=== PATIENT | male | born 1955 | race Caucasian/White ===

== ENCOUNTER 2024-07-12 10:14 | Inpatient (IN) ==
[2024-07-12 11:24] LABS: Basophils # (auto) 0.02 K/uL (0.00-0.20); Basophils % (auto) 0.1 %; Hematocrit (blood only) 36.1 % (42.0-52.0); Hemoglobin 12.1 g/dl (14.0-18.0); Immature Granulocytes # (auto) 0.14 K/uL (0.01-0.20); Lymphocytes # (auto) 0.85 K/uL (1.20-3.40); Lymphocytes % (auto) 6.2 %; Mean Corpuscular Hemoglobin 30.3 pg (25.0-34.0); Mean Corpuscular Hgb Conc 33.5 g/dL (32.0-36.0); Mean Corpuscular Volume 90.3 fL (80.0-100.0); Mean Platelet Volume 11.8 fL (9.4-12.4); Monocytes # (auto) 1.06 K/uL (0.11-0.59); Monocytes % (auto) 7.7 %; Neutrophils # (auto) 11.68 K/uL (1.40-6.50); Platelet Count 155 K/uL (130-400); RDW Standard Deviation 49.1 fL (36.4-46.3); White Blood Count 13.75 K/ul (4.8-10.8)
[2024-07-12 11:42] LABS: Albumin Level 3.4 gm/dl (3.4-5.0); BUN Creatinine Ratio 21.2 (10-20); Bilirubin Direct 0.6 mg/dl (0-0.2); Bilirubin,Total 1.3 mg/dl (0.2-1.0); Calcium 9.4 mg/dl (8.6-10.3); Creatinine Clr Calc Pharmacy 37.2 ml/min; Total Protein 5.8 gm/dl (6.0-8.3)
[2024-07-12 11:47] LABS: INR 1.1 (0.9-1.1); Partial Thromboplastin Ratio 0.9; Partial Thromboplastin Time 24 Seconds (21-31)
--- NOTE | 2024-07-12 11:47 | Emergency Department Note ---
History of Present Illness General Chief complaint: Flu Like Symptoms Stated complaint: WEEZING, COUGH, CONGESTION, DIARRHEA Time Seen by Provider: 07/12/24 10:37 History of Present Illness Provider Complaint: + nausea, + diarrhea and + abdominal pain Onset (ago): month(s) (2) Description of Vomiting: no bilious, no blood-streaked, no bloody or no coffee grounds Description of Diarrhea: no bloody (bright red) Associated Abdominal Pain: Yes Location of pain: + epigastric Severity: mild Maximum Pain Intensity: 3 Quality: + aching and + dull Pain Consistency: + intermittent Relieved By: + none Exacerbated By: + none Context: + recent antibiotic use; no alcohol abuse, no anticoagulant use or no marijuana use Associated symptoms: + cough; no myalgias, no chest pain, no dysuria, no syncope or no decreased urine output HPI Narrative: Patient reports that his symptoms have been going on since . He reports recently started wheezing also. Patient states he went to [facility] where they did tests but they have all come back negative. Home Medications Medication Instructions Recorded Confirmed Type betamethasone dipropionate 0.05 % 1 applic topical BID PRN skin 08/03/21 07/12/24 Rx topical cream irritation #45 grams carvedilol 25 mg tablet 25 mg PO BID #60 tabs 08/03/21 07/12/24 Rx nifedipine 60 mg tablet,extended 60 mg PO BID #30 tabs 08/03/21 07/12/24 Rx release triamcinolone acetonide 0.1 % 1 applic topical BID PRN Dry 08/03/21 07/12/24 Rx topical cream scaling areas #15 grams fexofenadine 180 mg tablet 180 mg PO QAM PRN Allergies 07/04/23 07/12/24 History finasteride 5 mg tablet 5 mg PO DAILY #90 tabs 08/13/23 07/12/24 Rx rosuvastatin 40 mg tablet 40 mg PO QPM #90 tabs 11/04/23 07/12/24 Rx empagliflozin 25 mg tablet 25 mg PO QAM #90 tabs 03/31/24 07/12/24 Rx sildenafil (pulm.hypertension) 20 40 mg (2 x 20 mg) PO 3XWK #90 tabs 04/01/24 07/12/24 Rx mg tablet (Revatio) tamsulosin 0.4 mg capsule 0.8 mg (2 x 0.4 mg) PO QPM #180 04/01/24 07/12/24 Rx caps lisinopril 40 mg tablet 40 mg PO QAM #90 tabs 06/19/24 07/12/24 Rx fluticasone 55 mcg-salmeterol 14 1 inh inhalation BID 07/12/24 07/12/24 History mcg/actuation breath activated powder lansoprazole 30 mg capsule,delayed 30 mg PO DAILY PRN heart burn 07/12/24 07/12/24 History release meloxicam 15 mg tablet 15 mg PO DAILY PRN Pain 07/12/24 07/12/24 History Allergies Allergy/AdvReac Type Severity Reaction Status Date / Time No Known Allergies Allergy Verified 05/14/24 10:40 Past Med/Surg History Problem List (Updated 07/12/24 @ 14:40 by Sebastien Johns MD) Transaminitis (Acute) Acute hypokalemia (Acute) Metastatic primary lung cancer (Acute) Diabetes Osteoarthritis Chronic Kidney Disease Hyperlipidemia BPH (benign prostatic hyperplasia) Tobacco dependence due to cigarettes Hypertension Medical History Full thickness rotator cuff tear History of COVID-19 2020, mild symptoms Surgical History History of arthroscopy of right shoulder 18 years ago History of colonoscopy Hx of LASIK bilateral Family History Son Kidney disease Social History Smoking Status: Current every day smoker Tobacco Type: Cigarettes Age Started Using Tobacco: 19; packs per day: 1.5; Cigarettes Per Day: 1.5 packs per day/50 years; Second Hand Exposure: Yes (childhood); Do You Dip or Chew Tobacco: No; Hx Alcohol Use: Yes Alcohol type: hard liquor Alcohol Intake Frequency: 2-4 x/Month Hx Substance Use: No Preferred Language: Belgian 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 Beliefs That Will Affect Care: None marital status: marital status details: but still living together Current Living Situation: Spouse current occupational status: retired How many Children do You have: 2 Feels Safe at Home: Yes Childhood Exposure to Second-Hand Smoke: Yes Diet: regular caffeine: Yes Dental Care, Regularly: Yes Physical Activity Frequency: Other Physical Activity Frequency Comment: Outside work Seatbelt Use: sometimes Sunscreen Use: Yes Assistive Devices: None Physical Exam 2 Vital Signs: Vital Signs - 24 hr 07/12/24 10:29 07/12/24 11:30 07/12/24 11:30 Temperature 36.5 C Temperature Source Temporal Artery Sc an Pulse Rate 87 82 Pulse Rate from Sp O2 Sensor 82 Respiratory Rate 20 14 Blood Pressure 115/67 133/67 Blood Pressure Candice n 83 88 Pulse Oximetry 94 94 Oxygen Delivery Me thod Room Air Sepsis Recent Feve r Within 48 Hours No Sepsis New/Unexpla ined Change in Men francisco Status N/A Sepsis Action Take n by Nursing No Action Required 07/12/24 11:36 07/12/24 12:00 07/12/24 12:48 Temperature Temperature Source Pulse Rate 81 86 Pulse Rate from Sp O2 Sensor 81 85 Respiratory Rate 18 17 Blood Pressure 137/80 Blood Pressure Candice n 106 Pulse Oximetry 93 94 Oxygen Delivery Me thod Sepsis Recent Feve r Within 48 Hours Sepsis New/Unexpla ined Change in Men francisco Status Sepsis Action Take n by Nursing 07/12/24 12:50 07/12/24 12:54 07/12/24 13:00 Temperature Temperature Source Pulse Rate 85 88 Pulse Rate from Sp O2 Sensor 87 Respiratory Rate 24 Blood Pressure 127/71 Blood Pressure Candice n 79 Pulse Oximetry 95 Oxygen Delivery Me thod Sepsis Recent Feve r Within 48 Hours Sepsis New/Unexpla ined Change in Men francisco Status Sepsis Action Take n by Nursing 07/12/24 13:03 07/12/24 13:30 07/12/24 13:30 Temperature Temperature Source Pulse Rate 88 85 Pulse Rate from Sp O2 Sensor 85 Respiratory Rate 19 Blood Pressure 123/76 Blood Pressure Candice n 77 Pulse Oximetry 93 Oxygen Delivery Me thod Sepsis Recent Feve r Within 48 Hours Sepsis New/Unexpla ined Change in Men francisco Status Sepsis Action Take n by Nursing 07/12/24 14:00 07/12/24 14:00 07/12/24 14:00 Temperature Temperature Source Pulse Rate 82 Pulse Rate from Sp O2 Sensor 82 Respiratory Rate 20 Blood Pressure 129/69 129/69 Blood Pressure Candice n 85 85 Pulse Oximetry 93 Oxygen Delivery Me thod Sepsis Recent Feve r Within 48 Hours Sepsis New/Unexpla ined Change in Men francisco Status Sepsis Action Take n by Nursing Physical Exam: Physical Exam GENERAL: oriented to person, place, and time. appears well-developed and well- nourished. She does not appear distressed. HENT: Exam performed. -Head: Normocephalic and atraumatic. -Right Ear: External ear normal. No mastoid erythema -Left Ear: External ear normal. No mastoid erythema -Mouth/Throat: The oropharynx is clear and moist. No trismus in the jaw. No dental abscesses or uvula swelling. No oropharyngeal exudate or tonsillar abscesses. EYES: Conjunctivae and EOM are normal.Right eye exhibits no discharge. Left eye exhibits no discharge. No scleral icterus. NECK: Normal range of motion. Neck supple. No JVD present. No tracheal deviation and normal range of motion present. CV: Normal rate, regular rhythm, normal heart sounds and intact distal pulses. There is no peripheral edema. Palpable radial pulses bue. PULM/CHEST: Effort normal and breath sounds normal. No respiratory distress. No stridor. no wheezes.no rales. -Chest Wall: no tenderness to palpation ABD: The abdomen is soft. Bowel sounds are normal. no distension. No mass is present. There is tenderness to palpation of the right upper quadrant. Mild hepatomegaly. There is no rebound, no guarding, no Rodriguez's sign and no tenderness at McBurney's point. Rovsig negative MUSC/SKEL: Normal range of motion. There is no peripheral edema, tenderness or deformity. NEURO: Motor and sensation grossly intact. SKIN: Skin is warm and dry. not diaphoretic. PSYCH: normal mood and affect. Behavior is normal. Judgment and thought content normal. Course Course 1037: The patient was evaluated in room C2. A complete history and physical exam was performed Cardiac monitoring: An order was placed for continuous cardiac monitoring. The monitor shows a rate of 90 with sinus rhythm interpreted by me 1300: Vital signs stable. Labs show leukocytosis of 13.75 hemoglobin 12.1 platelet count 155. Coagulation studies unremarkable. Labs show a potassium of 3. Creatinine of 1.79. BUN 38. Total bilirubin 1.3 direct bilirubin 0.6 AST 116 ALT 138 alkaline phosphatase 368. Potassium will be repleted. Ultrasound shows heterogeneous liver which may be thought to be due to liver disease or metastasis. A CT of the abdomen with IV contrast was recommended. Patient has an elevated creatinine and a GFR of 40. Discussed with Dr. Vieira from radiology who reviewed the patient's chest x-ray is now saying a lesion on his chest x-ray that is concerning for cancer. He recommended CT of the chest abdomen pelvis without contrast. 1348:Vital signs stable. CT of the chest abdomen pelvis without contrast showed a left upper lobe mass with mediastinal lymphadenopathy concerning for central lung malignancy such as small cell carcinoma. There was associated innumerable hepatic metastasis and a possible left adrenal met with a L3 met also. A pulmonology consultation was recommended. I discussed the case with Dr. Gonzalez who reviewed the patient's CT of the chest and he recommended admission for further diagnostic workup. 1439: [facility] under Dr. Hill. Medical Decision Making Laboratory Data Attestation: I reviewed the patient's lab results. 07/12/24 11:05 07/12/24 11:05 Lab Results 07/12/24 07/12/24 Range/Units 11:03 11:05 WBC 13.75 H (4.8-10.8) K/ul RBC 4.00 L (4.70-6.10) M/uL Hgb 12.1 L (14.0-18.0) g/dl Hct 36.1 L (42.0-52.0) % MCV 90.3 (80.0-100.0) fL MCH 30.3 (25.0-34.0) pg MCHC 33.5 (32.0-36.0) g/dL RDW Std Deviation 49.1 H (36.4-46.3) fL RDW Coeff of [place] 15.0 H (11.5-14.5) % Plt Count 155 (130-400) K/uL MPV 11.8 (9.4-12.4) fL Immature Gran % (Auto) 1.0 % Neut % (Auto) 85.0 % Lymph % (Auto) 6.2 % [place] % (Auto) 7.7 % Eos % (Auto) 0.0 % Baso % (Auto) 0.1 % Neut # (Auto) 11.68 H (1.40-6.50) K/uL Lymph # (Auto) 0.85 L (1.20-3.40) K/uL [place] # (Auto) 1.06 H (0.11-0.59) K/uL Eos # (Auto) 0.00 (0.00-0.50) K/uL Baso # (Auto) 0.02 (0.00-0.20) K/uL Immature Gran # (Auto) 0.14 (0.01-0.20) K/uL PT 12.0 (9.0-12.0) Seconds INR 1.1 (0.9-1.1) APTT 24 (21-31) Seconds PTT Ratio 0.9 Sodium 144 (136-145) mmol/L Potassium 3.0 L (3.5-5.1) mmol/L Chloride 108 H (98-107) mmol/L Carbon Dioxide 27 (21-32) mmol/L Anion Gap 9 (3-11) BUN 38 H (6-23) mg/dl Creatinine 1.79 H (0.6-1.4) mg/dl Est Cr Clr Drug Dosing 37.2 ml/min eGFR 40.26 BUN/Creatinine Ratio 21.2 H (10-20) Glucose 177 H (70-99(Fasting)) mg/dl Calcium 9.4 (8.6-10.3) mg/dl Magnesium 2.0 (1.7-2.4) mg/dl Total Bilirubin 1.3 H (0.2-1.0) mg/dl Direct Bilirubin 0.6 H (0-0.2) mg/dl AST 116 H (13-39) U/L ALT 138 H (7-52) U/L Alkaline Phosphatase 368 H (34-104) U/L Total Protein 5.8 L (6.0-8.3) gm/dl Albumin 3.4 (3.4-5.0) gm/dl Lipase 77 (11-82) U/L Adenovirus (PCR) Not Detected (NotDetected) B. pertussis DNA (PCR) Not Detected (NotDetected) B.parapertussis DNA PCR Not Detected (NotDetected) C. pneumoniae DNA (PCR) Not Detected (NotDetected) Coronavirus OC43 (PCR) Not Detected (NotDetected) Coronavirus HKU1 (PCR) Not Detected (NotDetected) Coronavirus 229E (PCR) Not Detected (NotDetected) SARS-CoV-2 (PCR) Not Detected (NotDetected) Coronavirus NL63 (PCR) Not Detected (NotDetected) Human Metapneumovir PCR Not Detected (NotDetected) Influenza Type A (PCR) Not Detected (NotDetected) Influenza Type B (PCR) Not Detected (NotDetected) M. pneumoniae (PCR) Not Detected (NotDetected) Parainfluenza 1 (PCR) Not Detected (NotDetected) Parainfluenza 2 (PCR) Not Detected (NotDetected) Parainfluenza 3 (PCR) Not Detected (NotDetected) Parainfluenza 4 (PCR) Not Detected (NotDetected) RSV (PCR) Not Detected (NotDetected) Entero/Rhino (PCR) Not Detected (NotDetected) Imaging Data Radiologist's Impression: Chest/Abdomen X-ray 07/12/24 10:45 PA CHEST RADIOGRAPH AND UPRIGHT AND SUPINE AP RADIOGRAPHS OF THE ABDOMEN CLINICAL HISTORY: Epigastric pain. COMPARISON STUDY: Chest radiograph May 14, 2024. FINDINGS: There is no pneumothorax or pleural effusion. A 5.1 cm left hilar mass-like density is noted. Abnormal left mediastinal contours also noted within the expected location of the AP window. No consolidation is present to suggest pneumonia. There is no evidence for pulmonary edema. Mild reticulonodular interstitial thickening is present. IMPRESSION: 1. 5.1 cm left hilar mass-like density. This is suspicious for a lung neoplasm or left hilar adenopathy. A CT of the chest is recommended for further evaluation. 2. Abnormal left mediastinal contour suggestive of lymphadenopathy. 3. Mild reticulonodular interstitial thickening within the lungs. This could be due to tiny pulmonary nodules. ACT 112: Positive. There are findings on this exam that require communication between the performing entity and the patient following Patient Test Result Information Act ([place] Act 112) guidelines. Electronically signed by: Cheo Vieira M.D. 07/12/2024 12:46 PM Gallbladder Ultrasound 07/12/24 10:45 US gallbladder CLINICAL HISTORY: Epigastric pain. COMPARISON STUDY: No previous studies for comparison. FINDINGS: The liver is enlarged, measuring 23 cm in maximal dimension. The liver parenchyma is markedly heterogeneous. There is suggestion of innumerable echogenic foci within the liver. A 1.4 cm left hepatic lobe septated cyst is present. There is no biliary ductal dilatation. The gallbladder is contracted. No gallstones are identified. There is no gallbladder wall thickening. The pancreas is largely obscured. There is no right hydronephrosis. Several right renal cysts measure up to 7.5 cm. IMPRESSION: 1. Enlarged, markedly heterogeneous liver. This heterogeneity may be due to diffuse liver disease. However, metastatic disease could appear similar. A CT of the abdomen with IV contrast is recommended to exclude liver lesions. 2. No gallstones or biliary ductal dilatation. 3. Obscured pancreas. ACT 112: Negative or not required by law. Electronically signed by: Cheo Vieira M.D. 07/12/2024 12:34 PM Abdomen/Pelvis CT 07/12/24 12:53 CT OF THE ABDOMEN AND PELVIS WITHOUT CONTRAST CLINICAL HISTORY: Evaluate for liver metastases. COMPARISON STUDY: Right upper ultrasound performed earlier today. TECHNIQUE: Axial images of the abdomen and pelvis were obtained without IV contrast. Images were reviewed in the axial, sagittal, and coronal planes. Automated exposure control was utilized for the study. A dose lowering technique was utilized adhering to the principles of ALARA. FINDINGS: No pneumatosis, free air or portal venous gas is present. The liver is enlarged and contains innumerable hypodense hepatic lesions. Index right lobe lesion on image 116 measures 7.1 cm. The liver surface is lobulated. A left adrenal nodule measures 2.6 cm. Spleen, right adrenal gland, left kidney and pancreas are unremarkable. Water attenuation right renal lesions favor cysts. There is a small amount of fluid within the abdomen and pelvis. There is no evidence for a bowel obstruction. There is colonic diverticulosis without evidence for acute diverticulitis. There is a possible lytic lesion within the right aspect of the L3 vertebral body which measures approximately 2.5 cm. No enlarged abdominal or pelvic lymph nodes are identified. There is trace pericholecystic fluid. IMPRESSION: 1. Enlarged liver with innumerable hepatic lesions consistent with metastatic disease. Possible underlying cirrhosis. 2. 2.6 cm left adrenal nodule which is suspicious for a metastasis. 3. Possible L3 vertebral body metastasis. 4. Small amount of ascites. 5. No bowel obstruction. ACT 112: Negative or not required by law. Electronically signed by: Cheo Vieira M.D. 07/12/2024 1:[address] 07/12/24 12:53 CT OF THE CHEST WITHOUT IV CONTRAST CLINICAL HISTORY: Evaluate for lung mass. COMPARISON STUDY: Chest radiograph performed earlier today. CT DOSE: 896.28 mGy.cm TECHNIQUE: Axial images of the chest were obtained without IV contrast. Images were reviewed in the axial, sagittal, and coronal planes. IV contrast was not administered for this examination. Automated exposure control was utilized for the study. A dose lowering technique was utilized adhering to the principles of ALARA. FINDINGS: Extensive mediastinal and left hilar lymphadenopathy is noted. A 4.1 x 3.9 cm anterior left hilar mass on image 120 of 257 appears to be necrotic. There is an adjacent left upper lobe lesion which measures approximately 3.9 x 3 cm. AP window lymph node measures 4.9 x 3.1 cm. Index prevascular node measures 3 x 2.2 cm. A left supraclavicular/level 4 cervical lymph node measures 1.5 x 0.9 cm. There is no pericardial effusion. Trace left pleural effusion is present. There is no pneumothorax. Moderate left upper lobe alveolar opacities are present with interlobular septal thickening. There is no pneumothorax. Numerous small lucencies within the right scapular tip are noted. The abdomen and pelvis CT will be reported separately. The liver is enlarged and contains innumerable hypodense lesions. 2.6 cm left adrenal nodule is present. IMPRESSION: 1. Left upper lobe mass-like opacity and left hilar and mediastinal lymphadenopathy, as detailed above. The findings suggest a central lung malignancy such as small cell carcinoma. Pulmonary consultation is recommended. 2. Associated left upper lobe airspace opacity with interlobular septal thickening. This may reflect postobstructive change. Lymphangitic tumor could appear similar. 3. Extensive hepatic metastases. Probable left adrenal metastasis. 4. Numerous small lucencies within the right scapular tip suspicious for skeletal metastases. 5. Trace left pleural effusion. ACT 112: Negative or not required by law. Electronically signed by: Cheo Vieira M.D. 07/12/2024 1:37 PM ECG Data Attestation: I personally reviewed and interpreted this ECG as follows: Rate (beats per minute): 86 Rhythm: normal sinus Findings: + PVC and + RBBB; no ST depression, no ST elevation or no prolonged QT MDM Narrative 1037: The patient was evaluated in room C2. A complete history and physical exam was performed Cardiac monitoring: An order was placed for continuous cardiac monitoring. The monitor shows a rate of 90 with sinus rhythm interpreted by me 1300: Vital signs stable. Labs show leukocytosis of 13.75 hemoglobin 12.1 platelet count 155. Coagulation studies unremarkable. Labs show a potassium of 3. Creatinine of 1.79. BUN 38. Total bilirubin 1.3 direct bilirubin 0.6 AST 116 ALT 138 alkaline phosphatase 368. Potassium will be repleted. Ultrasound shows heterogeneous liver which may be thought to be due to liver disease or metastasis. A CT of the abdomen with IV contrast was recommended. Patient has an elevated creatinine and a GFR of 40. Discussed with Dr. Vieira from radiology who reviewed the patient's chest x-ray is now saying a lesion on his chest x-ray that is concerning for cancer. He recommended CT of the chest abdomen pelvis without contrast. 1348:Vital signs stable. CT of the chest abdomen pelvis without contrast showed a left upper lobe mass with mediastinal lymphadenopathy concerning for central lung malignancy such as small cell carcinoma. There was associated innumerable hepatic metastasis and a possible left adrenal met with a L3 met also. A pulmonology consultation was recommended. I discussed the case with Dr. Gonzalez who reviewed the patient's CT of the chest and he recommended admission for further diagnostic workup. 1439: Spoke with Ayaan Melissa [facility] [address] hospitalist and patient will be admitted under Dr. Hill. Impression & Plan Metastatic primary lung cancer, Acute hypokalemia, Transaminitis Discharge Plan Visit Data Chief Complaint: Flu Like Symptoms Stated Complaint: WEEZING, COUGH, CONGESTION, DIARRHEA ED Provider: Sebastein Johns Discharge Problem: Metastatic primary lung cancer, Acute hypokalemia, Transaminitis Patient Disposition: Admitted As Inpatient Forms Stand Alone Forms: My [facility] Prescriptions Prescriptions: No Action rosuvastatin 40 mg tablet 40 mg PO QPM Qty: 90 3RF Rx Instructions: every evening tamsulosin 0.4 mg capsule 0.8 mg PO QPM Qty: 180 3RF sildenafil (pulm.hypertension) [Revatio] 20 mg tablet 40 mg PO 3XWK Qty: 90 2RF lisinopril 40 mg tablet 40 mg PO QAM Qty: 90 3RF finasteride 5 mg tablet 5 mg PO DAILY Qty: 90 2RF betamethasone dipropionate 0.05 % cream 1 applic topical BID PRN (Reason: skin irritation) Qty: 45 0RF carvedilol 25 mg tablet 25 mg PO BID Qty: 60 2RF Rx Instructions: must administer with a meal/food nifedipine 60 mg tablet extended release 60 mg PO BID Qty: 30 2RF triamcinolone acetonide 0.1 % cream 1 applic topical BID PRN (Reason: Dry scaling areas) Qty: 15 0RF empagliflozin 25 mg tablet 25 mg PO QAM Qty: 90 3RF fexofenadine 180 mg tablet 180 mg PO QAM PRN (Reason: Allergies) meloxicam 15 mg tablet 15 mg PO DAILY PRN (Reason: Pain) lansoprazole 30 mg capsule,delayed release(DR/EC) 30 mg PO DAILY PRN (Reason: heart burn) fluticasone propion-salmeterol 55-14 mcg/actuation aerosol powdr breath activated 1 inh INHALATION BID Referrals Referrals: Harinder Cardenas DO [Primary Care Provider] -
[2024-07-12 12:14] LABS: Adenovirus PCR Not Detected (NotDetected); Bordetella parapertussis PCR Not Detected (NotDetected); Bordetella pertussis PCR Not Detected (NotDetected); Chlamydia pneumoniae PCR Not Detected (NotDetected); Coronavirus 229E PCR Not Detected (NotDetected); Coronavirus CoV-2 (COVID19)PCR Not Detected (NotDetected); Coronavirus HKU1 PCR Not Detected (NotDetected); Coronavirus NL63 PCR Not Detected (NotDetected); Coronavirus OC43PCR Not Detected (NotDetected); Human Metapneumovirus PCR Not Detected (NotDetected); Influenza A PCR Not Detected (NotDetected); Influenza B PCR Not Detected (NotDetected); Mycoplasma pneumoniae PCR Not Detected (NotDetected); Parainfluenza Virus 1 PCR Not Detected (NotDetected); Parainfluenza Virus 2 PCR Not Detected (NotDetected); Parainfluenza Virus 3 PCR Not Detected (NotDetected); Parainfluenza Virus 4 PCR Not Detected (NotDetected); Respiratory Syncytial VirusPCR Not Detected (NotDetected); Rhinovirus/Enterovirus PCR Not Detected (NotDetected)
--- NOTE | 2024-07-12 12:36 | Ultrasound Report ---
US gallbladder CLINICAL HISTORY: Epigastric pain. COMPARISON STUDY: No previous studies for comparison. FINDINGS: The liver is enlarged, measuring 23 cm in maximal dimension. The liver parenchyma is marked ly heterogeneous. There is suggestion of innumerable echogenic foci within the liver. A 1.4 cm left h epatic lobe septated cyst is present. There is no biliary ductal dilatation. The gallbladder is contr acted. No gallstones are identified. There is no gallbladder wall thickening. The pancreas is largely obscured. There is no right hydronephrosis. Several right renal cysts measure up to 7.5 cm. IMPRESSION: 1. Enlarged, markedly heterogeneous liver. This heterogeneity may be due to diffuse liver disease. H owever, metastatic disease could appear similar. A CT of the abdomen with IV contrast is recommended to exclude liver lesions. 2. No gallstones or biliary ductal dilatation. 3. Obscured pancreas. ACT 112: Negative or not required by law. Electronically signed by: Cheo Vieira M.D. 07/12/2024 12:34 PM
--- NOTE | 2024-07-12 12:48 | XRay Report ---
PA CHEST RADIOGRAPH AND UPRIGHT AND SUPINE AP RADIOGRAPHS OF THE ABDOMEN CLINICAL HISTORY: Epigastric pain. COMPARISON STUDY: Chest radiograph May 14, 2024. FINDINGS: There is no pneumothorax or pleural effusion. A 5.1 cm left hilar mass-like density is not ed. Abnormal left mediastinal contours also noted within the expected location of the AP window. No c onsolidation is present to suggest pneumonia. There is no evidence for pulmonary edema. Mild reticulo nodular interstitial thickening is present. IMPRESSION: 1. 5.1 cm left hilar mass-like density. This is suspicious for a lung neoplasm or left hilar adenopat hy. A CT of the chest is recommended for further evaluation. 2. Abnormal left mediastinal contour suggestive of lymphadenopathy. 3. Mild reticulonodular interstitial thickening within the lungs. This could be due to tiny pulmonary nodules. ACT 112: Positive. There are findings on this exam that require communication between the performing entity and the patient following Patient Test Result Information Act ([place] Act 112) guidelines. Electronically signed by: Cheo Vieira M.D. 07/12/2024 12:46 PM
--- NOTE | 2024-07-12 13:40 | CT Scan Report ---
CT OF THE CHEST WITHOUT IV CONTRAST CLINICAL HISTORY: Evaluate for lung mass. COMPARISON STUDY: Chest radiograph performed earlier today. CT DOSE: 896.28 mGy.cm TECHNIQUE: Axial images of the chest were obtained without IV contrast. Images were reviewed in the axial, sagittal, and coronal planes. IV contrast was not administered for this examination. Automat ed exposure control was utilized for the study. A dose lowering technique was utilized adhering to t he principles of ALARA. FINDINGS: Extensive mediastinal and left hilar lymphadenopathy is noted. A 4.1 x 3.9 cm anterior lef t hilar mass on image 120 of 257 appears to be necrotic. There is an adjacent left upper lobe lesion which measures approximately 3.9 x 3 cm. AP window lymph node measures 4.9 x 3.1 cm. Index prevascula r node measures 3 x 2.2 cm. A left supraclavicular/level 4 cervical lymph node measures 1.5 x 0.9 cm. There is no pericardial effusion. Trace left pleural effusion is present. There is no pneumothorax. Moderate left upper lobe alveolar opacities are present with interlobular septal thickening. There is no pneumothorax. Numerous small lucencies within the right scapular tip are noted. The abdomen and p maria luisa CT will be reported separately. The liver is enlarged and contains innumerable hypodense lesion s. 2.6 cm left adrenal nodule is present. IMPRESSION: 1. Left upper lobe mass-like opacity and left hilar and mediastinal lymphadenopathy, as detailed abov e. The findings suggest a central lung malignancy such as small cell carcinoma. Pulmonary consultatio n is recommended. 2. Associated left upper lobe airspace opacity with interlobular septal thickening. This may reflect postobstructive change. Lymphangitic tumor could appear similar. 3. Extensive hepatic metastases. Probable left adrenal metastasis. 4. Numerous small lucencies within the right scapular tip suspicious for skeletal metastases. 5. Trace left pleural effusion. ACT 112: Negative or not required by law. Electronically signed by: Cheo Vieira M.D. 07/12/2024 1:37 PM
--- NOTE | 2024-07-12 13:57 | CT Scan Report ---
CT OF THE ABDOMEN AND PELVIS WITHOUT CONTRAST CLINICAL HISTORY: Evaluate for liver metastases. COMPARISON STUDY: Right upper ultrasound performed earlier today. TECHNIQUE: Axial images of the abdomen and pelvis were obtained without IV contrast. Images were revi ewed in the axial, sagittal, and coronal planes. Automated exposure control was utilized for the rhonda dy. A dose lowering technique was utilized adhering to the principles of ALARA. FINDINGS: No pneumatosis, free air or portal venous gas is present. The liver is enlarged and contain s innumerable hypodense hepatic lesions. Index right lobe lesion on image 116 measures 7.1 cm. The li becki surface is lobulated. A left adrenal nodule measures 2.6 cm. Spleen, right adrenal gland, left ki dney and pancreas are unremarkable. Water attenuation right renal lesions favor cysts. There is a sma ll amount of fluid within the abdomen and pelvis. There is no evidence for a bowel obstruction. There is colonic diverticulosis without evidence for acute diverticulitis. There is a possible lytic lesio n within the right aspect of the L3 vertebral body which measures approximately 2.5 cm. No enlarged a bdominal or pelvic lymph nodes are identified. There is trace pericholecystic fluid. IMPRESSION: 1. Enlarged liver with innumerable hepatic lesions consistent with metastatic disease. Possible under lying cirrhosis. 2. 2.6 cm left adrenal nodule which is suspicious for a metastasis. 3. Possible L3 vertebral body metastasis. 4. Small amount of ascites. 5. No bowel obstruction. ACT 112: Negative or not required by law. Electronically signed by: Cheo Vieira M.D. 07/12/2024 1:55 PM
[2024-07-12] MEDS: POTASSIUM CHLORIDE 10 MEQ TABCR PO STA (14:40)
--- NOTE | 2024-07-12 16:02 | History & Physical Report ---
Date of Service July 12, 2024 Assessment & Plan (1) Metastatic primary lung cancer: Plan: Although not proven with diagnostic tissue, imaging supports likely diagnosis of left upper lobe malignancy with metastasis to the left adrenal gland and liver. There is a questionable lesion at the L3 vertebrae. Patient reports that this was identified several years ago. Long discussion with patient and family regarding probable course of diagnostics and treatment Will consult pulmonary for consideration of robotic navigation bronchoscopy versus EBUS for tissue diagnosis of the lung Patient to be made n.p.o. at midnight. Hold meloxicam. Avoid NSAIDs to avoid bleeding risk Avoid Tylenol due to elevated LFTs Patient agrees to low-dose oxycodone as needed for pain at this time Further workup and management per pulmonary team (2) Transaminitis: Plan: Labs from 05/14/2024 within normal target range Imaging shows multiple hepatic implants consistent with metastatic disease At this time we will follow LFTs serially. No indication for high-volume fluids to treat transaminitis as it is most likely secondary to malignancy (3) Acute hypokalemia: Plan: Potassium is 3.0 Patient received 40 mill equivalents of potassium chloride by mouth in the emergency department Check repeat labs at 20:00 tonight and then serial labs in the a.m. Magnesium level 2.0 (4) Diabetes: Plan: Yxe-jccdtry-mxtimhurs Continue home medications Hemoglobin A1c 6.3% on 05/14/2024 (5) Chronic Kidney Disease: Plan: Follows with Dr. Dunn from [facility] in the [facility] Creatinine slightly elevated above normal and currently 1.79 Check serial labs in the morning (6) Tobacco dependence due to cigarettes: Plan: Greater than [id number] smoking history Currently smokes 1-1/2 packs/day No interest in smoking cessation at this time Will offer patient nicotine patch while inpatient (7) BPH (benign prostatic hyperplasia): Plan: Patient does get up during the night to urinate but has no pain and no hematuria Continue regular home meds (8) Hypertension: Plan: Blood pressure currently controlled at 129/81 Continue lisinopril 40 mg p.o. daily, carvedilol 25 mg p.o. twice daily, nifedipine 60 mg p.o. twice daily Continue rosuvastatin for hyperlipidemia (9) Pulmonary hypertension: Plan: Although I do not see pulmonary pressures on an echocardiogram, I did review cardiology note from 02/22/2022 at that time, patient was on sildenafil. Will continue at this time Further management with outpatient cardiology Plan Will hold anticoagulation at this time pending pulmonary workup SCDs as well as knee-high teds have been ordered Consider chemical prophylaxis after biopsies are completed Anticipate discharge home with family History of Present Illness Chief Complaint: Abdominal pain Primary Care Provider: Harinder Cardenas DO Attending: Dr. Kapoor This is a 69-year-old male with a past medical history of diabetes mellitus (khs-iitbokv-ffmdiuhod), BPH, CKD, hypertension, pulmonary hypertension on sildenafil, ongoing tobacco abuse. Patient presented to the emergency department for evaluation secondary to abdominal pain. He was found to have elevated LFTs. An ultrasound the abdomen was completed and showed multiple liver implants. Patient then received a CT chest abdomen pelvis (without contrast secondary to elevated creatinine) which revealed left upper lobe mass as well as possible metastatic implants to the L3 vertebrae and multiple scattered areas on the liver, and a 2.6 cm left adrenal nodule. Patient is being admitted for control of abdominal pain as well as workup for probable small cell carcinoma of the lung. 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 He does report that he smokes approximately 1-1/2 packs/day and has smoked for the past 60 years. No prior history of malignancy. Patient lives in the [facility] and follows with Dr. Daniel Dunn for chronic kidney disease. Creatinine is slightly elevated today at 1.79. BUN is 38. Patient denies any nausea or vomiting. He does have some diarrhea but this morning had a solid stool. He denies any hematochezia or melena. Patient does report history of hemorrhoids. ECG reveals normal sinus rhythm with PACs. There is also a right bundle branch block with a QTc of 512 ms. Potassium level is decreased at 3.0. Magnesium level is 2.0. LFTs are elevated with a total bilirubin of 1.3 and a direct bilirubin 0.6. AST 116, ALT 138, alkaline phosphatase 368, total protein 5.8, albumin 3.4, lipase 77. Patient did have labs on 05/14/2024. At that time LFTs were within target range. Patient does have a history of pulmonary hypertension and is currently being treated with sildenafil. No previous echocardiogram in [facility]. Cardiology note from 02/22/2022 reviewed. * Echocardiogram September 2019: Left ventricular ejection fraction 60%. AoR 2.8 cm. Mild TR. Thickened mitral valve. Trileaflet aortic valve. MAC, normal DF * Stress echocardiogram September 2020: Mario for: 5 1, 7 METS, 104% MPHR, study within normal limits * Carotid study February 2021: Mild less than 50% stenosis bilaterally * No mention of pulmonary hypertension in that note. However med list was reviewed and patient was on sildenafil (Revatio) 40 mg by mouth 3 times weekly. Patient reports to he has had back pain for greater than 20 years and was told that he had an area on the L3 vertebrae at that time. He is currently on meloxicam daily. This will be held pending biopsies. Patient denies any fever, chills, sweats, rigors. Pain is generally controlled at this time. We did discuss pain management and he agrees to trials of oxycodone so that we can avoid acetaminophen due to elevated LFTs and avoid NSAIDs to decrease risk of bleeding during procedures. Allergies Allergy/AdvReac Type Severity Reaction Status Date / Time No Known Allergies Allergy Verified 05/14/24 10:40 Home Medications Medication Instructions Recorded Confirmed Type betamethasone dipropionate 0.05 % 1 applic topical BID PRN skin 08/03/21 07/12/24 Rx topical cream irritation #45 grams carvedilol 25 mg tablet 25 mg PO BID #60 tabs 08/03/21 07/12/24 Rx nifedipine 60 mg tablet,extended 60 mg PO BID #30 tabs 08/03/21 07/12/24 Rx release triamcinolone acetonide 0.1 % 1 applic topical BID PRN Dry 08/03/21 07/12/24 Rx topical cream scaling areas #15 grams fexofenadine 180 mg tablet 180 mg PO QAM PRN Allergies 07/04/23 07/12/24 History finasteride 5 mg tablet 5 mg PO DAILY #90 tabs 08/13/23 07/12/24 Rx rosuvastatin 40 mg tablet 40 mg PO QPM #90 tabs 11/04/23 07/12/24 Rx empagliflozin 25 mg tablet 25 mg PO QAM #90 tabs 03/31/24 07/12/24 Rx sildenafil (pulm.hypertension) 20 40 mg (2 x 20 mg) PO 3XWK #90 tabs 04/01/24 07/12/24 Rx mg tablet (Revatio) tamsulosin 0.4 mg capsule 0.8 mg (2 x 0.4 mg) PO QPM #180 04/01/24 07/12/24 Rx caps lisinopril 40 mg tablet 40 mg PO QAM #90 tabs 06/19/24 07/12/24 Rx fluticasone 55 mcg-salmeterol 14 1 inh inhalation BID 07/12/24 07/12/24 History mcg/actuation breath activated powder lansoprazole 30 mg capsule,delayed 30 mg PO DAILY PRN heart burn 07/12/24 07/12/24 History release meloxicam 15 mg tablet 15 mg PO DAILY PRN Pain 07/12/24 07/12/24 History Past Med/Surg History Problem List (Updated 07/12/24 @ 18:39 by Beckie Gonzalez MD, [facility]) Metastasis to liver LAD (lymphadenopathy), mediastinal Lung mass Chronic bronchitis COPD with emphysema Pulmonary hypertension Transaminitis (Acute) Acute hypokalemia (Acute) Metastatic primary lung cancer (Acute) Diabetes Osteoarthritis Chronic Kidney Disease Hyperlipidemia BPH (benign prostatic hyperplasia) Tobacco dependence due to cigarettes Hypertension Medical History Full thickness rotator cuff tear History of COVID-2019, mild symptoms Surgical History History of arthroscopy of right shoulder 18 years ago History of colonoscopy Hx of LASIK bilateral Family History Son Kidney disease Social History Smoking Status: Current every day smoker Tobacco Type: Cigarettes Age Started Using Tobacco: 19; packs per day: 1.5; Cigarettes Per Day: 1.5 packs per day/50 years; Second Hand Exposure: Yes (childhood); Do You Dip or Chew Tobacco: No; Hx Alcohol Use: Yes Alcohol type: hard liquor Alcohol Intake Frequency: 2-4 x/Month Hx Substance Use: No Preferred Language: Japanese Systems Qa Analyst Required: No Beliefs That Will Affect Care: None marital status: marital status details: but still living together Current Living Situation: Spouse current occupational status: retired How many Children do You have: 2 Feels Safe at Home: Yes Childhood Exposure to Second-Hand Smoke: Yes Diet: regular caffeine: Yes Dental Care, Regularly: Yes Physical Activity Frequency: Other Physical Activity Frequency Comment: Outside work Seatbelt Use: sometimes Sunscreen Use: Yes Assistive Devices: None Review of Systems 2 Review of Systems: A total of 10 systems was reviewed and is negative other than as listed in the HPI Physical Exam 2 Physical Exam: GENERAL : No acute distress EYES: No icterus, gaze conjugate NOSE: No evidence of epistaxis MOUTH: No lesions or candidiasis NECK: Supple LUNGS: Rales and rhonchi on the left posterior upper and lower lombardi. Right lung lombardi are clear to auscultation. Good inspirational effort HEART: Regular, rate controlled ABDOMEN: Soft, BS Present. Patient did have pain in the midepigastric region with light palpation. He also had guarding and some pain present in the right upper quadrant. Limited pain in the left upper quadrant. No pain in the right or left lower quadrants. No appreciation of abdominal bruit. EXTREMITIES: No LE edema, pedal pulses intact and equal bilaterally NEURO: A&OX3. Pupils equal round and reactive to light. Tongue is midline. No facial droop. Brachial radialis, bicep tendon, and patellar tendons 2/4 bilaterally. Strength is equal and appropriate bilaterally. Cerebellar function is intact with rapid alternating movements, [id number], [id number]. Toes are downgoing bilaterally. Sensation is equal and appropriate bilaterally to lower extremities. No slurred speech. No apparent cognitive deficits. Results & Data Results & Data Vital Signs (Past 12 Hours) Vital Signs Temp Pulse Resp BP Pulse Ox O2 Del Method 07/12/24 14:36 99 H 18 93 07/12/24 14:30 129/81 07/12/24 14:12 94 H 21 94 07/12/24 14:00 129/69 07/12/24 14:00 129/69 07/12/24 14:00 129/69 07/12/24 14:00 82 20 93 07/12/24 13:30 85 19 93 07/12/24 13:30 123/76 07/12/24 13:03 88 07/12/24 13:00 127/71 07/12/24 12:54 88 24 95 07/12/24 12:50 85 07/12/24 12:48 86 17 94 07/12/24 12:00 137/80 07/12/24 11:36 81 18 93 07/12/24 11:30 82 14 94 07/12/24 11:30 133/67 07/12/24 10:45 95 Room Air 07/12/24 10:29 36.5 C 87 20 115/67 94 Room Air Laboratory Results 07/12/24 11:05 07/12/24 11:05 Laboratory Tests 07/12/24 11:05 Magnesium 2.0 Laboratory Tests 07/12/24 11:05 Total Bilirubin 1.3 H Direct Bilirubin 0.6 H AST 116 H ALT 138 H Alkaline Phosphatase 368 H Total Protein 5.8 L Albumin 3.4 Lipase 77 Diagnostic Findings Chest/Abdomen X-ray 07/12/24 10:45 PA CHEST RADIOGRAPH AND UPRIGHT AND SUPINE AP RADIOGRAPHS OF THE ABDOMEN CLINICAL HISTORY: Epigastric pain. COMPARISON STUDY: Chest radiograph May 14, 2024. FINDINGS: There is no pneumothorax or pleural effusion. A 5.1 cm left hilar mass-like density is noted. Abnormal left mediastinal contours also noted within the expected location of the AP window. No consolidation is present to suggest pneumonia. There is no evidence for pulmonary edema. Mild reticulonodular interstitial thickening is present. IMPRESSION: 1. 5.1 cm left hilar mass-like density. This is suspicious for a lung neoplasm or left hilar adenopathy. A CT of the chest is recommended for further evaluation. 2. Abnormal left mediastinal contour suggestive of lymphadenopathy. 3. Mild reticulonodular interstitial thickening within the lungs. This could be due to tiny pulmonary nodules. ACT 112: Positive. There are findings on this exam that require communication between the performing entity and the patient following Patient Test Result Information Act ([place] Act 112) guidelines. Electronically signed by: Cheo Vieira M.D. 07/12/2024 12:46 PM Gallbladder Ultrasound 07/12/24 10:45 US gallbladder CLINICAL HISTORY: Epigastric pain. COMPARISON STUDY: No previous studies for comparison. FINDINGS: The liver is enlarged, measuring 23 cm in maximal dimension. The liver parenchyma is markedly heterogeneous. There is suggestion of innumerable echogenic foci within the liver. A 1.4 cm left hepatic lobe septated cyst is present. There is no biliary ductal dilatation. The gallbladder is contracted. No gallstones are identified. There is no gallbladder wall thickening. The pancreas is largely obscured. There is no right hydronephrosis. Several right renal cysts measure up to 7.5 cm. IMPRESSION: 1. Enlarged, markedly heterogeneous liver. This heterogeneity may be due to diffuse liver disease. However, metastatic disease could appear similar. A CT of the abdomen with IV contrast is recommended to exclude liver lesions. 2. No gallstones or biliary ductal dilatation. 3. Obscured pancreas. ACT 112: Negative or not required by law. Electronically signed by: Cheo Vieira M.D. 07/12/2024 12:34 PM Abdomen/Pelvis CT 07/12/24 12:53 CT OF THE ABDOMEN AND PELVIS WITHOUT CONTRAST CLINICAL HISTORY: Evaluate for liver metastases. COMPARISON STUDY: Right upper ultrasound performed earlier today. TECHNIQUE: Axial images of the abdomen and pelvis were obtained without IV contrast. Images were reviewed in the axial, sagittal, and coronal planes. Automated exposure control was utilized for the study. A dose lowering technique was utilized adhering to the principles of ALARA. FINDINGS: No pneumatosis, free air or portal venous gas is present. The liver is enlarged and contains innumerable hypodense hepatic lesions. Index right lobe lesion on image 116 measures 7.1 cm. The liver surface is lobulated. A left adrenal nodule measures 2.6 cm. Spleen, right adrenal gland, left kidney and pancreas are unremarkable. Water attenuation right renal lesions favor cysts. There is a small amount of fluid within the abdomen and pelvis. There is no evidence for a bowel obstruction. There is colonic diverticulosis without evidence for acute diverticulitis. There is a possible lytic lesion within the right aspect of the L3 vertebral body which measures approximately 2.5 cm. No enlarged abdominal or pelvic lymph nodes are identified. There is trace pericholecystic fluid. IMPRESSION: 1. Enlarged liver with innumerable hepatic lesions consistent with metastatic disease. Possible underlying cirrhosis. 2. 2.6 cm left adrenal nodule which is suspicious for a metastasis. 3. Possible L3 vertebral body metastasis. 4. Small amount of ascites. 5. No bowel obstruction. ACT 112: Negative or not required by law. Electronically signed by: Cheo Vieira M.D. 07/12/2024 1:[address] 07/12/24 12:53 CT OF THE CHEST WITHOUT IV CONTRAST CLINICAL HISTORY: Evaluate for lung mass. COMPARISON STUDY: Chest radiograph performed earlier today. CT DOSE: 896.28 mGy.cm TECHNIQUE: Axial images of the chest were obtained without IV contrast. Images were reviewed in the axial, sagittal, and coronal planes. IV contrast was not administered for this examination. Automated exposure control was utilized for the study. A dose lowering technique was utilized adhering to the principles of ALARA. FINDINGS: Extensive mediastinal and left hilar lymphadenopathy is noted. A 4.1 x 3.9 cm anterior left hilar mass on image 120 of 257 appears to be necrotic. There is an adjacent left upper lobe lesion which measures approximately 3.9 x 3 cm. AP window lymph node measures 4.9 x 3.1 cm. Index prevascular node measures 3 x 2.2 cm. A left supraclavicular/level 4 cervical lymph node measures 1.5 x 0.9 cm. There is no pericardial effusion. Trace left pleural effusion is present. There is no pneumothorax. Moderate left upper lobe alveolar opacities are present with interlobular septal thickening. There is no pneumothorax. Numerous small lucencies within the right scapular tip are noted. The abdomen and pelvis CT will be reported separately. The liver is enlarged and contains innumerable hypodense lesions. 2.6 cm left adrenal nodule is present. IMPRESSION: 1. Left upper lobe mass-like opacity and left hilar and mediastinal lymphadenopathy, as detailed above. The findings suggest a central lung malignancy such as small cell carcinoma. Pulmonary consultation is recommended. 2. Associated left upper lobe airspace opacity with interlobular septal thickening. This may reflect postobstructive change. Lymphangitic tumor could appear similar. 3. Extensive hepatic metastases. Probable left adrenal metastasis. 4. Numerous small lucencies within the right scapular tip suspicious for skeletal metastases. 5. Trace left pleural effusion. ACT 112: Negative or not required by law. Electronically signed by: Cheo Vieira M.D. 07/12/2024 1:37 PM ECG Additional Comments: Code Status & VTE Plan Code Status Full resuscitation VTE Prophylaxis Plan VTE Prophylaxis will be ordered: Yes Supervising Physician Co-Signing Physician Notes I personally examined the patient and verified all funes points of history and exam, discussed case, and agree with decision making with Carlene BOWMAN abdominal pain. diagnostics noted. extensive d/w pt and family and answered all questions to the best of my ability. vitals noted nad heent nc at mmm breathing unlabored no accessory muscles good effort skin no rashes no pallor or icterus neuro no focal deficits new dx lung ca w liver mets - MRI brain, biopsy. outpt PET. pain control. outpt oncology and ongoing PCP f/u. discussed critical importance of getting enough nutrition when going through cancer/treatments - consult catapult and arresting gear officer to emphasize this and explain in different terms as well. otherwise as above PG Care Time/CCT Total # of Minutes Spent Total Time Spent with Patient: Total time spent is greater than 50% in coordination of care (as documented) at patient's floor/unit and/or counseling patient: 60 minutes wand-gs-vnel with patient, , daughter. Additional 15 minutes in discussion with attending physician. Coding Level of Care Code 21154 INT INP/OBS CARE 3/75MIN Diagnoses Metastatic primary lung cancer C34.90 Transaminitis R74.01 Acute hypokalemia E87.6 Diabetes E11.9 Chronic Kidney Disease N18.9 Tobacco dependence due to cigarettes F17.210 BPH (benign prostatic hyperplasia) N40.0 Hypertension I10 Pulmonary hypertension I27.20 Time Spent (min) 75
--- NOTE | 2024-07-12 17:18 | Pulmonary Consultation ---
Date of Consultation July 12, 2024 Assessment & Plan (1) Tobacco dependence due to cigarettes: (2) COPD with emphysema: (3) Chronic bronchitis: (4) Lung mass: (5) LAD (lymphadenopathy), mediastinal: (6) Metastasis to liver: Plan CT chest 07/12/2024 personally reviewed: Centrilobular emphysema appreciated bilaterally Left hilar mass with significant mediastinal lymphadenopathy -- Left hilar mass with significant mediastinal lymphadenopathy Metastasis to the liver With the bulky lymphadenopathy, small cell cancer is high in differential -- COPD with emphysema with chronic bronchitis On Advair HFA 55 at home Respiratory BioFire negative for everything on 07/12/2024 Recommend Spiriva or Incruse to be added to patient's regimen on discharge Plan: Given the significant liver metastasis, IR guided biopsy of the liver lesion will give us a diagnosis as well as staging IR consult has been placed Recommend MRI of the brain if not already ordered Mucinex and flutter valve for bronchitis and chest congestion All questions inquiries of the patient and patient's family were answered in depth Please note the above document was generated using voice recognition software. It may contain grammatical, syntax or spelling errors.Any formal questions or concerns about the content, text or information contained within the body of this dictation should be directly addressed to the provider for clarification. History of Present Illness History of Present Illness 69-year-old male present to the hospital for abdominal pain Past medical history: Diabetes, CKD, hypertension, BPH Pulmonary consulted for abnormal chest CT Case was discussed with Dr. Johns and brief signout was given from them in the ER At the time of examination patient's family was in the room. Patient was saturating 93-94% on room air. Heart rate was in the high 80s to low 90s He was not in any respiratory distress. Respiratory rate was in the high teens. The reason patient came to the hospital was abdominal pain. He denied any issues with his breathing He is compliant with his inhaler and uses on a regular basis He does have occasional cough, does have chest congestion and difficulty bringing up the phlegm. Denies any nausea or vomiting Does have some difficulty swallowing on and off. Denies any night sweats, no unintentional weight loss Denies any unusual headache. Does have chronic blurry vision Please make note patient was frustrated and upset. He did curse around as he initially thought that he was going to have bronchoscopy and I told him that it is better to do liver biopsy In the end of the encounter he did apologize. Social history: Greater than 67-fqwx-nlkj smoking history, currently smoking up to a pack a day. 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 Allergies Allergy/AdvReac Type Severity Reaction Status Date / Time No Known Allergies Allergy Verified 05/14/24 10:40 Home Medications Medication Instructions Recorded Confirmed Type betamethasone dipropionate 0.05 % 1 applic topical BID PRN skin 08/03/21 07/12/24 Rx topical cream irritation #45 grams carvedilol 25 mg tablet 25 mg PO BID #60 tabs 08/03/21 07/12/24 Rx nifedipine 60 mg tablet,extended 60 mg PO BID #30 tabs 08/03/21 07/12/24 Rx release triamcinolone acetonide 0.1 % 1 applic topical BID PRN Dry 08/03/21 07/12/24 Rx topical cream scaling areas #15 grams fexofenadine 180 mg tablet 180 mg PO QAM PRN Allergies 07/04/23 07/12/24 History finasteride 5 mg tablet 5 mg PO DAILY #90 tabs 08/13/23 07/12/24 Rx rosuvastatin 40 mg tablet 40 mg PO QPM #90 tabs 11/04/23 07/12/24 Rx empagliflozin 25 mg tablet 25 mg PO QAM #90 tabs 03/31/24 07/12/24 Rx sildenafil (pulm.hypertension) 20 40 mg (2 x 20 mg) PO 3XWK #90 tabs 04/01/24 07/12/24 Rx mg tablet (Revatio) tamsulosin 0.4 mg capsule 0.8 mg (2 x 0.4 mg) PO QPM #180 04/01/24 07/12/24 Rx caps lisinopril 40 mg tablet 40 mg PO QAM #90 tabs 06/19/24 07/12/24 Rx fluticasone 55 mcg-salmeterol 14 1 inh inhalation BID 07/12/24 07/12/24 History mcg/actuation breath activated powder lansoprazole 30 mg capsule,delayed 30 mg PO DAILY PRN heart burn 07/12/24 07/12/24 History release meloxicam 15 mg tablet 15 mg PO DAILY PRN Pain 07/12/24 07/12/24 History Patient History Medical History Full thickness rotator cuff tear History of COVID-19 2020, mild symptoms Surgical History History of arthroscopy of right shoulder 18 years ago History of colonoscopy Hx of LASIK bilateral Family History Son Kidney disease Social History Smoking Status: Current every day smoker Tobacco Type: Cigarettes Age Started Using Tobacco: 19; packs per day: 1.5; Cigarettes Per Day: 1.5 packs per day/50 years; Second Hand Exposure: Yes (childhood); Do You Dip or Chew Tobacco: No; Hx Alcohol Use: Yes Alcohol type: hard liquor Alcohol Intake Frequency: 2-4 x/Month Hx Substance Use: No Preferred Language: [place] Collections Technician Required: No Beliefs That Will Affect Care: None marital status: marital status details: but still living together Current Living Situation: Spouse current occupational status: retired How many Children do You have: 2 Feels Safe at Home: Yes Childhood Exposure to Second-Hand Smoke: Yes Diet: regular caffeine: Yes Dental Care, Regularly: Yes Physical Activity Frequency: Other Physical Activity Frequency Comment: Outside work Seatbelt Use: sometimes Sunscreen Use: Yes Assistive Devices: None Review of Systems 2 Review of Systems: All systems reviewed & are unremarkable except as noted in HPI & below Physical Exam 2 Physical Exam: Constitutional: No acute distress HEENT: EOMI, PERRLA Respiratory system: Decreased air entry bilaterally, no wheeze, mild crackles bilateral lower lobes, positive rhonchi CVS: S1-S2 positive, no murmurs or gallops Abdomen: Soft, nontender, nondistended, positive bowel sounds x4 Extremities: +2 pulses bilaterally radialis/ dorsalis pedis, no cyanosis, no edema Neuro: Awake alert oriented x3 Psych: Normal mood and affect G/U: No Shultz Skin: no rashes, warm and dry Lymphatic: no cervical or axillary lymphadenopathy Results & Data Results & Data Vital Signs (Past 12 Hours) Vital Signs Temp Pulse Pulse Resp BP BP Pulse Ox 07/12/24 14:36 99 H 18 93 07/12/24 14:30 92 H 16 129/81 94 07/12/24 14:30 129/81 07/12/24 14:12 94 H 21 94 07/12/24 14:00 129/69 07/12/24 14:00 129/69 07/12/24 14:00 129/69 07/12/24 14:00 82 20 93 07/12/24 13:30 85 19 93 07/12/24 13:30 123/76 07/12/24 13:03 88 07/12/24 13:00 127/71 07/12/24 12:54 88 24 95 07/12/24 12:50 85 07/12/24 12:48 86 17 94 07/12/24 12:00 137/80 07/12/24 11:36 81 18 93 07/12/24 11:30 82 14 94 07/12/24 11:30 133/67 07/12/24 10:45 95 07/12/24 10:29 36.5 C 87 20 115/67 94 O2 Del Method 07/12/24 14:36 07/12/24 14:30 Room Air 07/12/24 14:30 07/12/24 14:12 07/12/24 14:00 07/12/24 14:00 07/12/24 14:00 07/12/24 14:00 07/12/24 13:30 07/12/24 13:30 07/12/24 13:03 07/12/24 13:00 07/12/24 12:54 07/12/24 12:50 07/12/24 12:48 07/12/24 12:00 07/12/24 11:36 07/12/24 11:30 07/12/24 11:30 07/12/24 10:45 Room Air 07/12/24 10:29 Room Air Laboratory Results 07/12/24 11:05 07/12/24 11:05 PG Care Time/CCT Total # of Minutes Spent Total Time Spent with Patient: Total time spent is greater than 50% in coordination of care (as documented) at patient's floor/unit and/or counseling patient: Coding Level of Care Code 78899 INT INP/OBS CARE 3/75MIN Diagnoses Tobacco dependence due to cigarettes F17.210 COPD with emphysema J43.9 Chronic bronchitis J42 Lung mass R91.8 LAD (lymphadenopathy), mediastinal R59.0 Metastasis to liver C78.7
[2024-07-12] MEDS: GADOBUTROL 65ML VIAL IV ONE (17:46)
[2024-07-12] MEDS ORDERED: TRIAMCINOLONE ACET 0.1% CR 15 GM TUBE TOP PRN (18:07)
[2024-07-12] MEDS ORDERED: POLYETHYLENE (MIRALAX) 17 GM PACK PO PRN (18:07)
[2024-07-12] MEDS ORDERED: MAGNESIUM HYDROXIDE SUSP 30 ML UDC PO PRN (18:07)
[2024-07-12] MEDS ORDERED: FEXOFENADINE HCL 180 MG TAB PO PRN (18:07)
[2024-07-12] MEDS ORDERED: PANTOprazole 40 MG TAB PO PRN (18:25)
[2024-07-12] MEDS: NICOTINE 21 MG/24 HR TDSY TD ONE (18:31)
[2024-07-12] MEDS ORDERED: BETAMETHASONE DIP AUG (DIPROLENE) 0.05% CR 15 GM TUBE EXT PRN (18:32)
[2024-07-12] MEDS: NICOTINE 21 MG/24 HR TDSY TD SCH (18:32)
--- NOTE | 2024-07-12 18:41 | Magnetic Resonance Report ---
MRI of the brain performed with and without IV contrast History: Lung cancer Comparison: None Technique: Multiplanar T1 weighted, axial T2/FLAIR, and susceptibility images were obtained without intravenous contrast. Following intravenous gadolinium based contrast administration, axial T2 weighted, diffusion, and T1-weighted images were obtained. 7.3 cc Gadavist Findings: No evidence for intracranial mass lesion, mass-effect, midline shift, or abnormal extra-axial fluid collection. Postcontrast images demonstrate no abnormal intracranial enhancement. The orbits are grossly unremarkable. Marked cerebral atrophy. Mild high signal intensity change in the white matter on T2/FLAIR, consistent with chronic small vessel ischemic disease. No abnormally reduced diffusion or evidence for acute infarct. Normal intravascular flow voids. Impression: No evidence for metastatic disease of the head Electronically signed by Pipo Celeste 07-12-2024 6:41 PM
[2024-07-12] MEDS: TAMSULOSIN HCL 0.4 MG CAP PO SCH (21:34)
[2024-07-12] MEDS: ROSUVASTATIN CALCIUM 20 MG TAB PO SCH (21:34)
[2024-07-12] MEDS: NIFEdipine EXTENDED REL 30 MG TABCR PO SCH (21:34)
[2024-07-12] MEDS: carvediloL 25 MG TAB PO SCH (22:27)
[2024-07-12] MEDS: ALUMINUM/MAGNESIUM SUSP 30 ML UDC PO PRN (23:32)
[2024-07-12] MEDS: FLUTICASONE/VILANTEROL 100/25MCG 14 PUFFS/INHALER INH SCH (23:36)
[2024-07-13] MEDS: oxyCODONE HCL IR 5 MG TAB (IMMEDIATE RELEASE) PO PRN (03:38)
[2024-07-13 04:40] LABS: Adenovirus F 40/41 PCR Not Detected (NotDetected); Astrovirus PCR Not Detected (NotDetected); Campylobacter PCR Not Detected (NotDetected); Cryptosporidium PCR Not Detected (NotDetected); Cyclospora cayetanensis PCR Not Detected (NotDetected); Entamoeba histolytica PCR Not Detected (NotDetected); Enteroaggregative E.coli(EAEC) Not Detected (NotDetected); Enteropathogenic E.coli (EPEC) Not Detected (NotDetected); Enterotoxigenic E.coli (ETEC) Not Detected (NotDetected); Giardia lamblia PCR Not Detected (NotDetected); Norovirus GI/GII PCR Not Detected (NotDetected); Plesiomonas shigelloides PCR Not Detected (NotDetected); Rotavirus A PCR Not Detected (NotDetected); Salmonella PCR Not Detected (NotDetected); Sapovirus PCR Not Detected (NotDetected); Shiga-like Toxin E.coli (STEC) Not Detected (NotDetected); Shigella/Enteroinvasive E.coli Not Detected (NotDetected); Vibrio cholerae PCR Not Detected (NotDetected); Vibrio species PCR Not Detected (NotDetected); Yersinia enterocolitica PCR Not Detected (NotDetected)
--- NOTE | 2024-07-13 06:52 | Hospitalist Progress Note ---
Date of Service July 13, 2024 Assessment & Plan (1) Lesion of lung: (2) Transaminitis: (3) Acute hypokalemia: (4) Diabetes: (5) Chronic Kidney Disease: (6) Tobacco dependence due to cigarettes: (7) BPH (benign prostatic hyperplasia): (8) Hypertension: (9) Pulmonary hypertension: Plan # Lung lesion Likely dx of CHATO malignancy with metastasis to the left adrenal gland and liver( Histopath awaiting). Pulm: Recs IR guided Liver biopsy( done today). Hold meloxicam. Avoid NSAIDs to avoid bleeding risk. Avoid Tylenol due to elevated LFTs Low-dose oxycodone as needed for pain. MRI brain: No e/o Mets. #Transaminitis AST/ALT/ALP: 115/126/356(stable from yesterday) Labs from 05/14/2024 within normal target range CT AP : multiple hepatic implants consistent with metastatic disease. Liver Biopsy Obtained today #Acute hypokalemia: Corrected : Potassium is 3.4 #Chronic Kidney Disease: Creatinine: 2.03 today, elevated from yesterday. NPO vs Contrast yesterday--- will trend AM labs. 500 ml bolus Isotonic given today. Follows with Dr. Dunn from [facility] [place] in the [facility] #Tobacco dependence due to cigarettes: Greater than 92-[id number]-lvpf smoking history Currently smokes 1-1/2 packs/day Not interested in smoking cessation at this time Under Nicotine patch at admission #COPD with emphysema with chronic bronchitis Respi on board: appreciate recs; On Advair HFA 55 at home Respiratory BioFire negative for everything on 07/12/2024 Recommend Spiriva or Incruse to be added to patient's regimen on discharge Other chronic #Diabetes: Tsm-htownlt-xukximxcz/ Recent HA1c 6.3% #Chronic Kidney Disease: #BPH (benign prostatic hyperplasia): Continue home meds, Notcturia noted. #Hypertension: BP currently controlled at 116/66/ Continue home med. #Pulmonary hypertension: Sildenafil continue. Plan Will hold anticoagulation at this time pending pulmonary workup SCDs as well as knee-high teds have been ordered Consider chemical prophylaxis after biopsies are completed Discharge home with family Admission and Anticipated Discharge Date Admission Date: July 12, 2024 Supervising Physician Co-Signing Physician Notes Attending Physician Supervision Note: I independently interviewed and examined the patient and verified the funes history and physical, reviewed labs and image studies and agree with findings and care plan noted above. Underwent liver biopsy today. Comfortable. Abdominal fullness symptoms persistent. Denies any change in his appetite or ora l intake. vitals noted nad heent nc at mmm breathing unlabored no accessory muscles good effort skin no rashes no pallor or icterus neuro no focal deficits Abdomen soft, distended. New Lung mass with likely metastatic lesions in liver, adrenals, adrenals, small ascites - s/p Liver biopsy. MRI brain neg. Monitor overnight. If renal function stays stable - home to have outpt PET, pain control, outpt oncology and ongoing PCP f/u. AVE - No change in PO intake. Likely due to hepato-renal syndrome d/t extensive liver mets and possible cirrhosis (per CT) or ATN from tumor load. -monitor renal fx - recheck in am. Likely to decompensate quickly if renal function worsens. Will have palliative care team see him before he leaves. otherwise as above Subjective Mr. Arcos seems overall frustrated but calmed this AM, when I saw him. He expressed frustration that he is not able to shower, he is not aware of IV fluid management ongoing. Explained him about this and reassured he can shower after biopsy procedure today. Otherwise he seems stable. Review of Systems Review of Systems: As per HPI Physical Exam Physical Exam: Constitutional: Well appearing, No acute distress, PILCCOD: Negative HEENT: Atraumatic, Normocephalic, No conjunctival injection CVS: S1 S2 no murmur, Regular Rhythm, no LE edema Respiratory: BL decreased air entry with PVBS. Diffuse rhonchi and some wheeze but No increased work of breathing GI: Soft, Nondistended, Nontender, Normal Bowel sounds + MSK: No gross deformities noted Skin: Warm, Dry, No rashes Neuro: Alert, Oriented to TPP, No Focal deficit Psych: Mood and Affect congruent, Cooperative on exam Results & Data Results & Data Vital Signs (Past 12 Hours) Vital Signs Temp Pulse Pulse Resp BP BP Pulse Ox 07/13/24 03:30 36.7 C 77 16 123/58 L 94 07/12/24 23:45 36.5 C 91 H 16 140/69 91 07/12/24 21:27 94 H 20 137/75 94 01/05/25 19:09 89 22 140/68 O2 Del Method 07/13/24 03:30 Room Air 07/12/24 23:45 Room Air 07/12/24 21:27 07/12/24 19:09 Resident Activity Tracking Resident Involvement: Resident Care Provided Care Provided: Adult Hospital Medicine
[2024-07-13 07:07] LABS: Basophils # (auto) 0.01 K/uL (0.00-0.20); Basophils % (auto) 0.1 %; Eosinophils # (auto) 0.01 K/uL (0.00-0.50); Eosinophils % (auto) 0.1 %; Hematocrit (blood only) 34.3 % (42.0-52.0); Hemoglobin 11.2 g/dl (14.0-18.0); Immature Granulocytes # (auto) 0.12 K/uL (0.01-0.20); Immature Granulocytes % (auto) 0.9 %; Lymphocytes % (auto) 6.3 %; Mean Corpuscular Hemoglobin 29.4 pg (25.0-34.0); Mean Corpuscular Hgb Conc 32.7 g/dL (32.0-36.0); Mean Platelet Volume 11.9 fL (9.4-12.4); Monocytes # (auto) 0.98 K/uL (0.11-0.59); Monocytes % (auto) 7.7 %; Neutrophils # (auto) 10.81 K/uL (1.40-6.50); Neutrophils % (auto) 84.9 %; Platelet Count 145 K/uL (130-400); RDW Coefficient of Variation 15.1 % (11.5-14.5); RDW Standard Deviation 49.6 fL (36.4-46.3); Red Blood Count 3.81 M/uL (4.70-6.10); White Blood Count 12.73 K/ul (4.8-10.8)
[2024-07-13 07:26] LABS: Albumin Globulin Ratio 1.4 (0.9-2); Albumin Level 3.1 gm/dl (3.4-5.0); BUN Creatinine Ratio 19.7 (10-20); Bilirubin,Total 1.4 mg/dl (0.2-1.0); Calcium 9.3 mg/dl (8.6-10.3); Creatinine Clr Calc Pharmacy 32.8 ml/min; Globulin 2.2 gm/dl (2.5-4.0); Magnesium 2.1 mg/dl (1.7-2.4); Potassium 3.4 mmol/L (3.5-5.1); Total Protein 5.3 gm/dl (6.0-8.3)
[2024-07-13] MEDS: SILDENAFIL CITRATE 20 MG TABLET PO SCH (07:35)
[2024-07-13] MEDS: lisinopril 40 MG TAB PO SCH (07:36)
[2024-07-13] MEDS: FINASTERIDE 5 MG TAB PO SCH (07:36)
[2024-07-13] MEDS: POTASSIUM CHLORIDE / WTR 10 MEQ/100 ML PLCT IV SCH (08:39)
[2024-07-13] MEDS: PLASMA-LYTE A 1,000 ML IV ONE (08:49)
[2024-07-13] MEDS ORDERED: FLUTICASONE/VILANTEROL 100/25MCG 14 PUFFS/INHALER INH SCH (09:00)
[2024-07-13] MEDS ORDERED: Nursing to Pharmacy Communication SCH (11:00)
[2024-07-13] MEDS: GELATIN SPONGE 12-7MM ONE (11:58)
[2024-07-13] MEDS: fentaNYL citrate PF 100 MCG/2 ML VIAL ONE (11:58)
--- NOTE | 2024-07-13 14:16 | Ultrasound Report ---
ULTRASOUND GUIDED LIVER LESION CORE BIOPSY INDICATION: Right lobe liver lesion; lung mass PROCEDURE: Procedure and risks were explained. Informed consent was obtained. A final timeout was com pleted. The abdomen was prepped and draped in sterile fashion. 1% lidocaine was utilized for skin ane sthesia. Utilizing ultrasound guidance, a 17-gauge coaxial needle was advanced into the right lobe liver lesio n. Ultrasound images were obtained. An 18-gauge core biopsy needle was advanced, and 2 cores were obt ained and given to the pathologist for review. The coaxial needle was removed after injecting a Gelfo am slurry and Band-Aid applied. The patient tolerated the procedure well. Vital signs will be monitor ed postprocedure. IMPRESSION: Right lobe liver lesion core biopsy as above. Performed, dictated, and signed by Dominik Kessler PA-C; to be co-signed by Dr. Julito Nguyen. Electronically signed by: Julito Nguyen M.D. 07/13/2024 2:21 PM
--- NOTE | 2024-07-14 06:19 | Electrocardiogram Report ---
Test Reason : Blood Pressure : */* mmHG Vent. Rate : 86 BPM Atrial Rate : 86 BPM P-R Int : 126 ms QRS Dur : 166 ms QT Int : 428 ms P-R-T Axes : 79 81 -5 degrees QTcB Int : 512 ms Sinus rhythm with Premature atrial complexes with Aberrant conduction Possible Left atrial enlargement Right bundle branch block T wave abnormality, consider inferior ischemia Abnormal ECG When compared with ECG of 12-Jul-2023 09:30, Aberrant conduction is now Present Right bundle branch block has replaced Incomplete right bundle branch block Confirmed by Bobby Hernadez ([id number]) on 07/14/2024 6:18:55 AM Referred By: REFERRED SELF Confirmed By: Bobby Hernadez
--- NOTE | 2024-07-14 06:37 | Electrocardiogram Report ---
Test Reason : Blood Pressure : */* mmHG Vent. Rate : 91 BPM Atrial Rate : 91 BPM P-R Int : 124 ms QRS Dur : 166 ms QT Int : 430 ms P-R-T Axes : 62 73 -7 degrees QTcB Int : 528 ms Poor data quality, interpretation may be adversely affected Sinus rhythm with occasional Premature ventricular complexes and Premature atrial complexes Possible Left atrial enlargement Right bundle branch block Abnormal ECG When compared with ECG of 12-Jul-2024 11:02, (unconfirmed) Premature ventricular complexes are now Present Confirmed by Bobby Hernadez ([id number]) on 07/14/2024 6:37:03 AM Referred By: REFERRED SELF Confirmed By: Bobby Hernadez
[2024-07-14 06:52] LABS: Basophils # (auto) 0.02 K/uL (0.00-0.20); Basophils % (auto) 0.1 %; Hematocrit (blood only) 35.8 % (42.0-52.0); Hemoglobin 11.8 g/dl (14.0-18.0); Immature Granulocytes # (auto) 0.11 K/uL (0.01-0.20); Immature Granulocytes % (auto) 0.7 %; Mean Corpuscular Hemoglobin 29.9 pg (25.0-34.0); Mean Corpuscular Volume 90.6 fL (80.0-100.0); Mean Platelet Volume 11.8 fL (9.4-12.4); Monocytes # (auto) 1.07 K/uL (0.11-0.59); Monocytes % (auto) 6.7 %; Neutrophils # (auto) 13.96 K/uL (1.40-6.50); Neutrophils % (auto) 87.5 %; Platelet Count 151 K/uL (130-400); RDW Coefficient of Variation 15.3 % (11.5-14.5); RDW Standard Deviation 50.4 fL (36.4-46.3); Red Blood Count 3.95 M/uL (4.70-6.10); White Blood Count 15.96 K/ul (4.8-10.8)
[2024-07-14 07:13] LABS: Albumin Globulin Ratio 1.4 (0.9-2); Albumin Level 3.3 gm/dl (3.4-5.0); BUN Creatinine Ratio 19.8 (10-20); Bilirubin,Total 1.3 mg/dl (0.2-1.0); Calcium 9.4 mg/dl (8.6-10.3); Creatinine Clr Calc Pharmacy 26.4 ml/min; Globulin 2.3 gm/dl (2.5-4.0); Potassium 3.8 mmol/L (3.5-5.1); Total Protein 5.6 gm/dl (6.0-8.3)
[2024-07-14] MEDS: ALBUT/IPRATROP 3MG/0.5MG NEB 3 ML VIAL NEB STA (08:35)
--- NOTE | 2024-07-14 09:33 | XRay Report ---
XR chest 2V PA/lateral CLINICAL HISTORY: Desat post procedure R/O collapse, some rales too TECHNIQUE: 2 views of the chest were obtained. Comparison: Comparison is made to chest and abdomen radiographs 07/12/2024 FINDINGS: No lines and tubes are seen. Calcified aortic knob is seen. There is an airspace opacity in the anter ior aspect of the left lower lung with bronchial wall thickening. No evidence of pleural effusion or pneumothorax. IMPRESSION: Airspace opacity in the anterior aspect of the left lower lung which may represent atelectasis, altho ugh aspiration/pneumonia cannot be excluded. Bronchial wall thickening suggestive of infectious/infla mmatory airways disease. ACT 112: Negative or not required by law. Electronically signed by: Jaziel Molina M.D. 07/14/2024 9:30 AM
[2024-07-14] MEDS: EMPAGLIFLOZIN 25 MG PO SCH (09:41)
[2024-07-14] MEDS: UMECLIDINIUM BROMIDE 62.5MCG/BLISTER 7 PUFFS/INHALER INH SCH (09:41)
--- NOTE | 2024-07-14 09:47 | Hospitalist Progress Note ---
Date of Service July 14, 2024 Assessment & Plan (1) Small cell lung cancer: (2) Transaminitis: (3) Acute hypokalemia: (4) Diabetes: (5) Chronic Kidney Disease: (6) Tobacco dependence due to cigarettes: (7) BPH (benign prostatic hyperplasia): (8) Hypertension: (9) Pulmonary hypertension: (10) Pneumonia: Plan # Lung Cancer: HPE: Small cell lung ca mets to liver. Discussion with pulm and oncology: Recs Chemotherapy due to advanced disease. Hold meloxicam. Avoid NSAIDs to avoid bleeding risk. Avoid Tylenol due to elevated LFTs Low-dose oxycodone as needed for pain. #Transaminitis AST/ALT/ALP: Elevated but stable from yesterday. CT AP : multiple hepatic implants consistent with metastatic disease. Biopsy confirmed SCC mets from Lung. #Possible Tumor lysis: Rapidly growing/ spreading tumor per history and investigation. Uric acid: 11.9, Creatinine: 2.8( increasing despite Fluids and oral intake) Allopurinol started per protocol: Allopurinol 600 PO x 1 day 300 BID for 2-3 days 300 OD #Chronic Kidney Disease: Creatinine: 2.5- 2.8 today, elevated from yesterday. NPO vs Contrast vs Tumor lysis syndrome vs worsening intrinsic Kidney function Uric acid: 11.9, Creatinine: 2.8( increasing despite Fluids and oral intake) Nephrology consult ordered today. Follows with Dr. Dunn from [facility] [place] in the [facility] #PNA: - Newly developed PNE on LLL. - Ceftriaxone and Azithro started. - Sputum C/S sent. #Tobacco dependence due to cigarettes: Greater than 84-hzft-hzzr smoking history Currently smokes 1-1/2 packs/day Not interested in smoking cessation at this time Under Nicotine patch at admission #COPD with emphysema with chronic bronchitis Respi on board: appreciate recs On Advair HFA 55 at home BioFire negative(07/12) Added Spiriva. Other chronic #Diabetes: Gjp-frhtwcd-unexdzctc/ Recent HA1c 6.3% #Chronic Kidney Disease: #BPH (benign prostatic hyperplasia): Continue home meds, Notcturia noted. #Hypertension: BP currently controlled at 116/66/ Continue home med. #Pulmonary hypertension: Sildenafil continue. Plan Discharge home with family once ready DVT: Mechanical SCDs. Admission and Anticipated Discharge Date Admission Date: July 12, 2024 Supervising Physician Co-Signing Physician Notes Attending Physician Supervision Note: I independently interviewed and examined the patient and verified the funes history and physical, reviewed labs and image studies and agree with findings and care plan noted above. Reported feeling short of breath and cough. No fever. Abdominal fullness symptoms persistent. vitals noted nad heent nc at mmm breathing unlabored no accessory muscles good effort skin no rashes no pallor or icterus neuro no focal deficits. left lower crackles present. AVE - No change in PO intake. ?hepato-renal syndrome d/t extensive liver mets and possible cirrhosis (per CT)/ ATN from tumor load. Worsening - -Uric acid elevated. Electrolytes normal. -consult nephro. -adding allopurinol. New Lung mass with likely metastatic lesions in liver, adrenals, adrenals, small ascites - s/p Liver biopsy - prelim report - small cell ca. MRI brain neg. -consult oncology. -planning to start chemo in 48hrs after abx. Carboplatin/Etoposide with G- CSF -Will need Mediport placement- consult general surgery in am -TLS labs -Outpatient PET -Pul input appreciated Questionable Left lower lung pneumonia -Resp biofire negative. -sputum culture ordered. -Augmentin for concern of aspiration. COPD - No PFT. continue inhalers. Hypoxia - continue O2 supplementation otherwise as above Subjective This AM Mr. Arcos still seems little frustrated. His most concerning issue today is chest congestion and not able to cough. He said he slept well with Oxygen though. Have been feeling more tired in past couple days. I tried to answer his all queries about his management. Talked to his family on second round. Her daughter RN herself was concerned. She expressed her father wants treatment started ALLEN and whole family supprt that. She was concerned about his creatinine level and I explained our workup plan. Review of Systems Review of Systems: As per HPI Physical Exam Physical Exam: Constitutional: Well appearing, No acute distress, PILCCOD: Negative HEENT: Atraumatic, Normocephalic, No conjunctival injection CVS: S1 S2 no murmur, Regular Rhythm, no LE edema Respiratory: BL decreased air entry with PVBS. Occasional rales on LLL. No increased work of breathing GI: Soft, Nondistended, Nontender, Normal Bowel sounds + MSK: No gross deformities noted Skin: Warm, Dry, No rashes Neuro: Alert, Oriented to TPP, No Focal deficit Psych: Mood and Affect congruent, Cooperative on exam Results & Data Results & Data Vital Signs (Past 12 Hours) Vital Signs Temp Pulse Pulse Resp BP Pulse Ox O2 Del Method 07/14/24 08:40 90 18 90 Room Air 07/14/24 07:33 36.5 C 83 18 119/60 91 Nasal Cannula 07/14/24 06:35 36.8 C 93 H 18 122/62 91 Nasal Cannula O2 Flow Rate 07/14/24 08:40 07/14/24 07:33 3 07/14/24 06:35 3 Resident Activity Tracking Resident Involvement: Resident Care Provided Care Provided: Adult Hospital Medicine
--- NOTE | 2024-07-14 11:40 | XCELERA ---
[id number] \\[email or web address]\[id number]}[id number]
[2024-07-14] MEDS: PLASMA-LYTE A 1,000 ML IV SCH (13:14)
[2024-07-14] MEDS: cefTRIAXone SODIUM 2,000 MG/50 ML BAG IV SCH (13:17)
[2024-07-14] MEDS: AZITHROMYCIN 250 MG TAB PO ONE (13:17)
[2024-07-14] MEDS: ALBUT/IPRATROP 3MG/0.5MG NEB 3 ML VIAL NEB PRN (13:27)
[2024-07-14] MEDS: BENZONATATE 100 MG CAPSULE PO SCH (13:30)
--- NOTE | 2024-07-14 14:48 | Pulmonology Progress Note ---
Date of Service July 14, 2024 Assessment & Plan (1) Small cell lung cancer: (2) Metastasis to liver: (3) COPD with emphysema: Plan Impression: 69-year-old male with extensive history of tobacco abuse presenting with shortness of breath found to have hilar mass with extensive metastatic involvement. Liver biopsy consistent with small cell lung cancer. Per patient and family plans are to initiate of systemic chemotherapy in the next 24 hours. Recommendations: 1. Small cell lung cancer: Extensive stage: Management per medical oncology. Patient asked extensively about prognosis. Advised him that without treatment prognosis would be measured in months. With treatment, median survival is anywhere between 8 and 20 months. Patient is at risk for complications associated with chemotherapy given his renal dysfunction. 2. COPD: The patient is not bronchospastic currently. No PFTs available. Agree with Flovent/Anoro. 3. Hypoxemia: Agree with supplemental oxygen titrated to keep saturations at or above 90%. 4. Importance of smoking cessation was recommended to the patient. He expressed understanding. 5. Questionable pneumonia: The patient does have an elevated white blood cell count which is nonspecific. He is coughing and chest x-ray does demonstrate a patchy infiltrate present within the left lower lobe. Agree with antibiotics. Aspiration would be a concern so anaerobic coverage would be appropriate. Augmentin should be adequate. Total of 30 minutes was spent at bedside. Answered all questions to the patient's and family satisfaction. Would be happy to see this patient back if needed but at this point in time his care can be dictated by his primary admitting service and medical oncology Admission and Anticipated Discharge Date Admission Date: July 12, 2024 Subjective Patient seen and examined. EMR reviewed. Reviewed slides with pathology and discussed with family at bedside. Patient reports he is doing okay. He is intermittently on and off oxygen. He coughed up a small amount of blood-tinged phlegm earlier today. Chest x-ray revealed some opacification within the left lower lobe and the patient has been started on antibiotics Review of Systems 2 Review of Systems: All systems reviewed & are unremarkable except as noted in Subjective Physical Exam 2 Constitutional: WD/WN, vitals as above Neck: trachea midline, no thyromegaly Respiratory: no respiratory distress, no labored breathing, no cough and not tachypneic Auscultation: + rhonchi; no wheezes Cardiovascular: RRR, no murmur, no edema Gastrointestinal (Abdomen): normal bowel sounds, soft, nontender, no hepatosplenomegaly Musculoskeletal: Extremities: extremities normal to inspection Skin: no rashes, warm and dry Neurologic: Nonfocal exam Lymphatic: no cervical lymphadenopathy Results & Data Results & Data Vital Signs (Past 12 Hours) Vital Signs Temp Pulse Pulse Pulse Resp BP Pulse Ox 07/14/24 13:50 36.5 C 77 16 102/51 L 92 07/14/24 13:27 85 18 94 07/14/24 08:40 90 18 90 07/14/24 07:33 36.5 C 83 18 119/60 91 07/14/24 06:35 36.8 C 93 H 18 122/62 91 O2 Del Method O2 Flow Rate 07/14/24 13:50 Nasal Cannula 3 07/14/24 13:27 Nasal Cannula 3 07/14/24 08:40 Room Air 07/14/24 07:33 Nasal Cannula 3 07/14/24 06:35 Nasal Cannula 3 Laboratory Results 07/14/24 05:49 Liver biopsy consistent with small cell carcinoma Diagnostic Findings No new imaging PG Care Time/CCT Total # of Minutes Spent Total Time Spent with Patient: Total time spent is greater than 50% in coordination of care (as documented) at patient's floor/unit and/or counseling patient: Coding Level of Care Code 73811 SUB INP/OBS CARE 2/35MIN Diagnoses Small cell lung cancer C34.90 Metastasis to liver C78.7 COPD with emphysema J43.9
[2024-07-14 15:00] LABS: Calcium 9.2 mg/dl (8.6-10.3); Creatinine Clr Calc Pharmacy 23.5 ml/min; Phosphorus 3.5 mg/dl (2.5-4.9); Potassium 3.7 mmol/L (3.5-5.1); Uric Acid 11.9 mg/dl (2.6-7.2)
[2024-07-14] MEDS: AMOXICILLIN/CLAVULANATE 500 MG TAB PO SCH (16:22)
[2024-07-14] MEDS: PHENYLEPHRINE 0.25% SUPP 1 EA PR PRN (16:22)
--- NOTE | 2024-07-14 17:20 | Oncology Consultation ---
Date of Consultation July 14, 2024 Assessment & Plan (1) Small cell lung cancer: (2) Pneumonia: Plan Gentleman with extensive stage small cell lung cancer. Was diagnosed with pneumonia today and is currently on IV antibiotics. Ideally, would like to start him on treatment ALLEN however would recommend at least 48 hours of antibiotics before starting treatment. Plan to treat with carboplatin day 1, etoposide day 1-3, plus atezolizumab day 1 IV q. 21 days x 4 cycles followed by maintenance atezolizumab if he has good response to treatment. Would ideally need to get PET/CT outpatient prior to starting treatment. However, since patient would likely received first cycle of treatment inpatient, we will plan to obtain PET/CT upon discharge from hospital.Patient and his family had multiple questions which indicated were answered to their satisfaction -Continue treatment for pneumonia. Will not start chemotherapy treatment until he has received at least 48 hours of antibiotics -Plan for inpatient chemotherapy with carboplatin/etoposide with G-CSF support after at least 48 hours of antibiotics -Consider Mediport placement. This can be obtained either inpatient/outpatient -Obtain TLS labs in the setting of worsening renal function -Plan to obtain outpatient PET/CT Thank you for this consult. Oncology will continue following patient while he is in the hospital. Please feel free to call if you have any further questions. History of Present Illness Reason for Consultation: Metastatic small cell lung cancer Attending Physician: Priscila Juárez MD History of Present Illness 69-year-old gentleman who presented to the ER with abdominal pain and elevated LFTs seen on outpatient labs. CT abdomen and pelvis on 07/12/2024 revealed enlarged liver with innumerable hepatic lesions consistent with metastatic disease, possible underlying cirrhosis, 2.6 cm left adrenal nodule suspicious for metastasis and possible L3 vertebral body metastasis. CT chest also on 07/12/2024 revealed left upper lobe masslike opacity and left hilar mediastinal lymphadenopathy suggestive of central lung malignancy such as small cell carcinoma, associated left upper lobe airspace opacity with interlobular septal thickening, extensive hepatic metastasis, probable left adrenal metastasis and numerous small lucencies within right scapular tip suspicious for skeletal metastasis. He endorses about [id number] history of smoking. Complains of early satiety, abdominal pain, bloating and weight loss Brain MRI obtained on 07/12/2024 was negative for metastasis. IR guided liver biopsy obtained on 07/13/2024 was consistent with metastatic small cell lung cancer. Chest x-ray obtained today revealed airspace opacity in anterior aspect of left lower lung which may represent atelectasis, although aspiration/pneumonia cannot be excluded, bronchial wall thickening suggestive of infectious/inflammatory airway. Labs obtained today showed leukocytosis with white count of 15.96. Due to concern for pneumonia, he was started on antibiotics today. Allergies Allergy/AdvReac Type Severity Reaction Status Date / Time No Known Allergies Allergy Verified 05/14/24 10:40 Home Medications Medication Instructions Recorded Confirmed Type betamethasone dipropionate 0.05 % 1 applic topical BID PRN skin 08/03/21 07/12/24 Rx topical cream irritation #45 grams carvedilol 25 mg tablet 25 mg PO BID #60 tabs 08/03/21 07/12/24 Rx nifedipine 60 mg tablet,extended 60 mg PO BID #30 tabs 08/03/21 07/12/24 Rx release triamcinolone acetonide 0.1 % 1 applic topical BID PRN Dry 08/03/21 07/12/24 Rx topical cream scaling areas #15 grams fexofenadine 180 mg tablet 180 mg PO QAM PRN Allergies 07/04/23 07/12/24 History finasteride 5 mg tablet 5 mg PO DAILY #90 tabs 08/13/23 07/12/24 Rx rosuvastatin 40 mg tablet 40 mg PO QPM #90 tabs 11/04/23 07/12/24 Rx empagliflozin 25 mg tablet 25 mg PO QAM #90 tabs 03/31/24 07/12/24 Rx sildenafil (pulm.hypertension) 20 40 mg (2 x 20 mg) PO 3XWK #90 tabs 04/01/24 07/12/24 Rx mg tablet (Revatio) tamsulosin 0.4 mg capsule 0.8 mg (2 x 0.4 mg) PO QPM #180 04/01/24 07/12/24 Rx caps lisinopril 40 mg tablet 40 mg PO QAM #90 tabs 06/19/24 07/12/24 Rx fluticasone 55 mcg-salmeterol 14 1 inh inhalation BID 07/12/24 07/12/24 History mcg/actuation breath activated powder lansoprazole 30 mg capsule,delayed 30 mg PO DAILY PRN heart burn 07/12/24 07/12/24 History release meloxicam 15 mg tablet 15 mg PO DAILY PRN Pain 07/12/24 07/12/24 History Patient History Medical History Full thickness rotator cuff tear History of COVID-19 2020, mild symptoms Surgical History History of arthroscopy of right shoulder 18 years ago History of colonoscopy Hx of LASIK bilateral Family History Son Kidney disease Social History Smoking Status: Current every day smoker Tobacco Type: Cigarettes Age Started Using Tobacco: 19; packs per day: 1.5; Cigarettes Per Day: 30; Second Hand Exposure: Yes (childhood); Do You Dip or Chew Tobacco: No; Hx Alcohol Use: No Hx Substance Use: No Preferred Language: Sudanese Communication Ability: Effective Loader Required: No Beliefs That Will Affect Care: None marital status: marital status details: but still living together Current Living Situation: Spouse current occupational status: retired How many Children do You have: 2 Feels Safe at Home: Yes Childhood Exposure to Second-Hand Smoke: Yes Diet: regular caffeine: Yes Dental Care, Regularly: Yes Physical Activity Frequency: Other Physical Activity Frequency Comment: Outside work Seatbelt Use: sometimes Sunscreen Use: Yes Assistive Devices: None Results & Data Vital Signs (Past 12 Hours) Vital Signs Temp Pulse Pulse Pulse Resp BP Pulse Ox 07/14/24 13:50 36.5 C 77 16 102/51 L 92 07/14/24 13:27 85 18 94 07/14/24 09:35 07/14/24 08:40 90 18 90 07/14/24 07:33 36.5 C 83 18 119/60 91 07/14/24 06:35 36.8 C 93 H 18 122/62 91 O2 Del Method O2 Flow Rate 07/14/24 13:50 Nasal Cannula 3 07/14/24 13:27 Nasal Cannula 3 07/14/24 09:35 Nasal Cannula 3 07/14/24 08:40 Room Air 07/14/24 07:33 Nasal Cannula 3 07/14/24 06:35 Nasal Cannula 3
[2024-07-14] MEDS: SODIUM CHLORIDE 0.9% 1,000 ML IV SCH (17:32)
--- NOTE | 2024-07-14 18:14 | Nephrology Consultation ---
Date of Consultation July 14, 2024 Assessment & Plan (1) Acute kidney injury: (2) Tumor lysis syndrome: (3) Pneumonia: (4) Small cell lung cancer: (5) Metastasis to liver: (6) Diabetes: (7) Hypertension: Plan 69-year-old man with stage IIIa CKD baseline creatinine around 1.6 mg/dl with history of hypertension, diabetes and extensive history of smoking, presented to the hospital with abdominal pain and abnormal LFT. Imaging showed left lung mass with extensive skeletal and liver metastasis. Liver biopsy on 07/13/2024 consistent with metastatic small cell lung cancer. Admission lab was notable for AVE, creatinine was 1.8 with rapid worsening of kidney function over 2 days and creatinine up to 2.8 this afternoon associated with hyper uricemia but normal serum calcium, potassium and phosphorus. AVE with tumor lysis syndrome and possible urate nephropathy. --Start on rasburicase --Continue on IV normal saline --hold Jardiance, consider insulin SS --No acute indication for dialysis at this time, continue close monitoring of kidney function, electrolyte, intake and output Thank you for allowing me to participate in your patient's care. It was a pleasure to see Emmett. History of Present Illness Reason for Consultation: AVE, TLS Attending Physician: Priscila Juárez MD History of Present Illness Mr. Emmett Arcos is a 69-year-old gentleman with past medical history significant for stage IIIa CKD, hypertension, diabetes, extensive history of smoking admitted with metastatic lung cancer and pneumonia. Nephrology consult requested for management of AVE with possible tumor lysis syndrome. EMR records were reviewed in detail during patient's visit. Anayeli was at bedside and PAYAM was on telephone. Emmett presented to the ER on 07/12/24 with abdominal pain and elevated LFTs seen on outpatient labs. Has been noticing some weight loss recently associated with poor appetite and abdominal bloating. Initial x-ray of the abdomen was concerning for left lung nodule and had CT chest, abdomen and pelvis without contrast on 07/12/2024 revealed left upper lobe mass and left hilar mediastinal lymphadenopathy, associated left upper lobe airspace opacity with interlobular septal thickening, extensive hepatic metastasis, probable left adrenal metastasis and numerous small lucencies within right scapular tip suspicious for skeletal metastasis. MRI brain was negative for metastasis. IR guided liver biopsy on 07/13/2024 was consistent with metastatic small cell lung cancer. Evalu ated by oncology and plan to start on chemotherapy after being on antibiotic for 48 hours for pneumonia. Lab on admission showed creatinine 1.8 mg/dl with baseline creatinine around 1.6 mg/dl. Kidney function rapidly worsen over last 2 days and last lab this afternoon showed creatinine of 2.8 mg/dl. Electrolyte including potassium, calcium and phosphorus normal but uric acid was elevated at 11.5. Prior urinalysis was notable for moderate degree proteinuria with history of diabetes. Renal imaging showed bilateral otherwise normal size kidney with simple cyst. Current active smoker and history of more than 60 years of heavy smoking. Lab this afternoon was notable for rapidly worsening kidney function, creatinine 2.8, uric acid 11.5 suggestive of tumor lysis syndrome. Blood pressure relatively low. Has decent urine output. Allergies Allergy/AdvReac Type Severity Reaction Status Date / Time No Known Allergies Allergy Verified 05/14/24 10:40 Home Medications Medication Instructions Recorded Confirmed Type betamethasone dipropionate 0.05 % 1 applic topical BID PRN skin 08/03/21 07/12/24 Rx topical cream irritation #45 grams carvedilol 25 mg tablet 25 mg PO BID #60 tabs 08/03/21 07/12/24 Rx nifedipine 60 mg tablet,extended 60 mg PO BID #30 tabs 08/03/21 07/12/24 Rx release triamcinolone acetonide 0.1 % 1 applic topical BID PRN Dry 08/03/21 07/12/24 Rx topical cream scaling areas #15 grams fexofenadine 180 mg tablet 180 mg PO QAM PRN Allergies 07/04/23 07/12/24 History finasteride 5 mg tablet 5 mg PO DAILY #90 tabs 08/13/23 07/12/24 Rx rosuvastatin 40 mg tablet 40 mg PO QPM #90 tabs 11/04/23 07/12/24 Rx empagliflozin 25 mg tablet 25 mg PO QAM #90 tabs 03/31/24 07/12/24 Rx sildenafil (pulm.hypertension) 20 40 mg (2 x 20 mg) PO 3XWK #90 tabs 04/01/24 07/12/24 Rx mg tablet (Revatio) tamsulosin 0.4 mg capsule 0.8 mg (2 x 0.4 mg) PO QPM #180 04/01/24 07/12/24 Rx caps lisinopril 40 mg tablet 40 mg PO QAM #90 tabs 06/19/24 07/12/24 Rx fluticasone 55 mcg-salmeterol 14 1 inh inhalation BID 07/12/24 07/12/24 History mcg/actuation breath activated powder lansoprazole 30 mg capsule,delayed 30 mg PO DAILY PRN heart burn 07/12/24 07/12/24 History release meloxicam 15 mg tablet 15 mg PO DAILY PRN Pain 07/12/24 07/12/24 History Patient History Medical History Full thickness rotator cuff tear History of COVID-19 2019, mild symptoms Surgical History History of arthroscopy of right shoulder 18 years ago History of colonoscopy Hx of LASIK bilateral Family History Son Kidney disease Social History Smoking Status: Current every day smoker Tobacco Type: Cigarettes Age Started Using Tobacco: 19; packs per day: 1.5; Cigarettes Per Day: 30; Second Hand Exposure: Yes (childhood); Do You Dip or Chew Tobacco: No; Hx Alcohol Use: No Hx Substance Use: No Preferred Language: Djiboutian Communication Ability: Effective Grain Commodity Manager Required: No Beliefs That Will Affect Care: None marital status: marital status details: but still living together Current Living Situation: Spouse current occupational status: retired How many Children do You have: 2 Feels Safe at Home: Yes Childhood Exposure to Second-Hand Smoke: Yes Diet: regular caffeine: Yes Dental Care, Regularly: Yes Physical Activity Frequency: Other Physical Activity Frequency Comment: Outside work Seatbelt Use: sometimes Sunscreen Use: Yes Assistive Devices: None Review of Systems Review of Systems: All systems reviewed & are unremarkable except as noted in HPI & below Physical Exam Constitutional: WD/WN, vitals as above + ill appearing; no acute distress Eyes: + anicteric sclerae Neck: normal visual inspection Cardiovascular: Rate/Rhythm: regular rate and regular rhythm Heart Sounds: normal S1 and normal S2 Extremities: + edema Gastrointestinal (Abdomen): Inspection/Auscultation: + abdomen distended Percussion/Palpation: + hepatomegaly and + abdomen firm; abdomen nontender Musculoskeletal: Extremities: extremities normal to inspection Skin: no rashes, warm and dry Neurologic: no focal motor deficits Psychiatric: Orientation: alert and oriented x 3 Affect: euthymic affect Results & Data Vital Signs (Past 12 Hours) Vital Signs Temp Pulse Pulse Pulse Resp BP Pulse Ox 07/14/24 13:50 36.5 C 77 16 102/51 L 92 07/14/24 13:27 85 18 94 07/14/24 09:35 07/14/24 08:40 90 18 90 07/14/24 07:33 36.5 C 83 18 119/60 91 07/14/24 06:35 36.8 C 93 H 18 122/62 91 O2 Del Method O2 Flow Rate 07/14/24 13:50 Nasal Cannula 3 07/14/24 13:27 Nasal Cannula 3 07/14/24 09:35 Nasal Cannula 3 07/14/24 08:40 Room Air 07/14/24 07:33 Nasal Cannula 3 07/14/24 06:35 Nasal Cannula 3 PG Care Time/CCT Total # of Minutes Spent Total Time Spent with Patient: Total time spent is greater than 50% in coordination of care (as documented) at patient's floor/unit and/or counseling patient: Coding Level of Care Code 11622 INT INP/OBS CARE 3/75MIN Diagnoses Acute kidney injury N17.9 Tumor lysis syndrome E88.3 Pneumonia J18.9 Small cell lung cancer C34.90 Metastasis to liver C78.7 Diabetes E11.9 Hypertension I10
[2024-07-14] MEDS: allopurinoL 300 MG TAB PO ONE ×2 (18:42→19:39)
[2024-07-14] MEDS: RASBURICASE IV ONE (19:29)
[2024-07-14] MEDS: SODIUM CHLORIDE 0.9% IV ONE (19:29)
[2024-07-14] MEDS: guaiFENesin 600 MG TABCR PO SCH (19:39)
[2024-07-14 23:51] LABS: BUN Creatinine Ratio 18.4 (10-20); Calcium 8.7 mg/dl (8.6-10.3); Creatinine Clr Calc Pharmacy 21.1 ml/min; Potassium 3.8 mmol/L (3.5-5.1)
[2024-07-15 00:08] LABS: Magnesium 2.2 mg/dl (1.7-2.4); Phosphorus 4.1 mg/dl (2.5-4.9)
--- NOTE | 2024-07-15 07:30 | Hospitalist Progress Note ---
Date of Service July 15, 2024 Assessment & Plan (1) Small cell lung cancer: (2) Transaminitis: (3) Acute hypokalemia: (4) Diabetes: (5) Chronic Kidney Disease: (6) Tobacco dependence due to cigarettes: (7) BPH (benign prostatic hyperplasia): (8) Hypertension: (9) Pulmonary hypertension: (10) Pneumonia: Plan # Lung Cancer: HPE: Small cell lung ca mets to liver. Discussion with pulm and oncology: Recs Chemotherapy due to advanced disease. Hold meloxicam. Avoid NSAIDs to avoid bleeding risk. Avoid Tylenol due to elevated LFTs Low-dose oxycodone as needed for pain. # Tumor lysis Syndrome: Rapidly growing/ spreading tumor per history and investigation. Uric acid: 11.9 Creatinine: Rising trend; 3.41---3.14 LDH: Increasing trend too (1349- 1414) #Transaminitis AST/ALT/ALP: Elevated but stable CT AP : multiple hepatic implants consistent with metastatic disease. Biopsy confirmed SCC mets from Lung. #AVE with baseline Chronic Kidney Disease: D/T tumor lysis . Creatinine: 3.24 today, elevated from yesterday. Uric acid: downtrending today(11.9--- 7.0, Creatinine: 2.8( increasing despite Fluids and oral intake) Nephrology consult ordered today. Follows with Dr. Dunn from [facility] in the [facility] #PNA: - Newly developed PNE on LLL. - Ceftriaxone and Azithro started. - Sputum C/S sent. #Tobacco dependence due to cigarettes: Greater than 60-lhfe-unbb smoking history Currently smokes 1-1/2 packs/day Not interested in smoking cessation at this time Under Nicotine patch at admission #COPD with emphysema with chronic bronchitis Respi on board: appreciate recs On Advair HFA 55 at home BioFire negative(07/12) Added Spiriva. Other chronic #Diabetes: [id number]-bhnodackb/ Recent HA1c 6.3% #Chronic Kidney Disease: #BPH (benign prostatic hyperplasia): Continue home meds, Notcturia noted. #Hypertension: BP currently controlled at 116/66/ Continue home med. #Pulmonary hypertension: Sildenafil continue. Plan Discharge home with family once ready DVT: Mechanical SCDs. Admission and Anticipated Discharge Date Admission Date: July 12, 2024 Supervising Physician Co-Signing Physician Notes Attending Physician Supervision Note: I independently interviewed and examined the patient and verified the funes history and physical, reviewed labs and image studies and agree with findings and care plan noted above. Breathing better. Cough+ Had moments of not wanting anything done. Family around - supportive. vitals noted nad heent nc at mmm breathing unlabored no accessory muscles good effort skin no rashes no pallor or icterus neuro no focal deficits. Bilateral rhonchi + AVE with TLS and urate nephropathy - normal electrolytes. CKD 3a Worsening - -s/p Rasburicase 07/14 -NSS -BP running low - see below. Small cell ca lung with metastatic lesions in liver, adrenals, adrenals, small ascites - s/p Liver biopsy. MRI brain neg. -oncology. -planning to start chemo in 48hrs after abx. Carboplatin/Etoposide with G- CSF -Will need Mediport placement -Outpatient PET -Pul input appreciated Questionable Left lower lung pneumonia -Resp biofire negative and sputum culture negative. -Augmentin for concern of aspiration. HTN- now running low. Hold nifedipine, lisinopril. continue coreg. COPD - No PFT. continue inhalers. Hypoxia - continue O2 supplementation otherwise as above Subjective Today Mr. Arcos was sitting on his bed in comfortable position. He feels better than yesterday, coughing still but feels less congested. No SOB. Chest pain. Feels tired, fatigues more than usual. Answered his and his 's question today. Review of Systems Review of Systems: As per HPI Physical Exam Physical Exam: Constitutional: Well appearing, No acute distress. HEENT: Atraumatic, Normocephalic, No conjunctival injection CVS: S1 S2 no murmur, Regular Rhythm, no LE edema Respiratory: BL decreased air entry with PVBS. Occasional rales on LLL. No increased work of breathing GI: Soft, Nondistended, Nontender, Normal Bowel sounds + MSK: No gross deformities noted Skin: Warm, Dry, No rashes Neuro: Alert, Oriented to TPP, No Focal deficit Psych: Mood and Affect congruent, Cooperative on exam Results & Data Results & Data Vital Signs (Past 12 Hours) Vital Signs Temp Pulse Resp BP Pulse Ox O2 Del Method O2 Flow Rate 07/14/24 19:48 36.6 C 79 16 110/62 92 Nasal Cannula 2 Resident Activity Tracking Resident Involvement: Resident Care Provided Care Provided: Adult [facility] Medicine
[2024-07-15 07:46] LABS: BUN Creatinine Ratio 19.6 (10-20); Calcium 8.6 mg/dl (8.6-10.3); Creatinine Clr Calc Pharmacy 19.5 ml/min; Magnesium 2.2 mg/dl (1.7-2.4); Potassium 3.8 mmol/L (3.5-5.1)
[2024-07-15] MEDS: allopurinoL 300 MG TAB PO SCH (08:00)
[2024-07-15 08:28] LABS: Basophils # (auto) 0.02 K/uL (0.00-0.20); Basophils % (auto) 0.1 %; Hematocrit (blood only) 32.4 % (42.0-52.0); Hemoglobin 10.7 g/dl (14.0-18.0); Immature Granulocytes # (auto) 0.07 K/uL (0.01-0.20); Immature Granulocytes % (auto) 0.5 %; Lymphocytes # (auto) 0.73 K/uL (1.20-3.40); Lymphocytes % (auto) 5.3 %; Mean Corpuscular Hemoglobin 30.3 pg (25.0-34.0); Mean Corpuscular Volume 91.8 fL (80.0-100.0); Mean Platelet Volume 12.5 fL (9.4-12.4); Monocytes # (auto) 0.79 K/uL (0.11-0.59); Monocytes % (auto) 5.7 %; Neutrophils % (auto) 88.4 %; Platelet Count 146 K/uL (130-400); RDW Coefficient of Variation 15.5 % (11.5-14.5); RDW Standard Deviation 51.4 fL (36.4-46.3); Red Blood Count 3.53 M/uL (4.70-6.10); White Blood Count 13.81 K/ul (4.8-10.8)
[2024-07-15] MEDS ORDERED: AZITHROMYCIN 250 MG TAB PO SCH (09:00)
--- NOTE | 2024-07-15 09:49 | Nephrology Progress Note ---
Date of Service July 15, 2024 Assessment & Plan (1) Acute kidney injury: (2) Tumor lysis syndrome: (3) Pneumonia: (4) Small cell lung cancer: (5) Metastasis to liver: (6) Diabetes: (7) Hypertension: Plan 69-year-old man with stage IIIa CKD baseline creatinine around 1.6 mg/dl with history of hypertension, diabetes and extensive history of smoking, presented to the hospital with abdominal pain and abnormal LFT. Imaging showed left lung mass with extensive skeletal and liver metastasis. Liver biopsy on 07/13/2024 consistent with metastatic small cell lung cancer. Admission lab was notable for AVE, creatinine was 1.8 with rapid worsening of kidney function over 2 days and creatinine up to 2.8 this afternoon associated with hyperuricemia but normal serum calcium, potassium and phosphorus. AVE with tumor lysis syndrome and possible urate nephropathy. Received rasburicase on 07/14/2024. Progressive worsening of kidney function noted with creatinine up to 3.4 this morning but potassium 3.8, serum calcium normal and phosphorus mildly elevated at 5.0. Uric acid improved to 7 but LDH elevated. Volume status slightly improved and reports decent urine output. Blood pressure relatively low. --Hold Norvasc as blood pressure has been low --Continue on IV normal saline --No acute indication for dialysis at this time, continue close monitoring of kidney function, electrolyte, intake and output -- Patient and family had a lot of question and quite frustrated with the fact that there is delay in starting on chemotherapy, answered all the questions and explained the reasoning why chemotherapy is being delayed with his underlying possible pneumonia and rapid progressive worsening of kidney function. Admission and Anticipated Discharge Date Admission Date: July 12, 2024 Veronica Christine was seen and evaluated with and daughter at bedside. He reports overall feeling slightly better, was able to sleep at night although feels tired. Appetite decent. Blood pressure has been variable but mostly low. Urine output unmeasured but he reports decent urine output. Kidney function worsened further, creatinine up to 3.4 associated with mild hyperphosphatemia but potassium and serum calcium normal. Uric acid dropped down to 7 from 11.9 yesterday with rasburicase and IV fluid. Review of Systems Review of Systems: All systems reviewed & are unremarkable except as noted in Subjective Physical Exam Constitutional: WD/WN, vitals as above + ill appearing; no acute distress Eyes: + anicteric sclerae Neck: normal visual inspection Cardiovascular: Rate/Rhythm: regular rate and regular rhythm Heart Sounds: normal S1 and normal S2 Extremities: + edema Gastrointestinal (Abdomen): Inspection/Auscultation: + abdomen distended Percussion/Palpation: + hepatomegaly and + abdomen firm; abdomen nontender Musculoskeletal: Extremities: extremities normal to inspection Skin: no rashes, warm and dry Neurologic: no focal motor deficits Psychiatric: Orientation: alert and oriented x 3 Affect: euthymic affect Results & Data Vital Signs (Past 12 Hours) Vital Signs Temp Pulse Resp BP Pulse Ox O2 Del Method 07/15/24 07:36 36.3 C L 83 16 93/50 L 92 Room Air PG Care Time/CCT Total # of Minutes Spent Total Time Spent with Patient: Total time spent is greater than 50% in coordination of care (as documented) at patient's floor/unit and/or counseling patient: Coding Level of Care Code 76430 SUB INP/OBS CARE 3/50MIN Diagnoses Acute kidney injury N17.9 Tumor lysis syndrome E88.3 Pneumonia J18.9 Small cell lung cancer C34.90 Metastasis to liver C78.7 Diabetes E11.9 Hypertension I10
[2024-07-15 10:46] LABS: Appearance Urine Cloudy (Clear); Bacteria Urine Automated None Seen (None Seen); Bilirubin Urine Negative (Negative); Blood Urine 1+ (Negative); Color Urine Yellow; Glucose Urine UA 2+ (Negative); Granular Casts Urine Present /lpf (None Prsent); Ketones Urine Negative (Negative); Leukocyte Esterase Urine Negative (Negative); Nitrite Urine Negative (Negative); Protein Urine 3+ (Negative); RBC Urine Automated 0-2 /hpf (0-2); Specific Gravity Urine 1.013 (1.000-1.030); Urobilinogen Urine Negative (Negative); WBC Urine Automated 0-5 /hpf (0-5)
--- NOTE | 2024-07-15 13:22 | Hematology/Oncology Prog Note ---
Date of Service July 15, 2024 Assessment & Plan (1) Small cell lung cancer: (2) Pneumonia: (3) Acute kidney injury: (4) Tumor lysis syndrome: Plan -WBC improving with antibiotics. Plan to start chemotherapy tomorrow with carboplatin day 1, etoposide day 1-3 with G-CSF support. Will renally dose etoposide for current creatinine clearance. Informed consent obtained from patient today and chemotherapy orders given to pharmacy. -Has TLS in the setting of aggressive small cell lung cancer as demonstrated by LDH of greater than 1000. He is s/p rasburicase.Repeat uric acid level was 7. Unclear if it was checked on ice. If it was not, recommend rechecking uric acid level on ice to prevent falsely low level. If uric acid level still elevated, he may require retreatment with rasburicase Admission and Anticipated Discharge Date Admission Date: July 12, 2024 Subjective WBC improving with antibiotics. Received Rasburicase yesterday for TLS Results & Data Vital Signs (Past 12 Hours) Vital Signs Temp Pulse Pulse Resp BP Pulse Ox O2 Del Method 07/15/24 12:51 73 16 90 Nasal Cannula 07/15/24 07:36 36.3 C L 83 16 93/50 L 92 Room Air 07/15/24 07:30 Room Air O2 Flow Rate 07/15/24 12:51 2 07/15/24 07:36 07/15/24 07:30
[2024-07-15 15:28] LABS: Creatinine Clr Calc Pharmacy 16.6 ml/min; Magnesium 2.2 mg/dl (1.7-2.4); Phosphorus 4.6 mg/dl (2.5-4.9); Potassium 3.5 mmol/L (3.5-5.1)
[2024-07-15 23:47] LABS: BUN Creatinine Ratio 17.8 (10-20); Calcium 8.3 mg/dl (8.6-10.3); Creatinine Clr Calc Pharmacy 15.8 ml/min; Magnesium 2.2 mg/dl (1.7-2.4); Phosphorus 5.2 mg/dl (2.5-4.9); Potassium 3.8 mmol/L (3.5-5.1)
[2024-07-16 06:10] LABS: Basophils # (auto) 0.02 K/uL (0.00-0.20); Basophils % (auto) 0.1 %; Hematocrit (blood only) 33.6 % (42.0-52.0); Hemoglobin 10.9 g/dl (14.0-18.0); Immature Granulocytes # (auto) 0.16 K/uL (0.01-0.20); Immature Granulocytes % (auto) 1.2 %; Lymphocytes # (auto) 0.64 K/uL (1.20-3.40); Lymphocytes % (auto) 4.7 %; Mean Corpuscular Hemoglobin 29.9 pg (25.0-34.0); Mean Corpuscular Hgb Conc 32.4 g/dL (32.0-36.0); Mean Corpuscular Volume 92.1 fL (80.0-100.0); Mean Platelet Volume 11.9 fL (9.4-12.4); Monocytes # (auto) 0.93 K/uL (0.11-0.59); Monocytes % (auto) 6.8 %; Neutrophils # (auto) 11.87 K/uL (1.40-6.50); Neutrophils % (auto) 87.2 %; Platelet Count 151 K/uL (130-400); RDW Coefficient of Variation 15.4 % (11.5-14.5); RDW Standard Deviation 52.2 fL (36.4-46.3); Red Blood Count 3.65 M/uL (4.70-6.10); White Blood Count 13.62 K/ul (4.8-10.8)
[2024-07-16 06:32] LABS: BUN Creatinine Ratio 16.4 (10-20); Calcium 8.5 mg/dl (8.6-10.3); Creatinine Clr Calc Pharmacy 13.9 ml/min; Phosphorus 6.3 mg/dl (2.5-4.9); Potassium 3.9 mmol/L (3.5-5.1)
[2024-07-16 06:41] LABS: Magnesium 2.2 mg/dl (1.7-2.4); Phosphorus 6.5 mg/dl (2.5-4.9)
[2024-07-16] MEDS: FOSAPREPITANT DIMEGLUMINE 150 MG in SODIUM CHLORIDE 0.9% 145 ML IV SCH (10:05)
--- NOTE | 2024-07-16 10:08 | Hospitalist Progress Note ---
Date of Service July 16, 2024 Assessment & Plan (1) Small cell lung cancer: (2) Transaminitis: (3) Acute hypokalemia: (4) Diabetes: (5) Chronic Kidney Disease: (6) Tobacco dependence due to cigarettes: (7) BPH (benign prostatic hyperplasia): (8) Hypertension: (9) Pulmonary hypertension: (10) Pneumonia: Plan # Lung Cancer: HPE: Small cell lung ca mets to liver. Discussion with pulm and oncology: Chemotherapy started today( 1st cycle). Hold meloxicam. Avoid NSAIDs to avoid bleeding risk. Avoid Tylenol due to elevated LFTs Low-dose oxycodone as needed for pain. # Tumor lysis Syndrome: Rapidly growing/ spreading tumor per history and investigation. Uric acid: Improving, recent 3.6 , no more need of Rasburicase given UA value. Creatinine: Rising trend; 3.41-->-3.14-->4.77 today LDH: Increasing trend too (1349- 1414--->1753) Possible need of HD-- will follow nephro #Transaminitis AST/ALT/ALP: Elevated but stable CT AP : multiple hepatic implants consistent with metastatic disease. Biopsy confirmed SCC mets from Lung. #AVE with baseline Chronic Kidney Disease: D/T tumor lysis syndrome. Creatinine: Up-trending, 4.77 today. Anticipate HD; will follow nephro. #PNA: - Newly developed PNE on LLL. - Augmentin D3. - Sputum C/S : Normal renny #Tobacco dependence due to cigarettes: Greater than [id number] smoking history Currently smokes 1-1/2 packs/day Not interested in smoking cessation at this time Under Nicotine patch at admission Other chronic #COPD: stable, continue inhaler. #Diabetes: [id number]/ Recent HA1c 6.3% #Chronic Kidney Disease: #BPH (benign prostatic hyperplasia): Continue home meds, Notcturia noted. #Hypertension: BP currently controlled at 116/66/ Continue home med. #Pulmonary hypertension: Sildenafil continue. Plan Chemo started today HD planned for tomorrow. DVT: Mechanical SCDs. Admission and Anticipated Discharge Date Admission Date: July 12, 2024 Supervising Physician Co-Signing Physician Notes Attending Physician Supervision Note: I independently interviewed and examined the patient and verified the funes history and physical, reviewed labs and image studies and agree with findings and care plan noted above. Walked in hallway this am. cough and breathing improving. vitals noted nad heent nc at mmm breathing unlabored no accessory muscles good effort skin no rashes no pallor or icterus neuro no focal deficits. CTA, leg edema bilateral. AVE with TLS and urate nephropathy CKD 3a Worsening - -s/p Rasburicase 07/14 -s/p IVF NSS -Planning HD - tunnel cath placement in am. Small cell ca lung with metastatic lesions in liver, adrenals, small ascites - s/p Liver biopsy. MRI brain neg. -oncology. -started chemo 07/16. Carboplatin/Etoposide with G-CSF -Will need Mediport placement -Outpatient PET -Pul input appreciated Questionable Left lower lung pneumonia -Resp biofire negative and sputum culture negative. -Finish course of Augmentin for concern of aspiration. HTN- Holding nifedipine, lisinopril. continue coreg. COPD - No PFT. continue inhalers. Hypoxia - resolved otherwise as above Subjective This AM Mr. Arcos expressed he's very anxious for he is starting chemotherapy today. Otherwise he seems doing better in terms of congestion and cough. Passing more sputum, likely because of mucinex ans explained him it useful. Counselled him my best, offered him medical management of anxiety, denied for now. Breathing well, no new SOB or CP. No leg pain, swelling, able to walk around. In facr his Oxygen is better when he walks around per his . Daughter Monalisa and at bedside, explained them ongoing management and anticipation of dialysis given trend of rising creatinine. Explained to son in phone as well. Offered them family meeting if everyone wants to sit and discuss together, they plan to be aorund 4 pm today. Review of Systems Review of Systems: As per HPI Physical Exam Physical Exam: Constitutional: Well appearing, No acute distress. HEENT: Atraumatic, Normocephalic, No conjunctival injection CVS: S1 S2 no murmur, Regular Rhythm, no LE edema Respiratory: BL decreased air entry with PVBS. BL rattles heard, Occasional rales on LLL. No increased work of breathing GI: Soft, Nondistended, Nontender, Normal Bowel sounds + MSK: No gross deformities noted Skin: Warm, Dry, No rashes Neuro: Alert, Oriented to TPP, No Focal deficit Psych: Mood and Affect congruent, Cooperative on exam Results & Data Results & Data Vital Signs (Past 12 Hours) Vital Signs Temp Pulse Resp BP Pulse Ox O2 Del Method O2 Flow Rate 07/16/24 07:15 36.3 C L 100 H 18 120/60 93 Room Air 07/16/24 06:10 101 H 18 95 Nasal Cannula 2 Resident Activity Tracking Resident Involvement: Resident Care Provided Care Provided: Adult Hospital Medicine
[2024-07-16] MEDS: PALONOSETRON 0.25 MG, dexAMETHasone 12 MG in DEXTROSE 5% 50 ML IV SCH (10:15)
--- NOTE | 2024-07-16 10:29 | Nephrology Progress Note ---
Date of Service July 16, 2024 Assessment & Plan (1) Acute kidney injury: (2) Tumor lysis syndrome: (3) Pneumonia: (4) Small cell lung cancer: (5) Metastasis to liver: (6) Diabetes: (7) Hypertension: Plan 69-year-old man with stage IIIa CKD baseline creatinine around 1.6 mg/dl with history of hypertension, diabetes and extensive history of smoking, presented to the hospital with abdominal pain and abnormal LFT. Imaging showed left lung mass with extensive skeletal and liver metastasis. Liver biopsy on 07/13/2024 consistent with metastatic small cell lung cancer. Admission lab was notable for AVE, creatinine was 1.8 with rapid worsening of kidney function over 2 days and creatinine up to 2.8 this afternoon associated with hyperuricemia but normal serum calcium, potassium and phosphorus. AVE with tumor lysis syndrome and possible urate nephropathy. Received rasburicase on 07/14/2024. Progressive worsening of kidney function noted with creatinine up to 4.8 this morning associated with multiple electrolyte abnormality including metabolic acidosis and hyperphosphatemia. Uric acid improved to 3.6 but LDH elevated. Volume status slightly improved and reports decent urine output. Blood pressure stable. --Discussed in detail with patient and family that with rapid worsening of kidney function and abnormal electrolyte, recommend to start hemodialysis will continue to monitor for renal recovery as he will be started on chemotherapy. After detailed discussion patient and family decided to go ahead with dialysis. Appreciate vascular surgery help with tunneled dialysis catheter, plan for tunneled dialysis catheter tomorrow morning and after that first dialysis treatment for 3 hours. Tomorrow chemotherapy can be given 2 hours after the completion of dialysis as per discussion with Dr. Werner. -- Dose medication for eGFR less than 10 --Left nephrology precaution for vascular access in future if kidney function does not recover Admission and Anticipated Discharge Date Admission Date: July 12, 2024 Veronica Christine was seen and evaluated with , son and daughter at bedside. He reports overall feeling about the same. Blood pressure stable. Urine output unmeasured but he reports decent urine output. Kidney function continues to worsen rapidly, creatinine up to 4.8 mg/dl associated with hyperphosphatemia and metabolic acidosis but potassium and serum calcium normal. Uric acid dropped down to 3.6 from 11.9 with rasburicase and IV fluid. Review of Systems Review of Systems: All systems reviewed & are unremarkable except as noted in Subjective Physical Exam Constitutional: WD/WN, vitals as above + ill appearing; no acute distress Eyes: + anicteric sclerae Cardiovascular: Rate/Rhythm: regular rate and regular rhythm Heart Sounds: normal S1 and normal S2 Extremities: + edema Gastrointestinal (Abdomen): Inspection/Auscultation: + abdomen distended Percussion/Palpation: + hepatomegaly; abdomen nontender Musculoskeletal: Extremities: extremities normal to inspection Skin: no rashes, warm and dry Neurologic: no focal motor deficits Psychiatric: Orientation: alert and oriented x 3 Affect: euthymic affect Results & Data Vital Signs (Past 12 Hours) Vital Signs Temp Pulse Resp BP Pulse Ox O2 Del Method O2 Flow Rate 07/16/24 07:15 36.3 C L 100 H 18 120/60 93 Room Air 07/16/24 06:10 101 H 18 95 Nasal Cannula 2 PG Care Time/CCT Total # of Minutes Spent Total Time Spent with Patient: Total time spent is greater than 50% in coordination of care (as documented) at patient's floor/unit and/or counseling patient: Coding Level of Care Code 04516 SUB INP/OBS CARE 3/50MIN Diagnoses Acute kidney injury N17.9 Tumor lysis syndrome E88.3 Pneumonia J18.9 Small cell lung cancer C34.90 Metastasis to liver C78.7 Diabetes E11.9 Hypertension I10
[2024-07-16] MEDS: SODIUM CHLORIDE 0.9% IV SCH ×2 (11:21→12:06)
[2024-07-16] MEDS: CARBOPLATIN IV SCH (11:21)
[2024-07-16] MEDS: ETOPOSIDE IV SCH (12:06)
--- NOTE | 2024-07-16 12:38 | Hematology/Oncology Prog Note ---
Date of Service July 16, 2024 Assessment & Plan (1) Small cell lung cancer: (2) Tumor lysis syndrome: (3) Acute kidney injury: Plan -Proceed with cycle 1, day 1 of treatment today with carboplatin plus etoposide. -He will receive day 2 of treatment tomorrow with single agent etoposide and day 3 of treatment on 07/18/2024. This to be followed by G-CSF 24 hours after day 3 of treatment. -Treatment has been renally dosed. -Okay to proceed with hemodialysis 2 hours after etoposide chemotherapy tomorrow Admission and Anticipated Discharge Date Admission Date: July 12, 2024 Subjective Scheduled to receive cycle 1, day 1 of treatment today. Renal function continues to worsen despite normal uric acid level. Plan for dialysis tomorrow. Results & Data Vital Signs (Past 12 Hours) Vital Signs Temp Pulse Resp BP Pulse Ox O2 Del Method O2 Flow Rate 07/16/24 12:11 36.6 C 91 H 18 112/66 94 Room Air 07/16/24 07:15 36.3 C L 100 H 18 120/60 93 Room Air 07/16/24 06:10 101 H 18 95 Nasal Cannula 2
[2024-07-16] MEDS: ONDANSETRON INJ 2 MG/ML 2 ML VIAL IV PRN (13:38)
[2024-07-16] MEDS: PROMETHAZINE HCL 25 MG TAB PO PRN (15:55)
[2024-07-16] MEDS: MELATONIN 3 MG TAB PO SCH (20:18)
[2024-07-17 06:05] LABS: Hematocrit (blood only) 32.2 % (42.0-52.0); Hemoglobin 10.3 g/dl (14.0-18.0); Mean Corpuscular Hemoglobin 29.8 pg (25.0-34.0); Mean Corpuscular Volume 93.1 fL (80.0-100.0); Mean Platelet Volume 11.8 fL (9.4-12.4); Platelet Count 144 K/uL (130-400); RDW Coefficient of Variation 15.9 % (11.5-14.5); RDW Standard Deviation 54.4 fL (36.4-46.3); Red Blood Count 3.46 M/uL (4.70-6.10); White Blood Count 11.21 K/ul (4.8-10.8)
[2024-07-17 06:30] LABS: Basophils # (auto) 0.01 K/uL (0.00-0.20); Basophils % (auto) 0.1 %; Immature Granulocytes # (auto) 0.14 K/uL (0.01-0.20); Immature Granulocytes % (auto) 1.2 %; Lymphocytes # (auto) 0.34 K/uL (1.20-3.40); Monocytes # (auto) 0.52 K/uL (0.11-0.59); Monocytes % (auto) 4.6 %; Neutrophils % (auto) 91.1 %
[2024-07-17 06:41] LABS: Albumin Level 2.8 gm/dl (3.4-5.0); BUN Creatinine Ratio 17.4 (10-20); Calcium 7.7 mg/dl (8.6-10.3); Creatinine Clr Calc Pharmacy 11.5 ml/min; Phosphorus 9.9 mg/dl (2.5-4.9); Potassium 4.6 mmol/L (3.5-5.1)
--- NOTE | 2024-07-17 07:08 | Hospitalist Progress Note ---
Date of Service July 17, 2024 Assessment & Plan (1) Small cell lung cancer: (2) Transaminitis: (3) Acute hypokalemia: (4) Diabetes: (5) Chronic Kidney Disease: (6) Tobacco dependence due to cigarettes: (7) BPH (benign prostatic hyperplasia): (8) Hypertension: (9) Pulmonary hypertension: (10) Pneumonia: Plan # Lung Cancer: HPE: Small cell lung ca mets to liver. Discussion with pulm and oncology: Chemotherapy started 07/17-> day 2/3 today Hold meloxicam. Avoid NSAIDs to avoid bleeding risk. Avoid Tylenol due to elevated LFTs Low-dose oxycodone as needed for pain. # Tumor lysis Syndrome: Rapidly growing/ spreading tumor per history and investigation. Uric acid: Improving, recent 3.6 , no need for further treatment with Rasburicase given UA value. Creatinine: Rising trend; 5.8 07/17 LDH: Increasing trend too (1349- 1414--->1753) S/p first session of HD 07/17 #Transaminitis AST/ALT/ALP: Elevated but stable CT AP : multiple hepatic implants consistent with metastatic disease. Biopsy confirmed SCC mets from Lung. #AVE with baseline Chronic Kidney Disease: D/T tumor lysis syndrome. Creatinine: Up-trending S/p 1 st session of HD on 07/17 #PNA: - Newly developed PNE on LLL. - Augmentin with coverage for aspiration PNA - Sputum C/S : Normal renny #Tobacco dependence due to cigarettes: Greater than 90-corp-[id number] smoking history Currently smokes 1-1/2 packs/day Not interested in smoking cessation at this time Under Nicotine patch at admission #HTN - Jardiance, lisinopril, nifedipine on hold due to hypotension/kidney function Other chronic #COPD: stable, continue inhaler. #Diabetes: [id number]/ Recent HA1c 6.3% #Chronic Kidney Disease: #BPH (benign prostatic hyperplasia): Continue home meds, Notcturia noted. #Pulmonary hypertension: Sildenafil continue. DVT: Mechanical SCDs. Admission and Anticipated Discharge Date Admission Date: July 12, 2024 Supervising Physician Co-Signing Physician Notes I personally examined the patient and verified funes points of history and exam, discussed case, and agree with decision making and plan documented by Dr. Ch. Evaluated patient at bedside alongside his family after his first dialysis session today. Patient was fatigued. He noted superficial pain where his PermCath was placed. Patient had first chemotherapy treatment for his aggressive small cell lung cancer yesterday. Patient required rasburicase for elevated uric acid level in the setting of tumor lysis and possible urate associated nephropathy. Continue Augmentin therapy for possible pneumonia. Subjective Pt seen at bedside afetr dialysis this afternoon. Some complaints for pain with swallowing after PermCath placement. Tolerated dialysis today ok. Family is present at bedside Review of Systems Review of Systems: As per above Physical Exam Physical Exam: Constitutional: well-appearing, no acute distress HEENT: NCAT, no conjunctival injection CV: extremities well-perfused, + LE edema Resp: minimal breath sounds B/L, no increased work of breathing GI: soft, nondistended, nontender MSK: no gross deformities appreciated Skin: warm, dry, no rash appreciated Neuro: alert, oriented, no focal neurologic deficit appreciated Results & Data Results & Data Vital Signs (Past 12 Hours) Vital Signs Temp Pulse Resp BP Pulse Ox O2 Del Method O2 Flow Rate 07/16/24 20:20 Nasal Cannula 2 07/16/24 19:24 36.3 C L 100 H 22 123/64 91 Room Air Resident Activity Tracking Resident Involvement: Resident Care Provided Care Provided: Adult Hospital Medicine
--- NOTE | 2024-07-17 08:45 | Consultation ---
Date of Consultation July 17, 2024 Assessment & Plan (1) Acute kidney injury: Pt with AVE and needs HD. Planning on permcath insertion this AM. Procedure, risks, benefits, and alternatives discussed with pt by myself at Dr Gallegos's request. Pt expresses understanding and agreement to proceed. Patient was seen, examined, and chart reviewed. Agree with exam and treatment plan of the Vascular PA. History of Present Illness Reason for Consultation: AVE Attending Physician: America Brito DO History of Present Illness 69 yo m with hx of SCC with liver mets, CKD, COPD, BPH, HTN, hyperlipidemia, DMII, arthritis, admitted with worsening renal fxn, seen in consultation today for permcath insertion. Pt admits fatigue, malaise. Denies FUNG, fever, chest pain, SOB, abd pain, N/V, rest pain, claudication, other complaints. Allergies Allergy/AdvReac Type Severity Reaction Status Date / Time No Known Allergies Allergy Verified 05/14/24 10:40 Home Medications Medication Instructions Recorded Confirmed Type betamethasone dipropionate 0.05 % 1 applic topical BID PRN skin 08/03/21 07/12/24 Rx topical cream irritation #45 grams carvedilol 25 mg tablet 25 mg PO BID #60 tabs 08/03/21 07/12/24 Rx nifedipine 60 mg tablet,extended 60 mg PO BID #30 tabs 08/03/21 07/12/24 Rx release triamcinolone acetonide 0.1 % 1 applic topical BID PRN Dry 08/03/21 07/12/24 Rx topical cream scaling areas #15 grams fexofenadine 180 mg tablet 180 mg PO QAM PRN Allergies 07/04/23 07/12/24 History finasteride 5 mg tablet 5 mg PO DAILY #90 tabs 08/13/23 07/12/24 Rx rosuvastatin 40 mg tablet 40 mg PO QPM #90 tabs 11/04/23 07/12/24 Rx empagliflozin 25 mg tablet 25 mg PO QAM #90 tabs 03/31/24 07/12/24 Rx sildenafil (pulm.hypertension) 20 40 mg (2 x 20 mg) PO 3XWK #90 tabs 04/01/24 07/12/24 Rx mg tablet (Revatio) tamsulosin 0.4 mg capsule 0.8 mg (2 x 0.4 mg) PO QPM #180 04/01/24 07/12/24 Rx caps lisinopril 40 mg tablet 40 mg PO QAM #90 tabs 06/19/24 07/12/24 Rx fluticasone 55 mcg-salmeterol 14 1 inh inhalation BID 07/12/24 07/12/24 History mcg/actuation breath activated powder lansoprazole 30 mg capsule,delayed 30 mg PO DAILY PRN heart burn 07/12/24 07/12/24 History release meloxicam 15 mg tablet 15 mg PO DAILY PRN Pain 07/12/24 07/12/24 History Patient History Medical History Full thickness rotator cuff tear History of COVID-2019, mild symptoms Surgical History History of arthroscopy of right shoulder 18 years ago History of colonoscopy Hx of LASIK bilateral Family History Son Kidney disease Social History Smoking Status: Current every day smoker Tobacco Type: Cigarettes Age Started Using Tobacco: 19; packs per day: 1.5; Cigarettes Per Day: 30; Second Hand Exposure: Yes (childhood); Do You Dip or Chew Tobacco: No; Hx Alcohol Use: No Hx Substance Use: No Preferred Language: Fijian Communication Ability: Effective [employer] Required: No Beliefs That Will Affect Care: Cultural marital status: marital status details: but still living together Current Living Situation: Spouse current occupational status: retired How many Children do You have: 2 Feels Safe at Home: Yes Childhood Exposure to Second-Hand Smoke: Yes Diet: regular caffeine: Yes Dental Care, Regularly: Yes Physical Activity Frequency: Other Physical Activity Frequency Comment: Outside work Seatbelt Use: sometimes Sunscreen Use: Yes Assistive Devices: None Review of Systems Review of Systems: All systems reviewed & are unremarkable except as noted in HPI & below Physical Exam Constitutional: WD/WN, vitals as above + ill appearing Neck: trachea midline Respiratory: normal respiratory effort, lungs clear to auscultation Auscultation: + diminished lung sounds Cardiovascular: Rate/Rhythm: regular rate and regular rhythm Vessels: posterior tibial pulses present, dorsalis pedis pulses present and radial pulses present; + abnormal peripheral pulses Extremities: normal capillary refill Gastrointestinal (Abdomen): Inspection/Auscultation: abdomen normal to inspection and normal bowel sounds Percussion/Palpation: abdomen soft; abdomen nontender Musculoskeletal: no cyanosis or clubbing, extremities motor strength 5/5 Skin: no rashes, warm and dry Neurologic: moves all extremities and awake; no focal motor deficits and not confused Psychiatric: A+Ox3, euthymic affect Results & Data Vital Signs (Past 12 Hours) Vital Signs Pulse Resp BP Pulse Ox O2 Del Method O2 Flow Rate 07/17/24 08:12 94 H 16 117/54 L 94 Nasal Cannula 2
--- NOTE | 2024-07-17 08:50 | Pre Anesthesia Assessment ---
Date of Service July 17, 2024 Pre Sedation Assessment Vital Signs Temp Pulse Pulse Pulse Resp BP Pulse Ox 07/17/24 08:12 94 H 16 117/54 L 94 07/16/24 20:20 07/16/24 19:24 36.3 C L 100 H 22 123/64 91 07/16/24 13:19 36.5 C 90 18 126/64 93 07/16/24 12:11 36.6 C 91 H 18 112/66 94 O2 Del Method O2 Flow Rate 07/17/24 08:12 Nasal Cannula 2 07/16/24 20:20 Nasal Cannula 2 07/16/24 19:24 Room Air 07/16/24 13:19 Room Air 07/16/24 12:11 Room Air Cardiovascular RRR, no murmur, no edema Respiratory normal respiratory effort, lungs clear to auscultation Pre-Sedation Airway Assessment Smoking Status: Current every day smoker Hx Sleep Apnea: No Short, Thick Neck: No Thyromental Distance: > or= 3.5 Finger Breadths Oral Cavity: + WNL Mallampati Class: III ASA: ASA3 NPO Status Date of Last Intake of Fluids: 07/16/24 Time of Last Intake of Fluids: 21:00 Date of Last Intake of Solid Food: 07/16/24 Time of Last Intake of Solid Foods: 17:00 Procedure Planning Contraindications for Sedation: none Current Medications Reviewed: Yes Notes The planned sedation has been discussed with the patient. Informed Consent was obtained. I have identified the patient, determined the appropriateness of sedation and have assessed the patient immediately prior to the procedure. All medicine(s) and interventions are by my order.
[2024-07-17] MEDS: ceFAZolin 2000MG 2,000 MG/15 ML SYR IV ONE (08:52)
[2024-07-17] MEDS: allopurinoL 300 MG TAB PO SCH (09:15)
[2024-07-17] MEDS: fentaNYL citrate PF 100 MCG/2 ML VIAL ONE (09:20)
[2024-07-17] MEDS: MIDAZOLAM HCL 1 MG/ML 2ML VIAL ONE (09:20)
[2024-07-17] MEDS: LIDOCAINE 1% LOCAL 20 ML VIAL ONE (09:24)
[2024-07-17] MEDS: HEPARIN SOD (PORCINE) 5,000 UNITS/ML VIAL ONE ×2 (09:34→09:35)
--- NOTE | 2024-07-17 09:38 | Operative Report ---
Post Operative Report Pre & Post Diagnosis Operation Date: 07/17/24 08:50 Pre-Op Diagnosis: Acute Kidney Injury Post-Op Diagnosis: Acute Kidney Injury I identified the patient and participated in the time-out.: Yes Procedure Operation Date: 07/17/24 08:50 Actual Procedures p Insertion Perm Catheter,Right Internal Jugular Approach,Ultrasound Localization of Right Internal Jugular Vein,Fluoroscopy for Positioning,Moderate Sedation [id number](Right) - Riki Gallegos MD Surgeon Riki Gallegos MD Acute Care Nurse none Estimated Blood Loss 3 Findings Consistent with Post-Op Diagnosis Specimens none Anesthesia Type RN Sedation Complications none Disposition Accompanied Patient To Recovery: No Disposition: Recovery Room Indications This is 69-year-old gentleman with acute kidney injury in need of dialysis. Pe rmCath was recommended. I have discussed the risks options and benefits of the procedure with the patient. The patient understands the risks options and benefits and agrees to the procedure. Description of Procedure Patient was taken to the angio suite and placed in the supine position. The right side of the neck and chest wall were prepped and draped in a sterile manner. The patient was identified and a timeout performed. Local anesthesia was then administered to the appropriate areas of the neck and chest wall. Ultrasound was then used to locate the right internal jugular vein. The vein compressed easily, had no filing defects, and was patent. The vein was then punctured under direct ultrasound imaging. A guidewire was then passed centrally under fluoroscopic imaging. A stab wound was then made in the anterior chest wall and a 19 cm permcath was passed from the stab wound on the chest wall to the puncture site on the neck. The puncture site was then dilated till the 14Fr peel away sheath was inserted. The permcath was then inserted through the sheath to a central position in the distal superior vena cava. The peel away sheath was then removed. The catheter was then sutured in place using nylon sutures. The puncture was then closed using a 4-0 Vicryl subcuticular suture. Dermabond was used for a dressing on the puncture site. Both ports aspirated and flushed easily and were then packed with heparin. A sterile dressing was applied to the catheter. The patient left the operation room in satisfactory condition and tolerated the procedure well. All needle and sponge counts were correct at the end of the procedure. I attest to the content of the Intraoperative Record and any orders documented therein. Any exceptions are noted below.
--- NOTE | 2024-07-17 09:40 | Post Anesthesia Assessment ---
Date of Service July 17, 2024 Post Sedation Assessment Vital Signs Temp Pulse Pulse Pulse Pulse Resp BP 07/17/24 09:38 89 16 103/44 L 07/17/24 09:35 88 19 106/51 L 07/17/24 09:30 88 22 98/51 L 07/17/24 09:25 91 H 21 120/61 07/17/24 09:20 94 H 18 131/67 07/17/24 09:08 93 H 30 H 127/67 07/17/24 08:12 94 H 16 117/54 L 07/17/24 07:30 07/16/24 20:20 07/16/24 19:24 36.3 C L 100 H 22 123/64 07/16/24 13:19 36.5 C 90 18 126/64 07/16/24 12:11 36.6 C 91 H 18 112/66 Pulse Ox O2 Del Method O2 Flow Rate 07/17/24 09:38 95 Oxymask 5 07/17/24 09:35 95 Oxymask 5 07/17/24 09:30 95 Oxymask 5 07/17/24 09:25 95 Oxymask 5 07/17/24 09:20 96 Oxymask 5 07/17/24 09:08 94 Oxymask 4 07/17/24 08:12 94 Nasal Cannula 2 07/17/24 07:30 Nasal Cannula 2 07/16/24 20:20 Nasal Cannula 2 07/16/24 19:24 91 Room Air 07/16/24 13:19 93 Room Air 07/16/24 12:11 94 Room Air Recovery Score Activity: Moves 4 extremities Respiration: Deep Breath/Cough Circulation: +/-20% PreAnes Value Consciousness: Fully Awake Oxygen Saturation: > 92% On Room Air Post Anesthesia Score: 10 Discharge Sedation Level of Care: Fast Track Phase II Post Sedation Plan On clinical assessment, the patient appears to have tolerated the sedation without complications. Patient is recovering as anticipated. Patient will continue to be monitored by nursing and may be discharged when sedation discharge criteria are met per below protocol. Upon Completions of procedure up to 15 minutes continue every 5 minute vital signs and the P.A.R. score; then discharge to a Phase I or Fast Track to Phase II per the following guidelines: * Discharge Patient to appropriate Phase II area if PAR is 8 or greater or return to pre- procedure baseline. The post - procedure orders will be as directed. * If PAR score is less than 8 or not return to pre-procedure baseline then patient will follow Phase I monitoring till PAR is reached for Phase II. The Phase I may be done in procedure room or may call to secure a Phase I area. * If naloxone or flumazenil are used for reversal, hold in Phase I for continued monitoring from when last reversal dose was given for a minimum of 60 minutes or longer pending the nurse and/or physician discretion of patient condition before discharge to Phase II. Please call the Sedation Physician to re-evaluate and complete post-note for discharge to Phase II area. Do NOT discharge from procedure sedation or Phase 1 until post- sedation evaluation note is complete by procedure /sedation MD Sedation Discharge Instructions to be given to the patient at discharge to home.
--- NOTE | 2024-07-17 10:09 | Nephrology Progress Note ---
Date of Service July 17, 2024 Assessment & Plan (1) Acute kidney injury: (2) Tumor lysis syndrome: (3) Pneumonia: (4) Small cell lung cancer: (5) Metastasis to liver: (6) Diabetes: (7) Hypertension: Plan 69-year-old man with stage IIIa CKD baseline creatinine around 1.6 mg/dl with history of hypertension, diabetes and extensive history of smoking, presented to the hospital with abdominal pain and abnormal LFT. Imaging showed left lung mass with extensive skeletal and liver metastasis. Liver biopsy on 07/13/2024 consistent with metastatic small cell lung cancer. Admission lab was notable for AVE, creatinine was 1.8 with rapid worsening of kidney function over 2 days and creatinine up to 2.8 this afternoon associated with hyperuricemia but normal serum calcium, potassium and phosphorus. AVE with tumor lysis syndrome and possible urate nephropathy. Received rasburicase on 07/14/2024. Progressive worsening of kidney function noted with creatinine up to 4.8 this morning associated with multiple electrolyte abnormality including metabolic acidosis and hyperphosphatemia. Uric acid improved to 3.6 but LDH elevated. Volume status slightly improved and reports decent urine output. Blood pressure stable. Progressive worsening of kidney function noted with multiple electrolyte abnormality. Had dialysis catheter placed this morning. --Tolerating first dialysis treatment, plan for 3 hours treatment with minimum UF as volume status acceptable and blood pressure relatively low, chemotherapy can be given after the completion of dialysis. -- Dose medication for eGFR less than 10 --Left nephrology precaution for vascular access in future if kidney function does not recover Admission and Anticipated Discharge Date Admission Date: July 12, 2024 Veronica Christine was seen and evaluated during hemodialysis treatment this morning. Just had dialysis catheter placed and started on dialysis. Reports overall feeling well and denies any symptoms. Received first chemotherapy yesterday, tolerated well. Blood pressure slightly low. Review of Systems Review of Systems: detail review of system was done and pertinent positives and negatives are mentioned above. Physical Exam Constitutional: WD/WN, vitals as above + ill appearing; no acute distress Eyes: + anicteric sclerae Respiratory: Auscultation: + diminished lung sounds Cardiovascular: Rate/Rhythm: regular rate and regular rhythm Heart Sounds: normal S1 and normal S2 Extremities: + edema Gastrointestinal (Abdomen): Inspection/Auscultation: + abdomen distended Percussion/Palpation: + hepatomegaly; abdomen nontender Musculoskeletal: Extremities: extremities normal to inspection Skin: no rashes, warm and dry Neurologic: no focal motor deficits Psychiatric: Orientation: alert and oriented x 3 Affect: euthymic affect Results & Data Vital Signs (Past 12 Hours) Vital Signs Pulse Pulse Resp BP Pulse Ox O2 Del Method O2 Flow Rate 07/17/24 09:38 89 16 103/44 L 95 Oxymask 5 07/17/24 09:35 88 19 106/51 L 95 Oxymask 5 07/17/24 09:30 88 22 98/51 L 95 Oxymask 5 07/17/24 09:25 91 H 21 120/61 95 Oxymask 5 07/17/24 09:20 94 H 18 131/67 96 Oxymask 5 07/17/24 09:08 93 H 30 H 127/67 94 Oxymask 4 07/17/24 08:12 94 H 16 117/54 L 94 Nasal Cannula 2 07/17/24 07:30 Nasal Cannula 2 PG Care Time/CCT Total # of Minutes Spent Total Time Spent with Patient: Total time spent is greater than 50% in coordination of care (as documented) at patient's floor/unit and/or counseling patient: Coding Level of Care Code 09760 SUB INP/OBS CARE 2/35MIN Diagnoses Acute kidney injury N17.9 Tumor lysis syndrome E88.3 Pneumonia J18.9 Small cell lung cancer C34.90 Metastasis to liver C78.7 Diabetes E11.9 Hypertension I10
[2024-07-17 11:41] LABS: Hep B Surface Ag with confirm Negative (Negative)
[2024-07-17 11:50] LABS: Hepatitis B Surface Ab Quant 4.44 mIU/mL (>or=10mIU/mL Immune); Hepatitis B Surface Antibody Non-Immune
[2024-07-17] MEDS: SEVELAMER CARBONATE 800 MG TAB PO SCH (13:45)
[2024-07-17] MEDS: dexAMETHasone 4 MG TAB PO SCH (14:05)
[2024-07-17] MEDS: ceFAZolin 2,000 MG/15 ML IV PUSH IV ONE (15:32)
[2024-07-17] MEDS: HEPARIN SOD (PORCINE) 1000 UNIT/ML ONE (15:32)
[2024-07-18 06:45] LABS: Hematocrit (blood only) 30.4 % (42.0-52.0); Mean Corpuscular Hgb Conc 32.9 g/dL (32.0-36.0); Mean Corpuscular Volume 91.3 fL (80.0-100.0); Mean Platelet Volume 11.7 fL (9.4-12.4); Platelet Count 140 K/uL (130-400); RDW Coefficient of Variation 15.8 % (11.5-14.5); RDW Standard Deviation 52.6 fL (36.4-46.3); Red Blood Count 3.33 M/uL (4.70-6.10); White Blood Count 12.27 K/ul (4.8-10.8)
[2024-07-18 07:04] LABS: Basophils # (auto) 0.01 K/uL (0.00-0.20); Basophils % (auto) 0.1 %; Immature Granulocytes # (auto) 0.08 K/uL (0.01-0.20); Immature Granulocytes % (auto) 0.7 %; Lymphocytes # (auto) 0.18 K/uL (1.20-3.40); Lymphocytes % (auto) 1.5 %; Monocytes # (auto) 0.37 K/uL (0.11-0.59); Neutrophils # (auto) 11.63 K/uL (1.40-6.50); Neutrophils % (auto) 94.7 %
--- NOTE | 2024-07-18 07:14 | Hospitalist Progress Note ---
Date of Service July 18, 2024 Assessment & Plan (1) Small cell lung cancer: (2) Transaminitis: (3) Acute hypokalemia: (4) Diabetes: (5) Chronic Kidney Disease: (6) Tobacco dependence due to cigarettes: (7) BPH (benign prostatic hyperplasia): (8) Hypertension: (9) Pulmonary hypertension: (10) Pneumonia: Plan # Lung Cancer: HPE: Small cell lung ca mets to liver. Chemotherapy started 07/17-> day 09/07 today Hold meloxicam. Avoid NSAIDs to avoid bleeding risk. Avoid Tylenol due to elevated LFTs Low-dose oxycodone as needed for pain. # Side effects of chemo Dryness of mouth: Magic mouthwash, freq sips and water Nausea: Zofran PRN, helping Loss of appetite: Rec small portion meal more frequent Encourage ambulation # Tumor lysis Syndrome: Urate nephropathy Creatinine: Rising trend; 6.05 07/18-----<5.85 S/p first session of HD 07/17 S/P Rasburicase for TLS #Transaminitis AST/ALT/ALP: Elevated but stable CT AP : multiple hepatic implants consistent with metastatic disease. Biopsy confirmed SCC mets from Lung. #AVE with baseline Chronic Kidney Disease: D/T tumor lysis syndrome. Creatinine: Up-trending S/p 1 st session of HD on 07/17 Nephro F/U awaited #PNA: - Newly developed PNE on LLL. - Augmentin with coverage for aspiration PNA - Sputum C/S : Normal renny #Tobacco dependence due to cigarettes: Greater than [id number] smoking history Currently smokes 1-1/2 packs/day Not interested in smoking cessation at this time Refused nicotine patch. #HTN - Jardiance, lisinopril, nifedipine on hold due to hypotension/kidney function Other chronic #COPD: stable, continue inhaler. #Diabetes: [id number]/ Recent HA1c 6.3% #Chronic Kidney Disease: #BPH (benign prostatic hyperplasia): Continue home meds, Notcturia noted. #Pulmonary hypertension: Sildenafil continue. DVT: Lovenox 30 mg once daily (CrCl< 30) Admission and Anticipated Discharge Date Admission Date: July 12, 2024 Supervising Physician Co-Signing Physician Notes I personally examined the patient and verified funes points of history and exam, discussed case, and agree with decision making and plan documented by Dr. Ch. Evaluated patient with family at bedside. Patient sleeping after chemotherapy. Continue supportive measures. Subjective Pt seen at bedside, daughter Monalisa by his side. He seems more tired and endorses nausea, dryness of mouth and loose stool throughout night. No fever, feeling better in term of chest congestion, able to walk around. Next dose of chemo scheduled today. Zofran helped his nausea better. Nurse mentioned me about difficulty in swallowing. Review of Systems Review of Systems: As per above Physical Exam Physical Exam: Constitutional: Fatigued looking, No acute distress. HEENT: Atraumatic, Normocephalic, No conjunctival injection CVS: S1 S2 no murmur, Regular Rhythm, no LE edema Respiratory: BL decreased air entry with PVBS, however better than before.Coarse breath sound. No increased work of breathing GI: Soft, Nondistended, Nontender, Normal Bowel sounds + MSK: No gross deformities noted Skin: Warm, Dry, No rashes Neuro: Alert, Oriented to TPP, No Focal deficit Psych: Mood and Affect congruent, Cooperative on exam Results & Data Results & Data Vital Signs (Past 12 Hours) Vital Signs Temp Pulse Resp BP Pulse Ox O2 Del Method O2 Flow Rate 07/17/24 20:30 Nasal Cannula 2 07/17/24 20:28 36.4 C L 100 H 16 120/58 L 94 Nasal Cannula 3 Resident Activity Tracking Resident Involvement: Resident Care Provided Care Provided: Adult Hospital Medicine
[2024-07-18 07:24] LABS: Albumin Globulin Ratio 1.4 (0.9-2); Albumin Level 2.8 gm/dl (3.4-5.0); BUN Creatinine Ratio 15.9 (10-20); Calcium 6.8 mg/dl (8.6-10.3); Phosphorus 9.6 mg/dl (2.5-4.9); Potassium 4.8 mmol/L (3.5-5.1); Total Protein 4.8 gm/dl (6.0-8.3)
--- NOTE | 2024-07-18 07:30 | Hematology/Oncology Prog Note ---
Date of Service July 18, 2024 Assessment & Plan (1) Small cell lung cancer: (2) Pneumonia: (3) Acute kidney injury: (4) Tumor lysis syndrome: Plan Recommend stool studies and if negative for infection, can give Imodium for diarrhea Continue with Zofran for nausea Proceed with cycle 1, day 3 of treatment today. He will receive G-CSF tomorrow to reduce risk of neutropenia Admission and Anticipated Discharge Date Admission Date: July 12, 2024 Subjective He received cycle 1 day 1 of carbo, etoposide on 07/16/2024, cycle 1, day 2 of etoposide on 07/17/2024. Started hemodialysis yesterday. Complains of diarrhea and significant fatigue. Also had an episode of nausea which he states improved with Zofran. Results & Data Vital Signs (Past 12 Hours) Vital Signs Temp Pulse Pulse Resp BP BP Pulse Ox 07/18/24 07:25 92 H 18 134/65 92 07/17/24 20:30 07/17/24 20:28 36.4 C L 100 H 16 120/58 L 94 O2 Del Method O2 Flow Rate 07/18/24 07:25 Nasal Cannula 2 07/17/24 20:30 Nasal Cannula 2 07/17/24 20:28 Nasal Cannula 3
[2024-07-18] MEDS: PANTOprazole 40 MG TAB PO SCH (09:15)
[2024-07-18] MEDS: NEPHROCAPS PO SCH (10:24)
[2024-07-18] MEDS: PALONOSETRON 0.25 MG in SYRINGE 0 ML IV SCH (10:56)
--- NOTE | 2024-07-18 12:54 | Nephrology Progress Note ---
Date of Service July 18, 2024 Assessment & Plan (1) Acute kidney injury: Plan: AVE with tumor lysis syndrome and possible urate nephropathy. Received rasburicase on 07/14/2024. RIJ HD permcath placed 07/17/24. First HD treatment completed yesterday. Tolerate d treatment well with adequate UF. Electrolytes and volume status acceptable. Hold HD today. Document I/O's. Repeat metabolic profile tomorrow AM. Daily AM evaluation for HD will be provided. Possible treatment tomorrow AM. (2) Chronic Kidney Disease: Plan: CKD IIIa A2. 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 Medications appropriately dosed for kidney function. Limit rosuvastatin to 5-10 mg daily. (3) Tumor lysis syndrome: Plan: Low phosphorus diet. Repeat metabolic profile tomorrow AM. (4) Pneumonia: (5) Small cell lung cancer: Plan: Cycle 1, day 1 of carbo + etoposide on 07/16/2024. Cycle 1, day 3 today. (6) Diabetes: (7) Hypertension: Plan: BP acceptable. Continue to hold lisinopril. Avoid RAASi. Admission and Anticipated Discharge Date Admission Date: July 12, 2024 Subjective No acute events overnight. No complaints this AM. Emmett is resting in bed with his family at the bedside. Etoposide infusing. No fevers or chills. Breathing comfortably. Nausea persists. Noted loose stools. Family report cough productive of some blood tinged sputum. No significant abdominal pain at this time. Remains relatively oliguric. Review of Systems Review of Systems: All systems reviewed & are unremarkable except as noted in HPI & below Constitutional: + fatigue and + anorexia Gastrointestinal: + belching, + bloating, + nausea and + d iarrhea/loose stools Physical Exam Constitutional: no acute distress Eyes: + anicteric sclerae ENMT: Mouth: oral mucous membranes not dry Neck: normal visual inspection Respiratory: normal respiratory effort Auscultation: lungs clear to auscultation bilaterally Cardiovascular: Rate/Rhythm: regular rate Heart Sounds: normal S1 and normal S2 Extremities: + edema (1+ pitting to mid [place]. Some dependent edema in flanks) Musculoskeletal: Extremities: no cyanosis and no clubbing Skin: no jaundice Neurologic: Motor/Sensory: no tremor and no asterixis Psychiatric: Orientation: alert and oriented x 3 Results & Data Vital Signs (Past 12 Hours) Vital Signs Pulse Resp BP Pulse Ox O2 Del Method O2 Flow Rate 07/18/24 07:25 92 H 18 134/65 92 Nasal Cannula 2 Laboratory Results Laboratory Results - last 24 hr 07/17/24 07/17/24 07/18/24 16:36 20:27 05:57 WBC 12.27 H RBC 3.33 L Hgb 10.0 L Hct 30.4 L MCV 91.3 MCH 30.0 MCHC 32.9 RDW Std Deviation 52.6 H RDW Coeff of [place] 15.8 H Plt Count 140 MPV 11.7 Immature Gran % (Auto) 0.7 Neut % (Auto) 94.7 Lymph % (Auto) 1.5 [place] % (Auto) 3.0 Eos % (Auto) 0.0 Baso % (Auto) 0.1 Neut # (Auto) 11.63 H Lymph # (Auto) 0.18 L [place] # (Auto) 0.37 Eos # (Auto) 0.00 Baso # (Auto) 0.01 Immature Gran # (Auto) 0.08 Sodium 139 Potassium 4.8 Chloride 104 Carbon Dioxide 22 Anion Gap 13 H BUN 96 H Creatinine 6.05 H* Est Cr Clr Drug Dosing 11.0 eGFR 9.34 BUN/Creatinine Ratio 15.9 Glucose 138 H POC Glucose 146 H 144 H Calcium 6.8 L Phosphorus 9.6 H Total Bilirubin 1.0 AST 146 H ALT 75 H Alkaline Phosphatase 404 H Total Protein 4.8 L Albumin 2.8 L Globulin 2.0 L Albumin/Globulin Ratio 1.4 Stl C. diff Tox B Gene 07/18/24 07/18/24 07/18/24 07:53 08:11 11:38 WBC RBC Hgb Hct MCV MCH MCHC RDW Std Deviation RDW Coeff of [place] Plt Count MPV Immature Gran % (Auto) Neut % (Auto) Lymph % (Auto) [place] % (Auto) Eos % (Auto) Baso % (Auto) Neut # (Auto) Lymph # (Auto) [place] # (Auto) Eos # (Auto) Baso # (Auto) Immature Gran # (Auto) Sodium Potassium Chloride Carbon Dioxide Anion Gap BUN Creatinine Est Cr Clr Drug Dosing eGFR BUN/Creatinine Ratio Glucose POC Glucose 132 H 127 H Calcium Phosphorus Total Bilirubin AST ALT Alkaline Phosphatase Total Protein Albumin Globulin Albumin/Globulin Ratio Stl C. diff Tox B Gene Negative Cdiff Gene PG Care Time/CCT Total # of Minutes Spent Total Time Spent with Patient: Total time spent is greater than 50% in coordination of care (as documented) at patient's floor/unit and/or counseling patient: Coding Level of Care Code 27968 SUB INP/OBS CARE 3/50MIN Diagnoses Acute kidney injury N17.9 Chronic Kidney Disease N18.9 Tumor lysis syndrome E88.3 Pneumonia J18.9 Small cell lung cancer C34.90 Diabetes E11.9 Hypertension I10
[2024-07-18] MEDS: FIRST - Mouthwash BLM 5 ML UDP PO ONE (13:27)
[2024-07-18] MEDS: LOPERAMIDE HCL 2 MG CAP PO PRN (13:27)
[2024-07-18] MEDS: SODIUM CHLORIDE 0.65% NA SOLN 45 ML (OCEAN) ONE (17:01)
[2024-07-18] MEDS: ENOXAPARIN INJ 30 MG/0.3 ML SYR SQ SCH (17:01)
[2024-07-18] MEDS: ROSUVASTATIN CALCIUM 10 MG TAB PO SCH (20:06)
[2024-07-19] MEDS: PROMETHAZINE 6.25 MG/50.25 ML BAG IV PRN (00:17)
[2024-07-19] MEDS: FAMOTIDINE 20MG IV PUSH 20 MG/5 ML SYR IV ONE (06:16)
--- NOTE | 2024-07-19 07:09 | Hospitalist Progress Note ---
Date of Service July 19, 2024 Assessment & Plan (1) Small cell lung cancer: (2) Transaminitis: (3) Acute hypokalemia: (4) Diabetes: (5) Chronic Kidney Disease: (6) Tobacco dependence due to cigarettes: (7) BPH (benign prostatic hyperplasia): (8) Hypertension: (9) Pulmonary hypertension: (10) Pneumonia: Plan # Lung Cancer: HPE: Small cell lung ca mets to liver. Chemotherapy 1st cycle completed. Plan for filgrastim today. Low-dose oxycodone as needed for pain. Avoid nephrotoxic and hepatotoxic painkiller. # Side effects of chemo Explained his symptoms are expected coz of cumulative chemo, will wear off with time. Dryness of mouth: Magic mouthwash, freq sips and water Nausea: Zofran PRN Indigestion and Reflux: IV Protonix 40 mg OD to BID. Loss of appetite: Rec small portion meal more frequent. Encourage ambulation # Tumor lysis Syndrome: Urate nephropathy Creatinine: Rising trend; 7.43 07/19----<6.05 S/p first session of HD 07/17 S/P Rasburicase for TLS Nephro on board: appreciate recs #Transaminitis AST/ALT/ALP: Elevated but stable d/t Liver mets #AVE with baseline Chronic Kidney Disease: D/T tumor lysis syndrome. Creatinine: Up-trending( 7.43 today) S/p 1 st session of HD on 07/17 Nephro on board; possible 2nd session HD today. Strict I/O charting. #PNA: - Newly developed PNE on LLL. - Augmentin: will complete D5 today. - Sputum C/S : Normal renny #Tobacco dependence due to cigarettes: Greater than [id number] smoking history Refused nicotine patch on admission. #HTN - Jardiance, lisinopril, nifedipine on hold due to AVE. Monitor trend. Other chronic #COPD: stable, continue inhaler. #Diabetes: [id number]/ Recent HA1c 6.3% #Chronic Kidney Disease: #BPH (benign prostatic hyperplasia): Continue home Meds, Nocturia noted. #Pulmonary hypertension: Sildenafil continue. DVT: Lovenox 30 mg once daily (CrCl< 30) Admission and Anticipated Discharge Date Admission Date: July 12, 2024 Supervising Physician Co-Signing Physician Notes I personally examined the patient and verified funes points of history and exam, discussed case, and agree with decision making and plan documented by Dr. Rahman. Patient reports extreme fatigue and abdominal cramping with decreased appetite after cycle 1 of chemotherapy. Continue supportive measures. Possible HD tomorrow. at bedside. Subjective Today morning I saw Isrrael on bedside along with his , and daughter in law kishor on phone. He definitely feels worse this AM. Mentioned about indigestion and loss of appetite, feeling weaker than before. Congestion seems better, however chemo side effect seems bothering him. Discussed about rising creatinine level and possible hemodialysis by nephrology team. Answered their queries to my best. Review of Systems Review of Systems: As per above Physical Exam Physical Exam: Constitutional: Fatigued looking, lying on bed with O2 via nasal canula. CVS: S1 S2 no murmur, Regular Rhythm Respiratory: BL decreased air entry with PVBS, however better than before. No increased work of breathing GI: Soft, Nondistended, Nontender, Normal Bowel sounds + MSK: No gross deformities noted Skin: Warm, Dry, No rashes Neuro: Alert, Oriented to TPP, No Focal deficit Psych: Mood and Affect congruent, Cooperative on exam Results & Data Results & Data Vital Signs (Past 12 Hours) Vital Signs Temp Pulse Resp BP Pulse Ox O2 Del Method O2 Flow Rate 07/19/24 06:56 36.3 C L 79 16 115/60 93 Nasal Cannula 07/18/24 20:02 Nasal Cannula 2 07/18/24 19:57 36.3 C L 84 16 123/61 94 Nasal Cannula 2 Resident Activity Tracking Resident Involvement: Resident Care Provided Care Provided: Adult Hospital Medicine
[2024-07-19 07:22] LABS: Hematocrit (blood only) 32.9 % (42.0-52.0); Hemoglobin 10.5 g/dl (14.0-18.0); Mean Corpuscular Hemoglobin 29.2 pg (25.0-34.0); Mean Corpuscular Hgb Conc 31.9 g/dL (32.0-36.0); Mean Corpuscular Volume 91.4 fL (80.0-100.0); Platelet Count 131 K/uL (130-400); RDW Coefficient of Variation 15.9 % (11.5-14.5); RDW Standard Deviation 52.8 fL (36.4-46.3); White Blood Count 14.92 K/ul (4.8-10.8)
[2024-07-19 07:33] LABS: Albumin Globulin Ratio 1.4 (0.9-2); Albumin Level 2.9 gm/dl (3.4-5.0); BUN Creatinine Ratio 16.8 (10-20); Calcium 6.3 mg/dl (8.6-10.3); Globulin 2.1 gm/dl (2.5-4.0); Phosphorus 13.4 mg/dl (2.5-4.9); Uric Acid 3.4 mg/dl (2.6-7.2)
[2024-07-19 07:37] LABS: Basophils # (auto) 0.01 K/uL (0.00-0.20); Basophils % (auto) 0.1 %; Immature Granulocytes # (auto) 0.12 K/uL (0.01-0.20); Immature Granulocytes % (auto) 0.8 %; Lymphocytes # (auto) 0.32 K/uL (1.20-3.40); Lymphocytes % (auto) 2.1 %; Monocytes # (auto) 0.18 K/uL (0.11-0.59); Monocytes % (auto) 1.2 %; Neutrophils # (auto) 14.29 K/uL (1.40-6.50); Neutrophils % (auto) 95.8 %
[2024-07-19] MEDS: FIRST - Mouthwash BLM 5 ML UDP PO ONE (10:05)
--- NOTE | 2024-07-19 10:54 | Nephrology Progress Note ---
Date of Service July 19, 2024 Assessment & Plan (1) Acute kidney injury: Plan: AVE with tumor lysis syndrome, possible urate nephropathy, +ATN. RIJ HD permcath placed 07/17/24. First HD treatment completed 07/17/24. Tolerated treatment well. Orders for additional HD today were entered into the EHR and reviewed with the dailysis RN. Document I/O's. Repeat metabolic profile tomorrow AM. Daily AM evaluation for HD will be provided. Possible treatment tomorrow. Maintain low potassium diet. (2) Chronic Kidney Disease: Plan: CKD IIIa A2. Baseline creatinine ~1.6 mg/dL. 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 Medications appropriately dosed for kidney function. (3) Tumor lysis syndrome: Plan: Repeat labs tomorrow AM. (4) Pneumonia: (5) Small cell lung cancer: Plan: Cycle 1, day 1 of carbo + etoposide on 07/16/2024. Cycle 1, day 3 yesterday. (6) Diabetes: (7) Hypertension: Plan: BP acceptable. Continue to hold lisinopril. Avoid RAASi. Admission and Anticipated Discharge Date Admission Date: July 12, 2024 Subjective Mr. Arcos was seen and evaluated with his present this AM. I spoke with his [id number] by phone. Mr. Arcos was out of bed to bedside chair. He is very tired. He did not sleep well. Abdominal bloating and some discomfort persist. He continues to struggle with nausea. No bowel movements or loose stools overnight. Denies significant abdominal pain. No vomiting. Reports dryness and irritation on the inside of the mouth and nostrils. Appetite is poor. No fevers or chills. Remains relatively oliguric. No urinary complaints. Review of Systems Review of Systems: All systems reviewed & are unremarkable except as noted in HPI & below Physical Exam Constitutional: no acute distress Eyes: + anicteric sclerae ENMT: Mouth: oral mucous membranes not dry Neck: normal visual inspection Respiratory: normal respiratory effort Auscultation: lungs clear to auscultation bilaterally Cardiovascular: Rate/Rhythm: regular rate Heart Sounds: normal S1 and normal S2 Extremities: + edema (1+ pitting to mid [place]. Some dependent edema in flanks) Musculoskeletal: Extremities: no cyanosis and no clubbing Skin: no jaundice Neurologic: Motor/Sensory: no tremor and no asterixis Psychiatric: Orientation: alert and oriented x 3 Results & Data Vital Signs (Past 12 Hours) Vital Signs Temp Pulse Resp BP Pulse Ox O2 Del Method O2 Flow Rate 07/19/24 07:20 Nasal Cannula 2 07/19/24 06:56 36.3 C L 79 16 115/60 93 Nasal Cannula Laboratory Results Laboratory Results - last 24 hr 07/17/24 07/18/24 07/18/24 10:06 11:38 16:34 WBC RBC Hgb Hct MCV MCH MCHC RDW Std Deviation RDW Coeff of [place] Plt Count MPV Immature Gran % (Auto) Neut % (Auto) Lymph % (Auto) [place] % (Auto) Eos % (Auto) Baso % (Auto) Neut # (Auto) Lymph # (Auto) [place] # (Auto) Eos # (Auto) Baso # (Auto) Immature Gran # (Auto) Sodium Potassium Chloride Carbon Dioxide Anion Gap BUN Creatinine Est Cr Clr Drug Dosing eGFR BUN/Creatinine Ratio Glucose POC Glucose 127 H 141 H Uric Acid Calcium Phosphorus Total Bilirubin AST ALT Alkaline Phosphatase Total Protein Albumin Globulin Albumin/Globulin Ratio Hep B Core IgM Ab NON-REACTIVE 07/18/24 07/19/24 07/19/24 20:36 06:42 07:44 WBC 14.92 H RBC 3.60 L Hgb 10.5 L Hct 32.9 L MCV 91.4 MCH 29.2 MCHC 31.9 L RDW Std Deviation 52.8 H RDW Coeff of Iraida 15.9 H Plt Count 131 MPV 12.0 Immature Gran % (Auto) 0.8 Neut % (Auto) 95.8 Lymph % (Auto) 2.1 [place] % (Auto) 1.2 Eos % (Auto) 0.0 Baso % (Auto) 0.1 Neut # (Auto) 14.29 H Lymph # (Auto) 0.32 L [place] # (Auto) 0.18 Eos # (Auto) 0.00 Baso # (Auto) 0.01 Immature Gran # (Auto) 0.12 Sodium 138 Potassium 6.0 H D Chloride 103 Carbon Dioxide 21 Anion Gap 14 H BUN 125 H D Creatinine 7.43 H* D Est Cr Clr Drug Dosing 9.0 eGFR 7.30 BUN/Creatinine Ratio 16.8 Glucose 139 H POC Glucose 153 H 144 H Uric Acid 3.4 Calcium 6.3 L Phosphorus 13.4 H Total Bilirubin 1.0 AST 182 H ALT 49 Alkaline Phosphatase 394 H Total Protein 5.0 L Albumin 2.9 L Globulin 2.1 L Albumin/Globulin Ratio 1.4 Hep B Core IgM Ab PG Care Time/CCT Total # of Minutes Spent Total Time Spent with Patient: Total time spent is greater than 50% in coordination of care (as documented) at patient's floor/unit and/or counseling patient: Coding Level of Care Code 96514 SUB INP/OBS CARE 3/50MIN Diagnoses Acute kidney injury N17.9 Chronic Kidney Disease N18.9 Tumor lysis syndrome E88.3 Pneumonia J18.9 Small cell lung cancer C34.90 Diabetes E11.9 Hypertension I10
[2024-07-19] MEDS: SEVELAMER CARBONATE 800 MG TAB PO SCH (15:03)
[2024-07-19] MEDS: FILGRASTIM 480 MCG/1.6 ML VIAL SQ SCH (15:08)
[2024-07-19] MEDS: PANTOprazole 40 MG/10 ML SYR IV SCH ×2 (15:37→21:21)
[2024-07-19] MEDS ORDERED: SIMETHICONE 40 MG/0.6 ML 30ML PO PRN (20:39)
--- NOTE | 2024-07-19 20:41 | Communication Note ---
Date of Service: July 19, 2024 I was called by RN to evaluate patient due to concern of new tender mass/lump in anterior shoulder. On arrival to bedside, patient laying comfortably in bed on his left side. Patient states he does have history of rotator cuff tear that was surgically repaired and he is not sure if his current pain is related to that or due to other etiology, but does state that mass is new and patient's relative who was also at bedside does not recall seeing it there yesterday. ROM in right UE affected and patient needs to use left arm to lift his right one. To my evaluation, patient awake and alert, calm and laying comfortably. Does have a slightly firm palpable lump that was mildly tender to palpation. No skin changes noted around right IJ permcath. Patient currently in prophylactic dose of Lovenox but no other anticoagulants. Possible current presentation could be due to intramuscular hematoma versus tendon tear versus other. US ordered to evaluate. Also added Simethicone due to c/o gas pain. Resident Activity Tracking Resident Involvement: Resident Care Provided Care Provided: Adult Hospital Medicine
[2024-07-19] MEDS: SIMETHICONE 80 MG CHEW PO PRN (23:12)
--- NOTE | 2024-07-20 01:34 | Ultrasound Report ---
EXAM: US extremity non-vascular ltd CLINICAL HISTORY: New tender mass/bulge in RT's upper arm. Rt anterior shoulder/prox upper arm scanned in region of POI. Diffuse area of heterogeneity/hypoechoic fluid collection seen,? probable hematoma. TECHNIQUE: Ultrasound of the right upper arm was performed using a linear high-frequency probe and multiple images were obtained. COMPARISON: None. FINDINGS: A diffuse area of heterogeneity is noted in the subcutaneous tissue of the right shoulder in the region of the patient's interest showing hyperechoic fat lobules by hypoechoic fluid-filled areas, giving a "cobblestone" appearance suggestive of cellulitis or developing hematoma. A few tiny anechoic foci are noted in the subcutaneous fat probably tiny fluid collections. No solid mass is noted. Anechoic vessels are noted. IMPRESSION: 1. A diffuse area of heterogeneity in the subcutaneous tissue with hyperechoic fat lobules by hypoechoic fluid-filled areas, giving a "cobblestone" appearance suggestive of cellulitis or developing hematoma. 2. A few tiny anechoic foci are noted in the subcutaneous fat, probably tiny fluid collections. 3. Clinical correlation and follow-up is recommended. Electronically signed by Ro Ng 07-20-2024 01:33 AM
[2024-07-20 06:25] LABS: Albumin Level 2.8 gm/dl (3.4-5.0); Calcium 6.6 mg/dl (8.6-10.3); Potassium 5.2 mmol/L (3.5-5.1)
[2024-07-20 06:31] LABS: Hematocrit (blood only) 30.1 % (42.0-52.0); Hemoglobin 10.2 g/dl (14.0-18.0); Mean Corpuscular Hemoglobin 30.7 pg (25.0-34.0); Mean Corpuscular Hgb Conc 33.9 g/dL (32.0-36.0); Mean Corpuscular Volume 90.7 fL (80.0-100.0); Mean Platelet Volume 11.9 fL (9.4-12.4); Platelet Count 105 K/uL (130-400); RDW Coefficient of Variation 15.7 % (11.5-14.5); RDW Standard Deviation 51.4 fL (36.4-46.3); Red Blood Count 3.32 M/uL (4.70-6.10); White Blood Count 27.95 K/ul (4.8-10.8)
[2024-07-20 06:37] LABS: Albumin Globulin Ratio 1.6 (0.9-2); BUN Creatinine Ratio 14.3 (10-20); Creatinine Clr Calc Pharmacy 12.2 ml/min; Globulin 1.8 gm/dl (2.5-4.0); Phosphorus 10.7 mg/dl (2.5-4.9); Total Protein 4.6 gm/dl (6.0-8.3)
[2024-07-20 07:11] LABS: Basophils # (auto) 0.06 K/uL (0.00-0.20); Basophils % (auto) 0.2 %; Eosinophils # (auto) 0.05 K/uL (0.00-0.50); Eosinophils % (auto) 0.2 %; Immature Granulocytes % (auto) 6.1 %; Lymphocytes % (auto) 2.1 %; Monocytes # (auto) 0.08 K/uL (0.11-0.59); Monocytes % (auto) 0.3 %; Neutrophils # (auto) 25.46 K/uL (1.40-6.50); Neutrophils % (auto) 91.1 %
--- NOTE | 2024-07-20 07:24 | Hospitalist Progress Note ---
Date of Service July 20, 2024 Assessment & Plan (1) Small cell lung cancer: (2) Transaminitis: (3) Acute hypokalemia: (4) Diabetes: (5) Chronic Kidney Disease: (6) Tobacco dependence due to cigarettes: (7) BPH (benign prostatic hyperplasia): (8) Hypertension: (9) Pulmonary hypertension: (10) Pneumonia: Plan # Lung Cancer: HPE: Small cell lung ca mets to liver. Chemotherapy 1st cycle completed. Filgrastim ongoing/ Low-dose oxycodone as needed for pain. Avoid nephrotoxic and hepatotoxic painkiller. #Bruise on Right arm: - NO lump underneath. - Hold Enoxaparin. #Side effects of chemo Explained his symptoms are expected coz of cumulative chemo, will wear off with time. Dryness of mouth: Magic mouthwash, freq sips and water Nausea: Zofran PRN Indigestion and Reflux: IV Protonix 40 mg OD to BID. Loss of appetite: Rec small portion meal more frequent. Encourage ambulation Booster protein diet added today. #Tumor lysis Syndrome: Urate nephropathy; 3rd HD today Creatinine: 5.44( 07/20)---<7.43 07/19----<6.05 S/p 2nd session of HD 07/19 S/P Rasburicase for TLS Nephro on board: appreciate recs #Transaminitis AST/ALT/ALP: Elevated but stable d/t Liver mets #AVE with baseline Chronic Kidney Disease: D/T tumor lysis syndrome. Creatinine: elevated still ( 5.44 today) S/p 1 st session of HD on 07/17 Nephro on board; possible 2nd session HD today. Strict I/O charting. #PNA: Improved, D5 Abx yesterday. #Tobacco dependence due to cigarettes: Greater than [id number] smoking history Refused nicotine patch on admission. #HTN - Jardiance, lisinopril, nifedipine on hold due to AVE. Monitor trend. Other chronic #COPD: stable, continue inhaler. #Diabetes: [id number]/ Recent HA1c 6.3% #Chronic Kidney Disease: #BPH (benign prostatic hyperplasia): Continue home Meds, Nocturia noted. #Pulmonary hypertension: Sildenafil continue. DVT: Lovenox 30 mg once daily (CrCl< 30) Admission and Anticipated Discharge Date Admission Date: July 12, 2024 Supervising Physician Co-Signing Physician Notes I personally examined the patient and verified all funes points of history and exam, discussed case, and agree with decision making with Dr Rahman not able to eat very well. Feels bloated very quickly. Some diarrhea some loose stool. Vitals noted. In general he is awake and alert pleasant no distress. HEENT normocephalic atraumatic mucous membranes moist. Breathing unlabored no accessory muscle use. Abdomen moderately distended feeling quite gaseous distention and slightly tympanic, mild diffuse tenderness. No guarding rebound or rigidity. Poor p.o. intake/early satietydiscussed again the critical importance of adequate nutrition with patient given his cancer journey. Discussed that to a degree getting enough nutrition should be viewed as a "nonnegotiable" given the high probability of any irreparable decline if he gets behind nutritionally. At the same time, I am quite suspicious he has a degree of constipation leading to his easy bloating given his symptoms and exam. Since it would be slightly atypical, and he does have an abdominal process going on with the metastaseswill check a KUB to confirm stool and rule out catastrophe such as free air (doubtful)and then proceed with the bowel regimen. appreciate laila aleman input Otherwise as above Subjective This AM Mr Arcos is stable. No overnight issue except from 2 episodes of diarrhoea he had this AM. He was little frustrated with this fact that he is not able to control his bowel. no Fever, better in congestion, no SOB, CP. GI issues( basically gassy and pain) is bothering him as well, he doesnot feel simethicone is helping him at all, rather make him bloat. He is little better in his nutrition, ate some breakfast this AM. tolerated well. Discussed need of ? Cane, will rec PT/OT today. ?Leak from catheter site. No continuous leak though. Review of Systems Review of Systems: As per above Physical Exam Physical Exam: Constitutional: Fatigued looking, lying on bed with O2 via nasal canula. CVS: S1 S2 no murmur, Regular Rhythm Respiratory: BL decreased air entry with PVBS, however better than before. No increased work of breathing GI: Soft, Nondistended, Nontender, Normal Bowel sounds + MSK: No gross deformities noted. Bruises over right anteromedial arm. No lump palpable underneath. Skin: Warm, Dry, Bruises on Arm. Neuro: Alert, Oriented to TPP, No Focal deficit Psych: Mood and Affect congruent, Cooperative on exam Results & Data Results & Data Vital Signs (Past 12 Hours) Vital Signs Temp Pulse Resp BP Pulse Ox O2 Del Method O2 Flow Rate 07/19/24 20:17 Nasal Cannula 2 07/19/24 19:57 36.8 C 85 16 150/72 H 94 Oxymask FiO2 07/19/24 20:17 07/19/24 19:57 2 Resident Activity Tracking Resident Involvement: Resident Care Provided Care Provided: Adult Hospital Medicine
--- NOTE | 2024-07-20 11:27 | Nephrology Progress Note ---
Date of Service July 20, 2024 Assessment & Plan (1) Acute kidney injury: Plan: AVE with tumor lysis syndrome, urate nephropathy, +ATN. No signs of renal recovery. Plan to continued HD 3 x weekly for AVE with close monitoring. Orders for dialysis today were entered into the EHR and reviewed with the dairy farmworker. Pepe has been tolerating treatments well. RIJ HD permcath placed 07/17/24. First HD treatment completed 07/17/24. Tolerated treatment well. I spoke with [facility] today and the case maker at [facility]. We will make arrangements to continue dialysis at [facility] under my care post discharge. Document I/O's. Repeat metabolic profile tomorrow AM. Maintain low potassium diet. Medications are currently appropriately dosed for kidney dysfunction. (2) Chronic Kidney Disease: Plan: CKD IIIa A2. Baseline creatinine ~1.6 mg/dL. 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 Medications appropriately dosed for kidney function. (3) Pneumonia: (4) Small cell lung cancer: Plan: Cycle 1, day 1 of carbo + etoposide on 07/16/2024. Cycle 1, day 3 07/18/24. (5) Metastasis to liver: (6) Hypertension: Plan: BP acceptable. Continue to hold lisinopril. Avoid RAASi. Admission and Anticipated Discharge Date Admission Date: July 12, 2024 Subjective No acute events overnight. Noted hematoma in arm which has turned into tenderness with some bruising. Emmett also reported some leakage of blood from the HD permcath exit site. There is mild tenderness over the pocket. No erythema. He tolerated HD well yesterday. Abdominal bloating and discomfort persist. Appetite decreased (~25% of meals). No vomiting. Diarrhea improved. No abdominal pain. No fevers or chills. Emmett hopes to be discharged home soon. He believes that he would be more comfortable and sleep better at home. He is planning to continue HD at [facility] post discharge. Review of Systems Review of Systems: All systems reviewed & are unremarkable except as noted in HPI & below Physical Exam Constitutional: no acute distress Eyes: + anicteric sclerae ENMT: Mouth: oral mucous membranes not dry Neck: normal visual inspection Respiratory: normal respiratory effort Auscultation: lungs clear to auscultation bilaterally Cardiovascular: Rate/Rhythm: regular rate Heart Sounds: normal S1 and normal S2 Extremities: + edema (1+ pitting to mid [place]. Some dependent edema in flanks) Musculoskeletal: Extremities: no cyanosis and no clubbing Skin: no jaundice Neurologic: Motor/Sensory: no tremor and no asterixis Psychiatric: Orientation: alert and oriented x 3 Results & Data Vital Signs (Past 12 Hours) Vital Signs Temp Pulse Resp BP Pulse Ox O2 Del Method O2 Flow Rate 07/20/24 09:45 Room Air 07/20/24 07:25 36.7 C 73 16 127/62 93 Nasal Cannula 2 Laboratory Results Laboratory Results - last 24 hr 07/19/24 07/20/24 07/20/24 20:29 05:31 07:27 WBC 27.95 H D RBC 3.32 L Hgb 10.2 L Hct 30.1 L MCV 90.7 MCH 30.7 MCHC 33.9 RDW Std Deviation 51.4 H RDW Coeff of Iraida 15.7 H Plt Count 105 L MPV 11.9 Immature Gran % (Auto) 6.1 Neut % (Auto) 91.1 Lymph % (Auto) 2.1 [place] % (Auto) 0.3 Eos % (Auto) 0.2 Baso % (Auto) 0.2 Neut # (Auto) 25.46 H Lymph # (Auto) 0.60 L [place] # (Auto) 0.08 L Eos # (Auto) 0.05 Baso # (Auto) 0.06 Immature Gran # (Auto) 1.70 H Sodium 140 Potassium 5.2 H Chloride 104 Carbon Dioxide 26 Anion Gap 10 BUN 78 H D Creatinine 5.44 H* D Est Cr Clr Drug Dosing 12.2 eGFR 10.61 BUN/Creatinine Ratio 14.3 Glucose 90 POC Glucose 108 H 96 Uric Acid 3.0 Calcium 6.6 L Phosphorus 10.7 H Total Bilirubin 1.0 AST 223 H ALT 39 Alkaline Phosphatase 358 H Total Protein 4.6 L Albumin 2.8 L Globulin 1.8 L Albumin/Globulin Ratio 1.6 PG Care Time/CCT Total # of Minutes Spent Total Time Spent with Patient: Total time spent is greater than 50% in coordination of care (as documented) at patient's floor/unit and/or counseling patient: Coding Level of Care Code 93888 SUB INP/OBS CARE 3/50MIN Diagnoses Acute kidney injury N17.9 Chronic Kidney Disease N18.9 Pneumonia J18.9 Small cell lung cancer C34.90 Metastasis to liver C78.7 Hypertension I10
--- NOTE | 2024-07-20 13:49 | XRay Report ---
KUB CLINICAL HISTORY: Diarrhea. Constipation. COMPARISON STUDY: CT of the abdomen and pelvis July 12, 2024. FINDINGS: The bowel gas pattern is normal. Vascular calcification is incidentally noted. No urinary c alculi are identified. The amount of stool is within normal limits. IMPRESSION: 1. No evidence for a bowel obstruction. 2. Amount of stool within normal limits. ACT 112: Negative or not required by law. Electronically signed by: Cheo Vieira M.D. 07/20/2024 1:47 PM
--- NOTE | 2024-07-20 18:29 | Billing Data ---
Date of Service July 20, 2024 Coding Level of Care Code 28268 SUB INP/OBS CARE MIN
[2024-07-20] MEDS: POLYETHYLENE (MIRALAX) 17 GM PACK PO ONE (20:11)
[2024-07-21 07:35] LABS: Hematocrit (blood only) 30.7 % (42.0-52.0); Hemoglobin 10.3 g/dl (14.0-18.0); Mean Corpuscular Hemoglobin 29.9 pg (25.0-34.0); Mean Corpuscular Hgb Conc 33.6 g/dL (32.0-36.0); RDW Coefficient of Variation 15.3 % (11.5-14.5); RDW Standard Deviation 49.8 fL (36.4-46.3); Red Blood Count 3.45 M/uL (4.70-6.10); White Blood Count 20.02 K/ul (4.8-10.8)
[2024-07-21 07:43] LABS: Albumin Level 2.8 gm/dl (3.4-5.0); BUN Creatinine Ratio 13.4 (10-20); C Reactive Protein 4.24 mg/dl (0-0.5); Calcium 6.9 mg/dl (8.6-10.3); Creatinine Clr Calc Pharmacy 14.8 ml/min; Phosphorus 7.9 mg/dl (2.5-4.9); Potassium 4.5 mmol/L (3.5-5.1)
[2024-07-21 08:00] LABS: Mean Platelet Volume 12.4 fL (9.4-12.4); Platelet Count 69 K/uL (130-400)
[2024-07-21 08:20] LABS: ANC (manual) 19.42 K/uL (1.4-6.5); Dohle Bodies 1+; Lymphocytes % (manual) 3 %; Neutrophils # (manual) 19.42 K/uL (1.40-6.50); Neutrophils % (manual) 97 %
--- NOTE | 2024-07-21 11:08 | Nephrology Progress Note ---
Date of Service July 21, 2024 Assessment & Plan (1) Acute kidney injury: Plan: AVE with tumor lysis syndrome, urate nephropathy, +ATN. No signs of renal recovery. Plan to continued HD 3 x weekly for AVE with close monitoring. BP and volume status are acceptable. Electrolytes controlled. Next HD planned for tomorrow. If discharged, HD will be completed at [facility] at 2:30 tomorrow. Emmett is aware. RI HD permcath placed 07/17/24. First HD treatment completed 07/17/24. Maintain low potassium diet. Medications are currently appropriately dosed for kidney dysfunction. (2) Chronic Kidney Disease: Plan: CKD IIIa A2. Baseline creatinine ~1.6 mg/dL. 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 Medications appropriately dosed for kidney function. (3) Pneumonia: (4) Small cell lung cancer: Plan: Cycle 1, day 1 of carbo + etoposide on 07/16/2024. Cycle 1, day 3 07/18/24. (5) Metastasis to liver: (6) Hypertension: Plan: BP acceptable. Continue to hold lisinopril. Avoid RAASi. Admission and Anticipated Discharge Date Admission Date: July 12, 2024 Subjective No acute events overnight. Emmett was seen and evaluated with his son at the bedside. He feels reasonably well. Abdominal distention and discomfort are improving. 2 loose bowel movements overnight. No melena or hematochezia. Stool is more formed. Denies significant nausea. Out of bed this morning. Reports reasonable strength. Mild lightheadedness. Hopeful to be discharged home. Remains relatively oliguric. Tolerated HD well yesterday. No complications with treatment. Review of Systems Review of Systems: All systems reviewed & are unremarkable except as noted in HPI & below Physical Exam Constitutional: no acute distress Eyes: + anicteric sclerae ENMT: Mouth: oral mucous membranes not dry Neck: normal visual inspection Respiratory: normal respiratory effort Auscultation: lungs clear to auscultation bilaterally Cardiovascular: Rate/Rhythm: regular rate Heart Sounds: normal S1 and normal S2 Extremities: + edema (trace) Musculoskeletal: Extremities: no cyanosis and no clubbing Skin: no jaundice Neurologic: Motor/Sensory: no tremor and no asterixis Psychiatric: Orientation: alert and oriented x 3 Results & Data Vital Signs (Past 12 Hours) Vital Signs Temp Pulse Resp BP Pulse Ox O2 Del Method O2 Flow Rate 07/21/24 07:50 Room Air, Nasal Cannula 07/21/24 07:26 36.6 C 77 18 128/64 92 Room Air 07/21/24 07:19 78 20 91 Room Air 07/21/24 00:30 Nasal Cannula 2 Laboratory Results Laboratory Results - last 24 hr 07/20/24 07/20/24 07/20/24 11:33 17:55 20:40 WBC RBC Hgb Hct MCV MCH MCHC RDW Std Deviation RDW Coeff of [place] Plt Count MPV Neutrophils % (Manual) Lymphocytes % (Manual) Neutrophils # (Manual) Total Absolute Neuts Lymphocytes # (Manual) Total Abs Lymphocytes Dohle Bodies Sodium Potassium Chloride Carbon Dioxide Anion Gap BUN Creatinine Est Cr Clr Drug Dosing eGFR BUN/Creatinine Ratio Glucose POC Glucose 89 73 113 H Calcium Phosphorus C-Reactive Protein Albumin 07/21/24 07/21/24 06:22 07:24 WBC 20.02 H RBC 3.45 L Hgb 10.3 L Hct 30.7 L MCV 89.0 MCH 29.9 MCHC 33.6 RDW Std Deviation 49.8 H RDW Coeff of [place] 15.3 H Plt Count 69 L MPV 12.4 Neutrophils % (Manual) 97 Lymphocytes % (Manual) 3 Neutrophils # (Manual) 19.42 H Total Absolute Neuts 19.42 H Lymphocytes # (Manual) 0.60 L Total Abs Lymphocytes 0.60 L Dohle Bodies 1+ Sodium 139 Potassium 4.5 Chloride 102 Carbon Dioxide 27 Anion Gap 10 BUN 60 H Creatinine 4.48 H D Est Cr Clr Drug Dosing 14.8 eGFR 13.39 BUN/Creatinine Ratio 13.4 Glucose 83 POC Glucose 100 H Calcium 6.9 L Phosphorus 7.9 H C-Reactive Protein 4.24 H Albumin 2.8 L PG Care Time/CCT Total # of Minutes Spent Total Time Spent with Patient: Total time spent is greater than 50% in coordination of care (as documented) at patient's floor/unit and/or counseling patient: Coding Level of Care Code 76890 SUB INP/OBS CARE 3/50MIN Diagnoses Acute kidney injury N17.9 Chronic Kidney Disease N18.9 Pneumonia J18.9 Small cell lung cancer C34.90 Metastasis to liver C78.7 Hypertension I10
[2024-07-21 14:58] VITALS: BP 149/71; PULSE 78; TEMP 98.1
[2024-07-21 15:58] VITALS: RESP 20; O2SAT 91
--- NOTE | 2024-07-21 16:47 | Discharge Summary ---
Date of Service July 21, 2024 Admission HPI Per Admitting Provider This is a 69-year-old male with a past medical history of diabetes mellitus ([id number]), BPH, CKD, hypertension, pulmonary hypertension on sildenafil, ongoing tobacco abuse. Patient presented to the emergency department for evaluation secondary to abdominal pain. He was found to have elevated LFTs. An ultrasound the abdomen was completed and showed multiple liver implants. Patient then received a CT chest abdomen pelvis (without contrast secondary to elevated creatinine) which revealed left upper lobe mass as well as possible metastatic implants to the L3 vertebrae and multiple scatt ered areas on the liver, and a 2.6 cm left adrenal nodule. Patient is being admitted for control of abdominal pain as well as workup for probable small cell carcinoma of the lung. 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 He does report that he smokes approximately 1-1/2 packs/day and has smoked for the past 60 years. No prior history of malignancy. Patient lives in the [facility] and follows with Dr. Daniel Dunn for chronic kidney disease. Creatinine is slightly elevated today at 1.79. BUN is 38. Patient denies any nausea or vomiting. He does have some diarrhea but this morning had a solid stool. He denies any hematochezia or melena. Patient does report history of hemorrhoids. ECG reveals normal sinus rhythm with PACs. There is also a right bundle branch block with a QTc of 512 ms. Potassium level is decreased at 3.0. Magnesium level is 2.0. LFTs are elevated with a total bilirubin of 1.3 and a direct bilirubin 0.6. AST 116, ALT 138, alkaline phosphatase 368, total protein 5.8, albumin 3.4, lipase 77. Patient did have labs on 05/14/2024. At that time LFTs were within target range. Patient does have a history of pulmonary hypertension and is currently being treated with sildenafil. No previous echocardiogram in [facility]. Cardiology note from 02/22/2022 reviewed. * Echocardiogram September 2019: Left ventricular ejection fraction 60%. AoR 2.8 cm. Mild TR. Thickened mitral valve. Trileaflet aortic valve. MAC, normal DF * Stress echocardiogram September 2020: Mario for: 5 1, 7 METS, 104% MPHR, study within normal limits * Carotid study February 2021: Mild less than 50% stenosis bilaterally * No mention of pulmonary hypertension in that note. However med list was reviewed and patient was on sildenafil (Revatio) 40 mg by mouth 3 times weekly. Patient reports to he has had back pain for greater than 20 years and was told that he had an area on the L3 vertebrae at that time. He is currently on meloxicam daily. This will be held pending biopsies. Patient denies any fever, chills, sweats, rigors. Pain is generally controlled at this time. We did discuss pain management and he agrees to trials of oxycodone so that we can avoid acetaminophen due to elevated LFTs and avoid NSAIDs to decrease risk of bleeding during procedures. Admission Exam Per Admitting Provider GENERAL : No acute distress EYES: No icterus, gaze conjugate NOSE: No evidence of epistaxis MOUTH: No lesions or candidiasis NECK: Supple LUNGS: Rales and rhonchi on the left posterior upper and lower lombardi. Right lung lombardi are clear to auscultation. Good inspirational effort HEART: Regular, rate controlled ABDOMEN: Soft, BS Present. Patient did have pain in the midepigastric region with light palpation. He also had guarding and some pain present in the right upper quadrant. Limited pain in the left upper quadrant. No pain in the right or left lower quadrants. No appreciation of abdominal bruit. EXTREMITIES: No LE edema, pedal pulses intact and equal bilaterally NEURO: A&OX3. Pupils equal round and reactive to light. Tongue is midline. No facial droop. Brachial radialis, bicep tendon, and patellar tendons 2/4 bilaterally. Strength is equal and appropriate bilaterally. Cerebellar function is intact with rapid alternating movements, [id number], [id number]. Toes are downgoing bilaterally. Sensation is equal and appropriate bilaterally to lower extremities. No slurred speech. No apparent cognitive deficits. 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 Improved Pneumonia S/P 1st cycle chemo S/P 3 session HD Discharge Exam Constitutional: Fatigued looking, lying on bed with O2 via nasal canula. CVS: S1 S2 no murmur, Regular Rhythm Respiratory: BL decreased air entry with PVBS, however better than before. No increased work of breathing GI: Soft, Nondistended, Nontender, Normal Bowel sounds + MSK: No gross deformities noted. Bruises over right anteromedial arm. No lump palpable underneath. Skin: Warm, Dry, Bruises on Arm. Neuro: Alert, Oriented to TPP, No Focal deficit Psych: Mood and Affect congruent, Cooperative on exam Discharge Data Allergies Allergy/AdvReac Type Severity Reaction Status Date / Time No Known Allergies Allergy Verified 05/14/24 10:40 Consultations 07/12/24 14:02 ED Decision to Admit Stat 07/12/24 18:07 Consult Pulmonology Routine 07/14/24 11:17 Consult Oncology Routine 07/14/24 15:19 Consult Nephrology Routine 07/16/24 10:21 Consult Vascular Surgery Routine Procedures Performed Operation Date: 07/17/24 08:50 Actual Procedures p Insertion Perm Catheter,Right Internal Jugular Approach,Ultrasound Localization of Right Internal Jugular Vein,Fluoroscopy for Positioning,Moderate [id number] - Riki Gallegos MD Ordered Studies 07/12/24 10:45 US gallbladder Stat 07/12/24 12:53 CT abd pelvis wo con Stat CT chest diagnostic wo con Stat 07/12/24 15:59 MR brain wo/w con Stat 07/13/24 IR biopsy liver US Stat 07/17/24 07:30 EV cvc insrt tunnel wo prt/parks recreation coordinator Routine US EV guide vascular access Routine 07/20/24 US extremity non-vascular ltd Urgent Hospital Course (1) Small cell lung cancer: (2) Transaminitis: (3) Acute hypokalemia: (4) Diabetes: (5) Chronic Kidney Disease: (6) Tobacco dependence due to cigarettes: (7) BPH (benign prostatic hyperplasia): (8) Hypertension: (9) Pulmonary hypertension: (10) Pneumonia: Plan # Lung Cancer: HPE: Small cell lung ca mets to liver. Chemotherapy 1st cycle completed. #Tumor lysis Syndrome with AVE on CKD Urate nephropathy; 3rd session HD completed S/P rasburicase and allopurinol on admission Will follow nephro for regular HD. PhosLo rec as per prescription. #Transaminitis AST/ALT/ALP: Elevated but stable d/t Liver mets #PNA: Improved, treated with Augmentin for 5 days.. #Tobacco dependence due to cigarettes: Suggest Nicotine patch and abstinence. #HTN - Jardiance, lisinopril, nifedipine on hold due to AVE. Monitor BP at home, trend at hospital looks fair enough that I dont recommend any additional medicine at this point. If elevated on home BP; rec per PCP/Nephro. Other chronic #COPD: stable, continue inhaler. #Diabetes: [id number]-wjjqzhucz/ Recent HA1c 6.3% #Chronic Kidney Disease: #BPH (benign prostatic hyperplasia): Continue home Meds, Nocturia noted. #Pulmonary hypertension: Sildenafil continue. Total Time Total Time Spent Total Time Spent (In Minutes): See attending's attestation Discharge Plan Discharge Items Patient Disposition: Home - Self-Care Reason For Visit: PROBABLE SCLCA, TRANSAMINITIS, ABD PAIN Discharge Diagnosis: Small cell carcinoma of lung mets to liver S/P 1st cycle of chemo S/P Hemodialysis for AVE on CKD Tumor lysis syndrome Activity: Resume your previous activity Non-emergency contact: Primary Care Provider and Tile Inspector Call non-emergency contact if: your symptoms worsen and your pain is unusual for you Follow-up/Referrals: Harinder Cardenas, [Primary Care Provider] - Diet: Dialysis Renal Addtl Attending Provider Instructions: You were admitted to the hospital for lung mass ultimately diagnosed as small cell lung cancer. You also developed tumor lysis syndrome before starting chemotherapy because of excessive growth of tumor cells indicative of a highly aggressive cancer. You received Chemotherapy 1st cycle in the hospital. You developed some side effects like loss of appetite, diarrhea, and dry mouth. We anticipate slow gradual improvements in these symptoms as chemo will start wearing off from your system until you get next cycle. We also gave you some Miralax to clean your bowel as there was lot of stool impacted in your bowel on xray. You also developed pneumonia on admission, which was treated with 5 days of antibiotics called Augmentin- your lungs sound much better on discharge. You do not need further antibiotics of this at this time. Your care during hospital stay was taken by combined approach from Pulmonology, Oncology and Nephrology team. You kidney function worsened during this hospital stay likely due to multiple factors like tumor lysis, dehydration, and contrast. Hence you ended up going for hemodialysis. You will be followed up by your nephrology doctor's team for continuation of hemodialysis, by oncology team for continuation of Chemotherapy. Make sure to establish appointment with them as per their recommendation. Your most recent Appointment is for Hemodialysis i.e. tomorrow at [place] ([facility] at 2:30 tomorrow). Nutrition goal: Your nutrition is currently messed up because of chemotherapy, stress of everything you are going through. We understand it is not expected that you reach your nutritional goal at once, however try increasing your intake as much as you can. Anticipate to reach goal of 1800 Kcal, focus on what you like to eat first and see if you can prioritize healthy diet including protein/ veggies and fruits. Nutritional compromise could be one of the most potential cause for rapid worsening of your condition. A discharge summary will be sent to your primary care physician to ensure continuity of care. Please bring this discharge summary with you to your next office appointment so that your provider can review it at that time. You will receive call from Oncology office sometime soon; if you don't contact their office at ([address],[place] [address]) Medications: Your medication list has been reviewed and reconciled upon discharge to ensure accuracy and continuity of care. An updated list of all your medications is included with your hospital discharge paperwork. Please review this list closely and make note of any changes to your medications. 1. We have held two of your pills for high blood pressure i.e. Lisinopril and Nifedipine because your blood pressure was too low. Your blood pressure trend in the hospital was good- without high blood pressure. I recommend you to monitor blood pressure at home regularly and have follow up with kidney and primary care doctors. 2. We will send as needed prescription for nausea med; Zofran and Constipation med Miralax. 3. We have held your Jardiance for this is not safe for your kidney's as well. Your random blood sugar on hospital admission are fair range. Your appetite is compromised too. Hence I recommend to keep track of Glucose on follow ups and see if additional medication is needed. 4. We have sent your Phoslo 667mg which you are supposed to take 2 tabs before every meal. Follow up appointments: - Make a follow up appointment with your PCP( Dr. Cardenas) within the next week. It is very important that you follow up with them shortly after discharge from the hospital. - Keep track and make follow up appointment with your nephrology and oncology. It is very important that you follow up with them as there is ongoing plan for chemotherapy and hemodialysis. - Keep all of your follow up appointments as already scheduled. If you cannot make an appointment, notify your provider. CONTACT YOUR PRIMARY CARE PROVIDER if you experience any of the following: - Sudden swelling of your legs and abdomen. - Difficulty following your treatment plan - Difficulty taking any of your medications CALL 911 OR GO TO THE EMERGENCY DEPARTMENT if you experience any of the following: - Severe lightheadedness, severe nausea. - Sudden, severe abdominal pain or nausea/vomiting - Severe chest pain or chest pain that radiates to your jaw or arm - Sudden, severe shortness of breath or difficulty breathing Pending Studies at Discharge: No Stand-Alone Forms: My [facility] [employer], Smoking Cessation Medications and DC Order Prescriptions: New ondansetron 4 mg tablet,disintegrating 4 mg PO BID PRN (Reason: nausea and vomiting) Qty: 14 0RF polyethylene glycol 3350 [Miralax] 17 gram/dose powder 34 g PO DAILY PRN (Reason: constipation) 4 Days Qty: 136 0RF nicotine 21 mg/24 hr patch 24 hour 1 patch transdermal DAILY Qty: 7 0RF melatonin 3 mg capsule 3 mg PO HS Qty: 20 0RF guaifenesin [Mucinex] 600 mg tablet extended release 12hr 600 mg PO BID Qty: 10 0RF calcium acetate(phosphat bind) 667 mg tablet 1,334 mg PO .QAC 2 Days Qty: 30 0RF allopurinol 300 mg tablet 300 mg PO DAILY Qty: 14 0RF benzonatate 100 mg capsule 100 mg PO BID PRN (Reason: cough) Qty: 20 0RF Incruse Ellipta 62.5 mcg/actuation blister with device 1 inh inhalation DAILY Qty: 7 0RF Continued rosuvastatin 40 mg tablet 40 mg PO QPM Qty: 90 3RF Rx Instructions: every evening tamsulosin 0.4 mg capsule 0.8 mg PO QPM Qty: 180 3RF sildenafil (pulm.hypertension) [Revatio] 20 mg tablet 40 mg PO 3XWK Qty: 90 2RF finasteride 5 mg tablet 5 mg PO DAILY Qty: 90 2RF betamethasone dipropionate 0.05 % cream 1 applic topical BID PRN (Reason: skin irritation) Qty: 45 0RF carvedilol 25 mg tablet 25 mg PO BID Qty: 60 2RF Rx Instructions: must administer with a meal/food triamcinolone acetonide 0.1 % cream 1 applic topical BID PRN (Reason: Dry scaling areas) Qty: 15 0RF fexofenadine 180 mg tablet 180 mg PO QAM PRN (Reason: Allergies) lansoprazole 30 mg capsule,delayed release(DR/EC) 30 mg PO DAILY PRN (Reason: heart burn) fluticasone propion-salmeterol 55-14 mcg/actuation aerosol powdr breath activated 1 inh INHALATION BID Discontinued lisinopril 40 mg tablet 40 mg PO QAM Qty: 90 3RF nifedipine 60 mg tablet extended release 60 mg PO BID Qty: 30 2RF empagliflozin 25 mg tablet 25 mg PO QAM Qty: 90 3RF meloxicam 15 mg tablet 15 mg PO DAILY PRN (Reason: Pain) Discharge Orders: Discharge Order (Routine); Ordered 07/21/24 Ordered By: Terri Rahman Admission Data Admit Date/Time: 07/12/24 15:59 Attending Provider: Coy Kapoor Admit Provider: Coy Kapoor Primary Care Provider: Harinder Cardenas Other Providers: Trevin Castillo; Beckie Gonzalez; Monique Werner; Carlo Hastings; Preethi Pires; Daniel Dunn; Ellen Dunbar; Riki Gallegos Other Interventions: Discharge Summary Assessment (RN) Last Done: 07/21/24 16:56 Supervising Physician Co-Signing Physician Notes I personally examined the patient and verified all funes points of history and exam, discussed case, and agree with decision making with Dr Rahman Oral intake improving. Had a decent sized bowel movement. Feels like he will do okay at home. Would very much like to get out of the hospital. Answered all questions from patient, , and son (who was present via phone). Appreciate nephrology input. Vitals noted, in general he is awake and alert pleasant no distress. HEENT normocephalic atraumatic mucous membranes moist. Breathing unlabored no accessory muscle use good effort. Skin without rashes pallor or icterus. He was 87-88% on room air whenever I saw him. New diagnosis lung cancerhad first round of chemodue to tumor lysis/AVE. As it relates to the tumor lysis and AVE, he will have ongoing dialysis as an outpatient starting tomorrow. Outpatient oncology follow-up, ongoing chemo. We have discussed multiple times the critical importance of nutritiondiscussed that his bloating/etc. was almost certainly due to constipation given that it has improved with a bowel movementand discussed how to manage this at home. Also again recommended close and ongoing follow-up with his PCP to be able to focus on pain/nausea/nutrition/etc. with the PCP, with oncology focused predominantly on the cancer treatment. Hypoxia due to likely to both the mass and underlying COPDand does appear to benefit from oxygen with ambulation which was set up prior to discharge. Otherwise as above. Resident Activity Tracking Resident Involvement: Resident Care Provided Care Provided: Adult [facility] Medicine
--- NOTE | 2024-07-21 17:54 | Billing Data ---
Date of Service July 21, 2024 Coding Level of Care Code 87534 IN/OBS DISCH 30 MIN/LESS
[2024-07-24] MEDS ORDERED: ceFAZolin 2000MG 2,000 MG/15 ML SYR IV ONE (06:00)
== END 2024-07-21 18:33 | disposition home or self-care (01) | DRG 180 ==
LOC: ED 10:14 → EDINP 15:59 → SUATTDRO 15:59 → 2E 18:08 → 3E 07-13 11:57

== ENCOUNTER 2024-07-25 14:46 | Inpatient (IN) ==
--- NOTE | 2024-07-25 15:49 | Emergency Department Note ---
Impression & Plan Fever and neutropenia, Pneumonia, Thrombocytopenia, Anemia ED Provider Note NAME: EVELINA HUGHES AGE: 69 SEX: M : 1955 ARRIVES VIA: Walk-In INFORMANT: Patient, ED PROVIDER(S): Nicolas Bazzi DO CHIEF COMPLAINT: Fever HPI: Patient is a 69-year-old male who presented to the emergency department for evaluation of fever. The patient was feeling well until the last few days. The patient denies having chest pain but he has had a cough which is productive for sputum. He denies having any abdominal pain or vomiting. He was recently diagnosed with renal failure as well as cancer. He does have a port in his right chest was placed recently and he had dialysis yesterday. The patient denies having any dysuria. He denies having any severe back pain. ROS: See above HPI for pertinent positives & negatives. A total of 10 systems reviewed and were otherwise negative. PAST MEDICAL HISTORY: See Below PAST SURGICAL HISTORY: See Below FAMILY HISTORY: See Below SOCIAL HISTORY: See Below HOME MEDICATIONS: See Below ALLERGIES: See Below VITALS: See Below PHYSICAL EXAMINATION: GENERAL: Patient is awake alert in no acute distress patient is resting comfortably and showing no signs of anxiety EYES: The conjunctivae are clear. The pupils are round and reactive. EARS, NOSE, MOUTH AND THROAT: The nose is without any evidence of any deformity. NECK: The neck is nontender and supple. RESPIRATORY: Breath sounds are noted with rales in both lower lung lombardi. There was mild tachypnea noted. CARDIOVASCULAR: Regular rate and rhythm noted there no murmurs rubs or gallops normal S1 normal S2. GASTROINTESTINAL: The abdomen is soft. There was firmness to the liver in the right upper quadrant. MUSCULOSKELETAL/EXTREMITIES: There is no evidence of gross deformity full range of motion is noted in the hips and shoulders. SKIN: Pedal edema was noted bilaterally. Skin was warm and dry. NEUROLOGIC: Patient is awake alert and oriented x3 MEDICAL DECISION MAKING: The patient is a 69-year-old male who has a history of recently diagnosed cancer. The patient came to the emergency department today because of fever. The patient has not been feeling well. He says a productive cough. History and physical exam appear to be consistent with pneumonia. He was treated with IV antibiotics in emergency department. I discussed the patient's laboratory and radiographic studies with him. He was found to be neutropenic as well. Given his findings I am concerned the patient may be at risk for severe infection. [facility] agreed to evaluate the patient in the emergency department for further management and disposition. Triage Nursing notes reviewed. Prior medical records reviewed Vital Signs: reviewed and remarkable for blood pressure and fever. Differential diagnosis: Viral syndrome, otitis, pharyngitis, pneumonia, influenza, meningitis, urinary tract infection, sepsis, bacteremia, as well as other pathologies. ER treatment provided: See below Diagnostics interpreted by me: ECG: EKG was obtained in the emergency department. My interpretation is normal sinus rhythm at 77 bpm. Right bundle branch block pattern was noted. There was no ectopy. This was compared to a tracing from July 13, 2024. No changes were noted. Cardiac Monitoring: An order was placed for continuous cardiac monitoring. The monitor shows a rate of 76 bpm with sinus rhythm. Laboratory studies: As stated above and show below. Imaging studies: See below. Radiographic imaging was reviewed by myself Consultation(s): I discussed this case with Dr. Paris [facility] ED COURSE: Procedures: none Critical Care: I have personally spent greater than 45 minutes of critical care time in the direct management of this patient. This includes bedside care, interpretation of diagnostic studies, and testing, discussion with consultants, patient, and family members, and other required patient management activities. This 45 minutes is in excess of all separately billable procedures. Past Med/Surg History Problem List (Updated 07/25/24 @ 18:12 by Sudhir Rendon PA-C) Acute renal failure Sepsis Pancytopenia Neutropenic fever Tumor lysis syndrome Acute kidney injury Pneumonia Small cell lung cancer Lesion of lung Metastasis to liver LAD (lymphadenopathy), mediastinal Lung mass Chronic bronchitis COPD with emphysema Pulmonary hypertension Transaminitis (Acute) Acute hypokalemia (Acute) Metastatic primary lung cancer (Acute) Diabetes Osteoarthritis Chronic Kidney Disease Hyperlipidemia BPH (benign prostatic hyperplasia) Tobacco dependence due to cigarettes Hypertension Medical History Full thickness rotator cuff tear History of COVID-2019, mild symptoms Surgical History History of arthroscopy of right shoulder 18 years ago History of colonoscopy Hx of LASIK bilateral Family History Son Kidney disease Social History Smoking Status: Former smoker Tobacco Type: Cigarettes Age Started Using Tobacco: 19; packs per day: 1.5; Cigarettes Per Day: 30; Second Hand Exposure: Yes (childhood); Do You Dip or Chew Tobacco: No; Hx Alcohol Use: No Hx Substance Use: No Preferred Language: Maldivian Communication Ability: Effective Bottle House Quality Control Technician Required: No Beliefs That Will Affect Care: Spiritual marital status: marital status details: but still living together Current Living Situation: Spouse current occupational status: retired How many Children do You have: 2 Feels Safe at Home: Yes Childhood Exposure to Second-Hand Smoke: Yes Diet: regular caffeine: Yes Dental Care, Regularly: Yes Physical Activity Frequency: Other Physical Activity Frequency Comment: Outside work Seatbelt Use: sometimes Sunscreen Use: Yes Assistive Devices: None Allergies Allergies Allergy/AdvReac Type Severity Reaction Status Date / Time No Known Allergies Allergy Verified 05/14/24 10:40 Home Meds Home Medications Medication Instructions Recorded Confirmed lansoprazole 30 mg capsule,delayed 30 mg PO DAILY PRN heart burn 07/12/24 07/25/24 release calcium acetate 667 mg tablet 1,334 mg PO .with meals 07/23/24 07/25/24 olanzapine 2.5 mg tablet 2.5 mg PO DIRECTED 07/25/24 07/25/24 ondansetron 8 mg disintegrating 8 mg PO DIRECTED PRN n/v 07/25/24 07/25/24 tablet prochlorperazine maleate 10 mg 10 mg PO DIRECTED PRN n/v 07/25/24 07/25/24 tablet Previous Rx's Medication Instructions Recorded betamethasone dipropionate 0.05 % 1 applic topical BID PRN skin 08/03/21 topical cream irritation #45 grams carvedilol 25 mg tablet 25 mg PO BID #60 tabs 08/03/21 triamcinolone acetonide 0.1 % 1 applic topical BID PRN Dry 08/03/21 topical cream scaling areas #15 grams finasteride 5 mg tablet 5 mg PO DAILY #90 tabs 08/13/23 sildenafil (pulm.hypertension) 20 40 mg (2 x 20 mg) PO 3XWK #90 tabs 04/01/24 mg tablet (Revatio) allopurinol 300 mg tablet 300 mg PO DAILY #14 tabs 07/21/24 benzonatate 100 mg capsule 100 mg PO BID PRN cough #20 caps 07/21/24 blood-glucose meter (OneTouch #1 ea 07/21/24 Verio Flex Start kit) guaifenesin 600 mg tablet, 600 mg PO BID #10 tabs 07/21/24 extended release 12 hr (Mucinex) melatonin 3 mg capsule 3 mg PO HS #20 caps 07/21/24 ondansetron 4 mg disintegrating 4 mg PO BID PRN nausea and 07/21/24 tablet vomiting #14 tabs umeclidinium 62.5 mcg/actuation 1 inh inhalation DAILY #7 ea 07/21/24 blister powder for inhalation (Incruse Ellipta) blood-glucose meter (OneTouch #1 ea 07/22/24 Verio Flex Start kit) rosuvastatin 10 mg tablet 10 mg PO QPM #90 tabs 07/22/24 trazodone 50 mg tablet 50 mg PO .qhs #30 tabs 07/22/24 Results & Data (ED) Vital Signs Vital Signs - 24 hr 07/25/24 14:59 07/25/24 15:40 07/25/24 15:40 Temperature 37.8 C H Temperature Source Temporal Artery Scan Pulse Rate 76 77 Pulse Rate from SpO2 Sensor Pulse Rhythm Regular Regular Pulse Strength Normal Respiratory Rate 20 23 Respiratory Effort / Characteristics Non-Labored Spontaneous Respiratory Depth Normal Respiratory Pattern Regular Blood Pressure 168/74 H Blood Pressure Mean 105 Blood Pressure Position Sitting Pulse Oximetry 92 93 Oxygen Delivery Method Room Air Room Air Room Air Sepsis Recent Fever Within 48 Hours No Sepsis New/Unexplained Change in Mental Status No Sepsis Action Taken by Nursing No Action Required 07/25/24 15:42 07/25/24 15:45 07/25/24 16:00 Temperature Temperature Source Pulse Rate 79 76 77 Pulse Rate from SpO2 Sensor 78 76 Pulse Rhythm Regular Pulse Strength Respiratory Rate 21 22 22 Respiratory Effort / Characteristics Respiratory Depth Respiratory Pattern Blood Pressure 167/89 H 171/81 H Blood Pressure Mean 115 111 Blood Pressure Position Pulse Oximetry 92 93 92 Oxygen Delivery Method Room Air Room Air Room Air Sepsis Recent Fever Within 48 Hours Sepsis New/Unexplained Change in Mental Status Sepsis Action Taken by Nursing 07/25/24 16:03 Temperature Temperature Source Pulse Rate 76 Pulse Rate from SpO2 Sensor Pulse Rhythm Pulse Strength Respiratory Rate Respiratory Effort / Characteristics Respiratory Depth Respiratory Pattern Blood Pressure Blood Pressure Mean Blood Pressure Position Pulse Oximetry Oxygen Delivery Method Sepsis Recent Fever Within 48 Hours Sepsis New/Unexplained Change in Mental Status Sepsis Action Taken by [facility] Medications Current Medication List: was personally reviewed by me Laboratory Data Attestation: I reviewed the patient's lab results. 07/25/24 17:05 07/25/24 16:00 Lab Results 07/25/24 07/25/24 07/25/24 Range/Units 15:45 15:51 16:00 WBC Cancelled RBC Cancelled Hgb Cancelled Hct Cancelled MCV Cancelled MCH Cancelled MCHC Cancelled RDW Std Deviation Cancelled RDW Coeff of Iraida Cancelled Plt Count Cancelled MPV Cancelled Immature Gran % (Auto) Cancelled Neut % (Auto) Cancelled Lymph % (Auto) Cancelled Mingo % (Auto) Cancelled Eos % (Auto) Cancelled Baso % (Auto) Cancelled Neut # (Auto) Cancelled Lymph # (Auto) Cancelled Mingo # (Auto) Cancelled Eos # (Auto) Cancelled Baso # (Auto) Cancelled Immature Gran # (Auto) Cancelled Absolute Nucleated RBC Cancelled Nucleated RBC % (auto) Cancelled Neutrophils % (Manual) Cancelled Band Neutrophils % Cancelled Lymphocytes % (Manual) Cancelled Prolymphocyte % Cancelled Reactive Lymphs % (Man) Cancelled Monocytes % (Manual) Cancelled Eosinophils % (Manual) Cancelled Basophils % (Manual) Cancelled Metamyelocytes % (Man) Cancelled Myelocytes % (Man) Cancelled Promyelocytes % (Man) Cancelled Blast Cells % (Manual) Cancelled Plasma Cell % (Manual) Cancelled Other Cells % Cancelled Nucleated RBC % Cancelled Neutrophils # (Manual) Cancelled Band Neutrophils # Cancelled Total Absolute Neuts Cancelled Lymphocytes # (Manual) Cancelled Prolymphocyte # Cancelled Reactive Lymphs # Cancelled Total Abs Lymphocytes Cancelled Monocytes # (Manual) Cancelled Eosinophils # (Manual) Cancelled Basophils # (Manual) Cancelled Metamyelocytes # (Man) Cancelled Myelocytes # (Manual) Cancelled Promyelocytes # (Man) Cancelled Blast Cells # (Man) Cancelled Plasma Cell # (Manual) Cancelled Other Cells # Cancelled Nucleated RBCs # (Man) Cancelled Hypersegmented Neuts Cancelled Hyposegmented Neuts Cancelled Hypogranular Neuts Cancelled Large Granular Lymphs Cancelled # Lrg Granular Lymphs Cancelled Hairy Cells Cancelled Smudge Cells Cancelled Toxic Granulation Cancelled Toxic Vacuolation Cancelled Dohle Bodies Cancelled Grecia Rods Cancelled Platelet Estimate Cancelled Hypogranular Platelets Cancelled Giant Platelets Cancelled Platelet Satelliting Cancelled RBC Morphology Cancelled Polychromasia Cancelled Hypochromasia Cancelled Poikilocytosis Cancelled Basophilic Stippling Cancelled Anisocytosis Cancelled Microcytosis Cancelled Macrocytosis Cancelled Spherocytes Cancelled Pappenheimer Bodies Cancelled Sickle Cells Cancelled Target Cells Cancelled Tear Drop Cells Cancelled Ovalocytes Cancelled Stomatocytes Cancelled Friedman-Lewellen Bodies Cancelled Echinocytes Cancelled Acanthocytes (Spur) Cancelled Rouleaux Cancelled RBC Agglutinates Cancelled Schistocytes Cancelled Sezary Cell Cancelled PT 11.2 (9.0-12.0) Seconds INR 1.0 (0.9-1.1) APTT 29 (21-31) Seconds PTT Ratio 1.1 VBG pH (7.36-7.41) VBG pCO2 (38-50) mmHg VBG pO2 mmHg VBG HCO3 mmol/L VBG O2 Saturation % VBG Base Excess mEq/L Sodium 139 (136-145) mmol/L Potassium (3.5-5.1) mmol/L Chloride (98-107) mmol/L Carbon Dioxide (21-32) mmol/L Anion Gap (3-11) BUN (6-23) mg/dl Creatinine (0.6-1.4) mg/dl Est Cr Clr Drug Dosing ml/min eGFR BUN/Creatinine Ratio (10-20) Glucose (70-99(Fasting)) mg/dl Lactate 1.7 (0.4-2.0) mmol/L Calcium (8.6-10.3) mg/dl Magnesium (1.7-2.4) mg/dl Total Bilirubin (0.2-1.0) mg/dl Direct Bilirubin (0-0.2) mg/dl AST (13-39) U/L ALT (7-52) U/L Alkaline Phosphatase (34-104) U/L Troponin I High Sens (0-20) pg/ml Total Protein (6.0-8.3) gm/dl Albumin (3.4-5.0) gm/dl Globulin (2.5-4.0) gm/dl Albumin/Globulin Ratio (0.9-2) Procalcitonin (0-0.5) ng/ml SARS-CoV-2 (PCR) NEGATIVE (Negative) Influenza Type A (PCR) Negative (Neg) Influenza Type B (PCR) Negative (Neg) RSV (RT-PCR) Negative (Neg) Blood Parasites ID 07/25/24 07/25/24 07/25/24 Range/Units 16:00 16:00 16:00 WBC RBC Hgb Hct MCV MCH MCHC RDW Std Deviation RDW Coeff of Iraida Plt Count MPV Immature Gran % (Auto) Neut % (Auto) Lymph % (Auto) Mingo % (Auto) Eos % (Auto) Baso % (Auto) Neut # (Auto) Lymph # (Auto) Mingo # (Auto) Eos # (Auto) Baso # (Auto) Immature Gran # (Auto) Absolute Nucleated RBC Nucleated RBC % (auto) Neutrophils % (Manual) Band Neutrophils % Lymphocytes % (Manual) Prolymphocyte % Reactive Lymphs % (Man) Monocytes % (Manual) Eosinophils % (Manual) Basophils % (Manual) Metamyelocytes % (Man) Myelocytes % (Man) Promyelocytes % (Man) Blast Cells % (Manual) Plasma Cell % (Manual) Other Cells % Nucleated RBC % Neutrophils # (Manual) Band Neutrophils # Total Absolute Neuts Lymphocytes # (Manual) Prolymphocyte # Reactive Lymphs # Total Abs Lymphocytes Monocytes # (Manual) Eosinophils # (Manual) Basophils # (Manual) Metamyelocytes # (Man) Myelocytes # (Manual) Promyelocytes # (Man) Blast Cells # (Man) Plasma Cell # (Manual) Other Cells # Nucleated RBCs # (Man) Hypersegmented Neuts Hyposegmented Neuts Hypogranular Neuts Large Granular Lymphs # Lrg Granular Lymphs Hairy Cells Smudge Cells Toxic Granulation Toxic Vacuolation Dohle Bodies Grecia Rods Platelet Estimate Hypogranular Platelets Giant Platelets Platelet Satelliting RBC Morphology Polychromasia Hypochromasia Poikilocytosis Basophilic Stippling Anisocytosis Microcytosis Macrocytosis Spherocytes Pappenheimer Bodies Sickle Cells Target Cells Tear Drop Cells Ovalocytes Stomatocytes Friedman-Lewellen Bodies Echinocytes Acanthocytes (Spur) Rouleaux RBC Agglutinates Schistocytes Sezary Cell PT (9.0-12.0) Seconds INR (0.9-1.1) APTT (21-31) Seconds PTT Ratio VBG pH (7.36-7.41) VBG pCO2 (38-50) mmHg VBG pO2 mmHg VBG HCO3 mmol/L VBG O2 Saturation % VBG Base Excess mEq/L Sodium Cancelled (136-145) mmol/L Potassium 4.2 Cancelled (3.5-5.1) mmol/L Chloride 101 Cancelled (98-107) mmol/L Carbon Dioxide 30 (21-32) mmol/L Anion Gap (3-11) BUN (6-23) mg/dl Creatinine (0.6-1.4) mg/dl Est Cr Clr Drug Dosing ml/min eGFR BUN/Creatinine Ratio (10-20) Glucose (70-99(Fasting)) mg/dl Lactate (0.4-2.0) mmol/L Calcium (8.6-10.3) mg/dl Magnesium (1.7-2.4) mg/dl Total Bilirubin (0.2-1.0) mg/dl Direct Bilirubin (0-0.2) mg/dl AST (13-39) U/L ALT (7-52) U/L Alkaline Phosphatase (34-104) U/L Troponin I High Sens (0-20) pg/ml Total Protein (6.0-8.3) gm/dl Albumin (3.4-5.0) gm/dl Globulin (2.5-4.0) gm/dl Albumin/Globulin Ratio (0.9-2) Procalcitonin (0-0.5) ng/ml SARS-CoV-2 (PCR) (Negative) Influenza Type A (PCR) (Neg) Influenza Type B (PCR) (Neg) RSV (RT-PCR) (Neg) Blood Parasites ID 07/25/24 07/25/24 07/25/24 Range/Units 16:00 16:00 16:00 WBC RBC Hgb Hct MCV MCH MCHC RDW Std Deviation RDW Coeff of Iraida Plt Count MPV Immature Gran % (Auto) Neut % (Auto) Lymph % (Auto) Mingo % (Auto) Eos % (Auto) Baso % (Auto) Neut # (Auto) Lymph # (Auto) Mingo # (Auto) Eos # (Auto) Baso # (Auto) Immature Gran # (Auto) Absolute Nucleated RBC Nucleated RBC % (auto) Neutrophils % (Manual) Band Neutrophils % Lymphocytes % (Manual) Prolymphocyte % Reactive Lymphs % (Man) Monocytes % (Manual) Eosinophils % (Manual) Basophils % (Manual) Metamyelocytes % (Man) Myelocytes % (Man) Promyelocytes % (Man) Blast Cells % (Manual) Plasma Cell % (Manual) Other Cells % Nucleated RBC % Neutrophils # (Manual) Band Neutrophils # Total Absolute Neuts Lymphocytes # (Manual) Prolymphocyte # Reactive Lymphs # Total Abs Lymphocytes Monocytes # (Manual) Eosinophils # (Manual) Basophils # (Manual) Metamyelocytes # (Man) Myelocytes # (Manual) Promyelocytes # (Man) Blast Cells # (Man) Plasma Cell # (Manual) Other Cells # Nucleated RBCs # (Man) Hypersegmented Neuts Hyposegmented Neuts Hypogranular Neuts Large Granular Lymphs # Lrg Granular Lymphs Hairy Cells Smudge Cells Toxic Granulation Toxic Vacuolation Dohle Bodies Grecia Rods Platelet Estimate Hypogranular Platelets Giant Platelets Platelet Satelliting RBC Morphology Polychromasia Hypochromasia Poikilocytosis Basophilic Stippling Anisocytosis Microcytosis Macrocytosis Spherocytes Pappenheimer Bodies Sickle Cells Target Cells Tear Drop Cells Ovalocytes Stomatocytes Friedman-Lewellen Bodies Echinocytes Acanthocytes (Spur) Rouleaux RBC Agglutinates Schistocytes Sezary Cell PT (9.0-12.0) Seconds INR (0.9-1.1) APTT (21-31) Seconds PTT Ratio VBG pH (7.36-7.41) VBG pCO2 (38-50) mmHg VBG pO2 mmHg VBG HCO3 mmol/L VBG O2 Saturation % VBG Base Excess mEq/L Sodium (136-145) mmol/L Potassium (3.5-5.1) mmol/L Chloride (98-107) mmol/L Carbon Dioxide Cancelled (21-32) mmol/L Anion Gap 8 Cancelled (3-11) BUN 61 H Cancelled (6-23) mg/dl Creatinine 4.27 H (0.6-1.4) mg/dl Est Cr Clr Drug Dosing ml/min eGFR BUN/Creatinine Ratio (10-20) Glucose (70-99(Fasting)) mg/dl Lactate (0.4-2.0) mmol/L Calcium (8.6-10.3) mg/dl Magnesium (1.7-2.4) mg/dl Total Bilirubin (0.2-1.0) mg/dl Direct Bilirubin (0-0.2) mg/dl AST (13-39) U/L ALT (7-52) U/L Alkaline Phosphatase (34-104) U/L Troponin I High Sens (0-20) pg/ml Total Protein (6.0-8.3) gm/dl Albumin (3.4-5.0) gm/dl Globulin (2.5-4.0) gm/dl Albumin/Globulin Ratio (0.9-2) Procalcitonin (0-0.5) ng/ml SARS-CoV-2 (PCR) (Negative) Influenza Type A (PCR) (Neg) Influenza Type B (PCR) (Neg) RSV (RT-PCR) (Neg) Blood Parasites ID 07/25/24 07/25/24 07/25/24 Range/Units 16:00 16:00 16:00 WBC RBC Hgb Hct MCV MCH MCHC RDW Std Deviation RDW Coeff of Iraida Plt Count MPV Immature Gran % (Auto) Neut % (Auto) Lymph % (Auto) Mingo % (Auto) Eos % (Auto) Baso % (Auto) Neut # (Auto) Lymph # (Auto) Mingo # (Auto) Eos # (Auto) Baso # (Auto) Immature Gran # (Auto) Absolute Nucleated RBC Nucleated RBC % (auto) Neutrophils % (Manual) Band Neutrophils % Lymphocytes % (Manual) Prolymphocyte % Reactive Lymphs % (Man) Monocytes % (Manual) Eosinophils % (Manual) Basophils % (Manual) Metamyelocytes % (Man) Myelocytes % (Man) Promyelocytes % (Man) Blast Cells % (Manual) Plasma Cell % (Manual) Other Cells % Nucleated RBC % Neutrophils # (Manual) Band Neutrophils # Total Absolute Neuts Lymphocytes # (Manual) Prolymphocyte # Reactive Lymphs # Total Abs Lymphocytes Monocytes # (Manual) Eosinophils # (Manual) Basophils # (Manual) Metamyelocytes # (Man) Myelocytes # (Manual) Promyelocytes # (Man) Blast Cells # (Man) Plasma Cell # (Manual) Other Cells # Nucleated RBCs # (Man) Hypersegmented Neuts Hyposegmented Neuts Hypogranular Neuts Large Granular Lymphs # Lrg Granular Lymphs Hairy Cells Smudge Cells Toxic Granulation Toxic Vacuolation Dohle Bodies Grecia Rods Platelet Estimate Hypogranular Platelets Giant Platelets Platelet Satelliting RBC Morphology Polychromasia Hypochromasia Poikilocytosis Basophilic Stippling Anisocytosis Microcytosis Macrocytosis Spherocytes Pappenheimer Bodies Sickle Cells Target Cells Tear Drop Cells Ovalocytes Stomatocytes Friedman-Lewellen Bodies Echinocytes Acanthocytes (Spur) Rouleaux RBC Agglutinates Schistocytes Sezary Cell PT (9.0-12.0) Seconds INR (0.9-1.1) APTT (21-31) Seconds PTT Ratio VBG pH (7.36-7.41) VBG pCO2 (38-50) mmHg VBG pO2 mmHg VBG HCO3 mmol/L VBG O2 Saturation % VBG Base Excess mEq/L Sodium (136-145) mmol/L Potassium (3.5-5.1) mmol/L Chloride (98-107) mmol/L Carbon Dioxide (21-32) mmol/L Anion Gap (3-11) BUN (6-23) mg/dl Creatinine Cancelled (0.6-1.4) mg/dl Est Cr Clr Drug Dosing 15.6 Cancelled ml/min eGFR 14.18 Cancelled BUN/Creatinine Ratio 14.3 (10-20) Glucose (70-99(Fasting)) mg/dl Lactate (0.4-2.0) mmol/L Calcium (8.6-10.3) mg/dl Magnesium (1.7-2.4) mg/dl Total Bilirubin (0.2-1.0) mg/dl Direct Bilirubin (0-0.2) mg/dl AST (13-39) U/L ALT (7-52) U/L Alkaline Phosphatase (34-104) U/L Troponin I High Sens (0-20) pg/ml Total Protein (6.0-8.3) gm/dl Albumin (3.4-5.0) gm/dl Globulin (2.5-4.0) gm/dl Albumin/Globulin Ratio (0.9-2) Procalcitonin (0-0.5) ng/ml SARS-CoV-2 (PCR) (Negative) Influenza Type A (PCR) (Neg) Influenza Type B (PCR) (Neg) RSV (RT-PCR) (Neg) Blood Parasites ID 07/25/24 07/25/24 07/25/24 Range/Units 16:00 16:00 16:00 WBC RBC Hgb Hct MCV MCH MCHC RDW Std Deviation RDW Coeff of Iraida Plt Count MPV Immature Gran % (Auto) Neut % (Auto) Lymph % (Auto) Mingo % (Auto) Eos % (Auto) Baso % (Auto) Neut # (Auto) Lymph # (Auto) Mingo # (Auto) Eos # (Auto) Baso # (Auto) Immature Gran # (Auto) Absolute Nucleated RBC Nucleated RBC % (auto) Neutrophils % (Manual) Band Neutrophils % Lymphocytes % (Manual) Prolymphocyte % Reactive Lymphs % (Man) Monocytes % (Manual) Eosinophils % (Manual) Basophils % (Manual) Metamyelocytes % (Man) Myelocytes % (Man) Promyelocytes % (Man) Blast Cells % (Manual) Plasma Cell % (Manual) Other Cells % Nucleated RBC % Neutrophils # (Manual) Band Neutrophils # Total Absolute Neuts Lymphocytes # (Manual) Prolymphocyte # Reactive Lymphs # Total Abs Lymphocytes Monocytes # (Manual) Eosinophils # (Manual) Basophils # (Manual) Metamyelocytes # (Man) Myelocytes # (Manual) Promyelocytes # (Man) Blast Cells # (Man) Plasma Cell # (Manual) Other Cells # Nucleated RBCs # (Man) Hypersegmented Neuts Hyposegmented Neuts Hypogranular Neuts Large Granular Lymphs # Lrg Granular Lymphs Hairy Cells Smudge Cells Toxic Granulation Toxic Vacuolation Dohle Bodies Grecia Rods Platelet Estimate Hypogranular Platelets Giant Platelets Platelet Satelliting RBC Morphology Polychromasia Hypochromasia Poikilocytosis Basophilic Stippling Anisocytosis Microcytosis Macrocytosis Spherocytes Pappenheimer Bodies Sickle Cells Target Cells Tear Drop Cells Ovalocytes Stomatocytes Friedman-Lewellen Bodies Echinocytes Acanthocytes (Spur) Rouleaux RBC Agglutinates Schistocytes Sezary Cell PT (9.0-12.0) Seconds INR (0.9-1.1) APTT (21-31) Seconds PTT Ratio VBG pH (7.36-7.41) VBG pCO2 (38-50) mmHg VBG pO2 mmHg VBG HCO3 mmol/L VBG O2 Saturation % VBG Base Excess mEq/L Sodium (136-145) mmol/L Potassium (3.5-5.1) mmol/L Chloride (98-107) mmol/L Carbon Dioxide (21-32) mmol/L Anion Gap (3-11) BUN (6-23) mg/dl Creatinine (0.6-1.4) mg/dl Est Cr Clr Drug Dosing ml/min eGFR BUN/Creatinine Ratio Cancelled (10-20) Glucose 166 H Cancelled (70-99(Fasting)) mg/dl Lactate (0.4-2.0) mmol/L Calcium 7.6 L Cancelled (8.6-10.3) mg/dl Magnesium 1.7 (1.7-2.4) mg/dl Total Bilirubin (0.2-1.0) mg/dl Direct Bilirubin (0-0.2) mg/dl AST (13-39) U/L ALT (7-52) U/L Alkaline Phosphatase (34-104) U/L Troponin I High Sens (0-20) pg/ml Total Protein (6.0-8.3) gm/dl Albumin (3.4-5.0) gm/dl Globulin (2.5-4.0) gm/dl Albumin/Globulin Ratio (0.9-2) Procalcitonin (0-0.5) ng/ml SARS-CoV-2 (PCR) (Negative) Influenza Type A (PCR) (Neg) Influenza Type B (PCR) (Neg) RSV (RT-PCR) (Neg) Blood Parasites ID 07/25/24 07/25/24 07/25/24 Range/Units 16:00 16:00 16:00 WBC RBC Hgb Hct MCV MCH MCHC RDW Std Deviation RDW Coeff of Iraida Plt Count MPV Immature Gran % (Auto) Neut % (Auto) Lymph % (Auto) [place] % (Auto) Eos % (Auto) Baso % (Auto) Neut # (Auto) Lymph # (Auto) [place] # (Auto) Eos # (Auto) Baso # (Auto) Immature Gran # (Auto) Absolute Nucleated RBC Nucleated RBC % (auto) Neutrophils % (Manual) Band Neutrophils % Lymphocytes % (Manual) Prolymphocyte % Reactive Lymphs % (Man) Monocytes % (Manual) Eosinophils % (Manual) Basophils % (Manual) Metamyelocytes % (Man) Myelocytes % (Man) Promyelocytes % (Man) Blast Cells % (Manual) Plasma Cell % (Manual) Other Cells % Nucleated RBC % Neutrophils # (Manual) Band Neutrophils # Total Absolute Neuts Lymphocytes # (Manual) Prolymphocyte # Reactive Lymphs # Total Abs Lymphocytes Monocytes # (Manual) Eosinophils # (Manual) Basophils # (Manual) Metamyelocytes # (Man) Myelocytes # (Manual) Promyelocytes # (Man) Blast Cells # (Man) Plasma Cell # (Manual) Other Cells # Nucleated RBCs # (Man) Hypersegmented Neuts Hyposegmented Neuts Hypogranular Neuts Large Granular Lymphs # Lrg Granular Lymphs Hairy Cells Smudge Cells Toxic Granulation Toxic Vacuolation Dohle Bodies Grecia Rods Platelet Estimate Hypogranular Platelets Giant Platelets Platelet Satelliting RBC Morphology Polychromasia Hypochromasia Poikilocytosis Basophilic Stippling Anisocytosis Microcytosis Macrocytosis Spherocytes Pappenheimer Bodies Sickle Cells Target Cells Tear Drop Cells Ovalocytes Stomatocytes Friedman-Lewellen Bodies Echinocytes Acanthocytes (Spur) Rouleaux RBC Agglutinates Schistocytes Sezary Cell PT (9.0-12.0) Seconds INR (0.9-1.1) APTT (21-31) Seconds PTT Ratio VBG pH (7.36-7.41) VBG pCO2 (38-50) mmHg VBG pO2 mmHg VBG HCO3 mmol/L VBG O2 Saturation % VBG Base Excess mEq/L Sodium (136-145) mmol/L Potassium (3.5-5.1) mmol/L Chloride (98-107) mmol/L Carbon Dioxide (21-32) mmol/L Anion Gap (3-11) BUN (6-23) mg/dl Creatinine (0.6-1.4) mg/dl Est Cr Clr Drug Dosing ml/min eGFR BUN/Creatinine Ratio (10-20) Glucose (70-99(Fasting)) mg/dl Lactate (0.4-2.0) mmol/L Calcium (8.6-10.3) mg/dl Magnesium Cancelled (1.7-2.4) mg/dl Total Bilirubin 1.3 H Cancelled (0.2-1.0) mg/dl Direct Bilirubin 0.6 H Cancelled (0-0.2) mg/dl AST 119 H (13-39) U/L ALT (7-52) U/L Alkaline Phosphatase (34-104) U/L Troponin I High Sens (0-20) pg/ml Total Protein (6.0-8.3) gm/dl Albumin (3.4-5.0) gm/dl Globulin (2.5-4.0) gm/dl Albumin/Globulin Ratio (0.9-2) Procalcitonin (0-0.5) ng/ml SARS-CoV-2 (PCR) (Negative) Influenza Type A (PCR) (Neg) Influenza Type B (PCR) (Neg) RSV (RT-PCR) (Neg) Blood Parasites ID 07/25/24 07/25/24 07/25/24 Range/Units 16:00 16:00 16:00 WBC RBC Hgb Hct MCV MCH MCHC RDW Std Deviation RDW Coeff of [place] Plt Count MPV Immature Gran % (Auto) Neut % (Auto) Lymph % (Auto) [place] % (Auto) Eos % (Auto) Baso % (Auto) Neut # (Auto) Lymph # (Auto) [place] # (Auto) Eos # (Auto) Baso # (Auto) Immature Gran # (Auto) Absolute Nucleated RBC Nucleated RBC % (auto) Neutrophils % (Manual) Band Neutrophils % Lymphocytes % (Manual) Prolymphocyte % Reactive Lymphs % (Man) Monocytes % (Manual) Eosinophils % (Manual) Basophils % (Manual) Metamyelocytes % (Man) Myelocytes % (Man) Promyelocytes % (Man) Blast Cells % (Manual) Plasma Cell % (Manual) Other Cells % Nucleated RBC % Neutrophils # (Manual) Band Neutrophils # Total Absolute Neuts Lymphocytes # (Manual) Prolymphocyte # Reactive Lymphs # Total Abs Lymphocytes Monocytes # (Manual) Eosinophils # (Manual) Basophils # (Manual) Metamyelocytes # (Man) Myelocytes # (Manual) Promyelocytes # (Man) Blast Cells # (Man) Plasma Cell # (Manual) Other Cells # Nucleated RBCs # (Man) Hypersegmented Neuts Hyposegmented Neuts Hypogranular Neuts Large Granular Lymphs # Lrg Granular Lymphs Hairy Cells Smudge Cells Toxic Granulation Toxic Vacuolation Dohle Bodies Grecia Rods Platelet Estimate Hypogranular Platelets Giant Platelets Platelet Satelliting RBC Morphology Polychromasia Hypochromasia Poikilocytosis Basophilic Stippling Anisocytosis Microcytosis Macrocytosis Spherocytes Pappenheimer Bodies Sickle Cells Target Cells Tear Drop Cells Ovalocytes Stomatocytes Friedman-Lewellen Bodies Echinocytes Acanthocytes (Spur) Rouleaux RBC Agglutinates Schistocytes Sezary Cell PT (9.0-12.0) Seconds INR (0.9-1.1) APTT (21-31) Seconds PTT Ratio VBG pH (7.36-7.41) VBG pCO2 (38-50) mmHg VBG pO2 mmHg VBG HCO3 mmol/L VBG O2 Saturation % VBG Base Excess mEq/L Sodium (136-145) mmol/L Potassium (3.5-5.1) mmol/L Chloride (98-107) mmol/L Carbon Dioxide (21-32) mmol/L Anion Gap (3-11) BUN (6-23) mg/dl Creatinine (0.6-1.4) mg/dl Est Cr Clr Drug Dosing ml/min eGFR BUN/Creatinine Ratio (10-20) Glucose (70-99(Fasting)) mg/dl Lactate (0.4-2.0) mmol/L Calcium (8.6-10.3) mg/dl Magnesium (1.7-2.4) mg/dl Total Bilirubin (0.2-1.0) mg/dl Direct Bilirubin (0-0.2) mg/dl AST Cancelled (13-39) U/L ALT 79 H Cancelled (7-52) U/L Alkaline Phosphatase 530 H Cancelled (34-104) U/L Troponin I High Sens 61.6 H* (0-20) pg/ml Total Protein (6.0-8.3) gm/dl Albumin (3.4-5.0) gm/dl Globulin (2.5-4.0) gm/dl Albumin/Globulin Ratio (0.9-2) Procalcitonin (0-0.5) ng/ml SARS-CoV-2 (PCR) (Negative) Influenza Type A (PCR) (Neg) Influenza Type B (PCR) (Neg) RSV (RT-PCR) (Neg) Blood Parasites ID 07/25/24 07/25/24 07/25/24 Range/Units 16:00 16:00 16:00 WBC RBC Hgb Hct MCV MCH MCHC RDW Std Deviation RDW Coeff of [place] Plt Count MPV Immature Gran % (Auto) Neut % (Auto) Lymph % (Auto) [place] % (Auto) Eos % (Auto) Baso % (Auto) Neut # (Auto) Lymph # (Auto) [place] # (Auto) Eos # (Auto) Baso # (Auto) Immature Gran # (Auto) Absolute Nucleated RBC Nucleated RBC % (auto) Neutrophils % (Manual) Band Neutrophils % Lymphocytes % (Manual) Prolymphocyte % Reactive Lymphs % (Man) Monocytes % (Manual) Eosinophils % (Manual) Basophils % (Manual) Metamyelocytes % (Man) Myelocytes % (Man) Promyelocytes % (Man) Blast Cells % (Manual) Plasma Cell % (Manual) Other Cells % Nucleated RBC % Neutrophils # (Manual) Band Neutrophils # Total Absolute Neuts Lymphocytes # (Manual) Prolymphocyte # Reactive Lymphs # Total Abs Lymphocytes Monocytes # (Manual) Eosinophils # (Manual) Basophils # (Manual) Metamyelocytes # (Man) Myelocytes # (Manual) Promyelocytes # (Man) Blast Cells # (Man) Plasma Cell # (Manual) Other Cells # Nucleated RBCs # (Man) Hypersegmented Neuts Hyposegmented Neuts Hypogranular Neuts Large Granular Lymphs # Lrg Granular Lymphs Hairy Cells Smudge Cells Toxic Granulation Toxic Vacuolation Dohle Bodies Grecia Rods Platelet Estimate Hypogranular Platelets Giant Platelets Platelet Satelliting RBC Morphology Polychromasia Hypochromasia Poikilocytosis Basophilic Stippling Anisocytosis Microcytosis Macrocytosis Spherocytes Pappenheimer Bodies Sickle Cells Target Cells Tear Drop Cells Ovalocytes Stomatocytes Friedman-Lewellen Bodies Echinocytes Acanthocytes (Spur) Rouleaux RBC Agglutinates Schistocytes Sezary Cell PT (9.0-12.0) Seconds INR (0.9-1.1) APTT (21-31) Seconds PTT Ratio VBG pH (7.36-7.41) VBG pCO2 (38-50) mmHg VBG pO2 mmHg VBG HCO3 mmol/L VBG O2 Saturation % VBG Base Excess mEq/L Sodium (136-145) mmol/L Potassium (3.5-5.1) mmol/L Chloride (98-107) mmol/L Carbon Dioxide (21-32) mmol/L Anion Gap (3-11) BUN (6-23) mg/dl Creatinine (0.6-1.4) mg/dl Est Cr Clr Drug Dosing ml/min eGFR BUN/Creatinine Ratio (10-20) Glucose (70-99(Fasting)) mg/dl Lactate (0.4-2.0) mmol/L Calcium (8.6-10.3) mg/dl Magnesium (1.7-2.4) mg/dl Total Bilirubin (0.2-1.0) mg/dl Direct Bilirubin (0-0.2) mg/dl AST (13-39) U/L ALT (7-52) U/L Alkaline Phosphatase (34-104) U/L Troponin I High Sens Cancelled (0-20) pg/ml Total Protein 5.1 L Cancelled (6.0-8.3) gm/dl Albumin 2.8 L Cancelled (3.4-5.0) gm/dl Globulin 2.3 L (2.5-4.0) gm/dl Albumin/Globulin Ratio 1.2 (0.9-2) Procalcitonin 99.90 H (0-0.5) ng/ml SARS-CoV-2 (PCR) (Negative) Influenza Type A (PCR) (Neg) Influenza Type B (PCR) (Neg) RSV (RT-PCR) (Neg) Blood Parasites ID Cancelled 07/25/24 07/25/24 Range/Units 16:17 17:05 WBC 0.60 L* RBC 3.06 L Hgb 9.0 L Hct 27.6 L MCV 90.2 MCH 29.4 MCHC 32.6 RDW Std Deviation 48.5 H RDW Coeff of [place] 14.6 H Plt Count 18 L* MPV 11.1 Immature Gran % (Auto) Neut % (Auto) Lymph % (Auto) [place] % (Auto) Eos % (Auto) Baso % (Auto) Neut # (Auto) Lymph # (Auto) [place] # (Auto) Eos # (Auto) Baso # (Auto) Immature Gran # (Auto) Absolute Nucleated RBC Nucleated RBC % (auto) Neutrophils % (Manual) 15 Band Neutrophils % Lymphocytes % (Manual) 81 Prolymphocyte % Reactive Lymphs % (Man) Monocytes % (Manual) 1 Eosinophils % (Manual) 3 Basophils % (Manual) Metamyelocytes % (Man) Myelocytes % (Man) Promyelocytes % (Man) Blast Cells % (Manual) Plasma Cell % (Manual) Other Cells % Nucleated RBC % Neutrophils # (Manual) 0.09 L Band Neutrophils # Total Absolute Neuts 0.09 L* Lymphocytes # (Manual) 0.49 L Prolymphocyte # Reactive Lymphs # Total Abs Lymphocytes 0.49 L Monocytes # (Manual) 0.01 L Eosinophils # (Manual) 0.02 Basophils # (Manual) Metamyelocytes # (Man) Myelocytes # (Manual) Promyelocytes # (Man) Blast Cells # (Man) Plasma Cell # (Manual) Other Cells # Nucleated RBCs # (Man) Hypersegmented Neuts Hyposegmented Neuts Hypogranular Neuts Large Granular Lymphs # Lrg Granular Lymphs Hairy Cells Smudge Cells Toxic Granulation Toxic Vacuolation Dohle Bodies Grecia Rods Platelet Estimate Hypogranular Platelets Giant Platelets Platelet Satelliting RBC Morphology Unremarkable Polychromasia Hypochromasia Poikilocytosis Basophilic Stippling Anisocytosis Microcytosis Macrocytosis Spherocytes Pappenheimer Bodies Sickle Cells Target Cells Tear Drop Cells Ovalocytes Stomatocytes Rfiedman-Lewellen Bodies Echinocytes Acanthocytes (Spur) Rouleaux RBC Agglutinates Schistocytes Sezary Cell PT (9.0-12.0) Seconds INR (0.9-1.1) APTT (21-31) Seconds PTT Ratio VBG pH 7.46 H (7.36-7.41) VBG pCO2 39 (38-50) mmHg VBG pO2 59 mmHg VBG HCO3 28 mmol/L VBG O2 Saturation 92.5 % VBG Base Excess 3.7 mEq/L Sodium (136-145) mmol/L Potassium (3.5-5.1) mmol/L Chloride (98-107) mmol/L Carbon Dioxide (21-32) mmol/L Anion Gap (3-11) BUN (6-23) mg/dl Creatinine (0.6-1.4) mg/dl Est Cr Clr Drug Dosing ml/min eGFR BUN/Creatinine Ratio (10-20) Glucose (70-99(Fasting)) mg/dl Lactate (0.4-2.0) mmol/L Calcium (8.6-10.3) mg/dl Magnesium (1.7-2.4) mg/dl Total Bilirubin (0.2-1.0) mg/dl Direct Bilirubin (0-0.2) mg/dl AST (13-39) U/L ALT (7-52) U/L Alkaline Phosphatase (34-104) U/L Troponin I High Sens (0-20) pg/ml Total Protein (6.0-8.3) gm/dl Albumin (3.4-5.0) gm/dl Globulin (2.5-4.0) gm/dl Albumin/Globulin Ratio (0.9-2) Procalcitonin (0-0.5) ng/ml SARS-CoV-2 (PCR) (Negative) Influenza Type A (PCR) (Neg) Influenza Type B (PCR) (Neg) RSV (RT-PCR) (Neg) Blood Parasites ID Administered Medications Discontinued Medications Sodium Chloride (Nss) 500 mls @ 999 mls/hr IV .Q31M ONE Stop: 07/25/24 18:07 Last Admin: 07/25/24 18:07 Dose: 999 mls/hr Documented By: NISHANT Cefepime HCl (Maxipime 2000mg) 2,000 mg in 20 mls @ 5 mls/min IV NOW STA; Protocol Stop: 07/25/24 17:40 Last Admin: 07/25/24 18:07 Dose: 5 mls/min Documented By: NISHANT Imaging Data Attestation: I personally reviewed and interpreted this imaging study as follows: My Impression: 1 view chest x-ray was obtained in the emergency department. My interpretation is no free air, there is any left-sided infiltrate noted, final report below. Radiologist's Impression: Chest X-Ray 07/25/24 15:45 EXAM: Radiograph of the Chest 1 View INDICATION: Chest pain. TECHNIQUE: Frontal view of the chest. COMPARISON: 07/14/2024 FINDINGS: Lungs and pleural spaces: No change left perihilar mass. Increased thickening of the bronchovascular and interstitial markings. There is new patchy airspace disease in the left lung base and new trace left pleural effusion. No pneumothorax. Heart: Stable prominent cardiac shadow. Mediastinum: Normal contour. Bones/joints: No fracture, erosion or dislocation. Soft tissues: No abnormality noted. No radiopaque foreign body noted. Tubes, lines and devices: Right internal jugular central venous catheter tip in the distal superior vena cava. Upper abdomen: No abnormality noted. IMPRESSION: 1. New left basilar atelectasis or pneumonia and trace left pleural effusion. 2. Stable left hilar mass. 3. Increased interstitial markings typical of pneumonitis or vascular congestion. Aspiration not excluded. ACT 112: Negative or not required by law. Electronically signed by Kristi Larson 07-25-2024 4:26 PM Discharge Plan Visit Data Chief Complaint: Fever Stated Complaint: FEVER ED Provider: Nicolas Bazzi Discharge Problem: Fever and neutropenia, Pneumonia, Thrombocytopenia, Anemia Patient Disposition: Being Evaluated by Hospitalist Forms Stand Alone Forms: My [facility] Prescriptions Prescriptions: No Action sildenafil (pulm.hypertension) [Revatio] 20 mg tablet 40 mg PO 3XWK Qty: 90 2RF trazodone 50 mg tablet 50 mg PO .qhs Qty: 30 2RF rosuvastatin 10 mg tablet 10 mg PO QPM Qty: 90 3RF Rx Instructions: every evening finasteride 5 mg tablet 5 mg PO DAILY Qty: 90 2RF betamethasone dipropionate 0.05 % cream 1 applic topical BID PRN (Reason: skin irritation) Qty: 45 0RF carvedilol 25 mg tablet 25 mg PO BID Qty: 60 2RF Rx Instructions: must administer with a meal/food triamcinolone acetonide 0.1 % cream 1 applic topical BID PRN (Reason: Dry scaling areas) Qty: 15 0RF calcium acetate 667 mg tablet 1,334 mg PO .with meals lansoprazole 30 mg capsule,delayed release(DR/EC) 30 mg PO DAILY PRN (Reason: heart burn) ondansetron 4 mg tablet,disintegrating 4 mg PO BID PRN (Reason: nausea and vomiting) Qty: 14 0RF melatonin 3 mg capsule 3 mg PO HS Qty: 20 0RF guaifenesin [Mucinex] 600 mg tablet extended release 12hr 600 mg PO BID Qty: 10 0RF allopurinol 300 mg tablet 300 mg PO DAILY Qty: 14 0RF benzonatate 100 mg capsule 100 mg PO BID PRN (Reason: cough) Qty: 20 0RF Incruse Ellipta 62.5 mcg/actuation blister with device 1 inh inhalation DAILY Qty: 7 0RF (DME) blood-glucose meter [Leversense Verio Flex Start] Kit See Rx Instructions .Route Qty: 1 0RF Rx Instructions: Checked fasting blood sugar in AM; discuss further diabetes management with PCP (DME) blood-glucose meter [OneTouch Verio Flex Start] Kit See Rx Instructions .Route Qty: 1 0RF Rx Instructions: As directed prochlorperazine maleate 10 mg tablet 10 mg PO DIRECTED PRN (Reason: n/v) Rx Instructions: filled 07/23 25 day supply olanzapine 2.5 mg tablet 2.5 mg PO DIRECTED Rx Instructions: filled 07/23 16 day supply ondansetron 8 mg tablet,disintegrating 8 mg PO DIRECTED PRN (Reason: n/v) Rx Instructions: filled 07/23 30 day supply Referrals Referrals: Harinder Cardenas DO [Primary Care Provider] -
--- NOTE | 2024-07-25 16:26 | XRay Report ---
EXAM: Radiograph of the Chest 1 View INDICATION: Chest pain. TECHNIQUE: Frontal view of the chest. COMPARISON: 07/14/2024 FINDINGS: Lungs and pleural spaces: No change left perihilar mass. Increased thickening of the bronchovascular and interstitial markings. There is new patchy airspace disease in the left lung base and new trace left pleural effusion. No pneumothorax. Heart: Stable prominent cardiac shadow. Mediastinum: Normal contour. Bones/joints: No fracture, erosion or dislocation. Soft tissues: No abnormality noted. No radiopaque foreign body noted. Tubes, lines and devices: Right internal jugular central venous catheter tip in the distal superior vena cava. Upper abdomen: No abnormality noted. IMPRESSION: 1. New left basilar atelectasis or pneumonia and trace left pleural effusion. 2. Stable left hilar mass. 3. Increased interstitial markings typical of pneumonitis or vascular congestion. Aspiration not excluded. ACT 112: Negative or not required by law. Electronically signed by Kristi Larson 07-25-2024 4:26 PM
[2024-07-25 16:35] LABS: Base Excess VBG 3.7 mEq/L; HCO3 VBG 28 mmol/L; Oxygen Saturation VBG 92.5 %; PCO2 VBG 39 mmHg (38-50); PO2 VBG 59 mmHg; pH VBG 7.46 (7.36-7.41)
[2024-07-25 16:45] LABS: Influenza A virus by PCR Negative (Neg); Influenza B virus by PCR Negative (Neg); RSV by PCR Negative (Neg); SARS CoV2 RNA(COVID-19) Ceph NEGATIVE (Negative)
[2024-07-25 16:57] LABS: Albumin Globulin Ratio 1.2 (0.9-2); Albumin Level 2.8 gm/dl (3.4-5.0); BUN Creatinine Ratio 14.3 (10-20); Bilirubin Direct 0.6 mg/dl (0-0.2); Bilirubin,Total 1.3 mg/dl (0.2-1.0); Calcium 7.6 mg/dl (8.6-10.3); Creatinine Clr Calc Pharmacy 15.6 ml/min; Globulin 2.3 gm/dl (2.5-4.0); Magnesium 1.7 mg/dl (1.7-2.4); Potassium 4.2 mmol/L (3.5-5.1); Total Protein 5.1 gm/dl (6.0-8.3)
[2024-07-25 17:10] LABS: Troponin I High Sensitivity 61.6 pg/ml (0-20)
[2024-07-25 17:12] LABS: Partial Thromboplastin Ratio 1.1; Partial Thromboplastin Time 29 Seconds (21-31); Prothrombin Time 11.2 Seconds (9.0-12.0)
[2024-07-25 17:27] LABS: Hematocrit (blood only) 27.6 % (42.0-52.0); Mean Corpuscular Hemoglobin 29.4 pg (25.0-34.0); Mean Corpuscular Hgb Conc 32.6 g/dL (32.0-36.0); Mean Corpuscular Volume 90.2 fL (80.0-100.0); Mean Platelet Volume 11.1 fL (9.4-12.4); Platelet Count 18 K/uL (130-400); RDW Coefficient of Variation 14.6 % (11.5-14.5); RDW Standard Deviation 48.5 fL (36.4-46.3); Red Blood Count 3.06 M/uL (4.70-6.10)
--- NOTE | 2024-07-25 18:00 | History & Physical Report ---
Date of Service July 25, 2024 Assessment & Plan (1) Neutropenic fever: Plan: Emmett is a 69-year-old male with PMH of small cell lung cancer with mets, tumor lysis syndrome, lung mass, dialysis M/W/F, COPD with emphysema, diabetes, HLD, BPH, and HTN. He presented on 07/25 for acute onset of fever and cough. Patient's is at bedside and reports that his fever started last night just before bed. She took his temperature and it was up to 103 F. He took 2 T ylenol, and was okay until the morning. His fever then returned around 12:30 PM, he took 2 additional Tylenol and went to the hospital. Neutropenic fever Fever first developed the evening of 07/24 -Febrile at 37.8 C on arrival Leukopenic cell count 0.60 Oncology consulted Filgrastim daily for up to 3 days ordered. May hold if ANC greater than 1000 Neutropenic precautions Suspected due to pneumonia treated as below. CTA/P with liver enlarged 23 cm and multiple ill-defined low-density mass lesions largest of 5.3 likely representing diffuse metastasis. Mild diverticulosis without evidence of inflammatory change, small amount of likely reactive free fluid in the pelvis. No pneumoperitoneum or abscess. Trace right and small left layering pleural effusions are noted. Nonspecific stable 2.5 cm left adrenal nodule Pneumonia Chest x-ray with left basilar pneumonia, or social markings suspicious for pneumonitis BioFire is negative Continue Rocephin IV every 8 until clinically progressing, expanded coverage due to immunocompromise MRSA nares negative Sputum culture pending Patient with fever, leukopenia and hypoxia although no tachycardia, tachypnea on admission. Lactate was normal. Procalcitonin markedly elevated suspicious for bacteremia Diarrhea CTA/P without acute abdominal infectious/inflammatory pathology Sepsissuspect due to combination of chemotherapy and antibiotics C. difficile testing is confirmed is negative. May use Imodium symptomatically but must monitor carefully for C. difficile risk due to immune compromise and antibiotic treatment New skin breakdown zinc oxide barrier cream ordered If not successful with symptomatic treatment of diarrhea we will switch to [facility] Oncology following Recently completed inpatient chemo complicated by tumor lysis syndrome, treated with hemodialysis for urate nephropathy which she continues Saturday Receiving G-CSF as noted, no other acute change in management at this time ARF Due to tumor lysis syndrome with urate nephropathy Nephrology consulted to continue routine dialysis Volume status, electrolytes acceptable. No indication for acute dialysis at this time Troponin elevation Minimally elevated troponin without exponential rise. Likely due to demand versus impaired clearance with renal disease EKG sinus without territorial ischemia Abdominal pain CTAP without acute infectious findings. Multiple liver mets are noted likely with some pain from capsular stretch. Some reactive free fluid is noted DM2 Glucose checks AC/at bedtime A1c well-controlled 6.3% Continue diet control. If outside of goal 180 then add SSI Chronic stable issues: Hypertension: Continue carvedilol Disposition: Admit to PCU telemetry Full code T2DM, dialysis renal, low K diet VTE PPx: Hold chemical DVT PPx in the setting of thrombocytopenia (platelet count 18 on arrival); SCDs (2) Pneumonia: (3) Sepsis: (4) Metastatic primary lung cancer: (5) Acute renal failure: (6) Pulmonary hypertension: (7) Abdominal pain: (8) Diarrhea: (9) Hypertension: (10) Diabetes: (11) Pancytopenia: (12) Transaminitis: (13) Tobacco dependence due to cigarettes: History of Present Illness Chief Complaint: Neutropenic fever Primary Care Provider: Harinder Cardenas DO Emmett is a 69-year-old male with PMH of small cell lung cancer with mets, tumor lysis syndrome, lung mass, dialysis M/W/F, COPD with emphysema, diabetes, HLD, BPH, and HTN. He presented on 07/25 for acute onset of fever and cough. Patient's is at bedside and reports that his fever started last night just before bed. She took his temperature and it was up to 103 F. He took 2 Tylenol, and was okay until the morning. His fever then returned around 12:30 PM, he took 2 additional Tylenol and went to the hospital. Patient reports he has had a productive cough (yellow sputum production) which started during his most recent hospitalization. Recently hospitalized at [facility] from 07/12 to 07/21 for new metastatic cancer diagnosis (lung primary), as well as tumor lysis syndrome. Patient reports he has had SOB when he lays on his right side. No SOB at rest while laying on the left side. Patient is currently on supplemental oxygen at home (2L NC at night). NKDA. He took his regular morning medicine today. Patient is a former tobacco cigarette smoker, but quit on 07/12 after his cancer diagnosis. No prior history of DVT/PEs. He is currently following with [facility] nephrology for dialysis M//. Last dialysis session was on Monday 07/24, and he reports no problems with this session. Patient is still producing urine. Additionally, he has been having lower back pain and pain around his buttocks; has been applying Desitin. reports that he has had loose stool over the past couple days. Brown in color. Liquidy. Not malodorous. No reported blood in his stool. Patient is febrile at 37.8 C on arrival; SpO2 92% on RA; HTN at 171/81. ED course: Cefepime 2000 mg IV NSS 500 mL IV ROS: Patient endorses lightheadedness, fever, productive cough (yellow sputum production) since being in the hospital, hemoptysis, nose bleeds, SOB when laying on the right side, pleuritic CP, low/transfers abdominal pain that developed in the ED, lower back pain from swelling, and swelling/pain in the legs. Patient denies night-sweats, chills, syncope, headache, chest pain, chest palpitations, dysuria, burning with urination, and blood in the urine/stool. Per nursing staff, patient's SpO2 dropped to 86% when he lied flat on his back on RA. Placed on 2L NC humidified oxygen supplementation and subsequently returned to 94%. Allergies Allergy/AdvReac Type Severity Reaction Status Date / Time No Known Allergies Allergy Verified 05/14/24 10:40 Home Medications Medication Instructions Recorded Confirmed Type betamethasone dipropionate 0.05 % 1 applic topical BID PRN skin 08/03/21 07/25/24 Rx topical cream irritation #45 grams carvedilol 25 mg tablet 25 mg PO BID #60 tabs 08/03/21 07/25/24 Rx triamcinolone acetonide 0.1 % 1 applic topical BID PRN Dry 08/03/21 07/25/24 Rx topical cream scaling areas #15 grams finasteride 5 mg tablet 5 mg PO DAILY #90 tabs 08/13/23 07/25/24 Rx sildenafil (pulm.hypertension) 20 40 mg (2 x 20 mg) PO 3XWK #90 tabs 04/01/24 07/25/24 Rx mg tablet (Revatio) lansoprazole 30 mg capsule,delayed 30 mg PO DAILY PRN heart burn 07/12/24 07/25/24 History release allopurinol 300 mg tablet 300 mg PO DAILY #14 tabs 07/21/24 07/25/24 Rx benzonatate 100 mg capsule 100 mg PO BID PRN cough #20 caps 07/21/24 07/25/24 Rx blood-glucose meter (OneTouch #1 ea 07/21/24 07/23/24 Rx Verio Flex Start kit) guaifenesin 600 mg tablet, 600 mg PO BID #10 tabs 07/21/24 07/25/24 Rx extended release 12 hr (Mucinex) melatonin 3 mg capsule 3 mg PO HS #20 caps 07/21/24 07/25/24 Rx ondansetron 4 mg disintegrating 4 mg PO BID PRN nausea and 07/21/24 07/25/24 Rx tablet vomiting #14 tabs umeclidinium 62.5 mcg/actuation 1 inh inhalation DAILY #7 ea 07/21/24 07/25/24 Rx blister powder for inhalation (Incruse Ellipta) blood-glucose meter (OneTouch #1 ea 07/22/24 07/23/24 Rx Verio Flex Start kit) rosuvastatin 10 mg tablet 10 mg PO QPM #90 tabs 07/22/24 07/25/24 Rx trazodone 50 mg tablet 50 mg PO .qhs #30 tabs 07/22/24 07/25/24 Rx calcium acetate 667 mg tablet 1,334 mg PO .with meals 07/23/24 07/25/24 History olanzapine 2.5 mg tablet 2.5 mg PO DIRECTED 07/25/24 07/25/24 History ondansetron 8 mg disintegrating 8 mg PO DIRECTED PRN n/v 07/25/24 07/25/24 History tablet prochlorperazine maleate 10 mg 10 mg PO DIRECTED PRN n/v 07/25/24 07/25/24 History tablet Past Med/Surg History Problem List Abdominal pain Transaminitis Diarrhea Acute renal failure Sepsis Pancytopenia Neutropenic fever Tumor lysis syndrome Acute kidney injury Pneumonia Small cell lung cancer Lesion of lung Metastasis to liver LAD (lymphadenopathy), mediastinal Lung mass Chronic bronchitis COPD with emphysema Pulmonary hypertension Transaminitis (Acute) Acute hypokalemia (Acute) Metastatic primary lung cancer (Acute) Diabetes Osteoarthritis Chronic Kidney Disease Hyperlipidemia BPH (benign prostatic hyperplasia) Tobacco dependence due to cigarettes Hypertension Medical History Full thickness rotator cuff tear History of COVID-2019, mild symptoms Surgical History History of arthroscopy of right shoulder 18 years ago History of colonoscopy Hx of LASIK bilateral Family History Son Kidney disease Social History Smoking Status: Former smoker Tobacco Type: Cigarettes Age Started Using Tobacco: 19; packs per day: 1.5; Cigarettes Per Day: 30; Smoking End Date: 07/12/2024; Second Hand Exposure: Yes (childhood); Do You Dip or Chew Tobacco: No; Hx Alcohol Use: No Hx Substance Use: No Preferred Language: [place]er Communication Ability: Effective Billing Analyst Required: No Beliefs That Will Affect Care: None marital status: marital status details: but still living together Current Living Situation: Spouse current occupational status: retired How many Children do You have: 2 Other Information That Helps Us Care for You: No Feels Safe at Home: Yes Safety Concerns: Feels Safe At This Time Childhood Exposure to Second-Hand Smoke: Yes Diet: regular caffeine: Yes Dental Care, Regularly: Yes Physical Activity Frequency: Other Physical Activity Frequency Comment: Outside work Seatbelt Use: sometimes Sunscreen Use: Yes Assistive Devices: Cane Assistive Devices Comment: cane Review of Systems Review of Systems: See HPI above Physical Exam Physical Exam: General: Mild respiratory distress; at bedside; non-toxic appearing; frail appearing; cooperative; SpO2 94% on 2L NC HEENT: normocephalic, atraumatic; no scleral icterus; PERRLA w/ EOMs intact; vision and hearing grossly intact Neck: supple; trachea midline Skin: warm, dry without signs of tenting; no cyanosis; no rashes, bruising, lesions, or erythema noted CV: chest wall NTP; HD port noted to have dried blood, without signs of erythema, purulent drainage, swelling, or infection; RRR; S1/S2 normal; no murmurs/rubs/gallops; pulses intact and symmetric at radial, DP, and PT Lungs: Mild respiratory distress; conversational dyspnea; symmetrical chest wall expansion; bibasilar crackles auscultated in the lower lung lombardi ABD: Soft; patient does note mild tenderness to palpation in lower quadrants paul aterally; BS present; no rebound/guarding; no distention Back: Upper and lower spine is NTP; no pressure ulcer noted, but patient does exhibit superficial erythema around the anus MSK: no tics or fasciculations; lower extremities are edematous bilaterally (nonpitting edema), but not erythematous; NTP Neuro: A&Ox3; normal mood and affect; fluent speech; no focal deficits; sensation intact and symmetric in lower EXTR bilaterally Results & Data Results & Data Vital Signs (Past 12 Hours) Vital Signs Temp Pulse Resp BP Pulse Ox O2 Del Method 07/25/24 16:03 76 07/25/24 16:00 77 22 171/81 H 92 Room Air 07/25/24 15:45 76 22 93 Room Air 07/25/24 15:42 79 21 167/89 H 92 Room Air 07/25/24 15:40 77 23 93 Room Air 07/25/24 15:40 Room Air 07/25/24 14:59 37.8 C H 76 20 168/74 H 92 Room Air Laboratory Results Abnormal lab results 07/25/24 07/25/24 07/25/24 Range/Units 16:00 16:17 17:05 WBC 0.60 L* (4.8-10.8) K/ul RBC 3.06 L (4.70-6.10) M/uL Hgb 9.0 L (14.0-18.0) g/dl Hct 27.6 L (42.0-52.0) % RDW Std Deviation 48.5 H (36.4-46.3) fL RDW Coeff of Iraida 14.6 H (11.5-14.5) % Plt Count 18 L* (130-400) K/uL VBG pH 7.46 H (7.36-7.41) BUN 61 H (6-23) mg/dl Creatinine 4.27 H (0.6-1.4) mg/dl Glucose 166 H (70-99(Fasting)) mg/dl Calcium 7.6 L (8.6-10.3) mg/dl Total Bilirubin 1.3 H (0.2-1.0) mg/dl Direct Bilirubin 0.6 H (0-0.2) mg/dl AST 119 H (13-39) U/L ALT 79 H (7-52) U/L Alkaline Phosphatase 530 H (34-104) U/L Troponin I High Sens 61.6 H* (0-20) pg/ml Total Protein 5.1 L (6.0-8.3) gm/dl Albumin 2.8 L (3.4-5.0) gm/dl Globulin 2.3 L (2.5-4.0) gm/dl Procalcitonin 99.90 H (0-0.5) ng/ml Diagnostic Findings Chest X-Ray 07/25/24 15:45 EXAM: Radiograph of the Chest 1 View INDICATION: Chest pain. TECHNIQUE: Frontal view of the chest. COMPARISON: 07/14/2024 FINDINGS: Lungs and pleural spaces: No change left perihilar mass. Increased thickening of the bronchovascular and interstitial markings. There is new patchy airspace disease in the left lung base and new trace left pleural effusion. No pneumothorax. Heart: Stable prominent cardiac shadow. Mediastinum: Normal contour. Bones/joints: No fracture, erosion or dislocation. Soft tissues: No abnormality noted. No radiopaque foreign body noted. Tubes, lines and devices: Right internal jugular central venous catheter tip in the distal superior vena cava. Upper abdomen: No abnormality noted. IMPRESSION: 1. New left basilar atelectasis or pneumonia and trace left pleural effusion. 2. Stable left hilar mass. 3. Increased interstitial markings typical of pneumonitis or vascular congestion. Aspiration not excluded. ACT 112: Negative or not required by law. Electronically signed by Kristi Larson 07-25-2024 4:26 PM ECG Additional Comments: ECG revealed NSR at 77 bpm; QTc 479 Code Status & VTE Plan Code Status Full code VTE Prophylaxis Plan VTE Prophylaxis will be ordered: Yes Supervising Physician Co-Signing Physician Notes Patient seen and examined, chart reviewed, case discussed with Sudhir Cuadra and I agree with the assessment and plan as above except as otherwise noted above. PG Care Time/CCT Total # of Minutes Spent Total Time Spent with Patient: Total time spent is greater than 50% in coordination of care (as documented) at patient's floor/unit and/or counseling patient: [place] [address] INT INP/OBS CARE 3/75MIN Patient Type Established Medical Decision Making High Complexity Diagnoses Neutropenic fever D70.9; R50.81 Pneumonia J18.9 Sepsis A41.9 Metastatic primary lung cancer C34.90 Acute renal failure N17.9 Pulmonary hypertension I27.20 Abdominal pain R10.9 Diarrhea R19.7 Hypertension I10 Diabetes E11.9 Pancytopenia D61.818 Transaminitis R74.01 Tobacco dependence due to cigarettes F17.210
[2024-07-25] MEDS: CEFEPIME 2000MG 2,000 MG/20 ML SYR IV STA (18:07)
[2024-07-25] MEDS: SODIUM CHLORIDE 0.9% 500 ML IV ONE (18:07)
[2024-07-25 18:11] LABS: ALC (manual) 0.49 K/uL (1.2-3.4); ANC (manual) 0.09 K/uL (1.4-6.5); Eosinophils # (manual) 0.02 K/uL (0-0.50); Eosinophils % (manual) 3 %; Lymphocytes # (manual) 0.49 K/uL (1.2-3.4); Lymphocytes % (manual) 81 %; Monocytes # (manual) 0.01 K/uL (0.11-0.59); Monocytes % (manual) 1 %; Neutrophils # (manual) 0.09 K/uL (1.40-6.50); Neutrophils % (manual) 15 %; RBC Morphology Unremarkable
--- NOTE | 2024-07-25 20:04 | CT Scan Report ---
Exam(s): CT ABDOMEN + PELVIS Without Contrast EXAM: CT Abdomen and Pelvis Without Intravenous Contrast CLINICAL HISTORY: Reason for exam: neutropenic fever, abdominal pain. TECHNIQUE: Axial computed tomography images of the abdomen and pelvis without intravenous contrast. CTDI is 26.25 mGy and DLP is 1215.35 mGy-cm. Automated exposure control was utilized for the study. A dose lowering technique was utilized adhering to the principles of ALARA. COMPARISON: July 12, 2024 FINDINGS: Lung bases: Unremarkable. No mass. No consolidation. Pleural space: Trace right and small left pleural effusions layering posteriorly measuring up to 4 cm on the left. ABDOMEN: Liver: The liver is enlarged measuring 23 cm craniocaudad the multiple ill-defined low-density mass lesions throughout the entire liver. The largest discrete mass measures 5.3 cm. Gallbladder and bile ducts: Unremarkable. No calcified stones. No ductal dilation. Pancreas: Unremarkable. No ductal dilation. Spleen: Unremarkable. No splenomegaly. Adrenals: 2.5 cm left adrenal nodule is nonspecific. Kidneys and ureters: Smooth oval 8 cm simple cysts in the right kidney. No follow-up is required. Smooth oval 2.7 cm simple cyst in the right kidney. No follow-up is required. No obstructing stones. No hydronephrosis. Stomach and bowel: See below. PELVIS: Appendix: The appendix is normal. Bowel loops are nondilated. No acute inflammatory changes are seen involving the bowel. There is mild diverticulosis of the colon. There is a small amount of free fluid in the pelvis. No pneumoperitoneum or abscess. Bladder: Unremarkable. No stones. Reproductive: Unremarkable as visualized. ABDOMEN and PELVIS: Intraperitoneal space: See above. Bones/joints: Moderate degenerative changes in the spine. No acute fracture or subluxation is seen. 8 mm inferior endplate defect at L3 could represent Schmorl's node. Moderate multilevel degenerative changes throughout the spine. No acute fracture or subluxation is seen. Soft tissues: Unremarkable. Vasculature: The abdominal aorta is severely calcified but nondilated. This is a noncontrast study. Lymph nodes: Unremarkable. No enlarged lymph nodes. IMPRESSION: 1. The liver is enlarged measuring 23 cm craniocaudad the multiple ill- defined low-density mass lesions throughout the entire liver. The largest discrete mass measures 5.3 cm. Likely diffuse metastasis. 2. The appendix is normal. Bowel loops are nondilated. No acute inflammatory changes are seen involving the bowel. There is mild diverticulosis of the colon. There is a small amount of free fluid in the pelvis. No pneumoperitoneum or abscess. 3. Moderate degenerative changes in the spine. No acute fracture or subluxation is seen. 8 mm inferior endplate defect at L3 could represent Schmorl's node. Consider bone scan to rule out metastasis. 4. Trace right and small left pleural effusions layering posteriorly measuring up to 4 cm on the left. 5. 2.5 cm left adrenal nodule is nonspecific, unchanged. Electronically signed by: Mt Underwood MD 07/25/24 20:03 PM
[2024-07-25 20:05] LABS: Appearance Urine Clear (Clear); Bacteria Urine Automated None Seen (None Seen); Bilirubin Urine Negative (Negative); Blood Urine 1+ (Negative); Cast Urine Automated 0-2 /lpf (0-2); Color Urine Yellow; Epithelial Cell Urine Auto 0-2 /hpf (0-2); Glucose Urine UA Negative (Negative); Ketones Urine Negative (Negative); Leukocyte Esterase Urine Negative (Negative); Nitrite Urine Negative (Negative); Protein Urine 2+ (Negative); Specific Gravity Urine 1.011 (1.000-1.030); Urobilinogen Urine Negative (Negative); WBC Urine Automated 0-5 /hpf (0-5)
[2024-07-25] MEDS ORDERED: CARBOHYDRATES FOR HYPOGLYCEMIA PO PRN (20:32)
[2024-07-25] MEDS ORDERED: DEXTROSE 50% 50 ML SYRINGE IV PRN (20:32)
[2024-07-25] MEDS ORDERED: GLUCOSE 40% GEL 15 GM TUBE PO PRN (20:32)
[2024-07-25] MEDS ORDERED: GLUCOSE 10 TAB/TUBE PO PRN (20:32)
[2024-07-25] MEDS ORDERED: BENZONATATE 100 MG CAPSULE PO PRN (20:32)
[2024-07-25] MEDS ORDERED: ONDANSETRON INJ 2 MG/ML 2 ML VIAL IV PRN (20:32)
[2024-07-25] MEDS ORDERED: GLUCAGON FOR INJ 1 MG VIAL SQ PRN (20:32)
[2024-07-25] MEDS: FILGRASTIM 480 MCG/1.6 ML VIAL SC STA (21:21)
[2024-07-25] MEDS: MELATONIN 3 MG TAB PO SCH (21:21)
[2024-07-25] MEDS: carvediloL 25 MG TAB PO SCH (21:21)
[2024-07-25] MEDS: ROSUVASTATIN CALCIUM 10 MG TAB PO SCH (21:22)
[2024-07-25] MEDS: CALCIUM ACETATE 667 MG CAP/TAB PO SCH (21:22)
[2024-07-25] MEDS: guaiFENesin 600 MG TABCR PO SCH (21:23)
[2024-07-25] MEDS: traZODone HCL 50 MG TAB PO SCH (21:23)
[2024-07-26 00:39] LABS: Adenovirus PCR Not Detected (NotDetected); Bordetella parapertussis PCR Not Detected (NotDetected); Bordetella pertussis PCR Not Detected (NotDetected); Chlamydia pneumoniae PCR Not Detected (NotDetected); Coronavirus 229E PCR Not Detected (NotDetected); Coronavirus CoV-2 (COVID19)PCR Not Detected (NotDetected); Coronavirus HKU1 PCR Not Detected (NotDetected); Coronavirus NL63 PCR Not Detected (NotDetected); Coronavirus OC43PCR Not Detected (NotDetected); Human Metapneumovirus PCR Not Detected (NotDetected); Influenza A PCR Not Detected (NotDetected); Influenza B PCR Not Detected (NotDetected); Mycoplasma pneumoniae PCR Not Detected (NotDetected); Parainfluenza Virus 1 PCR Not Detected (NotDetected); Parainfluenza Virus 2 PCR Not Detected (NotDetected); Parainfluenza Virus 3 PCR Not Detected (NotDetected); Parainfluenza Virus 4 PCR Not Detected (NotDetected); Respiratory Syncytial VirusPCR Not Detected (NotDetected); Rhinovirus/Enterovirus PCR Not Detected (NotDetected)
[2024-07-26] MEDS: CEFEPIME 1000MG 1,000 MG/10 ML SYR IV SCH (05:53)
[2024-07-26 07:59] LABS: Hematocrit (blood only) 26.2 % (42.0-52.0); Hemoglobin 8.6 g/dl (14.0-18.0); Mean Corpuscular Hemoglobin 29.9 pg (25.0-34.0); Mean Corpuscular Hgb Conc 32.8 g/dL (32.0-36.0); Mean Platelet Volume 12.5 fL (9.4-12.4); Platelet Count 20 K/uL (130-400); RDW Coefficient of Variation 14.7 % (11.5-14.5); RDW Standard Deviation 49.2 fL (36.4-46.3); Red Blood Count 2.88 M/uL (4.70-6.10); White Blood Count 0.62 K/ul (4.8-10.8)
[2024-07-26 08:24] LABS: Albumin Globulin Ratio 1.4 (0.9-2); Albumin Level 2.9 gm/dl (3.4-5.0); BUN Creatinine Ratio 14.7 (10-20); Bilirubin,Total 1.8 mg/dl (0.2-1.0); Calcium 7.9 mg/dl (8.6-10.3); Creatinine Clr Calc Pharmacy 13.9 ml/min; Globulin 2.1 gm/dl (2.5-4.0); Magnesium 1.7 mg/dl (1.7-2.4); Potassium 4.7 mmol/L (3.5-5.1)
[2024-07-26 08:39] LABS: A calco-baum cmplx NotReported Not Detected (NotDetected); Bact fragilis Not Reported Not Detected (NotDetected); Blood Culture Id Panel See PCR Comment (NotDetected); C auris Not Reported Not Detected (NotDetected); CTX-M Resistant Gene Not Detected (NotDetected); Calbicans Not Reported Not Detected (NotDetected); Candida glabrata Not Reported Not Detected (NotDetected); Candida krusei Not Reported Not Detected (NotDetected); Cneoformans/gatti Not Reported Not Detected (NotDetected); Cparapsilosis Not Reported Not Detected (NotDetected); E cloacae compx Not Reported Not Detected (NotDetected); Efaecalis Not Reported Not Detected (NotDetected); Efaecium Not Reported Not Detected (NotDetected); Enterobacterales Not Reported Not Detected (NotDetected); Escherichia coli Not Reported Not Detected (NotDetected); H influenzae Not Reported Not Detected (NotDetected); IMP Resistant Gene Not Detected (NotDetected); K aerogenes Not Reported Not Detected (NotDetected); KPC Resistant Gene Not Detected (NotDetected); Koxytoca Not Reported Not Detected (NotDetected); Kpneumoniae grp Not Reported Not Detected (NotDetected); Lmonocyt Not Reported Not Detected (NotDetected); N meningitidis Not Reported Not Detected (NotDetected); NDM Resistant Gene Not Detected (NotDetected); Proteus spp Not Reported Not Detected (NotDetected); Pseudomonas aeruginosa DETECTED (NotDetected); Salmonella spp Not Reported Not Detected (NotDetected); Staph lugdunensis Not Reported Not Detected (NotDetected); Staph spp. Not Reported Not Detected (NotDetected); Staphaureus Not Reported Not Detected (NotDetected); Staphepi Not Reported Not Detected (NotDetected); Stenmaltophilia Not Reported Not Detected (NotDetected); Strep agal(GrpB) Not Reported Not Detected (NotDetected); Strep pneum Not Reported Not Detected (NotDetected); Strep pyog (GrpA) Not Reported Not Detected (NotDetected); Strep spp Not Reported Not Detected (NotDetected); VIM Resistant Gene Not Detected (NotDetected)
[2024-07-26 08:45] LABS: P aeruginosa Not Reported DETECTED (NotDetected)
[2024-07-26] MEDS: allopurinoL 300 MG TAB PO SCH (08:47)
[2024-07-26] MEDS: FINASTERIDE 5 MG TAB PO SCH (08:47)
[2024-07-26] MEDS: UMECLIDINIUM BROMIDE 62.5MCG/BLISTER 7 PUFFS/INHALER INH SCH (08:47)
[2024-07-26] MEDS: FILGRASTIM 480 MCG/1.6 ML VIAL SC SCH (09:01)
--- NOTE | 2024-07-26 09:03 | Nephrology Consultation ---
Date of Consultation July 26, 2024 Assessment & Plan (1) Acute renal failure: * AVE due to TLS * No evidence of recovery at this time. Creatinine remains elevated in between dialysis treatments * Patient is clinically euvolemic. Electrolyte balance is acceptable. No acute indication for AUTOMOTIVE UPHOLSTERER therapy today. * Will plan for HD tomorrow (2) Chronic Kidney Disease: * CKD stage G3a/A3 (moderate impairment). Baseline Cr 1.5 w/ EGFR 48 cc/minute. Renal impairment has been attributed to DKD, hypertensive nephrosclerosis (3) Neutropenic fever: * G-CSF as per oncology (4) Sepsis: * Pseudomonas sepsis. Possible pulmonary, urinary or catheter related source * On cefepime therapy * Consider transition to Zosyn or ertapenem due to AKID (5) Tumor lysis syndrome: * Has received rasburicase * 07/20/2024 uric acid 3.0. Dialysis is also helping to keep this within acceptable limits (6) Small cell lung cancer: * Chemotherapy as per oncology * Poor prognosis. Consider consultation w/ palliative care to discuss GOC/expectations (7) Pneumonia: History of Present Illness Reason for Consultation: ESKD-D Attending Physician: Jeyson Garcia MD History of Present Illness Mr. Arcos is a 69-year-old white male who is seen at the request of the [facility] hospitalist service to provide inpatient hemodialysis and assist with medical management. Information for the HPI is obtained from direct patient interview and review of the EMR. HPI summarized as follows: Mr. Arcos has a history of CKD. He has undergone outpatient nephrology evaluation by Dr. Dunn. His baseline creatinine has been 1.5 w/ EGFR 48 cc/minute. The renal impairment has been attributed to DKD, hypertensive nephrosclerosis. Unfortunately Mr. Arcos has been a long-term smoker. He was hospitalized 07/12/2024 - 07/21/2024 for evaluation of a newly diagnosed left lung lesion. CT revealed a mass in the upper lobe of the left lung as well as mediastinal lymphadenopathy and evidence of hepatic metastases. There is also a lesion involving the right scapula which was suggestive of skeletal metastases. 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 Patient was started on chemotherapy consisting of carboplatin and etoposide. This was complicated by TLS and AVE. He received treatment with rasburicase but required initiation of AUTOMOTIVE UPHOLSTERER. On 07/17/2024 R IJ TCC was placed and HD initiated. Following discharge from the hospital Mr. Arcos received outpatient dialysis at [facility] on a MWF basis. He was subsequently readmitted to [facility] 07/25/2024 with neutropenic fever. Oncology has provided Neupogen. CXR shows possible left lower lobe pneumonia. Urinalysis/culture has not yet been completed. Blood cultures positive for gram-negative krunal. PCR is positive for Pseudomonas. Patient has been started on cefepime therapy. Nephrology consultation has been requested to provide dialysis support throughout patient's hospitalization. Allergies Allergy/AdvReac Type Severity Reaction Status Date / Time No Known Allergies Allergy Verified 05/14/24 10:40 Home Medications Medication Instructions Recorded Confirmed Type betamethasone dipropionate 0.05 % 1 applic topical BID PRN skin 08/03/21 07/25/24 Rx topical cream irritation #45 grams carvedilol 25 mg tablet 25 mg PO BID #60 tabs 08/03/21 07/25/24 Rx triamcinolone acetonide 0.1 % 1 applic topical BID PRN Dry 08/03/21 07/25/24 Rx topical cream scaling areas #15 grams finasteride 5 mg tablet 5 mg PO DAILY #90 tabs 08/13/23 07/25/24 Rx sildenafil (pulm.hypertension) 20 40 mg (2 x 20 mg) PO 3XWK #90 tabs 04/01/24 07/25/24 Rx mg tablet (Revatio) lansoprazole 30 mg capsule,delayed 30 mg PO DAILY PRN heart burn 07/12/24 07/25/24 History release allopurinol 300 mg tablet 300 mg PO DAILY #14 tabs 07/21/24 07/25/24 Rx benzonatate 100 mg capsule 100 mg PO BID PRN cough #20 caps 07/21/24 07/25/24 Rx blood-glucose meter (OneTouch #1 ea 07/21/24 07/23/24 Rx Verio Flex Start kit) guaifenesin 600 mg tablet, 600 mg PO BID #10 tabs 07/21/24 07/25/24 Rx extended release 12 hr (Mucinex) melatonin 3 mg capsule 3 mg PO HS #20 caps 07/21/24 07/25/24 Rx ondansetron 4 mg disintegrating 4 mg PO BID PRN nausea and 07/21/24 07/25/24 Rx tablet vomiting #14 tabs umeclidinium 62.5 mcg/actuation 1 inh inhalation DAILY #7 ea 07/21/24 07/25/24 Rx blister powder for inhalation (Incruse Ellipta) blood-glucose meter (OneTouch #1 ea 07/22/24 07/23/24 Rx Verio Flex Start kit) rosuvastatin 10 mg tablet 10 mg PO QPM #90 tabs 07/22/24 07/25/24 Rx trazodone 50 mg tablet 50 mg PO .qhs #30 tabs 07/22/24 07/25/24 Rx calcium acetate 667 mg tablet 1,334 mg PO .with meals 07/23/24 07/25/24 History olanzapine 2.5 mg tablet 2.5 mg PO DIRECTED 07/25/24 07/25/24 History ondansetron 8 mg disintegrating 8 mg PO DIRECTED PRN n/v 07/25/24 07/25/24 History tablet prochlorperazine maleate 10 mg 10 mg PO DIRECTED PRN n/v 07/25/24 07/25/24 History tablet Patient History Medical History Full thickness rotator cuff tear History of COVID-2019, mild symptoms Surgical History History of arthroscopy of right shoulder 18 years ago History of colonoscopy Hx of LASIK bilateral Family History Son Kidney disease Social History Smoking Status: Former smoker Tobacco Type: Cigarettes Age Started Using Tobacco: 19; packs per day: 1.5; Cigarettes Per Day: 30; Smoking End Date: 07/12/2024; Second Hand Exposure: Yes (childhood); Do You Dip or Chew Tobacco: No; Hx Alcohol Use: No Hx Substance Use: No Preferred Language: Irish Communication Ability: Effective Settlement Clerk Required: No Beliefs That Will Affect Care: None marital status: marital status details: but still living together Current Living Situation: Spouse current occupational status: retired How many Children do You have: 2 Other Information That Helps Us Care for You: No Feels Safe at Home: Yes Safety Concerns: Feels Safe At This Time Childhood Exposure to Second-Hand Smoke: Yes Diet: regular caffeine: Yes Dental Care, Regularly: Yes Physical Activity Frequency: Other Physical Activity Frequency Comment: Outside work Seatbelt Use: sometimes Sunscreen Use: Yes Assistive Devices: Cane Assistive Devices Comment: cane Review of Systems Constitutional: + fever Eyes: no problem reported Ear, Nose, Mouth, Throat: no problem reported Respiratory: no cough and no dyspnea Cardiovascular: no chest pain Gastrointestinal: no nausea, no vomiting and no diarrhea/loose stools Genitourinary: no dysuria Integumentary: no rash Physical Exam Constitutional: + ill appearing Eyes: PERRL, conjunctivae normal, anicteric sclerae ENMT: external ear and nose normal, oropharynx normal Neck: trachea midline, no thyromegaly R IJ TCC with clean dry dressing in place Respiratory: normal respiratory effort, lungs clear to auscultation Cardiovascular: RRR, no murmur, no edema Gastrointestinal (Abdomen): normal bowel sounds, soft, nontender, no hepatosplenomegaly Skin: no rashes, warm and dry Neurologic: Speech / Cognition: normal speech and normal cognition Results & Data Vital Signs (Past 12 Hours) Vital Signs Temp Pulse Resp BP BP Pulse Ox O2 Del Method 07/26/24 08:17 36.3 C L 66 18 188/90 H 96 Nasal Cannula 07/26/24 04:59 36.4 C L 76 18 176/81 H 95 Nasal Cannula 07/25/24 23:27 36.5 C 82 16 171/78 H 94 Nasal Cannula O2 Flow Rate 07/26/24 08:17 2 07/26/24 04:59 2 07/25/24 23:27 2 Laboratory Results Laboratory Results - last 24 hr 07/25/24 07/25/24 07/25/24 15:45 15:51 16:00 WBC Cancelled RBC Cancelled Hgb Cancelled Hct Cancelled MCV Cancelled MCH Cancelled MCHC Cancelled RDW Std Deviation Cancelled RDW Coeff of Iraida Cancelled Plt Count Cancelled MPV Cancelled Immature Gran % (Auto) Cancelled Neut % (Auto) Cancelled Lymph % (Auto) Cancelled [place] % (Auto) Cancelled Eos % (Auto) Cancelled Baso % (Auto) Cancelled Neut # (Auto) Cancelled Lymph # (Auto) Cancelled [place] # (Auto) Cancelled Eos # (Auto) Cancelled Baso # (Auto) Cancelled Immature Gran # (Auto) Cancelled Absolute Nucleated RBC Cancelled Nucleated RBC % (auto) Cancelled Neutrophils % (Manual) Cancelled Band Neutrophils % Cancelled Lymphocytes % (Manual) Cancelled Prolymphocyte % Cancelled Reactive Lymphs % (Man) Cancelled Monocytes % (Manual) Cancelled Eosinophils % (Manual) Cancelled Basophils % (Manual) Cancelled Metamyelocytes % (Man) Cancelled Myelocytes % (Man) Cancelled Promyelocytes % (Man) Cancelled Blast Cells % (Manual) Cancelled Plasma Cell % (Manual) Cancelled Other Cells % Cancelled Nucleated RBC % Cancelled Neutrophils # (Manual) Cancelled Band Neutrophils # Cancelled Total Absolute Neuts Cancelled Lymphocytes # (Manual) Cancelled Prolymphocyte # Cancelled Reactive Lymphs # Cancelled Total Abs Lymphocytes Cancelled Monocytes # (Manual) Cancelled Eosinophils # (Manual) Cancelled Basophils # (Manual) Cancelled Metamyelocytes # (Man) Cancelled Myelocytes # (Manual) Cancelled Promyelocytes # (Man) Cancelled Blast Cells # (Man) Cancelled Plasma Cell # (Manual) Cancelled Other Cells # Cancelled Nucleated RBCs # (Man) Cancelled Hypersegmented Neuts Cancelled Hyposegmented Neuts Cancelled Hypogranular Neuts Cancelled Large Granular Lymphs Cancelled # Lrg Granular Lymphs Cancelled Hairy Cells Cancelled Smudge Cells Cancelled Toxic Granulation Cancelled Toxic Vacuolation Cancelled Dohle Bodies Cancelled Grecia Rods Cancelled Platelet Estimate Cancelled Hypogranular Platelets Cancelled Giant Platelets Cancelled Platelet Satelliting Cancelled RBC Morphology Cancelled Polychromasia Cancelled Hypochromasia Cancelled Poikilocytosis Cancelled Basophilic Stippling Cancelled Anisocytosis Cancelled Microcytosis Cancelled Macrocytosis Cancelled Spherocytes Cancelled Pappenheimer Bodies Cancelled Sickle Cells Cancelled Target Cells Cancelled Tear Drop Cells Cancelled Ovalocytes Cancelled Stomatocytes Cancelled Friedman-[place] Bodies Cancelled Echinocytes Cancelled Acanthocytes (Spur) Cancelled Rouleaux Cancelled RBC Agglutinates Cancelled Schistocytes Cancelled Sezary Cell Cancelled PT 11.2 INR 1.0 APTT 29 PTT Ratio 1.1 VBG pH VBG pCO2 VBG pO2 VBG HCO3 VBG O2 Saturation VBG Base Excess Sodium 139 Potassium Chloride Carbon Dioxide Anion Gap BUN Creatinine Est Cr Clr Drug Dosing eGFR BUN/Creatinine Ratio Glucose POC Glucose Lactate 1.7 Calcium Magnesium Total Bilirubin Direct Bilirubin AST ALT Alkaline Phosphatase Troponin I High Sens Total Protein Albumin Globulin Albumin/Globulin Ratio Procalcitonin Urine Color Urine Appearance Urine pH Ur Specific [place] Urine Protein Urine Glucose (UA) Urine Ketones Urine Blood Urine Nitrite Urine Bilirubin Urine Urobilinogen Ur Leukocyte Esterase Urine WBC (Auto) Urine RBC (Auto) U Hyaline Cast (Auto) U Epithel Cells (Auto) Urine Bacteria (Auto) Nasal Screen MRSA (PCR) Stl C. diff Tox B Gene Adenovirus (PCR) B. pertussis DNA (PCR) B.parapertussis DNA PCR C. pneumoniae DNA (PCR) Coronavirus OC43 (PCR) Coronavirus HKU1 (PCR) Coronavirus 229E (PCR) SARS-CoV-2 (PCR) NEGATIVE Coronavirus NL63 (PCR) Human Metapneumovir PCR Influenza Type A (PCR) Negative Influenza Type B (PCR) Negative M. pneumoniae (PCR) Parainfluenza 1 (PCR) Parainfluenza 2 (PCR) Parainfluenza 3 (PCR) Parainfluenza 4 (PCR) RSV (RT-PCR) Negative RSV (PCR) Entero/Rhino (PCR) P. aeruginosa (PCR) DETECTED A blaIMP Car res Gene PCR Not Detected KPC-Carbap Res Gene PCR Not Detected blaNDM Car Res Gene PCR Not Detected blaVIM Car Res Gene PCR Not Detected CTX-M Gene Resistance (PCR) Not Detected Bld Cult ID Panel PCR See PCR Comment Blood Parasites ID 07/25/24 07/25/24 07/25/24 16:00 16:00 16:00 WBC RBC Hgb Hct MCV MCH MCHC RDW Std Deviation RDW Coeff of [place] Plt Count MPV Immature Gran % (Auto) Neut % (Auto) Lymph % (Auto) [place] % (Auto) Eos % (Auto) Baso % (Auto) Neut # (Auto) Lymph # (Auto) [place] # (Auto) Eos # (Auto) Baso # (Auto) Immature Gran # (Auto) Absolute Nucleated RBC Nucleated RBC % (auto) Neutrophils % (Manual) Band Neutrophils % Lymphocytes % (Manual) Prolymphocyte % Reactive Lymphs % (Man) Monocytes % (Manual) Eosinophils % (Manual) Basophils % (Manual) Metamyelocytes % (Man) Myelocytes % (Man) Promyelocytes % (Man) Blast Cells % (Manual) Plasma Cell % (Manual) Other Cells % Nucleated RBC % Neutrophils # (Manual) Band Neutrophils # Total Absolute Neuts Lymphocytes # (Manual) Prolymphocyte # Reactive Lymphs # Total Abs Lymphocytes Monocytes # (Manual) Eosinophils # (Manual) Basophils # (Manual) Metamyelocytes # (Man) Myelocytes # (Manual) Promyelocytes # (Man) Blast Cells # (Man) Plasma Cell # (Manual) Other Cells # Nucleated RBCs # (Man) Hypersegmented Neuts Hyposegmented Neuts Hypogranular Neuts Large Granular Lymphs # Lrg Granular Lymphs Hairy Cells Smudge Cells Toxic Granulation Toxic Vacuolation Dohle Bodies Grecia Rods Platelet Estimate Hypogranular Platelets Giant Platelets Platelet Satelliting RBC Morphology Polychromasia Hypochromasia Poikilocytosis Basophilic Stippling Anisocytosis Microcytosis Macrocytosis Spherocytes Pappenheimer Bodies Sickle Cells Target Cells Tear Drop Cells Ovalocytes Stomatocytes Friedman-[place] Bodies Echinocytes Acanthocytes (Spur) Rouleaux RBC Agglutinates Schistocytes Sezary Cell PT INR APTT PTT Ratio VBG pH VBG pCO2 VBG pO2 VBG HCO3 VBG O2 Saturation VBG Base Excess Sodium Cancelled Potassium 4.2 Cancelled Chloride 101 Cancelled Carbon Dioxide 30 Anion Gap BUN Creatinine Est Cr Clr Drug Dosing eGFR BUN/Creatinine Ratio Glucose POC Glucose Lactate Calcium Magnesium Total Bilirubin Direct Bilirubin AST ALT Alkaline Phosphatase Troponin I High Sens Total Protein Albumin Globulin Albumin/Globulin Ratio Procalcitonin Urine Color Urine Appearance Urine pH Ur Specific [place] Urine Protein Urine Glucose (UA) Urine Ketones Urine Blood Urine Nitrite Urine Bilirubin Urine Urobilinogen Ur Leukocyte Esterase Urine WBC (Auto) Urine RBC (Auto) U Hyaline Cast (Auto) U Epithel Cells (Auto) Urine Bacteria (Auto) Nasal Screen MRSA (PCR) Stl C. diff Tox B Gene Adenovirus (PCR) B. pertussis DNA (PCR) B.parapertussis DNA PCR C. pneumoniae DNA (PCR) Coronavirus OC43 (PCR) Coronavirus HKU1 (PCR) Coronavirus 229E (PCR) SARS-CoV-2 (PCR) Coronavirus NL63 (PCR) Human Metapneumovir PCR Influenza Type A (PCR) Influenza Type B (PCR) M. pneumoniae (PCR) Parainfluenza 1 (PCR) Parainfluenza 2 (PCR) Parainfluenza 3 (PCR) Parainfluenza 4 (PCR) RSV (RT-PCR) RSV (PCR) Entero/Rhino (PCR) P. aeruginosa (PCR) blaIMP Car res Gene PCR KPC-Carbap Res Gene PCR blaNDM Car Res Gene PCR blaVIM Car Res Gene PCR CTX-M Gene Resistance (PCR) Bld Cult ID Panel PCR Blood Parasites ID 07/25/24 07/25/24 07/25/24 16:00 16:00 16:00 WBC RBC Hgb Hct MCV MCH MCHC RDW Std Deviation RDW Coeff of [place] Plt Count MPV Immature Gran % (Auto) Neut % (Auto) Lymph % (Auto) [place] % (Auto) Eos % (Auto) Baso % (Auto) Neut # (Auto) Lymph # (Auto) [place] # (Auto) Eos # (Auto) Baso # (Auto) Immature Gran # (Auto) Absolute Nucleated RBC Nucleated RBC % (auto) Neutrophils % (Manual) Band Neutrophils % Lymphocytes % (Manual) Prolymphocyte % Reactive Lymphs % (Man) Monocytes % (Manual) Eosinophils % (Manual) Basophils % (Manual) Metamyelocytes % (Man) Myelocytes % (Man) Promyelocytes % (Man) Blast Cells % (Manual) Plasma Cell % (Manual) Other Cells % Nucleated RBC % Neutrophils # (Manual) Band Neutrophils # Total Absolute Neuts Lymphocytes # (Manual) Prolymphocyte # Reactive Lymphs # Total Abs Lymphocytes Monocytes # (Manual) Eosinophils # (Manual) Basophils # (Manual) Metamyelocytes # (Man) Myelocytes # (Manual) Promyelocytes # (Man) Blast Cells # (Man) Plasma Cell # (Manual) Other Cells # Nucleated RBCs # (Man) Hypersegmented Neuts Hyposegmented Neuts Hypogranular Neuts Large Granular Lymphs # Lrg Granular Lymphs Hairy Cells Smudge Cells Toxic Granulation Toxic Vacuolation Dohle Bodies Grecia Rods Platelet Estimate Hypogranular Platelets Giant Platelets Platelet Satelliting RBC Morphology Polychromasia Hypochromasia Poikilocytosis Basophilic Stippling Anisocytosis Microcytosis Macrocytosis Spherocytes Pappenheimer Bodies Sickle Cells Target Cells Tear Drop Cells Ovalocytes Stomatocytes Friedman-[place] Bodies Echinocytes Acanthocytes (Spur) Rouleaux RBC Agglutinates Schistocytes Sezary Cell PT INR APTT PTT Ratio VBG pH VBG pCO2 VBG pO2 VBG HCO3 VBG O2 Saturation VBG Base Excess Sodium Potassium Chloride Carbon Dioxide Cancelled Anion Gap 8 Cancelled BUN 61 H Cancelled Creatinine 4.27 H Est Cr Clr Drug Dosing eGFR BUN/Creatinine Ratio Glucose POC Glucose Lactate Calcium Magnesium Total Bilirubin Direct Bilirubin AST ALT Alkaline Phosphatase Troponin I High Sens Total Protein Albumin Globulin Albumin/Globulin Ratio Procalcitonin Urine Color Urine Appearance Urine pH Ur Specific [place] Urine Protein Urine Glucose (UA) Urine Ketones Urine Blood Urine Nitrite Urine Bilirubin Urine Urobilinogen Ur Leukocyte Esterase Urine WBC (Auto) Urine RBC (Auto) U Hyaline Cast (Auto) U Epithel Cells (Auto) Urine Bacteria (Auto) Nasal Screen MRSA (PCR) Stl C. diff Tox B Gene Adenovirus (PCR) B. pertussis DNA (PCR) B.parapertussis DNA PCR C. pneumoniae DNA (PCR) Coronavirus OC43 (PCR) Coronavirus HKU1 (PCR) Coronavirus 229E (PCR) SARS-CoV-2 (PCR) Coronavirus NL63 (PCR) Human Metapneumovir PCR Influenza Type A (PCR) Influenza Type B (PCR) M. pneumoniae (PCR) Parainfluenza 1 (PCR) Parainfluenza 2 (PCR) Parainfluenza 3 (PCR) Parainfluenza 4 (PCR) RSV (RT-PCR) RSV (PCR) Entero/Rhino (PCR) P. aeruginosa (PCR) blaIMP Car res Gene PCR KPC-Carbap Res Gene PCR blaNDM Car Res Gene PCR blaVIM Car Res Gene PCR CTX-M Gene Resistance (PCR) Bld Cult ID Panel PCR Blood Parasites ID 07/25/24 07/25/24 07/25/24 16:00 16:00 16:00 WBC RBC Hgb Hct MCV MCH MCHC RDW Std Deviation RDW Coeff of [place] Plt Count MPV Immature Gran % (Auto) Neut % (Auto) Lymph % (Auto) [place] % (Auto) Eos % (Auto) Baso % (Auto) Neut # (Auto) Lymph # (Auto) [place] # (Auto) Eos # (Auto) Baso # (Auto) Immature Gran # (Auto) Absolute Nucleated RBC Nucleated RBC % (auto) Neutrophils % (Manual) Band Neutrophils % Lymphocytes % (Manual) Prolymphocyte % Reactive Lymphs % (Man) Monocytes % (Manual) Eosinophils % (Manual) Basophils % (Manual) Metamyelocytes % (Man) Myelocytes % (Man) Promyelocytes % (Man) Blast Cells % (Manual) Plasma Cell % (Manual) Other Cells % Nucleated RBC % Neutrophils # (Manual) Band Neutrophils # Total Absolute Neuts Lymphocytes # (Manual) Prolymphocyte # Reactive Lymphs # Total Abs Lymphocytes Monocytes # (Manual) Eosinophils # (Manual) Basophils # (Manual) Metamyelocytes # (Man) Myelocytes # (Manual) Promyelocytes # (Man) Blast Cells # (Man) Plasma Cell # (Manual) Other Cells # Nucleated RBCs # (Man) Hypersegmented Neuts Hyposegmented Neuts Hypogranular Neuts Large Granular Lymphs # Lrg Granular Lymphs Hairy Cells Smudge Cells Toxic Granulation Toxic Vacuolation Dohle Bodies Grecia Rods Platelet Estimate Hypogranular Platelets Giant Platelets Platelet Satelliting RBC Morphology Polychromasia Hypochromasia Poikilocytosis Basophilic Stippling Anisocytosis Microcytosis Macrocytosis Spherocytes Pappenheimer Bodies Sickle Cells Target Cells Tear Drop Cells Ovalocytes Stomatocytes Friedman-[place] Bodies Echinocytes Acanthocytes (Spur) Rouleaux RBC Agglutinates Schistocytes Sezary Cell PT INR APTT PTT Ratio VBG pH VBG pCO2 VBG pO2 VBG HCO3 VBG O2 Saturation VBG Base Excess Sodium Potassium Chloride Carbon Dioxide Anion Gap BUN Creatinine Cancelled Est Cr Clr Drug Dosing 15.6 Cancelled eGFR 14.18 Cancelled BUN/Creatinine Ratio 14.3 Glucose POC Glucose Lactate Calcium Magnesium Total Bilirubin Direct Bilirubin AST ALT Alkaline Phosphatase Troponin I High Sens Total Protein Albumin Globulin Albumin/Globulin Ratio Procalcitonin Urine Color Urine Appearance Urine pH Ur Specific [place] Urine Protein Urine Glucose (UA) Urine Ketones Urine Blood Urine Nitrite Urine Bilirubin Urine Urobilinogen Ur Leukocyte Esterase Urine WBC (Auto) Urine RBC (Auto) U Hyaline Cast (Auto) U Epithel Cells (Auto) Urine Bacteria (Auto) Nasal Screen MRSA (PCR) Stl C. diff Tox B Gene Adenovirus (PCR) B. pertussis DNA (PCR) B.parapertussis DNA PCR C. pneumoniae DNA (PCR) Coronavirus OC43 (PCR) Coronavirus HKU1 (PCR) Coronavirus 229E (PCR) SARS-CoV-2 (PCR) Coronavirus NL63 (PCR) Human Metapneumovir PCR Influenza Type A (PCR) Influenza Type B (PCR) M. pneumoniae (PCR) Parainfluenza 1 (PCR) Parainfluenza 2 (PCR) Parainfluenza 3 (PCR) Parainfluenza 4 (PCR) RSV (RT-PCR) RSV (PCR) Entero/Rhino (PCR) P. aeruginosa (PCR) blaIMP Car res Gene PCR KPC-Carbap Res Gene PCR blaNDM Car Res Gene PCR blaVIM Car Res Gene PCR CTX-M Gene Resistance (PCR) Bld Cult ID Panel PCR Blood Parasites ID 07/25/24 07/25/24 07/25/24 16:00 16:00 16:00 WBC RBC Hgb Hct MCV MCH MCHC RDW Std Deviation RDW Coeff of [place] Plt Count MPV Immature Gran % (Auto) Neut % (Auto) Lymph % (Auto) [place] % (Auto) Eos % (Auto) Baso % (Auto) Neut # (Auto) Lymph # (Auto) [place] # (Auto) Eos # (Auto) Baso # (Auto) Immature Gran # (Auto) Absolute Nucleated RBC Nucleated RBC % (auto) Neutrophils % (Manual) Band Neutrophils % Lymphocytes % (Manual) Prolymphocyte % Reactive Lymphs % (Man) Monocytes % (Manual) Eosinophils % (Manual) Basophils % (Manual) Metamyelocytes % (Man) Myelocytes % (Man) Promyelocytes % (Man) Blast Cells % (Manual) Plasma Cell % (Manual) Other Cells % Nucleated RBC % Neutrophils # (Manual) Band Neutrophils # Total Absolute Neuts Lymphocytes # (Manual) Prolymphocyte # Reactive Lymphs # Total Abs Lymphocytes Monocytes # (Manual) Eosinophils # (Manual) Basophils # (Manual) Metamyelocytes # (Man) Myelocytes # (Manual) Promyelocytes # (Man) Blast Cells # (Man) Plasma Cell # (Manual) Other Cells # Nucleated RBCs # (Man) Hypersegmented Neuts Hyposegmented Neuts Hypogranular Neuts Large Granular Lymphs # Lrg Granular Lymphs Hairy Cells Smudge Cells Toxic Granulation Toxic Vacuolation Dohle Bodies Grecia Rods Platelet Estimate Hypogranular Platelets Giant Platelets Platelet Satelliting RBC Morphology Polychromasia Hypochromasia Poikilocytosis Basophilic Stippling Anisocytosis Microcytosis Macrocytosis Spherocytes Pappenheimer Bodies Sickle Cells Target Cells Tear Drop Cells Ovalocytes Stomatocytes Friedman-[place] Bodies Echinocytes Acanthocytes (Spur) Rouleaux RBC Agglutinates Schistocytes Sezary Cell PT INR APTT PTT Ratio VBG pH VBG pCO2 VBG pO2 VBG HCO3 VBG O2 Saturation VBG Base Excess Sodium Potassium Chloride Carbon Dioxide Anion Gap BUN Creatinine Est Cr Clr Drug Dosing eGFR BUN/Creatinine Ratio Cancelled Glucose 166 H Cancelled POC Glucose Lactate Calcium 7.6 L Cancelled Magnesium 1.7 Total Bilirubin Direct Bilirubin AST ALT Alkaline Phosphatase Troponin I High Sens Total Protein Albumin Globulin Albumin/Globulin Ratio Procalcitonin Urine Color Urine Appearance Urine pH Ur Specific [place] Urine Protein Urine Glucose (UA) Urine Ketones Urine Blood Urine Nitrite Urine Bilirubin Urine Urobilinogen Ur Leukocyte Esterase Urine WBC (Auto) Urine RBC (Auto) U Hyaline Cast (Auto) U Epithel Cells (Auto) Urine Bacteria (Auto) Nasal Screen MRSA (PCR) Stl C. diff Tox B Gene Adenovirus (PCR) B. pertussis DNA (PCR) B.parapertussis DNA PCR C. pneumoniae DNA (PCR) Coronavirus OC43 (PCR) Coronavirus HKU1 (PCR) Coronavirus 229E (PCR) SARS-CoV-2 (PCR) Coronavirus NL63 (PCR) Human Metapneumovir PCR Influenza Type A (PCR) Influenza Type B (PCR) M. pneumoniae (PCR) Parainfluenza 1 (PCR) Parainfluenza 2 (PCR) Parainfluenza 3 (PCR) Parainfluenza 4 (PCR) RSV (RT-PCR) RSV (PCR) Entero/Rhino (PCR) P. aeruginosa (PCR) blaIMP Car res Gene PCR KPC-Carbap Res Gene PCR blaNDM Car Res Gene PCR blaVIM Car Res Gene PCR CTX-M Gene Resistance (PCR) Bld Cult ID Panel PCR Blood Parasites ID 07/25/24 07/25/24 07/25/24 16:00 16:00 16:00 WBC RBC Hgb Hct MCV MCH MCHC RDW Std Deviation RDW Coeff of [place] Plt Count MPV Immature Gran % (Auto) Neut % (Auto) Lymph % (Auto) [place] % (Auto) Eos % (Auto) Baso % (Auto) Neut # (Auto) Lymph # (Auto) [place] # (Auto) Eos # (Auto) Baso # (Auto) Immature Gran # (Auto) Absolute Nucleated RBC Nucleated RBC % (auto) Neutrophils % (Manual) Band Neutrophils % Lymphocytes % (Manual) Prolymphocyte % Reactive Lymphs % (Man) Monocytes % (Manual) Eosinophils % (Manual) Basophils % (Manual) Metamyelocytes % (Man) Myelocytes % (Man) Promyelocytes % (Man) Blast Cells % (Manual) Plasma Cell % (Manual) Other Cells % Nucleated RBC % Neutrophils # (Manual) Band Neutrophils # Total Absolute Neuts Lymphocytes # (Manual) Prolymphocyte # Reactive Lymphs # Total Abs Lymphocytes Monocytes # (Manual) Eosinophils # (Manual) Basophils # (Manual) Metamyelocytes # (Man) Myelocytes # (Manual) Promyelocytes # (Man) Blast Cells # (Man) Plasma Cell # (Manual) Other Cells # Nucleated RBCs # (Man) Hypersegmented Neuts Hyposegmented Neuts Hypogranular Neuts Large Granular Lymphs # Lrg Granular Lymphs Hairy Cells Smudge Cells Toxic Granulation Toxic Vacuolation Dohle Bodies [place] Rods Platelet Estimate Hypogranular Platelets Giant Platelets Platelet Satelliting RBC Morphology Polychromasia Hypochromasia Poikilocytosis Basophilic Stippling Anisocytosis Microcytosis Macrocytosis Spherocytes Pappenheimer Bodies Sickle Cells Target Cells Tear Drop Cells Ovalocytes Stomatocytes Friedman-[place] Bodies Echinocytes Acanthocytes (Spur) Rouleaux RBC Agglutinates Schistocytes Sezary Cell PT INR APTT PTT Ratio VBG pH VBG pCO2 VBG pO2 VBG HCO3 VBG O2 Saturation VBG Base Excess Sodium Potassium Chloride Carbon Dioxide Anion Gap BUN Creatinine Est Cr Clr Drug Dosing eGFR BUN/Creatinine Ratio Glucose POC Glucose Lactate Calcium Magnesium Cancelled Total Bilirubin 1.3 H Cancelled Direct Bilirubin 0.6 H Cancelled AST 119 H ALT Alkaline Phosphatase Troponin I High Sens Total Protein Albumin Globulin Albumin/Globulin Ratio Procalcitonin Urine Color Urine Appearance Urine pH Ur Specific [place] Urine Protein Urine Glucose (UA) Urine Ketones Urine Blood Urine Nitrite Urine Bilirubin Urine Urobilinogen Ur Leukocyte Esterase Urine WBC (Auto) Urine RBC (Auto) U Hyaline Cast (Auto) U Epithel Cells (Auto) Urine Bacteria (Auto) Nasal Screen MRSA (PCR) Stl C. diff Tox B Gene Adenovirus (PCR) B. pertussis DNA (PCR) B.parapertussis DNA PCR C. pneumoniae DNA (PCR) Coronavirus OC43 (PCR) Coronavirus HKU1 (PCR) Coronavirus 229E (PCR) SARS-CoV-2 (PCR) Coronavirus NL63 (PCR) Human Metapneumovir PCR Influenza Type A (PCR) Influenza Type B (PCR) M. pneumoniae (PCR) Parainfluenza 1 (PCR) Parainfluenza 2 (PCR) Parainfluenza 3 (PCR) Parainfluenza 4 (PCR) RSV (RT-PCR) RSV (PCR) Entero/Rhino (PCR) P. aeruginosa (PCR) blaIMP Car res Gene PCR KPC-Carbap Res Gene PCR blaNDM Car Res Gene PCR blaVIM Car Res Gene PCR CTX-M Gene Resistance (PCR) Bld Cult ID Panel PCR Blood Parasites ID 07/25/24 07/25/24 07/25/24 16:00 16:00 16:00 WBC RBC Hgb Hct MCV MCH MCHC RDW Std Deviation RDW Coeff of [place] Plt Count MPV Immature Gran % (Auto) Neut % (Auto) Lymph % (Auto) [place] % (Auto) Eos % (Auto) Baso % (Auto) Neut # (Auto) Lymph # (Auto) [place] # (Auto) Eos # (Auto) Baso # (Auto) Immature Gran # (Auto) Absolute Nucleated RBC Nucleated RBC % (auto) Neutrophils % (Manual) Band Neutrophils % Lymphocytes % (Manual) Prolymphocyte % Reactive Lymphs % (Man) Monocytes % (Manual) Eosinophils % (Manual) Basophils % (Manual) Metamyelocytes % (Man) Myelocytes % (Man) Promyelocytes % (Man) Blast Cells % (Manual) Plasma Cell % (Manual) Other Cells % Nucleated RBC % Neutrophils # (Manual) Band Neutrophils # Total Absolute Neuts Lymphocytes # (Manual) Prolymphocyte # Reactive Lymphs # Total Abs Lymphocytes Monocytes # (Manual) Eosinophils # (Manual) Basophils # (Manual) Metamyelocytes # (Man) Myelocytes # (Manual) Promyelocytes # (Man) Blast Cells # (Man) Plasma Cell # (Manual) Other Cells # Nucleated RBCs # (Man) Hypersegmented Neuts Hyposegmented Neuts Hypogranular Neuts Large Granular Lymphs # Lrg Granular Lymphs Hairy Cells Smudge Cells Toxic Granulation Toxic Vacuolation Dohle Bodies [place] Rods Platelet Estimate Hypogranular Platelets Giant Platelets Platelet Satelliting RBC Morphology Polychromasia Hypochromasia Poikilocytosis Basophilic Stippling Anisocytosis Microcytosis Macrocytosis Spherocytes Pappenheimer Bodies Sickle Cells Target Cells Tear Drop Cells Ovalocytes Stomatocytes Friedman-[place] Bodies Echinocytes Acanthocytes (Spur) Rouleaux RBC Agglutinates Schistocytes Sezary Cell PT INR APTT PTT Ratio VBG pH VBG pCO2 VBG pO2 VBG HCO3 VBG O2 Saturation VBG Base Excess Sodium Potassium Chloride Carbon Dioxide Anion Gap BUN Creatinine Est Cr Clr Drug Dosing eGFR BUN/Creatinine Ratio Glucose POC Glucose Lactate Calcium Magnesium Total Bilirubin Direct Bilirubin AST Cancelled ALT 79 H Cancelled Alkaline Phosphatase 530 H Cancelled Troponin I High Sens 61.6 H* Total Protein Albumin Globulin Albumin/Globulin Ratio Procalcitonin Urine Color Urine Appearance Urine pH Ur Specific [place] Urine Protein Urine Glucose (UA) Urine Ketones Urine Blood Urine Nitrite Urine Bilirubin Urine Urobilinogen Ur Leukocyte Esterase Urine WBC (Auto) Urine RBC (Auto) U Hyaline Cast (Auto) U Epithel Cells (Auto) Urine Bacteria (Auto) Nasal Screen MRSA (PCR) Stl C. diff Tox B Gene Adenovirus (PCR) B. pertussis DNA (PCR) B.parapertussis DNA PCR C. pneumoniae DNA (PCR) Coronavirus OC43 (PCR) Coronavirus HKU1 (PCR) Coronavirus 229E (PCR) SARS-CoV-2 (PCR) Coronavirus NL63 (PCR) Human Metapneumovir PCR Influenza Type A (PCR) Influenza Type B (PCR) M. pneumoniae (PCR) Parainfluenza 1 (PCR) Parainfluenza 2 (PCR) Parainfluenza 3 (PCR) Parainfluenza 4 (PCR) RSV (RT-PCR) RSV (PCR) Entero/Rhino (PCR) P. aeruginosa (PCR) blaIMP Car res Gene PCR KPC-Carbap Res Gene PCR blaNDM Car Res Gene PCR blaVIM Car Res Gene PCR CTX-M Gene Resistance (PCR) Bld Cult ID Panel PCR Blood Parasites ID 07/25/24 07/25/24 07/25/24 16:00 16:00 16:00 WBC RBC Hgb Hct MCV MCH MCHC RDW Std Deviation RDW Coeff of [place] Plt Count MPV Immature Gran % (Auto) Neut % (Auto) Lymph % (Auto) [place] % (Auto) Eos % (Auto) Baso % (Auto) Neut # (Auto) Lymph # (Auto) [place] # (Auto) Eos # (Auto) Baso # (Auto) Immature Gran # (Auto) Absolute Nucleated RBC Nucleated RBC % (auto) Neutrophils % (Manual) Band Neutrophils % Lymphocytes % (Manual) Prolymphocyte % Reactive Lymphs % (Man) Monocytes % (Manual) Eosinophils % (Manual) Basophils % (Manual) Metamyelocytes % (Man) Myelocytes % (Man) Promyelocytes % (Man) Blast Cells % (Manual) Plasma Cell % (Manual) Other Cells % Nucleated RBC % Neutrophils # (Manual) Band Neutrophils # Total Absolute Neuts Lymphocytes # (Manual) Prolymphocyte # Reactive Lymphs # Total Abs Lymphocytes Monocytes # (Manual) Eosinophils # (Manual) Basophils # (Manual) Metamyelocytes # (Man) Myelocytes # (Manual) Promyelocytes # (Man) Blast Cells # (Man) Plasma Cell # (Manual) Other Cells # Nucleated RBCs # (Man) Hypersegmented Neuts Hyposegmented Neuts Hypogranular Neuts Large Granular Lymphs # Lrg Granular Lymphs Hairy Cells Smudge Cells Toxic Granulation Toxic Vacuolation Dohle Bodies Grecia Rods Platelet Estimate Hypogranular Platelets Giant Platelets Platelet Satelliting RBC Morphology Polychromasia Hypochromasia Poikilocytosis Basophilic Stippling Anisocytosis Microcytosis Macrocytosis Spherocytes Pappenheimer Bodies Sickle Cells Target Cells Tear Drop Cells Ovalocytes Stomatocytes Friedman-[place] Bodies Echinocytes Acanthocytes (Spur) Rouleaux RBC Agglutinates Schistocytes Sezary Cell PT INR APTT PTT Ratio VBG pH VBG pCO2 VBG pO2 VBG HCO3 VBG O2 Saturation VBG Base Excess Sodium Potassium Chloride Carbon Dioxide Anion Gap BUN Creatinine Est Cr Clr Drug Dosing eGFR BUN/Creatinine Ratio Glucose POC Glucose Lactate Calcium Magnesium Total Bilirubin Direct Bilirubin AST ALT Alkaline Phosphatase Troponin I High Sens Cancelled Total Protein 5.1 L Cancelled Albumin 2.8 L Cancelled Globulin 2.3 L Albumin/Globulin Ratio 1.2 Procalcitonin 99.90 H Urine Color Urine Appearance Urine pH Ur Specific [place] Urine Protein Urine Glucose (UA) Urine Ketones Urine Blood Urine Nitrite Urine Bilirubin Urine Urobilinogen Ur Leukocyte Esterase Urine WBC (Auto) Urine RBC (Auto) U Hyaline Cast (Auto) U Epithel Cells (Auto) Urine Bacteria (Auto) Nasal Screen MRSA (PCR) Stl C. diff Tox B Gene Adenovirus (PCR) B. pertussis DNA (PCR) B.parapertussis DNA PCR C. pneumoniae DNA (PCR) Coronavirus OC43 (PCR) Coronavirus HKU1 (PCR) Coronavirus 229E (PCR) SARS-CoV-2 (PCR) Coronavirus NL63 (PCR) Human Metapneumovir PCR Influenza Type A (PCR) Influenza Type B (PCR) M. pneumoniae (PCR) Parainfluenza 1 (PCR) Parainfluenza 2 (PCR) Parainfluenza 3 (PCR) Parainfluenza 4 (PCR) RSV (RT-PCR) RSV (PCR) Entero/Rhino (PCR) P. aeruginosa (PCR) blaIMP Car res Gene PCR KPC-Carbap Res Gene PCR blaNDM Car Res Gene PCR blaVIM Car Res Gene PCR CTX-M Gene Resistance (PCR) Bld Cult ID Panel PCR Blood Parasites ID Cancelled 07/25/24 07/25/24 07/25/24 16:17 17:05 17:54 WBC 0.60 L* RBC 3.06 L Hgb 9.0 L Hct 27.6 L MCV 90.2 MCH 29.4 MCHC 32.6 RDW Std Deviation 48.5 H RDW Coeff of [place] 14.6 H Plt Count 18 L* MPV 11.1 Immature Gran % (Auto) Neut % (Auto) Lymph % (Auto) [place] % (Auto) Eos % (Auto) Baso % (Auto) Neut # (Auto) Lymph # (Auto) [place] # (Auto) Eos # (Auto) Baso # (Auto) Immature Gran # (Auto) Absolute Nucleated RBC Nucleated RBC % (auto) Neutrophils % (Manual) 15 Band Neutrophils % Lymphocytes % (Manual) 81 Prolymphocyte % Reactive Lymphs % (Man) Monocytes % (Manual) 1 Eosinophils % (Manual) 3 Basophils % (Manual) Metamyelocytes % (Man) Myelocytes % (Man) Promyelocytes % (Man) Blast Cells % (Manual) Plasma Cell % (Manual) Other Cells % Nucleated RBC % Neutrophils # (Manual) 0.09 L Band Neutrophils # Total Absolute Neuts 0.09 L* Lymphocytes # (Manual) 0.49 L Prolymphocyte # Reactive Lymphs # Total Abs Lymphocytes 0.49 L Monocytes # (Manual) 0.01 L Eosinophils # (Manual) 0.02 Basophils # (Manual) Metamyelocytes # (Man) Myelocytes # (Manual) Promyelocytes # (Man) Blast Cells # (Man) Plasma Cell # (Manual) Other Cells # Nucleated RBCs # (Man) Hypersegmented Neuts Hyposegmented Neuts Hypogranular Neuts Large Granular Lymphs # Lrg Granular Lymphs Hairy Cells Smudge Cells Toxic Granulation Toxic Vacuolation Dohle Bodies Grecia Rods Platelet Estimate Hypogranular Platelets Giant Platelets Platelet Satelliting RBC Morphology Unremarkable Polychromasia Hypochromasia Poikilocytosis Basophilic Stippling Anisocytosis Microcytosis Macrocytosis Spherocytes Pappenheimer Bodies Sickle Cells Target Cells Tear Drop Cells Ovalocytes Stomatocytes Friedman-[place] Bodies Echinocytes Acanthocytes (Spur) Rouleaux RBC Agglutinates Schistocytes Sezary Cell PT INR APTT PTT Ratio VBG pH 7.46 H VBG pCO2 39 VBG pO2 59 VBG HCO3 28 VBG O2 Saturation 92.5 VBG Base Excess 3.7 Sodium Potassium Chloride Carbon Dioxide Anion Gap BUN Creatinine Est Cr Clr Drug Dosing eGFR BUN/Creatinine Ratio Glucose POC Glucose Lactate Calcium Magnesium Total Bilirubin Direct Bilirubin AST ALT Alkaline Phosphatase Troponin I High Sens 61.2 H* Total Protein Albumin Globulin Albumin/Globulin Ratio Procalcitonin Urine Color Urine Appearance Urine pH Ur Specific [place] Urine Protein Urine Glucose (UA) Urine Ketones Urine Blood Urine Nitrite Urine Bilirubin Urine Urobilinogen Ur Leukocyte Esterase Urine WBC (Auto) Urine RBC (Auto) U Hyaline Cast (Auto) U Epithel Cells (Auto) Urine Bacteria (Auto) Nasal Screen MRSA (PCR) Stl C. diff Tox B Gene Adenovirus (PCR) B. pertussis DNA (PCR) B.parapertussis DNA PCR C. pneumoniae DNA (PCR) Coronavirus OC43 (PCR) Coronavirus HKU1 (PCR) Coronavirus 229E (PCR) SARS-CoV-2 (PCR) Coronavirus NL63 (PCR) Human Metapneumovir PCR Influenza Type A (PCR) Influenza Type B (PCR) M. pneumoniae (PCR) Parainfluenza 1 (PCR) Parainfluenza 2 (PCR) Parainfluenza 3 (PCR) Parainfluenza 4 (PCR) RSV (RT-PCR) RSV (PCR) Entero/Rhino (PCR) P. aeruginosa (PCR) blaIMP Car res Gene PCR KPC-Carbap Res Gene PCR blaNDM Car Res Gene PCR blaVIM Car Res Gene PCR CTX-M Gene Resistance (PCR) Bld Cult ID Panel PCR Blood Parasites ID 07/25/24 07/25/24 07/25/24 19:54 19:57 20:17 WBC RBC Hgb Hct MCV MCH MCHC RDW Std Deviation RDW Coeff of [place] Plt Count MPV Immature Gran % (Auto) Neut % (Auto) Lymph % (Auto) [place] % (Auto) Eos % (Auto) Baso % (Auto) Neut # (Auto) Lymph # (Auto) [place] # (Auto) Eos # (Auto) Baso # (Auto) Immature Gran # (Auto) Absolute Nucleated RBC Nucleated RBC % (auto) Neutrophils % (Manual) Band Neutrophils % Lymphocytes % (Manual) Prolymphocyte % Reactive Lymphs % (Man) Monocytes % (Manual) Eosinophils % (Manual) Basophils % (Manual) Metamyelocytes % (Man) Myelocytes % (Man) Promyelocytes % (Man) Blast Cells % (Manual) Plasma Cell % (Manual) Other Cells % Nucleated RBC % Neutrophils # (Manual) Band Neutrophils # Total Absolute Neuts Lymphocytes # (Manual) Prolymphocyte # Reactive Lymphs # Total Abs Lymphocytes Monocytes # (Manual) Eosinophils # (Manual) Basophils # (Manual) Metamyelocytes # (Man) Myelocytes # (Manual) Promyelocytes # (Man) Blast Cells # (Man) Plasma Cell # (Manual) Other Cells # Nucleated RBCs # (Man) Hypersegmented Neuts Hyposegmented Neuts Hypogranular Neuts Large Granular Lymphs # Lrg Granular Lymphs Hairy Cells Smudge Cells Toxic Granulation Toxic Vacuolation Dohle Bodies Grecia Rods Platelet Estimate Hypogranular Platelets Giant Platelets Platelet Satelliting RBC Morphology Polychromasia Hypochromasia Poikilocytosis Basophilic Stippling Anisocytosis Microcytosis Macrocytosis Spherocytes Pappenheimer Bodies Sickle Cells Target Cells Tear Drop Cells Ovalocytes Stomatocytes Friedman-[place] Bodies Echinocytes Acanthocytes (Spur) Rouleaux RBC Agglutinates Schistocytes Sezary Cell PT INR APTT PTT Ratio VBG pH VBG pCO2 VBG pO2 VBG HCO3 VBG O2 Saturation VBG Base Excess Sodium Potassium Chloride Carbon Dioxide Anion Gap BUN Creatinine Est Cr Clr Drug Dosing eGFR BUN/Creatinine Ratio Glucose POC Glucose 106 H Lactate Calcium Magnesium Total Bilirubin Direct Bilirubin AST ALT Alkaline Phosphatase Troponin I High Sens Total Protein Albumin Globulin Albumin/Globulin Ratio Procalcitonin Urine Color Yellow Urine Appearance Clear Urine pH 8.0 H Ur Specific [place] 1.011 Urine Protein 2+ H Urine Glucose (UA) Negative Urine Ketones Negative Urine Blood 1+ H Urine Nitrite Negative Urine Bilirubin Negative Urine Urobilinogen Negative Ur Leukocyte Esterase Negative Urine WBC (Auto) 0-5 Urine RBC (Auto) 3-5 H U Hyaline Cast (Auto) 0-2 U Epithel Cells (Auto) 0-2 Urine Bacteria (Auto) None Seen Nasal Screen MRSA (PCR) Negative Stl C. diff Tox B Gene Adenovirus (PCR) B. pertussis DNA (PCR) B.parapertussis DNA PCR C. pneumoniae DNA (PCR) Coronavirus OC43 (PCR) Coronavirus HKU1 (PCR) Coronavirus 229E (PCR) SARS-CoV-2 (PCR) Coronavirus NL63 (PCR) Human Metapneumovir PCR Influenza Type A (PCR) Influenza Type B (PCR) M. pneumoniae (PCR) Parainfluenza 1 (PCR) Parainfluenza 2 (PCR) Parainfluenza 3 (PCR) Parainfluenza 4 (PCR) RSV (RT-PCR) RSV (PCR) Entero/Rhino (PCR) P. aeruginosa (PCR) blaIMP Car res Gene PCR KPC-Carbap Res Gene PCR blaNDM Car Res Gene PCR blaVIM Car Res Gene PCR CTX-M Gene Resistance (PCR) Bld Cult ID Panel PCR Blood Parasites ID 07/25/24 07/25/24 07/26/24 21:06 23:15 06:32 WBC 0.62 L* RBC 2.88 L Hgb 8.6 L Hct 26.2 L MCV 91.0 MCH 29.9 MCHC 32.8 RDW Std Deviation 49.2 H RDW Coeff of [place] 14.7 H Plt Count 20 L* MPV 12.5 H Immature Gran % (Auto) Neut % (Auto) Lymph % (Auto) [place] % (Auto) Eos % (Auto) Baso % (Auto) Neut # (Auto) Lymph # (Auto) [place] # (Auto) Eos # (Auto) Baso # (Auto) Immature Gran # (Auto) Absolute Nucleated RBC Nucleated RBC % (auto) Neutrophils % (Manual) Band Neutrophils % Lymphocytes % (Manual) Prolymphocyte % Reactive Lymphs % (Man) Monocytes % (Manual) Eosinophils % (Manual) Basophils % (Manual) Metamyelocytes % (Man) Myelocytes % (Man) Promyelocytes % (Man) Blast Cells % (Manual) Plasma Cell % (Manual) Other Cells % Nucleated RBC % Neutrophils # (Manual) Band Neutrophils # Total Absolute Neuts Lymphocytes # (Manual) Prolymphocyte # Reactive Lymphs # Total Abs Lymphocytes Monocytes # (Manual) Eosinophils # (Manual) Basophils # (Manual) Metamyelocytes # (Man) Myelocytes # (Manual) Promyelocytes # (Man) Blast Cells # (Man) Plasma Cell # (Manual) Other Cells # Nucleated RBCs # (Man) Hypersegmented Neuts Hyposegmented Neuts Hypogranular Neuts Large Granular Lymphs # Lrg Granular Lymphs Hairy Cells Smudge Cells Toxic Granulation Toxic Vacuolation Dohle Bodies [place] Rods Platelet Estimate Hypogranular Platelets Giant Platelets Platelet Satelliting RBC Morphology Polychromasia Hypochromasia Poikilocytosis Basophilic Stippling Anisocytosis Microcytosis Macrocytosis Spherocytes Pappenheimer Bodies Sickle Cells Target Cells Tear Drop Cells Ovalocytes Stomatocytes Friedman-[place] Bodies Echinocytes Acanthocytes (Spur) Rouleaux RBC Agglutinates Schistocytes Sezary Cell PT INR APTT PTT Ratio VBG pH VBG pCO2 VBG pO2 VBG HCO3 VBG O2 Saturation VBG Base Excess Sodium 140 Potassium 4.7 Chloride 101 Carbon Dioxide 29 Anion Gap 10 BUN 70 H Creatinine 4.77 H* D Est Cr Clr Drug Dosing 13.9 eGFR 12.42 BUN/Creatinine Ratio 14.7 Glucose 99 POC Glucose Lactate Calcium 7.9 L Magnesium 1.7 Total Bilirubin 1.8 H Direct Bilirubin AST 84 H ALT 71 H Alkaline Phosphatase 437 H Troponin I High Sens Total Protein 5.0 L Albumin 2.9 L Globulin 2.1 L Albumin/Globulin Ratio 1.4 Procalcitonin Urine Color Urine Appearance Urine pH Ur Specific [place] Urine Protein Urine Glucose (UA) Urine Ketones Urine Blood Urine Nitrite Urine Bilirubin Urine Urobilinogen Ur Leukocyte Esterase Urine WBC (Auto) Urine RBC (Auto) U Hyaline Cast (Auto) U Epithel Cells (Auto) Urine Bacteria (Auto) Nasal Screen MRSA (PCR) Stl C. diff Tox B Gene Negative Cdiff Gene Adenovirus (PCR) Not Detected B. pertussis DNA (PCR) Not Detected B.parapertussis DNA PCR Not Detected C. pneumoniae DNA (PCR) Not Detected Coronavirus OC43 (PCR) Not Detected Coronavirus HKU1 (PCR) Not Detected Coronavirus 229E (PCR) Not Detected SARS-CoV-2 (PCR) Not Detected Coronavirus NL63 (PCR) Not Detected Human Metapneumovir PCR Not Detected Influenza Type A (PCR) Not Detected Influenza Type B (PCR) Not Detected M. pneumoniae (PCR) Not Detected Parainfluenza 1 (PCR) Not Detected Parainfluenza 2 (PCR) Not Detected Parainfluenza 3 (PCR) Not Detected Parainfluenza 4 (PCR) Not Detected RSV (RT-PCR) RSV (PCR) Not Detected Entero/Rhino (PCR) Not Detected P. aeruginosa (PCR) blaIMP Car res Gene PCR KPC-Carbap Res Gene PCR blaNDM Car Res Gene PCR blaVIM Car Res Gene PCR CTX-M Gene Resistance (PCR) Bld Cult ID Panel PCR Blood Parasites ID 07/26/24 07:34 WBC RBC Hgb Hct MCV MCH MCHC RDW Std Deviation RDW Coeff of [place] Plt Count MPV Immature Gran % (Auto) Neut % (Auto) Lymph % (Auto) [place] % (Auto) Eos % (Auto) Baso % (Auto) Neut # (Auto) Lymph # (Auto) [place] # (Auto) Eos # (Auto) Baso # (Auto) Immature Gran # (Auto) Absolute Nucleated RBC Nucleated RBC % (auto) Neutrophils % (Manual) Band Neutrophils % Lymphocytes % (Manual) Prolymphocyte % Reactive Lymphs % (Man) Monocytes % (Manual) Eosinophils % (Manual) Basophils % (Manual) Metamyelocytes % (Man) Myelocytes % (Man) Promyelocytes % (Man) Blast Cells % (Manual) Plasma Cell % (Manual) Other Cells % Nucleated RBC % Neutrophils # (Manual) Band Neutrophils # Total Absolute Neuts Lymphocytes # (Manual) Prolymphocyte # Reactive Lymphs # Total Abs Lymphocytes Monocytes # (Manual) Eosinophils # (Manual) Basophils # (Manual) Metamyelocytes # (Man) Myelocytes # (Manual) Promyelocytes # (Man) Blast Cells # (Man) Plasma Cell # (Manual) Other Cells # Nucleated RBCs # (Man) Hypersegmented Neuts Hyposegmented Neuts Hypogranular Neuts Large Granular Lymphs # Lrg Granular Lymphs Hairy Cells Smudge Cells Toxic Granulation Toxic Vacuolation Dohle Bodies [place] Rods Platelet Estimate Hypogranular Platelets Giant Platelets Platelet Satelliting RBC Morphology Polychromasia Hypochromasia Poikilocytosis Basophilic Stippling Anisocytosis Microcytosis Macrocytosis Spherocytes Pappenheimer Bodies Sickle Cells Target Cells Tear Drop Cells Ovalocytes Stomatocytes Friedman-[place] Bodies Echinocytes Acanthocytes (Spur) Rouleaux RBC Agglutinates Schistocytes Sezary Cell PT INR APTT PTT Ratio VBG pH VBG pCO2 VBG pO2 VBG HCO3 VBG O2 Saturation VBG Base Excess Sodium Potassium Chloride Carbon Dioxide Anion Gap BUN Creatinine Est Cr Clr Drug Dosing eGFR BUN/Creatinine Ratio Glucose POC Glucose 102 H Lactate Calcium Magnesium Total Bilirubin Direct Bilirubin AST ALT Alkaline Phosphatase Troponin I High Sens Total Protein Albumin Globulin Albumin/Globulin Ratio Procalcitonin Urine Color Urine Appearance Urine pH Ur Specific [place] Urine Protein Urine Glucose (UA) Urine Ketones Urine Blood Urine Nitrite Urine Bilirubin Urine Urobilinogen Ur Leukocyte Esterase Urine WBC (Auto) Urine RBC (Auto) U Hyaline Cast (Auto) U Epithel Cells (Auto) Urine Bacteria (Auto) Nasal Screen MRSA (PCR) Stl C. diff Tox B Gene Adenovirus (PCR) B. pertussis DNA (PCR) B.parapertussis DNA PCR C. pneumoniae DNA (PCR) Coronavirus OC43 (PCR) Coronavirus HKU1 (PCR) Coronavirus 229E (PCR) SARS-CoV-2 (PCR) Coronavirus NL63 (PCR) Human Metapneumovir PCR Influenza Type A (PCR) Influenza Type B (PCR) M. pneumoniae (PCR) Parainfluenza 1 (PCR) Parainfluenza 2 (PCR) Parainfluenza 3 (PCR) Parainfluenza 4 (PCR) RSV (RT-PCR) RSV (PCR) Entero/Rhino (PCR) P. aeruginosa (PCR) blaIMP Car res Gene PCR KPC-Carbap Res Gene PCR blaNDM Car Res Gene PCR blaVIM Car Res Gene PCR CTX-M Gene Resistance (PCR) Bld Cult ID Panel PCR Blood Parasites ID Laboratory Results WBC 0.62 K/ul (4.8-10.8) L* 07/26/24 06:32 RBC 2.88 M/uL (4.70-6.10) L 07/26/24 06:32 Hgb 8.6 g/dl (14.0-18.0) L 07/26/24 06:32 Hct 26.2 % (42.0-52.0) L 07/26/24 06:32 MCV 91.0 fL (80.0-100.0) 07/26/24 06:32 MCH 29.9 pg (25.0-34.0) 07/26/24 06:32 MCHC 32.8 g/dL (32.0-36.0) 07/26/24 06:32 RDW Std Deviation 49.2 fL (36.4-46.3) H 07/26/24 06:32 RDW Coeff of [place] 14.7 % (11.5-14.5) H 07/26/24 06:32 Plt Count 20 K/uL (130-400) L* 07/26/24 06:32 MPV 12.5 fL (9.4-12.4) H 07/26/24 06:32 Immature Gran % (Auto) Cancelled 07/25/24 16:00 Neut % (Auto) Cancelled 07/25/24 16:00 Lymph % (Auto) Cancelled 07/25/24 16:00 [place] % (Auto) Cancelled 07/25/24 16:00 Eos % (Auto) Cancelled 07/25/24 16:00 Baso % (Auto) Cancelled 07/25/24 16:00 Neut # (Auto) Cancelled 07/25/24 16:00 Lymph # (Auto) Cancelled 07/25/24 16:00 [place] # (Auto) Cancelled 07/25/24 16:00 Eos # (Auto) Cancelled 07/25/24 16:00 Baso # (Auto) Cancelled 07/25/24 16:00 Immature Gran # (Auto) Cancelled 07/25/24 16:00 Absolute Nucleated RBC Cancelled 07/25/24 16:00 Nucleated RBC % (auto) Cancelled 07/25/24 16:00 Neutrophils % (Manual) 15 % 07/25/24 17:05 Band Neutrophils % Cancelled 07/25/24 16:00 Lymphocytes % (Manual) 81 % 07/25/24 17:05 Prolymphocyte % Cancelled 07/25/24 16:00 Reactive Lymphs % (Man) Cancelled 07/25/24 16:00 Monocytes % (Manual) 1 % 07/25/24 17:05 Eosinophils % (Manual) 3 % 07/25/24 17:05 Basophils % (Manual) Cancelled 07/25/24 16:00 Metamyelocytes % (Man) Cancelled 07/25/24 16:00 Myelocytes % (Man) Cancelled 07/25/24 16:00 Promyelocytes % (Man) Cancelled 07/25/24 16:00 Blast Cells % (Manual) Cancelled 07/25/24 16:00 Plasma Cell % (Manual) Cancelled 07/25/24 16:00 Other Cells % Cancelled 07/25/24 16:00 Nucleated RBC % Cancelled 07/25/24 16:00 Neutrophils # (Manual) 0.09 K/uL (1.40-6.50) L 07/25/24 17:05 Band Neutrophils # Cancelled 07/25/24 16:00 Total Absolute Neuts 0.09 K/uL (1.4-6.5) L* 07/25/24 17:05 Lymphocytes # (Manual) 0.49 K/uL (1.2-3.4) L 07/25/24 17:05 Prolymphocyte # Cancelled 07/25/24 16:00 Reactive Lymphs # Cancelled 07/25/24 16:00 Total Abs Lymphocytes 0.49 K/uL (1.2-3.4) L 07/25/24 17:05 Monocytes # (Manual) 0.01 K/uL (0.11-0.59) L 07/25/24 17:05 Eosinophils # (Manual) 0.02 K/uL (0-0.50) 07/25/24 17:05 Basophils # (Manual) Cancelled 07/25/24 16:00 Metamyelocytes # (Man) Cancelled 07/25/24 16:00 Myelocytes # (Manual) Cancelled 07/25/24 16:00 Promyelocytes # (Man) Cancelled 07/25/24 16:00 Blast Cells # (Man) Cancelled 07/25/24 16:00 Plasma Cell # (Manual) Cancelled 07/25/24 16:00 Other Cells # Cancelled 07/25/24 16:00 Nucleated RBCs # (Man) Cancelled 07/25/24 16:00 Hypersegmented Neuts Cancelled 07/25/24 16:00 Hyposegmented Neuts Cancelled 07/25/24 16:00 Hypogranular Neuts Cancelled 07/25/24 16:00 Large Granular Lymphs Cancelled 07/25/24 16:00 # Lrg Granular Lymphs Cancelled 07/25/24 16:00 Hairy Cells Cancelled 07/25/24 16:00 Smudge Cells Cancelled 07/25/24 16:00 Toxic Granulation Cancelled 07/25/24 16:00 Toxic Vacuolation Cancelled 07/25/24 16:00 Dohle Bodies Cancelled 07/25/24 16:00 Grecia Rods Cancelled 07/25/24 16:00 Platelet Estimate Cancelled 07/25/24 16:00 Hypogranular Platelets Cancelled 07/25/24 16:00 Giant Platelets Cancelled 07/25/24 16:00 Platelet Satelliting Cancelled 07/25/24 16:00 RBC Morphology Unremarkable 07/25/24 17:05 Polychromasia Cancelled 07/25/24 16:00 Hypochromasia Cancelled 07/25/24 16:00 Poikilocytosis Cancelled 07/25/24 16:00 Basophilic Stippling Cancelled 07/25/24 16:00 Anisocytosis Cancelled 07/25/24 16:00 Microcytosis Cancelled 07/25/24 16:00 Macrocytosis Cancelled 07/25/24 16:00 Spherocytes Cancelled 07/25/24 16:00 Pappenheimer Bodies Cancelled 07/25/24 16:00 Sickle Cells Cancelled 07/25/24 16:00 Target Cells Cancelled 07/25/24 16:00 Tear Drop Cells Cancelled 07/25/24 16:00 Ovalocytes Cancelled 07/25/24 16:00 Stomatocytes Cancelled 07/25/24 16:00 Friedman-[place] Bodies Cancelled 07/25/24 16:00 Echinocytes Cancelled 07/25/24 16:00 Acanthocytes (Spur) Cancelled 07/25/24 16:00 Rouleaux Cancelled 07/25/24 16:00 RBC Agglutinates Cancelled 07/25/24 16:00 Schistocytes Cancelled 07/25/24 16:00 Sezary Cell Cancelled 07/25/24 16:00 PT 11.2 Seconds (9.0-12.0) 07/25/24 16:00 INR 1.0 (0.9-1.1) 07/25/24 16:00 APTT 29 Seconds (21-31) 07/25/24 16:00 PTT Ratio 1.1 07/25/24 16:00 VBG pH 7.46 (7.36-7.41) H 07/25/24 16:17 VBG pCO2 39 mmHg (38-50) 07/25/24 16:17 VBG pO2 59 mmHg 07/25/24 16:17 VBG HCO3 28 mmol/L 07/25/24 16:17 VBG O2 Saturation 92.5 % 07/25/24 16:17 VBG Base Excess 3.7 mEq/L 07/25/24 16:17 Sodium 140 mmol/L (136-145) 07/26/24 06:32 Potassium 4.7 mmol/L (3.5-5.1) 07/26/24 06:32 Chloride 101 mmol/L (98-107) 07/26/24 06:32 Carbon Dioxide 29 mmol/L (21-32) 07/26/24 06:32 Anion Gap 10 (3-11) 07/26/24 06:32 BUN 70 mg/dl (6-23) H 07/26/24 06:32 Creatinine 4.77 mg/dl (0.6-1.4) H* D 07/26/24 06:32 Est Cr Clr Drug Dosing 13.9 ml/min 07/26/24 06:32 eGFR 12.42 07/26/24 06:32 BUN/Creatinine Ratio 14.7 (10-20) 07/26/24 06:32 Glucose 99 mg/dl (70-99(Fasting)) 07/26/24 06:32 POC Glucose 102 mg/dl (70-99) H 07/26/24 07:34 Lactate 1.7 mmol/L (0.4-2.0) 07/25/24 15:51 Calcium 7.9 mg/dl (8.6-10.3) L 07/26/24 06:32 Magnesium 1.7 mg/dl (1.7-2.4) 07/26/24 06:32 Total Bilirubin 1.8 mg/dl (0.2-1.0) H 07/26/24 06:32 Direct Bilirubin 0.6 mg/dl (0-0.2) H 07/25/24 16:00 Direct Bilirubin Cancelled 07/25/24 16:00 AST 84 U/L (13-39) H 07/26/24 06:32 ALT 71 U/L (7-52) H 07/26/24 06:32 Alkaline Phosphatase 437 U/L (34-104) H 07/26/24 06:32 Troponin I High Sens 61.2 pg/ml (0-20) H* 07/25/24 17:54 Total Protein 5.0 gm/dl (6.0-8.3) L 07/26/24 06:32 Albumin 2.9 gm/dl (3.4-5.0) L 07/26/24 06:32 Globulin 2.1 gm/dl (2.5-4.0) L 07/26/24 06:32 Albumin/Globulin Ratio 1.4 (0.9-2) 07/26/24 06:32 Procalcitonin 99.90 ng/ml (0-0.5) H 07/25/24 16:00 Urine Color Yellow 07/25/24 19:54 Urine Appearance Clear (Clear) 07/25/24 19:54 Urine pH 8.0 (4.5-7.5) H 07/25/24 19:54 Ur Specific [place] 1.011 (1.000-1.030) 07/25/24 19:54 Urine Protein 2+ (Negative) H 07/25/24 19:54 Urine Glucose (UA) Negative (Negative) 07/25/24 19:54 Urine Ketones Negative (Negative) 07/25/24 19:54 Urine Blood 1+ (Negative) H 07/25/24 19:54 Urine Nitrite Negative (Negative) 07/25/24 19:54 Urine Bilirubin Negative (Negative) 07/25/24 19:54 Urine Urobilinogen Negative (Negative) 07/25/24 19:54 Ur Leukocyte Esterase Negative (Negative) 07/25/24 19:54 Urine WBC (Auto) 0-5 /hpf (0-5) 07/25/24 19:54 Urine RBC (Auto) 3-5 /hpf (0-2) H 07/25/24 19:54 U Hyaline Cast (Auto) 0-2 /lpf (0-2) 07/25/24 19:54 U Epithel Cells (Auto) 0-2 /hpf (0-2) 07/25/24 19:54 Urine Bacteria (Auto) None Seen (None Seen) 07/25/24 19:54 Nasal Screen MRSA (PCR) Negative (Negative) 07/25/24 19:57 Stl C. diff Tox B Gene Negative Cdiff Gene (Neg) 07/25/24 21:06 Adenovirus (PCR) Not Detected (NotDetected) 07/25/24 23:15 B. pertussis DNA (PCR) Not Detected (NotDetected) 07/25/24 23:15 B.parapertussis DNA PCR Not Detected (NotDetected) 07/25/24 23:15 C. pneumoniae DNA (PCR) Not Detected (NotDetected) 07/25/24 23:15 Coronavirus OC43 (PCR) Not Detected (NotDetected) 07/25/24 23:15 Coronavirus HKU1 (PCR) Not Detected (NotDetected) 07/25/24 23:15 Coronavirus 229E (PCR) Not Detected (NotDetected) 07/25/24 23:15 SARS-CoV-2 (PCR) Not Detected (NotDetected) 07/25/24 23:15 Coronavirus NL63 (PCR) Not Detected (NotDetected) 07/25/24 23:15 Human Metapneumovir PCR Not Detected (NotDetected) 07/25/24 23:15 Influenza Type A (PCR) Not Detected (NotDetected) 07/25/24 23:15 Influenza Type B (PCR) Not Detected (NotDetected) 07/25/24 23:15 M. pneumoniae (PCR) Not Detected (NotDetected) 07/25/24 23:15 Parainfluenza 1 (PCR) Not Detected (NotDetected) 07/25/24 23:15 Parainfluenza 2 (PCR) Not Detected (NotDetected) 07/25/24 23:15 Parainfluenza 3 (PCR) Not Detected (NotDetected) 07/25/24 23:15 Parainfluenza 4 (PCR) Not Detected (NotDetected) 07/25/24 23:15 RSV (RT-PCR) Negative (Neg) 07/25/24 15:45 RSV (PCR) Not Detected (NotDetected) 07/25/24 23:15 Entero/Rhino (PCR) Not Detected (NotDetected) 07/25/24 23:15 P. aeruginosa (PCR) DETECTED (NotDetected) A 07/25/24 15:51 blaIMP Car res Gene PCR Not Detected (NotDetected) 07/25/24 15:51 KPC-Carbap Res Gene PCR Not Detected (NotDetected) 07/25/24 15:51 blaNDM Car Res Gene PCR Not Detected (NotDetected) 07/25/24 15:51 blaVIM Car Res Gene PCR Not Detected (NotDetected) 07/25/24 15:51 CTX-M Gene Resistance (PCR) Not Detected (NotDetected) 07/25/24 15:51 Bld Cult ID Panel PCR See PCR Comment (NotDetected) 07/25/24 15:51 Blood Parasites ID Cancelled 07/25/24 16:00 Impressions Chest X-Ray 07/25/24 15:45 EXAM: Radiograph of the Chest 1 View INDICATION: Chest pain. TECHNIQUE: Frontal view of the chest. COMPARISON: 07/14/2024 FINDINGS: Lungs and pleural spaces: No change left perihilar mass. Increased thickening of the bronchovascular and interstitial markings. There is new patchy airspace disease in the left lung base and new trace left pleural effusion. No pneumothorax. Heart: Stable prominent cardiac shadow. Mediastinum: Normal contour. Bones/joints: No fracture, erosion or dislocation. Soft tissues: No abnormality noted. No radiopaque foreign body noted. Tubes, lines and devices: Right internal jugular central venous catheter tip in the distal superior vena cava. Upper abdomen: No abnormality noted. IMPRESSION: 1. New left basilar atelectasis or pneumonia and trace left pleural effusion. 2. Stable left hilar mass. 3. Increased interstitial markings typical of pneumonitis or vascular congestion. Aspiration not excluded. ACT 112: Negative or not required by law. Electronically signed by Kristi Larson 07-25-2024 4:26 PM Abdomen/Pelvis CT 07/25/24 18:33 Exam(s): CT ABDOMEN + PELVIS Without Contrast EXAM: CT Abdomen and Pelvis Without Intravenous Contrast CLINICAL HISTORY: Reason for exam: neutropenic fever, abdominal pain. TECHNIQUE: Axial computed tomography images of the abdomen and pelvis without intravenous contrast. CTDI is 26.25 mGy and DLP is 1215.35 mGy-cm. Automated exposure control was utilized for the study. A dose lowering technique was utilized adhering to the principles of ALARA. COMPARISON: July 12, 2024 FINDINGS: Lung bases: Unremarkable. No mass. No consolidation. Pleural space: Trace right and small left pleural effusions layering posteriorly measuring up to 4 cm on the left. ABDOMEN: Liver: The liver is enlarged measuring 23 cm craniocaudad the multiple ill-defined low-density mass lesions throughout the entire liver. The largest discrete mass measures 5.3 cm. Gallbladder and bile ducts: Unremarkable. No calcified stones. No ductal dilation. Pancreas: Unremarkable. No ductal dilation. Spleen: Unremarkable. No splenomegaly. Adrenals: 2.5 cm left adrenal nodule is nonspecific. Kidneys and ureters: Smooth oval 8 cm simple cysts in the right kidney. No follow-up is required. Smooth oval 2.7 cm simple cyst in the right kidney. No follow-up is required. No obstructing stones. No hydronephrosis. Stomach and bowel: See below. PELVIS: Appendix: The appendix is normal. Bowel loops are nondilated. No acute inflammatory changes are seen involving the bowel. There is mild diverticulosis of the colon. There is a small amount of free fluid in the pelvis. No pneumoperitoneum or abscess. Bladder: Unremarkable. No stones. Reproductive: Unremarkable as visualized. ABDOMEN and PELVIS: Intraperitoneal space: See above. Bones/joints: Moderate degenerative changes in the spine. No acute fracture or subluxation is seen. 8 mm inferior endplate defect at L3 could represent Schmorl's node. Moderate multilevel degenerative changes throughout the spine. No acute fracture or subluxation is seen. Soft tissues: Unremarkable. Vasculature: The abdominal aorta is severely calcified but nondilated. This is a noncontrast study. Lymph nodes: Unremarkable. No enlarged lymph nodes. IMPRESSION: 1. The liver is enlarged measuring 23 cm craniocaudad the multiple ill- defined low-density mass lesions throughout the entire liver. The largest discrete mass measures 5.3 cm. Likely diffuse metastasis. 2. The appendix is normal. Bowel loops are nondilated. No acute inflammatory changes are seen involving the bowel. There is mild diverticulosis of the colon. There is a small amount of free fluid in the pelvis. No pneumoperitoneum or abscess. 3. Moderate degenerative changes in the spine. No acute fracture or subluxation is seen. 8 mm inferior endplate defect at L3 could represent Schmorl's node. Consider bone scan to rule out metastasis. 4. Trace right and small left pleural effusions layering posteriorly measuring up to 4 cm on the left. 5. 2.5 cm left adrenal nodule is nonspecific, unchanged. Electronically signed by: Mt Underwood MD 07/25/24 20:03 PM Microbiology 07/25/24 16:17 Blood Aerobic Blood Culture - Preliminary Gram negative bacilli 07/25/24 15:51 Blood Aerobic Blood Culture - Preliminary Gram negative bacilli PG Care Time/CCT Total # of Minutes Spent Total Time Spent with Patient: Total time spent is greater than 50% in coordination of care (as documented) at patient's floor/unit and/or counseling patient: Coding Level of Care Code 25149 IN/OBS CONSULT LVL 5,80M Diagnoses Acute renal failure N17.9 Chronic Kidney Disease N18.9 Neutropenic fever D70.9; R50.81 Sepsis A41.9 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
[2024-07-26 09:06] LABS: Basophils # (auto) 0.01 K/uL (0.00-0.20); Basophils % (auto) 1.6 %; Eosinophils # (auto) 0.01 K/uL (0.00-0.50); Eosinophils % (auto) 1.6 %; Immature Granulocytes # (auto) 0.02 K/uL (0.01-0.20); Immature Granulocytes % (auto) 3.2 %; Lymphocytes # (auto) 0.44 K/uL (1.20-3.40); Monocytes # (auto) 0.09 K/uL (0.11-0.59); Monocytes % (auto) 14.5 %; Neutrophils # (auto) 0.05 K/uL (1.40-6.50); Neutrophils % (auto) 8.1 %
--- NOTE | 2024-07-26 09:41 | Electrocardiogram Report ---
Test Reason : Blood Pressure : */* mmHG Vent. Rate : 77 BPM Atrial Rate : 77 BPM P-R Int : 126 ms QRS Dur : 148 ms QT Int : 424 ms P-R-T Axes : 49 78 19 degrees QTcB Int : 479 ms Normal sinus rhythm Right bundle branch block Abnormal ECG When compared with ECG of 13-Jul-2024 05:21, Premature ventricular complexes are no longer Present Premature atrial complexes are no longer Present Confirmed by Pipo Muniz ([id number]) on 07/26/2024 9:41:09 AM Referred By: Monique Werner Confirmed By: Pipo Muniz
[2024-07-26] MEDS: LOPERAMIDE HCL 2 MG CAP PO PRN (10:22)
[2024-07-26] MEDS: amLODIPine BESYLATE 5 MG TAB PO SCH (11:58)
[2024-07-26] MEDS: 4.5GM X1 IV ONE (11:58)
[2024-07-26] MEDS: MENTHOL-ZINC OXIDE 360 APPLN/120 GM TUBE EXT PRN (11:59)
[2024-07-26 12:24] LABS: Appearance Urine Clear (Clear); Bacteria Urine Automated None Seen (None Seen); Bilirubin Urine Negative (Negative); Blood Urine 2+ (Negative); Color Urine Yellow; Epithelial Cell Urine Auto 0-2 /hpf (0-2); Glucose Urine UA Negative (Negative); Ketones Urine Negative (Negative); Leukocyte Esterase Urine Negative (Negative); Nitrite Urine Negative (Negative); Protein Urine 2+ (Negative); RBC Urine Automated 0-2 /hpf (0-2); Specific Gravity Urine 1.012 (1.000-1.030); Urobilinogen Urine Negative (Negative); WBC Urine Automated 0-5 /hpf (0-5); pH Urine 7.5 (4.5-7.5)
--- NOTE | 2024-07-26 13:06 | Hospitalist Progress Note ---
Date of Service July 26, 2024 Assessment & Plan (1) Neutropenic fever: Plan: Emmett is a 69-year-old male with PMH of small cell lung cancer with mets, tumor lysis syndrome, lung mass, dialysis M/W/F, COPD with emphysema, diabetes, HLD, BPH, and HTN. He presented on 07/25 for acute onset of fever and cough. Patient's is at bedside and reports that his fever started last night just before bed. She took his temperature and it was up to 103 F. He took 2 T ylenol, and was okay until the morning. His fever then returned around 12:30 PM, he took 2 additional Tylenol and went to the hospital. Neutropenic fever Fever first developed the evening of 07/24 -Febrile at 37.8 C on arrival Leukopenic cell count 0.60 Oncology consulted Filgrastim daily for up to 3 days ordered. May hold if ANC greater than 1000 Neutropenic precautions Suspected due to pneumonia treated as below. CTA/P with liver enlarged 23 cm and multiple ill-defined low-density mass lesions largest of 5.3 likely representing diffuse metastasis. Mild diverticulosis without evidence of inflammatory change, small amount of likely reactive free fluid in the pelvis. No pneumoperitoneum or abscess. Trace right and small left layering pleural effusions are noted. Nonspecific stable 2.5 cm left adrenal nodule Right dialysis catheter does not appear overtly infected. Serial blood cultures have been ordered. If these are persistently positive may need to consider catheter holiday/exchange. ID consulted Bruising/Thrombocytopenia - R arm bruising with Plt <30k. Non-life threatening bleeding at time of assessment. Discussed w/family, reasonable to xfuse plt 1 unit, goal >30. Recommend irradiated product due to severe immune compromise. Consent for blood products signed/on file Pseudomonal bacteremia, suspect pneumonia as source Chest x-ray with left basilar pneumonia BioFire is negative MRSA nares negative Sputum culture pending Patient with fever, leukopenia and hypoxia although no tachycardia, tachypnea on admission. Lactate was normal. Procalcitonin markedly elevated suspicious for bacteremia subsequently confirmed Switch from cefepime to Zosyn due to underlying renal dysfunction/dialysis. Appreciate nephrology recommendations Diarrhea CTA/P without acute abdominal infectious/inflammatory pathology Sepsissuspect due to combination of chemotherapy and antibiotics C. difficile testing is confirmed is negative. May use Imodium symptomatically but must monitor carefully for C. difficile risk due to immune compromise and antibiotic treatment New skin breakdown zinc oxide barrier cream ordered If not successful with symptomatic treatment of diarrhea we will switch to [facility] Oncology following Recently completed inpatient chemo complicated by tumor lysis syndrome, treated with hemodialysis for urate nephropathy which she continues Saturday Receiving G-CSF as noted, no other acute change in management at this time Remains with pancytopenia. Transfusion threshold for hemoglobin 8.6. Platelet count 20, patient with easy bruising but no evidence of hemodynamically significant bleeding. Will continue to trend. If bleeding ARF Due to tumor lysis syndrome with urate nephropathy Nephrology consulted to continue routine dialysis Volume status, electrolytes acceptable. No indication for acute dialysis at this time Troponin elevation Minimally elevated troponin without exponential rise. Likely due to demand versus impaired clearance with renal disease EKG sinus without territorial ischemia Abdominal pain CTAP without acute infectious findings. Multiple liver mets are noted likely with some pain from capsular stretch. Some reactive free fluid is noted DM2 Glucose checks AC/at bedtime A1c well-controlled 6.3% Continue diet control. If outside of goal 180 then add SSI Chronic stable issues: Hypertension: Continue carvedilol Disposition: Admit to PCU telemetry Full code T2DM, dialysis renal, low K diet VTE PPx: Hold chemical DVT PPx in the setting of thrombocytopenia (platelet count 18 on arrival); SCDs Admission and Anticipated Discharge Date Admission Date: July 25, 2024 Subjective Seen at the bedside, also discussed with family via phone. Greatly improved energy today. No fever/chills overnight. Is concerned about plan of care moving forward and has been hypertensive. No nausea/vomiting/abdominal pain. No dysuria. +easy bruising on R arm with thrombocytopenia. Physical Exam Physical Exam: General: A&Ox3. NAD. Cooperative. HEENT: Atraumatic, normocephalic. Thorax: Right dialysis catheter is without tenderness, swelling, erythema, or discharge Pulm: CTAB A&P. -wheezes, -rales, -rhonchi. Symmetrical chest rise. No increased work of breathing. No respiratory distress. Cardiac: RRR, -mrg. Radial pulses intact and symmetrical. Abdominal: Nontender, nondistended, soft. BS present. Extremities: Moves all extremities equally Results & Data Results & Data Vital Signs (Past 12 Hours) Vital Signs Temp Pulse Resp BP BP Pulse Ox O2 Del Method 07/26/24 11:53 36.5 C 74 20 152/72 H 92 Nasal Cannula 07/26/24 08:17 36.3 C L 66 18 188/90 H 96 Nasal Cannula 07/26/24 04:59 36.4 C L 76 18 176/81 H 95 Nasal Cannula O2 Flow Rate 07/26/24 11:53 2 07/26/24 08:17 2 07/26/24 04:59 2 PG Care Time/CCT Total # of Minutes Spent Total Time Spent with Patient: Total time spent is greater than 50% in coordination of care (as documented) at patient's floor/unit and/or counseling patient: Coding Level of Care Code 06588 SUB INP/OBS CARE 3/50MIN Diagnoses Neutropenic fever D70.9; R50.81
[2024-07-26] MEDS ORDERED: SODIUM CHLORIDE 0.9% 50 ML IV PRN (13:47)
[2024-07-26] MEDS ORDERED: SODIUM CHLORIDE 0.9% 100 ML IV PRN (13:47)
--- NOTE | 2024-07-26 13:54 | Oncology Consultation ---
Date of Consultation July 26, 2024 Assessment & Plan (1) Pancytopenia: Transfuse to maintain hemoglobin close to 8 g/dL given the multiple comorbidities including cardiorenal disease, diabetes. Currently the hemoglobin is where it should be. Pancytopenia is most likely secondary to recent chemotherapy induced myelosuppression. transfuse platelets in case of bleeding or if platelet count falls less than 30,000/mcL. Severe thrombocytopenia secondary to chemotherapy induced myelosuppression. Since the patient was having bruising platelet goal should be close to 30,000/mcL. (2) Neutropenic fever: Agree with Neupogen. Neupogen should be dosed per weight at 480 micro grams daily for 3 days. Hold Neupogen once ANC is consistently above 1000/mcL for 2 days or greater than 1500 mcL. Continue broad-spectrum antibiotics. Currently on Zosyn, agree with choice of antibiotics With my hospital internal medicine colleagues (3) Small cell lung cancer: Once the patient recovers from current event, we will resume oncology care on an outpatient basis. Reviewed the plan for carboplatin, etoposide, Tecentriq. Management per my colleague Dr. Werner Plan thank you for this interesting oncological plan.. A total of 60 minutes were spent in counseling, coordination of care, review of prior records. Medical oncology will continue to follow the patient make appropriate recommendations. History of Present Illness Reason for Consultation: Neutropenic fever small cell lung cancer status postchemotherapy Attending Physician: Jeyson Garcia MD History of Present Illness 69-year-old gentleman, being followed by my colleague Dr. Werner, Was recently diagnosed with extensive stage small cell lung cancer and received first cycle of carboplatin/etoposide, cycle 1 day 1 on 07/16/2024, cycle 1 day 2 on 07/17/2024. He is also on hemodialysis. He presented back to [facility] on for lightheadedness, fever, productive cough. He was noted to be severely neutropenic with an absolute neutrophil count of 50, he is also severely anemic and thrombocytopenic most likely secondary to chemotherapy- induced myelosuppression. LFTs continue to be elevated which are noted on previous admission as well. Medical oncology has been consulted to assist in management of this patient with recently diagnosed extensive stage small cell lung cancer, s/p cycle 1 of chemotherapy currently dealing with significant pancytopenia Allergies Allergy/AdvReac Type Severity Reaction Status Date / Time No Known Allergies Allergy Verified 05/14/24 10:40 Home Medications Medication Instructions Recorded Confirmed Type betamethasone dipropionate 0.05 % 1 applic topical BID PRN skin 08/03/21 07/25/24 Rx topical cream irritation #45 grams carvedilol 25 mg tablet 25 mg PO BID #60 tabs 08/03/21 07/25/24 Rx triamcinolone acetonide 0.1 % 1 applic topical BID PRN Dry 08/03/21 07/25/24 Rx topical cream scaling areas #15 grams finasteride 5 mg tablet 5 mg PO DAILY #90 tabs 08/13/23 07/25/24 Rx sildenafil (pulm.hypertension) 20 40 mg (2 x 20 mg) PO 3XWK #90 tabs 04/01/24 07/25/24 Rx mg tablet (Revatio) lansoprazole 30 mg capsule,delayed 30 mg PO DAILY PRN heart burn 07/12/24 07/25/24 History release allopurinol 300 mg tablet 300 mg PO DAILY #14 tabs 07/21/24 07/25/24 Rx benzonatate 100 mg capsule 100 mg PO BID PRN cough #20 caps 07/21/24 07/25/24 Rx blood-glucose meter (OneTouch #1 ea 07/21/24 07/23/24 Rx Verio Flex Start kit) guaifenesin 600 mg tablet, 600 mg PO BID #10 tabs 07/21/24 07/25/24 Rx extended release 12 hr (Mucinex) melatonin 3 mg capsule 3 mg PO HS #20 caps 07/21/24 07/25/24 Rx ondansetron 4 mg disintegrating 4 mg PO BID PRN nausea and 07/21/24 07/25/24 Rx tablet vomiting #14 tabs umeclidinium 62.5 mcg/actuation 1 inh inhalation DAILY #7 ea 07/21/24 07/25/24 Rx blister powder for inhalation (Incruse Ellipta) blood-glucose meter (OneTouch #1 ea 07/22/24 07/23/24 Rx Verio Flex Start kit) rosuvastatin 10 mg tablet 10 mg PO QPM #90 tabs 07/22/24 07/25/24 Rx trazodone 50 mg tablet 50 mg PO .qhs #30 tabs 07/22/24 07/25/24 Rx calcium acetate 667 mg tablet 1,334 mg PO .with meals 07/23/24 07/25/24 History olanzapine 2.5 mg tablet 2.5 mg PO DIRECTED 07/25/24 07/25/24 History ondansetron 8 mg disintegrating 8 mg PO DIRECTED PRN n/v 07/25/24 07/25/24 History tablet prochlorperazine maleate 10 mg 10 mg PO DIRECTED PRN n/v 07/25/24 07/25/24 History tablet Patient History Medical History Full thickness rotator cuff tear History of COVID-2019, mild symptoms Surgical History History of arthroscopy of right shoulder 18 years ago History of colonoscopy Hx of LASIK bilateral Family History Son Kidney disease Social History Smoking Status: Former smoker Tobacco Type: Cigarettes Age Started Using Tobacco: 19; packs per day: 1.5; Cigarettes Per Day: 30; Smoking End Date: 07/12/2024; Second Hand Exposure: Yes (childhood); Do You Dip or Chew Tobacco: No; Hx Alcohol Use: No Hx Substance Use: No Preferred Language: Armenian Communication Ability: Effective 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 And 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 Required: No Beliefs That Will Affect Care: None marital status: marital status details: but still living together Current Living Situation: Spouse current occupational status: retired How many Children do You have: 2 Other Information That Helps Us Care for You: No Feels Safe at Home: Yes Safety Concerns: Feels Safe At This Time Childhood Exposure to Second-Hand Smoke: Yes Diet: regular caffeine: Yes Dental Care, Regularly: Yes Physical Activity Frequency: Other Physical Activity Frequency Comment: Outside work Seatbelt Use: sometimes Sunscreen Use: Yes Assistive Devices: Cane Assistive Devices Comment: cane Review of Systems Review of Systems: All systems reviewed & are unremarkable except as noted in HPI & below Constitutional: as per Subjective / HPI Eyes: as per Subjective / HPI Ear, Nose, Mouth, Throat: as per Subjective / HPI Respiratory: as per Subjective / HPI Cardiovascular: as per Subjective / HPI Gastrointestinal: as per Subjective / HPI Genitourinary: + as per Subjective / HPI Musculoskeletal: as per Subjective / HPI Integumentary: as per Subjective / HPI Neurologic: as per Subjective / HPI Psychiatric: as per Subjective / HPI Physical Exam Constitutional: WD/WN, vitals as above Eyes: PERRL, conjunctivae normal, anicteric sclerae ENMT: external ear and nose normal, oropharynx normal Neck: trachea midline, no thyromegaly Respiratory: normal respiratory effort, lungs clear to auscultation Cardiovascular: RRR, no murmur, no edema Gastrointestinal (Abdomen): normal bowel sounds, soft, nontender, no h epatosplenomegaly Musculoskeletal: no cyanosis or clubbing, extremities motor strength 5/5 Skin: no rashes, warm and dry Neurologic: patellar DTR's 2+ bilat, sensation intact Psychiatric: A+Ox3, euthymic affect Results & Data Vital Signs (Past 12 Hours) Vital Signs Temp Pulse Pulse Resp BP BP Pulse Ox 07/26/24 11:53 36.5 C 74 20 152/72 H 92 07/26/24 08:20 07/26/24 08:17 36.3 C L 66 18 188/90 H 96 07/26/24 05:46 68 07/26/24 04:59 36.4 C L 76 18 176/81 H 95 O2 Del Method O2 Flow Rate 07/26/24 11:53 Nasal Cannula 2 07/26/24 08:20 Nasal Cannula 2 07/26/24 08:17 Nasal Cannula 2 07/26/24 05:46 07/26/24 04:59 Nasal Cannula 2
[2024-07-26] MEDS: PIPERACILLIN/TAZOBACTAM 4.5 GM/100 ML BAG IV SCH (20:27)
[2024-07-27 07:57] LABS: Albumin Globulin Ratio 1.4 (0.9-2); Albumin Level 2.8 gm/dl (3.4-5.0); BUN Creatinine Ratio 14.5 (10-20); Bilirubin,Total 1.2 mg/dl (0.2-1.0); Calcium 8.1 mg/dl (8.6-10.3); Creatinine Clr Calc Pharmacy 11.1 ml/min; Potassium 4.2 mmol/L (3.5-5.1); Total Protein 4.8 gm/dl (6.0-8.3)
[2024-07-27 08:06] LABS: Hematocrit (blood only) 25.7 % (42.0-52.0); Hemoglobin 8.4 g/dl (14.0-18.0); Mean Corpuscular Hemoglobin 29.4 pg (25.0-34.0); Mean Corpuscular Hgb Conc 32.7 g/dL (32.0-36.0); Mean Corpuscular Volume 89.9 fL (80.0-100.0); Mean Platelet Volume 12.8 fL (9.4-12.4); Nucleated RBC # (auto) 0.03 K/uL (0.00-0.12); Nucleated RBC % (auto) 2.2 %; Platelet Count 32 K/uL (130-400); RDW Coefficient of Variation 14.6 % (11.5-14.5); RDW Standard Deviation 47.8 fL (36.4-46.3); Red Blood Count 2.86 M/uL (4.70-6.10); White Blood Count 1.35 K/ul (4.8-10.8)
[2024-07-27 08:25] LABS: Dohle Bodies 2+; Eosinophils # (auto) 0.03 K/uL (0.00-0.50); Eosinophils % (auto) 2.2 %; Lymphocytes # (auto) 0.68 K/uL (1.20-3.40); Lymphocytes % (auto) 50.4 %; Monocytes # (auto) 0.32 K/uL (0.11-0.59); Monocytes % (auto) 23.7 %; Neutrophils # (auto) 0.32 K/uL (1.40-6.50); Neutrophils % (auto) 23.7 %; Toxic Granulation 2+
--- NOTE | 2024-07-27 08:39 | Hospitalist Progress Note ---
Date of Service July 27, 2024 Assessment & Plan (1) Neutropenic fever: Plan: Emmett is a 69-year-old male with PMH of small cell lung cancer with mets, tumor lysis syndrome, lung mass, dialysis M/W/F, COPD with emphysema, diabetes, HLD, BPH, and HTN. He presented on 07/25 for acute onset of fever and cough. Patient's is at bedside and reports that his fever started last night just before bed. She took his temperature and it was up to 103 F. He took 2 T ylenol, and was okay until the morning. His fever then returned around 12:30 PM, he took 2 additional Tylenol and went to the hospital. Neutropenic fever Fever first developed the evening of 07/24 -Febrile at 37.8 C on arrival, leukopenic at 0.6 Oncology consulted Neutropenic precautions Suspected due to pneumonia treated as below. CTA/P with liver enlarged 23 cm and multiple ill-defined low-density mass lesions largest of 5.3 likely representing diffuse metastasis. Mild diverticulosis without evidence of inflammatory change, small amount of likely reactive free fluid in the pelvis. No pneumoperitoneum or abscess. Trace right and small left layering pleural effusions are noted. Nonspecific stable 2.5 cm left adrenal nodule - Received 3 doses of G-CSF (07/25-07/27). ANC Count 07/27 320 Pseudomonal bacteremia, suspected pneumonia Chest x-ray with left basilar pneumonia, or social markings suspicious for pneumonitis BioFire is negative Continue Zosyn MRSA nares negative Sputum culture with moderate normal renny HD cath does not appear overtly infected however line infection is a concern. Surveillance cultures are pending, additional blood culture drawn from cath site is pending. Anticipate at least a 14-day course of antipseudomonal treatment given pseudomonal bacteremia and neutropenic patient, and counts are not yet recovered with ANC greater than 1000. ID is consulted, pending evaluation. Sensitivities are pending Diarrhea CTA/P without acute abdominal infectious/inflammatory pathology Sepsissuspect due to combination of chemotherapy and antibiotics C. difficile testing is confirmed is negative. May use Imodium symptomatically but must monitor carefully for C. difficile risk due to immune compromise and antibiotic treatment zinc oxide barrier cream ordered Primary SCLC Oncology following Recently completed inpatient chemo complicated by tumor lysis syndrome, treated with hemodialysis for urate nephropathy which she continues Saturday Hematology oncology following. Transfusion threshold 8 given multiple comorbidities, platelet threshold with minor bleeding 30,000. On 07/27 platelet count is 32K, hemoglobin 8.4 transfusion not currently indicated. Appreciate recommendation Will resume oncologic management on outpatient once recovered ARF Due to tumor lysis syndrome with urate nephropathy Nephrology consulted to continue routine dialysis Volume status, electrolytes acceptable. Troponin elevation Minimally elevated troponin without exponential rise. Likely due to demand versus impaired clearance with renal disease EKG sinus without territorial ischemia Abdominal pain CTAP without acute infectious findings. Multiple liver mets are noted likely with some pain from capsular stretch. Some reactive free fluid is noted DM2 Glucose checks AC/at bedtime A1c well-controlled 6.3% Continue diet control. Chronic stable issues: Hypertension: Continue carvedilol Disposition: Admit to PCU telemetry Full code T2DM, dialysis renal, low K diet VTE PPx: Hold chemical DVT PPx in the setting of thrombocytopenia (platelet count 18 on arrival); SCDs (2) Pneumonia: (3) Sepsis: (4) Metastatic primary lung cancer: (5) Acute renal failure: (6) Pulmonary hypertension: (7) Abdominal pain: (8) Diarrhea: (9) Hypertension: (10) Diabetes: (11) Pancytopenia: (12) Transaminitis: (13) Tobacco dependence due to cigarettes: Admission and Anticipated Discharge Date Admission Date: July 25, 2024 Subjective Seen the bedside. No fever chills or sweats. No pain overlying his port. Energy improved today. Reports he would like to get out of the hospital and near future, but also wants to make sure that he is well and has a safe plan p rior to doing so. No new bleeding. No additional concerns at time bedside assessment family. Physical Exam Physical Exam: General: A&Ox3. NAD. Cooperative. HEENT: Atraumatic, normocephalic. Thorax: Right dialysis catheter is without tenderness, swelling, erythema, or discharge Pulm: Symmetrical chest rise. No increased work of breathing. No respiratory distress. Cardiac: RRR, -mrg. Radial pulses intact and symmetrical. Abdominal: Nontender, nondistended, soft. BS present. Extremities: Moves all extremities equally Results & Data Results & Data Vital Signs (Past 12 Hours) Vital Signs Temp Pulse Pulse Resp BP Pulse Ox O2 Del Method 07/27/24 04:08 36.5 C 76 18 166/83 H 96 Oxymask 07/26/24 23:21 73 18 152/72 H 90 Oxymask 07/26/24 21:44 74 07/26/24 21:29 Oxymask O2 Flow Rate 07/27/24 04:08 2 07/26/24 23:21 2 07/26/24 21:44 07/26/24 21:29 2 PG Care Time/CCT Total # of Minutes Spent Total Time Spent with Patient: Total time spent is greater than 50% in coordination of care (as documented) at patient's floor/unit and/or counseling patient: Coding Level of Care Code 95469 SUB INP/OBS CARE 3/50MIN Diagnoses Neutropenic fever D70.9; R50.81 Pneumonia J18.9 Sepsis A41.9 Metastatic primary lung cancer C34.90 Acute renal failure N17.9 Pulmonary hypertension I27.20 Abdominal pain R10.9 Diarrhea R19.7 Hypertension I10 Diabetes E11.9 Pancytopenia D61.818 Transaminitis R74.01 Tobacco dependence due to cigarettes F17.210
--- NOTE | 2024-07-27 08:40 | Nephrology Progress Note ---
Date of Service July 27, 2024 Assessment & Plan (1) Acute renal failure: Plan: * AVE due to TLS * No evidence of recovery at this time. Creatinine remains elevated in between dialysis treatments * Will provide HD today for urea clearance and attempt 1 L UF. Orders have been placed in EMR and HD RN notified (2) Chronic Kidney Disease: Plan: * CKD stage G3a/A3 (moderate impairment). Baseline Cr 1.5 w/ EGFR 48 cc/minute. Renal impairment has been attributed to DKD, hypertensive nephrosclerosis (3) Neutropenic fever: Plan: * G-CSF as per oncology (4) Sepsis: Plan: * Pseudomonas sepsis. Possible pulmonary, urinary or catheter related source * On piperacillin/tazobactam therapy * Afebrile x24 hours, BP remains acceptable (5) Tumor lysis syndrome: Plan: * Has received rasburicase * 07/20/2024 uric acid 3.0. Dialysis is also helping to keep this within acceptable limits (6) Small cell lung cancer: Plan: * Chemotherapy as per oncology * Poor prognosis. Consider consultation w/ palliative care to discuss GOC/expectations (7) Pneumonia: Admission and Anticipated Discharge Date Admission Date: July 25, 2024 Subjective Mr. Arcos was evaluated in his hospital room this morning. He denied fever, dyspnea, productive cough, N/V/D. Review of Systems Constitutional: no fever Eyes: no problem reported Ear, Nose, Mouth, Throat: no problem reported Respiratory: no cough and no dyspnea Cardiovascular: no chest pain Gastrointestinal: no nausea, no vomiting and no diarrhea/loose stools Genitourinary: no dysuria Integumentary: no rash Physical Exam Constitutional: + ill appearing Eyes: PERRL, conjunctivae normal, anicteric sclerae ENMT: external ear and nose normal, oropharynx normal Neck: trachea midline, no thyromegaly Respiratory: normal respiratory effort, lungs clear to auscultation Cardiovascular: RRR, no murmur, no edema Gastrointestinal (Abdomen): normal bowel sounds, soft, nontender, no hepatosplenomegaly Skin: no rashes, warm and dry Neurologic: Speech / Cognition: normal speech and normal cognition Results & Data Vital Signs (Past 12 Hours) Vital Signs Temp Pulse Pulse Resp BP Pulse Ox O2 Del Method 07/27/24 04:08 36.5 C 76 18 166/83 H 96 Oxymask 07/26/24 23:21 73 18 152/72 H 90 Oxymask 07/26/24 21:44 74 07/26/24 21:29 Oxymask O2 Flow Rate 07/27/24 04:08 2 07/26/24 23:21 2 07/26/24 21:44 07/26/24 21:29 2 Laboratory Results Laboratory Results - last 24 hr 07/25/24 07/25/24 07/26/24 15:51 17:06 06:32 WBC RBC Hgb Hct MCV MCH MCHC RDW Std Deviation RDW Coeff of Iraida Plt Count MPV Immature Gran % (Auto) 3.2 Neut % (Auto) 8.1 Lymph % (Auto) 71.0 Quay % (Auto) 14.5 Eos % (Auto) 1.6 Baso % (Auto) 1.6 Neut # (Auto) 0.05 L* Lymph # (Auto) 0.44 L Quay # (Auto) 0.09 L Eos # (Auto) 0.01 Baso # (Auto) 0.01 Immature Gran # (Auto) 0.02 Absolute Nucleated RBC Nucleated RBC % (auto) Toxic Granulation Dohle Bodies Sodium Potassium Chloride Carbon Dioxide Anion Gap BUN Creatinine Est Cr Clr Drug Dosing eGFR BUN/Creatinine Ratio Glucose POC Glucose Calcium Total Bilirubin AST ALT Alkaline Phosphatase Total Protein Albumin Globulin Albumin/Globulin Ratio Urine Color Urine Appearance Urine pH Ur Specific [place] Urine Protein Urine Glucose (UA) Urine Ketones Urine Blood Urine Nitrite Urine Bilirubin Urine Urobilinogen Ur Leukocyte Esterase Urine WBC (Auto) Urine RBC (Auto) U Hyaline Cast (Auto) U Epithel Cells (Auto) Urine Bacteria (Auto) P. aeruginosa (PCR) DETECTED A blaIMP Car res Gene PCR Not Detected KPC-Carbap Res Gene PCR Not Detected blaNDM Car Res Gene PCR Not Detected blaVIM Car Res Gene PCR Not Detected CTX-M Gene Resistance (PCR) Not Detected Bld Cult ID Panel PCR See PCR Comment Blood Type O Positive Antibody Screen NEGATIVE 07/26/24 07/26/24 07/26/24 11:25 16:29 20:25 WBC RBC Hgb Hct MCV MCH MCHC RDW Std Deviation RDW Coeff of Iraida Plt Count MPV Immature Gran % (Auto) Neut % (Auto) Lymph % (Auto) Quay % (Auto) Eos % (Auto) Baso % (Auto) Neut # (Auto) Lymph # (Auto) Quay # (Auto) Eos # (Auto) Baso # (Auto) Immature Gran # (Auto) Absolute Nucleated RBC Nucleated RBC % (auto) Toxic Granulation Dohle Bodies Sodium Potassium Chloride Carbon Dioxide Anion Gap BUN Creatinine Est Cr Clr Drug Dosing eGFR BUN/Creatinine Ratio Glucose POC Glucose 143 H 170 H 119 H Calcium Total Bilirubin AST ALT Alkaline Phosphatase Total Protein Albumin Globulin Albumin/Globulin Ratio Urine Color Urine Appearance Urine pH Ur Specific [place] Urine Protein Urine Glucose (UA) Urine Ketones Urine Blood Urine Nitrite Urine Bilirubin Urine Urobilinogen Ur Leukocyte Esterase Urine WBC (Auto) Urine RBC (Auto) U Hyaline Cast (Auto) U Epithel Cells (Auto) Urine Bacteria (Auto) P. aeruginosa (PCR) blaIMP Car res Gene PCR KPC-Carbap Res Gene PCR blaNDM Car Res Gene PCR blaVIM Car Res Gene PCR CTX-M Gene Resistance (PCR) Bld Cult ID Panel PCR Blood Type Antibody Screen 07/26/24 07/27/24 07/27/24 Unknown 06:36 07:47 WBC 1.35 L RBC 2.86 L Hgb 8.4 L Hct 25.7 L MCV 89.9 MCH 29.4 MCHC 32.7 RDW Std Deviation 47.8 H RDW Coeff of Iraida 14.6 H Plt Count 32 L D MPV 12.8 H Immature Gran % (Auto) 0.0 Neut % (Auto) 23.7 Lymph % (Auto) 50.4 Quay % (Auto) 23.7 Eos % (Auto) 2.2 Baso % (Auto) 0.0 Neut # (Auto) 0.32 L* Lymph # (Auto) 0.68 L Quay # (Auto) 0.32 Eos # (Auto) 0.03 Baso # (Auto) 0.00 Immature Gran # (Auto) 0.00 L Absolute Nucleated RBC 0.03 Nucleated RBC % (auto) 2.2 Toxic Granulation 2+ Dohle Bodies 2+ Sodium 140 Potassium 4.2 Chloride 102 Carbon Dioxide 27 Anion Gap 11 BUN 87 H Creatinine 6.00 H* D Est Cr Clr Drug Dosing 11.1 eGFR 9.43 BUN/Creatinine Ratio 14.5 Glucose 98 POC Glucose 116 H Calcium 8.1 L Total Bilirubin 1.2 H AST 56 H ALT 61 H Alkaline Phosphatase 383 H Total Protein 4.8 L Albumin 2.8 L Globulin 2.0 L Albumin/Globulin Ratio 1.4 Urine Color Yellow Urine Appearance Clear Urine pH 7.5 Ur Specific [place] 1.012 Urine Protein 2+ H Urine Glucose (UA) Negative Urine Ketones Negative Urine Blood 2+ H Urine Nitrite Negative Urine Bilirubin Negative Urine Urobilinogen Negative Ur Leukocyte Esterase Negative Urine WBC (Auto) 0-5 Urine RBC (Auto) 0-2 U Hyaline Cast (Auto) 3-5 H U Epithel Cells (Auto) 0-2 Urine Bacteria (Auto) None Seen P. aeruginosa (PCR) blaIMP Car res Gene PCR KPC-Carbap Res Gene PCR blaNDM Car Res Gene PCR blaVIM Car Res Gene PCR CTX-M Gene Resistance (PCR) Bld Cult ID Panel PCR Blood Type Antibody Screen PG Care Time/CCT Total # of Minutes Spent Total Time Spent with Patient: Total time spent is greater than 50% in coordination of care (as documented) at patient's floor/unit and/or counseling patient: Coding Level of Care Code 30847 SUB INP/OBS CARE 3/50MIN Diagnoses Acute renal failure N17.9 Chronic Kidney Disease N18.9 Neutropenic fever D70.9; R50.81 Sepsis A41.9 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
[2024-07-27] MEDS: oxyCODONE HCL IR 5 MG TAB (IMMEDIATE RELEASE) PO PRN (08:50)
[2024-07-27] MEDS: SILDENAFIL CITRATE 20 MG TABLET PO SCH (08:51)
[2024-07-28] MEDS: ACETAMINOPHEN 325 MG TAB PO PRN (00:54)
[2024-07-28] MEDS: MELATONIN 3 MG TAB PO ONE (01:17)
[2024-07-28 07:17] LABS: Hematocrit (blood only) 26.4 % (42.0-52.0); Hemoglobin 8.5 g/dl (14.0-18.0); Mean Corpuscular Hemoglobin 29.3 pg (25.0-34.0); Mean Corpuscular Hgb Conc 32.2 g/dL (32.0-36.0); Mean Platelet Volume 12.7 fL (9.4-12.4); Nucleated RBC # (auto) 0.03 K/uL (0.00-0.12); Nucleated RBC % (auto) 0.5 %; Platelet Count 47 K/uL (130-400); RDW Coefficient of Variation 14.9 % (11.5-14.5); RDW Standard Deviation 49.6 fL (36.4-46.3); White Blood Count 6.07 K/ul (4.8-10.8)
--- NOTE | 2024-07-28 07:45 | Hospitalist Progress Note ---
Date of Service July 28, 2024 Assessment & Plan (1) Neutropenic fever: Plan: Emmett is a 69-year-old male with PMH of small cell lung cancer with mets, tumor lysis syndrome, lung mass, dialysis M/W/F, COPD with emphysema, diabetes, HLD, BPH, and HTN. He presented on 07/25 for acute onset of fever and cough. Patient's is at bedside and reports that his fever started last night just before bed. She took his temperature and it was up to 103 F. He took 2 T ylenol, and was okay until the morning. His fever then returned around 12:30 PM, he took 2 additional Tylenol and went to the hospital. Neutropenic fever Fever first developed the evening of 07/24 -Febrile at 37.8 C on arrival, leukopenic at 0.6 Oncology consulted Neutropenic precautions Suspected due to pneumonia treated as below. CLABSI is not excluded. CTA/P with liver enlarged 23 cm and multiple ill-defined low-density mass lesions largest of 5.3 likely representing diffuse metastasis. Mild diverticulosis without evidence of inflammatory change, small amount of likely reactive free fluid in the pelvis. No pneumoperitoneum or abscess. Trace right and small left layering pleural effusions are noted. Nonspecific stable 2.5 cm left adrenal nodule - Received 3 doses of G-CSF (07/25-07/27). 07/28 ANC had risen to 2910. Pseudomonal bacteremia, suspected pneumonia, ddx includes CLABSI Chest x-ray with left basilar pneumonia, or social markings suspicious for pneumonitis BioFire is negative Zosyn converted to Meropenem. BC+ for P. aeruginosa resistant to both cefepime and zosyn. Fluoroquinolone sensitive, however QTp is borderline prolonged. Switched to meropenem 500mg q24h HD dosing MRSA nares negative Sputum culture with moderate normal renny HD cath does not appear overtly infected however line infection remains concern. Reviewed with ID. Although surveillance cultures remain negative given unclear source of infection recommend removing line. Vascular surgery consulted and will see in the morning. Nephrology following. Anticipate dialysis in the morning and then hopefully can go without dialysis for a few days until a replacement permcath can be placed. If dialysis is needed sooner than temporary CVC will need to be placed at that time. Diarrhea CTA/P without acute abdominal infectious/inflammatory pathology Sepsissuspect due to combination of chemotherapy and antibiotics - Significant ongoing diarrhea with skin breakdown.Completely liquid. Likely 2/2 chemo + abx, will recheck C diff x1 and trial Questran Primary SCLC Oncology following Recently completed inpatient chemo complicated by tumor lysis syndrome, treated with hemodialysis for urate nephropathy which continues Saturday Hematology oncology following. - Hgb Transfusion threshold 8.0 given multiple comorbidities, platelet threshold with minor bleeding 30,000. Will resume oncologic management on outpatient once recovered. ARF Due to tumor lysis syndrome with urate nephropathy Nephrology consulted to continue routine dialysis. Anticipate HD 07/29 then holding between permcath removal and eventual replacement Volume status, electrolytes acceptable. Troponin elevation Minimally elevated troponin without exponential rise. Likely due to demand versus impaired clearance with renal disease EKG sinus without territorial ischemia Abdominal pain CTAP without acute infectious findings. Multiple liver mets are noted likely with some pain. Some reactive free fluid was noted DM2 Glucose checks AC/at bedtime A1c well-controlled 6.3% Continue diet control. Chronic stable issues: Hypertension: Continue carvedilol Disposition: Admit to PCU telemetry Full code T2DM, dialysis renal, low K diet VTE PPx: Hold chemical DVT PPx in the setting of thrombocytopenia; SCDs (2) Pneumonia: (3) Sepsis: (4) Metastatic primary lung cancer: (5) Acute renal failure: (6) Pulmonary hypertension: (7) Abdominal pain: (8) Diarrhea: (9) Hypertension: (10) Diabetes: (11) Pancytopenia: (12) Transaminitis: (13) Tobacco dependence due to cigarettes: Admission and Anticipated Discharge Date Admission Date: July 25, 2024 Subjective Seen at the bedside. Continues to have diarrhea, liquid, without blood/melena. biggest concern is diarrhea. Has been on No fevers or chills. Fatigued. Reviewed with ID and subsequent with family. Given unclear source of infection do recommend removing HD cath. Vascular surgery has been consulted for the morning, n.p.o. at midnight.. Cath site remains unchanged nontender and without warmth. Physical Exam Physical Exam: General: A&Ox3. NAD. Cooperative. HEENT: Atraumatic, normocephalic. Thorax: Right dialysis catheter is without tenderness, swelling, erythema, or discharge Pulm: Symmetrical chest rise. No increased work of breathing. No respiratory distress. Cardiac: RRR, -mrg. Radial pulses intact and symmetrical. Abdominal: Nontender, nondistended, soft. BS present. Extremities: Moves all extremities equally Results & Data Results & Data Vital Signs (Past 12 Hours) Vital Signs Temp Pulse Pulse Pulse Pulse Resp BP 07/28/24 07:10 36.8 C 70 18 07/28/24 04:26 36.9 C 80 18 07/27/24 23:00 37.1 C 81 16 133/65 07/27/24 21:46 80 07/27/24 21:30 07/27/24 20:17 36.7 C 77 18 126/63 BP Pulse Ox O2 Del Method O2 Flow Rate 07/28/24 07:10 155/67 H 90 Room Air 07/28/24 04:26 148/68 H 95 Room Air 07/27/24 23:00 90 Nasal Cannula 3 07/27/24 21:46 07/27/24 21:30 Oxymask 3 07/27/24 20:17 91 Room Air PG Care Time/CCT Total # of Minutes Spent Total Time Spent with Patient: Total time spent is greater than 50% in coordination of care (as documented) at patient's floor/unit and/or counseling patient: Coding Level of Care Code 63201 SUB INP/OBS CARE 3/50MIN Diagnoses Neutropenic fever D70.9; R50.81 Pneumonia J18.9 Sepsis A41.9 Metastatic primary lung cancer C34.90 Acute renal failure N17.9 Pulmonary hypertension I27.20 Abdominal pain R10.9 Diarrhea R19.7 Hypertension I10 Diabetes E11.9 Pancytopenia D61.818 Transaminitis R74.01 Tobacco dependence due to cigarettes F17.210
[2024-07-28 07:51] LABS: Albumin Globulin Ratio 1.3 (0.9-2); Albumin Level 2.8 gm/dl (3.4-5.0); BUN Creatinine Ratio 10.7 (10-20); Bilirubin,Total 1.1 mg/dl (0.2-1.0); Calcium 8.2 mg/dl (8.6-10.3); Creatinine Clr Calc Pharmacy 16.5 ml/min; Globulin 2.1 gm/dl (2.5-4.0); Phosphorus 2.6 mg/dl (2.5-4.9); Potassium 3.9 mmol/L (3.5-5.1); Total Protein 4.9 gm/dl (6.0-8.3)
[2024-07-28] MEDS: MEROPENEM 500 MG in SYRINGE 0 ML IV SCH (08:35)
--- NOTE | 2024-07-28 08:35 | Nephrology Progress Note ---
Date of Service July 28, 2024 Assessment & Plan (1) Acute renal failure: Plan: * AVE due to TLS * No evidence of recovery at this time. Creatinine remains elevated in between dialysis treatments * Will plan next HD for am (2) Chronic Kidney Disease: Plan: * CKD stage G3a/A3 (moderate impairment). Baseline Cr 1.5 w/ EGFR 48 cc/minute. Renal impairment has been attributed to DKD, hypertensive nephrosclerosis (3) Neutropenic fever: Plan: * G-CSF as per oncology (4) Sepsis: Plan: * Pseudomonas sepsis. Possible pulmonary, urinary or catheter related source * On piperacillin/tazobactam therapy * Afebrile x48 hours, BP remains acceptable * Blood cx from catheter 07/27/24 is pending (5) Tumor lysis syndrome: Plan: * Has received rasburicase * 07/20/2024 uric acid 3.0. Dialysis is also helping to keep this within acceptable limits (6) Small cell lung cancer: Plan: * Chemotherapy as per oncology * Poor prognosis. Consider consultation w/ palliative care to discuss GOC/expectations (7) Pneumonia: Admission and Anticipated Discharge Date Admission Date: July 25, 2024 Subjective Mr. Arcos was evaluated in his hospital room this morning. He denied fever, dyspnea, productive cough, N/V/D. He was dialyzed 07/27/23 for 3 L UF without complication Review of Systems Constitutional: no fever Eyes: no problem reported Ear, Nose, Mouth, Throat: no problem reported Respiratory: no cough and no dyspnea Cardiovascular: no chest pain Gastrointestinal: no nausea, no vomiting and no diarrhea/loose stools Genitourinary: no dysuria Integumentary: no rash Physical Exam Constitutional: + ill appearing Eyes: PERRL, conjunctivae normal, anicteric sclerae ENMT: external ear and nose normal, oropharynx normal Neck: trachea midline, no thyromegaly Respiratory: normal respiratory effort, lungs clear to auscultation Cardiovascular: RRR, no murmur, no edema Gastrointestinal (Abdomen): normal bowel sounds, soft, nontender, no hepatosplenomegaly Skin: no rashes, warm and dry Neurologic: Speech / Cognition: normal speech and normal cognition Results & Data Vital Signs (Past 12 Hours) Vital Signs Temp Pulse Pulse Pulse Pulse Resp BP 07/28/24 07:10 36.8 C 70 18 07/28/24 04:26 36.9 C 80 18 07/27/24 23:00 37.1 C 81 16 133/65 07/27/24 21:46 80 07/27/24 21:30 BP Pulse Ox O2 Del Method O2 Flow Rate 07/28/24 07:10 155/67 H 90 Room Air 07/28/24 04:26 148/68 H 95 Room Air 07/27/24 23:00 90 Nasal Cannula 3 07/27/24 21:46 07/27/24 21:30 Oxymask 3 Laboratory Results Laboratory Results - last 24 hr 07/27/24 07/28/24 07/28/24 11:25 05:51 07:13 WBC 6.07 RBC 2.90 L Hgb 8.5 L Hct 26.4 L MCV 91.0 MCH 29.3 MCHC 32.2 RDW Std Deviation 49.6 H RDW Coeff of Iraida 14.9 H Plt Count 47 L MPV 12.7 H Absolute Nucleated RBC 0.03 Nucleated RBC % (auto) 0.5 Blood Smear Review Pending Sodium 140 Potassium 3.9 Chloride 102 Carbon Dioxide 29 Anion Gap 9 BUN 43 H D Creatinine 4.03 H D Est Cr Clr Drug Dosing 16.5 eGFR 15.20 BUN/Creatinine Ratio 10.7 Glucose 78 POC Glucose 137 H 89 Calcium 8.2 L Phosphorus 2.6 Total Bilirubin 1.1 H AST 58 H ALT 62 H Alkaline Phosphatase 402 H Total Protein 4.9 L Albumin 2.8 L Globulin 2.1 L Albumin/Globulin Ratio 1.3 Microbiology 07/25/24 15:51 Aerobic Blood Culture - Preliminary Blood Pseudomonas aeruginosa Anaerobic Blood Culture - Preliminary No growth in Anaerobic bottle after 48 hours. 07/25/24 16:17 Aerobic Blood Culture - Preliminary Blood Pseudomonas aeruginosa Anaerobic Blood Culture - Preliminary No growth in Anaerobic bottle after 48 hours. 07/26/24 11:33 Aerobic Blood Culture - Preliminary Blood No growth in Aerobic bottle after 24 hours. Anaerobic Blood Culture - Preliminary No growth in Anaerobic bottle after 24 hours. 07/26/24 11:34 Aerobic Blood Culture - Preliminary Blood No growth in Aerobic bottle after 24 hours. Anaerobic Blood Culture - Preliminary No growth in Anaerobic bottle after 24 hours. 07/25/24 21:06 Gram Stain - Final Sputum, Expectorated Sputum Culture - Final Moderate normal renny. PG Care Time/CCT Total # of Minutes Spent Total Time Spent with Patient: Total time spent is greater than 50% in coordination of care (as documented) at patient's floor/unit and/or counseling patient: Coding Level of Care Code 75370 SUB INP/OBS CARE 3/50MIN Diagnoses Acute renal failure N17.9 Chronic Kidney Disease N18.9 Neutropenic fever D70.9; R50.81 Sepsis A41.9 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
[2024-07-28 08:50] LABS: ANC (manual) 2.91 K/uL (1.4-6.5); Basophils # (manual) 0.06 K/uL (0-0.2); Basophils % (manual) 1 %; Blast # (manual) 0.18 K/uL (0-0); Blast Cells % (manual) 3 %; Dohle Bodies 1+; Eosinophils # (manual) 0.12 K/uL (0-0.50); Eosinophils % (manual) 2 %; Lymphocytes % (manual) 23 %; Metamyelocytes # (manual) 0.24 K/uL (0-0); Metamyelocytes % (manual) 4 %; Monocytes # (manual) 0.91 K/uL (0.11-0.59); Monocytes % (manual) 15 %; Myelocytes # (manual) 0.18 K/uL (0-0); Myelocytes % (manual) 3 %; Neutrophils # (manual) 2.91 K/uL (1.40-6.50); Neutrophils % (manual) 48 %; Promyelocytes # (manual) 0.06 K/uL (0-0); Promyelocytes % (manual) 1 %; Toxic Granulation 1+
--- NOTE | 2024-07-28 09:27 | Infectious Disease Consult ---
Date of Consultation July 28, 2024 Assessment & Plan (1) Metastasis to liver: (2) Diarrhea: (3) Sepsis: (4) Pancytopenia: (5) Neutropenic fever: (6) Small cell lung cancer: Plan This is a 69-year-old man with a past medical history of small cell lung cancer with metastasis on chemotherapy-carboplatin/etoposide, (cycle 1 day 1 on 07/16/2024, cycle 1 day 2 on 07/17/2024), tumor lysis syndrome, lung mass, end- stage renal disease on HD Saturday/Saturday/Saturday, COPD with emphysema, presents on 07/25/2024 with fever, lightheadedness, mild cough. He has an HD catheter in place (placed 07/14/2024): Last dialysis on 07/24/2024. He denies sweats, chills, pain at catheter site, headache, new rash, changeurine habits. He complains of diarrhea for several days His is at bedside. Daughter is on the phone and provide additional history. In the ED, temperature 37.8, pulse 76, RR 20, blood pressure 168/74, O2 sats 92% on room air. Labs WBC 0.60, ANC 0.09, hemoglobin 9, hematocrit 27.6, platelets 18, BUN 61, creatinine 6.27. Procalcitonin 99.90. Urinalysis is 0-5 WBC. I nfluenza, RSV, COVID testing negative. Complete viral respiratory panel negative. Blood cultures growing Pseudomonas aeruginosa in 2 out of 4 bottles (resistant to cefepime, ceftazidime, Zosyn) C diff testing negative. CXR shows new left basilar atelectasis or pneumonia and trace left pleural effusion. Stable left hilar mass. Increased interstitial markings typical of pneumonitis or vascular congestion. CTAP shows an enlarged liver with multiple ill-defined low-density mass lesions throughout the entire liver; Likely diffuse metastasis. No acute inflammatory changes are seen involving the bowel. No pneumoperitoneum or abscess. he was initiallily on Zosyn but changed to Meropenem today. ID consulted for Pseudomonas bacteremia. Microbiology: Blood cultures bottles positive for Pseudomonas aeruginosa ( P aer[facility] M.[facility]. --- --------- Amikacin S <=16 Aztreonam R >16 Cefepime R >16 Ceftazidime R >16 Ciprofloxacin S <=0.25 Gentamicin S 4 Levofloxacin S <=0.5 Meropenem S <=1 Tobramycin S <=2 Pip/Tazo R >64 Sputum culture 07/25 few gram-negative rods, few GPC on Gram stain, normal moderate renny on culture. UA ne Blood culture 07/26 NGTD Blood culture 07/27 HD catheter line NGTD Antibiotics: Cefepime 07/25 Zosyn 07/26 - 07/27 Meropenem 07/28ongoing #Pancytopenia with neutropenia #MDR Pseudomonas Bacteremia #ESRD ON HD via R chest HD catheter #? Pneumonia # metastatic SCC of Lung on chemotherapy #B/L shoulder surgery with screws in place ( per his report) #Diarrhea #Febrile at home #Elevated procalcitonin Source of Pseudomonas bacteremia is not yet clear. Although he presents with cough there is no anupam infiltrates on lung imaging. His procalcitonin is markedly elevated, however this is hard to interpret in the setting of cancer aand end-stage renal disease requiring dialysis. He denies urinary symptoms. UA results not consistent with infection. He has diarrhea but would not expect a Pseudomonas to be the cause of this. His right chest HD catheter without signs of infection on exam, however in the setting of Pseudomonas bacteremia, line infection should be ruled out. He has no open wounds or rashes on exam. In setting of MDR Pseudomonas bacteremia, immunocompromised state and neutropenia, line should be removed if infected. Line removal is warranted in bacteremia with organisms such as pseudomonas , staph aureus and sae given their virulence. Recommendations -Continue Meropenem 1 gram Iv daily ( HD dosing) -Fu repeat BC07/26 from Peripheral and BC 07/27 from HD line -Consider HD line removal in setting of Pseudomonas bacteremia of unk etiology in immunocompromised and neutropenic patient. MDR Pseudomonas has a relatively high virulence and relatively low likelihood of treatment response of bacteremia with antibiotic therapy alone if potential source remains D/w hospitalist. Thank you for this consult. ID will continue to follow. Karen Fuchs MD, MPH Infectious Disease [facility], [facility] Call [phone] with questions Consultation Information Consultation was provided via telemedicine using two-way real-time interactive telecommunication between the patient and the telemedicine provider. For the duration of the visit, the provider was performing the assessment from a different facility than the patient. This includesuse of bluetooth stethoscope forauscultationperformed by the telepresenter that the telemedicine provider can hear if described in the physical exam. Party Plan Sales Host/Hostess contact information: Please call [facility] Call Center . (Phone Number For Physician Use Only) After establishing a telemedicine visit, patient was: Patient was verified with two unique identifiers Time Spent with Patient: Initial => 75 min History of Present Illness Reason for Consultation: Pseudomonas bacteremia and HD catheter in place Requesting Physician: Jeyson Garcia MD Attending Physician: Jeyson Garcia MD History of Present Illness This is a 69-year-old man with a past medical history of small cell lung cancer with metastasis on chemotherapy-carboplatin/etoposide, (cycle 1 day 1 on 07/16/2024, cycle 1 day 2 on 07/17/2024), tumor lysis syndrome, lung mass, end- stage renal disease on HD Saturday/Saturday/Saturday, COPD with emphysema, presents on 07/25/2024 with fever, lightheadedness, mild cough. He has an HD catheter in place (placed 07/14/2024): Last dialysis on 07/24/2024. He denies sweats, chills, pain at catheter site, headache, new rash, changeurine habits. He complains of diarrhea for several days His is at bedside. Daughter is on the phone and provide additional history. In the ED, temperature 37.8, pulse 76, RR 20, blood pressure 168/74, O2 sats 92% on room air. Labs WBC 0.60, ANC 0.09, hemoglobin 9, hematocrit 27.6, platelets 18, BUN 61, creatinine 6.27. Procalcitonin 99.90. Urinalysis is 0-5 WBC. Influenza, RSV, COVID testing negative. Complete viral respiratory panel negative. Blood cultures growing Pseudomonas aeruginosa in 2 out of 4 bottles (resistant to cefepime, ceftazidime, Zosyn) C diff testing negative. CXR shows new left basilar atelectasis or pneumonia and trace left pleural effusion. Stable left hilar mass. Increased interstitial markings typical of pneumonitis or vascular congestion. CTAP shows an enlarged liver with multiple ill-defined low-density mass lesions throughout the entire liver; Likely diffuse metastasis. No acute inflammatory changes are seen involving the bowel. No pneumoperitoneum or abscess. he was initiallily on Zosyn but changed to Meropenem today. ID consulted for Pseudomonas bacteremia. Allergies Allergy/AdvReac Type Severity Reaction Status Date / Time No Known Allergies Allergy Verified 05/14/24 10:40 Home Medications Medication Instructions Recorded Confirmed Type betamethasone dipropionate 0.05 % 1 applic topical BID PRN skin 08/03/21 07/25/24 Rx topical cream irritation #45 grams carvedilol 25 mg tablet 25 mg PO BID #60 tabs 08/03/21 07/25/24 Rx triamcinolone acetonide 0.1 % 1 applic topical BID PRN Dry 08/03/21 07/25/24 Rx topical cream scaling areas #15 grams finasteride 5 mg tablet 5 mg PO DAILY #90 tabs 08/13/23 07/25/24 Rx sildenafil (pulm.hypertension) 20 40 mg (2 x 20 mg) PO 3XWK #90 tabs 04/01/24 07/25/24 Rx mg tablet (Revatio) lansoprazole 30 mg capsule,delayed 30 mg PO DAILY PRN heart burn 07/12/24 07/25/24 History release allopurinol 300 mg tablet 300 mg PO DAILY #14 tabs 07/21/24 07/25/24 Rx benzonatate 100 mg capsule 100 mg PO BID PRN cough #20 caps 07/21/24 07/25/24 Rx blood-glucose meter (OneTouch #1 ea 07/21/24 07/23/24 Rx Verio Flex Start kit) guaifenesin 600 mg tablet, 600 mg PO BID #10 tabs 07/21/24 07/25/24 Rx extended release 12 hr (Mucinex) melatonin 3 mg capsule 3 mg PO HS #20 caps 07/21/24 07/25/24 Rx ondansetron 4 mg disintegrating 4 mg PO BID PRN nausea and 07/21/24 07/25/24 Rx tablet vomiting #14 tabs umeclidinium 62.5 mcg/actuation 1 inh inhalation DAILY #7 ea 07/21/24 07/25/24 Rx blister powder for inhalation (Incruse Ellipta) blood-glucose meter (OneTouch #1 ea 07/22/24 07/23/24 Rx Verio Flex Start kit) rosuvastatin 10 mg tablet 10 mg PO QPM #90 tabs 07/22/24 07/25/24 Rx trazodone 50 mg tablet 50 mg PO .qhs #30 tabs 07/22/24 07/25/24 Rx calcium acetate 667 mg tablet 1,334 mg PO .with meals 07/23/24 07/25/24 History olanzapine 2.5 mg tablet 2.5 mg PO DIRECTED 07/25/24 07/25/24 History ondansetron 8 mg disintegrating 8 mg PO DIRECTED PRN n/v 07/25/24 07/25/24 History tablet prochlorperazine maleate 10 mg 10 mg PO DIRECTED PRN n/v 07/25/24 07/25/24 History tablet Patient History Medical History Full thickness rotator cuff tear History of COVID-2019, mild symptoms Surgical History History of arthroscopy of right shoulder 18 years ago History of colonoscopy Hx of LASIK bilateral Family History Son Kidney disease Social History Smoking Status: Former smoker Tobacco Type: Cigarettes Age Started Using Tobacco: 19; packs per day: 1.5; Cigarettes Per Day: 30; Second Hand Exposure: Yes (childhood); Do You Dip or Chew Tobacco: No; Hx Alcohol Use: No Hx Substance Use: No Preferred Language: Albanian Communication Ability: Effective Impregnator Required: No Beliefs That Will Affect Care: None marital status: marital status details: but still living together Current Living Situation: Spouse current occupational status: retired How many Children do You have: 2 Feels Safe at Home: Yes Childhood Exposure to Second-Hand Smoke: Yes Diet: regular caffeine: Yes Dental Care, Regularly: Yes Physical Activity Frequency: Other Physical Activity Frequency Comment: Outside work Seatbelt Use: sometimes Sunscreen Use: Yes Assistive Devices: Cane Review of System A 10 point ROS obtained. Pertinent positives as per HPI Physical Exam Physical Exam: Gen- + pallor, NAD, on RA Neck- supple Lungs- Non labored breathing, On RA. Right Chest HD cath. Not tender, not warm, no surrounding erythema Abdomen- softly distended, not tender Extremities- BL LE edema - No cva or suprapubic tenderness. Neuro-AAO times 3 Psych-cooperative Skin- No rash or open wounds. Results & Data Vital Signs (Past 12 Hours) Vital Signs Temp Pulse Pulse Pulse Pulse Resp BP 07/28/24 07:10 36.8 C 70 18 07/28/24 04:26 36.9 C 80 18 07/27/24 23:00 37.1 C 81 16 133/65 07/27/24 21:46 80 07/27/24 21:30 BP Pulse Ox O2 Del Method O2 Flow Rate 07/28/24 07:10 155/67 H 90 Room Air 07/28/24 04:26 148/68 H 95 Room Air 07/27/24 23:00 90 Nasal Cannula 3 07/27/24 21:46 07/27/24 21:30 Oxymask 3 Laboratory Results Laboratory Results - last 48 hr 07/25/24 07/26/24 07/26/24 17:06 11:25 16:29 WBC RBC Hgb Hct MCV MCH MCHC RDW Std Deviation RDW Coeff of [place] Plt Count MPV Immature Gran % (Auto) Neut % (Auto) Lymph % (Auto) Emery % (Auto) Eos % (Auto) Baso % (Auto) Neut # (Auto) Lymph # (Auto) Emery # (Auto) Eos # (Auto) Baso # (Auto) Immature Gran # (Auto) Absolute Nucleated RBC Nucleated RBC % (auto) Neutrophils % (Manual) Lymphocytes % (Manual) Monocytes % (Manual) Eosinophils % (Manual) Basophils % (Manual) Metamyelocytes % (Man) Myelocytes % (Man) Promyelocytes % (Man) Blast Cells % (Manual) Neutrophils # (Manual) Total Absolute Neuts Lymphocytes # (Manual) Total Abs Lymphocytes Monocytes # (Manual) Eosinophils # (Manual) Basophils # (Manual) Metamyelocytes # (Man) Myelocytes # (Manual) Promyelocytes # (Man) Blast Cells # (Man) Toxic Granulation Dohle Bodies Sodium Potassium Chloride Carbon Dioxide Anion Gap BUN Creatinine Est Cr Clr Drug Dosing eGFR BUN/Creatinine Ratio Glucose POC Glucose 143 H 170 H Calcium Phosphorus Total Bilirubin AST ALT Alkaline Phosphatase Total Protein Albumin Globulin Albumin/Globulin Ratio Urine Color Urine Appearance Urine pH Ur Specific [place] Urine Protein Urine Glucose (UA) Urine Ketones Urine Blood Urine Nitrite Urine Bilirubin Urine Urobilinogen Ur Leukocyte Esterase Urine WBC (Auto) Urine RBC (Auto) U Hyaline Cast (Auto) U Epithel Cells (Auto) Urine Bacteria (Auto) Blood Type O Positive Antibody Screen NEGATIVE 07/26/24 07/26/24 07/27/24 20:25 Unknown 06:36 WBC 1.35 L RBC 2.86 L Hgb 8.4 L Hct 25.7 L MCV 89.9 MCH 29.4 MCHC 32.7 RDW Std Deviation 47.8 H RDW Coeff of [place] 14.6 H Plt Count 32 L D MPV 12.8 H Immature Gran % (Auto) 0.0 Neut % (Auto) 23.7 Lymph % (Auto) 50.4 Emery % (Auto) 23.7 Eos % (Auto) 2.2 Baso % (Auto) 0.0 Neut # (Auto) 0.32 L* Lymph # (Auto) 0.68 L Emery # (Auto) 0.32 Eos # (Auto) 0.03 Baso # (Auto) 0.00 Immature Gran # (Auto) 0.00 L Absolute Nucleated RBC 0.03 Nucleated RBC % (auto) 2.2 Neutrophils % (Manual) Lymphocytes % (Manual) Monocytes % (Manual) Eosinophils % (Manual) Basophils % (Manual) Metamyelocytes % (Man) Myelocytes % (Man) Promyelocytes % (Man) Blast Cells % (Manual) Neutrophils # (Manual) Total Absolute Neuts Lymphocytes # (Manual) Total Abs Lymphocytes Monocytes # (Manual) Eosinophils # (Manual) Basophils # (Manual) Metamyelocytes # (Man) Myelocytes # (Manual) Promyelocytes # (Man) Blast Cells # (Man) Toxic Granulation 2+ Dohle Bodies 2+ Sodium 140 Potassium 4.2 Chloride 102 Carbon Dioxide 27 Anion Gap 11 BUN 87 H Creatinine 6.00 H* D Est Cr Clr Drug Dosing 11.1 eGFR 9.43 BUN/Creatinine Ratio 14.5 Glucose 98 POC Glucose 119 H Calcium 8.1 L Phosphorus Total Bilirubin 1.2 H AST 56 H ALT 61 H Alkaline Phosphatase 383 H Total Protein 4.8 L Albumin 2.8 L Globulin 2.0 L Albumin/Globulin Ratio 1.4 Urine Color Yellow Urine Appearance Clear Urine pH 7.5 Ur Specific [place] 1.012 Urine Protein 2+ H Urine Glucose (UA) Negative Urine Ketones Negative Urine Blood 2+ H Urine Nitrite Negative Urine Bilirubin Negative Urine Urobilinogen Negative Ur Leukocyte Esterase Negative Urine WBC (Auto) 0-5 Urine RBC (Auto) 0-2 U Hyaline Cast (Auto) 3-5 H U Epithel Cells (Auto) 0-2 Urine Bacteria (Auto) None Seen Blood Type Antibody Screen 07/27/24 07/27/24 07/28/24 07:47 11:25 05:51 WBC 6.07 RBC 2.90 L Hgb 8.5 L Hct 26.4 L MCV 91.0 MCH 29.3 MCHC 32.2 RDW Std Deviation 49.6 H RDW Coeff of [place] 14.9 H Plt Count 47 L MPV 12.7 H Immature Gran % (Auto) Neut % (Auto) Lymph % (Auto) Emery % (Auto) Eos % (Auto) Baso % (Auto) Neut # (Auto) Lymph # (Auto) Emery # (Auto) Eos # (Auto) Baso # (Auto) Immature Gran # (Auto) Absolute Nucleated RBC 0.03 Nucleated RBC % (auto) 0.5 Neutrophils % (Manual) 48 Lymphocytes % (Manual) 23 Monocytes % (Manual) 15 Eosinophils % (Manual) 2 Basophils % (Manual) 1 Metamyelocytes % (Man) 4 Myelocytes % (Man) 3 Promyelocytes % (Man) 1 Blast Cells % (Manual) 3 Neutrophils # (Manual) 2.91 Total Absolute Neuts 2.91 Lymphocytes # (Manual) 1.40 Total Abs Lymphocytes 1.40 Monocytes # (Manual) 0.91 H Eosinophils # (Manual) 0.12 Basophils # (Manual) 0.06 Metamyelocytes # (Man) 0.24 H Myelocytes # (Manual) 0.18 H Promyelocytes # (Man) 0.06 H Blast Cells # (Man) 0.18 H Toxic Granulation 1+ Dohle Bodies 1+ Sodium 140 Potassium 3.9 Chloride 102 Carbon Dioxide 29 Anion Gap 9 BUN 43 H D Creatinine 4.03 H D Est Cr Clr Drug Dosing 16.5 eGFR 15.20 BUN/Creatinine Ratio 10.7 Glucose 78 POC Glucose 116 H 137 H Calcium 8.2 L Phosphorus 2.6 Total Bilirubin 1.1 H AST 58 H ALT 62 H Alkaline Phosphatase 402 H Total Protein 4.9 L Albumin 2.8 L Globulin 2.1 L Albumin/Globulin Ratio 1.3 Urine Color Urine Appearance Urine pH Ur Specific [place] Urine Protein Urine Glucose (UA) Urine Ketones Urine Blood Urine Nitrite Urine Bilirubin Urine Urobilinogen Ur Leukocyte Esterase Urine WBC (Auto) Urine RBC (Auto) U Hyaline Cast (Auto) U Epithel Cells (Auto) Urine Bacteria (Auto) Blood Type Antibody Screen 07/28/24 07:13 WBC RBC Hgb Hct MCV MCH MCHC RDW Std Deviation RDW Coeff of [place] Plt Count MPV Immature Gran % (Auto) Neut % (Auto) Lymph % (Auto) Emery % (Auto) Eos % (Auto) Baso % (Auto) Neut # (Auto) Lymph # (Auto) Emery # (Auto) Eos # (Auto) Baso # (Auto) Immature Gran # (Auto) Absolute Nucleated RBC Nucleated RBC % (auto) Neutrophils % (Manual) Lymphocytes % (Manual) Monocytes % (Manual) Eosinophils % (Manual) Basophils % (Manual) Metamyelocytes % (Man) Myelocytes % (Man) Promyelocytes % (Man) Blast Cells % (Manual) Neutrophils # (Manual) Total Absolute Neuts Lymphocytes # (Manual) Total Abs Lymphocytes Monocytes # (Manual) Eosinophils # (Manual) Basophils # (Manual) Metamyelocytes # (Man) Myelocytes # (Manual) Promyelocytes # (Man) Blast Cells # (Man) Toxic Granulation Dohle Bodies Sodium Potassium Chloride Carbon Dioxide Anion Gap BUN Creatinine Est Cr Clr Drug Dosing eGFR BUN/Creatinine Ratio Glucose POC Glucose 89 Calcium Phosphorus Total Bilirubin AST ALT Alkaline Phosphatase Total Protein Albumin Globulin Albumin/Globulin Ratio Urine Color Urine Appearance Urine pH Ur Specific [place] Urine Protein Urine Glucose (UA) Urine Ketones Urine Blood Urine Nitrite Urine Bilirubin Urine Urobilinogen Ur Leukocyte Esterase Urine WBC (Auto) Urine RBC (Auto) U Hyaline Cast (Auto) U Epithel Cells (Auto) Urine Bacteria (Auto) Blood Type Antibody Screen Diagnostic Findings Microbiology 07/25/24 15:51 Blood Aerobic Blood Culture - Preliminary Pseudomonas aeruginosa 07/25/24 15:51 Blood Anaerobic Blood Culture - Preliminary No growth in Anaerobic bottle after 48 hours. 07/25/24 16:17 Blood Aerobic Blood Culture - Preliminary Pseudomonas aeruginosa 07/25/24 16:17 Blood Anaerobic Blood Culture - Preliminary No growth in Anaerobic bottle after 48 hours. 07/26/24 11:33 Blood Aerobic Blood Culture - Preliminary No growth in Aerobic bottle after 24 hours. 07/26/24 11:33 Blood Anaerobic Blood Culture - Preliminary No growth in Anaerobic bottle after 24 hours. 07/26/24 11:34 Blood Aerobic Blood Culture - Preliminary No growth in Aerobic bottle after 24 hours. 07/26/24 11:34 Blood Anaerobic Blood Culture - Preliminary No growth in Anaerobic bottle after 24 hours. 07/25/24 21:06 Sputum, Expectorated Gram Stain - Final 07/25/24 21:06 Sputum, Expectorated Sputum Culture - Final Moderate normal renny. Chest X-Ray 07/25/24 15:45 EXAM: Radiograph of the Chest 1 View INDICATION: Chest pain. TECHNIQUE: Frontal view of the chest. COMPARISON: 07/14/2024 FINDINGS: Lungs and pleural spaces: No change left perihilar mass. Increased thickening of the bronchovascular and interstitial markings. There is new patchy airspace disease in the left lung base and new trace left pleural effusion. No pneumothorax. Heart: Stable prominent cardiac shadow. Mediastinum: Normal contour. Bones/joints: No fracture, erosion or dislocation. Soft tissues: No abnormality noted. No radiopaque foreign body noted. Tubes, lines and devices: Right internal jugular central venous catheter tip in the distal superior vena cava. Upper abdomen: No abnormality noted. IMPRESSION: 1. New left basilar atelectasis or pneumonia and trace left pleural effusion. 2. Stable left hilar mass. 3. Increased interstitial markings typical of pneumonitis or vascular congestion. Aspiration not excluded. ACT 112: Negative or not required by law. Electronically signed by Kristi Larson 07-25-2024 4:26 PM Abdomen/Pelvis CT 07/25/24 18:33 Exam(s): CT ABDOMEN + PELVIS Without Contrast EXAM: CT Abdomen and Pelvis Without Intravenous Contrast CLINICAL HISTORY: Reason for exam: neutropenic fever, abdominal pain. TECHNIQUE: Axial computed tomography images of the abdomen and pelvis without intravenous contrast. CTDI is 26.25 mGy and DLP is 1215.35 mGy-cm. Automated exposure control was utilized for the study. A dose lowering technique was utilized adhering to the principles of ALARA. COMPARISON: July 12, 2024 FINDINGS: Lung bases: Unremarkable. No mass. No consolidation. Pleural space: Trace right and small left pleural effusions layering posteriorly measuring up to 4 cm on the left. ABDOMEN: Liver: The liver is enlarged measuring 23 cm craniocaudad the multiple ill-defined low-density mass lesions throughout the entire liver. The largest discrete mass measures 5.3 cm. Gallbladder and bile ducts: Unremarkable. No calcified stones. No ductal dilation. Pancreas: Unremarkable. No ductal dilation. Spleen: Unremarkable. No splenomegaly. Adrenals: 2.5 cm left adrenal nodule is nonspecific. Kidneys and ureters: Smooth oval 8 cm simple cysts in the right kidney. No follow-up is required. Smooth oval 2.7 cm simple cyst in the right kidney. No follow-up is required. No obstructing stones. No hydronephrosis. Stomach and bowel: See below. PELVIS: Appendix: The appendix is normal. Bowel loops are nondilated. No acute inflammatory changes are seen involving the bowel. There is mild diverticulosis of the colon. There is a small amount of free fluid in the pelvis. No pneumoperitoneum or abscess. Bladder: Unremarkable. No stones. Reproductive: Unremarkable as visualized. ABDOMEN and PELVIS: Intraperitoneal space: See above. Bones/joints: Moderate degenerative changes in the spine. No acute fracture or subluxation is seen. 8 mm inferior endplate defect at L3 could represent Schmorl's node. Moderate multilevel degenerative changes throughout the spine. No acute fracture or subluxation is seen. Soft tissues: Unremarkable. Vasculature: The abdominal aorta is severely calcified but nondilated. This is a noncontrast study. Lymph nodes: Unremarkable. No enlarged lymph nodes. IMPRESSION: 1. The liver is enlarged measuring 23 cm craniocaudad the multiple ill- defined low-density mass lesions throughout the entire liver. The largest discrete mass measures 5.3 cm. Likely diffuse metastasis. 2. The appendix is normal. Bowel loops are nondilated. No acute inflammatory changes are seen involving the bowel. There is mild diverticulosis of the colon. There is a small amount of free fluid in the pelvis. No pneumoperitoneum or abscess. 3. Moderate degenerative changes in the spine. No acute fracture or subluxation is seen. 8 mm inferior endplate defect at L3 could represent Schmorl's node. Consider bone scan to rule out metastasis. 4. Trace right and small left pleural effusions layering posteriorly measuring up to 4 cm on the left. 5. 2.5 cm left adrenal nodule is nonspecific, unchanged. Electronically signed by: Mt Underwood MD 07/25/24 20:03 PM Medications Administered Home Medications Medication Instructions Recorded Confirmed Last Taken betamethasone dipropionate 0.05 % 1 applic topical BID PRN skin 08/03/21 07/25/24 Unknown topical cream irritation #45 grams carvedilol 25 mg tablet 25 mg PO BID #60 tabs 08/03/21 07/25/24 07/24/23 02:30 triamcinolone acetonide 0.1 % 1 applic topical BID PRN Dry 08/03/21 07/25/24 Unknown topical cream scaling areas #15 grams finasteride 5 mg tablet 5 mg PO DAILY #90 tabs 08/13/23 07/25/24 Unknown sildenafil (pulm.hypertension) 20 40 mg (2 x 20 mg) PO 3XWK #90 tabs 04/01/24 07/25/24 Unknown mg tablet (Revatio) lansoprazole 30 mg capsule,delayed 30 mg PO DAILY PRN heart burn 07/12/24 07/25/24 Unknown release allopurinol 300 mg tablet 300 mg PO DAILY #14 tabs 07/21/24 07/25/24 Unknown benzonatate 100 mg capsule 100 mg PO BID PRN cough #20 caps 07/21/24 07/25/24 Unknown blood-glucose meter (OneTouch #1 ea 07/21/24 07/23/24 Unknown Verio Flex Start kit) guaifenesin 600 mg tablet, 600 mg PO BID #10 tabs 07/21/24 07/25/24 Unknown extended release 12 hr (Mucinex) melatonin 3 mg capsule 3 mg PO HS #20 caps 07/21/24 07/25/24 Unknown ondansetron 4 mg disintegrating 4 mg PO BID PRN nausea and 07/21/24 07/25/24 Unknown tablet vomiting #14 tabs umeclidinium 62.5 mcg/actuation 1 inh inhalation DAILY #7 ea 07/21/24 07/25/24 Unknown blister powder for inhalation (Incruse Ellipta) blood-glucose meter (OneTouch #1 ea 07/22/24 07/23/24 Unknown Verio Flex Start kit) rosuvastatin 10 mg tablet 10 mg PO QPM #90 tabs 07/22/24 07/25/24 Unknown trazodone 50 mg tablet 50 mg PO .qhs #30 tabs 07/22/24 07/25/24 Unknown calcium acetate 667 mg tablet 1,334 mg PO .with meals 07/23/24 07/25/24 Unknown olanzapine 2.5 mg tablet 2.5 mg PO DIRECTED 07/25/24 07/25/24 Unknown ondansetron 8 mg disintegrating 8 mg PO DIRECTED PRN n/v 07/25/24 07/25/24 Unknown tablet prochlorperazine maleate 10 mg 10 mg PO DIRECTED PRN n/v 07/25/24 07/25/24 Unknown tablet Active Medications Generic Name Dose Route Start Last Admin Trade Name Freq PRN Reason Stop Dose Admin Acetaminophen 650 mg 07/25/24 20:32 07/28/24 00:54 Acetaminophen 325 Mg Tab PO 08/24/24 20:31 650 mg Q4H PRN Administration Fever/Mild Pain (Pain 1-5) Allopurinol 300 mg 07/26/24 09:00 07/28/24 08:36 Allopurinol 300 Mg Tab PO 08/25/24 08:59 300 mg DAILY IAM Administration Amlodipine Besylate 5 mg 07/26/24 11:15 07/28/24 08:36 Amlodipine Besylate 5 Mg Tab PO 08/25/24 11:14 5 mg QAM IAM Administration Calamine/Phenol 1 appln 07/26/24 08:33 07/26/24 11:59 Menthol-Zinc Oxide 360 Appln/120 Gm Tube EXT 08/25/24 08:59 1 appln QID PRN Administration skin protection Calcium Acetate 1,334 mg 07/25/24 21:00 07/28/24 08:36 Calcium Acetate 667 Mg Cap/Tab PO 08/24/24 20:59 1,334 mg TIDM IAM Administration Carvedilol 25 mg 07/25/24 21:00 07/28/24 08:37 Carvedilol 25 Mg Tab PO 08/24/24 20:59 25 mg BID IAM Administration Finasteride 5 mg 07/26/24 09:00 07/28/24 08:37 Finasteride 5 Mg Tab PO 08/25/24 08:59 5 mg DAILY IAM Administration Guaifenesin 600 mg 07/25/24 21:00 07/28/24 08:37 Guaifenesin 600 Mg Tabcr PO 08/24/24 20:59 600 mg BID IAM Administration Meropenem 500 mg/ Syringe 10 mls @ 2 mls/min 07/28/24 08:00 07/28/24 08:35 IV 08/11/24 07:59 2 mls/min Q24H IAM Administration Protocol Loperamide HCl 2 mg 07/26/24 08:33 07/28/24 08:40 Loperamide Hcl 2 Mg Cap PO 08/25/24 08:32 2 mg TID PRN Administration loose stool Melatonin 3 mg 07/25/24 21:00 07/27/24 21:21 Melatonin 3 Mg Tab PO 08/24/24 20:59 Not Given HS IAM Oxycodone HCl 5 mg 07/25/24 20:32 07/27/24 08:50 Oxycodone Hcl Ir 5 Mg Tab (Immediate Release) PO 08/08/24 20:31 5 mg Q6H PRN Administration Mod/severe Pain (6-10) on NRS Rosuvastatin Calcium 10 mg 07/25/24 21:00 07/27/24 21:21 Rosuvastatin Calcium 10 Mg Tab PO 08/24/24 20:59 10 mg QPM IAM Administration Sildenafil Citrate 40 mg 07/27/24 09:00 07/27/24 08:51 Sildenafil Citrate 20 Mg Tablet PO 08/26/24 08:59 40 mg MoWeFr@0900 IAM Administration Trazodone HCl 50 mg 07/25/24 21:00 07/27/24 21:20 Trazodone Hcl 50 Mg Tab PO 08/24/24 20:59 50 mg HS IAM Administration Umeclidinium [place] 1 puffs 07/26/24 09:00 07/28/24 08:37 Umeclidinium [place] 62.5mcg/Blister 7 Puffs/Inhaler INH 08/25/24 08:59 1 puffs DAILY IAM Administration
[2024-07-28] MEDS ORDERED: CHOLESTYRAMINE LIGHT 4 GM PKT PO PRN (14:44)
[2024-07-28] MEDS: CHOLESTYRAMINE LIGHT 4 GM PKT PO ONE ×2 (16:09→20:58)
[2024-07-29 07:17] LABS: Hematocrit (blood only) 25.8 % (42.0-52.0); Hemoglobin 8.4 g/dl (14.0-18.0); Mean Corpuscular Hemoglobin 30.1 pg (25.0-34.0); Mean Corpuscular Hgb Conc 32.6 g/dL (32.0-36.0); Mean Corpuscular Volume 92.5 fL (80.0-100.0); Mean Platelet Volume 12.4 fL (9.4-12.4); Nucleated RBC # (auto) 0.13 K/uL (0.00-0.12); Nucleated RBC % (auto) 0.5 %; Platelet Count 65 K/uL (130-400); RDW Coefficient of Variation 15.2 % (11.5-14.5); RDW Standard Deviation 51.3 fL (36.4-46.3); Red Blood Count 2.79 M/uL (4.70-6.10); White Blood Count 24.15 K/ul (4.8-10.8)
[2024-07-29 07:29] LABS: BUN Creatinine Ratio 10.4 (10-20); Calcium 8.3 mg/dl (8.6-10.3); Creatinine Clr Calc Pharmacy 12.4 ml/min; Potassium 4.1 mmol/L (3.5-5.1)
--- NOTE | 2024-07-29 08:17 | Hospitalist Progress Note ---
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 admitted with neutropenic fever and productive cough following chemotherapy # Neutropenic fever caused by MDR Pseudomonas bacteremia. Could be pneumonia, CLABSI, urinary source. # Possible pneumonia - L base on CXR, sputum culture normal renny, elevated procalcitonin, MRSA nares neg -GCSF x 3 days. WBC 6-->24 overnight. 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 Vascular surgery consulted regarding line replacement in a few days after line holiday # Diarrhea - sounds like acute on chronic (or subacute) - probably effect of chemo, antibiotics and exacerbation of lactose intolerance. Rare but can be atypical paraneoplastic syndrome. CTA/P without acute abdominal infectious/inflammatory pathology --continue questran bid, imodium made him feel funny so changed to lomotil --C. diff negative, stool biofire negative --lactose free diet # Primary SCLC, multiple liver metastases, possible L3 met vs Schmorl's node Oncology following Recently completed inpatient chemo complicated by tumor lysis syndrome, treated with hemodialysis for urate nephropathy which continues Saturday - Hgb Transfusion threshold 8.0 given multiple comorbidities, platelet threshold with minor bleeding 30,000. Will resume oncologic management on outpatient once recovered. # Troponin elevation Minimally elevated troponin without exponential rise. Likely due to myocardial demand ischemia and/or impaired clearance with renal disease EKG sinus without territorial ischemia # DM2 Glucose checks AC/at bedtime A1c well-controlled 6.3% Continue diet control. Chronic stable issues: Hypertension: Continue carvedilol VTE PPx: starting chemopx tonight low dose SQ heparin after line removal. Admission and Anticipated Discharge Date Admission Date: July 25, 2024 Subjective feeling well except for persistent diarrhea - exploded after dialysis despite being n.p.o. with copious watery diarrhea. He has noticed increased cramping and abdominal pain after drinking boost. He does have some baseline lactose intolerance Physical Exam 2 Physical Exam: PHYSICAL EXAMINATION Last 24h vital signs reviewed, see documentation in flowsheet General: comfortable appearing, no distress, sitting up in bed HEENT: Normocephalic, atraumatic, pupils round and equal, sclerae anicteric, no conjunctival injection, moist mucus membranes Lungs: Normal respiratory effort. Clear to auscultation bilaterally. No RRW Heart: Regular rate and rhythm, no murmurs. No JVD. hemodialysis catheter has been removed Abdomen: Soft, nontender, nondistended. bowel tones increased and frequency Extremities: Warm, dry, well-perfused. 1+ bilateral pitting lower extremity edema. Neuro: Alert and oriented x 4, face symmetric, moves 4 extremities well Psych: Normal affect and behavior Results & Data Results & Data Vital Signs (Past 12 Hours) Vital Signs Temp Pulse Pulse Resp BP BP Pulse Ox 07/29/24 07:23 97.9 F 77 18 167/80 H 91 07/29/24 03:44 98.4 F 85 18 152/76 H 97 07/28/24 23:28 98.8 F 82 18 152/71 H 93 07/28/24 21:44 81 07/28/24 20:15 98.4 F 93 H 18 164/76 H 91 07/28/24 20:10 O2 Del Method O2 Flow Rate 07/29/24 07:23 Room Air 07/29/24 03:44 Oxymask 07/28/24 23:28 Room Air 07/28/24 21:44 07/28/24 20:15 Room Air 07/28/24 20:10 Oxymask 2 Laboratory Results 07/29/24 06:42 07/29/24 06:42 WBC 6-->24 PG Care Time/CCT Total # of Minutes Spent Total Time Spent with Patient: Total time spent is greater than 50% in coordination of care (as documented) at patient's floor/unit and/or counseling patient: Coding Level of Care Code 97939 SUB INP/OBS CARE 3/50MIN Diagnoses Neutropenic fever D70.9; R50.81 Pneumonia J18.9 Metastatic primary lung cancer C34.90 Acute renal failure N17.9 Pulmonary hypertension I27.20 Diarrhea R19.7 Pancytopenia D61.818
--- NOTE | 2024-07-29 08:34 | Nephrology Progress Note ---
Date of Service July 29, 2024 Assessment & Plan (1) Acute renal failure: Plan: * AVE due to TLS * No evidence of recovery at this time. Creatinine remains elevated in between dialysis treatments * POC discussed w/ primary service and vascular surgery today. ID recommends IJ TCC removal due to Pseudomonas sepsis. Will provide HD this am. Vascular surgery plans removal of IJ TCC this afternoon with replacement on Saturday (2) Chronic Kidney Disease: Plan: * CKD stage G3a/A3 (moderate impairment). Baseline Cr 1.5 w/ EGFR 48 cc/minute. Renal impairment has been attributed to DKD, hypertensive nephrosclerosis (3) Neutropenic fever: Plan: * G-CSF as per oncology (4) Sepsis: Plan: * Pseudomonas sepsis. Possible pulmonary, urinary or catheter related source * On piperacillin/tazobactam therapy * Afebrile > 48 hours, BP remains acceptable * Blood cx from catheter 07/27/24 was negative (5) Tumor lysis syndrome: Plan: * Has received rasburicase * 07/20/2024 uric acid 3.0. Dialysis is also helping to keep this within acceptable limits (6) Small cell lung cancer: Plan: * Chemotherapy as per oncology * Poor prognosis. Consider consultation w/ palliative care to discuss GOC/expectations (7) Pneumonia: Admission and Anticipated Discharge Date Admission Date: July 25, 2024 Subjective Mr. Arcos was evaluated in his hospital room this morning. He denied fever, dyspnea, productive cough, N/V/D. Review of Systems Constitutional: no fever Eyes: no problem reported Ear, Nose, Mouth, Throat: no problem reported Respiratory: no cough and no dyspnea Cardiovascular: no chest pain Gastrointestinal: no nausea, no vomiting and no diarrhea/loose stools Genitourinary: no dysuria Integumentary: no rash Physical Exam Constitutional: no acute distress Eyes: PERRL, conjunctivae normal, anicteric sclerae ENMT: external ear and nose normal, oropharynx normal Neck: trachea midline, no thyromegaly Respiratory: normal respiratory effort, lungs clear to auscultation Cardiovascular: RRR, no murmur, no edema Gastrointestinal (Abdomen): normal bowel sounds, soft, nontender, no hepatosplenomegaly Skin: no rashes, warm and dry Neurologic: Speech / Cognition: normal speech and normal cognition Results & Data Vital Signs (Past 12 Hours) Vital Signs Temp Pulse Pulse Resp BP BP Pulse Ox 07/29/24 07:23 36.6 C 77 18 167/80 H 91 07/29/24 03:44 36.9 C 85 18 152/76 H 97 07/28/24 23:28 37.1 C 82 18 152/71 H 93 07/28/24 21:44 81 O2 Del Method 07/29/24 07:23 Room Air 07/29/24 03:44 Oxymask 07/28/24 23:28 Room Air 07/28/24 21:44 Laboratory Results Laboratory Results - last 24 hr 07/28/24 07/28/24 07/28/24 05:51 11:51 16:06 WBC RBC Hgb Hct MCV MCH MCHC RDW Std Deviation RDW Coeff of Iraida Plt Count MPV Absolute Nucleated RBC Nucleated RBC % (auto) Neutrophils % (Manual) 48 Lymphocytes % (Manual) 23 Monocytes % (Manual) 15 Eosinophils % (Manual) 2 Basophils % (Manual) 1 Metamyelocytes % (Man) 4 Myelocytes % (Man) 3 Promyelocytes % (Man) 1 Blast Cells % (Manual) 3 Neutrophils # (Manual) 2.91 Total Absolute Neuts 2.91 Lymphocytes # (Manual) 1.40 Total Abs Lymphocytes 1.40 Monocytes # (Manual) 0.91 H Eosinophils # (Manual) 0.12 Basophils # (Manual) 0.06 Metamyelocytes # (Man) 0.24 H Myelocytes # (Manual) 0.18 H Promyelocytes # (Man) 0.06 H Blast Cells # (Man) 0.18 H Blood Smear Review Toxic Granulation 1+ Dohle Bodies 1+ Sodium Potassium Chloride Carbon Dioxide Anion Gap BUN Creatinine Est Cr Clr Drug Dosing eGFR BUN/Creatinine Ratio Glucose POC Glucose 94 110 H Calcium Stl C. diff Tox B Gene 07/28/24 07/29/24 07/29/24 20:48 05:39 06:42 WBC 24.15 H RBC 2.79 L Hgb 8.4 L Hct 25.8 L MCV 92.5 MCH 30.1 MCHC 32.6 RDW Std Deviation 51.3 H RDW Coeff of [place] 15.2 H Plt Count 65 L MPV 12.4 Absolute Nucleated RBC 0.13 H Nucleated RBC % (auto) 0.5 Neutrophils % (Manual) Lymphocytes % (Manual) Monocytes % (Manual) Eosinophils % (Manual) Basophils % (Manual) Metamyelocytes % (Man) Myelocytes % (Man) Promyelocytes % (Man) Blast Cells % (Manual) Neutrophils # (Manual) Total Absolute Neuts Lymphocytes # (Manual) Total Abs Lymphocytes Monocytes # (Manual) Eosinophils # (Manual) Basophils # (Manual) Metamyelocytes # (Man) Myelocytes # (Manual) Promyelocytes # (Man) Blast Cells # (Man) Blood Smear Review Toxic Granulation Dohle Bodies Sodium 141 Potassium 4.1 Chloride 104 Carbon Dioxide 27 Anion Gap 10 BUN 56 H Creatinine 5.38 H* D Est Cr Clr Drug Dosing 12.4 eGFR 10.75 BUN/Creatinine Ratio 10.4 Glucose 82 POC Glucose 99 87 Calcium 8.3 L Stl C. diff Tox B Gene 07/29/24 Unknown WBC RBC Hgb Hct MCV MCH MCHC RDW Std Deviation RDW Coeff of [place] Plt Count MPV Absolute Nucleated RBC Nucleated RBC % (auto) Neutrophils % (Manual) Lymphocytes % (Manual) Monocytes % (Manual) Eosinophils % (Manual) Basophils % (Manual) Metamyelocytes % (Man) Myelocytes % (Man) Promyelocytes % (Man) Blast Cells % (Manual) Neutrophils # (Manual) Total Absolute Neuts Lymphocytes # (Manual) Total Abs Lymphocytes Monocytes # (Manual) Eosinophils # (Manual) Basophils # (Manual) Metamyelocytes # (Man) Myelocytes # (Manual) Promyelocytes # (Man) Blast Cells # (Man) Blood Smear Review Toxic Granulation Dohle Bodies Sodium Potassium Chloride Carbon Dioxide Anion Gap BUN Creatinine Est Cr Clr Drug Dosing eGFR BUN/Creatinine Ratio Glucose POC Glucose Calcium Stl C. diff Tox B Gene Negative Cdiff Gene Microbiology 07/27/24 13:59 Aerobic Blood Culture - Preliminary Blood No growth in Aerobic bottle after 24 hours. Anaerobic Blood Culture - Preliminary No growth in Anaerobic bottle after 24 hours. 07/26/24 11:33 Aerobic Blood Culture - Preliminary Blood No growth in Aerobic bottle after 48 hours. Anaerobic Blood Culture - Preliminary No growth in Anaerobic bottle after 48 hours. 07/26/24 11:34 Aerobic Blood Culture - Preliminary Blood No growth in Aerobic bottle after 48 hours. Anaerobic Blood Culture - Preliminary No growth in Anaerobic bottle after 48 hours. 07/25/24 15:51 Aerobic Blood Culture - Preliminary Blood Pseudomonas aeruginosa Anaerobic Blood Culture - Preliminary No growth in Anaerobic bottle after 48 hours. PG Care Time/CCT Total # of Minutes Spent Total Time Spent with Patient: Total time spent is greater than 50% in coordination of care (as documented) at patient's floor/unit and/or counseling patient: Coding Level of Care Code 56483 SUB INP/OBS CARE 3/50MIN Diagnoses Acute renal failure N17.9 Chronic Kidney Disease N18.9 Neutropenic fever D70.9; R50.81 Sepsis A41.9 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
--- NOTE | 2024-07-29 09:30 | Consultation ---
Date of Consultation July 29, 2024 Assessment & Plan (1) Bacteremia: Pt with pseudomonas bacteremia in setting of severe neutropenia, and still requiring HD. Agree with removal of permcath, line holiday, and eventual replacement. Planning on permcath removal today after HD. Procedure, risks, benefits, and alternatives discussed with pt by myself at Dr Gallegos's request. Pt expresses understanding and agreement to proceed. History of Present Illness Reason for Consultation: bacteremia Attending Physician: Denise Light MD History of Present Illness 69 yo m with hx of SCLC, pancytopenia, tumor lysis syndrome, COPD, pulmonary htn, DMII, osteoarthritis, BPH, HTN, hyperlipidemia, admitted with bacteremia, seen in consultation today for permcath removal. Pt underwent permcath insertion by Dr Gallegos on 07/17/24 d/t AVE, and has continued on HD without renal recovery. He developed fever at home and came back to [facility] for eval. Pt noted to have pseudomonas bacteremia on initial cultures and ID eval recommended permcath removal/holiday/placement to prevent seeding. Pt frustrated, but understands the need for multiple procedures. Pt admits fatigue/malaise. Denies FUNG, chest pain, SOB, abd pain, N/V, rest pain, claudication, other complaints. Allergies Allergy/AdvReac Type Severity Reaction Status Date / Time No Known Allergies Allergy Verified 05/14/24 10:40 Home Medications Medication Instructions Recorded Confirmed Type betamethasone dipropionate 0.05 % 1 applic topical BID PRN skin 08/03/21 07/25/24 Rx topical cream irritation #45 grams carvedilol 25 mg tablet 25 mg PO BID #60 tabs 08/03/21 07/25/24 Rx triamcinolone acetonide 0.1 % 1 applic topical BID PRN Dry 08/03/21 07/25/24 Rx topical cream scaling areas #15 grams finasteride 5 mg tablet 5 mg PO DAILY #90 tabs 08/13/23 07/25/24 Rx sildenafil (pulm.hypertension) 20 40 mg (2 x 20 mg) PO 3XWK #90 tabs 04/01/24 07/25/24 Rx mg tablet (Revatio) lansoprazole 30 mg capsule,delayed 30 mg PO DAILY PRN heart burn 07/12/24 07/25/24 History release allopurinol 300 mg tablet 300 mg PO DAILY #14 tabs 07/21/24 07/25/24 Rx benzonatate 100 mg capsule 100 mg PO BID PRN cough #20 caps 07/21/24 07/25/24 Rx blood-glucose meter (OneTouch #1 ea 07/21/24 07/23/24 Rx Verio Flex Start kit) guaifenesin 600 mg tablet, 600 mg PO BID #10 tabs 07/21/24 07/25/24 Rx extended release 12 hr (Mucinex) melatonin 3 mg capsule 3 mg PO HS #20 caps 07/21/24 07/25/24 Rx ondansetron 4 mg disintegrating 4 mg PO BID PRN nausea and 07/21/24 07/25/24 Rx tablet vomiting #14 tabs umeclidinium 62.5 mcg/actuation 1 inh inhalation DAILY #7 ea 07/21/24 07/25/24 Rx blister powder for inhalation (Incruse Ellipta) blood-glucose meter (OneTouch #1 ea 07/22/24 07/23/24 Rx Verio Flex Start kit) rosuvastatin 10 mg tablet 10 mg PO QPM #90 tabs 07/22/24 07/25/24 Rx trazodone 50 mg tablet 50 mg PO .qhs #30 tabs 07/22/24 07/25/24 Rx calcium acetate 667 mg tablet 1,334 mg PO .with meals 07/23/24 07/25/24 History olanzapine 2.5 mg tablet 2.5 mg PO DIRECTED 07/25/24 07/25/24 History ondansetron 8 mg disintegrating 8 mg PO DIRECTED PRN n/v 07/25/24 07/25/24 History tablet prochlorperazine maleate 10 mg 10 mg PO DIRECTED PRN n/v 07/25/24 07/25/24 History tablet Patient History Medical History Full thickness rotator cuff tear History of COVID-2019, mild symptoms Surgical History History of arthroscopy of right shoulder 18 years ago History of colonoscopy Hx of LASIK bilateral Family History Son Kidney disease Social History Smoking Status: Former smoker Tobacco Type: Cigarettes Age Started Using Tobacco: 19; packs per day: 1.5; Cigarettes Per Day: 30; Second Hand Exposure: Yes (childhood); Do You Dip or Chew Tobacco: No; Hx Alcohol Use: No Hx Substance Use: No Preferred Language: Tajik Communication Ability: Effective Goat Farmer Required: No Beliefs That Will Affect Care: None marital status: marital status details: but still living together Current Living Situation: Spouse current occupational status: retired How many Children do You have: 2 Feels Safe at Home: Yes Childhood Exposure to Second-Hand Smoke: Yes Diet: regular caffeine: Yes Dental Care, Regularly: Yes Physical Activity Frequency: Other Physical Activity Frequency Comment: Outside work Seatbelt Use: sometimes Sunscreen Use: Yes Assistive Devices: Cane Review of Systems Review of Systems: All systems reviewed & are unremarkable except as noted in HPI & below Physical Exam Constitutional: WD/WN, vitals as above + ill appearing, cooperative and comfortable; not in distress Neck: trachea midline Respiratory: normal respiratory effort, lungs clear to auscultation Auscultation: + diminished lung sounds Cardiovascular: Rate/Rhythm: regular rate and regular rhythm Vessels: posterior tibial pulses present, dorsalis pedis pulses present and radial pulses present; + abnormal peripheral pulses Extremities: normal capillary refill Chest (Breasts): Chest: + vascular access device or port (R IJ, no erythema) Gastrointestinal (Abdomen): Inspection/Auscultation: abdomen normal to inspection and normal bowel sounds Percussion/Palpation: abdomen soft; abdomen nontender Musculoskeletal: no cyanosis or clubbing, extremities motor strength 5/5 Skin: no rashes, warm and dry Neurologic: moves all extremities and awake; no focal motor deficits and not confused Psychiatric: A+Ox3, euthymic affect Results & Data Vital Signs (Past 12 Hours) Vital Signs Temp Pulse Pulse Resp BP BP Pulse Ox 07/29/24 07:23 36.6 C 77 18 167/80 H 91 07/29/24 03:44 36.9 C 85 18 152/76 H 97 07/28/24 23:28 37.1 C 82 18 152/71 H 93 07/28/24 21:44 81 O2 Del Method 07/29/24 07:23 Room Air 07/29/24 03:44 Oxymask 07/28/24 23:28 Room Air 07/28/24 21:44
--- NOTE | 2024-07-29 15:13 | Pre Anesthesia Assessment ---
Date of Service July 29, 2024 Pre Sedation Assessment Vital Signs Temp Pulse Pulse Pulse Resp BP BP 07/29/24 14:48 36.4 C L 75 16 07/29/24 13:49 68 07/29/24 13:38 36.8 C 70 138/70 07/29/24 13:00 69 133/67 07/29/24 12:30 69 132/67 07/29/24 12:00 69 137/65 07/29/24 11:30 70 126/66 07/29/24 11:00 69 129/66 07/29/24 10:45 70 07/29/24 10:30 72 135/69 07/29/24 10:23 36.8 C 77 07/29/24 08:00 07/29/24 07:23 36.6 C 77 18 167/80 H 07/29/24 03:44 36.9 C 85 18 07/28/24 23:28 37.1 C 82 18 07/28/24 21:44 81 07/28/24 20:15 36.9 C 93 H 18 07/28/24 20:10 07/28/24 16:12 83 BP Pulse Ox O2 Del Method O2 Flow Rate 07/29/24 14:48 151/71 H 94 Room Air 07/29/24 13:49 07/29/24 13:38 07/29/24 13:00 07/29/24 12:30 07/29/24 12:00 07/29/24 11:30 07/29/24 11:00 07/29/24 10:45 07/29/24 10:30 07/29/24 10:23 07/29/24 08:00 Room Air 07/29/24 07:23 91 Room Air 07/29/24 03:44 152/76 H 97 Oxymask 07/28/24 23:28 152/71 H 93 Room Air 07/28/24 21:44 07/28/24 20:15 164/76 H 91 Room Air 07/28/24 20:10 Oxymask 2 07/28/24 16:12 Cardiovascular RRR, no murmur, no edema Respiratory normal respiratory effort, lungs clear to auscultation Pre-Sedation Airway Assessment Smoking Status: Former smoker Hx Sleep Apnea: No Short, Thick Neck: No Thyromental Distance: > or= 3.5 Finger Breadths Oral Cavity: + WNL Mallampati Class: II ASA: ASA3 NPO Status Date of Last Intake of Fluids: 07/29/24 Time of Last Intake of Fluids: 08:00 Date of Last Intake of Solid Food: 07/28/24 Time of Last Intake of Solid Foods: 18:00 Procedure Planning Contraindications for Sedation: none Current Medications Reviewed: Yes Notes The planned sedation has been discussed with the patient. Informed Consent was obtained. I have identified the patient, determined the appropriateness of sedation and have assessed the patient immediately prior to the procedure. All medicine(s) and interventions are by my order.
--- NOTE | 2024-07-29 15:23 | Operative Report ---
Post Operative Report Pre & Post Diagnosis Operation Date: 07/29/24 15:00 <No data on this case meets the specified criteria> I identified the patient and participated in the time-out.: Yes Procedure Operation Date: 07/29/24 15:00 Actual Procedures p Perm Catheter Removal, Moderate Sedation [id number] - Riki Gallegos MD Surgeon Riki Gallegos MD Production Stage Manager none Estimated Blood Loss 0 Findings Consistent with Post-Op Diagnosis Specimens tip sent for culture Anesthesia Type RN Sedation Complications none Disposition Accompanied Patient To Recovery: No Disposition: Recovery Room Indications This is a 69-year-old gentleman a PermCath placed recently. He is now in with sepsis. With positive blood culture it was recommended removing the PermCath. I have discussed the risks options and benefits of the procedure with the patient. The patient understands the risks options and benefits and agrees to the procedure. Description of Procedure The patient was taken to the angio suite and placed in the supine position. The patient was identified and a timeout performed. The right side of the neck, chest wall and catheter were prepped and draped in a sterile manner. Moderate conscious sedation was then accomplished. The cuff of the permcath was freed up from the surrounding fibrous tissue. The permcath and cuff were completely removed. Pressure was then applied and adequate hemostasis was obtained. A sterile dressing was then applied. The patient left the operation room in satisfactory condition and tolerated the procedure well. All needle and sponge counts were correct at the end of the procedure. Tip of the PermCath was sent for culture. I attest to the content of the Intraoperative Record and any orders documented therein. Any exceptions are noted below.
--- NOTE | 2024-07-29 15:23 | Post Anesthesia Assessment ---
Date of Service July 29, 2024 Post Sedation Assessment Vital Signs Temp Pulse Pulse Pulse Resp BP BP 07/29/24 15:21 72 16 07/29/24 15:20 72 16 07/29/24 15:15 70 16 07/29/24 14:48 36.4 C L 75 16 07/29/24 13:49 68 07/29/24 13:38 36.8 C 70 138/70 07/29/24 13:00 69 133/67 07/29/24 12:30 69 132/67 07/29/24 12:00 69 137/65 07/29/24 11:30 70 126/66 07/29/24 11:00 69 129/66 07/29/24 10:45 70 07/29/24 10:30 72 135/69 07/29/24 10:23 36.8 C 77 07/29/24 08:00 07/29/24 07:23 36.6 C 77 18 167/80 H 07/29/24 03:44 36.9 C 85 18 07/28/24 23:28 37.1 C 82 18 07/28/24 21:44 81 07/28/24 20:15 36.9 C 93 H 18 07/28/24 20:10 07/28/24 16:12 83 BP Pulse Ox O2 Del Method O2 Flow Rate 07/29/24 15:21 155/70 H 94 Oxymask 4 07/29/24 15:20 155/70 H 94 Oxymask 4 07/29/24 15:15 147/75 H Room Air 07/29/24 14:48 151/71 H 94 Room Air 07/29/24 13:49 07/29/24 13:38 07/29/24 13:00 07/29/24 12:30 07/29/24 12:00 07/29/24 11:30 07/29/24 11:00 07/29/24 10:45 07/29/24 10:30 07/29/24 10:23 07/29/24 08:00 Room Air 07/29/24 07:23 91 Room Air 07/29/24 03:44 152/76 H 97 Oxymask 07/28/24 23:28 152/71 H 93 Room Air 07/28/24 21:44 07/28/24 20:15 164/76 H 91 Room Air 07/28/24 20:10 Oxymask 2 07/28/24 16:12 Recovery Score Activity: Moves 4 extremities Respiration: Deep Breath/Cough Circulation: +/-20% PreAnes Value Consciousness: Arouseable (by name) Oxygen Saturation: O2 needed for >90% Post Anesthesia Score: 8 Discharge Sedation Level of Care: Fast Track Phase II Post Sedation Plan On clinical assessment, the patient appears to have tolerated the sedation without complications. Patient is recovering as anticipated. Patient will continue to be monitored by nursing and may be discharged when sedation discharge criteria are met per below protocol. Upon Completions of procedure up to 15 minutes continue every 5 minute vital signs and the P.A.R. score; then discharge to a Phase I or Fast Track to Phase II per the following guidelines: * Discharge Patient to appropriate Phase II area if PAR is 8 or greater or return to pre- procedure baseline. The post - procedure orders will be as directed. * If PAR score is less than 8 or not return to pre-procedure baseline then patient will follow Phase I monitoring till PAR is reached for Phase II. The Phase I may be done in procedure room or may call to secure a Phase I area. * If naloxone or flumazenil are used for reversal, hold in Phase I for continued monitoring from when last reversal dose was given for a minimum of 60 minutes or longer pending the nurse and/or physician discretion of patient condition before discharge to Phase II. Please call the Sedation Physician to re-evaluate and complete post-note for discharge to Phase II area. Do NOT discharge from procedure sedation or Phase 1 until post- sedation evaluation note is complete by procedure /sedation MD Sedation Discharge Instructions to be given to the patient at discharge to home.
[2024-07-29] MEDS: fentaNYL citrate PF 100 MCG/2 ML VIAL ONE (15:25)
[2024-07-29] MEDS: MIDAZOLAM HCL 1 MG/ML 2ML VIAL ONE (15:25)
--- NOTE | 2024-07-29 15:45 | Infectious Disease Progress Nt ---
Date of Service July 29, 2024 Assessment & Plan (1) Metastasis to liver: (2) Diarrhea: (3) Sepsis: (4) Pancytopenia: (5) Neutropenic fever: (6) Small cell lung cancer: Plan This is a 69-year-old man with a past medical history of small cell lung cancer with metastasis on chemotherapy-carboplatin/etoposide, (cycle 1 day 1 on 07/16/2024, cycle 1 day 2 on 07/17/2024), tumor lysis syndrome, lung mass, end- stage renal disease on HD Saturday/Saturday/Saturday, COPD with emphysema, presents on 07/25/2024 with fever, lightheadedness, mild cough. He has an HD catheter in place (placed 07/14/2024): Last dialysis on 07/24/2024. He denies sweats, chills, pain at catheter site, headache, new rash, changeurine habits. He complains of diarrhea for several days His is at bedside. Daughter is on the phone and provide additional history. In the ED, temperature 37.8, pulse 76, RR 20, blood pressure 168/74, O2 sats 92% on room air. Labs WBC 0.60, ANC 0.09, hemoglobin 9, hematocrit 27.6, platelets 18, BUN 61, creatinine 6.27. Procalcitonin 99.90. Urinalysis is 0-5 WBC. Influenza, RSV, COVID testing negative. Complete viral respiratory panel negative. Blood cultures growing Pseudomonas aeruginosa in 2 out of 4 bottles (resistant to cefepime, ceftazidime, Zosyn) C diff testing negative. CXR shows new left basilar atelectasis or pneumonia and trace left pleural effusion. Stable left hilar mass. Increased interstitial markings typical of pneumonitis or vascular congestion. CTAP shows an enlarged liver with multiple ill-defined low-density mass lesions throughout the entire liver; Likely diffuse metastasis. No acute inflammatory changes are seen involving the bowel. No pneumoperitoneum or abscess. he was initiallily on Zosyn but changed to Meropenem today. ID consulted for Pseudomonas bacteremia. Microbiology: Blood cultures bottles positive for Pseudomonas aeruginosa ( [facility] --- --------- Amikacin S <=16 Aztreonam R >16 Cefepime R >16 Ceftazidime R >16 Ciprofloxacin S <=0.25 Gentamicin S 4 Levofloxacin S <=0.5 Meropenem S <=1 Tobramycin S <=2 Pip/Tazo R >64 Sputum culture 07/25 few gram-negative rods, few GPC on Gram stain, normal moderate renny on culture. UA ne Blood culture 07/26 NGTD Blood culture 07/27 HD catheter line NGTD Antibiotics: Cefepime 07/25 Zosyn 07/26 - 07/27 Meropenem 07/28ongoing #Pancytopenia with neutropenia #MDR Pseudomonas Bacteremia #ESRD ON HD via R chest HD catheter #? Pneumonia # metastatic SCC of Lung on chemotherapy #B/L shoulder surgery with screws in place ( per his report) #Diarrhea #Febrile at home #Elevated procalcitonin Source of Pseudomonas bacteremia is not yet clear. Although he presents with cough there is no anupam infiltrates on lung imaging. His procalcitonin is markedly elevated, however this is hard to interpret in the setting of cancer aand end-stage renal disease requiring dialysis. He denies urinary symptoms. UA results not consistent with infection. He has diarrhea but would not expect a Pseudomonas to be the cause of this. His right chest HD catheter without signs of infection on exam, however in the setting of Pseudomonas bacteremia, line infection should be ruled out. He has no open wounds or rashes on exam. In setting of MDR Pseudomonas bacteremia, immunocompromised state and neutropeni a, line should be removed if infected. Line removal is warranted in bacteremia with organisms such as pseudomonas , staph aureus and sae given their virulence. These orgs have a relatively high virulence and relatively low likelihood of treatment response of bacteremia with antibiotic therapy alone if potential source remains 07/29 WBC 24. underwent HD line removal in setting of MDR Pseudomonas bacteremia of unk etiology in immunocompromised and neutropenic patient. Recommendations -Continue Meropenem 1 gram Iv daily ( HD dosing) -Fu repeat BC 07/26 from Peripheral and BC 07/27 from HD line -Monitor WBC Plan for 2 weeks of therapy post line removal if repeat BC remain sterile. ID will continue to follow. Karen Fuchs MD, MPH Infectious Disease [facility] Call [phone] with questions Admission and Anticipated Discharge Date Admission Date: July 25, 2024 Subjective This patient recommendation is based on a telemedicine consult request which was completed asynchronously through chart review and information provided by the primary physician. The patient was not seen or examined today. The evaluation is consultative in nature and all patient care and treatment decisions can either be accepted or rejected by the patient's primary hospital-based treating physician using their own independent medical judgment for their patient. Time Spent Reviewing Chart: 21 - 30 minutes WBc Up to 24.15, HD line removed. Results & Data Vital Signs (Past 12 Hours) Vital Signs Temp Pulse Pulse Pulse Resp BP BP 07/29/24 15:37 36.8 C 78 17 144/66 H 07/29/24 15:25 75 16 07/29/24 15:21 72 16 07/29/24 15:20 72 16 07/29/24 15:15 70 16 07/29/24 14:48 36.4 C L 75 16 07/29/24 13:49 68 07/29/24 13:38 36.8 C 70 138/70 07/29/24 13:00 69 133/67 07/29/24 12:30 69 132/67 07/29/24 12:00 69 137/65 07/29/24 11:30 70 126/66 07/29/24 11:00 69 129/66 07/29/24 10:45 70 07/29/24 10:30 72 135/69 07/29/24 10:23 36.8 C 77 07/29/24 08:00 07/29/24 07:23 36.6 C 77 18 167/80 H 07/29/24 03:44 36.9 C 85 18 BP Pulse Ox O2 Del Method O2 Flow Rate 07/29/24 15:37 93 Room Air 07/29/24 15:25 141/73 H 94 Oxymask 4 07/29/24 15:21 155/70 H 94 Oxymask 4 07/29/24 15:20 155/70 H 94 Oxymask 4 07/29/24 15:15 147/75 H Room Air 07/29/24 14:48 151/71 H 94 Room Air 07/29/24 13:49 07/29/24 13:38 07/29/24 13:00 07/29/24 12:30 07/29/24 12:00 07/29/24 11:30 07/29/24 11:00 07/29/24 10:45 07/29/24 10:30 07/29/24 10:23 07/29/24 08:00 Room Air 07/29/24 07:23 91 Room Air 07/29/24 03:44 152/76 H 97 Oxymask Laboratory Results Short CBC 07/29/24 Range/Units 06:42 WBC 24.15 H (4.8-10.8) K/ul Hgb 8.4 L (14.0-18.0) g/dl Hct 25.8 L (42.0-52.0) % Plt Count 65 L (130-400) K/uL BMP 07/29/24 06:42 Sodium 141 Potassium 4.1 Chloride 104 Carbon Dioxide 27 BUN 56 H Creatinine 5.38 H* D Glucose 82 Calcium 8.3 L Diagnostic Findings Microbiology 07/27/24 13:59 Blood Aerobic Blood Culture - Preliminary No growth in Aerobic bottle after 48 hours. 07/27/24 13:59 Blood Anaerobic Blood Culture - Preliminary No growth in Anaerobic bottle after 48 hours. 07/26/24 11:33 Blood Aerobic Blood Culture - Preliminary No growth in Aerobic bottle after 48 hours. 07/26/24 11:33 Blood Anaerobic Blood Culture - Preliminary No growth in Anaerobic bottle after 48 hours. 07/26/24 11:34 Blood Aerobic Blood Culture - Preliminary No growth in Aerobic bottle after 48 hours. 07/26/24 11:34 Blood Anaerobic Blood Culture - Preliminary No growth in Anaerobic bottle after 48 hours. 07/25/24 15:51 Blood Aerobic Blood Culture - Preliminary Pseudomonas aeruginosa 07/25/24 15:51 Blood Anaerobic Blood Culture - Preliminary No growth in Anaerobic bottle after 48 hours. 07/25/24 16:17 Blood Aerobic Blood Culture - Preliminary Pseudomonas aeruginosa 07/25/24 16:17 Blood Anaerobic Blood Culture - Preliminary No growth in Anaerobic bottle after 48 hours. 07/25/24 21:06 Sputum, Expectorated Gram Stain - Final 07/25/24 21:06 Sputum, Expectorated Sputum Culture - Final Moderate normal renny. Medications Administered Home Medications Medication Instructions Recorded Confirmed Last Taken betamethasone dipropionate 0.05 % 1 applic topical BID PRN skin 08/03/21 07/25/24 Unknown topical cream irritation #45 grams carvedilol 25 mg tablet 25 mg PO BID #60 tabs 08/03/21 07/25/24 07/24/23 02:30 triamcinolone acetonide 0.1 % 1 applic topical BID PRN Dry 08/03/21 07/25/24 Unknown topical cream scaling areas #15 grams finasteride 5 mg tablet 5 mg PO DAILY #90 tabs 08/13/23 07/25/24 Unknown sildenafil (pulm.hypertension) 20 40 mg (2 x 20 mg) PO 3XWK #90 tabs 04/01/24 07/25/24 Unknown mg tablet (Revatio) lansoprazole 30 mg capsule,delayed 30 mg PO DAILY PRN heart burn 07/12/24 07/25/24 Unknown release allopurinol 300 mg tablet 300 mg PO DAILY #14 tabs 07/21/24 07/25/24 Unknown benzonatate 100 mg capsule 100 mg PO BID PRN cough #20 caps 07/21/24 07/25/24 Unknown blood-glucose meter (OneTouch #1 ea 07/21/24 07/23/24 Unknown Verio Flex Start kit) guaifenesin 600 mg tablet, 600 mg PO BID #10 tabs 07/21/24 07/25/24 Unknown extended release 12 hr (Mucinex) melatonin 3 mg capsule 3 mg PO HS #20 caps 07/21/24 07/25/24 Unknown ondansetron 4 mg disintegrating 4 mg PO BID PRN nausea and 07/21/24 07/25/24 Unknown tablet vomiting #14 tabs umeclidinium 62.5 mcg/actuation 1 inh inhalation DAILY #7 ea 07/21/24 07/25/24 Unknown blister powder for inhalation (Incruse Ellipta) blood-glucose meter (OneTouch #1 ea 07/22/24 07/23/24 Unknown Verio Flex Start kit) rosuvastatin 10 mg tablet 10 mg PO QPM #90 tabs 07/22/24 07/25/24 Unknown trazodone 50 mg tablet 50 mg PO .qhs #30 tabs 07/22/24 07/25/24 Unknown calcium acetate 667 mg tablet 1,334 mg PO .with meals 07/23/24 07/25/24 Unknown olanzapine 2.5 mg tablet 2.5 mg PO DIRECTED 07/25/24 07/25/24 Unknown ondansetron 8 mg disintegrating 8 mg PO DIRECTED PRN n/v 07/25/24 07/25/24 U nknown tablet prochlorperazine maleate 10 mg 10 mg PO DIRECTED PRN n/v 07/25/24 07/25/24 Unknown tablet Active Medications Generic Name Dose Route Start Last Admin Trade Name Freq PRN Reason Stop Dose Admin Acetaminophen 650 mg 07/25/24 20:32 07/28/24 00:54 Acetaminophen 325 Mg Tab PO 08/24/24 20:31 650 mg Q4H PRN Administration Fever/Mild Pain (Pain 1-5) Allopurinol 300 mg 07/26/24 09:00 07/29/24 09:10 Allopurinol 300 Mg Tab PO 08/25/24 08:59 300 mg DAILY IAM Administration Amlodipine Besylate 5 mg 07/26/24 11:15 07/29/24 09:56 Amlodipine Besylate 5 Mg Tab PO 08/25/24 11:14 5 mg QAM IAM Administration Calamine/Phenol 1 appln 07/26/24 08:33 07/26/24 11:59 Menthol-Zinc Oxide 360 Appln/120 Gm Tube EXT 08/25/24 08:59 1 appln QID PRN Administration skin protection Calcium Acetate 1,334 mg 07/25/24 21:00 07/29/24 12:27 Calcium Acetate 667 Mg Cap/Tab PO 08/24/24 20:59 Not Given TIDM IAM Carvedilol 25 mg 07/25/24 21:00 07/29/24 09:56 Carvedilol 25 Mg Tab PO 08/24/24 20:59 25 mg BID IAM Administration Finasteride 5 mg 07/26/24 09:00 07/29/24 09:13 Finasteride 5 Mg Tab PO 08/25/24 08:59 5 mg DAILY IAM Administration Guaifenesin 600 mg 07/25/24 21:00 07/29/24 09:11 Guaifenesin 600 Mg Tabcr PO 08/24/24 20:59 600 mg BID IAM Administration Melatonin 3 mg 07/25/24 21:00 07/28/24 20:04 Melatonin 3 Mg Tab PO 08/24/24 20:59 3 mg HS IAM Administration Oxycodone HCl 5 mg 07/25/24 20:32 07/28/24 20:10 Oxycodone Hcl Ir 5 Mg Tab (Immediate Release) PO 08/08/24 20:31 5 mg Q6H PRN Administration Mod/severe Pain (6-10) on NRS Rosuvastatin Calcium 10 mg 07/25/24 21:00 07/28/24 20:06 Rosuvastatin Calcium 10 Mg Tab PO 08/24/24 20:59 10 mg QPM IAM Administration Sildenafil Citrate 40 mg 07/27/24 09:00 07/29/24 09:10 Sildenafil Citrate 20 Mg Tablet PO 08/26/24 08:59 40 mg MoWeFr@[id number] IAM Administration Trazodone HCl 50 mg 07/25/24 21:00 07/28/24 20:06 Trazodone Hcl 50 Mg Tab PO 08/24/24 20:59 50 mg HS IAM Administration Umeclidinium House 1 puffs 07/26/24 09:00 07/29/24 09:11 Umeclidinium House 62.5mcg/Blister 7 Puffs/Inhaler INH 08/25/24 08:59 1 puffs DAILY IAM Administration
[2024-07-29] MEDS: ADVANCED PROBIOTIC 625 MG CAPSULE PO SCH (16:23)
[2024-07-29] MEDS: MEROPENEM 500 MG in SYRINGE 0 ML IV SCH (16:23)
[2024-07-29] MEDS: DIPHENOXYLATE/ATROPINE 2.5/0.025MG TAB PO PRN (16:49)
[2024-07-29] MEDS: HEPARIN SOD 5,000 UNIT/0.5 ML VIAL SQ SCH (21:29)
[2024-07-30 07:06] LABS: Hematocrit (blood only) 29.3 % (42.0-52.0); Hemoglobin 9.4 g/dl (14.0-18.0); Mean Corpuscular Hemoglobin 29.8 pg (25.0-34.0); Mean Corpuscular Hgb Conc 32.1 g/dL (32.0-36.0); Mean Platelet Volume 11.1 fL (9.4-12.4); Nucleated RBC # (auto) 0.24 K/uL (0.00-0.12); Nucleated RBC % (auto) 0.7 %; Platelet Count 89 K/uL (130-400); RDW Coefficient of Variation 15.7 % (11.5-14.5); RDW Standard Deviation 52.2 fL (36.4-46.3); Red Blood Count 3.15 M/uL (4.70-6.10); White Blood Count 33.36 K/ul (4.8-10.8)
[2024-07-30 07:10] LABS: BUN Creatinine Ratio 9.7 (10-20); Calcium 8.4 mg/dl (8.6-10.3); Creatinine Clr Calc Pharmacy 15.4 ml/min; Potassium 3.7 mmol/L (3.5-5.1)
--- NOTE | 2024-07-30 08:37 | Nephrology Progress Note ---
Date of Service July 30, 2024 Assessment & Plan (1) Acute renal failure: Plan: * AVE due to TLS * No evidence of recovery at this time. Creatinine remains elevated in between dialysis treatments * Vascular surgery plans new IJ TCC to be placed in am * Will provide HD following new IJ TCC insertion (2) Chronic Kidney Disease: Plan: * CKD stage G3a/A3 (moderate impairment). Baseline Cr 1.5 w/ EGFR 48 cc/minute. Renal impairment has been attributed to DKD, hypertensive nephrosclerosis (3) Neutropenic fever: Plan: * Resolved * GCSF administered (4) Sepsis: Plan: * Pseudomonas sepsis. Possible pulmonary, urinary or catheter related source * On piperacillin/tazobactam therapy * Afebrile > 48 hours, BP remains acceptable * Blood cx from catheter 07/27/24 was negative (5) Tumor lysis syndrome: Plan: * Has received rasburicase * 07/20/2024 uric acid 3.0. Dialysis is also helping to keep this within acceptable limits (6) Small cell lung cancer: Plan: * Chemotherapy as per oncology * Poor prognosis. Consider consultation w/ palliative care to discuss GOC/expectations (7) Pneumonia: Admission and Anticipated Discharge Date Admission Date: July 25, 2024 Subjective Mr. Arcos was evaluated in his hospital room this morning. He denied fever, dyspnea, productive cough, N/V/D. R IJ TCC was removed yesterday. Review of Systems Constitutional: no fever Eyes: no problem reported Ear, Nose, Mouth, Throat: no problem reported Respiratory: no cough and no dyspnea Cardiovascular: no chest pain Gastrointestinal: no nausea, no vomiting and no diarrhea/loose stools Genitourinary: no dysuria Integumentary: no rash Physical Exam Constitutional: no acute distress Eyes: PERRL, conjunctivae normal, anicteric sclerae ENMT: external ear and nose normal, oropharynx normal Neck: trachea midline, no thyromegaly Respiratory: normal respiratory effort, lungs clear to auscultation Cardiovascular: RRR, no murmur, no edema Gastrointestinal (Abdomen): normal bowel sounds, soft, nontender, no hepatosplenomegaly Skin: no rashes, warm and dry Neurologic: Speech / Cognition: normal speech and normal cognition Results & Data Vital Signs (Past 12 Hours) Vital Signs Temp Pulse Pulse Resp BP Pulse Ox O2 Del Method 07/30/24 07:36 36.7 C 66 16 170/77 H 92 Room Air 07/29/24 23:20 36.5 C 70 16 155/69 H 93 Oxymask 07/29/24 23:05 Oxymask 07/29/24 21:40 Oxymask O2 Flow Rate 07/30/24 07:36 07/29/24 23:20 2 07/29/24 23:05 2 07/29/24 21:40 2 Laboratory Results Laboratory Results - last 24 hr 07/29/24 07/29/24 07/29/24 14:55 16:50 20:13 WBC RBC Hgb Hct MCV MCH MCHC RDW Std Deviation RDW Coeff of Iraida Plt Count MPV Absolute Nucleated RBC Nucleated RBC % (auto) Sodium Potassium Chloride Carbon Dioxide Anion Gap BUN Creatinine Est Cr Clr Drug Dosing eGFR BUN/Creatinine Ratio Glucose POC Glucose 81 109 H 147 H Calcium 07/30/24 07/30/24 06:24 07:15 WBC 33.36 H* RBC 3.15 L Hgb 9.4 L Hct 29.3 L MCV 93.0 MCH 29.8 MCHC 32.1 RDW Std Deviation 52.2 H RDW Coeff of Iraida 15.7 H Plt Count 89 L MPV 11.1 Absolute Nucleated RBC 0.24 H Nucleated RBC % (auto) 0.7 Sodium 138 Potassium 3.7 Chloride 104 Carbon Dioxide 28 Anion Gap 6 BUN 42 H Creatinine 4.32 H D Est Cr Clr Drug Dosing 15.4 eGFR 13.99 BUN/Creatinine Ratio 9.7 L Glucose 101 H POC Glucose 104 H Calcium 8.4 L PG Care Time/CCT Total # of Minutes Spent Total Time Spent with Patient: Total time spent is greater than 50% in coordination of care (as documented) at patient's floor/unit and/or counseling patient: Coding Level of Care Code 08607 SUB INP/OBS CARE 3/50MIN Diagnoses Acute renal failure N17.9 Chronic Kidney Disease N18.9 Neutropenic fever D70.9; R50.81 Sepsis A41.9 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
--- NOTE | 2024-07-30 14:02 | Infectious Disease Progress Nt ---
Date of Service July 30, 2024 Assessment & Plan (1) Metastasis to liver: (2) Diarrhea: (3) Sepsis: (4) Pancytopenia: (5) Neutropenic fever: (6) Small cell lung cancer: Plan This is a 69-year-old man with a past medical history of small cell lung cancer with metastasis on chemotherapy-carboplatin/etoposide, (cycle 1 day 1 on 07/16/2024, cycle 1 day 2 on 07/17/2024), tumor lysis syndrome, lung mass, end- stage renal disease on HD Saturday/Saturday/Saturday, COPD with emphysema, presents on 07/25/2024 with fever, lightheadedness, mild cough. He has an HD catheter in place (placed 07/14/2024): Last dialysis on 07/24/2024. He denies sweats, chills, pain at catheter site, headache, new rash, changeurine habits. He complains of diarrhea for several days His is at bedside. Daughter is on the phone and provide additional history. In the ED, temperature 37.8, pulse 76, RR 20, blood pressure 168/74, O2 sats 92% on room air. Labs WBC 0.60, ANC 0.09, hemoglobin 9, hematocrit 27.6, platelets 18, BUN 61, creatinine 6.27. Procalcitonin 99.90. Urinalysis is 0-5 WBC. Influenza, RSV, COVID testing negative. Complete viral respiratory panel negative. Blood cultures growing Pseudomonas aeruginosa in 2 out of 4 bottles (resistant to cefepime, ceftazidime, Zosyn) C diff testing negative. CXR shows new left basilar atelectasis or pneumonia and trace left pleural effusion. Stable left hilar mass. Increased interstitial markings typical of pneumonitis or vascular congestion. CTAP shows an enlarged liver with multiple ill-defined low-density mass lesions throughout the entire liver; Likely diffuse metastasis. No acute inflammatory changes are seen involving the bowel. No pneumoperitoneum or abscess. he was initiallily on Zosyn but changed to Meropenem 07/28. ID consulted for Pseudomonas bacteremia. Microbiology: Blood cultures 07/25 2/4 bottles positive for Pseudomonas aeruginosa P aerugino RX M.I.C. --- --------- Amikacin S <=16 Aztreonam R >16 Cefepime R >16 Ceftazidime R >16 Ciprofloxacin S <=0.25 Gentamicin S 4 Levofloxacin S <=0.5 Meropenem S <=1 Tobramycin S <=2 Pip/Tazo R >64 Sputum culture 07/25 few gram-negative rods, few GPC on Gram stain, normal moderate renny on culture. Blood culture 07/26 NGTD Blood culture 07/27 HD catheter line NGTD Antibiotics: Cefepime 07/25 Zosyn 07/26 - 07/27 Meropenem 07/28ongoing #Pancytopenia with neutropenia, neutropenia resolved 07/28 #MDR Pseudomonas Bacteremia #ESRD ON HD via R chest HD catheter #? Pneumonia # metastatic SCC of Lung on chemotherapy #B/L shoulder surgery with screws in place ( per his report) #Diarrhea, cdiff neg #Febrile at home, afebrile since admission. #Elevated procalcitonin Source of Pseudomonas bacteremia is not clear. Although he presents with cough there is no anupam infiltrates on lung imaging. His procalcitonin is markedly elevated, however this is hard to interpret in the setting of cancer and end-stage renal disease requiring dialysis. He denies urinary symptoms. UA results not consistent with infection. He has diarrhea but would not expect Pseudomonas to be the cause of this. His right chest HD catheter is without signs of infection on exam. He has no open wounds or rashes on exam. Given Pseudomonas bacteremia and no other clear source, line infection should be ruled out. In setting of MDR Pseudomonas bacteremia, immunocompromised state , initial neutropenia, line should be removed if infected. Line removal is warranted in bacteremia with organisms such as pseudomonas , staph aureus and sae given their virulence. These organisms have relatively high virulence and relatively low likelihood of treatment response of bacteremia with antibiotic therapy alone if potential source remains 07/29: WBC 24. Underwent HD line removal, BCx obtained 07/26 and 07/09o NGTD 07/30: WBC 33.6, Was neutropenic on 07/27 with anc 0.32. He received 3 doses of G-CSF (07/25-07/27). Leukocytosis, may be secondary to this. No clear evidence of new or worsening infection. C diff gene ( + 07/25 and 07/29), on 2l, afebrile. Recommendations -Continue Meropenem 1 gram Iv daily ( HD dosing) -Fu repeat BC 07/26 from Peripheral and BC 07/27 from HD line -Monitor WBC ( likely filgrastim effect), if continues to increase, would repeat BC. - Plan for 2 weeks of therapy post line removal if repeat BC remain sterile. ID will continue to follow. Karen Fuchs MD, MPH Infectious Disease [facility], ID Division Call [phone] with questions Admission and Anticipated Discharge Date Admission Date: July 25, 2024 Subjective This patient recommendation is based on a telemedicine consult request which was completed asynchronously through chart review and information provided by the primary physician. The patient was not seen or examined today. The evaluation is consultative in nature and all patient care and treatment decisions can either be accepted or rejected by the patient's primary hospital-based treating physician using their own independent medical judgment for their patient. Time Spent Reviewing Chart: 21 - 30 minutes BC from 07/26 and NGTD WBC up to 33.36 Cr -4.32 Scheduled for line placement tomorrow Results & Data Vital Signs (Past 12 Hours) Vital Signs Temp Pulse Resp BP Pulse Ox O2 Del Method O2 Flow Rate 07/30/24 10:35 Nasal Cannula 2 07/30/24 07:36 36.7 C 66 16 170/77 H 92 Room Air Laboratory Results Short CBC 07/30/24 Range/Units 06:24 WBC 33.36 H* (4.8-10.8) K/ul Hgb 9.4 L (14.0-18.0) g/dl Hct 29.3 L (42.0-52.0) % Plt Count 89 L (130-400) K/uL BMP 07/30/24 06:24 Sodium 138 Potassium 3.7 Chloride 104 Carbon Dioxide 28 BUN 42 H Creatinine 4.32 H D Glucose 101 H Calcium 8.4 L Diagnostic Findings Microbiology 07/27/24 13:59 Blood Aerobic Blood Culture - Preliminary No growth in Aerobic bottle after 48 hours. 07/27/24 13:59 Blood Anaerobic Blood Culture - Preliminary No growth in Anaerobic bottle after 48 hours. 07/26/24 11:33 Blood Aerobic Blood Culture - Preliminary No growth in Aerobic bottle after 48 hours. 07/26/24 11:33 Blood Anaerobic Blood Culture - Preliminary No growth in Anaerobic bottle after 48 hours. 07/26/24 11:34 Blood Aerobic Blood Culture - Preliminary No growth in Aerobic bottle after 48 hours. 07/26/24 11:34 Blood Anaerobic Blood Culture - Preliminary No growth in Anaerobic bottle after 48 hours. 07/25/24 15:51 Blood Aerobic Blood Culture - Preliminary Pseudomonas aeruginosa 07/25/24 15:51 Blood Anaerobic Blood Culture - Preliminary No growth in Anaerobic bottle after 48 hours. 07/25/24 16:17 Blood Aerobic Blood Culture - Preliminary Pseudomonas aeruginosa 07/25/24 16:17 Blood Anaerobic Blood Culture - Preliminary No growth in Anaerobic bottle after 48 hours. 07/25/24 21:06 Sputum, Expectorated Gram Stain - Final 07/25/24 21:06 Sputum, Expectorated Sputum Culture - Final Moderate normal renny. Medications Administered Home Medications Medication Instructions Recorded Confirmed Last Taken betamethasone dipropionate 0.05 % 1 applic topical BID PRN skin 08/03/21 07/25/24 Unknown topical cream irritation #45 grams carvedilol 25 mg tablet 25 mg PO BID #60 tabs 08/03/21 07/25/24 07/24/23 02:30 triamcinolone acetonide 0.1 % 1 applic topical BID PRN Dry 08/03/21 07/25/24 Unknown topical cream scaling areas #15 grams finasteride 5 mg tablet 5 mg PO DAILY #90 tabs 08/13/23 07/25/24 Unknown sildenafil (pulm.hypertension) 20 40 mg (2 x 20 mg) PO 3XWK #90 tabs 04/01/24 07/25/24 Unknown mg tablet (Revatio) lansoprazole 30 mg capsule,delayed 30 mg PO DAILY PRN heart burn 07/12/24 07/25/24 Unknown release allopurinol 300 mg tablet 300 mg PO DAILY #14 tabs 07/21/24 07/25/24 Unknown benzonatate 100 mg capsule 100 mg PO BID PRN cough #20 caps 07/21/24 07/25/24 Unknown blood-glucose meter (OneTouch #1 ea 07/21/24 07/23/24 Unknown Verio Flex Start kit) guaifenesin 600 mg tablet, 600 mg PO BID #10 tabs 07/21/24 07/25/24 Unknown extended release 12 hr (Mucinex) melatonin 3 mg capsule 3 mg PO HS #20 caps 07/21/24 07/25/24 Unknown ondansetron 4 mg disintegrating 4 mg PO BID PRN nausea and 07/21/24 07/25/24 Unknown tablet vomiting #14 tabs umeclidinium 62.5 mcg/actuation 1 inh inhalation DAILY #7 ea 07/21/24 07/25/24 Unknown blister powder for inhalation (Incruse Ellipta) blood-glucose meter (OneTouch #1 ea 07/22/24 07/23/24 Unknown Verio Flex Start kit) rosuvastatin 10 mg tablet 10 mg PO QPM #90 tabs 07/22/24 07/25/24 Unknown trazodone 50 mg tablet 50 mg PO .qhs #30 tabs 07/22/24 07/25/24 Unknown calcium acetate 667 mg tablet 1,334 mg PO .with meals 07/23/24 07/25/24 Unknown olanzapine 2.5 mg tablet 2.5 mg PO DIRECTED 07/25/24 07/25/24 Unknown ondansetron 8 mg disintegrating 8 mg PO DIRECTED PRN n/v 07/25/24 07/25/24 Unknown tablet prochlorperazine maleate 10 mg 10 mg PO DIRECTED PRN n/v 07/25/24 07/25/24 Unknown tablet Active Medications Generic Name Dose Route Start Last Admin Trade Name Freq PRN Reason Stop Dose Admin Acetaminophen 650 mg 07/25/24 20:32 07/28/24 00:54 Acetaminophen 325 Mg Tab PO 08/24/24 20:31 650 mg Q4H PRN Administration Fever/Mild Pain (Pain 1-5) Allopurinol 300 mg 07/26/24 09:00 07/30/24 07:57 Allopurinol 300 Mg Tab PO 08/25/24 08:59 300 mg DAILY IAM Administration Amlodipine Besylate 5 mg 07/26/24 11:15 07/30/24 07:58 Amlodipine Besylate 5 Mg Tab PO 08/25/24 11:14 5 mg QAM IAM Administration Calamine/Phenol 1 appln 07/26/24 08:33 07/26/24 11:59 Menthol-Zinc Oxide 360 Appln/120 Gm Tube EXT 08/25/24 08:59 1 appln QID PRN Administration skin protection Calcium Acetate 1,334 mg 07/25/24 21:00 07/30/24 11:31 Calcium Acetate 667 Mg Cap/Tab PO 08/24/24 20:59 1,334 mg TIDM IAM Administration Carvedilol 25 mg 07/25/24 21:00 07/30/24 07:57 Carvedilol 25 Mg Tab PO 08/24/24 20:59 25 mg BID IAM Administration Diphenoxylate HCl/Atropine 1 tab 07/29/24 14:23 07/29/24 16:49 Diphenoxylate/Atropine 2.5/0.025mg Tab PO 08/28/24 14:22 1 tab QID PRN Administration Diarrhea Finasteride 5 mg 07/26/24 09:00 07/30/24 07:58 Finasteride 5 Mg Tab PO 08/25/24 08:59 5 mg DAILY IAM Administration Guaifenesin 600 mg 07/25/24 21:00 07/30/24 07:57 Guaifenesin 600 Mg Tabcr PO 08/24/24 20:59 600 mg BID IAM Administration Heparin Sodium (Porcine) 5,000 units 07/29/24 21:00 07/30/24 11:30 Heparin Sod 5,000 Unit/0.5 Ml Vial SQ 08/28/24 20:59 5,000 units Q12 IAM Administration Meropenem 500 mg/ Syringe 10 mls @ 2 mls/min 07/29/24 16:00 07/29/24 16:23 IV 08/12/24 15:59 2 mls/min Q24H IAM Administration Protocol Lactobacillus Acidophilus 1,250 mg 07/29/24 14:30 07/30/24 07:58 Advanced Probiotic 625 Mg Capsule PO 08/28/24 14:29 1,250 mg DAILY IAM Administration Melatonin 3 mg 07/25/24 21:00 07/29/24 21:27 Melatonin 3 Mg Tab PO 08/24/24 20:59 3 mg HS IAM Administration Oxycodone HCl 5 mg 07/25/24 20:32 07/29/24 21:27 Oxycodone Hcl Ir 5 Mg Tab (Immediate Release) PO 08/08/24 20:31 5 mg Q6H PRN Administration Mod/severe Pain (6-10) on NRS Rosuvastatin Calcium 10 mg 07/25/24 21:00 07/29/24 21:31 Rosuvastatin Calcium 10 Mg Tab PO 08/24/24 20:59 10 mg QPM IAM Administration Sildenafil Citrate 40 mg 07/27/24 09:00 07/29/24 09:10 Sildenafil Citrate 20 Mg Tablet PO 08/26/24 08:59 40 mg MoWeFr@0900 IAM Administration Trazodone HCl 50 mg 07/25/24 21:00 07/29/24 21:31 Trazodone Hcl 50 Mg Tab PO 08/24/24 20:59 50 mg HS IAM Administration Umeclidinium [place] 1 puffs 07/26/24 09:00 07/30/24 07:58 Umeclidinium [place] 62.5mcg/Blister 7 Puffs/Inhaler INH 08/25/24 08:59 1 puffs DAILY IAM Administration
--- NOTE | 2024-07-30 18:33 | Hospitalist Progress Note ---
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 admitted with neutropenic fever and productive cough following chemotherapy # Neutropenic fever caused by MDR Pseudomonas bacteremia. Could be pneumonia, CLABSI, urinary source. # Possible pneumonia - L base on CXR, sputum culture normal renny, elevated procalcitonin, MRSA nares neg # Pancytopenia due to antineoplastic chemotherapy - counts recovering, monitor CBC -GCSF x 3 days. WBC 23-->30s overnight. leukocytosis likely related to GCSF, discussed with ID - repeat blood cultures if continuing to rise -continue meropenem started 07/28 (cefepime 07/25, pip-tazo 07/26-07/27). 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 Vascular surgery plans replacement 07/31 # Diarrhea - sounds like acute on chronic (or subacute) - probably effect of chemo, antibiotics and exacerbation of lactose intolerance. Rare but can be atypical paraneoplastic syndrome. CTA/P without acute abdominal infectious/inflammatory pathology --continue questran bid prn, imodium made him feel funny so changed to lomotil --C. diff negative, stool biofire negative --lactose free diet --gassy today without pain or tenderness, monitor # Primary SCLC, multiple liver metastases, possible L3 met vs Schmorl's node Oncology following Recently completed inpatient chemo complicated by tumor lysis syndrome, treated with hemodialysis for urate nephropathy which continues Saturday - Hgb Transfusion threshold 8.0 given multiple comorbidities, platelet threshold with minor bleeding 30,000. Will resume oncologic management on outpatient once recovered. # Troponin elevation Minimally elevated troponin without exponential rise. Likely due to myocardial demand ischemia and/or impaired clearance with renal disease EKG sinus without territorial ischemia # DM2 Glucose checks AC/at bedtime A1c well-controlled 6.3% Continue diet control. Chronic stable issues: Hypertension: Continue carvedilol VTE PPx: starting chemopx low dose SQ heparin hold off until after HD line replacement, explained rationale to patient and his , platelets now adequate and rising I updated his at bedside 07/29, 07/30 Admission and Anticipated Discharge Date Admission Date: July 25, 2024 Subjective no diarrhea but bloating after meals, no abdominal pain no shortness of breath Physical Exam 2 Physical Exam: PHYSICAL EXAMINATION Last 24h vital signs reviewed, see documentation in flowsheet General: awake sitting in bed HEENT: Normocephalic, atraumatic, pupils round and equal, sclerae anicteric, no conjunctival injection, moist mucus membranes Lungs: Normal respiratory effort. Clear to auscultation bilaterally. No RRW Heart: Regular rate and rhythm, no murmurs. No JVD. hemodialysis catheter has been removed Abdomen: Soft, nontender, mildly distended and tympanic. bowel tones remain increased in frequency Extremities: Warm, dry, well-perfused. 1+ bilateral pitting lower extremity edema. Neuro: Alert and oriented x 4, face symmetric, moves 4 extremities well Psych: Normal affect and behavior Results & Data Results & Data Vital Signs (Past 12 Hours) Vital Signs Temp Pulse Resp BP Pulse Ox O2 Del Method O2 Flow Rate 07/30/24 16:39 98.2 F 82 16 176/76 H 91 Room Air 07/30/24 15:25 Nasal Cannula 2 07/30/24 10:35 Nasal Cannula 2 07/30/24 07:36 98.1 F 66 16 170/77 H 92 Room Air Laboratory Results 07/30/24 06:24 07/30/24 06:24 PG Care Time/CCT Total # of Minutes Spent Total Time Spent with Patient: Total time spent is greater than 50% in coordination of care (as documented) at patient's floor/unit and/or counseling patient: Coding Level of Care Code 02596 SUB INP/OBS CARE 2/35MIN Diagnoses Neutropenic fever D70.9; R50.81 Pneumonia J18.9 Metastatic primary lung cancer C34.90 Acute renal failure N17.9 Pulmonary hypertension I27.20 Diarrhea R19.7 Pancytopenia D61.818
[2024-07-31] MEDS ORDERED: Nursing to Pharmacy Communication SCH (05:00)
[2024-07-31 06:39] LABS: Hematocrit (blood only) 27.4 % (42.0-52.0); Hemoglobin 8.7 g/dl (14.0-18.0); Mean Corpuscular Hemoglobin 29.6 pg (25.0-34.0); Mean Corpuscular Hgb Conc 31.8 g/dL (32.0-36.0); Mean Corpuscular Volume 93.2 fL (80.0-100.0); Mean Platelet Volume 12.2 fL (9.4-12.4); Nucleated RBC # (auto) 0.11 K/uL (0.00-0.12); Nucleated RBC % (auto) 0.4 %; Platelet Count 109 K/uL (130-400); RDW Coefficient of Variation 15.7 % (11.5-14.5); Red Blood Count 2.94 M/uL (4.70-6.10); White Blood Count 30.47 K/ul (4.8-10.8)
[2024-07-31 06:52] LABS: Calcium 8.2 mg/dl (8.6-10.3); Creatinine Clr Calc Pharmacy 12.4 ml/min; Potassium 3.8 mmol/L (3.5-5.1)
--- NOTE | 2024-07-31 08:44 | Nephrology Progress Note ---
Date of Service July 31, 2024 Assessment & Plan (1) Acute renal failure: Plan: * AVE due to TLS * No evidence of recovery at this time. Creatinine remains elevated in between dialysis treatments * Vascular surgery plans new IJ TCC to be placed this morning * Will provide HD following new IJ TCC insertion. Orders have been entered into EMR. HD quality control checker RN has been notified. (2) Chronic Kidney Disease: Plan: * CKD stage G3a/A3 (moderate impairment). Baseline Cr 1.5 w/ EGFR 48 cc/minute. Renal impairment has been attributed to DKD, hypertensive nephrosclerosis (3) Neutropenic fever: Plan: * Resolved * GCSF administered (4) Sepsis: Plan: * Pseudomonas sepsis. Possible pulmonary, urinary or catheter related source * On piperacillin/tazobactam therapy * Afebrile > 48 hours, BP remains acceptable * Blood cx from catheter 07/27/24 was negative (5) Tumor lysis syndrome: Plan: * Has received rasburicase * 07/20/2024 uric acid 3.0. Dialysis is also helping to keep this within acceptable limits (6) Small cell lung cancer: Plan: * Chemotherapy as per oncology * Poor prognosis. Consider consultation w/ palliative care to discuss GOC/expectations (7) Pneumonia: Admission and Anticipated Discharge Date Admission Date: July 25, 2024 Subjective Mr. Arcos was evaluated in his hospital room this morning. He denied fever, dyspnea, productive cough, N/V/D. He is awaiting surgical placement of new IJ TCC this morning. Review of Systems Constitutional: no fever Eyes: no problem reported Ear, Nose, Mouth, Throat: no problem reported Respiratory: no cough and no dyspnea Cardiovascular: no chest pain Gastrointestinal: no nausea, no vomiting and no diarrhea/loose stools Genitourinary: no dysuria Integumentary: no rash Physical Exam Constitutional: no acute distress Eyes: PERRL, conjunctivae normal, anicteric sclerae ENMT: external ear and nose normal, oropharynx normal Neck: trachea midline, no thyromegaly Respiratory: normal respiratory effort, lungs clear to auscultation Cardiovascular: RRR, no murmur, no edema Gastrointestinal (Abdomen): normal bowel sounds, soft, nontender, no hepatosplenomegaly Skin: no rashes, warm and dry Neurologic: Speech / Cognition: normal speech and normal cognition Results & Data Vital Signs (Past 12 Hours) Vital Signs Temp Pulse Resp BP Pulse Ox O2 Del Method 07/31/24 07:42 36.2 C L 78 16 177/80 H 92 Room Air Laboratory Results Laboratory Results - last 24 hr 07/30/24 07/30/24 07/30/24 11:21 16:32 20:40 WBC RBC Hgb Hct MCV MCH MCHC RDW Std Deviation RDW Coeff of Iraida Plt Count MPV Absolute Nucleated RBC Nucleated RBC % (auto) Sodium Potassium Chloride Carbon Dioxide Anion Gap BUN Creatinine Est Cr Clr Drug Dosing eGFR BUN/Creatinine Ratio Glucose POC Glucose 158 H 121 H 149 H Calcium 07/31/24 07/31/24 07/31/24 00:02 05:59 06:01 WBC 30.47 H* RBC 2.94 L Hgb 8.7 L Hct 27.4 L MCV 93.2 MCH 29.6 MCHC 31.8 L RDW Std Deviation 52.0 H RDW Coeff of Iraida 15.7 H Plt Count 109 L MPV 12.2 Absolute Nucleated RBC 0.11 Nucleated RBC % (auto) 0.4 Sodium 139 Potassium 3.8 Chloride 105 Carbon Dioxide 28 Anion Gap 6 BUN 59 H Creatinine 5.38 H* D Est Cr Clr Drug Dosing 12.4 eGFR 10.75 BUN/Creatinine Ratio 11.0 Glucose 99 POC Glucose 115 H 105 H Calcium 8.2 L PG Care Time/CCT Total # of Minutes Spent Total Time Spent with Patient: Total time spent is greater than 50% in coordination of care (as documented) at patient's floor/unit and/or counseling patient: Coding Level of Care Code 29900 SUB INP/OBS CARE 3/50MIN Diagnoses Acute renal failure N17.9 Chronic Kidney Disease N18.9 Neutropenic fever D70.9; R50.81 Sepsis A41.9 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
--- NOTE | 2024-07-31 09:45 | History & Physical Bridge Note ---
Date of Service July 31, 2024 History & Physical Bridge Note Patient for permcath placement today. I have discussed the risks options and benefits of the procedure with the patient. The patient understands the risks options and benefits and agrees to the procedure. I have examined the patient, reviewed the History & Physical and in the interval since the performance of the History & Physical I have noted the following changes of clinical significance: no changes noted
[2024-07-31] MEDS: fentaNYL citrate PF 100 MCG/2 ML VIAL ONE (10:30)
[2024-07-31] MEDS: MIDAZOLAM HCL 1 MG/ML 2ML VIAL ONE (10:30)
[2024-07-31] MEDS: LIDOCAINE 1% LOCAL 20 ML VIAL ONE ×2 (10:36)
[2024-07-31] MEDS: HEPARIN SOD (PORCINE) 5,000 UNITS/ML VIAL ONE (10:37)
--- NOTE | 2024-07-31 10:43 | Pre Anesthesia Assessment ---
Date of Service July 31, 2024 Pre Sedation Assessment Vital Signs Temp Pulse Pulse Pulse Pulse Resp BP 07/31/24 10:40 85 28 H 132/62 07/31/24 10:35 74 21 163/94 H 07/31/24 10:30 98 H 27 H 142/81 H 07/31/24 10:21 72 21 150/79 H 07/31/24 09:02 36.9 C 78 20 149/75 H 07/31/24 07:42 36.2 C L 78 16 177/80 H 07/31/24 07:40 07/30/24 20:10 07/30/24 19:28 37.1 C 80 16 163/71 H 07/30/24 16:39 36.8 C 82 16 176/76 H 07/30/24 15:25 Pulse Ox O2 Del Method O2 Flow Rate 07/31/24 10:40 98 Oxymask 2 07/31/24 10:35 100 Oxymask 2 07/31/24 10:30 99 Oxymask 2 07/31/24 10:21 95 Oxymask 2 07/31/24 09:02 92 Room Air 07/31/24 07:42 92 Room Air 07/31/24 07:40 Room Air 07/30/24 20:10 Oxymask 2 07/30/24 19:28 93 Nasal Cannula 2 07/30/24 16:39 91 Room Air 07/30/24 15:25 Nasal Cannula 2 Cardiovascular RRR, no murmur, no edema Respiratory normal respiratory effort, lungs clear to auscultation Pre-Sedation Airway Assessment Smoking Status: Former smoker Hx Sleep Apnea: No Short, Thick Neck: No Thyromental Distance: > or= 3.5 Finger Breadths Oral Cavity: + WNL Mallampati Class: II ASA: ASA4 NPO Status Date of Last Intake of Fluids: 07/30/24 Time of Last Intake of Fluids: 23:00 Date of Last Intake of Solid Food: 07/30/24 Time of Last Intake of Solid Foods: 19:30 Procedure Planning Contraindications for Sedation: none Current Medications Reviewed: Yes Notes The planned sedation has been discussed with the patient. Informed Consent was obtained. I have identified the patient, determined the appropriateness of sedation and have assessed the patient immediately prior to the procedure. All medicine(s) and interventions are by my order.
--- NOTE | 2024-07-31 10:50 | Operative Report ---
Post Operative Report Pre & Post Diagnosis Operation Date: 07/31/24 10:20 Pre-Op Diagnosis: End Stage Renal Disease Post-Op Diagnosis: End Stage Renal Disease I identified the patient and participated in the time-out.: Yes Procedure Operation Date: 07/31/24 10:20 Actual Procedures p Perm Catheter Placement,Right Internal Jugular Approach,Ultrasound Localiztion of Right Internal Jugular Vein,Fluoroscopy for Positioning,Moderate Sedation [id number](Right) - Riki Gallegos MD Surgeon Riki Gallegos MD Screener Operator none Estimated Blood Loss 5 Findings Consistent with Post-Op Diagnosis Specimens None Anesthesia Type RN Sedation Complications none Disposition Accompanied Patient To Recovery: No Disposition: Recovery Room Indications This is a 69-year-old gentleman with a PermCath removed secondary to infection. He is now here for a new PermCath. His blood cultures have been negative. I have discussed the risks options and benefits of the procedure with the patient. The patient understands the risks options and benefits and agrees to the procedure. Description of Procedure Patient was taken to the angio suite and placed in the supine position. The right side of the neck and chest wall were prepped and draped in a sterile manner. The patient was identified and a timeout performed. Local anesthesia was then administered to the appropriate areas of the neck and chest wall. Ultrasound was then used to locate the right internal jugular vein. The vein compressed easily, had no filing defects, and was patent. The vein was then punctured under direct ultrasound imaging. A guidewire was then passed centrally under fluoroscopic imaging. A stab wound was then made in the anterior chest wall and a 19 cm permcath was passed from the stab wound on the chest wall to the puncture site on the neck. The puncture site was then dilated till the 14Fr peel away sheath was inserted. The permcath was then inserted through the sheath to a central position in the distal superior vena cava. The peel away sheath was then removed. The catheter was then sutured in place using nylon sutures. The puncture was then closed using a 4-0 Vicryl subcuticular suture. Dermabond was used for a dressing on the puncture site. Both ports aspirated and flushed easily and were then packed with heparin. A sterile dressing was applied to the catheter. The patient left the operation room in satisfactory condition and tolerated the procedure well. All needle and sponge counts were correct at the end of the procedure. I attest to the content of the Intraoperative Record and any orders documented therein. Any exceptions are noted below.
--- NOTE | 2024-07-31 10:51 | Post Anesthesia Assessment ---
Date of Service July 31, 2024 Post Sedation Assessment Vital Signs Temp Pulse Pulse Pulse Pulse Resp BP 07/31/24 10:49 73 25 H 120/66 07/31/24 10:44 71 29 H 132/62 07/31/24 10:40 85 28 H 132/62 07/31/24 10:35 74 21 163/94 H 07/31/24 10:30 98 H 27 H 142/81 H 07/31/24 10:21 72 21 150/79 H 07/31/24 09:02 36.9 C 78 20 149/75 H 07/31/24 07:42 36.2 C L 78 16 177/80 H 07/31/24 07:40 07/30/24 20:10 07/30/24 19:28 37.1 C 80 16 163/71 H 07/30/24 16:39 36.8 C 82 16 176/76 H 07/30/24 15:25 Pulse Ox O2 Del Method O2 Flow Rate 07/31/24 10:49 97 Oxymask 2 07/31/24 10:44 98 Oxymask 2 07/31/24 10:40 98 Oxymask 2 07/31/24 10:35 100 Oxymask 2 07/31/24 10:30 99 Oxymask 2 07/31/24 10:21 95 Oxymask 2 07/31/24 09:02 92 Room Air 07/31/24 07:42 92 Room Air 07/31/24 07:40 Room Air 07/30/24 20:10 Oxymask 2 07/30/24 19:28 93 Nasal Cannula 2 07/30/24 16:39 91 Room Air 07/30/24 15:25 Nasal Cannula 2 Recovery Score Activity: Moves 4 extremities Respiration: Deep Breath/Cough Circulation: +/-20% PreAnes Value Consciousness: Fully Awake Oxygen Saturation: > 92% On Room Air Post Anesthesia Score: 10 Discharge Sedation Level of Care: Fast Track Phase II Post Sedation Plan On clinical assessment, the patient appears to have tolerated the sedation without complications. Patient is recovering as anticipated. Patient will continue to be monitored by nursing and may be discharged when sedation discharge criteria are met per below protocol. Upon Completions of procedure up to 15 minutes continue every 5 minute vital signs and the P.A.R. score; then discharge to a Phase I or Fast Track to Phase II per the following guidelines: * Discharge Patient to appropriate Phase II area if PAR is 8 or greater or return to pre- procedure baseline. The post - procedure orders will be as directed. * If PAR score is less than 8 or not return to pre-procedure baseline then patient will follow Phase I monitoring till PAR is reached for Phase II. The Phase I may be done in procedure room or may call to secure a Phase I area. * If naloxone or flumazenil are used for reversal, hold in Phase I for continued monitoring from when last reversal dose was given for a minimum of 60 minutes or longer pending the nurse and/or physician discretion of patient condition before discharge to Phase II. Please call the Sedation Physician to re-evaluate and complete post-note for discharge to Phase II area. Do NOT discharge from procedure sedation or Phase 1 until post- sedation evaluation note is complete by procedure /sedation MD Sedation Discharge Instructions to be given to the patient at discharge to home.
--- NOTE | 2024-07-31 16:09 | Infectious Disease Progress Nt ---
Date of Service July 31, 2024 Assessment & Plan (1) Metastasis to liver: (2) Diarrhea: (3) Sepsis: (4) Pancytopenia: (5) Neutropenic fever: (6) Small cell lung cancer: Plan This is a 69-year-old man with a past medical history of small cell lung cancer with metastasis on chemotherapy-carboplatin/etoposide, (cycle 1 day 1 on 07/16/2024, cycle 1 day 2 on 07/17/2024), tumor lysis syndrome, lung mass, end- stage renal disease on HD Saturday/Saturday/Saturday, COPD with emphysema, presents on 07/25/2024 with fever, lightheadedness, mild cough. He has an HD catheter in place (placed 07/14/2024): Last dialysis on 07/24/2024. He denies sweats, chills, pain at catheter site, abdomimin pain, back , joint pain, headache, new rash, change urine habits. He complains of diarrhea for several days ( ? weeks per ) . Denies sick contacts. His is at bedside. Daughter is on the phone and provides additional history. In the ED, temperature 37.8, pulse 76, RR 20, blood pressure 168/74, O2 sats 92% on room air. Labs WBC 0.60, ANC 0.09, hemoglobin 9, hematocrit 27.6, platelets 18, BUN 61, creatinine 6.27. Procalcitonin 99.90. Urinalysis is 0-5 WBC. Influenza, RSV, COVID testing negative. Complete viral respiratory panel negative. Blood cultures growing Pseudomonas aeruginosa in 2 out of 4 bottles (resistant to cefepime, ceftazidime, Zosyn) C diff testing negative. CXR shows new left basilar atelectasis or pneumonia and trace left pleural effusion. Stable left hilar mass. Increased interstitial markings typical of pneumonitis or vascular congestion. CTAP shows an enlarged liver with multiple ill-defined low-density mass lesions throughout the entire liver; Likely diffuse metastasis. No acute inflammatory changes are seen involving the bowel. No pneumoperitoneum or abscess. he was initially on Zosyn but changed to Meropenem 07/28. ID consulted for Pseudomonas bacteremia. Microbiology: Blood cultures 07/25 2/4 bottles positive for Pseudomonas aeruginosa P aerugino RX M.I.C. --- --------- Amikacin S <=16 Aztreonam R >16 Cefepime R >16 Ceftazidime R >16 Ciprofloxacin S <=0.25 Gentamicin S 4 Levofloxacin S <=0.5 Meropenem S <=1 Tobramycin S <=2 Pip/Tazo R >64 Sputum culture 07/25 few gram-negative rods, few GPC on Gram stain, normal moderate renny on culture. Blood culture 07/26 NGTD Blood culture 07/27 HD catheter line NGTD CDiff gene 07/25 ad 07/27 negative Prior MICRO GI/Stool PCR panel 07/13/24 negative Antibiotics: Cefepime 07/25 Zosyn 07/26 - 07/27 Meropenem 07/28ongoing #Pancytopenia with neutropenia, neutropenia resolved 07/28 #MDR Pseudomonas Bacteremia #ESRD ON HD via R chest HD catheter #? Pneumonia # Metastatic SCC of Lung on chemotherapy #B/L shoulder surgery with screws in place ( per his report) #Diarrhea, cdiff neg* 2 this admission, norovirus neg 07/13 #Febrile at home, afebrile since admission. #Elevated procalcitonin Source of Pseudomonas bacteremia is not clear. Although he presents with cough there is no anupam infiltrates on lung imaging. His procalcitonin is markedly elevated, however this is hard to interpret in the setting of cancer and end-stage renal disease requiring dialysis. He denies urinary symptoms. UA results not consistent with infection. He has diarrhea but would not expect Pseudomonas to be the cause of this. Diarrhea ongoing for several weeks. GI panel negative 07/13. CDiff neg twice this admit. His right chest HD catheter is without signs of infection on exam. He has no open wounds or rashes on exam. NO spinal tenderness or joint pain. Given Pseudomonas bacteremia and no other clear source, line infection should be ruled out. In setting of MDR Pseudomonas bacteremia, immunocompromised state , initial neutropenia, line should be removed if infected. Line removal is warranted in bacteremia with organisms such as pseudomonas , staph aureus and sae given their virulence. These organisms have relatively high virulence and relatively low likelihood of treatment response of bacteremia with antibiotic therapy alone if potential source remains 07/29: WBC 24. Underwent HD line removal, BCx obtained 07/26 and 07/27 NGTD 07/30: WBC 33.6, Was neutropenic on 07/27 with anc 0.32. He received 3 doses of G-CSF (07/25-07/27). Leukocytosis, may be secondary to this. No clear evidence of new or worsening infection. C diff gene ( + 07/25 and 07/29), on 2l, afebrile. 07/31: WBC 30.47, creatinine 5.38. New HD catheter placed today. Recommendations -Continue Meropenem 1 gram Iv daily ( HD dosing). Anticipate 2 weeks of antibiotics post HD line removal. -Fu repeat BC 07/26 from Peripheral and BC 07/27 from HD line -Monitor WBC ( likely filgrastim effect), if continues to increase, would repeat BC. -Ordered Stool GI panel pcr panel for am -Check baseline TTE, none this admission . Although Pseudomonas not usually associated with endocarditis and BC cleared quickly. -Weekly cbc with diff, bmp, lft on IV abx -Check BC one week post completion of IV abx -Set Up care with local ID Plan for 2 weeks of therapy post line removal if repeat BC remain sterile ( 07/29-08/12). ID will sign off. Please call with questions or if TTE positive or repeat BC + . Karen Fuchs MD, MPH Infectious Disease [facility], ID Division Call [phone] with questions Admission and Anticipated Discharge Date Admission Date: July 25, 2024 Subjective This patient recommendation is based on a telemedicine consult request which was completed asynchronously through chart review and information provided by the primary physician. The patient was not seen or examined today. The evaluation is consultative in nature and all patient care and treatment decisions can either be accepted or rejected by the patient's primary hospital-based treating physician using their own independent medical judgment for their patient. Time Spent Reviewing Chart: 21 - 30 minutes WBC 30.47, creatinine 5.38. New HD catheter placed today. Results & Data Vital Signs (Past 12 Hours) Vital Signs Temp Pulse Pulse Pulse Pulse Resp BP 07/31/24 14:43 36.4 C L 71 20 07/31/24 14:25 36.8 C 65 07/31/24 14:00 63 142/70 H 07/31/24 13:30 69 138/60 07/31/24 13:00 74 131/78 07/31/24 12:30 73 144/81 H 07/31/24 12:15 72 140/63 07/31/24 12:00 72 135/71 07/31/24 11:45 72 109/71 07/31/24 11:30 71 122/68 07/31/24 11:08 72 144/77 H 07/31/24 10:58 36.6 C 79 07/31/24 10:49 73 25 H 07/31/24 10:44 71 29 H 07/31/24 10:40 85 28 H 07/31/24 10:35 74 21 07/31/24 10:30 98 H 27 H 07/31/24 10:21 72 21 07/31/24 09:02 36.9 C 78 20 07/31/24 07:42 36.2 C L 78 16 07/31/24 07:40 BP Pulse Ox O2 Del Method O2 Flow Rate 07/31/24 14:43 154/64 H 93 Room Air 07/31/24 14:25 151/70 H 07/31/24 14:00 07/31/24 13:30 07/31/24 13:00 07/31/24 12:30 07/31/24 12:15 07/31/24 12:00 07/31/24 11:45 07/31/24 11:30 07/31/24 11:08 07/31/24 10:58 07/31/24 10:49 120/66 97 Oxymask 2 07/31/24 10:44 132/62 98 Oxymask 2 07/31/24 10:40 132/62 98 Oxymask 2 07/31/24 10:35 163/94 H 100 Oxymask 2 07/31/24 10:30 142/81 H 99 Oxymask 2 07/31/24 10:21 150/79 H 95 Oxymask 2 07/31/24 09:02 149/75 H 92 Room Air 07/31/24 07:42 177/80 H 92 Room Air 07/31/24 07:40 Room Air Laboratory Results Short CBC 07/31/24 Range/Units 05:59 WBC 30.47 H* (4.8-10.8) K/ul Hgb 8.7 L (14.0-18.0) g/dl Hct 27.4 L (42.0-52.0) % Plt Count 109 L (130-400) K/uL BMP 07/31/24 05:59 Sodium 139 Potassium 3.8 Chloride 105 Carbon Dioxide 28 BUN 59 H Creatinine 5.38 H* D Glucose 99 Calcium 8.2 L Diagnostic Findings Microbiology 07/26/24 11:33 Blood Aerobic Blood Culture - Final No growth in Aerobic bottle after 5 days. 07/26/24 11:33 Blood Anaerobic Blood Culture - Final No growth in Anaerobic bottle after 5 days. 07/26/24 11:34 Blood Aerobic Blood Culture - Final No growth in Aerobic bottle after 5 days. 07/26/24 11:34 Blood Anaerobic Blood Culture - Final No growth in Anaerobic bottle after 5 days. 07/29/24 15:00 Catheter Tip, Perm Cathether Catheter Tip Culture - Prelimin [place] No growth to date. 07/25/24 16:17 Blood Aerobic Blood Culture - Preliminary Pseudomonas aeruginosa 07/25/24 16:17 Blood Anaerobic Blood Culture - Final No growth in Anaerobic bottle after 5 days. 07/25/24 15:51 Blood Aerobic Blood Culture - Preliminary Pseudomonas aeruginosa 07/25/24 15:51 Blood Anaerobic Blood Culture - Final No growth in Anaerobic bottle after 5 days. 07/27/24 13:59 Blood Aerobic Blood Culture - Preliminary No growth in Aerobic bottle after 48 hours. 07/27/24 13:59 Blood Anaerobic Blood Culture - Preliminary No growth in Anaerobic bottle after 48 hours. 07/25/24 21:06 Sputum, Expectorated Gram Stain - Final 07/25/24 21:06 Sputum, Expectorated Sputum Culture - Final Moderate normal renny. Medications Administered Home Medications Medication Instructions Recorded Confirmed Last Taken betamethasone dipropionate 0.05 % 1 applic topical BID PRN skin 08/03/21 07/25/24 Unknown topical cream irritation #45 grams carvedilol 25 mg tablet 25 mg PO BID #60 tabs 08/03/21 07/25/24 07/24/23 02:30 triamcinolone acetonide 0.1 % 1 applic topical BID PRN Dry 08/03/21 07/25/24 Unknown topical cream scaling areas #15 grams finasteride 5 mg tablet 5 mg PO DAILY #90 tabs 08/13/23 07/25/24 Unknown sildenafil (pulm.hypertension) 20 40 mg (2 x 20 mg) PO 3XWK #90 tabs 04/01/24 07/25/24 Unknown mg tablet (Revatio) lansoprazole 30 mg capsule,delayed 30 mg PO DAILY PRN heart burn 07/12/24 07/25/24 Unknown release allopurinol 300 mg tablet 300 mg PO DAILY #14 tabs 07/21/24 07/25/24 Unknown benzonatate 100 mg capsule 100 mg PO BID PRN cough #20 caps 07/21/24 07/25/24 Unknown blood-glucose meter (OneTouch #1 ea 07/21/24 07/23/24 Unknown Verio Flex Start kit) guaifenesin 600 mg tablet, 600 mg PO BID #10 tabs 07/21/24 07/25/24 Unknown extended release 12 hr (Mucinex) melatonin 3 mg capsule 3 mg PO HS #20 caps 07/21/24 07/25/24 Unknown ondansetron 4 mg disintegrating 4 mg PO BID PRN nausea and 07/21/24 07/25/24 Unknown tablet vomiting #14 tabs umeclidinium 62.5 mcg/actuation 1 inh inhalation DAILY #7 ea 07/21/24 07/25/24 Unknown blister powder for inhalation (Incruse Ellipta) blood-glucose meter (OneTouch #1 ea 07/22/24 07/23/24 Unknown Verio Flex Start kit) rosuvastatin 10 mg tablet 10 mg PO QPM #90 tabs 07/22/24 07/25/24 Unknown trazodone 50 mg tablet 50 mg PO .qhs #30 tabs 07/22/24 07/25/24 Unknown calcium acetate 667 mg tablet 1,334 mg PO .with meals 07/23/24 07/25/24 Unknown olanzapine 2.5 mg tablet 2.5 mg PO DIRECTED 07/25/24 07/25/24 Unknown ondansetron 8 mg disintegrating 8 mg PO DIRECTED PRN n/v 07/25/24 07/25/24 Unknown tablet prochlorperazine maleate 10 mg 10 mg PO DIRECTED PRN n/v 07/25/24 07/25/24 Unknown tablet Active Medications Generic Name Dose Route Start Last Admin Trade Name Freq PRN Reason Stop Dose Admin Acetaminophen 650 mg 07/25/24 20:32 07/28/24 00:54 Acetaminophen 325 Mg Tab PO 08/24/24 20:31 650 mg Q4H PRN Administration Fever/Mild Pain (Pain 1-5) Allopurinol 300 mg 07/26/24 09:00 07/31/24 08:33 Allopurinol 300 Mg Tab PO 08/25/24 08:59 300 mg DAILY IAM Administration Amlodipine Besylate 5 mg 07/26/24 11:15 07/31/24 08:35 Amlodipine Besylate 5 Mg Tab PO 08/25/24 11:14 5 mg QAM IAM Administration Calamine/Phenol 1 appln 07/26/24 08:33 07/26/24 11:59 Menthol-Zinc Oxide 360 Appln/120 Gm Tube EXT 08/25/24 08:59 1 appln QID PRN Administration skin protection Calcium Acetate 1,334 mg 07/25/24 21:00 07/31/24 14:57 Calcium Acetate 667 Mg Cap/Tab PO 08/24/24 20:59 1,334 mg TIDM IAM Administration Carvedilol 25 mg 07/25/24 21:00 07/31/24 08:35 Carvedilol 25 Mg Tab PO 08/24/24 20:59 25 mg BID IAM Administration Diphenoxylate HCl/Atropine 1 tab 07/29/24 14:23 07/31/24 15:50 Diphenoxylate/Atropine 2.5/0.025mg Tab PO 08/28/24 14:22 1 tab QID PRN Administration Diarrhea Finasteride 5 mg 07/26/24 09:00 07/31/24 08:34 Finasteride 5 Mg Tab PO 08/25/24 08:59 5 mg DAILY IAM Administration Guaifenesin 600 mg 07/25/24 21:00 07/31/24 08:34 Guaifenesin 600 Mg Tabcr PO 08/24/24 20:59 600 mg BID IAM Administration Heparin Sodium (Porcine) 5,000 units 07/29/24 21:00 07/30/24 11:30 Heparin Sod 5,000 Unit/0.5 Ml Vial SQ 08/28/24 20:59 5,000 units Q12 IAM Administration Lactobacillus Acidophilus 1,250 mg 07/29/24 14:30 07/31/24 08:34 Advanced Probiotic 625 Mg Capsule PO 08/28/24 14:29 1,250 mg DAILY IAM Administration Melatonin 3 mg 07/25/24 21:00 07/30/24 20:23 Melatonin 3 Mg Tab PO 08/24/24 20:59 3 mg HS IAM Administration Oxycodone HCl 5 mg 07/25/24 20:32 07/30/24 20:23 Oxycodone Hcl Ir 5 Mg Tab (Immediate Release) PO 08/08/24 20:31 5 mg Q6H PRN Administration Mod/severe Pain (6-10) on NRS Rosuvastatin Calcium 10 mg 07/25/24 21:00 07/30/24 20:23 Rosuvastatin Calcium 10 Mg Tab PO 08/24/24 20:59 10 mg QPM IAM Administration Sildenafil Citrate 40 mg 07/27/24 09:00 07/31/24 08:34 Sildenafil Citrate 20 Mg Tablet PO 08/26/24 08:59 40 mg MoWeFr@0900 IAM Administration Trazodone HCl 50 mg 07/25/24 21:00 07/30/24 20:23 Trazodone Hcl 50 Mg Tab PO 08/24/24 20:59 50 mg HS IAM Administration Umeclidinium [place] 1 puffs 07/26/24 09:00 07/31/24 08:48 Umeclidinium [place] 62.5mcg/Blister 7 Puffs/Inhaler INH 08/25/24 08:59 1 puffs DAILY IAM Administration
--- NOTE | 2024-07-31 16:24 | Hospitalist Progress Note ---
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 admitted with neutropenic fever and productive cough following chemotherapy # Neutropenic fever caused by MDR Pseudomonas bacteremia. Could be pneumonia, CLABSI, urinary source. # Possible pneumonia - L base on CXR, sputum culture normal renny, elevated procalcitonin, MRSA nares neg # Pancytopenia due to antineoplastic chemotherapy - counts recovering, monitor CBC -GCSF x 3 days. WBC 23-->33 now improved to 30. leukocytosis likely related to GCSF, discussed with ID - repeat blood cultures if continuing to rise -HD catheter removed 07/29, replaced by Dr. Gallegos 07/31 -continue meropenem started 07/28 (cefepime 07/25, pip-tazo 07/26-07/27). 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 Rare but can be atypical paraneoplastic syndrome. CTA/P without acute abdominal infectious/inflammatory pathology --continue questran bid prn, imodium made him feel funny so changed to lomotil which has been effective --C. diff negative, stool biofire negative --lactose free diet, probiotic (stop on discharge since will get chemo soon) --ongoing but significantly improved since admission # Primary SCLC, multiple liver metastases, possible L3 met vs Schmorl's node Oncology following - updated Dr. Werner Recently completed inpatient chemo complicated by tumor lysis syndrome, treated with hemodialysis for urate nephropathy which continues Saturday - Hgb Transfusion threshold 8.0 given multiple comorbidities, platelet threshold with minor bleeding 30,000. per oncologist will see him Saturday AM and decide at that time whether to start chemo cycle or delay # Troponin elevation Minimally elevated troponin without exponential rise. Likely due to myocardial demand ischemia and/or impaired clearance with renal disease EKG sinus without territorial ischemia # DM2 all BG checks have been normal, stop checks A1c well-controlled 6.3% Chronic stable issues: Hypertension: Continue carvedilol VTE PPx: starting chemopx low dose SQ heparin I updated his at bedside 07/31 Admission and Anticipated Discharge Date Admission Date: July 25, 2024 Subjective Got HD line replaced and HD session this AM. Diarrhea following dialysis. Overall diarrhea improved however and no abdominal pain or bloating today Physical Exam 2 Physical Exam: PHYSICAL EXAMINATION Last 24h vital signs reviewed, see documentation in flowsheet General: awake and alert HEENT: Normocephalic, atraumatic, pupils round and equal, sclerae anicteric, no conjunctival injection, moist mucus membranes Lungs: Normal respiratory effort. Clear to auscultation anteriorly. Some cough. No RRW Heart: Regular rate and rhythm, no murmurs. No JVD. hemodialysis catheter has been removed from R chest, new tunneled HD catheter in L chest, no bleeding observed Abdomen: Soft, nontender, nondistended, normal BT. Extremities: Warm, dry, well-perfused. 1+ bilateral pitting lower extremity edema - continues to improve. Neuro: Alert and oriented x 4, face symmetric, moves 4 extremities well Psych: Normal affect and behavior Results & Data Results & Data Vital Signs (Past 12 Hours) Vital Signs Temp Pulse Pulse Pulse Pulse Resp BP 07/31/24 14:43 97.5 F L 71 20 07/31/24 14:25 98.2 F 65 07/31/24 14:00 63 142/70 H 07/31/24 13:30 69 138/60 07/31/24 13:00 74 131/78 07/31/24 12:30 73 144/81 H 07/31/24 12:15 72 140/63 07/31/24 12:00 72 135/71 07/31/24 11:45 72 109/71 07/31/24 11:30 71 122/68 07/31/24 11:08 72 144/77 H 07/31/24 10:58 97.9 F 79 07/31/24 10:49 73 25 H 07/31/24 10:44 71 29 H 07/31/24 10:40 85 28 H 07/31/24 10:35 74 21 07/31/24 10:30 98 H 27 H 07/31/24 10:21 72 21 07/31/24 09:02 98.4 F 78 20 07/31/24 07:42 97.2 F L 78 16 07/31/24 07:40 BP Pulse Ox O2 Del Method O2 Flow Rate 07/31/24 14:43 154/64 H 93 Room Air 07/31/24 14:25 151/70 H 07/31/24 14:00 07/31/24 13:30 07/31/24 13:00 07/31/24 12:30 07/31/24 12:15 07/31/24 12:00 07/31/24 11:45 07/31/24 11:30 07/31/24 11:08 07/31/24 10:58 07/31/24 10:49 120/66 97 Oxymask 2 07/31/24 10:44 132/62 98 Oxymask 2 07/31/24 10:40 132/62 98 Oxymask 2 07/31/24 10:35 163/94 H 100 Oxymask 2 07/31/24 10:30 142/81 H 99 Oxymask 2 07/31/24 10:21 150/79 H 95 Oxymask 2 07/31/24 09:02 149/75 H 92 Room Air 07/31/24 07:42 177/80 H 92 Room Air 07/31/24 07:40 Room Air Laboratory Results 07/31/24 05:59 07/31/24 05:59 PG Care Time/CCT Total # of Minutes Spent Total Time Spent with Patient: Total time spent is greater than 50% in coordination of care (as documented) at patient's floor/unit and/or counseling patient: Coding Level of Care Code 28733 SUB INP/OBS CARE 3/50MIN Diagnoses Neutropenic fever D70.9; R50.81 Pneumonia J18.9 Metastatic primary lung cancer C34.90 Acute renal failure N17.9 Pulmonary hypertension I27.20 Diarrhea R19.7 Pancytopenia D61.818
[2024-07-31] MEDS: MEROPENEM 1,000 MG in SYRINGE 0 ML IV SCH (16:30)
[2024-08-01 07:03] LABS: Hematocrit (blood only) 28.6 % (42.0-52.0); Hemoglobin 9.4 g/dl (14.0-18.0); Mean Corpuscular Hemoglobin 30.5 pg (25.0-34.0); Mean Corpuscular Hgb Conc 32.9 g/dL (32.0-36.0); Mean Corpuscular Volume 92.9 fL (80.0-100.0); Mean Platelet Volume 12.4 fL (9.4-12.4); Nucleated RBC # (auto) 0.05 K/uL (0.00-0.12); Nucleated RBC % (auto) 0.2 %; Platelet Count 155 K/uL (130-400); RDW Coefficient of Variation 15.9 % (11.5-14.5); RDW Standard Deviation 51.8 fL (36.4-46.3); Red Blood Count 3.08 M/uL (4.70-6.10); White Blood Count 30.95 K/ul (4.8-10.8)
[2024-08-01 07:19] LABS: BUN Creatinine Ratio 10.3 (10-20); Calcium 8.5 mg/dl (8.6-10.3); Creatinine Clr Calc Pharmacy 14.9 ml/min; Potassium 4.2 mmol/L (3.5-5.1)
--- NOTE | 2024-08-01 11:57 | Nephrology Progress Note ---
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 Received rasburicase on 07/14/2024 but kidney function continued to worsen and he was started on dialysis during last hospitalization and also started on chemotherapy. He was admitted to the hospital this time with neutropenic fever and bacteremia with Pseudomonas. He had tunneled dialysis catheter removed on 07/29/2024 and had new dialysis catheter placed on 07/31/2024. Culture from catheter tip was negative but by the time it was done he was already on antibiotic. Had dialysis yesterday, currently volume status, electrolyte acceptable. Waiting for setting up at home antibiotic, on meropenem 1 g daily to be continued for 2 weeks from 07/29/2024. --Continue to monitor over the weekend and plan for next dialysis Saturday. -- Dose medication for eGFR less than 10 --Left nephrology precaution for vascular access in future -- Continue Nephrocaps, PhosLo with meals Admission and Anticipated Discharge Date Admission Date: July 25, 2024 Veronica Christine was seen and evaluated with family at bedside. Overall he is feeling better. Had dialysis yesterday. New tunneled catheter was placed on 07/31/2023. No active bleeding at the catheter site. Review of Systems Review of Systems: All systems reviewed & are unremarkable except as noted in Subjective Physical Exam Constitutional: WD/WN, vitals as above no acute distress Eyes: + anicteric sclerae Respiratory: Auscultation: + diminished lung sounds Cardiovascular: Rate/Rhythm: regular rate and regular rhythm Heart Sounds: normal S1 and normal S2 Extremities: no edema Gastrointestinal (Abdomen): Inspection/Auscultation: + abdomen distended Percussion/Palpation: + hepatomegaly; abdomen nontender Musculoskeletal: Extremities: extremities normal to inspection Skin: no rashes, warm and dry Neurologic: no focal motor deficits Psychiatric: Orientation: alert and oriented x 3 Affect: euthymic affect Results & Data Vital Signs (Past 12 Hours) Vital Signs Temp Pulse Resp BP Pulse Ox O2 Del Method 08/01/24 07:30 Room Air 08/01/24 07:14 36.6 C 74 16 172/81 H 93 Room Air PG Care Time/CCT Total # of Minutes Spent Total Time Spent with Patient: Total time spent is greater than 50% in coordination of care (as documented) at patient's floor/unit and/or counseling patient: Coding Level of Care Code 73347 SUB INP/OBS CARE 2/35MIN Diagnoses Tumor lysis syndrome E88.3 Pneumonia J18.9 Small cell lung cancer C34.90 Metastasis to liver C78.7 Diabetes E11.9 Hypertension I10 ESRD on hemodialysis N18.6; Z99.2
--- NOTE | 2024-08-01 18:10 | Hospitalist Progress Note ---
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 admitted with neutropenic fever and productive cough following chemotherapy. Found to have MDR pseudomonas bacteremia, ID consulted, treated with meropenem. Source unclear. Dialysis line removed, line holiday, tunnelled line replaced 07/31. After discussion with ID this am obtained TTE on 08/01, discussed with family services coordinator - anterior mitral valve vegetation, does not appear to compromise the valve function, mild MR. # MDR Pseudomonas endocarditis, bacteremia has cleared. Vegetation on anterior valve leaflet with preserved MV function # Neutropenic fever caused by the above. Could be pneumonia, CLABSI, urinary source, bowel source (acute on chronic diarrhea following chemo). # Possible pneumonia - L base on CXR, sputum culture normal renny, elevated procalcitonin, MRSA nares neg # Pancytopenia due to antineoplastic chemotherapy - counts recovering, monitor CBC -GCSF x 3 days. WBC 23-->33 now improved to 30. leukocytosis likely related to GCSF, discussed with ID - repeat blood cultures if continuing to rise -HD catheter removed 07/29, replaced by Dr. Gallegos 07/31 -continue meropenem started 07/28 (cefepime 07/25, pip-tazo 07/26-07/27). needs 6 weeks IV antibiotics after catheter removal 07/29 -repeat blood cultures 07/26 negative, 07/27 NGTD, cath tip culture negative. 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 Rare but can be atypical paraneoplastic syndrome. CTA/P without acute abdominal infectious/inflammatory pathology --continue questran bid prn, imodium made him feel funny so changed to lomotil which has been effective --C. diff negative, stool biofire negative --lactose free diet, probiotic (stop on discharge since will get chemo soon) --ongoing but significantly improved since admission # Primary SCLC, multiple liver metastases, possible L3 met vs Schmorl's node Oncology following - updated Dr. Werner 07/31, 08/01 Recently completed inpatient chemo, treated with hemodialysis for urate nephropathy which continues Saturday - Hgb Transfusion threshold 8.0 given multiple comorbidities, platelet threshold with minor bleeding 30,000. Dr. Werner perfers to continue chemo if stable on antibiotics, will discuss with ID # Troponin elevation Minimally elevated troponin without exponential rise. Likely due to myocardial demand ischemia and/or impaired clearance with renal disease EKG sinus without territorial ischemia # DM2 all BG checks have been normal, stop checks A1c well-controlled 6.3% Chronic stable issues: Hypertension: Continue carvedilol VTE PPx: chemopx low dose SQ heparin I updated his at bedside 07/31, and daughter 08/01 Admission and Anticipated Discharge Date Admission Date: July 25, 2024 Subjective I saw him after a walk. We had a long discussion with his family about the endocarditis Physical Exam 2 Physical Exam: PHYSICAL EXAMINATION Last 24h vital signs reviewed, see documentation in flowsheet General: awake and alert, seen walking in HW then sitting in bed HEENT: Normocephalic, atraumatic, pupils round and equal, sclerae anicteric, no conjunctival injection, moist mucus membranes Lungs: normal WOB Heart: hemodialysis catheter has been removed from R chest, new tunneled HD catheter in L chest, no bleeding observed Abdomen: nondistended Extremities: Warm, dry, well-perfused. minimal bilateral pitting lower extremity edema - continues to improve. Neuro: Alert and oriented x 4, face symmetric, moves 4 extremities well Psych: Normal affect and behavior Results & Data Results & Data Vital Signs (Past 12 Hours) Vital Signs Temp Pulse Resp BP Pulse Ox O2 Del Method 08/01/24 14:14 98.4 F 91 H 17 142/72 H 91 Room Air 08/01/24 07:30 Room Air 08/01/24 07:14 97.9 F 74 16 172/81 H 93 Room Air Laboratory Results 08/01/24 06:26 08/01/24 06:26 PG Care Time/CCT Total # of Minutes Spent Total Time Spent with Patient: I personally spent: 65 minutes today on clinical care activities including: reviewing chart notes and vital signs reviewing labs reviewing studies discussion with store consultant(s) examining and counseling the patient counseling the patient's family writing orders documentation Coding Level of Care Code 69336 SUB INP/OBS CARE 3/50MIN Diagnoses Infective endocarditis of mitral valve I33.0 Neutropenic fever D70.9; R50.81 Pneumonia J18.9 Metastatic primary lung cancer C34.90 Acute renal failure N17.9 Pulmonary hypertension I27.20 Pancytopenia D61.818
[2024-08-02 06:08] LABS: Hematocrit (blood only) 25.2 % (42.0-52.0); Hemoglobin 8.3 g/dl (14.0-18.0); Mean Corpuscular Hemoglobin 30.5 pg (25.0-34.0); Mean Corpuscular Hgb Conc 32.9 g/dL (32.0-36.0); Mean Corpuscular Volume 92.6 fL (80.0-100.0); Nucleated RBC # (auto) 0.02 K/uL (0.00-0.12); Nucleated RBC % (auto) 0.1 %; Platelet Count 184 K/uL (130-400); RDW Coefficient of Variation 15.7 % (11.5-14.5); RDW Standard Deviation 50.8 fL (36.4-46.3); Red Blood Count 2.72 M/uL (4.70-6.10); White Blood Count 28.81 K/ul (4.8-10.8)
[2024-08-02] MEDS: NEPHROCAPS PO SCH (08:08)
--- NOTE | 2024-08-02 11:16 | Nephrology Progress Note ---
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 Received rasburicase on 07/14/2024 but kidney function continued to worsen and he was started on dialysis during last hospitalization and also started on chemotherapy. He was admitted to the hospital this time with neutropenic fever and bacteremia with Pseudomonas. He had tunneled dialysis catheter removed on 07/29/2024 and had new dialysis catheter placed on 07/31/2024. Culture from catheter tip was negative but by the time it was done he was already on antibiotic. Echo on 08/01/2024 showed endocarditis with mitral valve vegetation. -- dialysis Saturday. -- Dose medication for eGFR less than 10 --Left nephrology precaution for vascular access in future -- Continue Nephrocaps, PhosLo with meals --Plan to continue antibiotic for 6 weeks Admission and Anticipated Discharge Date Admission Date: July 25, 2024 Veronica Christine was seen and evaluated this morning with family at bedside. Overall feels well, denies any symptoms. Review of Systems Review of Systems: All systems reviewed & are unremarkable except as noted in Subjective Physical Exam Constitutional: WD/WN, vitals as above no acute distress Eyes: + anicteric sclerae Respiratory: Auscultation: + diminished lung sounds Cardiovascular: Rate/Rhythm: regular rate and regular rhythm Heart Sounds: normal S1 and normal S2 Extremities: no edema Musculoskeletal: Extremities: extremities normal to inspection Skin: no rashes, warm and dry Neurologic: no focal motor deficits Psychiatric: Orientation: alert and oriented x 3 Affect: euthymic affect Results & Data Vital Signs (Past 12 Hours) Vital Signs Temp Pulse Resp BP Pulse Ox O2 Del Method 08/02/24 07:14 36.6 C 83 16 164/74 H 92 Room Air PG Care Time/CCT Total # of Minutes Spent Total Time Spent with Patient: Total time spent is greater than 50% in coordination of care (as documented) at patient's floor/unit and/or counseling patient: Coding Level of Care Code 32577 SUB INP/OBS CARE MIN Diagnoses ESRD on hemodialysis N18.6; Z99.2 Bacteremia R78.81 Infective endocarditis of mitral valve I33.0 Small cell lung cancer C34.90 Metastasis to liver C78.7 Diabetes E11.9 Hypertension I10
--- NOTE | 2024-08-02 18:56 | Hospitalist Progress Note ---
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 admitted with neutropenic fever and productive cough following chemotherapy. Found to have MDR pseudomonas bacteremia, ID consulted, treated with meropenem. Source unclear. Dialysis line removed, line holiday, tunnelled line replaced 07/31. After discussion with ID this am obtained # MDR Pseudomonas endocarditis, bacteremia has cleared. Vegetation on anterior valve leaflet with preserved MV function # Neutropenic fever caused by the above. Could be pneumonia, CLABSI, urinary source, bowel source (acute on chronic diarrhea following chemo). # Possible pneumonia - L base on CXR, sputum culture normal renny, elevated procalcitonin, MRSA nares neg # Pancytopenia due to antineoplastic chemotherapy - counts recovering, monitor CBC -GCSF x 3 days. WBC 23-->33 now improved to 30. leukocytosis likely related to GCSF, discussed with ID - repeat blood cultures if continuing to rise -HD catheter removed 07/29, replaced by Dr. Gallegos 07/31 -TTE on 08/01, discussed with cost specialist - anterior mitral valve vegetation, does not appear to compromise the valve function, mild MR. discussed with ID and his oncologist -continue meropenem started 07/28 (cefepime 07/25, pip-tazo 07/26-07/27). needs 6 weeks IV antibiotics after catheter removal 07/29 -repeat blood cultures 07/26 negative, 07/27 NGTD, cath tip culture negative. 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 Rare but can be atypical paraneoplastic syndrome. CTA/P without acute abdominal infectious/inflammatory pathology --continue questran bid prn, lomotil PRN --C. diff negative, stool biofire negative --lactose free diet, probiotic (stop on discharge since will get chemo soon) --significantly improved since admission # Primary SCLC, multiple liver metastases, possible L3 met vs Schmorl's node Oncology following - updated Dr. Werner 07/31, 08/01 Recently completed inpatient chemo, treated with hemodialysis for urate nephropathy which continues Saturday - Hgb Transfusion threshold 8.0 given multiple comorbidities, platelet threshold with minor bleeding 30,000. Dr. Werner perfers to continue chemo if stable on antibiotics, will discuss with ID # Troponin elevation Minimally elevated troponin without exponential rise. Likely due to myocardial demand ischemia and/or impaired clearance with renal disease EKG sinus without territorial ischemia # DM2 all BG checks have been normal, stop checks A1c well-controlled 6.3% Chronic stable issues: Hypertension: Continue carvedilol VTE PPx: chemopx low dose SQ heparin I updated his at bedside 07/31, and daughter 08/01, and son, DIL 08/02 Admission and Anticipated Discharge Date Admission Date: July 25, 2024 Subjective he is doing great today watching the [employer] game, has not had any more significant diarrhea, he said he is eating extremely well anything the gets put in front of him - which is a huge improvement Physical Exam 2 Physical Exam: PHYSICAL EXAMINATION Last 24h vital signs reviewed, see documentation in flowsheet General: sitting up in bed watching TV HEENT: Normocephalic, atraumatic, pupils round and equal, sclerae anicteric, no conjunctival injection, moist mucus membranes Lungs: normal WOB Heart: tunneled hemodialysis catheter right chest no bleeding or oozing dressing is intact Abdomen: nondistended Extremities: Warm, dry, well-perfused. minimal bilateral pitting lower extremity edema - continues to improve. Neuro: Alert and oriented x 4, face symmetric, moves 4 extremities well Psych: Normal affect and behavior Results & Data Results & Data Vital Signs (Past 12 Hours) Vital Signs Temp Pulse Resp BP Pulse Ox O2 Del Method 08/02/24 14:12 97.7 F 87 17 160/67 H 95 Room Air 08/02/24 07:14 97.9 F 83 16 164/74 H 92 Room Air Laboratory Results 08/02/24 05:34 08/01/24 06:26 PG Care Time/CCT Total # of Minutes Spent Total Time Spent with Patient: Total time spent is greater than 50% in coordination of care (as documented) at patient's floor/unit and/or counseling patient: Coding Level of Care Code 68862 SUB INP/OBS CARE 2/35MIN Diagnoses Infective endocarditis of mitral valve I33.0 Neutropenic fever D70.9; R50.81 Pneumonia J18.9 Metastatic primary lung cancer C34.90 Acute renal failure N17.9 Pulmonary hypertension I27.20 Pancytopenia D61.818
[2024-08-03 06:24] LABS: Hematocrit (blood only) 24.8 % (42.0-52.0); Mean Corpuscular Hemoglobin 29.9 pg (25.0-34.0); Mean Corpuscular Hgb Conc 32.3 g/dL (32.0-36.0); Mean Corpuscular Volume 92.5 fL (80.0-100.0); Mean Platelet Volume 11.5 fL (9.4-12.4); Nucleated RBC # (auto) 0.03 K/uL (0.00-0.12); Nucleated RBC % (auto) 0.1 %; Platelet Count 223 K/uL (130-400); RDW Standard Deviation 51.9 fL (36.4-46.3); Red Blood Count 2.68 M/uL (4.70-6.10); White Blood Count 27.17 K/ul (4.8-10.8)
[2024-08-03 06:58] LABS: Albumin Level 2.8 gm/dl (3.4-5.0); Calcium 8.5 mg/dl (8.6-10.3); Creatinine Clr Calc Pharmacy 9.4 ml/min; Phosphorus 4.8 mg/dl (2.5-4.9); Potassium 4.7 mmol/L (3.5-5.1)
[2024-08-03 07:12] VITALS: RESP 16; O2SAT 93
--- NOTE | 2024-08-03 10:20 | Nephrology Progress Note ---
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 Received rasburicase on 07/14/2024 but kidney function continued to worsen and he was started on dialysis during last hospitalization and also started on chemotherapy. He was admitted to the hospital this time with neutropenic fever and bacteremia with Pseudomonas. He had tunneled dialysis catheter removed on 07/29/2024 and had new dialysis catheter placed on 07/31/2024. Culture from catheter tip was negative but by the time it was done he was already on antibiotic. Echo on 08/01/2024 showed endocarditis with mitral valve vegetation. --Tolerating dialysis today, will continue on Saturday, Saturday, Saturday dialysis, as there is no sign of renal recovery and chances of getting slim for seeing any recovery in future. Hemoglobin -- Dose medication for eGFR less than 10 -- Ok to have PICC line in non dominant arm -- Continue Nephrocaps, PhosLo with meals --Plan to continue antibiotic for 6 weeks --Epogen 52819 units x 1 dos enow Admission and Anticipated Discharge Date Admission Date: July 25, 2024 Veronica Christine was seen and evaluated during dialysis. Overall feels well, denies any symptoms. He was inquiring about dialysis and AVF. Lab this morning was notable for sharp rise in creatinine off of dialysis over the weekend indicating no recovery of kidney function. Hemoglobin has been low 8.0 this morning. Physical Exam Constitutional: WD/WN, vitals as above no acute distress Eyes: + anicteric sclerae Respiratory: Auscultation: + diminished lung sounds Cardiovascular: Rate/Rhythm: regular rate and regular rhythm Heart Sounds: normal S1 and normal S2 Extremities: no edema Musculoskeletal: Extremities: extremities normal to inspection Skin: no rashes, warm and dry Neurologic: no focal motor deficits Psychiatric: Orientation: alert and oriented x 3 Affect: euthymic affect Results & Data Vital Signs (Past 12 Hours) Vital Signs Temp Pulse Pulse Resp BP BP Pulse Ox 08/03/24 09:00 79 117/65 01/27/25 08:45 83 122/69 08/03/24 08:39 36.6 C 83 08/03/24 07:10 36.6 C 83 16 157/78 H 93 O2 Del Method 08/03/24 09:00 08/03/24 08:45 08/03/24 08:39 08/03/24 07:10 Room Air PG Care Time/CCT Total # of Minutes Spent Total Time Spent with Patient: Total time spent is greater than 50% in coordination of care (as documented) at patient's floor/unit and/or counseling patient: Coding Level of Care Code 26464 SUB INP/OBS CARE 2/35MIN Diagnoses ESRD on hemodialysis N18.6; Z99.2 Bacteremia R78.81 Infective endocarditis of mitral valve I33.0 Small cell lung cancer C34.90 Metastasis to liver C78.7 Diabetes E11.9 Hypertension I10
[2024-08-03] MEDS: EPOETIN ALFA 20,000 UNITS/ML VIAL IV STA (10:25)
[2024-08-03 12:16] VITALS: BP 152/72; PULSE 74; TEMP 98.4
--- NOTE | 2024-08-03 12:36 | Infectious Disease Progress Nt ---
Date of Service August 03, 2024 Assessment & Plan (1) Metastasis to liver: (2) Diarrhea: (3) Sepsis: (4) Pancytopenia: (5) Neutropenic fever: (6) Small cell lung cancer: (7) Metastatic primary lung cancer: Plan This is a 69-year-old man with a past medical history of small cell lung cancer with metastasis on chemotherapy-carboplatin/etoposide, (cycle 1 day 1 on 07/16/2024, cycle 1 day 2 on 07/17/2024), tumor lysis syndrome, lung mass, end- stage renal disease on HD Saturday/Saturday/Saturday, COPD with emphysema, presents on 07/25/2024 with fever, lightheadedness, mild cough. He has an HD catheter in place (placed 07/14/2024): Last dialysis on 07/24/2024. He denies sweats, chills, pain at catheter site, abdomimin pain, back , joint pain, headache, new rash, change urine habits. He complains of diarrhea for several days ( ? weeks per ) . Denies sick contacts. His is at bedside. Daughter is on the phone and provides additional history. In the ED, temperature 37.8, pulse 76, RR 20, blood pressure 168/74, O2 sats 92% on room air. Labs WBC 0.60, ANC 0.09, hemoglobin 9, hematocrit 27.6, platelets 18, BUN 61, creatinine 6.27. Procalcitonin 99.90. Urinalysis is 0-5 WBC. Influenza, RSV, COVID testing negative. Complete viral respiratory panel negative. Blood cultures growing Pseudomonas aeruginosa in 2 out of 4 bottles (resistant to cefepime, ceftazidime, Zosyn) C diff testing negative. CXR shows new left basilar atelectasis or pneumonia and trace left pleural effusion. Stable left hilar mass. Increased interstitial markings typical of pneumonitis or vascular congestion. CTAP shows an enlarged liver with multiple ill-defined low-density mass lesions throughout the entire liver; Likely diffuse metastasis. No acute inflammatory changes are seen involving the bowel. No pneumoperitoneum or abscess. he was initially on Zosyn but changed to Meropenem 07/28. ID consulted for Pseudomonas bacteremia. Microbiology: Blood cultures 07/25 2/4 bottles positive for Pseudomonas aeruginosa P aerugino RX M.I.C. --- --------- Amikacin S <=16 Aztreonam R >16 Cefepime R >16 Ceftazidime R >16 Ciprofloxacin S <=0.25 Gentamicin S 4 Levofloxacin S <=0.5 Meropenem S <=1 Tobramycin S <=2 Pip/Tazo R >64 Sputum culture 07/25 few gram-negative rods, few GPC on Gram stain, normal moderate renny on culture. Blood culture 07/26 NG Blood culture 07/27 HD catheter line NG Blood culture 07/29 cath tip CDiff gene 07/25 ag 07/27 negative Blood culture 08/01 NGTD Prior MICRO GI/Stool PCR panel 07/13/24 negative Antibiotics: Cefepime 07/25 Zosyn 07/26 - 07/27 Meropenem 07/28ongoing #Pancytopenia with neutropenia, neutropenia resolved 07/28 #MDR Pseudomonas Bacteremia with MV endocarditis #ESRD ON HD via R chest HD catheter #? Pneumonia # Metastatic SCC of Lung on chemotherapy #B/L shoulder surgery with screws in place ( per his report) #Diarrhea, cdiff neg* 2 this admission, norovirus neg 07/13 #Febrile at home, afebrile since admission #Elevated procalcitonin Source of Pseudomonas bacteremia may be the line with resulting endocarditis.. Although he presents with cough there is no anupam infiltrates on lung imaging. His procalcitonin is markedly elevated, however this is hard to interpret in the setting of cancer and end-stage renal disease requiring dialysis. He denies urinary symptoms. UA results not consistent with infection. He has diarrhea but would not expect Pseudomonas to be the cause of this. Diarrhea ongoing for several weeks. GI panel negative 07/13. CDiff neg twice this admit. His right chest HD catheter is without signs of infection on exam. He has no open wounds or rashes on exam. NO spinal tenderness or joint pain. Given Pseudomonas bacteremia and no other clear source, line infection was entertained In setting of MDR Pseudomonas bacteremia, immunocompromised state , initial neutropenia, line was removed as PsA is relatively high virulence with relat ively low likelihood of treatment response of bacteremia with antibiotic therapy alone if potential source remains. TTE done of 08/01 show small Valve vegetation on MV without MR or valve compromise. TV veg can not be excluded. May have seeded valve from line or vice versa. GNR endocarditis is not common but does occur. Repeat BC 07/26, 07/27 NG and repeat BC 08/01 NGTD 07/29: WBC 24. Underwent HD line removal, BCx obtained 07/26 and 07/27 NGTD 07/30: WBC 33.6, Was neutropenic on 07/27 with anc 0.32. He received 3 doses of G-CSF (07/25-07/27). Leukocytosis, may be secondary to this. No clear evidence of new or worsening infection. C diff gene ( + 07/25 and 07/29), on 2l, afebrile. 07/31: WBC 30.47, creatinine 5.38. New HD catheter placed today. 08/03- weekend events reviewed. TTE shows a small area of suspected endocarditis on the posterior mitral valve and chordae tendon: does not appear to compromise the mitral valve. There is mild to moderate mitral annular calcification. There is mild mitral regurgitation. Tricuspid valve not well- visualized though endocarditis cannot be excluded. There is mild tricuspid regurgitation. No s urgical intervention per cards given size. Repeat BC since removal of line with NGTD Pt feels well, Picc placed. On RA. Recommendations Psa bacteremia possibly 2/2 line infection with seeding to MV or vice versa - Will treat as endocarditis. -Continue Meropenem 1 gram Iv daily ( HD dosing). Anticipate 6 weeks of antibiotics from sterile BC post HD line removal. -FU repeat BC 08/01 BC post New HD line -Monitor WBC ( likely filgrastim effect) -Weekly cbc with diff, bmp, lft on IV abx -Check BC one week post completion of IV abx -Set Up care with local ID Plan for 6 weeks of therapy from sterile BC post line removal (08/01/24- 09/12/24). Discussed plan with pt and his at bedside. Monitor closely for new fevers, pain/erythema at New HD site or PICC line. Discussed with team ID will sign off. Please call with questions or if BC from 08/01 positive Karen Fuchs MD, MPH Infectious Disease [facility] Call [phone] with questions Admission and Anticipated Discharge Date Admission Date: July 25, 2024 Subjective Subsequent visit was provided via telemedicine using two-way real-time interactive telecommunication between the patient and the telemedicine provider. For the duration of the visit, the provider was performing the assessment from a different facility than the patient. This includesuse of bluetooth stethoscope forauscultationperformed by the telepresenter that the telemedicine provider can hear if described in the physical exam. [employer] contact information: Please call [facility] Call Center . (Phone Number For Physician Use Only) After establishing a telemedicine visit, patient was: Patient was verified with two unique identifiers Time Spent with Patient: Subsequent => 35 min WBC remains elevated but trending down. WBC 27 Picc line placed this am in LUE No pain at new HD site Physical Exam Physical Exam: Gen- +less pallor, NAD, on RA Neck- supple Lungs- Non labored breathing, On RA. New R HD cath Abdomen- softly distended, not tender Extremities- BL LE edema , LUE Picc- just placed - No cva or suprapubic tenderness. Neuro-AAO times 3 Psych-cooperative Skin- No rash or open wounds. Results & Data Vital Signs (Past 12 Hours) Vital Signs Temp Pulse Pulse Resp BP BP Pulse Ox 08/03/24 11:58 36.9 C 74 152/72 H 08/03/24 11:30 83 127/68 08/03/24 11:00 72 138/69 08/03/24 10:30 73 131/75 08/03/24 10:00 78 141/76 H 08/03/24 09:30 73 134/69 08/03/24 09:00 79 117/65 08/03/24 08:45 83 122/69 08/03/24 08:39 36.6 C 83 08/03/24 07:10 36.6 C 83 16 157/78 H 93 O2 Del Method 08/03/24 11:58 08/03/24 11:30 08/03/24 11:00 08/03/24 10:30 08/03/24 10:00 08/03/24 09:30 08/03/24 09:00 08/03/24 08:45 08/03/24 08:39 08/03/24 07:10 Room Air Laboratory Results Short CBC 08/03/24 Range/Units 05:33 WBC 27.17 H (4.8-10.8) K/ul Hgb 8.0 L (14.0-18.0) g/dl Hct 24.8 L (42.0-52.0) % Plt Count 223 (130-400) K/uL BMP 08/03/24 05:33 Sodium 140 Potassium 4.7 Chloride 108 H Carbon Dioxide 25 BUN 78 H D Creatinine 7.10 H* D Glucose 89 Calcium 8.5 L Liver Function 08/03/24 Range/Units 05:33 Albumin 2.8 L (3.4-5.0) gm/dl Diagnostic Findings Microbiology 07/25/24 16:17 Blood Aerobic Blood Culture - Final Pseudomonas aeruginosa 07/25/24 16:17 Blood Anaerobic Blood Culture - Final No growth in Anaerobic bottle after 5 days. 07/25/24 15:51 Blood Aerobic Blood Culture - Final Pseudomonas aeruginosa 07/25/24 15:51 Blood Anaerobic Blood Culture - Final No growth in Anaerobic bottle after 5 days. 08/01/24 09:17 Blood Aerobic Blood Culture - Preliminary No growth in Aerobic bottle after 48 hours. 08/01/24 09:17 Blood Anaerobic Blood Culture - Preliminary No growth in Anaerobic bottle after 48 hours. 07/27/24 13:59 Blood Aerobic Blood Culture - Final No growth in Aerobic bottle after 5 days. 07/27/24 13:59 Blood Anaerobic Blood Culture - Final No growth in Anaerobic bottle after 5 days. 07/29/24 15:00 Catheter Tip, Perm Cathether Catheter Tip Culture - Final No growth 07/26/24 11:33 Blood Aerobic Blood Culture - Final No growth in Aerobic bottle after 5 days. 07/26/24 11:33 Blood Anaerobic Blood Culture - Final No growth in Anaerobic bottle after 5 days. 07/26/24 11:34 Blood Aerobic Blood Culture - Final No growth in Aerobic bottle after 5 days. 07/26/24 11:34 Blood Anaerobic Blood Culture - Final No growth in Anaerobic bottle after 5 days. 07/25/24 21:06 Sputum, Expectorated Gram Stain - Final 07/25/24 21:06 Sputum, Expectorated Sputum Culture - Final Moderate normal renny. Medications Administered Home Medications Medication Instructions Recorded Confirmed Last Taken betamethasone dipropionate 0.05 % 1 applic topical BID PRN skin 08/03/21 07/25/24 Unknown topical cream irritation #45 grams carvedilol 25 mg tablet 25 mg PO BID #60 tabs 08/03/21 07/25/24 07/24/23 02:30 triamcinolone acetonide 0.1 % 1 applic topical BID PRN Dry 08/03/21 07/25/24 Unknown topical cream scaling areas #15 grams finasteride 5 mg tablet 5 mg PO DAILY #90 tabs 08/13/23 07/25/24 Unknown sildenafil (pulm.hypertension) 20 40 mg (2 x 20 mg) PO 3XWK #90 tabs 04/01/24 07/25/24 Unknown mg tablet (Revatio) lansoprazole 30 mg capsule,delayed 30 mg PO DAILY PRN heart burn 07/12/24 07/25/24 Unknown release allopurinol 300 mg tablet 300 mg PO DAILY #14 tabs 07/21/24 07/25/24 Unknown benzonatate 100 mg capsule 100 mg PO BID PRN cough #20 caps 07/21/24 07/25/24 Unknown blood-glucose meter (OneTouch #1 ea 07/21/24 07/23/24 Unknown Verio Flex Start kit) guaifenesin 600 mg tablet, 600 mg PO BID #10 tabs 07/21/24 07/25/24 Unknown extended release 12 hr (Mucinex) melatonin 3 mg capsule 3 mg PO HS #20 caps 07/21/24 07/25/24 Unknown ondansetron 4 mg disintegrating 4 mg PO BID PRN nausea and 07/21/24 07/25/24 Unknown tablet vomiting #14 tabs umeclidinium 62.5 mcg/actuation 1 inh inhalation DAILY #7 ea 07/21/24 07/25/24 Unknown blister powder for inhalation (Incruse Ellipta) blood-glucose meter (OneTouch #1 ea 07/22/24 07/23/24 Unknown Verio Flex Start kit) rosuvastatin 10 mg tablet 10 mg PO QPM #90 tabs 07/22/24 07/25/24 Unknown trazodone 50 mg tablet 50 mg PO .qhs #30 tabs 07/22/24 07/25/24 Unknown calcium acetate 667 mg tablet 1,334 mg PO .with meals 07/23/24 07/25/24 Unknown olanzapine 2.5 mg tablet 2.5 mg PO DIRECTED 07/25/24 07/25/24 Unknown ondansetron 8 mg disintegrating 8 mg PO DIRECTED PRN n/v 07/25/24 07/25/24 Unknown tablet prochlorperazine maleate 10 mg 10 mg PO DIRECTED PRN n/v 07/25/24 07/25/24 Unknown tablet Active Medications Generic Name Dose Route Start Last Admin Trade Name Freq PRN Reason Stop Dose Admin Acetaminophen 650 mg 07/25/24 20:32 07/28/24 00:54 Acetaminophen 325 Mg Tab PO 08/24/24 20:31 650 mg Q4H PRN Administration Fever/Mild Pain (Pain 1-5) Allopurinol 300 mg 07/26/24 09:00 08/03/24 07:52 Allopurinol 300 Mg Tab PO 08/25/24 08:59 300 mg DAILY IAM Administration Amlodipine Besylate 5 mg 07/26/24 11:15 08/03/24 07:53 Amlodipine Besylate 5 Mg Tab PO 08/25/24 11:14 5 mg QAM IAM Administration Calamine/Phenol 1 appln 07/26/24 08:33 07/26/24 11:59 Menthol-Zinc Oxide 360 Appln/120 Gm Tube EXT 08/25/24 08:59 1 appln QID PRN Administration skin protection Calcium Acetate 1,334 mg 07/25/24 21:00 08/03/24 12:05 Calcium Acetate 667 Mg Cap/Tab PO 08/24/24 20:59 1,334 mg TIDM IAM Administration Carvedilol 25 mg 07/25/24 21:00 08/03/24 08:10 Carvedilol 25 Mg Tab PO 08/24/24 20:59 Not Given BID IAM Diphenoxylate HCl/Atropine 1 tab 07/29/24 14:23 07/31/24 15:50 Diphenoxylate/Atropine 2.5/0.025mg Tab PO 08/28/24 14:22 1 tab QID PRN Administration Diarrhea Finasteride 5 mg 07/26/24 09:00 08/03/24 07:50 Finasteride 5 Mg Tab PO 08/25/24 08:59 5 mg DAILY IAM Administration Guaifenesin 600 mg 07/25/24 21:00 08/03/24 07:52 Guaifenesin 600 Mg Tabcr PO 08/24/24 20:59 600 mg BID IAM Administration Heparin Sodium (Porcine) 5,000 units 07/29/24 21:00 08/03/24 07:50 Heparin Sod 5,000 Unit/0.5 Ml Vial SQ 08/28/24 20:59 Not Given Q12 IAM Meropenem 1,000 mg/ Syringe 20 mls @ 4 mls/min 07/31/24 16:00 08/02/24 16:17 IV 08/12/24 15:59 4 mls/min Q24H IAM Administration Lactobacillus Acidophilus 1,250 mg 07/29/24 14:30 08/03/24 07:55 Advanced Probiotic 625 Mg Capsule PO 08/28/24 14:29 1,250 mg DAILY IAM Administration Melatonin 3 mg 07/25/24 21:00 08/02/24 21:05 Melatonin 3 Mg Tab PO 08/24/24 20:59 3 mg HS IAM Administration Oxycodone HCl 5 mg 07/25/24 20:32 08/02/24 21:05 Oxycodone Hcl Ir 5 Mg Tab (Immediate Release) PO 08/08/24 20:31 5 mg Q6H PRN Administration Mod/severe Pain (6-10) on NRS Rosuvastatin Calcium 10 mg 07/25/24 21:00 08/02/24 21:09 Rosuvastatin Calcium 10 Mg Tab PO 08/24/24 20:59 10 mg QPM IAM Administration Sildenafil Citrate 40 mg 07/27/24 09:00 08/03/24 07:51 Sildenafil Citrate 20 Mg Tablet PO 08/26/24 08:59 40 mg [id number] IAM Administration Trazodone HCl 50 mg 07/25/24 21:00 08/02/24 21:24 Trazodone Hcl 50 Mg Tab PO 08/24/24 20:59 50 mg HS IAM Administration Umeclidinium Conception 1 puffs 07/26/24 09:00 08/03/24 07:55 Umeclidinium Conception 62.5mcg/Blister 7 Puffs/Inhaler INH 08/25/24 08:59 1 puffs DAILY IAM Administration Vitamin B Complex/Folic Acid 1 cap 08/02/24 09:00 08/03/24 07:49 Nephrocaps PO 09/01/24 08:59 1 cap QAM IAM Administration
--- NOTE | 2024-08-04 13:18 | Discharge Summary ---
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 admitted with neutropenic fever and productive cough following chemotherapy. Found to have MDR pseudomonas bacteremia, ID consulted, treated with meropenem. Source unclear. Dialysis line removed, line holiday, tunnelled line replaced 07/31. TTE obtained 08/01 and there was a vegetation on the anterior leaflet of the mitral valve. Discharged with meropenem home infusion to complete 6 weeks of antibiotics for pseudomonas endocarditis # MDR Pseudomonas endocarditis, bacteremia has cleared. Vegetation on anterior valve leaflet with preserved MV function # Neutropenic fever caused by the above. Could be pneumonia, CLABSI, urinary source, bowel source (acute on chronic diarrhea following chemo). Unable to determine. # Possible pneumonia - L base on CXR, sputum culture normal renny, elevated procalcitonin, MRSA nares neg # Pancytopenia due to antineoplastic chemotherapy - counts recovering -GCSF x 3 days. WBC 23-->33 leukocytosis likely related to GCSF, discussed with ID - repeated blood cultures since leukocytosis persisted. -HD catheter removed 07/29, replaced by Dr. Gallegos 07/31 -TTE on 08/01, discussed with hobber - anterior mitral valve vegetation, does not appear to compromise the valve function, mild MR. discussed with ID and his oncologist -continue meropenem started 07/28 (cefepime 07/25, pip-tazo 07/26-07/27). needs 6 weeks IV antibiotics after catheter removal 07/29 (end date 09/12/24) -repeat blood cultures 07/26 negative, 07/27 NGTD, cath tip culture negative. blood cultures 08/01 no growth to date at 24 hours -PICC placed in non-dominant arm. Discussed with telecommunication lines repairer, sparing dominant (right) arm for vascular/dialysis access, however, prognosis from his cancer is such that it is unlikely he will be well enough for fistula placement in the future. -needs repeat TTE as outpatient to better evaluate tricuspid valve which could not be well visualized - referral made to [facility]ology for TTE -consider gastroenterology referral for a colonoscopy to make sure there isn't a bowel source for the pseudomonas and chronic diarrhea. 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 # Diarrhea - sounds like acute on chronic (or subacute) - probably effect of chemo, antibiotics and exacerbation of lactose intolerance. Rare but can be atypical paraneoplastic syndrome. CTA/P without acute abdominal infectious/inflammatory pathology --C. diff negative, stool biofire negative --lactose free diet, probiotic given while he was not neutropenic (stopped on discharge since will get chemo soon) --questran, immodium ineffective. Lomotil was effective - discharge Rx for this --significantly improved since admission # Primary SCLC, multiple liver metastases, possible L3 met vs Schcarl's node Oncology following - updated Dr. Werner 08/03 Recently completed first cycle chemo while inpatient, treated with hemodialysis for urate nephropathy which continues Saturday - Hgb Transfusion threshold 8.0 given multiple comorbidities, platelet threshold with minor bleeding 30,000. Dr. Werner perfers to continue chemo if stable on antibiotics, she will discuss with ID # Troponin elevation Minimally elevated troponin without exponential rise. Likely due to myocardial demand ischemia and/or impaired clearance with renal disease EKG sinus without territorial ischemia. No evidence of ACS # DM2 all BG checks have been normal, stop checks A1c well-controlled 6.3% Chronic stable issues: Hypertension: Continue carvedilol I updated his at bedside 07/31, and daughter 08/01, and son, DIL 08/02 Discharged today after hemodialysis, PICC placement, meropenem dose. Next dose tomorrow afternoon, confirmed with care coord that home health / home infusion going out 08/05 for training and ABX dose. Notes For Next Care Provider meropenem 6 weeks through 09/12 for MDR pseudomonas mitral valve endocarditis made referral for TTE at [facility] to see if they can visualize the tricuspid valve Medication Changes From Visit meropenem -->09/12 oxycodone for cancer related pain lomotil for chemotherapy related diarrhea Admission HPI Per Admitting Provider Emmett is a 69-year-old male with PMH of small cell lung cancer with mets, tumor lysis syndrome, lung mass, dialysis M/W/F, COPD with emphysema, diabetes, HLD, BPH, and HTN. He presented on 07/25 for acute onset of fever and cough. Patient's is at bedside and reports that his fever started last night just before bed. She took his temperature and it was up to 103 F. He took 2 Tylenol, and was okay until the morning. His fever then returned around 12:30 PM, he took 2 additional Tylenol and went to the hospital. Patient reports he has had a productive cough (yellow sputum production) which started during his most recent hospitalization. Recently hospitalized at OR from 07/12 to 07/21 for new metastatic cancer diagnosis (lung primary), as well as tumor lysis syndrome. Patient reports he has had SOB when he lays on his right side. No SOB at rest while laying on the left side. Patient is currently on supplemental oxygen at home (2L NC at night). NKDA. He took his regular morning medicine today. Patient is a former tobacco cigarette smoker, but quit on 07/12 after his cancer diagnosis. No prior history of DVT/PEs. He is currently following with OR nephrology for dialysis M/W/F. Last dialysis session was on Monday 07/24, and he reports no problems with this session. Patient is still producing urine. Additionally, he has been having lower back pain and pain around his buttocks; has been applying Desitin. reports that he has had loose stool over the past couple days. Brown in color. Liquidy. Not malodorous. No reported blood in his stool. Patient is febrile at 37.8 C on arrival; SpO2 92% on RA; HTN at 171/81. ED course: Cefepime 2000 mg IV NSS 500 mL IV ROS: Patient endorses lightheadedness, fever, productive cough (yellow sputum production) since being in the hospital, hemoptysis, nose bleeds, SOB when laying on the right side, pleuritic CP, low/transfers abdominal pain that developed in the ED, lower back pain from swelling, and swelling/pain in the legs. Patient denies night-sweats, chills, syncope, headache, chest pain, chest palpitations, dysuria, burning with urination, and blood in the urine/stool. Per nursing staff, patient's SpO2 dropped to 86% when he lied flat on his back on RA. Placed on 2L NC humidified oxygen supplementation and subsequently returned to 94%. Discharge Exam PHYSICAL EXAMINATION Last 24h vital signs reviewed, see documentation in flowsheet General: awake, on dialysis HEENT: Normocephalic, atraumatic, pupils round and equal, sclerae anicteric, no conjunctival injection, moist mucus membranes Lungs: normal WOB Heart: tunneled hemodialysis catheter right chest in use Abdomen: nondistended Extremities: Warm, dry, well-perfused. lower ext edema has basically resolved Neuro: Alert and oriented x 4, face symmetric, moves 4 extremities well Psych: Normal affect and behavior Discharge Plan Discharge Items Patient Disposition: Home - Home Health Services Reason For Visit: NEUTROPENIC FEVER Discharge Diagnosis: MDR Pseudomonas endocarditis, metastatic small cell lung cancer, AVE on hemodialysis Activity: Resume your previous activity Non-emergency contact: Primary Care Provider, Newspaper Subscription Solicitor and Oncologist Call non-emergency contact if: you have any medication questions, your symptoms worsen and you have a fever Follow-up/Referrals: Daniel Dunn DO [Physician] - Harinder Cardenas DO [Primary Care Provider] - Monique Werner MD [Physician] - Diet: Regular Addtl Attending Provider Instructions: You are being treated for endocarditis (mitral valve infection) caused by a drug-resistant Pseudomonas bacteria. This bacteria can colonize the lungs of people who have COPD, can come from the bowel, can come from the urinary tract. It could have colonized your dialysis catheter so we changed it out. You need 6 weeks of meropenem (IV antibiotic) - through 09/12/24 by home infusion -follow up with Dr. Werner -we are making referral for local infectious disease follow up -we placed order for Echo at [facility] cardiology to get a better look at your tricuspid valve -consider being evaluated by game developer for a colonoscopy to make sure there isn't a bowel source for the pseudomonas and chronic diarrhea. I don't think you will tolerate a colonoscopy well while on chemo though, and it shouldn't be done if your counts are low. Talk to Dr. Werner about this. You were treated for low blood counts following chemotherapy - they have improved as expected Your diarrhea is probably a combination of a few things - chronic diarrhea, lactose intolerance, side effects of chemotherapy -lomotil seems to help, I sent a prescription -stool testing was negative for infections If your insurance rejects the phos binder, please call Dr. Dunn's office. I don't have the ability to do nonformulary request for that medication and there may be an equivalent substitution that he can make. Please return the portable oxygen unit to the hospital. Its a privilege to have access to these units for patients to take home. I have never worked in a hospital which had access to portable concentrators to immediately send home with patients. In other hospitals people have to wait in the hospital up to a few days for an oxygen supply company to bring them in before they go home. It was a pleasure taking care of you in the hospital, Denise Light MD Pending Studies at Discharge: Yes (some blood cultures still pending) Stand-Alone Forms: My [facility], Smoking Cessation Medications and DC Order Prescriptions: New amlodipine [Norvasc] 5 mg Tablet 5 mg PO QAM Qty: 30 0RF acetaminophen 325 mg Tablet 650 mg PO Q4H PRN (Reason: fever or pain) Qty: 0 0RF diphenoxylate-atropine 2.5-0.025 mg Tablet 1 tab PO QID PRN (Reason: diarrhea) Qty: 60 0RF Renal Caps 1 mg Capsule 1 cap PO QAM Qty: 30 0RF oxycodone 5 mg Tablet 5 mg PO Q6H PRN (Reason: pain) Qty: 20 0RF Continued sildenafil (pulm.hypertension) [Revatio] 20 mg tablet 40 mg PO 3XWK Qty: 90 2RF trazodone 50 mg tablet 50 mg PO .qhs Qty: 30 2RF rosuvastatin 10 mg tablet 10 mg PO QPM Qty: 90 3RF Rx Instructions: every evening finasteride 5 mg tablet 5 mg PO DAILY Qty: 90 2RF betamethasone dipropionate 0.05 % cream 1 applic topical BID PRN (Reason: skin irritation) Qty: 45 0RF carvedilol 25 mg tablet 25 mg PO BID Qty: 60 2RF Rx Instructions: must administer with a meal/food triamcinolone acetonide 0.1 % cream 1 applic topical BID PRN (Reason: Dry scaling areas) Qty: 15 0RF lansoprazole 30 mg capsule,delayed release(DR/EC) 30 mg PO DAILY PRN (Reason: heart burn) ondansetron 4 mg tablet,disintegrating 4 mg PO BID PRN (Reason: nausea and vomiting) Qty: 14 0RF melatonin 3 mg capsule 3 mg PO HS Qty: 20 0RF guaifenesin [Mucinex] 600 mg tablet extended release 12hr 600 mg PO BID Qty: 10 0RF allopurinol 300 mg tablet 300 mg PO DAILY Qty: 14 0RF benzonatate 100 mg capsule 100 mg PO BID PRN (Reason: cough) Qty: 20 0RF Incruse Ellipta 62.5 mcg/actuation blister with device 1 inh inhalation DAILY Qty: 7 0RF (DME) blood-glucose meter [OneTouch Verio Flex Start] Kit See Rx Instructions .Route Qty: 1 0RF Rx Instructions: Checked fasting blood sugar in AM; discuss further diabetes management with PCP (DME) blood-glucose meter [OneTouch Verio Flex Start] Kit See Rx Instructions .Route Qty: 1 0RF Rx Instructions: As directed prochlorperazine maleate 10 mg tablet 10 mg PO DIRECTED PRN (Reason: n/v) Rx Instructions: filled 07/23 25 day supply olanzapine 2.5 mg tablet 2.5 mg PO DIRECTED Rx Instructions: filled 07/23 16 day supply ondansetron 8 mg tablet,disintegrating 8 mg PO DIRECTED PRN (Reason: n/v) Rx Instructions: filled 07/23 30 day supply calcium acetate 667 mg tablet 1,334 mg PO .with meals Qty: 180 0RF Discharge Orders: Discharge Order (Routine); Ordered 08/03/24 Ordered By: Denise Tafoya/Other Patient Handouts: PICC, Caring for Your PICC Dc Admission Data Admit Date/Time: 07/25/24 19:12 Attending Provider: Denise Light Admit Provider: Jeyson Garcia Primary Care Provider: Harinder Cardenas Other Providers: Ruba,Roque; [facility]; Carlo Hastings; Anthony Ba; Karen Fuchs; Riki Gallegos; Preethi Pires Other Interventions: Discharge Summary Assessment (RN) Last Done: 08/03/24 14:43 Hospital Stay Data Consultations 07/25/24 18:12 Consult Nephrology Routine Consult Oncology Routine ED Decision to Admit Stat 07/26/24 11:12 Consult Infectious Diseases Routine 07/28/24 14:29 Consult Vascular Surgery Routine Procedures Performed Operation Date: 07/31/24 10:20 Actual Procedures p Perm Catheter Placement,Right Internal Jugular Approach,Ultrasound Localiztion of Right Internal Jugular Vein,Fluoroscopy for Positioning,Moderate Sedation [id number](Right) - Riki Gallegos MD Diagnostic Imagining Performed 07/25/24 18:33 CT abd pelvis wo con Stat 07/31/24 08:22 EV cvc remov tunnel wo prt/air cargo agent Routine US EV guide vascular access Routine Pending Results Patient Have Any Pending Studies at Discharge: Yes (some blood cultures still pending) Discharge Instructions Given to Patient (Per Discharging Provider) You are being treated for endocarditis (mitral valve infection) caused by a drug-resistant Pseudomonas bacteria. This bacteria can colonize the lungs of people who have COPD, can come from the bowel, can come from the urinary tract. It could have colonized your dialysis catheter so we changed it out. You need 6 weeks of meropenem (IV antibiotic) - through 09/12/24 by home infusion -follow up with Dr. Werner -we are making referral for local infectious disease follow up -we placed order for Echo at [facility] cardiology to get a better look at your tricuspid valve -consider being evaluated by game developer for a colonoscopy to make sure there isn't a bowel source for the pseudomonas and chronic diarrhea. I don't think you will tolerate a colonoscopy well while on chemo though, and it shouldn't be done if your counts are low. Talk to Dr. Werner about this. You were treated for low blood counts following chemotherapy - they have improved as expected Your diarrhea is probably a combination of a few things - chronic diarrhea, lactose intolerance, side effects of chemotherapy -lomotil seems to help, I sent a prescription -stool testing was negative for infections If your insurance rejects the phos binder, please call Dr. Dunn's office. I don't have the ability to do nonformulary request for that medication and there may be an equivalent substitution that he can make. Please return the portable oxygen unit to the hospital. Its a privilege to have access to these units for patients to take home. I have never worked in a hospital which had access to portable concentrators to immediately send home with patients. In other hospitals people have to wait in the hospital up to a few days for an oxygen supply company to bring them in before they go home. It was a pleasure taking care of you in the hospital, Denise Light MD Total Time Total Time Spent Total Time Spent (In Minutes): I personally spent: 65 minutes today on clinical care activities including: reviewing chart notes and vital signs reviewing labs arranging PICC line, consent discussion with practice management consultant(s) - telecommunication lines repairer, oncologist, ID discussion with sub acute care nurse examining and counseling the patient writing orders writing prescriptions, discharge instructions documentation Coding Level of Care Code 24153 INP/OBS DISCH >30 MIN Diagnoses Infective endocarditis of mitral valve I33.0 Neutropenic fever D70.9; R50.81 Pneumonia J18.9 Metastatic primary lung cancer C34.90 Acute renal failure N17.9 Pulmonary hypertension I27.20 Pancytopenia D61.818
== END 2024-08-03 16:02 | disposition home health service (06) | DRG 871 ==
LOC: ED 14:46 → 2S 19:12 → SUATTDRO 19:12 → 2S 19:55 → 3E 07-29 23:06
DX: I27.20 Pulmonary hypertension, unspecified; E27.8 Other specified disorders of adrenal gland; D61.810 Antineoplastic chemotherapy induced pancytopenia; I24.89 Other forms of acute ischemic heart disease; C78.7 Secondary malignant neoplasm of liver and intrahepatic bile duct; Z86.16 Personal history of COVID-19; N40.0 Benign prostatic hyperplasia without lower urinary tract symptoms; N17.9 Acute kidney failure, unspecified; I34.89 Other nonrheumatic mitral valve disorders; E11.22 Type 2 diabetes mellitus with diabetic chronic kidney disease; T45.1X5A Adverse effect of antineoplastic and immunosuppressive drugs, initial encounter; C34.12 Malignant neoplasm of upper lobe, left bronchus or lung; I12.0 Hypertensive chronic kidney disease with stage 5 chronic kidney disease or end stage renal disease; D69.6 Thrombocytopenia, unspecified; R19.7 Diarrhea, unspecified; J44.0 Chronic obstructive pulmonary disease with (acute) lower respiratory infection; Z79.899 Other long term (current) drug therapy; J18.9 Pneumonia, unspecified organism; E78.5 Hyperlipidemia, unspecified; Z99.2 Dependence on renal dialysis; N18.6 End stage renal disease; E88.3 Tumor lysis syndrome; Z16.11 Resistance to penicillins; J43.9 Emphysema, unspecified; D84.821 Immunodeficiency due to drugs; A41.52 Sepsis due to Pseudomonas; Z91.011 Allergy to milk products; Z16.19 Resistance to other specified beta lactam antibiotics

== ENCOUNTER 2024-12-23 23:12 | Inpatient (IN) ==
[2024-12-24] MEDS: ALBUT/IPRATROP 3MG/0.5MG NEB 3 ML VIAL NEB STA (00:11)
--- NOTE | 2024-12-24 00:25 | Emergency Department Note ---
Impression & Plan SOB (shortness of breath), Hypoxia ED Provider Note NAME: EVELINA HUGHES AGE: 69 SEX: Male INFORMANT: Patient and family ED PROVIDER(S): Kb Hamilton MD CHIEF COMPLAINT: Shortness of breath PLAN: Disposition: Admitted Outpatient prescription management: none Referral: None MEDICAL DECISION MAKING: Patient presented because of shortness of breath. He was initially resistant to workup options. Discussion was made and patient then was in agreement. X-ray imaging was performed and actually looked improved although he did some increased parenchymal markings. His BNP was elevated and no prior for comparison. Patient did have a bump in his baseline creatinine consistent with mild AVE. Patient has had problems with AVE in the past. His CBC shows a stable anemia. No leukocytosis. Patient does have elevated LFTs which are similar to prior. He was given a DuoNeb. Patient was adamantly refusing CT imaging. He did note some improvement after DuoNeb. Patient will need further evaluation and management in the hospital given his AVE and new oxygen requirement. Discussed with patient and family. Family did help convince the patient to cooperate with treatment. Consultation was made with Dr. Ruth of the [facility] service. Case discussed and diagnostics were reviewed. Patient was evaluated in the ER for further management. Care/management discussed with: sub plant manager, hospitalist Level of care consideration(s): After review of the information above and other included data, I feel the patient requires escalation of care to admission Triage Nursing notes: reviewed and agree them. Vital Signs: reviewed and remarkable for hypoxia Additional History obtained from: Family Chronic Medical/Social Conditions affecting care: Cancer Prior/ Outside/ External records reviewed: none Differential Diagnosis: Reactive airway disease, pneumonia, pneumothorax, COPD, CHF, infections, cardiac ischemia, pulmonary embolism, musculoskeletal, gastrointestinal, as well as other pathologies. Diagnostics, independently interpreted by me: ECG: Twelve-lead ECG reveals normal sinus rhythm at 77 bpm. Left atrial enlargement. Right bundle branch block. When compared to ECG of 15 July 2024 there is no change. Cardiac Monitoring: Cardiac monitoring ordered by me: The patient was placed on continuous cardiac monitoring and observed. It revealed a normal sinus rhythm at 79 beats per minute without ectopy or evidence of dysrhythmia. Medical decision rules: none Imaging studies: Chest x-ray reveals increased parenchymal markings however when compared to prior there is improvement in the right basilar findings. HPI: 69 year old Male arrives for evaluation of shortness of breath. This started slightly a few days ago and is significantly worse tonight. The patient also notes the following associated symptoms, feeling gassy, and weak. The patient has found no relieving factors. Current pain is rated as 1/10. Patient has a history of lung and liver cancer. He is on chemotherapy. Pt denies LOC, headache, fevers, chills, diaphoresis, visual changes, neck pain, chest pain, nausea, vomiting, abdominal pain, back pain, urinary symptoms, numbness, weakness,or other complaints.. PAST MEDICAL HISTORY: See Below, lung cancer, liver cancer PAST SURGICAL HISTORY: See Below, SOCIAL HISTORY: See Below, former smoker HOME MEDICATIONS: See Below ALLERGIES: See Below VITALS: See Below PHYSICAL EXAMINATION: GENERAL: Awake, alert, dyspneic-appearing, in no distress HENT: Normocephalic, atraumatic. Oropharynx unremarkable. EYES: Normal conjunctiva. Sclera non-icteric. NECK: Inspection normal. Non-tender. Supple. No nuchal rigidity. FROM. No masses. RESPIRATORY: Clear to auscultation. No wheezes. No rales. Increased respiratory effort. CARDIAC: Normal rate. Normal rhythm. No murmurs. No rubs. Extremities warm and well perfused. Pulses equal. No JVD. GI: Soft, non-distended. No tenderness to palpation. No rebound or guarding. No masses. RECTAL: Deferred. MUSCULOSKELETAL: Atraumatic. Chest examination reveals no tenderness. The back is symmetrical on inspection without obvious abnormality. There is no CVA tenderness to palpation. No joint edema. LOWER EXTREMITIES: Calves are equal size bilaterally and non-tender. Trace edema. No discoloration. NEURO: Normal sensorium. No sensory or motor deficits noted. SKIN: No rash or jaundice noted. 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), mediastinal Lung mass Chronic bronchitis COPD with emphysema Pulmonary hypertension Metastatic primary lung cancer (Acute) Diabetes Osteoarthritis Chronic Kidney Disease Hyperlipidemia BPH (benign prostatic hyperplasia) Hypertension Medical History Bacterial endocarditis Infective endocarditis of mitral valve Acute renal failure Sepsis Acute kidney injury Tobacco dependence due to cigarettes Full thickness rotator cuff tear History of COVID-2019, mild symptoms Surgical History S/P arthroscopy of left shoulder History of arthroscopy of right shoulder 18 years ago History of colonoscopy Hx of LASIK bilateral Family History Son Kidney disease Mother Cancer Brother Cancer oral Social History Smoking Status: Former smoker Tobacco Type: Cigarettes Age Started Using Tobacco: 9; Age Quit Using Tobacco: 69; packs per day: 1.5; Cigarettes Per Day: 30; Second Hand Exposure: Yes (childhood); Do You Dip or Chew Tobacco: No; Hx Alcohol Use: No Hx Substance Use: No Preferred Language: Kyrgyz Communication Ability: Effective Visual Impairment: Partially Limited Hearing Ability: Normal Bag Worker Required: No Beliefs That Will Affect Care: None marital status: marital status details: but still living together Current Living Situation: Spouse current occupational status: retired How many Children do You have: 2 Other Information That Helps Us Care for You: No Feels Safe at Home: Yes Safety Concerns: Feels Safe At This Time Childhood Exposure to Second-Hand Smoke: Yes Diet: regular caffeine: Yes Dental Care, Regularly: Yes Physical Activity Frequency: Other Physical Activity Frequency Comment: Outside work Seatbelt Use: sometimes Sunscreen Use: Yes Assistive Devices: Cane Allergies Allergies Allergy/AdvReac Type Severity Reaction Status Date / Time lactose AdvReac Gastrointestinal Verified 12/24/24 10:01 Upset Home Meds Home Medications Medication Instructions Recorded Confirmed lansoprazole 30 mg capsule,delayed 30 mg PO QAM heart burn 07/12/24 12/24/24 release allopurinol 100 mg tablet 100 mg PO QAM 10/28/24 12/24/24 sildenafil (pulm.hypertension) 20 20 mg PO 3XWK 12/01/24 12/24/24 mg tablet (Revatio) trazodone 50 mg tablet 50 mg PO HS PRN Sleep 12/01/24 12/24/24 simethicone 250 mg capsule (Gas-X) 250 mg PO DAILY PRN Abdominal 12/21/24 12/24/24 Discomfort acetaminophen 500 mg tablet 500 mg PO Q6H PRN Pain 12/24/24 12/24/24 (Tylenol Extra Strength) carvedilol 25 mg tablet 25 mg PO AMHS 12/24/24 12/24/24 finasteride 5 mg tablet 5 mg PO QAM 12/24/24 12/24/24 magnesium oxide 400 mg (241.3 mg 400 mg PO BID 12/24/24 12/24/24 magnesium) tablet vitamin B complex-vitamin C-folic 1 tab PO DAILY 12/24/24 12/24/24 acid 0.8 mg tablet (Aurelia-Mora) Previous Rx's Medication Instructions Recorded betamethasone dipropionate 0.05 % 1 applic topical BID PRN skin 08/03/21 topical cream irritation #45 grams triamcinolone acetonide 0.1 % 1 applic topical BID PRN Dry 08/03/21 topical cream scaling areas #15 grams blood-glucose meter (OneTouch #1 ea 07/21/24 Verio Flex Start kit) blood-glucose meter (OneTouch #1 ea 07/22/24 Verio Flex Start kit) rosuvastatin 10 mg tablet 10 mg PO QPM #90 tabs 07/22/24 amlodipine 5 mg tablet (Norvasc) 5 mg PO QAM #30 tabs 08/03/24 Results & Data (ED) Vital Signs Vital Signs - 24 hr 12/23/24 23:55 12/24/24 00:42 12/24/24 00:43 Pulse Rate 79 Pulse Rate [Apical] 80 Pulse Rate from SpO2 Sensor Respiratory Rate 20 Blood Pressure Blood Pressure [Right Arm] 117/72 Blood Pressure Mean Blood Pressure Mean [Right Arm] 87 Blood Pressure Position [Right Arm] Sitting Pulse Oximetry 93 94 Oxygen Delivery Method Nasal Cannula Nasal Cannula Oxygen Flow Rate 2 2 Oxygen Flow Rate - Titration Pulse Oximetry Post Tiitration 12/24/24 01:59 12/24/24 02:00 12/24/24 03:30 Pulse Rate 79 Pulse Rate [Apical] 82 Pulse Rate from SpO2 Sensor 79 Respiratory Rate 18 20 Blood Pressure 127/55 L Blood Pressure [Right Arm] 128/62 Blood Pressure Mean 79 Blood Pressure Mean [Right Arm] 84 Blood Pressure Position [Right Arm] Semi-fowlers Pulse Oximetry 90 94 95 Oxygen Delivery Method Nasal Cannula Nasal Cannula Nasal Cannula Oxygen Flow Rate 2 3 3 Oxygen Flow Rate - Titration 3 Pulse Oximetry Post Tiitration 92 12/24/24 04:03 12/24/24 04:09 Pulse Rate 80 83 Pulse Rate [Apical] Pulse Rate from SpO2 Sensor 76 Respiratory Rate 17 Blood Pressure 106/58 L Blood Pressure [Right Arm] Blood Pressure Mean 74 Blood Pressure Mean [Right Arm] Blood Pressure Position [Right Arm] Pulse Oximetry 93 Oxygen Delivery Method Nasal Cannula Oxygen Flow Rate 3 Oxygen Flow Rate - Titration Pulse Oximetry Post Tiitration Laboratory Data 12/24/24 00:40 12/24/24 08:55 Lab Results 12/24/24 12/24/24 12/24/24 Range/Units 00:40 01:17 02:00 WBC 10.30 (4.8-10.8) K/ul RBC 3.23 L (4.70-6.10) M/uL Hgb 10.1 L (14.0-18.0) g/dl Hct 30.6 L (42.0-52.0) % MCV 94.7 (80.0-100.0) fL MCH 31.3 (25.0-34.0) pg MCHC 33.0 (32.0-36.0) g/dL RDW Std Deviation 53.8 H (36.4-46.3) fL RDW Coeff of [place] 15.7 H (11.5-14.5) % Plt Count 168 (130-400) K/uL MPV 10.8 (9.4-12.4) fL Immature Gran % (Auto) 0.6 % Neut % (Auto) 91.8 % Lymph % (Auto) 4.7 % [place] % (Auto) 2.4 % Eos % (Auto) 0.3 % Baso % (Auto) 0.2 % Neut # (Auto) 9.46 H (1.40-6.50) K/uL Lymph # (Auto) 0.48 L (1.20-3.40) K/uL [place] # (Auto) 0.25 (0.11-0.59) K/uL Eos # (Auto) 0.03 (0.00-0.50) K/uL Baso # (Auto) 0.02 (0.00-0.20) K/uL Immature Gran # (Auto) 0.06 (0.01-0.20) K/uL RBC Morphology Unremarkable PT 10.4 (9.0-12.0) Seconds INR 1.0 (0.9-1.1) VBG pH 7.39 (7.36-7.41) VBG pCO2 34 L (38-50) mmHg VBG pO2 65 mmHg VBG HCO3 21 mmol/L VBG O2 Saturation 94.4 % VBG Base Excess -3.6 mEq/L Sodium 140 (136-145) mmol/L Potassium 4.8 (3.5-5.1) mmol/L Chloride 109 H (98-107) mmol/L Carbon Dioxide 22 (21-32) mmol/L Anion Gap 9 (3-11) BUN 80 H (6-23) mg/dl Creatinine 2.78 H (0.6-1.4) mg/dl Est Cr Clr Drug Dosing 23.9 ml/min eGFR 23.74 BUN/Creatinine Ratio 28.8 H (10-20) Glucose 145 H (70-99(Fasting)) mg/dl Calcium 8.0 L (8.6-10.3) mg/dl Magnesium 2.5 H (1.7-2.4) mg/dl Total Bilirubin 0.7 (0.2-1.0) mg/dl AST 205 H (13-39) U/L ALT 233 H (7-52) U/L Alkaline Phosphatase 339 H (34-104) U/L Troponin I High Sens 29.4 H (0-20) pg/ml B-Natriuretic Peptide 504 H (0-100) pg/ml Total Protein 5.5 L (6.0-8.3) gm/dl Albumin 3.0 L (3.4-5.0) gm/dl Globulin 2.5 (2.5-4.0) gm/dl Albumin/Globulin Ratio 1.2 (0.9-2) Urine Color Yellow Urine Appearance Clear (Clear) Urine pH 5.0 (4.5-7.5) Ur Specific [place] 1.016 (1.000-1.030) Urine Protein 2+ H (Negative) Urine Glucose (UA) Negative (Negative) Urine Ketones Negative (Negative) Urine Blood Negative (Negative) Urine Nitrite Negative (Negative) Urine Bilirubin Negative (Negative) Urine Urobilinogen Negative (Negative) Ur Leukocyte Esterase Negative (Negative) Urine WBC (Auto) 0-5 (0-5) /hpf Urine RBC (Auto) 0-2 (0-2) /hpf U Hyaline Cast (Auto) 0-2 (0-2) /lpf U Epithel Cells (Auto) 0-2 (0-2) /hpf Urine Bacteria (Auto) None Seen (None Seen) Urine Comment Adenovirus (PCR) Not Detected (NotDetected) B. pertussis DNA (PCR) Not Detected (NotDetected) B.parapertussis DNA PCR Not Detected (NotDetected) C. pneumoniae DNA (PCR) Not Detected (NotDetected) Coronavirus OC43 (PCR) Not Detected (NotDetected) Coronavirus HKU1 (PCR) Not Detected (NotDetected) Coronavirus 229E (PCR) Not Detected (NotDetected) SARS-CoV-2 (PCR) Not Detected (NotDetected) Coronavirus NL63 (PCR) Not Detected (NotDetected) Human Metapneumovir PCR Not Detected (NotDetected) Influenza Type A (PCR) Not Detected (NotDetected) Influenza Type B (PCR) Not Detected (NotDetected) M. pneumoniae (PCR) Not Detected (NotDetected) Parainfluenza 1 (PCR) Not Detected (NotDetected) Parainfluenza 2 (PCR) Not Detected (NotDetected) Parainfluenza 3 (PCR) Not Detected (NotDetected) Parainfluenza 4 (PCR) Not Detected (NotDetected) RSV (PCR) Not Detected (NotDetected) Entero/Rhino (PCR) Not Detected (NotDetected) 12/24/24 Range/Units 02:55 WBC (4.8-10.8) K/ul RBC (4.70-6.10) M/uL Hgb (14.0-18.0) g/dl Hct (42.0-52.0) % MCV (80.0-100.0) fL MCH (25.0-34.0) pg MCHC (32.0-36.0) g/dL RDW Std Deviation (36.4-46.3) fL RDW Coeff of [place] (11.5-14.5) % Plt Count (130-400) K/uL MPV (9.4-12.4) fL Immature Gran % (Auto) % Neut % (Auto) % Lymph % (Auto) % [place] % (Auto) % Eos % (Auto) % Baso % (Auto) % Neut # (Auto) (1.40-6.50) K/uL Lymph # (Auto) (1.20-3.40) K/uL [place] # (Auto) (0.11-0.59) K/uL Eos # (Auto) (0.00-0.50) K/uL Baso # (Auto) (0.00-0.20) K/uL Immature Gran # (Auto) (0.01-0.20) K/uL RBC Morphology PT (9.0-12.0) Seconds INR (0.9-1.1) VBG pH (7.36-7.41) VBG pCO2 (38-50) mmHg VBG pO2 mmHg VBG HCO3 mmol/L VBG O2 Saturation % VBG Base Excess mEq/L Sodium (136-145) mmol/L Potassium (3.5-5.1) mmol/L Chloride (98-107) mmol/L Carbon Dioxide (21-32) mmol/L Anion Gap (3-11) BUN (6-23) mg/dl Creatinine (0.6-1.4) mg/dl Est Cr Clr Drug Dosing ml/min eGFR BUN/Creatinine Ratio (10-20) Glucose (70-99(Fasting)) mg/dl Calcium (8.6-10.3) mg/dl Magnesium (1.7-2.4) mg/dl Total Bilirubin (0.2-1.0) mg/dl AST (13-39) U/L ALT (7-52) U/L Alkaline Phosphatase (34-104) U/L Troponin I High Sens 27.5 H (0-20) pg/ml B-Natriuretic Peptide (0-100) pg/ml Total Protein (6.0-8.3) gm/dl Albumin (3.4-5.0) gm/dl Globulin (2.5-4.0) gm/dl Albumin/Globulin Ratio (0.9-2) Urine Color Urine Appearance (Clear) Urine pH (4.5-7.5) Ur Specific [place] (1.000-1.030) Urine Protein (Negative) Urine Glucose (UA) (Negative) Urine Ketones (Negative) Urine Blood (Negative) Urine Nitrite (Negative) Urine Bilirubin (Negative) Urine Urobilinogen (Negative) Ur Leukocyte Esterase (Negative) Urine WBC (Auto) (0-5) /hpf Urine RBC (Auto) (0-2) /hpf U Hyaline Cast (Auto) (0-2) /lpf U Epithel Cells (Auto) (0-2) /hpf Urine Bacteria (Auto) (None Seen) Urine Comment Adenovirus (PCR) (NotDetected) B. pertussis DNA (PCR) (NotDetected) B.parapertussis DNA PCR (NotDetected) C. pneumoniae DNA (PCR) (NotDetected) Coronavirus OC43 (PCR) (NotDetected) Coronavirus HKU1 (PCR) (NotDetected) Coronavirus 229E (PCR) (NotDetected) SARS-CoV-2 (PCR) (NotDetected) Coronavirus NL63 (PCR) (NotDetected) Human Metapneumovir PCR (NotDetected) Influenza Type A (PCR) (NotDetected) Influenza Type B (PCR) (NotDetected) M. pneumoniae (PCR) (NotDetected) Parainfluenza 1 (PCR) (NotDetected) Parainfluenza 2 (PCR) (NotDetected) Parainfluenza 3 (PCR) (NotDetected) Parainfluenza 4 (PCR) (NotDetected) RSV (PCR) (NotDetected) Entero/Rhino (PCR) (NotDetected) Administered Medications Albuterol (Albut/Ipratrop 3mg/0.5mg Neb 3 Ml Vial) 3 ml NEB QIDR [facility]; Protocol Stop: 01/23/25 07:35 Last Admin: 12/24/24 23:32 Dose: 3 ml Documented By: Admin: 12/24/24 18:28 Dose: 3 ml Documented By: Admin: 12/24/24 15:36 Dose: 3 ml Documented By: Admin: 12/24/24 10:08 Dose: 3 ml Documented By: Admin: 12/24/24 07:52 Dose: 3 ml Documented By: SASHA Allopurinol (Allopurinol 100 Mg Tab) 100 mg PO QAM [facility] Stop: 01/23/25 08:59 Last Admin: 12/24/24 08:32 Dose: 100 mg Documented By: SASHA Amlodipine Besylate (A[facility]odipine Besylate 5 Mg Tab) [facility] [place]: 01/23/25 08:59 Last Admin: 12/24/24 08:32 Dose: 5 mg Documented By: SASHA Carvedilol (Carvedilol 25 Mg Tab) [facility] [place]: 01/23/25 07:59 Last Admin: 12/24/24 16:18 Dose: 25 mg Documented By: Admin: 12/24/24 08:31 Dose: 25 mg Documented By: SASHA Finasteride (Finasteride 5 Mg Tab) [facility] [place]: 01/23/25 08:59 Last Admin: 12/24/24 08:32 Dose: 5 mg Documented By: SASHA Heparin Sodium (Porcine) (Heparin Sod 5,000 Unit/0.5 Ml Vial) 5,000 units SQ Q12 [facility] Stop: 01/23/25 08:59 Last Admin: 12/24/24 19:46 Dose: Not Given Documented By: Admin: 12/24/24 08:46 Dose: 5,000 units Documented By: SASHA Lactated Ringer's (Lr) 1,000 mls @ 80 mls/hr IV .[id number] [facility] Stop: 12/25/24 02:29 Last Admin: 12/24/24 15:43 Dose: 80 mls/hr Documented By: AYDE Magnesium Oxide (Magnesium Oxide 400 Mg Tab) 400 mg PO BID [facility] Stop: 01/23/25 08:59 Last Admin: 12/24/24 19:46 Dose: 400 mg Documented By: Admin: 12/24/24 08:32 Dose: 400 mg Documented By: SASHA Pantoprazole Sodium (Pantoprazole 40 Mg Tab) [facility] [place] 01/23/25 08:59 Last Admin: 12/24/24 08:32 Dose: 40 mg Documented By: SASHA Rosuvastatin Calcium (Rosuvastatin Calcium 10 Mg Tab) 10 mg PO QPM [facility] Stop: 01/23/25 20:59 Last Admin: 12/24/24 19:46 Dose: 10 mg Documented By: KATI Senna/Docusate Sodium (Docusate Sodium/Senna 50/8.6mg Tab) 1 tab PO QAM [facility] Stop: 01/23/25 13:44 Last Admin: 12/24/24 15:43 Dose: 1 tab Documented By: AYDE Trazodone HCl (Trazodone Hcl 50 Mg Tab) 50 mg PO HS PRN PRN Reason: Sleep Stop: 01/23/25 07:35 Last Admin: 12/24/24 20:58 Dose: 50 mg Documented By: KATI Discontinued Medications Albuterol (Albut/Ipratrop 3mg/0.5mg Neb 3 Ml Vial) 3 ml NEB NOW STA; Protocol Stop: 12/24/24 00:00 Last Admin: 12/24/24 00:11 Dose: 3 ml Documented By: EMB Discharge Plan Visit Data Chief Complaint: Shortness of Breath/Dyspnea Stated Complaint: DIFFICULTY BREATHING ED Provider: Kb Hamilton Discharge Problem: SOB (shortness of breath), Hypoxia Patient Disposition: Admitted As Inpatient Condition: Fair Discharge Instructions Interventions: ED Discharge Assessment Last Done: 12/24/24 07:36
[2024-12-24 00:55] LABS: Hematocrit (blood only) 30.6 % (42.0-52.0); Hemoglobin 10.1 g/dl (14.0-18.0); Mean Corpuscular Hemoglobin 31.3 pg (25.0-34.0); Mean Corpuscular Volume 94.7 fL (80.0-100.0); Mean Platelet Volume 10.8 fL (9.4-12.4); Platelet Count 168 K/uL (130-400); RDW Coefficient of Variation 15.7 % (11.5-14.5); RDW Standard Deviation 53.8 fL (36.4-46.3); Red Blood Count 3.23 M/uL (4.70-6.10)
[2024-12-24 01:15] LABS: Basophils # (auto) 0.02 K/uL (0.00-0.20); Basophils % (auto) 0.2 %; Eosinophils # (auto) 0.03 K/uL (0.00-0.50); Eosinophils % (auto) 0.3 %; Immature Granulocytes # (auto) 0.06 K/uL (0.01-0.20); Immature Granulocytes % (auto) 0.6 %; Lymphocytes # (auto) 0.48 K/uL (1.20-3.40); Lymphocytes % (auto) 4.7 %; Monocytes # (auto) 0.25 K/uL (0.11-0.59); Monocytes % (auto) 2.4 %; Neutrophils # (auto) 9.46 K/uL (1.40-6.50); Neutrophils % (auto) 91.8 %; RBC Morphology Unremarkable
[2024-12-24 01:25] LABS: Albumin Globulin Ratio 1.2 (0.9-2); BUN Creatinine Ratio 28.8 (10-20); Bilirubin,Total 0.7 mg/dl (0.2-1.0); Creatinine Clr Calc Pharmacy 23.9 ml/min; Globulin 2.5 gm/dl (2.5-4.0); Magnesium 2.5 mg/dl (1.7-2.4); Potassium 4.8 mmol/L (3.5-5.1); Total Protein 5.5 gm/dl (6.0-8.3); Troponin I High Sensitivity 29.4 pg/ml (0-20)
--- NOTE | 2024-12-24 01:26 | XRay Report ---
EXAM: XR chest 1V portable CLINICAL HISTORY: Dyspnea. TECHNIQUE: An X-ray image of the chest is obtained in AP projection. COMPARISON: 07/25/2024 CR. FINDINGS: Pulmonary Parenchyma: Left mid and lower zone faint opacity. Congestive pulmonary changes. No significant pleural effusion or thickening. Heart and Mediastinum: Mild apparent cardiomegaly, which could be exaggerated due to AP projection. Prominent atherosclerotic aortic knuckle. No mediastinal masses. Bony Thorax: Degenerative changes of the visualized skeleton. Soft Tissues: Soft tissues overlying the chest wall are unremarkable. IMPRESSION: 1. Compared to the previous interval, removal of the PermCath. 2. Previously noted left-sided effusion and prominent bilateral hilum show interval improvement. Electronically signed by Blake Marlow 12-24-2024 01:25 AM
[2024-12-24 01:27] LABS: Prothrombin Time 10.4 Seconds (9.0-12.0)
[2024-12-24 01:53] LABS: Adenovirus PCR Not Detected (NotDetected); Bordetella parapertussis PCR Not Detected (NotDetected); Bordetella pertussis PCR Not Detected (NotDetected); Chlamydia pneumoniae PCR Not Detected (NotDetected); Coronavirus 229E PCR Not Detected (NotDetected); Coronavirus CoV-2 (COVID19)PCR Not Detected (NotDetected); Coronavirus HKU1 PCR Not Detected (NotDetected); Coronavirus NL63 PCR Not Detected (NotDetected); Coronavirus OC43PCR Not Detected (NotDetected); Human Metapneumovirus PCR Not Detected (NotDetected); Influenza A PCR Not Detected (NotDetected); Influenza B PCR Not Detected (NotDetected); Mycoplasma pneumoniae PCR Not Detected (NotDetected); Parainfluenza Virus 1 PCR Not Detected (NotDetected); Parainfluenza Virus 2 PCR Not Detected (NotDetected); Parainfluenza Virus 3 PCR Not Detected (NotDetected); Parainfluenza Virus 4 PCR Not Detected (NotDetected); Respiratory Syncytial VirusPCR Not Detected (NotDetected); Rhinovirus/Enterovirus PCR Not Detected (NotDetected)
[2024-12-24 02:19] LABS: Base Excess VBG -3.6 mEq/L; HCO3 VBG 21 mmol/L; Oxygen Saturation VBG 94.4 %; PCO2 VBG 34 mmHg (38-50); PO2 VBG 65 mmHg; pH VBG 7.39 (7.36-7.41)
[2024-12-24 02:21] LABS: Appearance Urine Clear (Clear); Bacteria Urine Automated None Seen (None Seen); Bilirubin Urine Negative (Negative); Blood Urine Negative (Negative); Cast Urine Automated 0-2 /lpf (0-2); Color Urine Yellow; Epithelial Cell Urine Auto 0-2 /hpf (0-2); Glucose Urine UA Negative (Negative); Ketones Urine Negative (Negative); Leukocyte Esterase Urine Negative (Negative); Nitrite Urine Negative (Negative); Protein Urine 2+ (Negative); RBC Urine Automated 0-2 /hpf (0-2); Specific Gravity Urine 1.016 (1.000-1.030); Urobilinogen Urine Negative (Negative); WBC Urine Automated 0-5 /hpf (0-5)
--- NOTE | 2024-12-24 03:28 | History & Physical Report ---
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 He feels much improved after being placed on supplemental O2 and receiving a DuoNeb treatment. He states that he knows he has "bad cancer" and wants to minimize his time in the hospital. He is agreeable to stay temporarily, receive nebulizer treatments, and have home O2 arranged for discharge. He denies chest pains. He has abdominal bloating and some right sided abdominal pain likely from increased hepatomegaly and liver metastases. He is admitted for acute respiratory failure with hypoxemia in the setting of metastatic lung cancer #Metastatic small cell lung cancer/acute respiratory failure with hypoxemia/COPD -patient currently on new chemotherapy for the last week. He knows he has extensive disease and that his condition is with a very poor prognosis. He feels better after DuoNeb treatment and supplemental O2 and does not want much further treatment beyond this in the hospital - Continue supplemental O2 and do two-step walk test prior to discharge - Continue DuoNebs 4 times daily and please arrange for nebulizer treatment at home after discharge - Consult his oncologist-he would like to speak with her while he is in the hospital regarding his condition #HTN/HLD-BPs mildly elevated - Continue home amlodipine, carvedilol - Continue rosuvastatin #AVE on CKD stage III/IV-creatinine elevated above baseline at 2.78. He previously required dialysis a few months ago temporarily. Follows with nephrology. He reports he has been taking p.o. without nausea or vomiting. His BNP was elevated at 500 and troponin minimally elevated at 29 down to 27 on recheck. ECG without ischemic changes. IV fluids not given due to concerns for possible CHF although he does not appear volume overloaded on exam - Follow BMP and if creatinine remains elevated, consider small amounts of IV fluid #Anemia of chronic disease-hemoglobin low but stable from previous at 10.1, likely secondary to anemia of chronic disease and from antineoplastic therapy - Follow CBC #GERD-no acute issues - Continue lansoprazole DVT prophylaxis-heparin SQ Disposition-admit to medical floor with telemetry but suspect short stay. 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 He feels much improved after being placed on supplemental O2 and receiving a DuoNeb treatment. He states that he knows he has "bad cancer" and wants to minimize his time in the hospital. He is agreeable to stay temporarily, receive nebulizer treatments, and have home O2 arranged for discharge. He denies chest pains. He has abdominal bloating and some right sided abdominal pain likely from increased hepatomegaly and liver metastases. He denies any fevers or chills. He is admitted for acute respiratory failure with hypoxemia in the setting of metastatic lung cancer Allergies Allergy/AdvReac Type Severity Reaction Status Date / Time No Known Allergies Allergy Verified 12/21/24 07:56 Home Medications Medication Instructions Recorded Confirmed Type betamethasone dipropionate 0.05 % 1 applic topical BID PRN skin 08/03/21 12/24/24 Rx topical cream irritation #45 grams triamcinolone acetonide 0.1 % 1 applic topical BID PRN Dry 08/03/21 12/24/24 Rx topical cream scaling areas #15 grams lansoprazole 30 mg capsule,delayed 30 mg PO QAM heart burn 07/12/24 12/24/24 History release blood-glucose meter (OneTouch #1 ea 07/21/24 12/24/24 Rx Verio Flex Start kit) blood-glucose meter (OneTouch #1 ea 07/22/24 12/24/24 Rx Verio Flex Start kit) rosuvastatin 10 mg tablet 10 mg PO QPM #90 tabs 07/22/24 12/24/24 Rx amlodipine 5 mg tablet (Norvasc) 5 mg PO QAM #30 tabs 08/03/24 12/24/24 Rx allopurinol 100 mg tablet 100 mg PO QAM 10/28/24 12/24/24 History sildenafil (pulm.hypertension) 20 20 mg PO 3XWK 12/01/24 12/24/24 History mg tablet (Revatio) trazodone 50 mg tablet 50 mg PO HS PRN Sleep 12/01/24 12/24/24 History simethicone 250 mg capsule (Gas-X) 250 mg PO DAILY PRN Abdominal 12/21/24 0 12/24/24 History Discomfort acetaminophen 500 mg tablet 500 mg PO Q6H PRN Pain 12/24/24 12/24/24 History (Tylenol Extra Strength) carvedilol 25 mg tablet 25 mg PO AMHS 12/24/24 12/24/24 History finasteride 5 mg tablet 5 mg PO QAM 12/24/24 12/24/24 History magnesium oxide 400 mg (241.3 mg 400 mg PO BID 12/24/24 12/24/24 History magnesium) tablet vitamin B complex-vitamin C-folic 1 tab PO DAILY 12/24/24 12/24/24 History acid 0.8 mg tablet (Aurelia-Mora) Past Med/Surg History Problem List Hypoxia (Acute) SOB (shortness of breath) (Acute) Anemia Tumor lysis syndrome Small cell lung cancer (Chronic 07/13/24) Lesion of lung Metastasis to liver LAD (lymphadenopathy), mediastinal Lung mass Chronic bronchitis COPD with emphysema Pulmonary hypertension Metastatic primary lung cancer (Acute) Diabetes Osteoarthritis Chronic Kidney Disease Hyperlipidemia BPH (benign prostatic hyperplasia) Hypertension Medical History Bacterial endocarditis Infective endocarditis of mitral valve Acute renal failure Sepsis Acute kidney injury Tobacco dependence due to cigarettes Full thickness rotator cuff tear History of 2019, mild symptoms Surgical History S/P arthroscopy of left shoulder History of arthroscopy of right shoulder 18 years ago History of colonoscopy Hx of LASIK bilateral Family History Son Kidney disease Mother Cancer Brother Cancer oral Social History Smoking Status: Former smoker Tobacco Type: Cigarettes Age Started Using Tobacco: 9; Age Quit Using Tobacco: 69; packs per day: 1.5; Cigarettes Per Day: 30; Second Hand Exposure: Yes (childhood); Do You Dip or Chew Tobacco: No; Hx Alcohol Use: No Hx Substance Use: No Preferred Language: Yakut Communication Ability: Effective Visual Impairment: Partially Limited Hearing Ability: Normal Tip Length Checker Required: No Beliefs That Will Affect Care: None marital status: marital status details: but still living together Current Living Situation: Spouse current occupational status: retired How many Children do You have: 2 Feels Safe at Home: Yes Childhood Exposure to Second-Hand Smoke: Yes Diet: regular caffeine: Yes Dental Care, Regularly: Yes Physical Activity Frequency: Other Physical Activity Frequency Comment: Outside work Seatbelt Use: sometimes Sunscreen Use: Yes Assistive Devices: Cane Review of Systems Review of Systems: All systems reviewed & are unremarkable except as noted in HPI & below Physical Exam Constitutional: WD/WN, vitals as above Neck: trachea midline, no thyromegaly Respiratory: normal respiratory effort; no cough Auscultation: + diminished lung sounds (At bases bilaterally); no crackles, no rhonchi and no wheezes Cardiovascular: Rate/Rhythm: regular rate and regular rhythm Heart Sounds: + murmur (2/6 holosystolic murmur at left upper sternal border) Chest (Breasts): Chest: normal inspection of chest Gastrointestinal (Abdomen): normal bowel sounds, soft, nontender, no hepatosplenomegaly Musculoskeletal: Extremities: extremities normal to inspection; no cyanosis and no clubbing Skin: no rashes, warm and dry Neurologic: moves all extremities and awake; no focal motor deficits Psychiatric: A+Ox3, euthymic affect Lymphatic: no lymphedema Results & Data Results & Data Vital Signs (Past 12 Hours) Vital Signs Temp Pulse Pulse Resp BP BP Pulse Ox 12/24/24 02:00 82 18 128/62 94 12/24/24 01:59 90 12/24/24 00:43 80 20 117/72 94 12/24/24 00:42 93 12/23/24 23:55 79 12/23/24 23:28 85 L 12/23/24 23:28 36.8 C 87 26 H 110/63 85 L O2 Del Method O2 Flow Rate 12/24/24 02:00 Nasal Cannula 3 12/24/24 01:59 Nasal Cannula 2 12/24/24 00:43 Nasal Cannula 2 12/24/24 00:42 Nasal Cannula 2 12/23/24 23:55 12/23/24 23:28 Nasal Cannula 0 12/23/24 23:28 Room Air Laboratory Results CBC, CMP PT/INR, VBG, BNP, troponin, UA, respiratory bio fire panel reviewed Diagnostic Findings Chest x-ray image personally reviewed by me and agree with the following report: Chest X-Ray 12/23/24 23:35 EXAM: XR chest 1V portable CLINICAL HISTORY: Dyspnea. TECHNIQUE: An X-ray image of the chest is obtained in AP projection. COMPARISON: 07/25/2024 CR. FINDINGS: Pulmonary Parenchyma: Left mid and lower zone faint opacity. Congestive pulmonary changes. No significant pleural effusion or thickening. Heart and Mediastinum: Mild apparent cardiomegaly, which could be exaggerated due to AP projection. Prominent atherosclerotic aortic knuckle. No mediastinal masses. Bony Thorax: Degenerative changes of the visualized skeleton. Soft Tissues: Soft tissues overlying the chest wall are unremarkable. IMPRESSION: 1. Compared to the previous interval, removal of the PermCath. 2. Previously noted left-sided effusion and prominent bilateral hilum show interval improvement. Electronically signed by Blake Marlow 12-24-2024 01:25 AM ECG Additional Comments: ECG on 12/24/2024 at 00 20 with normal sinus rhythm, rate 77, nonspecific intraventricular conduction block, no ischemic changes Code Status & VTE Plan VTE Prophylaxis Plan VTE Prophylaxis will be ordered: Yes PG Care Time/CCT Total # of Minutes Spent Total Time Spent with Patient: Total time spent is greater than 50% in coordination of care (as documented) at patient's floor/unit and/or counseling patient: Coding Level of Care Code 83872 INT INP/OBS CARE 3/75MIN Diagnoses Hypoxia R09.02 SOB (shortness of breath) R06.02 Small cell lung cancer C34.90 COPD with emphysema J43.9
[2024-12-24] MEDS ORDERED: SILDENAFIL CITRATE 20 MG TABLET PO SCH (07:36)
[2024-12-24] MEDS ORDERED: POLYETHYLENE (MIRALAX) 17 GM PACK PO PRN (07:36)
[2024-12-24] MEDS ORDERED: ONDANSETRON INJ 2 MG/ML 2 ML VIAL IV PRN (07:36)
[2024-12-24] MEDS ORDERED: SIMETHICONE 80 MG CHEW PO PRN (07:38)
--- NOTE | 2024-12-24 07:49 | Oncology Consultation ---
Date of Consultation December 24, 2024 Assessment & Plan (1) SOB (shortness of breath): (2) Small cell lung cancer: Plan -Recommend KUB for abdominal bloating to evaluate for constipation. If he has constipation, would recommend aggressive bowel regimen -Based on his most recent CT chest, no evidence of progression of lung disease. If symptoms persist, would have to consider ruling out PE, although current renal function may not allow for CT angiogram. -IV fluids for dehydration with AVE. Will also check uric acid to rule out TLS History of Present Illness Reason for Consultation: Small cell lung cancer Attending Physician: Coy Kapoor DO History of Present Illness 69-year-old pleasant gentleman with history of extensive stage/stage IV small cell lung cancer for which he is s/p 4 cycles of carboplatin/etoposide/atezolizumab followed by maintenance atezolizumab with disease progression. Recently started second line treatment with lurbinectedin on 12/21/2024. Admitted to [facility] with shortness of breath. Also complains of abdominal bloating which has worsened since he started taking oxycodone for right upper quadrant abdominal pain. 12/23/2024 was essentially unremarkable. States that his shortness of breath is a little bit better. Continues to complain of abdominal bloating. Allergies Allergy/AdvReac Type Severity Reaction Status Date / Time lactose AdvReac Gastrointestinal Verified 12/24/24 10:01 Upset Home Medications Medication Instructions Recorded Confirmed Type betamethasone dipropionate 0.05 % 1 applic topical BID PRN skin 08/03/21 12/24/24 Rx topical cream irritation #45 grams triamcinolone acetonide 0.1 % 1 applic topical BID PRN Dry 08/03/21 12/24/24 Rx topical cream scaling areas #15 grams lansoprazole 30 mg capsule,delayed 30 mg PO QAM heart burn 07/12/24 12/24/24 History release blood-glucose meter (OneTouch #1 ea 07/21/24 12/24/24 Rx Verio Flex Start kit) blood-glucose meter (OneTouch #1 ea 07/22/24 12/24/24 Rx Verio Flex Start kit) rosuvastatin 10 mg tablet 10 mg PO QPM #90 tabs 07/22/24 12/24/24 Rx amlodipine 5 mg tablet (Norvasc) 5 mg PO QAM #30 tabs 08/03/24 12/24/24 Rx allopurinol 100 mg tablet 100 mg PO QAM 10/28/24 12/24/24 History sildenafil (pulm.hypertension) 20 20 mg PO 3XWK 12/01/24 12/24/24 History mg tablet (Revatio) trazodone 50 mg tablet 50 mg PO HS PRN Sleep 12/01/24 12/24/24 History simethicone 250 mg capsule (Gas-X) 250 mg PO DAILY PRN Abdominal 12/21/24 12/24/24 History Discomfort acetaminophen 500 mg tablet 500 mg PO Q6H PRN Pain 12/24/24 12/24/24 History (Tylenol Extra Strength) carvedilol 25 mg tablet 25 mg PO AMHS 12/24/24 12/24/24 History finasteride 5 mg tablet 5 mg PO QAM 12/24/24 12/24/24 History magnesium oxide 400 mg (241.3 mg 400 mg PO BID 12/24/24 12/24/24 History magnesium) tablet vitamin B complex-vitamin C-folic 1 tab PO DAILY 12/24/24 12/24/24 History acid 0.8 mg tablet (Aurelia-Mora) Patient History Medical History Bacterial endocarditis Infective endocarditis of mitral valve Acute renal failure Sepsis Acute kidney injury Tobacco dependence due to cigarettes Full thickness rotator cuff tear History of COVID-2019, mild symptoms Surgical History S/P arthroscopy of left shoulder History of arthroscopy of right shoulder 18 years ago History of colonoscopy Hx of LASIK bilateral Family History Son Kidney disease Mother Cancer Brother Cancer oral Social History Smoking Status: Former smoker Tobacco Type: Cigarettes Age Started Using Tobacco: 9; Age Quit Using Tobacco: 69; packs per day: 1.5; Cigarettes Per Day: 30; Second Hand Exposure: Yes (childhood); Do You Dip or Chew Tobacco: No; Hx Alcohol Use: No Hx Substance Use: No Preferred Language: Uzbek Communication Ability: Effective Visual Impairment: Partially Limited Hearing Ability: Normal Switch Foreman Required: No Beliefs That Will Affect Care: None marital status: marital status details: but still living together Current Living Situation: Spouse current occupational status: retired How many Children do You have: 2 Feels Safe at Home: Yes Childhood Exposure to Second-Hand Smoke: Yes Diet: regular caffeine: Yes Dental Care, Regularly: Yes Physical Activity Frequency: Other Physical Activity Frequency Comment: Outside work Seatbelt Use: sometimes Sunscreen Use: Yes Assistive Devices: Cane Results & Data Vital Signs (Past 12 Hours) Vital Signs Temp Pulse Pulse Resp BP BP Pulse Ox 12/24/24 07:00 81 19 148/62 H 93 12/24/24 06:18 81 17 112/74 95 12/24/24 04:09 83 12/24/24 04:03 80 17 106/58 L 93 12/24/24 03:30 79 20 127/55 L 95 12/24/24 02:00 82 18 128/62 94 12/24/24 01:59 90 12/24/24 00:43 80 20 117/72 94 12/24/24 00:42 93 12/23/24 23:55 79 12/23/24 23:28 85 L 12/23/24 23:28 36.8 C 87 26 H 110/63 85 L O2 Del Method O2 Flow Rate 12/24/24 07:00 Nasal Cannula 2 12/24/24 06:18 Nasal Cannula 3 12/24/24 04:09 12/24/24 04:03 Nasal Cannula 3 12/24/24 03:30 Nasal Cannula 3 12/24/24 02:00 Nasal Cannula 3 12/24/24 01:59 Nasal Cannula 2 12/24/24 00:43 Nasal Cannula 2 12/24/24 00:42 Nasal Cannula 2 12/23/24 23:55 12/23/24 23:28 Nasal Cannula 0 12/23/24 23:28 Room Air
[2024-12-24] MEDS: ALBUT/IPRATROP 3MG/0.5MG NEB 3 ML VIAL NEB SCH (07:52)
[2024-12-24] MEDS: carvediloL 25 MG TAB PO SCH (08:31)
[2024-12-24] MEDS: MAGNESIUM OXIDE 400 MG TAB PO SCH (08:32)
[2024-12-24] MEDS: FINASTERIDE 5 MG TAB PO SCH (08:32)
[2024-12-24] MEDS: amLODIPine BESYLATE 5 MG TAB PO SCH (08:32)
[2024-12-24] MEDS: allopurinoL 100 MG TAB PO SCH (08:32)
[2024-12-24] MEDS: PANTOprazole 40 MG TAB PO SCH (08:32)
[2024-12-24] MEDS: HEPARIN SOD 5,000 UNIT/0.5 ML VIAL SQ SCH (08:46)
[2024-12-24 09:29] LABS: Albumin Globulin Ratio 1.3 (0.9-2); BUN Creatinine Ratio 29.5 (10-20); Bilirubin,Total 0.8 mg/dl (0.2-1.0); Calcium 8.1 mg/dl (8.6-10.3); Creatinine Clr Calc Pharmacy 23.7 ml/min; Globulin 2.4 gm/dl (2.5-4.0); Potassium 4.9 mmol/L (3.5-5.1); Total Protein 5.6 gm/dl (6.0-8.3)
--- NOTE | 2024-12-24 11:11 | Communication Note ---
Date of Service: December 24, 2024 Pt examined this morning at bedside, family present as well. Pt reiterates that he had increased SOB that especially worsened last night prompting him to come in. Albuterol neb improved his symptoms. He is using some oxygen here as well and feels he needs some at home given symptom burden. Exam: Generally well appearing, no acute distress, alert and oriented Lungs relatively clear to auscultation, no wheezing at time of my examination. Heart regular rate and rhythm AHRF secondary to CHF exac vs COPD in the setting of lung cancer with mets - 2 step done this morning; needs 2L oxygen, oxygen requirement so far here very mild - To see oncology today - Labs in the am, pt deferred further imaging at this time but explained if breathing worsens I would strongly advise CT chest and/or echo to further characterize pathology. - Will monitor overnight for symptom burden and any symptom progression -> if worsens with IVF, this would suggest AHRF more due to CHF AVE on CKD - he has needed temporary dialysis in the past - suspect likely to new cancer drug lurbinectedin pt has been on - will do some gentle IVF x1 bag today and recheck Cr tomorrow Constipation - noting significant gas/constipation with recent opioid use - did not tolerate miralax (very crampy) so will try senna/colace daily - if senna does not work, will add on milk of mag to further escalate I personally examined the patient and verified all funes points of history and exam, discussed case, and agree with decision making with Dr Valdivia feelshai constipated vitals noted nad heent nc at mmm breathing unlabored no accessory muscles good effort skin no rashes no pallor or icterus constipation - bowel regimen metastatic CA - ongoing care, appreciate oncology input hypoxia - likely related to CA/probable COPD - supportive care AVE on CKD - likely chemo related, gentle IV fluids, follow DVT proph - heparin SQ Resident Activity Tracking Resident Involvement: Resident Care Provided Care Provided: Adult Hospital Medicine
[2024-12-24 14:39] LABS: Uric Acid 14.4 mg/dl (2.6-7.2)
--- NOTE | 2024-12-24 15:00 | XRay Report ---
KUB HISTORY: constipation COMPARISON STUDY: 07/20/2024 FINDINGS: There is mild to moderate retained stool. No bowel obstruction seen. No gross free air. The re are atherosclerotic calcifications at the splenic artery. IMPRESSION: No acute findings. ACT 112: Negative or not required by law. The above report was generated using voice recognition software. It may contain grammatical, syntax o r spelling errors. Electronically signed by: Julito Nguyen M.D. 12/24/2024 2:58 PM
[2024-12-24] MEDS: LACTATED RINGER'S 1,000 ML IV SCH (15:43)
[2024-12-24] MEDS: DOCUSATE SODIUM/SENNA 50/8.6MG TAB PO SCH (15:43)
[2024-12-24] MEDS: ROSUVASTATIN CALCIUM 10 MG TAB PO SCH (19:46)
[2024-12-24] MEDS: traZODone HCL 50 MG TAB PO PRN (20:58)
--- NOTE | 2024-12-25 06:15 | Electrocardiogram Report ---
Test Reason : Blood Pressure : */* mmHG Vent. Rate : 77 BPM Atrial Rate : 77 BPM P-R Int : 122 ms QRS Dur : 156 ms QT Int : 430 ms P-R-T Axes : 76 66 23 degrees QTcB Int : 486 ms Normal sinus rhythm Possible Left atrial enlargement Right bundle branch block Abnormal ECG When compared with ECG of 25-Jul-2024 15:38, No significant change was found Confirmed by Dariel Watson ([id number]) on 12/25/2024 6:15:06 AM Referred By: REFERRED SELF Confirmed By: Dariel Watson
[2024-12-25 07:42] LABS: BUN Creatinine Ratio 29.8 (10-20); Calcium 8.2 mg/dl (8.6-10.3); Creatinine Clr Calc Pharmacy 22.8 ml/min; Potassium 5.2 mmol/L (3.5-5.1)
--- NOTE | 2024-12-25 08:44 | Nephrology Consultation ---
Date of Consultation December 25, 2024 Assessment & Plan (1) Tumor lysis syndrome: * Agree w/ rasburicase therapy * Hold IVF as patient has evidence of mild CHF * Monitor BMP, Ca, PO4, Mg q12 hrs * Monitor I&O's * No acute indication for HD at this time. Explained to patient and family that HD may become necessary if volume overload worsens of severe metabolic derangements develop (2) Acute kidney injury superimposed on CKD: * Baseline Cr 1.5-1.8 * AVE is multifactorial including chemotherapy, TLS, CHF * Will order urinalysis w/ microscopy to review sediment for ATN casts (3) Small cell lung cancer: * Widely metastatic * Refractory to initial therapy * Recently started on lurbinectedin (>60% incidence of AVE). May need to consider alternative therapy * Poor prognosis. Consider consultation w/ palliative care to discuss goals of care History of Present Illness Attending Physician: Coy Kapoor, DO History of Present Illness Mr. Arcos is a 69-year-old white male who is seen at the request of the [facility] hospitalist service to assist w/ management of TLS. Information for the HPI is obtained from direct patient interview and review of the EMR. HPI summarized as follows: Mr. Arcos has a history of CKD w/ Cr 1.5 and EGFR 48 cc/minute. His primary cooker syrup is Dr. Dunn. His renal impairment has been attributed to DKD, hypertensive nephrosclerosis. Unfortunately Mr. Arcos has been a long-term smoker. 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 Chemotherapy was complicated by TLS/AVE and patient underwent IJ TCC insertion 07/27/24 with initiation of HD. He was rehospitalized a few weeks later with pseudomonas sepsis and MV endocarditis. HD catheter was removed 07/29 and replaced 07/[address] Gallegos. He completed 6 weeks IV antibiotic therapy. In 09/29 he recovered kidney function and underwent IJ TCC removal at [facility] in [place] 09/24/24. Mr. Arcos completed 4 cycles of carboplatin/etoposide/atezolizumab followed by maintenance atezolizumab. Unfortunately despite this therapy he has suffered disease progression. He was started on second line treatment of lurbinectedin 12/21/24. Mr. Arcos presented to [facility] EMD last evening w/ complaints of dyspnea. He was diagnosed w/ CHF and laboratory testing revealed Cr has risen from 1.9 on the 16th to 2.92, uric acid 14, Ca 8.2, albumin 3.2, PO4 6.8. Primary service has ordered gentle hydration and rasburicase. Allergies Allergy/AdvReac Type Severity Reaction Status Date / Time lactose AdvReac Gastrointestinal Verified 12/24/24 10:01 Upset Home Medications Medication Instructions Recorded Confirmed Type betamethasone dipropionate 0.05 % 1 applic topical BID PRN skin 08/03/21 12/24/24 Rx topical cream irritation #45 grams triamcinolone acetonide 0.1 % 1 applic topical BID PRN Dry 08/03/21 12/24/24 Rx topical cream scaling areas #15 grams lansoprazole 30 mg capsule,delayed 30 mg PO QAM heart burn 07/12/24 12/24/24 History release blood-glucose meter (OneTouch #1 ea 07/21/24 12/24/24 Rx Verio Flex Start kit) blood-glucose meter (OneTouch #1 ea 07/22/24 12/24/24 Rx Verio Flex Start kit) rosuvastatin 10 mg tablet 10 mg PO QPM #90 tabs 07/22/24 12/24/24 Rx amlodipine 5 mg tablet (Norvasc) 5 mg PO QAM #30 tabs 08/03/24 12/24/24 Rx allopurinol 100 mg tablet 100 mg PO QAM 10/28/24 12/24/24 History sildenafil (pulm.hypertension) 20 20 mg PO 3XWK 12/01/24 12/24/24 History mg tablet (Revatio) trazodone 50 mg tablet 50 mg PO HS PRN Sleep 12/01/24 12/24/24 History simethicone 250 mg capsule (Gas-X) 250 mg PO DAILY PRN Abdominal 12/21/24 12/24/24 History Discomfort acetaminophen 500 mg tablet 500 mg PO Q6H PRN Pain 12/24/24 12/24/24 History (Tylenol Extra Strength) carvedilol 25 mg tablet 25 mg PO AMHS 12/24/24 12/24/24 History finasteride 5 mg tablet 5 mg PO QAM 12/24/24 12/24/24 History magnesium oxide 400 mg (241.3 mg 400 mg PO BID 12/24/24 12/24/24 History magnesium) tablet vitamin B complex-vitamin C-folic 1 tab PO DAILY 12/24/24 12/24/24 History acid 0.8 mg tablet (Aurelia-Mora) Patient History Medical History Bacterial endocarditis Infective endocarditis of mitral valve Acute renal failure Sepsis Acute kidney injury Tobacco dependence due to cigarettes Full thickness rotator cuff tear History of COVID-2019, mild symptoms Surgical History S/P arthroscopy of left shoulder History of arthroscopy of right shoulder 18 years ago History of colonoscopy Hx of LASIK bilateral Family History Son Kidney disease Mother Cancer Brother Cancer oral Social History Smoking Status: Former smoker Tobacco Type: Cigarettes Age Started Using Tobacco: 9; Age Quit Using Tobacco: 69; packs per day: 1.5; Cigarettes Per Day: 30; Smoking End Date: Stopped smoking 07/12/24; Second Hand Exposure: Yes (childhood); Do You Dip or Chew Tobacco: No; Hx Alcohol Use: No Hx Substance Use: No Preferred Language: Irish Communication Ability: Effective Visual Impairment: Partially Limited Hearing Ability: Normal Manager Zone Required: No Beliefs That Will Affect Care: None marital status: marital status details: but still living together Current Living Situation: Spouse current occupational status: retired How many Children do You have: 2 Feels Safe at Home: Yes Childhood Exposure to Second-Hand Smoke: Yes Diet: regular caffeine: Yes Dental Care, Regularly: Yes Physical Activity Frequency: Other Physical Activity Frequency Comment: Outside work Seatbelt Use: sometimes Sunscreen Use: Yes Assistive Devices: Cane Review of Systems Constitutional: no fever Eyes: no problem reported Ear, Nose, Mouth, Throat: no problem reported Respiratory: + dyspnea; no cough Cardiovascular: no chest pain Gastrointestinal: no nausea, no vomiting and no diarrhea/loose stools Genitourinary: no dysuria Integumentary: no rash Physical Exam Constitutional: + ill appearing Eyes: PERRL, conjunctivae normal, anicteric sclerae ENMT: external ear and nose normal, oropharynx normal Neck: trachea midline, no thyromegaly Respiratory: normal respiratory effort, lungs clear to auscultation Auscultation: + rales Cardiovascular: RRR, no murmur, no edema Gastrointestinal (Abdomen): normal bowel sounds, soft, nontender, no hepatosplenomegaly Skin: no rashes, warm and dry Neurologic: Speech / Cognition: normal speech and normal cognition Results & Data Vital Signs (Past 12 Hours) Vital Signs Temp Pulse Pulse Pulse Resp BP Pulse Ox 12/25/24 07:37 77 12/25/24 04:25 82 20 93 12/25/24 04:15 36.7 C 86 22 165/64 H 89 L 12/24/24 23:33 81 19 93 12/24/24 23:21 37 C 79 18 119/60 95 12/24/24 21:50 73 12/24/24 21:07 O2 Del Method O2 Flow Rate 12/25/24 07:37 12/25/24 04:25 Nasal Cannula 3 12/25/24 04:15 Nasal Cannula 3 12/24/24 23:33 Nasal Cannula 3 12/24/24 23:21 Nasal Cannula 3 12/24/24 21:50 12/24/24 21:07 Nasal Cannula 3 Laboratory Results Laboratory Results WBC 10.30 K/ul (4.8-10.8) 12/24/24 00:40 RBC 3.23 M/uL (4.70-6.10) L 12/24/24 00:40 Hgb 10.1 g/dl (14.0-18.0) L 12/24/24 00:40 Hct 30.6 % (42.0-52.0) L 12/24/24 00:40 MCV 94.7 fL (80.0-100.0) 12/24/24 00:40 MCH 31.3 pg (25.0-34.0) 12/24/24 00:40 MCHC 33.0 g/dL (32.0-36.0) 12/24/24 00:40 RDW Std Deviation 53.8 fL (36.4-46.3) H 12/24/24 00:40 RDW Coeff of [place] 15.7 % (11.5-14.5) H 12/24/24 00:40 Plt Count 168 K/uL (130-400) 12/24/24 00:40 MPV 10.8 fL (9.4-12.4) 12/24/24 00:40 Immature Gran % (Auto) 0.6 % 12/24/24 00:40 Neut % (Auto) 91.8 % 12/24/24 00:40 Lymph % (Auto) 4.7 % 12/24/24 00:40 [place] % (Auto) 2.4 % 12/24/24 00:40 Eos % (Auto) 0.3 % 12/24/24 00:40 Baso % (Auto) 0.2 % 12/24/24 00:40 Neut # (Auto) 9.46 K/uL (1.40-6.50) H 12/24/24 00:40 Lymph # (Auto) 0.48 K/uL (1.20-3.40) L 12/24/24 00:40 [place] # (Auto) 0.25 K/uL (0.11-0.59) 12/24/24 00:40 Eos # (Auto) 0.03 K/uL (0.00-0.50) 12/24/24 00:40 Baso # (Auto) 0.02 K/uL (0.00-0.20) 12/24/24 00:40 Immature Gran # (Auto) 0.06 K/uL (0.01-0.20) 12/24/24 00:40 RBC Morphology Unremarkable 12/24/24 00:40 PT 10.4 Seconds (9.0-12.0) 12/24/24 00:40 INR 1.0 (0.9-1.1) 12/24/24 00:40 VBG pH 7.39 (7.36-7.41) 12/24/24 01:17 VBG pCO2 34 mmHg (38-50) L 12/24/24 01:17 VBG pO2 65 mmHg 12/24/24 01:17 VBG HCO3 21 mmol/L 12/24/24 01:17 VBG O2 Saturation 94.4 % 12/24/24 01:17 VBG Base Excess -3.6 mEq/L 12/24/24 01:17 Sodium 141 mmol/L (136-145) 12/25/24 06:43 Potassium 5.2 mmol/L (3.5-5.1) H 12/25/24 06:43 Chloride 108 mmol/L (98-107) H 12/25/24 06:43 Carbon Dioxide 23 mmol/L (21-32) 12/25/24 06:43 Anion Gap 10 (3-11) 12/25/24 06:43 BUN 87 mg/dl (6-23) H 12/25/24 06:43 Creatinine 2.92 mg/dl (0.6-1.4) H 12/25/24 06:43 Est Cr Clr Drug Dosing 22.8 ml/min 12/25/24 06:43 eGFR 22.38 12/25/24 06:43 BUN/Creatinine Ratio 29.8 (10-20) H 12/25/24 06:43 Glucose 113 mg/dl (70-99(Fasting)) H 12/25/24 06:43 Uric Acid 16.8 mg/dl (2.6-7.2) H 12/25/24 06:43 Calcium 8.2 mg/dl (8.6-10.3) L 12/25/24 06:43 Phosphorus 6.8 mg/dl (2.5-4.9) H 12/25/24 06:43 Magnesium 2.8 mg/dl (1.7-2.4) H 12/25/24 06:43 Total Bilirubin 0.8 mg/dl (0.2-1.0) 12/24/24 08:55 AST 232 U/L (13-39) H 12/24/24 08:55 ALT 241 U/L (7-52) H 12/24/24 08:55 Alkaline Phosphatase 319 U/L (34-104) H 12/24/24 08:55 Lactate Dehydrogenase 1920 U/L (86-244) H 12/25/24 06:43 Troponin I High Sens 27.5 pg/ml (0-20) H 12/24/24 02:55 B-Natriuretic Peptide 504 pg/ml (0-100) H 12/24/24 00:40 Total Protein 5.6 gm/dl (6.0-8.3) L 12/24/24 08:55 Albumin 3.2 gm/dl (3.4-5.0) L 12/24/24 08:55 Globulin 2.4 gm/dl (2.5-4.0) L 12/24/24 08:55 Albumin/Globulin Ratio 1.3 (0.9-2) 12/24/24 08:55 Urine Color Yellow 12/24/24 02:00 Urine Appearance Clear (Clear) 12/24/24 02:00 Urine pH 5.0 (4.5-7.5) 12/24/24 02:00 Ur Specific [place] 1.016 (1.000-1.030) 12/24/24 02:00 Urine Protein 2+ (Negative) H 12/24/24 02:00 Urine Glucose (UA) Negative (Negative) 12/24/24 02:00 Urine Ketones Negative (Negative) 12/24/24 02:00 Urine Blood Negative (Negative) 12/24/24 02:00 Urine Nitrite Negative (Negative) 12/24/24 02:00 Urine Bilirubin Negative (Negative) 12/24/24 02:00 Urine Urobilinogen Negative (Negative) 12/24/24 02:00 Ur Leukocyte Esterase Negative (Negative) 12/24/24 02:00 Urine WBC (Auto) 0-5 /hpf (0-5) 12/24/24 02:00 Urine RBC (Auto) 0-2 /hpf (0-2) 12/24/24 02:00 U Hyaline Cast (Auto) 0-2 /lpf (0-2) 12/24/24 02:00 U Epithel Cells (Auto) 0-2 /hpf (0-2) 12/24/24 02:00 Urine Bacteria (Auto) None Seen (None Seen) 12/24/24 02:00 Urine Comment 12/24/24 02:00 Adenovirus (PCR) Not Detected (NotDetected) 12/24/24 00:40 B. pertussis DNA (PCR) Not Detected (NotDetected) 12/24/24 00:40 B.parapertussis DNA PCR Not Detected (NotDetected) 12/24/24 00:40 C. pneumoniae DNA (PCR) Not Detected (NotDetected) 12/24/24 00:40 Coronavirus OC43 (PCR) Not Detected (NotDetected) 12/24/24 00:40 Coronavirus HKU1 (PCR) Not Detected (NotDetected) 12/24/24 00:40 Coronavirus 229E (PCR) Not Detected (NotDetected) 12/24/24 00:40 SARS-CoV-2 (PCR) Not Detected (NotDetected) 12/24/24 00:40 Coronavirus NL63 (PCR) Not Detected (NotDetected) 12/24/24 00:40 Human Metapneumovir PCR Not Detected (NotDetected) 12/24/24 00:40 Influenza Type A (PCR) Not Detected (NotDetected) 12/24/24 00:40 Influenza Type B (PCR) Not Detected (NotDetected) 12/24/24 00:40 M. pneumoniae (PCR) Not Detected (NotDetected) 12/24/24 00:40 Parainfluenza 1 (PCR) Not Detected (NotDetected) 12/24/24 00:40 Parainfluenza 2 (PCR) Not Detected (NotDetected) 12/24/24 00:40 Parainfluenza 3 (PCR) Not Detected (NotDetected) 12/24/24 00:40 Parainfluenza 4 (PCR) Not Detected (NotDetected) 12/24/24 00:40 RSV (PCR) Not Detected (NotDetected) 12/24/24 00:40 Entero/Rhino (PCR) Not Detected (NotDetected) 12/24/24 00:40 Impressions KUB X-Ray 12/24/24 13:48 KUB HISTORY: constipation COMPARISON STUDY: 07/20/2024 FINDINGS: There is mild to moderate retained stool. No bowel obstruction seen. No gross free air. There are atherosclerotic calcifications at the splenic artery. IMPRESSION: No acute findings. ACT 112: Negative or not required by law. The above report was generated using voice recognition software. It may contain grammatical, syntax or spelling errors. Electronically signed by: Julito Nguyen M.D. 12/24/2024 2:58 PM Chest X-Ray 12/25/24 09:47 XR chest 1V portable CLINICAL HISTORY: increased oxygen requirment COMPARISON STUDY: 12/24/2024 FINDINGS: Stable mild cardiomegaly with mild pulmonary vascular congestion. There is interval patchy consolidation at the right lower lung. There is mild blunting of the costophrenic angles. No pneumothorax. IMPRESSION: 1. Mild CHF with possible trace pleural effusions. 2. Right lower lung pneumonia. ACT 112: Negative or not required by law. Electronically signed by: Julito Nguyen M.D. 12/25/2024 10:14 AM PG Care Time/CCT Total # of Minutes Spent Total Time Spent with Patient: Total time spent is greater than 50% in coordination of care (as documented) at patient's floor/unit and/or counseling patient: Coding Level of Care Code 35975 IN/OBS CONSULT LVL 5,80M Diagnoses Tumor lysis syndrome E88.3 Acute kidney injury superimposed on CKD N17.9; N18.9 Small cell lung cancer C34.90
[2024-12-25] MEDS: SILDENAFIL CITRATE 20 MG TABLET PO PRN (08:54)
[2024-12-25] MEDS: RASBURICASE IV ONE (08:56)
[2024-12-25] MEDS: SODIUM CHLORIDE 0.9% 1,000 ML IV SCH (08:56)
[2024-12-25] MEDS: SODIUM CHLORIDE 0.9% IV ONE (08:56)
[2024-12-25 09:15] LABS: Magnesium 2.8 mg/dl (1.7-2.4); Phosphorus 6.8 mg/dl (2.5-4.9); Uric Acid 16.8 mg/dl (2.6-7.2)
--- NOTE | 2024-12-25 10:04 | Hospitalist Progress Note ---
Date of Service December 25, 2024 Assessment & Plan (1) Hypoxia: (2) SOB (shortness of breath): (3) Small cell lung cancer: (4) COPD with emphysema: (5) Pneumonia involving right lung: (6) Tumor lysis syndrome: Plan This patient is a 69-year-old male with a history of small cell lung cancer with mets to the liver/adrenal gland/bones/mediastinal lymph nodes s/p chemotherapy and then on maintenance immunotherapy with atezolizumab, now recently switched to lurbinectedin due to failure of atezolizumab currently undergoing radiation therapy, infective endocarditis, history of smoking, HTN, GERD, HLD, anemia, 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 He feels much improved after being placed on supplemental O2 and receiving a DuoNeb treatment. He states that he knows he has "bad cancer" and wants to minimize his time in the hospital. He is agreeable to stay temporarily, receive nebulizer treatments, and have home O2 arranged for discharge. He denies chest pains. He has abdominal bloating and some right isabelle ed abdominal pain likely from increased hepatomegaly and liver metastases. He is admitted for acute respiratory failure with hypoxemia in the setting of metastatic lung cancer #Pneumonia CXR suggestive of evolving R side pneumonia along with increased oxygen requirement Start Rocphen and azithromycin #Tumor Lysis Syndrome Rasburicase started Nephrology consulted, appreciate recs Hold IVF in setting of possible fluid overload Monitor BMP, CA, PO4, Mg q12h No need for dialysis acutely #Metastatic small cell lung cancer/acute respiratory failure with hypoxemia/COPD -patient currently on new chemotherapy for the last week. He knows he has extensive disease and that his condition is with a very poor prognosis. He feels better after DuoNeb treatment and supplemental O2 and does not want much further treatment beyond this in the hospital - Continue supplemental O2 and do two-step walk test prior to discharge - Continue DuoNebs 4 times daily and please arrange for nebulizer treatment at home after discharge - Consult his oncologist-he would like to speak with her while he is in the hospital regarding his condition - Will check echo to evaluate for CHF, how this may be contributing to hypoxia #HTN/HLD-BPs mildly elevated - Continue home amlodipine, carvedilol - Continue rosuvastatin #AVE on CKD stage III/IV-creatinine elevated above baseline at 2.78. He previously required dialysis a few months ago temporarily. Follows with nephrology. He reports he has been taking p.o. without nausea or vomiting. His BNP was elevated at 500 and troponin minimally elevated at 29 down to 27 on recheck. ECG without ischemic changes. IV fluids not given due to concerns for possible CHF although he does not appear volume overloaded on exam - Follow BMP and if creatinine remains elevated, consider small amounts of IV fluid #Anemia of chronic disease-hemoglobin low but stable from previous at 10.1, likely secondary to anemia of chronic disease and from antineoplastic therapy - Follow CBC #GERD-no acute issues - Continue lansoprazole DVT prophylaxis-heparin SQ Disposition-admit to medical floor with telemetry but suspect short stay. Two- step walk test prior to discharge for home O2 and needs home nebulizer on discharge Admission and Anticipated Discharge Date Admission Date: December 24, 2024 Supervising Physician Co-Signing Physician Notes I personally examined the patient and verified all funes points of history and exam, discussed case, and agree with decision making with Dr Merino feels lousy - breathing worse. coughing up sputum - describes as clear, but shows me what he's been spitting out and it's thick and green with hint of brown. vitals noted nad heent nc at mmm breathing unlabored no accessory muscles good faint rales diminished air entry cardio reg no r/m/g hypoxia -CXR w RLL predominance - this & rapid worsening & green sputum - fits more wtih pneumonia - vigilance for acute diastolic CHF but not as clearly evident (this superimposed on presumed baseline COPD) -MRSA nares negative, start zith/roceph tumor lysis -appreciate nephrology assistance -monitor closely -did need HD before but no acute indications -raspiricase given -follow labs metastatic lung cancer -ongoing supportive care constipation -bowel regimen Subjective Patient seen. Overnight, developed significantly increased O2 demand. Now on 5L oxymask sating mid 90s. Labs this am appear consistent with re-occurrence of tumor lysis syndrome. CXR this am with r side consolidation concerning for evolving pneumonia. Otherwise, VSS. Patient rec'd radiation treatment today. Review of Systems Review of Systems: reviewed, per HPI Physical Exam Physical Exam: Constitutional: ill-appearing, no acute distress HEENT: NCAT, no conjunctival injection CV: extremities well-perfused, no LE edema Resp: no increased work of breathing, on 5L oxymask GI: nondistended MSK: no gross deformities appreciated Skin: warm, dry, no rash appreciated Neuro: alert, oriented, no focal neurologic deficit appreciated Results & Data Results & Data Vital Signs (Past 12 Hours) Vital Signs Temp Pulse Pulse Pulse Resp BP Pulse Ox 12/25/24 07:37 77 12/25/24 04:25 82 20 93 12/25/24 04:15 36.7 C 86 22 165/64 H 89 L 12/24/24 23:33 81 19 93 12/24/24 23:21 37 C 79 18 119/60 95 O2 Del Method O2 Flow Rate 12/25/24 07:37 12/25/24 04:25 Nasal Cannula 3 12/25/24 04:15 Nasal Cannula 3 12/24/24 23:33 Nasal Cannula 3 12/24/24 23:21 Nasal Cannula 3 Resident Activity Tracking Resident Involvement: Resident Care Provided Care Provided: Adult Hospital Medicine
--- NOTE | 2024-12-25 10:15 | XRay Report ---
XR chest 1V portable CLINICAL HISTORY: increased oxygen requirment COMPARISON STUDY: 12/24/2024 FINDINGS: Stable mild cardiomegaly with mild pulmonary vascular congestion. There is interval patchy consolidation at the right lower lung. There is mild blunting of the costophrenic angles. No pneumoth orax. IMPRESSION: 1. Mild CHF with possible trace pleural effusions. 2. Right lower lung pneumonia. ACT 112: Negative or not required by law. Electronically signed by: Julito Nguyen M.D. 12/25/2024 10:14 AM
[2024-12-25] MEDS: AZITHROMYCIN 500 MG/255 ML BAG IV ONE (11:28)
[2024-12-25] MEDS: cefTRIAXone SODIUM 1,000 MG/50 ML BAG IV SCH (11:28)
--- NOTE | 2024-12-25 15:04 | XCELERA ---
[id number] \\[email or web address]\[id number]
--- NOTE | 2024-12-25 16:39 | Billing Data ---
Date of Service December 25, 2024 Coding Level of Care Code 42665 SUB INP/OBS CARE MIN
[2024-12-25] MEDS: SODIUM ZIRCONIUM CYCLOSILICATE 10 GM PACKET PO ONE (16:43)
[2024-12-25] MEDS: ACETAMINOPHEN 500 MG TAB PO PRN (16:51)
--- NOTE | 2024-12-25 17:42 | Communication Note ---
Date of Service: December 25, 2024
--- NOTE | 2024-12-25 18:18 | Advance Care Plan Prog Note ---
Advanced Care Planning Note Date of Discussion December 25, 2024 ACP Discussion Diagnoses requiring ACP discussion: Stage IV metastatic small cell lung cancer, tumor lysis syndrome A [id number] discussion with the patient and patient's daughter/medical POA (Lynnette) regarding the patient's advanced care planning took place during this hospitalization on the above date. The discussion included the explanation and discussion of advance directives and associated forms/documents, as well as the patient's current code status. We also discussed at length the patient's medical conditions (both acute and chronic), general prognosis, treatment options, and goals of care. The following summarizes the discussion: Received [place] request from nurse (Osmar Kidd RN) to come to bedside and discuss patient's request to change CODE STATUS from Full Code to DNR/DNI. This patient is familiar to me from prior admissions; PMH of advanced stage IV small cell lung cancer with metastasis to liver/adrenal gland/bone/mediastinal lymph nodes. I spoke in-depth with both the patient and patient's daughter/medical proxy (Monalisa) at bedside regarding CODE STATUS. Mr. Arcos recently had a discussion with his [id number] (nurse), who shared her personal experiences with CPR and intubated patients. They discussed the potential sequela that accompany things like CPR (such as broken ribs, intubation, and long recovery processes even if ROSC may be obtained). After that discussion, Mr. Arcos had a talk with his family, and would like to proceed with switching from full code to DNR/DNI. He understands that - if his time came - his primary goal would be to focus on comfort and going peacefully, rather than being "hooked up to machines". Patient exhibits full medical capacity at this time; he is A&Ox3, and was able to communicate information effectively regarding both his condition and overall prognosis. He was informed that he had full medical autonomy to change his code status, and that we would honor his wishes while hospitalized. Information regarding POLST forms was provided, and he was told that this form could be signed his attending physician or by his PCP during a transitional care appointment. Additionally, Mr. Arcos stated his main goal was to be "home more often". When asked if he would be open to palliative care discussions, he declined. He reports he is not yet ready to have those discussions. Both patient/daughter were appreciative of the conversation. Updated Dr. Kapoor and Dr. Merino to keep them both apprised of change in code status. Status Resuscitation Status DNR/DNI No Resuscitation Total Time A total of 10 minutes was spent on this discussion, including counseling, answering questions, and completing, if any, pertinent advanced care planning forms/documents.
[2024-12-25 21:06] LABS: BUN Creatinine Ratio 26.2 (10-20); Calcium 8.1 mg/dl (8.6-10.3); Creatinine Clr Calc Pharmacy 19.6 ml/min; Phosphorus 7.5 mg/dl (2.5-4.9); Uric Acid 12.7 mg/dl (2.6-7.2)
--- NOTE | 2024-12-26 07:02 | Hospitalist Progress Note ---
Date of Service December 26, 2024 Assessment & Plan (1) Hypoxia: (2) SOB (shortness of breath): (3) Small cell lung cancer: (4) COPD with emphysema: (5) Pneumonia involving right lung: (6) Tumor lysis syndrome: Plan This patient is a 69-year-old male with a history of small cell lung cancer with mets to the liver/adrenal gland/bones/mediastinal lymph nodes s/p chemotherapy and then on maintenance immunotherapy with atezolizumab, now recently switched to lurbinectedin due to failure of atezolizumab currently undergoing radiation therapy, infective endocarditis, history of smoking, HTN, GERD, HLD, anemia, 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 He feels much improved after being placed on supplemental O2 and receiving a DuoNeb treatment. He states that he knows he has "bad cancer" and wants to minimize his time in the hospital. He is agreeable to stay temporarily, receive nebulizer treatments, and have home O2 arranged for discharge. He denies chest pains. He has abdominal bloating and some right isabelle ed abdominal pain likely from increased hepatomegaly and liver metastases. He was admitted for acute respiratory failure with hypoxemia in the setting of metastatic lung cancer. #Pneumonia CXR suggestive of evolving R side pneumonia along with increased oxygen requirement Continue ctx and azithromycin #Metastatic SCLC/AHRF/COPD/?CHF Patient on new chemotherapy since last week. He knows he has extensive disease and that his condition is with a very poor prognosis. He feels better after DuoNeb treatment and supplemental O2 and does not want much further treatment beyond this in the hospital - Continue supplemental O2, DuoNebs QID, IS, consider addition of steroids if O2 demand further increases - Will need two-step walk test & arrangement for nebulizer treatment at home prior to discharge - Consult his oncologist; he would like to speak with her while he is in the hospital regarding his condition - CXR on 12/25 showed mild CHF with possible trace pleural effusions, may be contributing to hypoxia - Echo done to evaluate for CHF: EF 60-65%, no significant change from prior #Tumor Lysis Syndrome Rasburicase started Today, K increased to 5.7, Ca stable at 8.2, Phos stable at 7.4, uric acid improved to 11.4 Nephrology consulted, appreciate recs Hold IVF in setting of possible fluid overload Monitor BMP, CA, PO4, Mg q12h No need for dialysis acutely #HTN/HLD-BPs mildly elevated - Continue home amlodipine, carvedilol - Continue rosuvastatin #AVE on CKD stage III/IV-creatinine elevated above baseline at 2.78. He previously required dialysis a few months ago temporarily. Follows with nephrology. He reports he has been taking p.o. without nausea or vomiting. His BNP was elevated at 500 and troponin minimally elevated at 29 down to 27 on recheck. ECG without ischemic changes. IV fluids not given due to concerns for possible CHF although he does not appear volume overloaded on exam - Follow BMP. If creatinine remains elevated, consider small amounts of IVF and need for HD. Cr 3.44 today, comparable to yesterday. #Anemia of chronic disease-hemoglobin low but stable from previous at 10.1, likely secondary to anemia of chronic disease and from antineoplastic therapy - Follow CBC #GERD-no acute issues - Continue lansoprazole DVT prophylaxis-heparin SQ Disposition-admit to medical floor with telemetry but suspect short stay. Two- step walk test prior to discharge for home O2 and needs home nebulizer on discharge Admission and Anticipated Discharge Date Admission Date: December 25, 2024 Supervising Physician Co-Signing Physician Notes I personally examined the patient and verified all funes points of history and exam, discussed case, and agree with decision making with Dr Anju rivera green sputum. doesn't feel sob. asks good questions - i answer all to the best of my ability vitals noted nad heent nc at mmm breathing unlabored no accessory muscles good faint rales much better air entry, neuro no focal deficits, skin no rashes no pallor or icterus hypoxia -CXR w RLL predominance - this & rapid worsening & green sputum - still overall fits more with pneumonia than decompensated CHF - if any worsneing in respiratory status would get noncontrast chest CT for more clarity (acute illness superimposed on presumed baseline COPD) -on zith/roceph tumor lysis -appreciate nephrology assistance -monitor closely -did need HD before but no acute indications yet - we discussed in depth; agree w nephro no clear indication for HD now, but also not clear that diuretics would be more benefit than harm - close watchful waiting -raspiricase given 12/25 -follow labs metastatic lung cancer -ongoing supportive care; we had a good and open discussion about his goals of care with this. he is aware that he's dying of this, but also that he wants to fight to any length he can until/unless he decides he's tired (which right now he's not) - we discussed that essentially he has a "go down swinging" mentality - and therefore while he knows that further lines of treatment are most likely to be less effective than previous lines, he wants to continue to pursue any treatment option he can. constipation -bowel regimen Subjective Still requiring supplemental O2, now on 9L NC. Otherwise VSS. Reports feeling well this morning, denies SOB or CP. Does complain of some sneezing and rhinorrhea after the nebs. Review of Systems Review of Systems: reviewed, per HPI Physical Exam Physical Exam: Gen: NAD, WD/WN HEENT: NCAT, PERRL CV: RRR, no m/r/g, no LE edema Resp: No wheeze, normal respiratory effort on 9L nasal cannula Abd: Soft, NT/ND, +BS Skin: Warm, dry, well-perfused Results & Data Results & Data Vital Signs (Past 12 Hours) Vital Signs Temp Pulse Pulse Resp BP Pulse Ox O2 Del Method 12/26/24 03:31 36.9 C 82 18 128/64 94 Oxymask 12/26/24 00:27 Oxymask 12/26/24 00:23 67 12/26/24 00:08 74 18 94 Oxymask 12/25/24 23:17 36.8 C 75 16 125/68 90 Oxymask 12/25/24 19:43 18 93 Oxymask 12/25/24 19:33 36.8 C 71 18 103/61 90 Oxymask O2 Flow Rate 12/26/24 03:31 8 12/26/24 00:27 9 12/26/24 00:23 12/26/24 00:08 9 12/25/24 23:17 8 12/25/24 19:43 9 12/25/24 19:33 8 Resident Activity Tracking Resident Involvement: Resident Care Provided Care Provided: Adult Hospital Medicine
[2024-12-26] MEDS: AZITHROMYCIN 250 MG in DEXTROSE 5% 250 ML IV SCH (08:52)
[2024-12-26 09:26] LABS: Calcium 8.2 mg/dl (8.6-10.3); Creatinine Clr Calc Pharmacy 19.3 ml/min; Phosphorus 7.4 mg/dl (2.5-4.9); Potassium 5.7 mmol/L (3.5-5.1); Uric Acid 11.4 mg/dl (2.6-7.2)
--- NOTE | 2024-12-26 10:56 | Nephrology Progress Note ---
Date of Service December 26, 2024 Assessment & Plan (1) Acute kidney injury superimposed on CKD: (2) Hypoxia: (3) Anemia: (4) Tumor lysis syndrome: (5) Small cell lung cancer: Plan 69-year-old male with stage IIIb CKD baseline creatinine around 1.6 lately with prior history of dialysis requiring AVE in the setting of tumor lysis syndrome in July. Kidney function recovered and was taken off of dialysis in September and TDC was removed on 09/24/24. Diagnosed during metastatic lung cancer in July 2024, completed 4 cycles of carboplatin/etoposide/atezolizumab followed by maintenance atezolizumab. Unfortunately despite this therapy he has suffered disease progression with metastasis to the mediastinum, liver and R scapula. He was started on second line treatment of lurbinectedin 12/21/24. Presented to [facility] on 12/24/24 with dyspnea. Lab was notable for acute kidney injury secondary to tumor lysis syndrome with elevated uric acid level of 16, hypocalcemia, hyperphosphatemia. Was clinically noted to be volume overloaded with pulmonary congestion and bilateral pleural effusion. Lab was notable for AVE, creatinine was 1.9 which rapidly worsened and up to 3.4 mg/dl associated with hyperkalemia and hyperphosphatemia. Volume status remained acceptable with decent urine output although oxygen requirement has been with bilateral pleural effusion pulmonary congestion. Uric acid slightly improved but no improvement in kidney function, remains hyperkalemic and hypophosphatemic. Received 1 dose of rasburicase but unfortunately IV fluid could not be given because of respiratory status. --Will hold off on diuretics at this time. If uric acid remains significantly elevated, will consider another dose of rasburicase. --Lokelma daily --Monitor intake and output, if respiratory status worsen further we will start on IV diuretics. High risk for needing dialysis again if there is no improvement in kidney function and electrolytes remain abnormal --If dialysis needed, he will need tunneled dialysis catheter. Admission and Anticipated Discharge Date Admission Date: December 25, 2024 Veronica Christine was seen and evaluated with his at bedside and son was over telephone. He denies any significant shortness of breath but nasal cannula oxygen requirement has been going up. Blood pressure acceptable. Reports decent urine output. Weight has been stable. No significant changes in kidney function, creatinine still staying above 3 with BUN in the 80s. Uric acid still elevated but improved to 11.2 from above 16. Potassium elevated at 5.7 with hyperphosphatemia. Hemoglobin dropped to 10.1. Review of Systems Review of Systems: All systems reviewed & are unremarkable except as noted in Subjective Physical Exam Constitutional: WD/WN, vitals as above no acute distress Eyes: + anicteric sclerae Neck: normal visual inspection Respiratory: Auscultation: + diminished lung sounds and + crackles Cardiovascular: Rate/Rhythm: regular rate and regular rhythm Heart Sounds: normal S1 and normal S2 Extremities: + edema (Trace ) Skin: no rashes, warm and dry Neurologic: no focal motor deficits Psychiatric: Orientation: alert and oriented x 3 Results & Data Vital Signs (Past 12 Hours) Vital Signs Temp Pulse Pulse Resp BP Pulse Ox Pulse Ox 12/26/24 09:10 12/26/24 07:40 36.4 C L 85 18 133/68 93 12/26/24 07:37 85 12/26/24 07:18 90 20 89 L 12/26/24 07:00 90 12/26/24 03:31 36.9 C 82 18 128/64 94 12/26/24 00:27 12/26/24 00:23 67 12/26/24 00:08 74 18 94 12/25/24 23:17 36.8 C 75 16 125/68 90 O2 Del Method O2 Del Method O2 Flow Rate O2 Flow Rate 12/26/24 09:10 9 12/26/24 07:40 Nasal Cannula 9 12/26/24 07:37 12/26/24 07:18 Nasal Cannula 9 12/26/24 07:00 Nasal Cannula 9 12/26/24 03:31 Oxymask 8 12/26/24 00:27 Oxymask 9 12/26/24 00:23 12/26/24 00:08 Oxymask 9 12/25/24 23:17 Oxymask 8 PG Care Time/CCT Total # of Minutes Spent Total Time Spent with Patient: Total time spent is greater than 50% in coordination of care (as documented) at patient's floor/unit and/or counseling patient: Coding Level of Care Code 16552 SUB INP/OBS CARE 3/50MIN Diagnoses Acute kidney injury superimposed on CKD N17.9; N18.9 Hypoxia R09.02 Anemia D64.9 Tumor lysis syndrome E88.3 Small cell lung cancer C34.90
[2024-12-26] MEDS: Patient's ALLERGY Info needs ENTERED STA (14:29)
[2024-12-26] MEDS: SODIUM ZIRCONIUM CYCLOSILICATE 10 GM PACKET PO SCH (14:29)
[2024-12-26 14:53] LABS: BUN Creatinine Ratio 25.6 (10-20); Calcium 8.2 mg/dl (8.6-10.3); Creatinine Clr Calc Pharmacy 19.6 ml/min; Phosphorus 7.1 mg/dl (2.5-4.9); Potassium 4.8 mmol/L (3.5-5.1); Uric Acid 10.2 mg/dl (2.6-7.2)
--- NOTE | 2024-12-26 17:51 | Billing Data ---
Date of Service December 26, 2024 Coding Level of Care Code 01298 SUB INP/OBS CARE MIN
[2024-12-26 20:46] LABS: BUN Creatinine Ratio 25.1 (10-20); Calcium 8.2 mg/dl (8.6-10.3); Creatinine Clr Calc Pharmacy 18.9 ml/min; Phosphorus 7.2 mg/dl (2.5-4.9); Potassium 4.9 mmol/L (3.5-5.1); Uric Acid 9.8 mg/dl (2.6-7.2)
[2024-12-27 10:25] LABS: Hemoglobin 10.3 g/dl (14.0-18.0); Mean Corpuscular Hemoglobin 30.7 pg (25.0-34.0); Mean Corpuscular Hgb Conc 32.2 g/dL (32.0-36.0); Mean Corpuscular Volume 95.2 fL (80.0-100.0); Mean Platelet Volume 11.8 fL (9.4-12.4); Platelet Count 69 K/uL (130-400); RDW Coefficient of Variation 15.5 % (11.5-14.5); RDW Standard Deviation 53.6 fL (36.4-46.3); Red Blood Count 3.36 M/uL (4.70-6.10)
[2024-12-27 10:46] LABS: Calcium 8.2 mg/dl (8.6-10.3); Creatinine Clr Calc Pharmacy 19.5 ml/min; Magnesium 2.6 mg/dl (1.7-2.4); Phosphorus 6.3 mg/dl (2.5-4.9); Potassium 4.7 mmol/L (3.5-5.1); Uric Acid 8.7 mg/dl (2.6-7.2)
--- NOTE | 2024-12-27 10:50 | Nephrology Progress Note ---
Date of Service December 27, 2024 Assessment & Plan (1) Acute kidney injury superimposed on CKD: (2) Hypoxia: (3) Anemia: (4) Tumor lysis syndrome: (5) Small cell lung cancer: Plan 69-year-old male with stage IIIb CKD baseline creatinine around 1.6 lately with prior history of dialysis requiring AVE in the setting of tumor lysis syndrome in July. Kidney function recovered and was taken off of dialysis in September and TDC was removed on 09/24/24. Diagnosed during metastatic lung cancer in July 2024, completed 4 cycles of carboplatin/etoposide/atezolizumab followed by maintenance atezolizumab. Unfortunately despite this therapy he has suffered disease progression with metastasis to the mediastinum, liver and R scapula. He was started on second line treatment of lurbinectedin 12/21/24. Presented to [facility] on 12/24/24 with dyspnea. Lab was notable for acute kidney injury secondary to tumor lysis syndrome with elevated uric acid level of 16, hypocalcemia, hyperphosphatemia. Was clinically noted to be volume overloaded with pulmonary congestion and bilateral pleural effusion. Lab was notable for AVE, creatinine was 1.9 which rapidly worsened and up to 3.4 mg/dl associated with hyperkalemia and hyperphosphatemia. Volume status remained acceptable with decent urine output. Blood pressure well-controlled. Decent urine output. No significant improvement in kidney function but uric acid, potassium and phosphorus continues to improve. --Continue to hold diuretics at this time. --Lokelma daily --Start on sodium bicarbonate 650 mg twice a day. --Monitor intake and output, if respiratory status worsen further we will start on IV diuretics. High risk for needing dialysis again if there is no improvement in kidney function and electrolytes remain abnormal --If dialysis needed, he will need tunneled dialysis catheter. Admission and Anticipated Discharge Date Admission Date: December 25, 2024 Veronica Christine was seen and evaluated with his daughter at bedside. He denies any significant shortness of breath reports overall feeling okay and had good night sleep last night. Blood pressure acceptable. Reports decent urine output. Weight has been stable. No significant changes in kidney function, creatinine still staying above 3 with BUN in the 80s but electrolyte abnormality and uric acid continues to improve. Potassium normalized and phosphorus and uric acid improving. Review of Systems Review of Systems: All systems reviewed & are unremarkable except as noted in Subjective Physical Exam Constitutional: WD/WN, vitals as above no acute distress Eyes: + anicteric sclerae Respiratory: Auscultation: + diminished lung sounds and + crackles Cardiovascular: Rate/Rhythm: regular rate and regular rhythm Heart Sounds: normal S1 and normal S2 Extremities: + edema (Trace ) Skin: no rashes, warm and dry Neurologic: no focal motor deficits Psychiatric: Orientation: alert and oriented x 3 Results & Data Vital Signs (Past 12 Hours) Vital Signs Temp Pulse Resp BP Pulse Ox Pulse Ox O2 Del Method 12/27/24 08:28 Nasal Cannula 12/27/24 07:31 83 18 94 Nasal Cannula 12/27/24 07:00 94 12/27/24 01:45 83 18 92 Nasal Cannula 12/27/24 00:19 37.2 C 80 20 131/68 94 Nasal Cannula 12/26/24 23:07 Nasal Cannula O2 Del Method O2 Flow Rate O2 Flow Rate 12/27/24 08:28 9 12/27/24 07:31 11 12/27/24 07:00 Nasal Cannula 9 12/27/24 01:45 9 12/27/24 00:19 9 12/26/24 23:07 9 PG Care Time/CCT Total # of Minutes Spent Total Time Spent with Patient: Total time spent is greater than 50% in coordination of care (as documented) at patient's floor/unit and/or counseling patient: Coding Level of Care Code 23770 SUB INP/OBS CARE 2/35MIN Diagnoses Acute kidney injury superimposed on CKD N17.9; N18.9 Hypoxia R09.02 Anemia D64.9 Tumor lysis syndrome E88.3 Small cell lung cancer C34.90
[2024-12-27 11:09] LABS: Basophils # (auto) 0.01 K/uL (0.00-0.20); Basophils % (auto) 0.2 %; Eosinophils # (auto) 0.03 K/uL (0.00-0.50); Eosinophils % (auto) 0.5 %; Immature Granulocytes # (auto) 0.01 K/uL (0.01-0.20); Immature Granulocytes % (auto) 0.2 %; Lymphocytes # (auto) 0.24 K/uL (1.20-3.40); Lymphocytes % (auto) 3.8 %; Monocytes # (auto) 0.03 K/uL (0.11-0.59); Monocytes % (auto) 0.5 %; Neutrophils # (auto) 5.98 K/uL (1.40-6.50); Neutrophils % (auto) 94.8 %; Polychromasia 1+; Tear Drop Cells 1+
--- NOTE | 2024-12-27 11:40 | Hospitalist Progress Note ---
Date of Service December 27, 2024 Assessment & Plan (1) Hypoxia: (2) SOB (shortness of breath): (3) Small cell lung cancer: (4) COPD with emphysema: (5) Pneumonia involving right lung: (6) Tumor lysis syndrome: Plan *12/27 - pneumonia appears to be improving; still not clear if there's an element of pulmonary edema but with tumor lysis and tenuous renal function holding off on trial of diuretics unless it's absolutely necessary so as to not "accidentally tip him" into requiring HD again. #s seem to be slowly trending in anaid right direction with ARF and tumor lysis - ongoing watchful waiting and supportive care for now. again as it relates to his goals of care, he absolutely expresses a "go down swinging" value system, so while he knows he is dying of the cancer, and further lines of treatment are less likely to be effective, his current inclination for his own mental peace of mind is to continue to pursue treatment options - he does not seem to have blind optimism or wishful thinking driving this, but rather just that his value system is to keep fighting until he decides it is time to stop. #Pneumonia CXR suggestive of evolving R side pneumonia along with increased oxygen requirement Continue ctx and azithromycin #Metastatic SCLC/AHRF/COPD/?CHF Patient on new chemotherapy since last week. He knows he has extensive disease and that his condition is with a very poor prognosis. He feels better after DuoNeb treatment and supplemental O2 and does not want much further treatment beyond this in the hospital - Continue supplemental O2, DuoNebs QID, IS, consider addition of steroids if O2 demand further increases - Will need two-step walk test & arrangement for nebulizer treatment at home prior to discharge - Consult his oncologist; he would like to speak with her while he is in the hospital regarding his condition - CXR on 12/25 showed mild CHF with possible trace pleural effusions, may be contributing to hypoxia - Echo done to evaluate for CHF: EF 60-65%, no significant change from prior #Tumor Lysis Syndrome Rasburicase started Today, K increased to 5.7, Ca stable at 8.2, Phos stable at 7.4, uric acid improved to 11.4 Nephrology consulted, appreciate recs Hold IVF in setting of possible fluid overload Monitor BMP, CA, PO4, Mg q12h No need for dialysis acutely #HTN/HLD-BPs mildly elevated - Continue home amlodipine, carvedilol - Continue rosuvastatin #AVE on CKD stage III/IV-creatinine elevated above baseline at 2.78. He previously required dialysis a few months ago temporarily. Follows with nephrology. He reports he has been taking p.o. without nausea or vomiting. His BNP was elevated at 500 and troponin minimally elevated at 29 down to 27 on recheck. ECG without ischemic changes. IV fluids not given due to concerns for possible CHF although he does not appear volume overloaded on exam - Follow BMP. If creatinine remains elevated, consider small amounts of IVF and need for HD. Cr 3.44 today, comparable to yesterday. #Anemia of chronic disease-hemoglobin low but stable from previous at 10.1, likely secondary to anemia of chronic disease and from antineoplastic therapy - Follow CBC #GERD-no acute issues - Continue lansoprazole DVT prophylaxis-heparin SQ Disposition-admit to medical floor with telemetry but suspect short stay. Two- step walk test prior to discharge for home O2 and needs home nebulizer on discharge Admission and Anticipated Discharge Date Admission Date: December 25, 2024 Supervising Physician Co-Signing Physician Notes hypoxia -CXR w RLL predominance - this & rapid worsening & green sputum - still overall fits more with pneumonia than decompensated CHF - if any worsneing in respiratory status would get noncontrast chest CT for more clarity (acute illness superimposed on presumed baseline COPD) -on zith/roceph tumor lysis -appreciate nephrology assistance -monitor closely -did need HD before but no acute indications yet - we discussed in depth; agree w nephro no clear indication for HD now, but also not clear that diuretics would be more benefit than harm - close watchful waiting -raspiricase given 12/25 -follow labs metastatic lung cancer -ongoing supportive care; we had a good and open discussion about his goals of care with this. he is aware that he's dying of this, but also that he wants to fight to any length he can until/unless he decides he's tired (which right now he's not) - we discussed that essentially he has a "go down swinging" mentality - and therefore while he knows that further lines of treatment are most likely to be less effective than previous lines, he wants to continue to pursue any treatment option he can. constipation -bowel regimen Subjective feeling about the same. breathing not too bad, still requiring a good deal of O2. cough with ongoing yellow/green and blood tinged sputum. is more sob when flat. would like to shower. nephrology input appreciated Review of Systems Review of Systems: All systems reviewed & are unremarkable except as noted in HPI & below Physical Exam Physical Exam: gen [id number] pleasant nad heent nc at mmm lungs more clear - still diminished air entry but better than yesterday (was listening at the end of a neb treatment today) but far less rales, no rhonchi no wheeze. mental status intact, no neuro deficits Results & Data Results & Data Vital Signs (Past 12 Hours) Vital Signs Temp Pulse Resp BP Pulse Ox Pulse Ox O2 Del Method 12/27/24 11:14 78 18 92 Nasal Cannula 12/27/24 11:04 Nasal Cannula 12/27/24 10:52 97.9 F 88 16 94 Nasal Cannula 12/27/24 08:28 Nasal Cannula 12/27/24 07:31 83 18 94 Nasal Cannula 12/27/24 07:00 94 12/27/24 01:45 83 18 92 Nasal Cannula 12/27/24 00:19 99.0 F 80 20 131/68 94 Nasal Cannula O2 Del Method O2 Flow Rate O2 Flow Rate 12/27/24 11:14 8 12/27/24 11:04 11 12/27/24 10:52 11 12/27/24 08:28 9 12/27/24 07:31 11 12/27/24 07:00 Nasal Cannula 9 12/27/24 01:45 9 12/27/24 00:19 9 PG Care Time/CCT Total # of Minutes Spent Total Time Spent with Patient: Total time spent is greater than 50% in coordination of care (as documented) at patient's floor/unit and/or counseling patient: Coding Level of Care Code 11199 SUB INP/OBS CARE 3/50MIN Diagnoses Hypoxia R09.02 SOB (shortness of breath) R06.02 Small cell lung cancer C34.90 COPD with emphysema J43.9 Pneumonia involving right lung J18.9 Tumor lysis syndrome E88.3
[2024-12-27] MEDS: SODIUM BICARBONATE 650 MG TAB PO SCH (12:36)
[2024-12-27 18:31] LABS: Calcium 8.2 mg/dl (8.6-10.3); Potassium 4.7 mmol/L (3.5-5.1)
[2024-12-27 18:37] LABS: BUN Creatinine Ratio 24.2 (10-20); Creatinine Clr Calc Pharmacy 20.4 ml/min
[2024-12-28] MEDS: methylPREDNISolone 125 MG/2 ML VIAL IV STA (01:00)
[2024-12-28] MEDS: diphenhydrAMINE 50 MG/ML VIAL IV STA (01:00)
[2024-12-28 06:23] LABS: Hemoglobin 10.4 g/dl (14.0-18.0); Mean Corpuscular Hemoglobin 30.8 pg (25.0-34.0); Mean Corpuscular Hgb Conc 32.5 g/dL (32.0-36.0); Mean Corpuscular Volume 94.7 fL (80.0-100.0); Mean Platelet Volume 11.5 fL (9.4-12.4); Platelet Count 61 K/uL (130-400); RDW Coefficient of Variation 15.3 % (11.5-14.5); RDW Standard Deviation 52.9 fL (36.4-46.3); Red Blood Count 3.38 M/uL (4.70-6.10); White Blood Count 5.15 K/ul (4.8-10.8)
[2024-12-28 06:45] LABS: Basophils # (auto) 0.02 K/uL (0.00-0.20); Basophils % (auto) 0.4 %; Eosinophils # (auto) 0.04 K/uL (0.00-0.50); Eosinophils % (auto) 0.8 %; Immature Granulocytes # (auto) 0.04 K/uL (0.01-0.20); Immature Granulocytes % (auto) 0.8 %; Lymphocytes # (auto) 0.29 K/uL (1.20-3.40); Lymphocytes % (auto) 5.6 %; Monocytes # (auto) 0.07 K/uL (0.11-0.59); Monocytes % (auto) 1.4 %; Neutrophils # (auto) 4.69 K/uL (1.40-6.50); Polychromasia 1+
[2024-12-28 06:52] LABS: BUN Creatinine Ratio 22.5 (10-20); Calcium 8.3 mg/dl (8.6-10.3); Creatinine Clr Calc Pharmacy 20.5 ml/min; Magnesium 2.5 mg/dl (1.7-2.4); Phosphorus 6.2 mg/dl (2.5-4.9); Potassium 4.8 mmol/L (3.5-5.1); Uric Acid 7.7 mg/dl (2.6-7.2)
--- NOTE | 2024-12-28 07:41 | Hospitalist Progress Note ---
Date of Service December 28, 2024 Assessment & Plan (1) Hypoxia: (2) SOB (shortness of breath): (3) Small cell lung cancer: (4) COPD with emphysema: (5) Pneumonia involving right lung: (6) Tumor lysis syndrome: Plan This patient is a 69-year-old male with a history of small cell lung cancer with mets to the liver/adrenal gland/bones/mediastinal lymph nodes s/p chemotherapy and then on maintenance immunotherapy with atezolizumab, now recently switched to lurbinectedin due to failure of atezolizumab currently undergoing radiation therapy, infective endocarditis, history of smoking, HTN, GERD, HLD, anemia, 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 He feels much improved after being placed on supplemental O2 and receiving a DuoNeb treatment. He states that he knows he has "bad cancer" and wants to minimize his time in the hospital. He is agreeable to stay temporarily, receive nebulizer treatments, and have home O2 arranged for discharge. He denies chest pains. He has abdominal bloating and some right isabelle ed abdominal pain likely from increased hepatomegaly and liver metastases. He was admitted for acute respiratory failure with hypoxemia in the setting of metastatic lung cancer. #Pneumonia -CXR (12/25): Mild CHF with possible trace pleural effusions. Right lower lung pneumonia -CXR(12/28): Stable right sided pneumonia ;no pleural effusion -Continue ceftriaxone and azithromycin #Metastatic SCLC/AHRF/COPD/?CHF Patient on new chemotherapy since last week. He knows he has extensive disease and that his condition is with a very poor prognosis. He feels better after DuoNeb treatment and supplemental O2 and does not want much further treatment beyond this in the hospital - Continue supplemental O2, DuoNebs QID, IS, consider addition of steroids if O2 demand further increases - Will need two-step walk test & arrangement for nebulizer treatment at home prior to discharge - Consult his oncologist; he would like to speak with her while he is in the hospital regarding his condition - CXR on 12/25 showed mild CHF with possible trace pleural effusions, may be contributing to hypoxia - Echo done to evaluate for CHF: EF 60-65%, no significant change from prior #Tumor Lysis Syndrome Rasburicase started K+: 4.8; Na: 141; Uric acid 7.7, Calcium 8.3, Phosphorus 6. 2, Magnesium 2,5 Nephrology on board; Appreciate recommendations. Lasix 40 mg 1 dose given #HTN/HLD-BPs mildly elevated - Continue home amlodipine, carvedilol - Continue rosuvastatin #AVE on CKD stage III/IV-creatinine elevated above baseline at 3.25. He previously required dialysis a few months ago temporarily. Follows with nephrology. He reports he has been taking p.o. without nausea or vomiting. His BNP was elevated at 500 and troponin minimally elevated at 29 down to 27 on recheck. ECG without ischemic changes. IV fluids not given due to concerns for possible CHF although he does not appear volume overloaded on exam -According to nephro, he is not at point to start dialysis #Anemia of chronic disease-hemoglobin low but stable from previous at 10.1, likely secondary to anemia of chronic disease and from antineoplastic therapy - Follow CBC #GERD-no acute issues - Continue lansoprazole DVT prophylaxis-heparin SQ Disposition-admit to medical floor with telemetry but suspect short stay. Two- step walk test prior to discharge for home O2 and needs home nebulizer on discharge Admission and Anticipated Discharge Date Admission Date: December 25, 2024 Supervising Physician Co-Signing Physician Notes I personally examined the patient and verified funes points of history and exam, discussed case, and agree with decision making and plan documented by Dr. Rahman. Patient is a 69-year-old male with history of metastatic small cell lung cancer. Patient continues to have increased oxygen demand at 9 L supplemental O2. Chest x-ray today with stable pneumonia in right lower lung. Patient remains on ceftriaxone and azithromycin. AVE on CKD, nephrology following, increased diuresis today with IV Lasix. Reviewed goals of care with patient, he is hopeful to continue pursuing active treatment for his cancer, goal is to be at home with his family with focus on maintaining stability of pulmonary symptoms. Subjective Ongoing symptoms: Has significant cough and difficulty in breathing Overnight events: Couldn't sleep well due to cough and difficulty breathing New symptoms: Denied any new symptoms Review of Systems Review of Systems: reviewed, per HPI Physical Exam Physical Exam: Constitutional: Well appearing, No acute distress, PILCCOD: Negative HEENT: Atraumatic, Normocephalic, No conjunctival injection CVS: S1 S2 no murmur, Regular Rhythm, no LE edema Respiratory: BL equal air entry with NVBS. No rhonchi, wheezes, or crackles. No increased work of breathing GI: Soft, Nondistended, Nontender, Normal Bowel sounds + MSK: No gross deformities noted Skin: Warm, Dry, No rashes Neuro: Alert, Oriented to TPP, No Focal deficit Psych: Mood and Affect congruent, Cooperative on exam Results & Data Results & Data Vital Signs (Past 12 Hours) Vital Signs Temp Pulse Resp BP Pulse Ox O2 Del Method O2 Flow Rate 12/28/24 07:20 Nasal Cannula 9 12/28/24 07:17 36.3 C L 90 16 134/65 93 Nasal Cannula 9 12/28/24 00:34 103 H 24 88 L Nasal Cannula 12/27/24 19:47 36.6 C 80 20 133/57 L 98 Nebulizer 9 Resident Activity Tracking Resident Involvement: Resident Care Provided Care Provided: Adult Hospital Medicine
--- NOTE | 2024-12-28 10:24 | Nephrology Progress Note ---
Date of Service December 28, 2024 Assessment & Plan (1) Acute kidney injury superimposed on CKD: (2) Hypoxia: (3) Anemia: (4) Tumor lysis syndrome: (5) Small cell lung cancer: (6) Hyperphosphatemia: Plan 69-year-old male with stage IIIb CKD baseline creatinine around 1.6 lately with prior history of dialysis requiring AVE in the setting of tumor lysis syndrome in July. Kidney function recovered and was taken off of dialysis in September and TDC was removed on 09/24/24. Diagnosed during metastatic lung cancer in July 2024, completed 4 cycles of carboplatin/etoposide/atezolizumab followed by maintenance atezolizumab. Unfortunately despite this therapy he has suffered disease progression with metastasis to the mediastinum, liver and R scapula. He was started on second line treatment of lurbinectedin 12/21/24. Presented to [facility] on 12/24/24 with dyspnea. Lab was notable for acute kidney injury secondary to tumor lysis syndrome with elevated uric acid level of 16, hypocalcemia, hyperphosphatemia. Was clinically noted to be volume overloaded with pulmonary congestion and bilateral pleural effusion. Lab was notable for AVE, creatinine was 1.9 which rapidly worsened and up to 3.4 mg/dl associated with hyperkalemia and hyperphosphatemia. Slight improvement in kidney function noted and most of the electrolyte abnormality also improving with improvement in uric acid and phosphorus. Volume status remained acceptable with decent urine output. Continues to have high nasal cannula oxygen requirement now up to 9 L/min. Blood pressure well- controlled. Decent urine output. --Lasix 40 mg p.o. x 1 dose now --Continue on Lokelma daily --on sodium bicarbonate 650 mg twice a day. --Continue to monitor phosphorus, expect to see continued improvement, if not, will consider starting on phosphorus binder --No indication to start on dialysis at this time, hopefully kidney function will continue to improve slowly and dialysis can be avoided at least for now. Admission and Anticipated Discharge Date Admission Date: December 25, 2024 Veronica Christine was seen and evaluated this morning with his at bedside. He was sitting in bedside chair and denied any significant shortness of breath while using NC O2. Blood pressure acceptable, decent urine output. Weight slightly lower. Slight improvement over in kidney function noted although creatinine still staying above 3 with BUN in the 70s, most of the electrolyte abnormality improved, phosphorus and uric acid continues to improve. Review of Systems Review of Systems: All systems reviewed & are unremarkable except as noted in Subjective Physical Exam Constitutional: WD/WN, vitals as above no acute distress Eyes: + anicteric sclerae Neck: normal visual inspection Respiratory: Auscultation: + diminished lung sounds and + crackles Cardiovascular: Rate/Rhythm: regular rate and regular rhythm Heart Sounds: normal S1 and normal S2 Extremities: + edema (Trace ) Skin: no rashes, warm and dry Neurologic: no focal motor deficits Psychiatric: Orientation: alert and oriented x 3 Results & Data Vital Signs (Past 12 Hours) Vital Signs Temp Pulse Resp BP Pulse Ox O2 Del Method O2 Flow Rate 12/28/24 09:07 74 18 96 Nasal Cannula 9 12/28/24 07:20 Nasal Cannula 9 12/28/24 07:17 36.3 C L 90 16 134/65 93 Nasal Cannula 9 12/28/24 00:34 103 H 24 88 L Nasal Cannula 9 PG Care Time/CCT Total # of Minutes Spent Total Time Spent with Patient: Total time spent is greater than 50% in coordination of care (as documented) at patient's floor/unit and/or counseling patient: Coding Level of Care Code 64015 SUB INP/OBS CARE 3/50MIN Diagnoses Acute kidney injury superimposed on CKD N17.9; N18.9 Hypoxia R09.02 Anemia D64.9 Tumor lysis syndrome E88.3 Small cell lung cancer C34.90 Hyperphosphatemia E83.39
[2024-12-28] MEDS: FUROSEMIDE 40 MG TAB PO ONE (11:08)
--- NOTE | 2024-12-28 12:13 | XRay Report ---
XR chest 2V PA/lateral CLINICAL HISTORY: Pneumonia COMPARISON STUDY: 12/25/2024 FINDINGS: Heart size and pulmonary vasculature are normal. There is patchy consolidation at the right mid to lower lung, grossly stable. No pleural effusion or pneumothorax. IMPRESSION: Stable right-sided pneumonia. ACT 112: Negative or not required by law. Electronically signed by: Julito Nguyen M.D. 12/28/2024 12:12 PM
[2024-12-28] MEDS: SODIUM CHLOR 7% 4 ML NEB NEB SCH (19:54)
[2024-12-28] MEDS: MELATONIN 3 MG TAB PO SCH (20:41)
--- NOTE | 2024-12-29 06:54 | Hospitalist Progress Note ---
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 He feels much improved after being placed on supplemental O2 and receiving a DuoNeb treatment. He states that he knows he has "bad cancer" and wants to minimize his time in the hospital. He is agreeable to stay temporarily, receive nebulizer treatments, and have home O2 arranged for discharge. He denies chest pains. He has abdominal bloating and some right isabelle ed abdominal pain likely from increased hepatomegaly and liver metastases. He was admitted for acute respiratory failure with hypoxemia in the setting of metastatic lung cancer. #Pneumonia -Still on 9l Oxygen -CXR (12/25): Mild CHF with possible trace pleural effusions. Right lower lung pneumonia -CXR(12/28): Stable right sided pneumonia ;no pleural effusion -CXR(12/29): Stable Pneumonia -Continue ceftriaxone and azithromycin - Pulmonary consultation for increased O2 requirement and no improvement of Pneumonia noted on Xray #Metastatic SCLC/AHRF/COPD/?CHF Patient on new chemotherapy since last week. He knows he has extensive disease and that his condition is with a very poor prognosis. He feels better after DuoNeb treatment and supplemental O2 and does not want much further treatment beyond this in the hospital - Continue supplemental O2, DuoNebs QID, IS, consider addition of steroids if O2 demand further increases - Will need two-step walk test & arrangement for nebulizer treatment at home prior to discharge - Consult his oncologist; he would like to speak with her while he is in the hospital regarding his condition - CXR on 12/25 showed mild CHF with possible trace pleural effusions, may be contributing to hypoxia - Echo done to evaluate for CHF: EF 60-65%, no significant change from prior #Tumor Lysis Syndrome Rasburicase started K+: 4.8; Na: 141; Uric acid 7.7, Calcium 8.3, Phosphorus 6. 2, Magnesium 2,5 Nephrology on board; Appreciate recommendations. Lasix 40 mg 1 dose given #HTN/HLD-BPs mildly elevated - Continue home amlodipine, carvedilol - Continue rosuvastatin #AVE on CKD stage III/IV-creatinine elevated above baseline at 3.25. He p reviously required dialysis a few months ago temporarily. Follows with nephrology. He reports he has been taking p.o. without nausea or vomiting. His BNP was elevated at 500 and troponin minimally elevated at 29 down to 27 on recheck. ECG without ischemic changes. IV fluids not given due to concerns for possible CHF although he does not appear volume overloaded on exam -According to nephro, he is not at point to start dialysis #Anemia of chronic disease-hemoglobin low but stable from previous at 10.1, likely secondary to anemia of chronic disease and from antineoplastic therapy - Follow CBC #GERD-no acute issues - Continue lansoprazole DVT prophylaxis-heparin SQ Disposition-med surg Admission and Anticipated Discharge Date Admission Date: December 25, 2024 Supervising Physician Co-Signing Physician Notes I personally examined the patient and verified funes points of history and exam, discussed case, and agree with decision making and plan documented by Dr. Rahman. Patient is a 69-year-old male with history of metastatic small cell lung cancer on admission for acute hypoxic respiratory failure in setting of tumor lysis syndrome. Patient really struggling to wean oxygen requirement and hopeful to return home. Received 40 mg IV furosemide in setting of AVE yesterday. Chest x- ray with unchanged pneumonia. Agree with pulmonary consultation. Subjective Emmett looked better than yesterday. He mentioned he slept well . Trazodone and Melatonin helped him sleep. He is still on 9l of Oxygen. Denied any new concerns Review of Systems Review of Systems: As per HPI Physical Exam Physical Exam: Constitutional: Well appearing, No acute distress, PILCCOD: Negative HEENT: Atraumatic, Normocephalic, No conjunctival injection CVS: S1 S2 no murmur, Regular Rhythm, no LE edema Respiratory: BL equal air entry with NVBS. No rhonchi, wheezes, or crackles. No increased work of breathing GI: Soft, Nondistended, Nontender, Normal Bowel sounds + MSK: No gross deformities noted Skin: Warm, Dry, No rashes Neuro: Alert, Oriented to TPP, No Focal deficit Psych: Mood and Affect congruent, Cooperative on exam Results & Data Results & Data Vital Signs (Past 12 Hours) Vital Signs Temp Pulse Resp BP Pulse Ox O2 Del Method O2 Flow Rate 12/28/24 20:15 High Flow Nasal Cannula 9 12/28/24 19:55 80 18 95 Nasal Cannula 9 12/28/24 19:12 36.5 C 79 18 126/64 96 Nasal Cannula 9
[2024-12-29 07:41] LABS: Hematocrit (blood only) 31.7 % (42.0-52.0); Mean Corpuscular Hemoglobin 29.9 pg (25.0-34.0); Mean Corpuscular Hgb Conc 31.5 g/dL (32.0-36.0); Mean Corpuscular Volume 94.9 fL (80.0-100.0); Mean Platelet Volume 11.8 fL (9.4-12.4); Platelet Count 59 K/uL (130-400); RDW Coefficient of Variation 15.3 % (11.5-14.5); RDW Standard Deviation 52.7 fL (36.4-46.3); Red Blood Count 3.34 M/uL (4.70-6.10); White Blood Count 1.96 K/ul (4.8-10.8)
[2024-12-29 08:00] LABS: Bilirubin,Total 0.7 mg/dl (0.2-1.0); Calcium 8.5 mg/dl (8.6-10.3); Magnesium 2.4 mg/dl (1.7-2.4); Potassium 4.7 mmol/L (3.5-5.1)
[2024-12-29 08:07] LABS: Albumin Globulin Ratio 1.1 (0.9-2); BUN Creatinine Ratio 18.9 (10-20); Creatinine Clr Calc Pharmacy 18.8 ml/min; Globulin 2.7 gm/dl (2.5-4.0); Total Protein 5.7 gm/dl (6.0-8.3); Uric Acid 7.7 mg/dl (2.6-7.2)
--- NOTE | 2024-12-29 08:17 | Hematology/Oncology Prog Note ---
Date of Service December 29, 2024 Assessment & Plan (1) Pneumonia involving right lung: (2) Acute kidney injury superimposed on CKD: (3) Tumor lysis syndrome: Plan -LDH, LFTs improving possibly indicating treatment response. -Renal function still not at baseline. -Cytopenias likely due to chemotherapy. Give G-CSF with filgrastim 480 mcg SC daily x 3 days if ANC drops below 500. Transfuse for hemoglobin less than 7.5 and platelet count less than 15,000. Admission and Anticipated Discharge Date Admission Date: December 25, 2024 Results & Data Vital Signs (Past 12 Hours) Vital Signs Pulse Resp BP Pulse Ox O2 Del Method O2 Flow Rate 12/29/24 07:21 75 18 145/67 H 94 Nasal Cannula 9.0 12/29/24 07:05 77 20 93 Nasal Cannula 9
--- NOTE | 2024-12-29 10:07 | Nephrology Progress Note ---
Date of Service December 29, 2024 Assessment & Plan (1) Acute kidney injury superimposed on CKD: (2) Hypoxia: (3) Anemia: (4) Tumor lysis syndrome: (5) Small cell lung cancer: (6) Hyperphosphatemia: Plan 69-year-old male with stage IIIb CKD baseline creatinine around 1.6 mg/dl lately with prior history of dialysis requiring AVE in the setting of tumor lysis syndrome in July. Kidney function recovered and was taken off of dialysis in September and TDC was removed on 09/24/24. Diagnosed during metastatic lung cancer in July 2024, completed 4 cycles of carboplatin/etoposide/atezolizumab followed by maintenance atezolizumab. Unfortunately despite this therapy he has suffered disease progression with metastasis to the mediastinum, liver and R scapula. He was started on second line treatment of lurbinectedin 12/21/24. Presented to [facility] on 12/24/24 with dyspnea. Lab was notable for acute kidney injury secondary to tumor lysis syndrome with elevated uric acid level of 16, hypocalcemia, hyperphosphatemia. Was clinically noted to be volume overloaded with pulmonary congestion and bilateral pleural effusion. Lab was notable for AVE, creatinine was 1.9 which rapidly worsened and up to 3.4 mg/dl associated with hyperkalemia and hyperphosphatemia. Relatively stable kidney function for last few days and most of the electrolyte abnormality also improving with improvement in uric acid and phosphorus. Volume status remained acceptable with decent urine output. Blood pressure well- controlled. Decent urine output. --Continue on Lokelma daily, sodium bicarbonate 650 mg twice a day. --monitor phosphorus, expect to see continued improvement, if not, will consider starting on phosphorus binder --No indication to start on dialysis at this time, hopefully kidney function will continue to improve slowly and dialysis can be avoided at least for now. Admission and Anticipated Discharge Date Admission Date: December 25, 2024 Veronica Christine was seen and evaluated this morning with his at bedside. He just came back to his room after getting radiation therapy this morning. Reports some improvement in shortness of breath, reports significant urine output after getting 1 dose of Lasix yesterday. Relatively stable kidney function, most of the electrolyte abnormality improved, phosphorus and uric acid continues to improve. BP fair. Significant pancytopenia noted with dropping WBC, platelet, hemoglobin 10.0. Review of Systems Review of Systems: All systems reviewed & are unremarkable except as noted in Subjective Physical Exam Constitutional: WD/WN, vitals as above no acute distress Eyes: + anicteric sclerae Neck: normal visual inspection Respiratory: Auscultation: + diminished lung sounds and + crackles Cardiovascular: Rate/Rhythm: regular rate and regular rhythm Heart Sounds: normal S1 and normal S2 Extremities: no edema Skin: no rashes, warm and dry Neurologic: no focal motor deficits Psychiatric: Orientation: alert and oriented x 3 Results & Data Vital Signs (Past 12 Hours) Vital Signs Pulse Resp BP Pulse Ox O2 Del Method O2 Flow Rate 12/29/24 08:45 High Flow Nasal Cannula 9 12/29/24 07:21 75 18 145/67 H 94 Nasal Cannula 9.0 12/29/24 07:05 77 20 93 Nasal Cannula 9 PG Care Time/CCT Total # of Minutes Spent Total Time Spent with Patient: Total time spent is greater than 50% in coordination of care (as documented) at patient's floor/unit and/or counseling patient: Coding Level of Care Code 40535 SUB INP/OBS CARE 2/35MIN Diagnoses Acute kidney injury superimposed on CKD N17.9; N18.9 Hypoxia R09.02 Anemia D64.9 Tumor lysis syndrome E88.3 Small cell lung cancer C34.90 Hyperphosphatemia E83.39
--- NOTE | 2024-12-29 12:34 | XRay Report ---
XR chest 2V PA/lateral CLINICAL HISTORY: Pneumonia COMPARISON STUDY: 12/28/2024 FINDINGS: Heart size and pulmonary vasculature are normal. Stable hyperexpanded lungs. Stable reticul ar and patchy opacity at the right lower lung. No pleural effusion or pneumothorax. IMPRESSION: Stable pneumonia. ACT 112: Negative or not required by law. Electronically signed by: Julito Nguyen M.D. 12/29/2024 12:33 PM
--- NOTE | 2024-12-29 17:27 | CT Scan Report ---
CT chest without contrast History: Hypoxemia Comparison: 12/17/2024 Technique: Helical CT imaging of the chest performed without IV contrast Dose reduction techniques were achieved by using automatic exposure control and/or adjustment of mA and/or kV according to patient size and/or use of iterative reconstruction technique. Findings: There is a new moderate right and small left pleural effusion. New peribronchovascular confluent opacity, primarily throughout the right lung and mildly seen in the left lower lobe consistent with pulmonary edema. The prior described primary nodular lesion in the left upper lobe centrally, is partially obscured, and appears grossly unchanged. No pneumothorax. Heart size is normal. Moderate to heavy coronary calcification. The thoracic aorta is normal in size. The pulmonary artery is normal in size. No significant pericardial effusion. The subcarinal lymph node is increased from prior, measuring 13 mm in short axis, previously 11 mm, however which may be reactive, given the short interval change, as well as the new appearance of volume overload. The central airway is clear. Limited visualized upper abdomen. Scattered lesions in the liver are again seen. No acute bony abnormalities. A few small sclerotic lesions in the spine are again seen. Impression: New pulmonary edema and pleural effusions, as above. Interval increase in mediastinal lymphadenopathy, however which may be reactive in the acute setting. Electronically signed by Pipo Celeste 12-29-2024 5:26 PM
[2024-12-30 06:44] LABS: Hematocrit (blood only) 30.5 % (42.0-52.0); Hemoglobin 9.9 g/dl (14.0-18.0); Mean Corpuscular Hemoglobin 30.7 pg (25.0-34.0); Mean Corpuscular Hgb Conc 32.5 g/dL (32.0-36.0); Mean Corpuscular Volume 94.4 fL (80.0-100.0); Mean Platelet Volume 12.3 fL (9.4-12.4); Platelet Count 62 K/uL (130-400); RDW Coefficient of Variation 15.2 % (11.5-14.5); RDW Standard Deviation 52.5 fL (36.4-46.3); Red Blood Count 3.23 M/uL (4.70-6.10); White Blood Count 0.69 K/ul (4.8-10.8)
[2024-12-30 07:20] LABS: Albumin Globulin Ratio 1.1 (0.9-2); BUN Creatinine Ratio 18.6 (10-20); Bilirubin,Total 0.7 mg/dl (0.2-1.0); Calcium 8.5 mg/dl (8.6-10.3); Creatinine Clr Calc Pharmacy 19.3 ml/min; Globulin 2.6 gm/dl (2.5-4.0); Phosphorus 5.3 mg/dl (2.5-4.9); Potassium 4.4 mmol/L (3.5-5.1); Total Protein 5.5 gm/dl (6.0-8.3); Uric Acid 7.9 mg/dl (2.6-7.2)
[2024-12-30 07:21] LABS: ALC (manual) 0.19 K/uL (1.2-3.4); ANC (manual) 0.42 K/uL (1.4-6.5); Basophils # (manual) 0.02 K/uL (0-0.2); Basophils % (manual) 3 %; Blast # (manual) 0.01 K/uL (0-0); Blast Cells % (manual) 1 %; Eosinophils # (manual) 0.01 K/uL (0-0.50); Eosinophils % (manual) 2 %; Lymphocytes # (manual) 0.19 K/uL (1.2-3.4); Lymphocytes % (manual) 28 %; Monocytes # (manual) 0.03 K/uL (0.11-0.59); Monocytes % (manual) 5 %; Neutrophils # (manual) 0.42 K/uL (1.40-6.50); Neutrophils % (manual) 61 %
[2024-12-30] MEDS: FILGRASTIM 480 MCG/1.6 ML VIAL SC SCH (08:29)
[2024-12-30] MEDS: FUROSEMIDE 40 MG/4 ML VIAL IV ONE (09:25)
--- NOTE | 2024-12-30 09:56 | Nephrology Progress Note ---
Date of Service December 30, 2024 Assessment & Plan (1) Acute kidney injury superimposed on CKD: (2) Hypoxia: (3) Anemia: (4) Tumor lysis syndrome: (5) Small cell lung cancer: (6) Hyperphosphatemia: Plan 69-year-old male with stage IIIb CKD baseline creatinine around 1.6 mg/dl lately with prior history of dialysis requiring AVE in the setting of tumor lysis syndrome in July. Kidney function recovered and was taken off of dialysis in September and TDC was removed on 09/24/24. Diagnosed during metastatic lung cancer in July 2024, completed 4 cycles of carboplatin/etoposide/atezolizumab followed by maintenance atezolizumab. Unfortunately despite this therapy he has suffered disease progression with metastasis to the mediastinum, liver and R scapula. He was started on second line treatment of lurbinectedin 12/21/24. Presented to [facility] on 12/24/24 with dyspnea. Lab was notable for acute kidney injury secondary to tumor lysis syndrome with elevated uric acid level of 16, hypocalcemia, hyperphosphatemia. Was clinically noted to be volume overloaded with pulmonary congestion and bilateral pleural effusion. Lab was notable for AVE, creatinine was 1.9 which rapidly worsened and up to 3.4 mg/dl associated with hyperkalemia and hyperphosphatemia. CT chest showed slight worsening of pleural effusion with continued pulmonary vascular congestion. Relatively stable kidney function for last few days and most of the electrolyte abnormality also improving with improvement in phosphorus. Uric acid staying relatively stable. Volume status remained acceptable with decent urine output. Blood pressure well-controlled. --Start on Lasix 40 mg IV daily --continue on Lokelma daily, sodium bicarbonate 650 mg twice a day. --monitor phosphorus, expect to see continued improvement, if not, will consider starting on phosphorus binder --No indication to start on dialysis at this time, hopefully kidney function will continue to improve slowly and dialysis can be avoided at least for now. Admission and Anticipated Discharge Date Admission Date: December 25, 2024 Veronica Christine was seen and evaluated this morning with his at bedside. He was quite upset and frustrated with significant pancytopenia and he feels the medication he is getting during admission especially with antibiotics causing his white cell count to drop that much. Relatively stable kidney function, most of the electrolyte abnormality improved, phosphorus continues to improve. BP fair. Review of Systems Review of Systems: All systems reviewed & are unremarkable except as noted in Subjective Physical Exam Constitutional: WD/WN, vitals as above no acute distress Eyes: + anicteric sclerae Neck: normal visual inspection Respiratory: Auscultation: + diminished lung sounds and + crackles Cardiovascular: Rate/Rhythm: regular rate and regular rhythm Heart Sounds: normal S1 and normal S2 Extremities: no edema Skin: no rashes, warm and dry Neurologic: no focal motor deficits Psychiatric: Orientation: alert and oriented x 3 Results & Data Vital Signs (Past 12 Hours) Vital Signs Pulse Resp BP Pulse Ox O2 Del Method O2 Flow Rate 12/30/24 09:46 High Flow Nasal Cannula 9 12/30/24 08:17 82 20 155/63 H 91 High Flow Nasal Cannula 10 12/30/24 07:05 84 18 94 Nasal Cannula 9 PG Care Time/CCT Total # of Minutes Spent Total Time Spent with Patient: Total time spent is greater than 50% in coordination of care (as documented) at patient's floor/unit and/or counseling patient: Coding Level of Care Code 60173 SUB INP/OBS CARE 3/50MIN Diagnoses Acute kidney injury superimposed on CKD N17.9; N18.9 Hypoxia R09.02 Anemia D64.9 Tumor lysis syndrome E88.3 Small cell lung cancer C34.90 Hyperphosphatemia E83.39
--- NOTE | 2024-12-30 11:36 | Pulmonary Consultation ---
Date of Consultation December 30, 2024 Assessment & Plan (1) Hypoxia: (2) SOB (shortness of breath): (3) Small cell lung cancer: (4) Pleural effusion: Plan Impression: 69-year-old male with extensive small cell lung cancer currently on immunotherapy second line due to progression of disease and undergoing consolidative radiation therapy. He has completed a course of antibiotics for community-acquired pneumonia but does have a history of Pseudomonas bacteremia. He is neutropenic but has not been febrile. CT scan shows increased interstitial markings differential of which would be pulmonary interstitial edema, pulmonary, lymphangitic cancer spread, chemo/immunotherapy pulmonary toxicity, or atypical infection. Infection appears to be less likely although the patient's procalcitonin is significantly elevated of unclear significance. CT findings are new compared to CT scan obtained 2 weeks ago Recommendations: 1. Pleural effusion: Pleural effusions are bilateral right greater than left. Patient's intake and output demonstrates that he is over 3 L positive. Agree wi th diuretics however this may take some time to resolve the pleural effusions if they are related to hydrostatic/oncotic fluid shifts. Discussed thoracentesis with the patient and his with attendant risks including hemorrhage, pneumothorax, need for additional invasive procedures. He is agreeable to proceed. This will allow for characterization of the pleural fluid and potentially offer the patient some relief. 2. Agree with plans for diuresis. Would target net -1 to 1.5 L per 24 hours as tolerated by kidney function. 3. In light of the patient's neutropenia and prior Pseudomonas bacteremia, will obtain repeat blood cultures at this point in time. Could consider bronchoscopy to evaluate for infection or pulmonary hemorrhage however the patient's current oxygen requirement makes this quite risky and the patient would like to hold off for now. 4. Cannot rule out potentially pulmonary ICI toxicity. Patient's current chemotherapeutic agents are an alkylating agents which are unlikely to cause pulmonary toxicity. Cardiac toxicity is also uncommon. The patient is aware that he has a noncurable cancer. He has had favorable responses but adverse effects have been present. He has a great desire to have a plan in place. We briefly touched on role of palliative care and how palliation of symptoms may offer him some security moving forward. Wants to go home. Advised him that it is unlikely he will be able to go home without supplemental oxygen and he should be prepared need oxygen moving forward as this may take some time to resolve. History of Present Illness Attending Physician: America Brito DO History of Present Illness Asked by hospitalist to assist in patient management this patient with extensive small cell lung cancer currently on chemo and radiation therapy admitted with hypoxemic respiratory failure and pulmonary infiltrates in the setting of tumor lysis syndrome and renal failure. History is obtained from review of electronic medical record as well as discussion with the patient and at bedside. The patient is a 69-year-old male who is known to me from admission back in July. The patient presented with abdominal pain. He was found to have probable liver metastases and IR guided biopsy of the liver was performed which demonstrated small cell carcinoma. Patient was seen by medical oncology at that point in time and received initial chemotherapy including carboplatin and etoposide and atezolizumab. His treatment was complicated by tumor lysis syndrome which required rasburicase and short-term dialysis. He also had Pseudomonas bacteremia and neutropenic fever. Eventually completed course of therapy and was placed on maintenance immunotherapy with atezolizumab and is undergoing consolidation radiation therapy. Due to progression of disease he was transitioned to lurbinectedin. Patient was admitted to the hospital 12/24/2024 with complaints of hypoxemia and constipation. He was found to be in kidney failure and nephrology consultation was obtained. He is placed on antibiotics for presumptive pneumonia as chest x- ray demonstrated consolidative changes in the bilateral lower lobes. Cultures have remained negative. Unfortunately his oxygen requirement has continued to increase. Patient is currently neutropenic with an ANC of less than 500. His creatinine remains elevated at 3.45 with a BUN of 64. Uric acid is elevated at 7.9 with a phosphorus of 5.3. BNP is elevated at 310 and procalcitonin is elevated at 15.1 No cultures have been obtained during this hospitalization. Patient has been empirically treated with Rocephin and azithromycin and has completed 5 days of both therapies without significant improvement in his oxygenation status. CT of the chest was obtained last night which demonstrated increased interstitial markings with bilateral pleural effusions. Allergies Allergy/AdvReac Type Severity Reaction Status Date / Time No Known Allergies Allergy Unverified 12/26/24 12:00 Home Medications Medication Instructions Recorded Confirmed Type betamethasone dipropionate 0.05 % 1 applic topical BID PRN skin 08/03/21 0 12/24/24 Rx topical cream irritation #45 grams triamcinolone acetonide 0.1 % 1 applic topical BID PRN Dry 08/03/21 12/24/24 Rx topical cream scaling areas #15 grams lansoprazole 30 mg capsule,delayed 30 mg PO QAM heart burn 07/12/24 12/24/24 History release blood-glucose meter (OneTouch #1 ea 07/21/24 12/24/24 Rx Verio Flex Start kit) blood-glucose meter (OneTouch #1 ea 07/22/24 12/24/24 Rx Verio Flex Start kit) rosuvastatin 10 mg tablet 10 mg PO QPM #90 tabs 07/22/24 12/24/24 Rx amlodipine 5 mg tablet (Norvasc) 5 mg PO QAM #30 tabs 08/03/24 12/24/24 Rx allopurinol 100 mg tablet 100 mg PO QAM 10/28/24 12/24/24 History sildenafil (pulm.hypertension) 20 20 mg PO 3XWK 12/01/24 12/24/24 History mg tablet (Revatio) trazodone 50 mg tablet 50 mg PO HS PRN Sleep 12/01/24 12/24/24 History simethicone 250 mg capsule (Gas-X) 250 mg PO DAILY PRN Abdominal 12/21/24 12/24/24 History Discomfort acetaminophen 500 mg tablet 500 mg PO Q6H PRN Pain 12/24/24 12/24/24 History (Tylenol Extra Strength) carvedilol 25 mg tablet 25 mg PO AMHS 12/24/24 12/24/24 History finasteride 5 mg tablet 5 mg PO QAM 12/24/24 12/24/24 History magnesium oxide 400 mg (241.3 mg 400 mg PO BID 12/24/24 12/24/24 History magnesium) tablet vitamin B complex-vitamin C-folic 1 tab PO DAILY 12/24/24 12/24/24 History acid 0.8 mg tablet (Aurelia-Moar) Patient History Medical History Bacterial endocarditis Infective endocarditis of mitral valve Acute renal failure Sepsis Acute kidney injury Tobacco dependence due to cigarettes Full thickness rotator cuff tear History of COVID-2019, mild symptoms Surgical History S/P arthroscopy of left shoulder History of arthroscopy of right shoulder 18 years ago History of colonoscopy Hx of LASIK bilateral Family History Son Kidney disease Mother Cancer Brother Cancer oral Social History Smoking Status: Former smoker Tobacco Type: Cigarettes Age Started Using Tobacco: 9; Age Quit Using Tobacco: 69; packs per day: 1.5; Cigarettes Per Day: 30; Second Hand Exposure: Yes (childhood); Do You Dip or Chew Tobacco: No; Hx Alcohol Use: No Hx Substance Use: No Preferred Language: Cambodian Communication Ability: Effective Visual Impairment: Partially Limited Hearing Ability: Normal Agricultural Scientist Required: No Beliefs That Will Affect Care: None marital status: marital status details: but still living together Current Living Situation: Spouse current occupational status: retired How many Children do You have: 2 Feels Safe at Home: Yes Childhood Exposure to Second-Hand Smoke: Yes Diet: regular caffeine: Yes Dental Care, Regularly: Yes Physical Activity Frequency: Other Physical Activity Frequency Comment: Outside work Seatbelt Use: sometimes Sunscreen Use: Yes Assistive Devices: Cane Review of Systems Review of Systems: Please refer to hospitalist note. No additions or deletions Physical Exam Constitutional: WD/WN, vitals as above no acute distress Eyes: + anicteric sclerae Neck: normal visual inspection Respiratory: Auscultation: + diminished lung sounds and + crackles Cardiovascular: Rate/Rhythm: regular rate and regular rhythm Heart Sounds: normal S1 and normal S2 Extremities: no edema Skin: no rashes, warm and dry Neurologic: no focal motor deficits Psychiatric: Orientation: alert and oriented x 3 Results & Data Results & Data Vital Signs (Past 12 Hours) Vital Signs Pulse Resp BP Pulse Ox O2 Del Method O2 Flow Rate 12/30/24 09:46 High Flow Nasal Cannula 9 12/30/24 08:17 82 20 155/63 H 91 High Flow Nasal Cannula 10 12/30/24 07:05 84 18 94 Nasal Cannula 9 Critical Care Results & Data Vital Signs (Past 12 Hours) Vital Signs Pulse Resp BP Pulse Ox O2 Del Method O2 Flow Rate 12/30/24 09:46 High Flow Nasal Cannula 9 12/30/24 08:17 82 20 155/63 H 91 High Flow Nasal Cannula 10 12/30/24 07:05 84 18 94 Nasal Cannula 9 Lab & Micro Results (Past 24 Hours) RBC 3.23 M/uL (4.70-6.10) L 12/30/24 WBC 0.69 K/ul (4.8-10.8) L* 12/30/24 Hgb 9.9 g/dl (14.0-18.0) L 12/30/24 Hct 30.5 % (42.0-52.0) L 12/30/24 MCV 94.4 fL (80.0-100.0) 12/30/24 MCH 30.7 pg (25.0-34.0) 12/30/24 MCHC 32.5 g/dL (32.0-36.0) 12/30/24 RDW Standard Deviation 52.5 fL (36.4-46.3) H 12/30/24 RDW Coefficient of Variation 15.2 % (11.5-14.5) H 12/30/24 Plt Count 62 K/uL (130-400) L 12/30/24 MPV 12.3 fL (9.4-12.4) 12/30/24 ANC 0.42 K/uL (1.4-6.5) L* 12/30/24 ALC 0.19 K/uL (1.2-3.4) L 12/30/24 Neutrophils % (Manual) 61 % 12/30/24 Lymphocytes % (Manual) 28 % 12/30/24 Monocytes % (Manual) 5 % 12/30/24 Eosinophils % (Manual) 2 % 12/30/24 Basophils % (Manual) 3 % 12/30/24 Blast Cells % (Manual) 1 % 12/30/24 Neutrophils # (Manual) 0.42 K/uL (1.40-6.50) L 12/30/24 Lymphocytes # (Manual) 0.19 K/uL (1.2-3.4) L 12/30/24 Monocytes # (Manual) 0.03 K/uL (0.11-0.59) L 12/30/24 Eosinophils # (Manual) 0.01 K/uL (0-0.50) 12/30/24 Basophils # (Manual) 0.02 K/uL (0-0.2) 12/30/24 Blast Cells # (Manual) 0.01 K/uL (0-0) H 12/30/24 Na 141 mmol/L (136-145) 12/30/24 K 4.4 mmol/L (3.5-5.1) 12/30/24 Cl 111 mmol/L (98-107) H 12/30/24 CO2 23 mmol/L (21-32) 12/30/24 Anion Gap 7 (3-11) 12/30/24 BUN 64 mg/dl (6-23) H 12/30/24 Creatinine 3.45 mg/dl (0.6-1.4) H 12/30/24 BUN/Creatinine Ratio 18.6 (10-20) 12/30/24 Glu 92 mg/dl (70-99(Fasting)) 12/30/24 Ca 8.5 mg/dl (8.6-10.3) L 12/30/24 Phosphorus Level 5.3 mg/dl (2.5-4.9) H 12/30/24 Total Bilirubin 0.7 mg/dl (0.2-1.0) 12/30/24 AST 68 U/L (13-39) H 12/30/24 ALT 77 U/L (7-52) H 12/30/24 Alkaline Phosphatase 286 U/L (34-104) H 12/30/24 TP 5.5 gm/dl (6.0-8.3) L 12/30/24 Albumin 2.9 gm/dl (3.4-5.0) L 12/30/24 Globulin 2.6 gm/dl (2.5-4.0) 12/30/24 Albumin/Globulin Ratio 1.1 (0.9-2) 12/30/24 Calcium Level 8.5 mg/dl (8.6-10.3) L 12/30/24 05:57 Diagnostic Findings (Past 24 Hours) Chest X-Ray 12/29/24 11:22 XR chest 2V PA/lateral CLINICAL HISTORY: Pneumonia COMPARISON STUDY: 12/28/2024 FINDINGS: Heart size and pulmonary vasculature are normal. Stable hyperexpanded lungs. Stable reticular and patchy opacity at the right lower lung. No pleural effusion or pneumothorax. IMPRESSION: Stable pneumonia. ACT 112: Negative or not required by law. Electronically signed by: Julito Nguyen M.D. 12/29/2024 12:[address] 12/29/24 15:56 CT chest without contrast History: Hypoxemia Comparison: 12/17/2024 Technique: Helical CT imaging of the chest performed without IV contrast Dose reduction techniques were achieved by using automatic exposure control and/or adjustment of mA and/or kV according to patient size and/or use of iterative reconstruction technique. Findings: There is a new moderate right and small left pleural effusion. New peribronchovascular confluent opacity, primarily throughout the right lung and mildly seen in the left lower lobe consistent with pulmonary edema. The prior described primary nodular lesion in the left upper lobe centrally, is partially obscured, and appears grossly unchanged. No pneumothorax. Heart size is normal. Moderate to heavy coronary calcification. The thoracic aorta is normal in size. The pulmonary artery is normal in size. No significant pericardial effusion. The subcarinal lymph node is increased from prior, measuring 13 mm in short axis, previously 11 mm, however which may be reactive, given the short interval change, as well as the new appearance of volume overload. The central airway is clear. Limited visualized upper abdomen. Scattered lesions in the liver are again seen. No acute bony abnormalities. A few small sclerotic lesions in the spine are again seen. Impression: New pulmonary edema and pleural effusions, as above. Interval increase in mediastinal lymphadenopathy, however which may be reactive in the acute setting. Electronically signed by Pipo Celeste 12-29-2024 5:26 PM I & O Totals 24 Hours 12/29/24 12/30/24 12/31/24 06:59 06:59 06:59 Intake Total 302.5 / 302.5 702.5 / 702.5 252.5 / 252.5 Balance 302.5 / 302.5 702.5 / 702.5 252.5 / 252.5 Cumulative 12/23/24 23:12 thru 12/30/24 11:16 Intake Total 5730.833 Output Total 1252 Balance 4478.833 RT Ventilator Mngmt (Last Documented) Ventilator Ordered Settings Respiratory Rate [Resting 12/24/24 08 :11 Corrective 1] Respiratory Rate [Exercise O2 12/24/24 08:11 Corrective 1] Respiratory Rate [Exercise 12/24/24 08:11 Room Air] Respiratory Rate [Resting] 20 12/24/24 08:11 Respiratory Rate 12/30/24 08:17 Ventilator - PT Measurements Respiratory Rate [Resting 20 Corrective 1] Respiratory Rate [Exercise O2 16 Corrective 1] Respiratory Rate [Exercise 16 Room Air] Respiratory Rate [Resting] 20 Respiratory Rate 20 PG Care Time/CCT Total # of Minutes Spent Total Time Spent with Patient: Total time spent is greater than 50% in coordination of care (as documented) at patient's floor/unit and/or counseling patient: Coding Level of Care Code 78694 INT INP/OBS CARE 3/75MIN Diagnoses Hypoxia R09.02 SOB (shortness of breath) R06.02 Small cell lung cancer C34.90 Pleural effusion J90
--- NOTE | 2024-12-30 12:50 | Procedure Note ---
Procedure Note Date of Service December 30, 2024 Procedure: Diagnostic therapeutic ultrasound-guided catheter thoracentesis Jute Bag Sewer: Dr. Remigio Smith Indication: Pleural effusion Consent: Signed by significant other and verified with timeout prior to procedure Anesthesia: 8 mL's 1% lidocaine without epinephrine local. Procedure: Consent was verified and timeout performed. Appropriate imaging studies were reviewed prior to the procedure. Patient was placed in a seated position and limited thoracic ultrasound was performed of the right chest. See separate imaging. Site appropriate for thoracentesis was selected. The skin was prepped and draped in normal sterile fashion. Lidocaine was used for local analgesia. Fluid was aspirated under direct ultrasound visualization via the finder needle. A small skin jules was made with the scalpel and the catheter over the needle apparatus was advanced over the rib into the pleural space. Using the syringe one-way valve system, a total of 600 mL's of clear yellow fluid was removed. Procedure was terminated due to inability to withdraw additional fluid. The catheter was removed and observed to be intact. A sterile dressing was applied. Post procedure chest x-ray was ordered. Postprocedural ultrasound was performed which demonstrated minimal residual fluid. Lung sliding was noted Fluid was sent for cytology, cell count differential, Gram stain and culture, AFB stain and culture, LDH, pH, glucose, and total protein. The patient tolerated the procedure well without obvious complication [facility] Procedure Codes (Charges) Pulmonary/Thoracic Procedure 1: Pulmonary and Thoracic: 18450 Thoracentesis w imaging Coding CPT Codes Pulmonary/Thoracic - Pulmonary and Thoracic: 38069 Thoracentesis w imaging ([id number]) Additional Codes Date of Service ([facility].SURGERY)
[2024-12-30] MEDS: cefTRIAXone SODIUM 1,000 MG/50 ML BAG IV SCH (12:57)
--- NOTE | 2024-12-30 13:04 | XRay Report ---
XR chest 1V portable CLINICAL HISTORY: S/P Thoracentesis COMPARISON STUDY: 12/29/2024 FINDINGS: Heart size and pulmonary vasculature are normal. Prior right pleural effusion has resolved. There is stable diffuse reticular and patchy opacity throughout the majority of the right lung and a t the left lung base. No pneumothorax seen. IMPRESSION: No pneumothorax. Otherwise as described. ACT 112: Negative or not required by law. Electronically signed by: Julito Nguyen M.D. 12/30/2024 1:03 PM
[2024-12-30 13:25] LABS: Glucose Pleural Fluid 147 mg/dl; LDH Pleural Fluid 225 U/L; Total Protein Pleural Fluid < 3.0 gm/dl
[2024-12-30 13:55] LABS: Appearance Pleural Fluid Clear; Color Pleural Fluid Yellow; RBC Pleural Fluid Auto < 2000 /uL; Source Pleural Fluid Right Lung; WBC Pleural Fluid Auto 53 /uL
[2024-12-30 14:50] LABS: Lymphocytes, Fluid 11 %; Mono,Macrophage,Mesothelial 81 %; Neutrophils, Fluid 8 %
--- NOTE | 2024-12-30 15:39 | Hospitalist Progress Note ---
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 He feels much improved after being placed on supplemental O2 and receiving a DuoNeb treatment. He states that he knows he has "bad cancer" and wants to minimize his time in the hospital. He is agreeable to stay temporarily, receive nebulizer treatments, and have home O2 arranged for discharge. He denies chest pains. He has abdominal bloating and some right sided abdominal pain likely from increased hepatomegaly and liver metastases. He was admitted for acute respiratory failure with hypoxemia in the setting of metastatic lung cancer. #Pneumonia -Still on 9l Oxygen -CXR (12/25): Mild CHF with possible trace pleural effusions. Right lower lung pneumonia -CXR(12/28): Stable right sided pneumonia ;no pleural effusion -CXR(12/29): Stable Pneumonia -Continue ceftriaxone and azithromycin - Pulmonary consultation for increased O2 requirement and no improvement of Pneumonia noted on Xray. Appreciate pulmonology recommendations #Metastatic SCLC/AHRF/COPD/?CHF Patient on new chemotherapy since last week. He knows he has extensive disease and that his condition is with a very poor prognosis. He feels better after DuoNeb treatment and supplemental O2 and does not want much further treatment beyond this in the hospital - Continue supplemental O2, DuoNebs QID, IS, consider addition of steroids if O2 demand further increases - Will need two-step walk test & arrangement for nebulizer treatment at home prior to discharge - Consult his oncologist; he would like to speak with her while he is in the hospital regarding his condition - CXR on 12/25 showed mild CHF with possible trace pleural effusions, may be contributing to hypoxia - Echo done to evaluate for CHF: EF 60-65%, no significant change from prior #Tumor Lysis Syndrome -Rasburicase started -K+: 4.8; Na: 141; Uric acid 7.7, Calcium 8.3, Phosphorus 6. 2, Magnesium 2,5 -Nephrology on board; Appreciate recommendations. Lasix 40 mg 1 dose given #HTN/HLD-BPs mildly elevated - Continue home amlodipine, carvedilol - Continue rosuvastatin #AVE on CKD stage III/IV-creatinine elevated above baseline at 3.25. He previously required dialysis a few months ago temporarily. Follows with nephrology. He reports he has been taking p.o. without nausea or vomiting. His BNP was elevated at 500 and troponin minimally elevated at 29 down to 27 on recheck. ECG without ischemic changes. IV fluids not given due to concerns for possible CHF although he does not appear volume overloaded on exam -According to nephro, he is not at point to start dialysis #Anemia of chronic disease-hemoglobin low but stable from previous at 10.1, likely secondary to anemia of chronic disease and from antineoplastic therapy - Follow CBC #GERD-no acute issues - Continue lansoprazole DVT prophylaxis-heparin SQ Disposition-med surg Admission and Anticipated Discharge Date Admission Date: December 25, 2024 Supervising Physician Co-Signing Physician Notes I personally examined the patient and verified funes points of history and exam, discussed case, and agree with decision making and plan documented by Dr. Rahman. Patient is a 69-year-old male with history of metastatic small cell lung cancer on admission for acute hypoxic respiratory failure in setting of tumor lysis syndrome. Patient visiting with his and daughter at bedside. Thoracentesis today with removal of 600 cc of fluid. Pleural labs pending, blood cultures ordered. Patient remains on 9 L supplemental oxygen. Patient received additional 40 mg IV Lasix today. Reviewed neutropenic status and importance of hygiene and masks. Subjective Still on 9l of O2. Couldn't sleep well. No any overnight events. Has ongoing shortness of breath. Denied any new concerns. Review of Systems Review of Systems: As per HPI Physical Exam Constitutional: WD/WN, vitals as above no acute distress Eyes: + anicteric sclerae Neck: normal visual inspection Respiratory: Auscultation: + diminished lung sounds and + crackles Cardiovascular: Rate/Rhythm: regular rate and regular rhythm Heart Sounds: normal S1 and normal S2 Extremities: no edema Skin: no rashes, warm and dry Neurologic: no focal motor deficits Psychiatric: Orientation: alert and oriented x 3 Results & Data Results & Data Vital Signs (Past 12 Hours) Vital Signs Temp Pulse Resp BP Pulse Ox O2 Del Method O2 Flow Rate 12/30/24 14:27 36.6 C 75 16 127/75 93 Nasal Cannula 9.0 12/30/24 09:46 High Flow Nasal Cannula 9 12/30/24 08:17 82 20 155/63 H 91 High Flow Nasal Cannula 10 12/30/24 07:05 84 18 94 Nasal Cannula 9
[2024-12-31 06:42] LABS: Hematocrit (blood only) 28.1 % (42.0-52.0); Hemoglobin 9.1 g/dl (14.0-18.0); Mean Corpuscular Hemoglobin 30.4 pg (25.0-34.0); Mean Corpuscular Hgb Conc 32.4 g/dL (32.0-36.0); Mean Platelet Volume 11.4 fL (9.4-12.4); Platelet Count 70 K/uL (130-400); RDW Coefficient of Variation 15.1 % (11.5-14.5); RDW Standard Deviation 52.5 fL (36.4-46.3); Red Blood Count 2.99 M/uL (4.70-6.10); White Blood Count 0.69 K/ul (4.8-10.8)
[2024-12-31 06:48] LABS: BUN Creatinine Ratio 18.3 (10-20); Bilirubin,Total 0.5 mg/dl (0.2-1.0); Calcium 8.3 mg/dl (8.6-10.3); Creatinine Clr Calc Pharmacy 19.7 ml/min; Globulin 2.7 gm/dl (2.5-4.0); Phosphorus 4.6 mg/dl (2.5-4.9); Potassium 4.3 mmol/L (3.5-5.1); Total Protein 5.5 gm/dl (6.0-8.3); Uric Acid 8.4 mg/dl (2.6-7.2)
[2024-12-31 07:45] LABS: Dohle Bodies 1+
--- NOTE | 2024-12-31 07:51 | Hospitalist Progress Note ---
Date of Service December 31, 2024 Assessment & Plan (1) Pleural effusion: (2) SOB (shortness of breath): (3) Small cell lung cancer: (4) Pulmonary hypertension: (5) Pancytopenia due to antineoplastic chemotherapy: Plan This patient is a 69-year-old male with a history of 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 He feels much improved after being placed on supplemental O2 and receiving a DuoNeb treatment. He states that he knows he has "bad cancer" and wants to minimize his time in the hospital. He is agreeable to stay temporarily, receive nebulizer treatments, and have home O2 arranged for discharge. He denies chest pains. He was admitted for acute respiratory carlos lure with hypoxemia in the setting of metastatic lung cancer. #Pneumonia -Currently on 5l O2 -CXR (12/25): Mild CHF with possible trace pleural effusions. Right lower lung pneumonia -CXR(12/28): Stable right sided pneumonia ;no pleural effusion -CXR(12/29): Stable Pneumonia -Continue ceftriaxone and azithromycin - Pulmonary on board. Thoracentesis yesterday Appreciate pulmonology recommendations -Continue Lasix 40mg IV daily #Pancytopenia due to antineoplastic chemotherapy -Pancytopenia likely due to side effects of chemotherapy -Appreciate heme/onc recommendations. Continue Filgrastim 480 mcg SC #Metastatic SCLC -Heme/onc on board - Continue supplemental O2, DuoNebs QID, - Will need two-step walk test & arrangement for nebulizer treatment at home prior to discharge - Echo done to evaluate for CHF: EF 60-65%, no significant change from prior #Tumor Lysis Syndrome -Rasburicase started -Monitor electrolytes -Nephrology on board; Appreciate recommendations. 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 He previously required dialysis a few months ago temporarily. Follows with nephrology. He reports he has been taking p.o. without nausea or vomiting. His BNP was elevated at 500 and troponin minimally elevated at 29 down to 27 on recheck. ECG without ischemic changes. -According to nephro, he is not at point to start dialysis #Anemia of chronic disease -hemoglobin low but stable from previous at 10.1, likely secondary to anemia of chronic disease and from antineoplastic therapy - Follow CBC #GERD-no acute issues - Continue lansoprazole DVT prophylaxis-heparin SQ Disposition-med surg Admission and Anticipated Discharge Date Admission Date: December 25, 2024 Supervising Physician Co-Signing Physician Notes I personally examined the patient and verified funes points of history and exam, discussed case, and agree with decision making and plan documented by Dr. Rahman. Patient is a 69-year-old male with history of metastatic small cell lung cancer on admission for acute hypoxic respiratory failure in setting of tumor lysis syn drome. Patient reports improvement of respiratory symptoms, this is reflected in reduction of supplemental oxygen, now 5 L. Overall he is very fatigued today. Continuing IV diuresis. Given Epogen and Venofer today. Remains neutropenic. Hopeful for some improvements that he can return home soon. Subjective Significantly feeling better after thoracentesis yesterday. O2 requirement is down to 5l from 9l yesterday. Doesn't feel ready to go home yet. Reports feeling tired. Review of Systems Review of Systems: As per HPI Physical Exam Physical Exam: Constitutional: Well appearing, No acute distress, PILCCOD: Negative HEENT: Atraumatic, Normocephalic, No conjunctival injection CVS: S1 S2 no murmur, Regular Rhythm, no LE edema Respiratory: BL equal air entry with NVBS. No rhonchi, wheezes, or crackles. No increased work of breathing GI: Soft, Nondistended, Nontender, Normal Bowel sounds + MSK: No gross deformities noted Skin: Warm, Dry, No rashes Neuro: Alert, Oriented to TPP, No Focal deficit Psych: Mood and Affect congruent, Cooperative on exam Constitutional: WD/WN, vitals as above no acute distress Eyes: + anicteric sclerae Neck: normal visual inspection Respiratory: Auscultation: + diminished lung sounds and + crackles Cardiovascular: Rate/Rhythm: regular rate and regular rhythm Heart Sounds: normal S1 and normal S2 Extremities: no edema Skin: no rashes, warm and dry Neurologic: no focal motor deficits Psychiatric: Orientation: alert and oriented x 3 Results & Data Results & Data Vital Signs (Past 12 Hours) Vital Signs Pulse Resp Pulse Ox O2 Del Method O2 Flow Rate 12/31/24 06:54 90 19 90 Nasal Cannula 7 12/30/24 20:05 High Flow Nasal Cannula 7
[2024-12-31 08:08] LABS: Eosinophils # (auto) 0.01 K/uL (0.00-0.50); Eosinophils % (auto) 1.4 %; Immature Granulocytes # (auto) 0.02 K/uL (0.01-0.20); Immature Granulocytes % (auto) 2.9 %; Monocytes # (auto) 0.11 K/uL (0.11-0.59); Monocytes % (auto) 15.9 %; Neutrophils # (auto) 0.35 K/uL (1.40-6.50); Neutrophils % (auto) 50.8 %
--- NOTE | 2024-12-31 08:45 | Pulmonology Progress Note ---
Date of Service December 31, 2024 Assessment & Plan (1) Hypoxia: (2) SOB (shortness of breath): (3) Small cell lung cancer: (4) Pleural effusion: Plan Impression: 69-year-old male with extensive small cell lung cancer currently on immunotherapy second line due to progression of disease and undergoing consolidative radiation therapy. He has completed a course of antibiotics for community-acquired pneumonia but does have a history of Pseudomonas bacteremia. He is neutropenic but has not been febrile. Patient underwent thoracentesis which shows probable transudative fluid, cultures no growth to date and cytology pending. Recommendations: 1. Pleural effusion: Bilateral pleural effusion status postthoracentesis on the right. Fluid appears transudative. Cytology pending. Likely represents hydrostatic fluid. Again would recommend continued diuresis. His intake and output are not being tracked. Recommend initiation of I/O monitoring and daily weights. Will try and target output -1 to 1.5 L with attention to kidney function. 2. Follow-up on pleural fluid cytology 3. In light of the patient's neutropenia and prior Pseudomonas bacteremia, follow-up on blood cultures. Could consider bronchoscopy to evaluate for infection or pulmonary hemorrhage however the patient appears to be improving with current interventions. 4. Cannot rule out potentially pulmonary ICI toxicity however he has been off the immune checkpoint inhibitor for some time.. Patient's current chemotherapeutic agents are an alkylating agents which are unlikely to cause pulmonary toxicity. Cardiac toxicity is also uncommon. 5. Hypoxemia: Continue to wean oxygen as tolerated. Would defend oxygen saturations of 90%. Its likely the patient will need to go home on supplemental oxygen. He is comfortable with this. Will continue to follow with you Admission and Anticipated Discharge Date Admission Date: December 25, 2024 Subjective Patient seen and examined. MRI reviewed. Discussed with patient and spouse at bedside. The patient reports that he felt much better yesterday after the thoracentesis. He is quite active and may have worn himself out. He is not coughing or experiencing any phlegm. His oxygen has been able to be weaned somewhat. He is tolerating a diet. He does not feel ready to go home Review of Systems 2 Review of Systems: All systems reviewed & are unremarkable except as noted in Subjective Physical Exam 2 Constitutional: WD/WN, vitals as above no acute distress Eyes: + anicteric sclerae Neck: normal visual inspection Respiratory: Auscultation: + diminished lung sounds and + crackles Cardiovascular: Rate/Rhythm: regular rate and regular rhythm Heart Sounds: normal S1 and normal S2 Extremities: no edema Skin: no rashes, warm and dry Neurologic: no focal motor deficits Psychiatric: Orientation: alert and oriented x 3 Results & Data Results & Data Vital Signs (Past 12 Hours) Vital Signs Pulse Resp BP Pulse Ox O2 Del Method O2 Flow Rate 12/31/24 08:09 78 20 119/67 94 High Flow Nasal Cannula 7.0 12/31/24 06:54 90 19 90 Nasal Cannula 7 Intake and output: Not being tracked Laboratory Results 12/31/24 05:39 12/31/24 05:39 Pleural fluid studies: Differential: 8% neutrophils, 11% lymphocytes, 81% mesothelial cells pH 7.42 Total protein less than 3 Glucose 147 LDH 225 Gram stain with mononucleated cells and PMNs but no organisms, culture no growth to date AFB stains and cultures no growth to date Cytology pending Diagnostic Findings Postthoracentesis chest x-ray from yesterday independently reviewed. Persistent bilateral patchy parenchymal densities but no pneumothorax and resolved right pleural effusion PG Care Time/CCT Total # of Minutes Spent Total Time Spent with Patient: Total time spent is greater than 50% in coordination of care (as documented) at patient's floor/unit and/or counseling patient: Coding Level of Care Code 97484 SUB INP/OBS CARE 2/35MIN Diagnoses Hypoxia R09.02 SOB (shortness of breath) R06.02 Small cell lung cancer C34.90 Pleural effusion J90
[2024-12-31] MEDS ORDERED: FUROSEMIDE 40 MG TAB PO SCH (09:00)
[2024-12-31] MEDS: FUROSEMIDE 40 MG/4 ML VIAL IV SCH (09:31)
--- NOTE | 2024-12-31 09:43 | Nephrology Progress Note ---
Date of Service December 31, 2024 Assessment & Plan (1) Acute kidney injury superimposed on CKD: (2) Hypoxia: (3) Anemia: (4) Tumor lysis syndrome: (5) Small cell lung cancer: (6) Hyperphosphatemia: Plan 69-year-old male with stage IIIb CKD baseline creatinine around 1.6 mg/dl lately with prior history of dialysis requiring AVE in the setting of tumor lysis syndrome in July. Kidney function recovered and was taken off of dialysis in September and TDC was removed on 09/24/24. Diagnosed during metastatic lung cancer in July 2024, completed 4 cycles of carboplatin/etoposide/atezolizumab followed by maintenance atezolizumab. Unfortunately despite this therapy he has suffered disease progression with metastasis to the mediastinum, liver and R scapula. He was started on second line treatment of lurbinectedin 12/21/24. Presented to [facility] on 12/24/24 with dyspnea. Lab was notable for acute kidney injury secondary to tumor lysis syndrome with elevated uric acid level of 16, hypocalcemia, hyperphosphatemia. Was clinically noted to be volume overloaded with pulmonary congestion and bilateral pleural effusion. Lab was notable for AVE, creatinine was 1.9 which rapidly worsened and up to 3.4 mg/dl associated with hyperkalemia and hyperphosphatemia. Relatively stable kidney function for last few days and most of the electrolyte abnormality also improved. Volume status remained acceptable with decent urine output. Blood pressure well-controlled. --continue on Lasix 40 mg IV daily --continue on Lokelma daily, sodium bicarbonate 650 mg twice a day. --Epogen 40,000 units x 1 dose today and Venofer 200 mg daily. --No indication to start on dialysis at this time. Admission and Anticipated Discharge Date Admission Date: December 25, 2024 Veronica Christine was seen and evaluated this morning with his at bedside. He reports feeling better after right-sided paracentesis yesterday and had 600 mL of fluid removed. Cytology pending. Hemoglobin dropped to 9.1, remain neutropenic. Kidney function stable, electrolyte acceptable. BP fair. Review of Systems Review of Systems: All systems reviewed & are unremarkable except as noted in Subjective Physical Exam Constitutional: WD/WN, vitals as above no acute distress Eyes: + anicteric sclerae Cardiovascular: Rate/Rhythm: regular rate and regular rhythm Heart Sounds: normal S1 and normal S2 Extremities: no edema Skin: no rashes, warm and dry Neurologic: no focal motor deficits Psychiatric: Orientation: alert and oriented x 3 Results & Data Vital Signs (Past 12 Hours) Vital Signs Pulse Resp BP Pulse Ox O2 Del Method O2 Flow Rate 12/31/24 08:09 78 20 119/67 94 High Flow Nasal Cannula 7.0 12/31/24 06:54 90 19 90 Nasal Cannula 7 PG Care Time/CCT Total # of Minutes Spent Total Time Spent with Patient: Total time spent is greater than 50% in coordination of care (as documented) at patient's floor/unit and/or counseling patient: Coding Level of Care Code 89087 SUB INP/OBS CARE 2/35MIN Diagnoses Acute kidney injury superimposed on CKD N17.9; N18.9 Hypoxia R09.02 Anemia D64.9 Tumor lysis syndrome E88.3 Small cell lung cancer C34.90 Hyperphosphatemia E83.39
[2024-12-31] MEDS: IRON SUCROSE 200 MG in SODIUM CHLORIDE 0.9% 100 ML IV SCH (11:15)
[2024-12-31] MEDS: EPOETIN ALFA 40,000 UNITS/ML VIAL SQ STA (11:19)
--- NOTE | 2025-01-01 09:21 | Pulmonology Progress Note ---
Date of Service January 01, 2025 Assessment & Plan (1) Hypoxia: (2) SOB (shortness of breath): (3) Small cell lung cancer: (4) Pleural effusion: Plan Impression: 69-year-old male with extensive small cell lung cancer currently on immunotherapy second line due to progression of disease and undergoing consolidative radiation therapy. He has completed a course of antibiotics for community-acquired pneumonia but does have a history of Pseudomonas bacteremia. He is neutropenic but has not been febrile. Patient underwent thoracentesis which shows probable transudative fluid, cultures no growth to date and cytology negative. Recommendations: 1. Pleural effusion: Bilateral pleural effusion status postthoracentesis on the right. Fluid appears transudative. Cytology negative. Likely represents hydrostatic fluid. Again would recommend continued diuresis. His intake and output are not being tracked. Recommend initiation of I/O monitoring and daily weights. Will try and target output -1 to 1.5 L with attention to kidney function. 2. Blood cultures no growth to date. As long as he is clinically improving, do not see an indication to pursue bronchoscopy or additional aggressive interventions. 4. Cannot rule out potentially pulmonary ICI toxicity however he has been off the immune checkpoint inhibitor for some time. Patient's current chemotherapeutic agents are an alkylating agents which are unlikely to cause pulmonary toxicity. Cardiac toxicity is also uncommon. 5. Hypoxemia: Continue to wean oxygen as tolerated. Would defend oxygen saturations of 90%. Its likely the patient will need to go home on supplemental oxygen. He is comfortable with this. Patient's oxygen requirement can likely be met at home at this point in time. Will continue to follow with you. Disposition per patient and primary admitting service Admission and Anticipated Discharge Date Admission Date: December 25, 2024 Subjective Patient seen and examined. EMR reviewed. The patient reports he is feeling better. His oxygen requirement is decreased. He is coughing and expectorating some phlegm. He denies any fevers chills or night sweats overnight. He overall feels like he slept better last night and did not wake up short of breath. He is open to the prospect of going home on oxygen. Review of Systems Review of Systems: All systems reviewed & are unremarkable except as noted in Subjective Physical Exam Constitutional: WD/WN, vitals as above no acute distress Eyes: + anicteric sclerae Neck: normal visual inspection Respiratory: Auscultation: + diminished lung sounds and + crackles Cardiovascular: Rate/Rhythm: regular rate and regular rhythm Heart Sounds: normal S1 and normal S2 Extremities: no edema Skin: no rashes, warm and dry Neurologic: no focal motor deficits Psychiatric: Orientation: alert and oriented x 3 Results & Data Results & Data Vital Signs (Past 12 Hours) Vital Signs Temp Pulse Resp BP Pulse Ox O2 Del Method O2 Flow Rate 01/01/25 07:15 36.7 C 73 17 136/76 98 Nasal Cannula 5 01/01/25 07:02 83 20 93 Nasal Cannula 5 12/31/24 23:22 36.9 C 76 20 132/73 94 Nasal Cannula 5 Laboratory Results Labs pending Diagnostic Findings No new imaging PG Care Time/CCT Total # of Minutes Spent Total Time Spent with Patient: Total time spent is greater than 50% in coordination of care (as documented) at patient's floor/unit and/or counseling patient: Coding Level of Care Code 77654 SUB INP/OBS CARE 2/35MIN Diagnoses Hypoxia R09.02 SOB (shortness of breath) R06.02 Small cell lung cancer C34.90 Pleural effusion J90
[2025-01-01 09:35] LABS: BUN Creatinine Ratio 17.5 (10-20); Calcium 8.7 mg/dl (8.6-10.3); Creatinine Clr Calc Pharmacy 20.5 ml/min; Phosphorus 3.9 mg/dl (2.5-4.9); Uric Acid 8.7 mg/dl (2.6-7.2)
--- NOTE | 2025-01-01 09:44 | Nephrology Progress Note ---
Date of Service January 01, 2025 Assessment & Plan (1) Acute kidney injury superimposed on CKD: (2) Hypoxia: (3) Anemia: (4) Tumor lysis syndrome: (5) Small cell lung cancer: (6) Hyperphosphatemia: Plan 69-year-old male with stage IIIb CKD baseline creatinine around 1.6 mg/dl lately with prior history of dialysis requiring AVE in the setting of tumor lysis syndrome in July. Kidney function recovered and was taken off of dialysis in September and TDC was removed on 09/24/24. Diagnosed during metastatic lung cancer in July 2024, completed 4 cycles of carboplatin/etoposide/atezolizumab followed by maintenance atezolizumab. Unfortunately despite this therapy he has suffered disease progression with metastasis to the mediastinum, liver and R scapula. He was started on second line treatment of lurbinectedin 12/21/24. Presented to [facility] on 12/24/24 with dyspnea. Lab was notable for acute kidney injury secondary to tumor lysis syndrome with elevated uric acid level of 16, hypocalcemia, hyperphosphatemia. Was clinically noted to be volume overloaded with pulmonary congestion and bilateral pleural effusion. Lab was notable for AVE, creatinine was 1.9 which rapidly worsened and up to 3.4 mg/dl associated with hyperkalemia and hyperphosphatemia. Labs from this morning currently pending but kidney function has been relatively stable last few days. Potassium has been normal on Lokelma once a day. Volume status remained acceptable with decent urine output and net negative about 1 L. Blood pressure well-controlled. --continue on Lasix 40 mg IV daily, if continues to be significantly net negative, can be switched to orally by tomorrow. --continue on sodium bicarbonate 650 mg twice a day. --If potassium stays normal, will consider stopping Lokelma --Epogen 40,000 units x 1 dose given on 12/31/24, on Venofer 200 mg daily. Admission and Anticipated Discharge Date Admission Date: December 25, 2024 Veronica Christine was seen and evaluated this morning with his at bedside. He reports feeling a lot better today, slept well last night. Has been having decent urine output, net negative almost 1 L. Blood pressure stable. Lab from this morning is pending. Review of Systems Review of Systems: All systems reviewed & are unremarkable except as noted in Subjective Physical Exam Constitutional: WD/WN, vitals as above no acute distress Eyes: + anicteric sclerae Neck: normal visual inspection Respiratory: Auscultation: + diminished lung sounds and + crackles Cardiovascular: Rate/Rhythm: regular rate and regular rhythm Heart Sounds: normal S1 and normal S2 Extremities: no edema Skin: no rashes, warm and dry Neurologic: no focal motor deficits Psychiatric: Orientation: alert and oriented x 3 Results & Data Vital Signs (Past 12 Hours) Vital Signs Temp Pulse Resp BP Pulse Ox O2 Del Method O2 Flow Rate 01/01/25 07:15 36.7 C 73 17 136/76 98 Nasal Cannula 5 01/01/25 07:02 83 20 93 Nasal Cannula 5 12/31/24 23:22 36.9 C 76 20 132/73 94 Nasal Cannula 5 PG Care Time/CCT Total # of Minutes Spent Total Time Spent with Patient: Total time spent is greater than 50% in coordination of care (as documented) at patient's floor/unit and/or counseling patient: Coding Level of Care Code 91954 SUB INP/OBS CARE 2/35MIN Diagnoses Acute kidney injury superimposed on CKD N17.9; N18.9 Hypoxia R09.02 Anemia D64.9 Tumor lysis syndrome E88.3 Small cell lung cancer C34.90 Hyperphosphatemia E83.39
[2025-01-01 09:45] LABS: Hematocrit (blood only) 31.1 % (42.0-52.0); Mean Corpuscular Hemoglobin 30.6 pg (25.0-34.0); Mean Corpuscular Hgb Conc 32.2 g/dL (32.0-36.0); Mean Corpuscular Volume 95.1 fL (80.0-100.0); Mean Platelet Volume 10.7 fL (9.4-12.4); Platelet Count 86 K/uL (130-400); RDW Coefficient of Variation 15.2 % (11.5-14.5); RDW Standard Deviation 52.8 fL (36.4-46.3); Red Blood Count 3.27 M/uL (4.70-6.10)
--- NOTE | 2025-01-01 10:02 | Hospitalist Progress Note ---
Date of Service January 01, 2025 Assessment & Plan (1) Pleural effusion: (2) SOB (shortness of breath): (3) Small cell lung cancer: (4) Pulmonary hypertension: (5) Pancytopenia due to antineoplastic chemotherapy: Plan This patient is a 69-year-old male with a history of 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 He feels much improved after being placed on supplemental O2 and receiving a DuoNeb treatment. He states that he knows he has "bad cancer" and wants to minimize his time in the hospital. He is agreeable to stay temporarily, receive nebulizer treatments, and have home O2 arranged for discharge. He denies chest pains. He was admitted for acute respiratory carlos lure with hypoxemia in the setting of metastatic lung cancer. #Pneumonia -Currently on 5l O2 -CXR (12/25): Mild CHF with possible trace pleural effusions. Right lower lung pneumonia -CXR(12/28): Stable right sided pneumonia ;no pleural effusion -CXR(12/29): Stable Pneumonia -Continue ceftriaxone and azithromycin - Pulmonary on board. Thoracentesis yesterday Appreciate pulmonology recommendations -Continue Lasix 40mg IV daily #Pancytopenia due to antineoplastic chemotherapy -Pancytopenia likely due to side effects of chemotherapy -Appreciate heme/onc recommendations. Continue Filgrastim 480 mcg SC #Metastatic SCLC -Heme/onc on board - Continue supplemental O2, DuoNebs QID, - Will need two-step walk test & arrangement for nebulizer treatment at home prior to discharge - Echo done to evaluate for CHF: EF 60-65%, no significant change from prior #Tumor Lysis Syndrome -Rasburicase started -Monitor electrolytes -Nephrology on board; Appreciate recommendations. 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 He previously required dialysis a few months ago temporarily. Follows with nephrology. He reports he has been taking p.o. without nausea or vomiting. His BNP was elevated at 500 and troponin minimally elevated at 29 down to 27 on recheck. ECG without ischemic changes. -According to nephro, he is not at point to start dialysis #Anemia of chronic disease -hemoglobin low but stable from previous at 10.1, likely secondary to anemia of chronic disease and from antineoplastic therapy - Follow CBC #GERD-no acute issues - Continue lansoprazole DVT prophylaxis-heparin SQ Disposition-med surg Admission and Anticipated Discharge Date Admission Date: December 25, 2024 Supervising Physician Co-Signing Physician Notes I personally examined the patient and verified funes points of history and exam, discussed case, and agree with decision making and plan documented by Dr. Rahman. Patient is a 69-year-old male with history of metastatic small cell lung cancer on admission for acute hypoxic respiratory failure in setting of tumor lysis syn drome. Patient feeling stronger today, on 4L O2. Veronica Christine was seen and evaluated this morning with his at bedside. He reports feeling a lot better today, slept well last night. Oxygen requirement is down to 4 litre. Denied any new concerns Review of Systems Review of Systems: As per HPI Physical Exam Physical Exam: Constitutional: Well appearing, No acute distress, PILCCOD: Negative HEENT: Atraumatic, Normocephalic, No conjunctival injection CVS: S1 S2 no murmur, Regular Rhythm, no LE edema Respiratory: BL equal air entry with NVBS. No rhonchi, wheezes, or crackles. No increased work of breathing GI: Soft, Nondistended, Nontender, Normal Bowel sounds + MSK: No gross deformities noted Skin: Warm, Dry, No rashes Neuro: Alert, Oriented to TPP, No Focal deficit Psych: Mood and Affect congruent, Cooperative on exam Constitutional: WD/WN, vitals as above no acute distress Eyes: + anicteric sclerae Neck: normal visual inspection Respiratory: Auscultation: + diminished lung sounds and + crackles Cardiovascular: Rate/Rhythm: regular rate and regular rhythm Heart Sounds: normal S1 and normal S2 Extremities: no edema Skin: no rashes, warm and dry Neurologic: no focal motor deficits Psychiatric: Orientation: alert and oriented x 3 Results & Data Results & Data Vital Signs (Past 12 Hours) Vital Signs Temp Pulse Resp BP Pulse Ox O2 Del Method O2 Flow Rate 01/01/25 07:15 36.7 C 73 17 136/76 98 Nasal Cannula 5 01/01/25 07:02 83 20 93 Nasal Cannula 5 12/31/24 23:22 36.9 C 76 20 132/73 94 Nasal Cannula 5
[2025-01-01 10:11] LABS: White Blood Count 1.01 K/ul (4.8-10.8)
[2025-01-01 10:18] LABS: Dohle Bodies 2+; Polychromasia 1+; Toxic Granulation 1+
[2025-01-01 10:19] LABS: Basophils # (auto) 0.01 K/uL (0.00-0.20); Eosinophils # (auto) 0.03 K/uL (0.00-0.50); Lymphocytes # (auto) 0.17 K/uL (1.20-3.40); Lymphocytes % (auto) 16.8 %; Monocytes # (auto) 0.29 K/uL (0.11-0.59); Monocytes % (auto) 28.7 %; Neutrophils # (auto) 0.51 K/uL (1.40-6.50); Neutrophils % (auto) 50.5 %
[2025-01-02] MEDS: oxyCODONE HCL IR 5 MG TAB (IMMEDIATE RELEASE) PO STA ×2 (05:18→12:57)
[2025-01-02 07:19] LABS: Hematocrit (blood only) 30.5 % (42.0-52.0); Hemoglobin 9.7 g/dl (14.0-18.0); Mean Corpuscular Hemoglobin 30.5 pg (25.0-34.0); Mean Corpuscular Hgb Conc 31.8 g/dL (32.0-36.0); Mean Corpuscular Volume 95.9 fL (80.0-100.0); Mean Platelet Volume 11.3 fL (9.4-12.4); Platelet Count 97 K/uL (130-400); RDW Coefficient of Variation 15.3 % (11.5-14.5); RDW Standard Deviation 53.5 fL (36.4-46.3); Red Blood Count 3.18 M/uL (4.70-6.10)
[2025-01-02 07:37] LABS: BUN Creatinine Ratio 16.8 (10-20); Calcium 8.4 mg/dl (8.6-10.3); Creatinine Clr Calc Pharmacy 20.7 ml/min; Phosphorus 3.5 mg/dl (2.5-4.9); Potassium 3.6 mmol/L (3.5-5.1)
[2025-01-02 07:39] LABS: Nucleated RBC # (auto) 0.05 K/uL (0.00-0.12); Nucleated RBC % (auto) 2.4 %; White Blood Count 2.11 K/ul (4.8-10.8)
--- NOTE | 2025-01-02 08:22 | XRay Report ---
EXAM: XR chest 1V portable CLINICAL HISTORY: Respiratory failure. TECHNIQUE: An X-ray image of the chest is obtained in AP projection. COMPARISON: Compared to prior CXR on 12/30/2024. FINDINGS: Pulmonary Parenchyma: Mild interval improvement of the right lung patchy infiltration mainly in the right middle and lower lobes, with stable mild faint infiltration in the left lower zone. Unchanged bilateral mild CP angle blunting, mainly on the right side. Likely due to minimal effusion and basal atelectatic changes. No pulmonary nodules are identified. Heart and Mediastinum: Heart size and shape are normal. No mediastinal widening or masses. No hilar or mediastinal lymphadenopathy. Bony Thorax: Bony thorax appears intact without fractures or deformities. Soft Tissues: Soft tissues overlying the chest wall are unremarkable. IMPRESSION: 1. Mild interval improvement of the right lung patchy infiltration mainly on the right side. 2. Unchanged bilateral mild effusion (mainly on the right side). Electronically signed by Blake Marlow 01-02-2025 08:21 AM
[2025-01-02 08:59] LABS: ALC (manual) 0.59 K/uL (1.2-3.4); ANC (manual) 0.95 K/uL (1.4-6.5); Blast # (manual) 0.02 K/uL (0-0); Blast Cells % (manual) 1 %; Dohle Bodies 2+; Eosinophils # (manual) 0.04 K/uL (0-0.50); Eosinophils % (manual) 2 %; Lymphocytes # (manual) 0.59 K/uL (1.2-3.4); Lymphocytes % (manual) 28 %; Monocytes # (manual) 0.44 K/uL (0.11-0.59); Monocytes % (manual) 21 %; Myelocytes # (manual) 0.06 K/uL (0-0); Myelocytes % (manual) 3 %; Neutrophils # (manual) 0.95 K/uL (1.40-6.50); Neutrophils % (manual) 45 %; Polychromasia 1+; Toxic Granulation 2+
--- NOTE | 2025-01-02 10:37 | Hospitalist Progress Note ---
Date of Service January 02, 2025 Assessment & Plan (1) Pleural effusion: (2) SOB (shortness of breath): (3) Small cell lung cancer: (4) Pulmonary hypertension: (5) Pancytopenia due to antineoplastic chemotherapy: Plan This patient is a 69-year-old male with a history of 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 He feels much improved after being placed on supplemental O2 and receiving a DuoNeb treatment. He states that he knows he has "bad cancer" and wants to minimize his time in the hospital. He is agreeable to stay temporarily, receive nebulizer treatments, and have home O2 arranged for discharge. He denies chest pains. He was admitted for acute respiratory carlos lure with hypoxemia in the setting of metastatic lung cancer. #Pneumonia -Currently on 4l O2 -CXR (12/25): Mild CHF with possible trace pleural effusions. Right lower lung pneumonia -CXR(12/28): Stable right sided pneumonia ;no pleural effusion -CXR(12/29): Stable Pneumonia -Continue ceftriaxone and azithromycin - Pulmonary on board. Thoracentesis yesterday Appreciate pulmonology recommendations -Continue Lasix 40mg IV daily #Pancytopenia due to antineoplastic chemotherapy -Pancytopenia likely due to side effects of chemotherapy -Appreciate heme/onc recommendations. Continue Filgrastim 480 mcg SC #Metastatic SCLC -Heme/onc on board - Continue supplemental O2, DuoNebs QID, - Will need two-step walk test & arrangement for nebulizer treatment at home prior to discharge - Echo done to evaluate for CHF: EF 60-65%, no significant change from prior #Tumor Lysis Syndrome -Rasburicase started -Monitor electrolytes -Nephrology on board; Appreciate recommendations. 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 He previously required dialysis a few months ago temporarily. Follows with nephrology. He reports he has been taking p.o. without nausea or vomiting. His BNP was elevated at 500 and troponin minimally elevated at 29 down to 27 on recheck. ECG without ischemic changes. -According to nephro, he is not at point to start dialysis #Anemia of chronic disease -hemoglobin low but stable from previous at 10.1, likely secondary to anemia of chronic disease and from antineoplastic therapy - Follow CBC #GERD-no acute issues - Continue lansoprazole DVT prophylaxis-heparin SQ Disposition-med surg Admission and Anticipated Discharge Date Admission Date: December 25, 2024 Supervising Physician Co-Signing Physician Notes I personally examined the patient and verified funes points of history and exam, discussed case, and agree with decision making and plan documented by Dr. Rahman. Patient is a 69-year-old male with history of metastatic small cell lung cancer on admission for acute hypoxic respiratory failure in setting of tumor lysis syn drome. Continues with clinical improvement. Veronica Christine was seen and evaluated this morning with his Daughter at bedside. He reports feeling a lot better today, slept well last night. Oxygen requirement is down to 4 litre. Denied any new concerns Review of Systems Review of Systems: As per HPI Physical Exam Physical Exam: Constitutional: Well appearing, No acute distress, PILCCOD: Negative HEENT: Atraumatic, Normocephalic, No conjunctival injection CVS: S1 S2 no murmur, Regular Rhythm, no LE edema Respiratory: BL equal air entry with NVBS. No rhonchi, wheezes, or crackles. No increased work of breathing GI: Soft, Nondistended, Nontender, Normal Bowel sounds + MSK: No gross deformities noted Skin: Warm, Dry, No rashes Neuro: Alert, Oriented to TPP, No Focal deficit Psych: Mood and Affect congruent, Cooperative on exam Constitutional: WD/WN, vitals as above no acute distress Eyes: + anicteric sclerae Neck: normal visual inspection Respiratory: Auscultation: + diminished lung sounds and + crackles Cardiovascular: Rate/Rhythm: regular rate and regular rhythm Heart Sounds: normal S1 and normal S2 Extremities: no edema Skin: no rashes, warm and dry Neurologic: no focal motor deficits Psychiatric: Orientation: alert and oriented x 3 Results & Data Results & Data Vital Signs (Past 12 Hours) Vital Signs Temp Pulse Resp BP Pulse Ox O2 Del Method O2 Flow Rate 01/02/25 09:03 Nasal Cannula 4 01/02/25 07:19 75 18 94 Nasal Cannula 4 01/02/25 07:12 36.5 C 73 18 161/75 H 95 Room Air 01/02/25 05:04 128/72
[2025-01-02] MEDS: BUTT PASTE (ZINC OXIDE 16%) 171 APPLN/57 GM JAR EXT SCH (10:52)
--- NOTE | 2025-01-02 11:02 | Pulmonology Progress Note ---
Date of Service January 02, 2025 Assessment & Plan (1) Hypoxia: (2) SOB (shortness of breath): (3) Small cell lung cancer: (4) Pleural effusion: Plan Impression: 69-year-old male with extensive small cell lung cancer currently on immunotherapy second line due to progression of disease and undergoing consolidative radiation therapy. He has completed a course of antibiotics for community-acquired pneumonia but does have a history of Pseudomonas bacteremia. He is neutropenic but has not been febrile. Patient underwent thoracentesis which shows probable transudative fluid, cultures no growth to date and cytology negative. Oxygenation is improving Recommendations: 1. Pleural effusion: Bilateral pleural effusion status postthoracentesis on the right. Fluid appears transudative. Cytology negative. Likely represents hydrostatic fluid. Tolerating diuresis with improvement in oxygenation. Kidney function holding stable 2. Blood cultures no growth to date. As long as he is clinically improving, do not see an indication to pursue bronchoscopy or additional aggressive interventions. 4. Cannot rule out potentially pulmonary ICI toxicity however he has been off the immune checkpoint inhibitor for some time. Patient's current chemotherapeutic agents are an alkylating agents which are unlikely to cause pulmonary toxicity. Cardiac toxicity is also uncommon. 5. Hypoxemia: Continue to wean oxygen as tolerated. Would defend oxygen saturations of 90%. He is down to 2 L at this point in time. Would recommend formal two-step prior to discharge. Will continue to follow with you. Disposition per patient and primary admitting service. Patient can follow-up with Dr. Gonzalez in the outpatient setting if pulmonary follow up is needed. Admission and Anticipated Discharge Date Admission Date: December 25, 2024 Subjective Patient seen and examined. EMR reviewed. The patient's improved clinically. His oxygen requirements decreased. He was on 4 L on my exam and satting in the 97% range. Decreased him down to 2 L and he maintained oxygen saturations at or above 92%. He is not coughing or expectorating phlegm. No chest pain or palpitations Review of Systems 2 Review of Systems: All systems reviewed & are unremarkable except as noted in Subjective Physical Exam 2 Constitutional: WD/WN, vitals as above no acute distress Eyes: + anicteric sclerae Neck: normal visual inspection Respiratory: Auscultation: + diminished lung sounds and + crackles Cardiovascular: Rate/Rhythm: regular rate and regular rhythm Heart Sounds: normal S1 and normal S2 Extremities: no edema Skin: no rashes, warm and dry Neurologic: no focal motor deficits Psychiatric: Orientation: alert and oriented x 3 Results & Data Results & Data Vital Signs (Past 12 Hours) Vital Signs Temp Pulse Resp BP Pulse Ox O2 Del Method O2 Flow Rate 01/02/25 09:03 Nasal Cannula 4 01/02/25 07:19 75 18 94 Nasal Cannula 4 01/02/25 07:12 36.5 C 73 18 161/75 H 95 Room Air 01/02/25 05:04 128/72 Laboratory Results 01/02/25 06:45 01/02/25 06:45 Diagnostic Findings Chest x-ray from today was independently reviewed. There are persistent alveolar opacities however some clearing at the lung bases. PG Care Time/CCT Total # of Minutes Spent Total Time Spent with Patient: Total time spent is greater than 50% in coordination of care (as documented) at patient's floor/unit and/or counseling patient: Coding Level of Care Code 05610 SUB INP/OBS CARE 2/35MIN Diagnoses Hypoxia R09.02 SOB (shortness of breath) R06.02 Small cell lung cancer C34.90 Pleural effusion J90
--- NOTE | 2025-01-02 12:34 | Nephrology Progress Note ---
Date of Service January 02, 2025 Assessment & Plan (1) Acute kidney injury superimposed on CKD: Plan: Creatinine stable. Electrolytes normal. Volume status acceptable. Non-oliguric. No emergent indication for dialysis. AVE attributed to TLS. Baseline creatinine 1.6 mg/dL. History of AVE requiring HD in September. Continue furosemide to encourage negative fluid balance. Continue NaHCO3 as Rx. For hyperuricemia, allopurinol will be increased to 150 mg daily. Sam held. Document I/Os. Repeat serum metabolic profile tomorrow AM. Medications are appropriate for kidney function. (2) Anemia: Plan: Venofer 200 mg daily x 3/5 today. Epogen 40,000 units x 1 dose given on 12/31/24. (3) Tumor lysis syndrome: Plan: Increase allopurinol to 150 mg daily. (4) Small cell lung cancer: Plan: Plan of care discussed with Dr. Smith this AM. O2 requirement improving. Furosemide to encourage UOP. Goal is negative ~1 L/d. Titrate diuretic as needed. Admission and Anticipated Discharge Date Admission Date: December 25, 2024 Subjective No acute events overnight. Emmett is breathing comfortably this AM. No fevers or chills. Edema slowly improving. Overall, he feels reasonably well. Review of Systems Review of Systems: All systems reviewed & are unremarkable except as noted in HPI & below Physical Exam Constitutional: WD/WN, vitals as above well developed; no acute distress Eyes: + anicteric sclerae ENMT: Mouth: no oral mucosal abnormality and oral mucous membranes not dry Neck: normal visual inspection and trachea midline Respiratory: normal respiratory effort Auscultation: + diminished lung sounds and + rales Cardiovascular: Rate/Rhythm: regular rate Heart Sounds: normal S1 and normal S2 Extremities: + edema Musculoskeletal: Extremities: no cyanosis and no clubbing Skin: normal turgor; no jaundice Neurologic: Motor/Sensory: no tremor and no asterixis Psychiatric: Orientation: alert and oriented x 3 Results & Data Vital Signs (Past 12 Hours) Vital Signs Temp Pulse Resp BP Pulse Ox O2 Del Method O2 Flow Rate 01/02/25 11:09 73 18 90 Nasal Cannula 2 01/02/25 09:03 Nasal Cannula 4 01/02/25 07:19 75 18 94 Nasal Cannula 4 01/02/25 07:12 36.5 C 73 18 161/75 H 95 Room Air 01/02/25 05:04 128/72 Laboratory Results Laboratory Results - last 24 hr 01/02/25 06:45 WBC 2.11 L RBC 3.18 L Hgb 9.7 L Hct 30.5 L MCV 95.9 MCH 30.5 MCHC 31.8 L RDW Std Deviation 53.5 H RDW Coeff of Iraida 15.3 H Plt Count 97 L MPV 11.3 Absolute Nucleated RBC 0.05 Nucleated RBC % (auto) 2.4 Neutrophils % (Manual) 45 Lymphocytes % (Manual) 28 Monocytes % (Manual) 21 Eosinophils % (Manual) 2 Myelocytes % (Man) 3 Blast Cells % (Manual) 1 Neutrophils # (Manual) 0.95 L Total Absolute Neuts 0.95 L* Lymphocytes # (Manual) 0.59 L Total Abs Lymphocytes 0.59 L Monocytes # (Manual) 0.44 Eosinophils # (Manual) 0.04 Myelocytes # (Manual) 0.06 H Blast Cells # (Man) 0.02 H Toxic Granulation 2+ Dohle Bodies 2+ Polychromasia 1+ Sodium 143 Potassium 3.6 Chloride 109 H Carbon Dioxide 24 Anion Gap 10 BUN 54 H Creatinine 3.22 H Est Cr Clr Drug Dosing 20.7 eGFR 19.90 BUN/Creatinine Ratio 16.8 Glucose 89 Uric Acid 9.0 H Calcium 8.4 L Phosphorus 3.5 Albumin 2.8 L PG Care Time/CCT Total # of Minutes Spent Total Time Spent with Patient: Total time spent is greater than 50% in coordination of care (as documented) at patient's floor/unit and/or counseling patient: Coding Level of Care Code 16647 SUB INP/OBS CARE 3/50MIN Diagnoses Acute kidney injury superimposed on CKD N17.9; N18.9 Anemia D64.9 Tumor lysis syndrome E88.3 Small cell lung cancer C34.90
--- NOTE | 2025-01-03 06:52 | Hospitalist Progress Note ---
Date of Service January 03, 2025 Assessment & Plan (1) Pleural effusion: (2) SOB (shortness of breath): (3) Small cell lung cancer: (4) Pulmonary hypertension: (5) Pancytopenia due to antineoplastic chemotherapy: Plan This patient is a 69-year-old male with a history of 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 He feels much improved after being placed on supplemental O2 and receiving a DuoNeb treatment. He states that he knows he has "bad cancer" and wants to minimize his time in the hospital. He is agreeable to stay temporarily, receive nebulizer treatments, and have home O2 arranged for discharge. He denies chest pains. He was admitted for acute respiratory carlos lure with hypoxemia in the setting of metastatic lung cancer. #Pneumonia -Currently on 2l O2. Need 2 step o2 test before going home -CXR (12/25): Mild CHF with possible trace pleural effusions. Right lower lung pneumonia -CXR(12/28): Stable right sided pneumonia ;no pleural effusion -CXR(12/29): Stable Pneumonia -Continue ceftriaxone (Day 5) - Pulmonary sign off. -Continue Lasix 40mg IV daily #Pancytopenia due to antineoplastic chemotherapy -Pancytopenia likely due to side effects of chemotherapy -Appreciate heme/onc recommendations. Continue Filgrastim 480 mcg SC #Metastatic SCLC -Heme/onc on board - Continue supplemental O2, DuoNebs QID, - Will need two-step walk test & arrangement for nebulizer treatment at home prior to discharge - Echo done to evaluate for CHF: EF 60-65%, no significant change from prior #Tumor Lysis Syndrome -Rasburicase started -Monitor electrolytes -Nephrology on board; Appreciate recommendations. 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 He previously required dialysis a few months ago temporarily. Follows with nephrology. He reports he has been taking p.o. without nausea or vomiting. His BNP was elevated at 500 and troponin minimally elevated at 29 down to 27 on recheck. ECG without ischemic changes. -According to nephro, he is not at point to start dialysis #Anemia of chronic disease -hemoglobin low but stable from previous at 10.1, likely secondary to anemia of chronic disease and from antineoplastic therapy - Follow CBC #GERD-no acute issues - Continue lansoprazole DVT prophylaxis-heparin SQ Disposition-med surg Admission and Anticipated Discharge Date Admission Date: December 25, 2024 Supervising Physician Co-Signing Physician Notes I personally examined the patient and verified funes points of history and exam, discussed case, and agree with decision making and plan documented by Dr. Rahman. Patient is a 69-year-old male with history of metastatic small cell lung cancer on admission for acute hypoxic respiratory failure in setting of tumor lysis syndrome. Patient s/p thoracentesis on the right with transudative fluid and negative cytology. Diuresis improved respiratory function. Current oxygen requirement 2L, 2 step performed, patient was discharged with oxygen. Patient now on furosemide 60 mg p.o. every morning. Pancytopenia improving, no longer neutropenic. Continues to get Venofer, last dose tomorrow. Patient has radiation tomorrow morning. He is hopeful for discharge tomorrow. Plan is to proceed with next round of chemotherapy in early January. Veronica Christine was seen and evaluated this morning with his Daughter at bedside. He reports feeling a lot better today, slept well last night. Oxygen requirement is down to 2 litre. Would like to see one more day today.Denied any new concerns Review of Systems Review of Systems: As per HPI Physical Exam Physical Exam: Constitutional: Well appearing, No acute distress, PILCCOD: Negative HEENT: Atraumatic, Normocephalic, No conjunctival injection CVS: S1 S2 no murmur, Regular Rhythm, no LE edema Respiratory: BL equal air entry with NVBS. No rhonchi, wheezes, or crackles. No increased work of breathing GI: Soft, Nondistended, Nontender, Normal Bowel sounds + MSK: No gross deformities noted Skin: Warm, Dry, No rashes Neuro: Alert, Oriented to TPP, No Focal deficit Psych: Mood and Affect congruent, Cooperative on exam Constitutional: WD/WN, vitals as above no acute distress Eyes: + anicteric sclerae Neck: normal visual inspection Respiratory: Auscultation: + diminished lung sounds and + crackles Cardiovascular: Rate/Rhythm: regular rate and regular rhythm Heart Sounds: normal S1 and normal S2 Extremities: no edema Skin: no rashes, warm and dry Neurologic: no focal motor deficits Psychiatric: Orientation: alert and oriented x 3 Results & Data Results & Data Vital Signs (Past 12 Hours) Vital Signs Temp Pulse Resp BP Pulse Ox O2 Del Method O2 Flow Rate 01/02/25 22:25 36.7 C 77 16 151/67 H 90 Nasal Cannula 2 01/02/25 21:50 Nasal Cannula 2 01/02/25 19:25 81 18 89 L Nasal Cannula 2
[2025-01-03 07:46] LABS: Hematocrit (blood only) 32.5 % (42.0-52.0); Hemoglobin 10.6 g/dl (14.0-18.0); Mean Corpuscular Hemoglobin 30.9 pg (25.0-34.0); Mean Corpuscular Hgb Conc 32.6 g/dL (32.0-36.0); Mean Corpuscular Volume 94.8 fL (80.0-100.0); Mean Platelet Volume 11.1 fL (9.4-12.4); Nucleated RBC # (auto) 0.25 K/uL (0.00-0.12); Nucleated RBC % (auto) 5.1 %; Platelet Count 133 K/uL (130-400); RDW Coefficient of Variation 15.5 % (11.5-14.5); RDW Standard Deviation 53.6 fL (36.4-46.3); Red Blood Count 3.43 M/uL (4.70-6.10); White Blood Count 4.92 K/ul (4.8-10.8)
[2025-01-03 08:02] LABS: BUN Creatinine Ratio 16.2 (10-20); Calcium 8.5 mg/dl (8.6-10.3); Phosphorus 2.9 mg/dl (2.5-4.9); Potassium 3.5 mmol/L (3.5-5.1)
[2025-01-03] MEDS: allopurinoL 100 MG TAB PO SCH (08:26)
--- NOTE | 2025-01-03 08:26 | Pulmonology Progress Note ---
Date of Service January 03, 2025 Assessment & Plan (1) Hypoxia: (2) SOB (shortness of breath): (3) Small cell lung cancer: (4) Pleural effusion: Plan Impression: 69-year-old male with extensive small cell lung cancer currently on second line due to progression of disease and undergoing consolidative radiation therapy. He has completed a course of antibiotics for community-acquired pneumonia but does have a history of Pseudomonas bacteremia. He is neutropenic but has not been febrile. Patient underwent thoracentesis which shows probable transudative fluid, cultures no growth to date and cytology negative. Oxygenation is improving with diuresis Recommendations: 1. Pleural effusion: Bilateral pleural effusion status postthoracentesis on the right. Fluid appears transudative. Cytology negative. Likely represents hydrostatic fluid. Tolerating diuresis with improvement in oxygenation. Kidney function improved. Continue Lasix with attention to kidney function and electrolytes. 2. Blood cultures no growth to date. As long as he is clinically improving, do not see an indication to pursue bronchoscopy or additional aggressive interventions. 4. Cannot rule out potentially pulmonary ICI toxicity however he has been off the immune checkpoint inhibitor for some time. Patient's current chemotherapeutic agents are an alkylating agents which are unlikely to cause pulmonary toxicity. Cardiac toxicity is also uncommon. 5. Hypoxemia: Continue to wean oxygen as tolerated. Would defend oxygen saturations of 90%. He is down to 2 L at this point in time. Would recommend formal two-step prior to discharge. Patient appears to be responding favorably and approaching discharge. He can follow-up with Dr. Gonzalez in the outpatient setting if pulmonary follow-up is needed. Pulmonary will sign off. Feel free to contact us with questions or concerns Admission and Anticipated Discharge Date Admission Date: December 25, 2024 Subjective Patient seen and examined. Family at bedside. He is significantly improved today. His oxygen requirement is significantly better. He is coughing. He was able to ambulate. He overall feels much better. Review of Systems 2 Review of Systems: All systems reviewed & are unremarkable except as noted in Subjective Physical Exam 2 Constitutional: WD/WN, vitals as above no acute distress Eyes: + anicteric sclerae Neck: normal visual inspection Respiratory: Auscultation: + diminished lung sounds and + crackles Cardiovascular: Rate/Rhythm: regular rate and regular rhythm Heart Sounds: normal S1 and normal S2 Extremities: no edema Skin: no rashes, warm and dry Neurologic: no focal motor deficits Psychiatric: Orientation: alert and oriented x 3 Results & Data Results & Data Vital Signs (Past 12 Hours) Vital Signs Temp Pulse Resp BP Pulse Ox O2 Del Method O2 Flow Rate 01/03/25 07:38 80 16 96 Nasal Cannula 2 01/03/25 07:35 36.5 C 79 16 157/70 H 91 Room Air 01/02/25 22:25 36.7 C 77 16 151/67 H 90 Nasal Cannula 2 01/02/25 21:50 Nasal Cannula 2 Laboratory Results 01/03/25 07:31 01/03/25 07:31 Diagnostic Findings No new imaging PG Care Time/CCT Total # of Minutes Spent Total Time Spent with Patient: Total time spent is greater than 50% in coordination of care (as documented) at patient's floor/unit and/or counseling patient: Coding Level of Care Code 15241 SUB INP/OBS CARE 2/35MIN Diagnoses Hypoxia R09.02 SOB (shortness of breath) R06.02 Small cell lung cancer C34.90 Pleural effusion J90
[2025-01-03] MEDS: FUROSEMIDE 20 MG TAB PO SCH (08:39)
[2025-01-03 08:42] LABS: White Blood Count 4.95 K/ul (4.8-10.8)
--- NOTE | 2025-01-03 11:36 | Nephrology Progress Note ---
Date of Service January 03, 2025 Assessment & Plan (1) Acute kidney injury superimposed on CKD: Plan: Creatinine downtrending. Electrolytes normal. Volume status acceptable. Non- oliguric. No emergent indication for dialysis. AVE attributed to TLS. Baseline creatinine 1.6 mg/dL. History of AVE requiring HD in September. Continue furosemide to encourage negative fluid balance. Switched to 60 mg PO QAM. Furosemide to encourage UOP. Goal is negative ~1 L/d. Titrate diuretic as needed. Continue NaHCO3 as Rx. For hyperuricemia, allopurinol 150 mg daily. Document I/Os. Repeat serum metabolic profile tomorrow AM. Medications are appropriate for kidney function. (2) Anemia: Plan: Venofer 200 mg daily x 4/5 today. Epogen 40,000 units x 1 dose given on 12/31/24. (3) Tumor lysis syndrome: Plan: Allopurinol to 150 mg daily. (4) Small cell lung cancer: Admission and Anticipated Discharge Date Admission Date: December 25, 2024 Subjective No acute events overnight. Emmett was seen and evaluated with his at the bedside. He feels well. Denies significant shortness of breath. No fevers or chills. Edema improving. Review of Systems Review of Systems: All systems reviewed & are unremarkable except as noted in HPI & below Physical Exam Constitutional: WD/WN, vitals as above well developed; no acute distress Eyes: + anicteric sclerae ENMT: Mouth: no oral mucosal abnormality and oral mucous membranes not dry Neck: normal visual inspection and trachea midline Respiratory: normal respiratory effort Auscultation: + diminished lung sounds and + rales Cardiovascular: Rate/Rhythm: regular rate Heart Sounds: normal S1 and normal S2 Extremities: + edema Musculoskeletal: Extremities: no cyanosis and no clubbing Skin: no jaundice Neurologic: Motor/Sensory: no tremor and no asterixis Psychiatric: Orientation: alert and oriented x 3 Results & Data Vital Signs (Past 12 Hours) Vital Signs Temp Pulse Resp BP BP Pulse Ox O2 Del Method 01/03/25 10:58 76 20 92 Nasal Cannula 01/03/25 09:25 36.7 C 80 22 148/62 H 92 Nasal Cannula 01/03/25 08:48 36.4 C L 81 24 166/65 H 91 Nasal Cannula 01/03/25 08:25 Nasal Cannula 01/03/25 07:38 80 16 96 Nasal Cannula 01/03/25 07:35 36.5 C 79 16 157/70 H 91 Room Air O2 Flow Rate 01/03/25 10:58 2 01/03/25 09:25 2 01/03/25 08:48 2 01/03/25 08:25 2 01/03/25 07:38 2 01/03/25 07:35 Laboratory Results Laboratory Results - last 24 hr 01/03/25 01/03/25 07:31 07:31 WBC 4.92 4.95 RBC 3.43 L Hgb 10.6 L Hct 32.5 L MCV 94.8 MCH 30.9 MCHC 32.6 RDW Std Deviation 53.6 H RDW Coeff of Iraida 15.5 H Plt Count 133 MPV 11.1 Neut # (Auto) 2.80 Absolute Nucleated RBC 0.25 H Nucleated RBC % (auto) 5.1 Sodium 142 Potassium 3.5 Chloride 107 Carbon Dioxide 26 Anion Gap 9 BUN 45 H Creatinine 2.77 H D Est Cr Clr Drug Dosing 24.0 eGFR 23.84 BUN/Creatinine Ratio 16.2 Glucose 95 Calcium 8.5 L Phosphorus 2.9 Albumin 3.1 L PG Care Time/CCT Total # of Minutes Spent Total Time Spent with Patient: Total time spent is greater than 50% in coordination of care (as documented) at patient's floor/unit and/or counseling patient: Coding Level of Care Code 45918 SUB INP/OBS CARE 3/50MIN Diagnoses Acute kidney injury superimposed on CKD N17.9; N18.9 Anemia D64.9 Tumor lysis syndrome E88.3 Small cell lung cancer C34.90
[2025-01-04 06:12] LABS: Bilirubin,Total 0.5 mg/dl (0.2-1.0); Calcium 8.5 mg/dl (8.6-10.3); Creatinine Clr Calc Pharmacy 24.1 ml/min; Globulin 2.9 gm/dl (2.5-4.0); Potassium 3.4 mmol/L (3.5-5.1); Total Protein 5.7 gm/dl (6.0-8.3)
[2025-01-04 06:58] LABS: Hematocrit (blood only) 31.9 % (42.0-52.0); Hemoglobin 10.1 g/dl (14.0-18.0); Mean Corpuscular Hemoglobin 30.3 pg (25.0-34.0); Mean Corpuscular Hgb Conc 31.7 g/dL (32.0-36.0); Mean Corpuscular Volume 95.8 fL (80.0-100.0); Mean Platelet Volume 11.6 fL (9.4-12.4); Nucleated RBC # (auto) 0.28 K/uL (0.00-0.12); Nucleated RBC % (auto) 4.7 %; Platelet Count 149 K/uL (130-400); RDW Coefficient of Variation 15.4 % (11.5-14.5); Red Blood Count 3.33 M/uL (4.70-6.10); White Blood Count 5.96 K/ul (4.8-10.8)
[2025-01-04 07:04] VITALS: RESP 18
[2025-01-04 07:08] VITALS: BP 168/67; TEMP 97.5
[2025-01-04 07:27] LABS: ALC (manual) 0.42 K/uL (1.2-3.4); ANC (manual) 3.99 K/uL (1.4-6.5); Basophils # (manual) 0.06 K/uL (0-0.2); Basophils % (manual) 1 %; Dohle Bodies 2+; Eosinophils # (manual) 0.06 K/uL (0-0.50); Eosinophils % (manual) 1 %; Lymphocytes # (manual) 0.42 K/uL (1.2-3.4); Lymphocytes % (manual) 7 %; Metamyelocytes # (manual) 0.54 K/uL (0-0); Metamyelocytes % (manual) 9 %; Monocytes # (manual) 0.54 K/uL (0.11-0.59); Monocytes % (manual) 9 %; Myelocytes # (manual) 0.36 K/uL (0-0); Myelocytes % (manual) 6 %; Neutrophils # (manual) 3.99 K/uL (1.40-6.50); Neutrophils % (manual) 67 %; Polychromasia 1+; Toxic Granulation 2+
[2025-01-04] MEDS: POTASSIUM CHLORIDE CRTAB 20 MEQ TABCR PO STA (08:19)
--- NOTE | 2025-01-04 10:13 | Nephrology Progress Note ---
Date of Service January 04, 2025 Assessment & Plan (1) Acute kidney injury superimposed on CKD: Plan: Creatinine stable. Electrolytes normal. Volume status acceptable. AVE attributed to TLS. Baseline creatinine 1.6 mg/dL. History of AVE requiring HD in September. Close outpatient nephrology follow up arranged (January 19). Labs will be obtained within 1 week of discharge. Continue furosemide 60 mg PO QAM. NaHCO3 can be stopped. Continue allopurinol 150 mg daily. (2) Anemia: Plan: Venofer 200 mg daily x 5/ today. Epogen 40,000 units x 1 dose given on 12/31/24. (3) Small cell lung cancer: Admission and Anticipated Discharge Date Admission Date: December 25, 2024 Subjective No acute events overnight. Emmett was seen and evaluated with his at the bedside. He expects to be discharged home today. Overall, he feels well. He continues to deny significant dyspnea. Stable pedal edema is noted. Review of Systems Review of Systems: All systems reviewed & are unremarkable except as noted in HPI & below Physical Exam Constitutional: WD/WN, vitals as above well developed; no acute distress ENMT: Mouth: oral mucous membranes not dry Neck: normal visual inspection and trachea midline Respiratory: normal respiratory effort Auscultation: + diminished lung sounds and + rales Cardiovascular: Rate/Rhythm: regular rate Heart Sounds: normal S1 and normal S2 Extremities: + pedal edema Musculoskeletal: Extremities: no cyanosis and no clubbing Skin: no jaundice Neurologic: Motor/Sensory: no tremor and no asterixis Psychiatric: Orientation: alert and oriented x 3 Results & Data Vital Signs (Past 12 Hours) Vital Signs Temp Pulse Pulse Resp BP Pulse Ox O2 Del Method 01/04/25 07:20 Nasal Cannula, Nebulizer 01/04/25 07:20 01/04/25 07:08 36.4 C L 72 18 168/67 H 91 Nasal Cannula 01/04/25 07:03 71 18 91 Nasal Cannula O2 Del Method O2 Flow Rate O2 Flow Rate 01/04/25 07:20 2 01/04/25 07:20 Nasal Cannula 2 01/04/25 07:08 2 01/04/25 07:03 2 Laboratory Results Laboratory Results - last 24 hr 01/04/25 05:25 WBC 5.96 RBC 3.33 L Hgb 10.1 L Hct 31.9 L MCV 95.8 MCH 30.3 MCHC 31.7 L RDW Std Deviation 52.0 H RDW Coeff of [place] 15.4 H Plt Count 149 MPV 11.6 Absolute Nucleated RBC 0.28 H Nucleated RBC % (auto) 4.7 Neutrophils % (Manual) 67 Lymphocytes % (Manual) 7 Monocytes % (Manual) 9 Eosinophils % (Manual) 1 Basophils % (Manual) 1 Metamyelocytes % (Man) 9 Myelocytes % (Man) 6 Neutrophils # (Manual) 3.99 Total Absolute Neuts 3.99 Lymphocytes # (Manual) 0.42 L Total Abs Lymphocytes 0.42 L Monocytes # (Manual) 0.54 Eosinophils # (Manual) 0.06 Basophils # (Manual) 0.06 Metamyelocytes # (Man) 0.54 H Myelocytes # (Manual) 0.36 H Toxic Granulation 2+ Dohle Bodies 2+ Polychromasia 1+ Sodium 143 Potassium 3.4 L Chloride 108 H Carbon Dioxide 27 Anion Gap 8 BUN 36 H Creatinine 2.76 H Est Cr Clr Drug Dosing 24.1 eGFR 23.95 BUN/Creatinine Ratio 13.0 Glucose 90 Calcium 8.5 L Total Bilirubin 0.5 AST 40 H ALT 38 Alkaline Phosphatase 310 H Lactate Dehydrogenase 285 H Total Protein 5.7 L Albumin 2.8 L Globulin 2.9 Albumin/Globulin Ratio 1.0 PG Care Time/CCT Total # of Minutes Spent Total Time Spent with Patient: Total time spent is greater than 50% in coordination of care (as documented) at patient's floor/unit and/or counseling patient: Coding Level of Care Code 10831 SUB INP/OBS CARE 3/50MIN Diagnoses Acute kidney injury superimposed on CKD N17.9; N18.9 Anemia D64.9 Small cell lung cancer C34.90
[2025-01-04 10:23] VITALS: O2SAT 92
[2025-01-04 13:39] VITALS: PULSE 71
--- NOTE | 2025-01-04 15:17 | Discharge Summary ---
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 He feels much improved after being placed on supplemental O2 and receiving a DuoNeb treatment. He states that he knows he has "bad cancer" and wants to minimize his time in the hospital. He is agreeable to stay temporarily, receive nebulizer treatments, and have home O2 arranged for discharge. He denies chest pains. He has abdominal bloating and some right sided abdominal pain likely from increased hepatomegaly and liver metastases. He denies any fevers or chills. He is admitted for acute respiratory failure with hypoxemia in the setting of metastatic lung cancer Admission Exam Per Admitting Provider Constitutional: WD/WN, vitals as above Neck: trachea midline, no thyromegaly Respiratory: normal respiratory effort; no cough Auscultation: + diminished lung sounds (At bases bilaterally); no crackles, no rhonchi and no wheezes Cardiovascular: Rate/Rhythm: regular rate and regular rhythm Heart Sounds: + murmur (2/6 holosystolic murmur at left upper sternal border) Chest (Breasts): Chest: normal inspection of chest Gastrointestinal (Abdomen): normal bowel sounds, soft, nontender, no hepatosplenomegaly Musculoskeletal: Extremities: extremities normal to inspection; no cyanosis and no clubbing Skin: no rashes, warm and dry Neurologic: moves all extremities and awake; no focal motor deficits Psychiatric: A+Ox3, euthymic affect Lymphatic: no lymphedema Principal Diagnosis 1. Acute Respiratory Failure with Hypoxemia in setting of Pneumonia/COPD/Small Cell Lung Cancer Discharge Exam Constitutional: Well appearing, No acute distress, PILCCOD: Negative HEENT: Atraumatic, Normocephalic, No conjunctival injection CVS: S1 S2 no murmur, Regular Rhythm, no LE edema Respiratory: BL equal air entry with NVBS. No rhonchi, wheezes, or crackles. No increased work of breathing GI: Soft, Nondistended, Nontender, Normal Bowel sounds + MSK: No gross deformities noted Skin: Warm, Dry, No rashes Neuro: Alert, Oriented to TPP, No Focal deficit Psych: Mood and Affect congruent, Cooperative on exam Constitutional WD/WN, vitals as above no acute distress Eyes + anicteric sclerae Neck normal visual inspection Respiratory Auscultation: + diminished lung sounds and + crackles Cardiovascular Rate/Rhythm: regular rate and regular rhythm Heart Sounds: normal S1 and normal S2 Extremities: no edema Skin no rashes, warm and dry Neurologic no focal motor deficits Psychiatric Orientation: alert and oriented x 3 Discharge Data Allergies Allergy/AdvReac Type Severity Reaction Status Date / Time No Known Allergies Allergy Unverified 12/26/24 12:00 Consultations 12/24/24 02:55 ED Decision to Admit Stat 12/24/24 07:36 Consult Oncology Routine 12/25/24 07:50 Consult Nephrology Routine 12/29/24 14:57 Consult Pulmonology Routine Ordered Studies 12/29/24 15:56 CT chest diagnostic wo con Routine Hospital Course (1) Pleural effusion: (2) SOB (shortness of breath): (3) Small cell lung cancer: (4) Pulmonary hypertension: (5) Pancytopenia due to antineoplastic chemotherapy: Plan This patient is a 69-year-old male with a history of 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 He feels much improved after being placed on supplemental O2 and receiving a DuoNeb treatment. He states that he knows he has "bad cancer" and wants to minimize his time in the hospital. He is agreeable to stay temporarily, receive nebulizer treatments, and have home O2 arranged for discharge. He denies chest pains. He was admitted for acute respiratory failure with hypoxemia in the setting of metastatic lung cancer. #Pneumonia #pleural effsusion -Completed dose of Ceftriaxone -Thoracentesis performed on 12/30/2024 #Pancytopenia due to antineoplastic chemotherapy -Pancytopenia likely due to side effects of chemotherapy -Appreciate heme/onc recommendations. 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 He pre viously required dialysis a few months ago temporarily. Follows with nephrology. He reports he has been taking p.o. without nausea or vomiting. His BNP was elevated at 500 and troponin minimally elevated at 29 down to 27 on recheck. ECG without ischemic changes. -According to nephro, he is not at point to start dialysis #Anemia of chronic disease -hemoglobin low but stable from previous at 10.1, likely secondary to anemia of chronic disease and from antineoplastic therapy - Follow CBC in the outpatient #GERD-no acute issues - Continue lansoprazole Total Time Total Time Spent Total Time Spent (In Minutes): <30 Discharge Plan Discharge Items Patient Disposition: Home - Self-Care Reason For Visit: HYPOXEMIA Discharge Diagnosis: hypoxemia Condition on Discharge: Fair Activity: Resume your previous activity Non-emergency contact: Primary Care Provider, Hand Wood Sander, Oncologist and [employer]er Call non-emergency contact if: you have any medication questions, your symptoms worsen and you have a fever Follow-up/Referrals: Daniel Dunn DO [Physician] - 01/19/25 11:00 am Harinder Cardenas DO [Primary Care Provider] - 01/13/25 11:20 am Remigio Smith MD [Physician] - (THE OFFICE WILL CALL YOU WITH A HOSPITAL FOLLOW UP APPT.) April Bardales CRNP [Nurse Practitioner] - 01/11/25 10:00 am Diet: Regular Addtl Attending Provider Instructions: You were admitted to the hospital with shortness of breath and were treated by several specialists. Following discharge, it is very important that you follow up with nephrology, pulmonology, and hematology-oncology. Please have your labs drawn in the week following discharge. You have appointments with: - Nephrology, Dr. Dunn 01/19 @11AM - Hematology/Oncology 01/11 @10AM - You should receive a call from Dr. Smith's office to set up a pulmonology follow up appointment. Please reach out to their office directly if you do not hear from them by the end of the week. New medications: - Allopurinol: take one 150mg tablet daily - Furosemide: continue to take 60mg daily You are also being sent home on home supplemental oxygen. Please reach out to your outpatient doctor if you have increasing oxygen requirement. Pending Studies at Discharge: No Stand-Alone Forms: My [facility] untapt, Smoking Cessation Medications and DC Order Prescriptions: New allopurinol 100 mg Tablet 150 mg PO QAM 30 Days Qty: 45 0RF furosemide 20 mg Tablet 60 mg PO QAM 30 Days Qty: 90 0RF sildenafil (pulm.hypertension) [Revatio] 20 mg Tablet 20 mg PO DAILY PRN (Reason: shortness of breath) 30 Days Qty: 30 0RF Continued trazodone 50 mg tablet 50 mg PO HS PRN (Reason: Sleep) Gas-X 250 mg capsule 250 mg PO DAILY PRN (Reason: Abdominal Discomfort) rosuvastatin 10 mg tablet 10 mg PO QPM Qty: 90 3RF Rx Instructions: every evening betamethasone dipropionate 0.05 % cream 1 applic topical BID PRN (Reason: skin irritation) Qty: 45 0RF triamcinolone acetonide 0.1 % cream 1 applic topical BID PRN (Reason: Dry scaling areas) Qty: 15 0RF lansoprazole 30 mg capsule,delayed release(DR/EC) 30 mg PO QAM (DME) blood-glucose meter [OneTouch Verio Flex Start] Kit See Rx Instructions .Route Qty: 1 0RF Rx Instructions: Checked fasting blood sugar in AM; discuss further diabetes management with PCP (DME) blood-glucose meter [OneTouch Verio Flex Start] Kit See Rx Instructions .Route Qty: 1 0RF Rx Instructions: As directed amlodipine [Norvasc] 5 mg Tablet 5 mg PO QAM Qty: 30 0RF magnesium oxide 400 mg (241.3 mg magnesium) tablet 400 mg PO BID Aurelia-Mora 0.8 mg Tablet 1 tab PO DAILY acetaminophen [Tylenol Extra Strength] 500 mg Tablet 500 mg PO Q6H MDD only 1000mg daily PRN (Reason: Pain) carvedilol 25 mg tablet 25 mg PO [facility] Rx Instructions: must administer with a meal/food finasteride 5 mg tablet 5 mg PO QAM Discontinued allopurinol 100 mg tablet 100 mg PO QAM sildenafil (pulm.hypertension) [Revatio] 20 mg tablet 20 mg PO [id number] Discharge Orders: Discharge Order (Routine); Ordered 01/04/25 Ordered By: Rebecca Rahman Admission Data Admit Date/Time: 12/25/24 09:55 Attending Provider: Coy Kapoor Admit Provider: Izabella Ruth Primary Care Provider: Harinder Cardenas Other Providers: Izabella Ruth; Monique Werner; Carlo Hastings; Aubrey Knowles; Remigio Smith; Beckie Gonzalez; Sneha Jaramillo; Winston Sal Other Interventions: Discharge Summary Assessment (RN) Last Done: 01/04/25 13:36 Supervising Physician Co-Signing Physician Notes I personally examined the patient and verified all funes points of history and exam, discussed case, and agree with decision making with Dr Rahman Feels good, wants to go home. Nephrology input appreciated. Oxygen set up. Vitals noted, in general he is awake and alert pleasant no distress. HEENT normocephalic atraumatic mucous membranes moist. Breathing unlabored no accessory muscle use good effort. Skin without rashes pallor or icterus. Neuro without focal deficits. AVE on CKD with recurrent tumor lysis syndromenow improved. Stable for home. Metastatic lung cancerwants to continue to pursue treatment. See prior advance care planning discussions. Chronic hypoxic respiratory failureappears to be due to cancer as well as pneumonia and effusion. Stabilized on oxygen. safe/stable for home, otherwise as above Resident Activity Tracking Resident Involvement: Resident Care Provided Care Provided: Adult [facility] Medicine
--- NOTE | 2025-01-04 17:34 | Billing Data ---
Date of Service January 04, 2025 Coding Level of Care Code 22551 IN/OBS DISCH 30 MIN/LESS
== END 2025-01-04 14:04 | disposition home or self-care (01) | DRG 193 ==
LOC: ED 23:12 → EDINP 23:12 → SUATTDRO 12-24 04:27 → 2N 12-24 07:36 → SUATTDRO 12-25 09:55 → 3E 12-27 10:46